=== PATIENT | female | born 1940 | race Caucasian/White ===

== ENCOUNTER 2021-06-05 13:54 | Outpatient (REF) | payer MEDICARE, SELFPAY ==
--- NOTE | ~2021-06-05 | XR_ITS ---
EXAMINATION: XR CHEST CLINICAL INFORMATION: Dyspnea on exertion COMPARISON: Previous chest x-ray most recent November 2014 TECHNIQUE: 2 views of the chest were obtained. FINDINGS: The cardiac and mediastinal contours are stable. The thoracic aorta is tortuous but unchanged. The lungs are clear. There is no pleural effusion or pneumothorax. There are degenerative changes of the spine. XR/XR chest 2V IMPRESSION: No evidence for acute disease in the chest.
== END 2021-06-05 13:55 | disposition home or self-care (01) ==
LOC: HO.XRAY 13:54
PROVIDERS: PCP Internal Medicine; Visit Provider Internal Medicine
DX: R06.00 Dyspnea, unspecified (principal)
CPT/HCPCS: 71046

== ENCOUNTER 2021-08-14 08:29 | Outpatient (REF) | payer MEDICARE, SELFPAY ==
--- NOTE | 2021-08-14 | PFT_ITS ---
Forced vital capacity is 73%, FEV1 93%, FEV1/FVC ratio 94. TNL41-64 215% and MVV is 93%. Patient declined to have bronchodilator challenge. Total lung capacity 76%. Residual volume is 70%. Diffusion capacity 74%. These findings are consistent with mild restrictive pulmonary disorder. No obstructive airway disorder. MD PAULINO Christy/JOSÉ / [id number]
== END 2021-08-14 08:30 | disposition home or self-care (01) ==
LOC: HO.RESP 08:29
PROVIDERS: PCP Internal Medicine; Visit Provider Internal Medicine
DX: R06.00 Dyspnea, unspecified (principal)
CPT/HCPCS: 94010; 94727; 94729

== ENCOUNTER 2021-09-04 13:15 | Outpatient (REF) | payer MEDICARE, SELFPAY ==
--- NOTE | ~2021-09-04 | CT_ITS ---
EXAMINATION: CT CHEST WITHOUT CONTRAST CLINICAL INFORMATION: Dyspnea. COMPARISON: Chest x-ray 11/05/2021. TECHNIQUE: Multidetector volumetric CT imaging of the chest was done. Axial MIP volume rendering provided. Sagittal and coronal reformatted images were obtained. This CT examination was performed using dose optimization techniques as appropriate, variously including the following: *Automated exposure control *Adjustment of mA and/or kV according to patient size (this includes techniques or standardized protocols for targeted exams where dose is matched to indication/reason for exam; i.e. extremities or head) *Use of iterative reconstruction technique DLP: 148 mGy-cm. FINDINGS: DISPLAY MAKER: Unremarkable chest exam. LUNGS: The lungs are well expanded with mild ground-glass attenuation seen throughout both upper lobes and lower lobes. There is peripheral reticular stranding in the left upper lobe, lower lobe and lingular segments. Minimal peripheral reticular stranding is also seen in the right upper lobe anterior segment. There are no pulmonary nodules seen. There is nonspecific linear focal thickening of the right major fissure. Suspect mild loss of left lung volume. MEDIASTINUM: The thyroid lobes are symmetrical and normal. The central trachea and the bronchi are widely patent. The heart size and the great vessels are normal caliber. There are small shotty lymph nodes in the mediastinum. Trace coronary artery calcifications are present. No pericardial effusion seen. PLEURA: There is no pleural effusion. No pleural mass or thickening. AXILLA: No lymphadenopathy. There is mild asymmetric thickening of the right breast parenchyma. UPPER ABDOMEN: Visualized liver, spleen, pancreas and bilateral adrenal glands are unremarkable. OSSEOUS STRUCTURES: There are degenerative disc changes and ventral spondylosis dorsal spine. No aggressive lytic or sclerotic process seen. CT/CT chest wo con IMPRESSION: Diffuse bilateral upper and lower lobe ground-glass attenuation. In addition there is peripheral reticular interstitial thickening in the anterior segments of left upper lobe, lingula and minimal right upper lobe suggestive of inflammatory or infectious process. No consolidation seen. No abnormal pleural effusion, pleural thickening or mediastinal lymphadenopathy. Fleischner guidelines were followed.
== END 2021-09-04 13:16 | disposition home or self-care (01) ==
LOC: HO.CT 13:15
PROVIDERS: Visit Provider Internal Medicine
DX: R06.00 Dyspnea, unspecified (principal)
CPT/HCPCS: 71250

== ENCOUNTER 2021-10-22 13:56 | Outpatient (REF) | payer MEDICARE, SELFPAY ==
[2021-10-22 14:17] LABS: MANUAL DIFF FLAG NO
[2021-10-22 15:09] LABS: Basophils Absolute Auto 0.1 X10*3/uL (0.0-0.2); Basophils Percent Auto 0.7 % (0-2); Eosinophils Absolute Auto 0.4 X10*3/uL (0.0-0.4); Eosinophils Percent Auto 5.6 % (0-4); Hematocrit 44.2 % (37.0-47.0); Hemoglobin 14.7 g/dl (12.0-16.0); Imm Gran Abs Auto 0.02 X10*3/uL (0.00-0.03); Imm Gran Pct Auto 0.3 % (0.0-0.4); Lymphocytes Percent Auto 27.9 % (20-40); Mean Corpuscular HGB Conc 33.3 g/dl (31.0-35.0); Mean Corpuscular Hemoglobin 29.9 pg (27.0-33.0); Mean Platelet Volume 9.9 fL (9.4-12.3); Monocytes Absolute Auto 0.4 X10*3/uL (0.1-1.2); Neutrophils Absolute Auto 4.3 x10*3/uL (2.0-8.3); Neutrophils Percent Auto 59.5 % (45-73); Platelet Count 233 X10*3/uL (160-400); Red Blood Count 4.91 X10*6/uL (4.20-5.50); Red Cell Distribution Width 14.5 % (11.0-16.0); White Blood Count 7.3 X10*3/uL (4.8-10.8)
[2021-10-22 15:53] LABS: Erythrocyte Sedimentation Rate 18 MM/HR (0-20)
[2021-10-27 14:25] LABS: Angiotensin Converting Enzyme 45.8 U/L (9-67)
[2021-10-27 16:07] LABS: Alpha 1 Anti-trypsin 144 mg/dL (83-199)
[2021-10-27 17:26] LABS: Cyclic Citrullinated Peptide <16 UNITS
[2021-10-27 18:46] LABS: ANA Pattern 2 Nuclear, Homogeneous; ANA Titer 2 1:40 titer; Anti Nuclear Antibody Screen POSITIVE (NEGATIVE); Anti Nuclear Antibody Titer 1:40 titer
[2021-10-28 09:17] LABS: Anti DNA DS Antibody <1 IU/mL; Myeloperoxidase Antibody <1.0 AI; Proteinase 3 PR3 Antibodies <1.0 AI
[2021-10-28 14:46] LABS: Asperg fumigatus Precip Abs NEGATIVE (NEGATIVE); Micropoly faeni Abs NEGATIVE (NEGATIVE); Pigeon serum Abs NEGATIVE (NEGATIVE); Saccharo pora viridis Abs NEGATIVE (NEGATIVE); Thermo candidus Abs NEGATIVE (NEGATIVE); Thermoa vulgaris #1 NEGATIVE (NEGATIVE)
== END 2021-10-22 13:57 | disposition home or self-care (01) ==
LOC: HO.LAB 13:56
PROVIDERS: PCP Internal Medicine; Visit Provider Hospitalist
DX: J84.9 Interstitial pulmonary disease, unspecified (principal); R91.8 Other nonspecific abnormal finding of lung field
CPT/HCPCS: 36415; 82103; 82164; 85025; 85652; 86021; 86038; 86039; 86200; 86225; 86331; 86606; 86609; 94618; 99202

== ENCOUNTER → 2021-12-03 12:51 | Outpatient (BNVA) | payer MEDICARE, SELFPAY | PROVIDERS: PCP Internal Medicine; Visit Provider Hospitalist | DX: J84.9 Interstitial pulmonary disease, unspecified (principal); J18.9 Pneumonia, unspecified organism; J96.11 Chronic respiratory failure with hypoxia | CPT/HCPCS: 94618; 99202; 99212 ==

== ENCOUNTER 2021-12-15 10:21 | Outpatient (REF) | payer MEDICARE, SELFPAY ==
--- NOTE | ~2021-12-15 | CT_ITS ---
EXAMINATION: CT CHEST WITHOUT CONTRAST CLINICAL INFORMATION: Pneumonia COMPARISON: Previous chest CT August 2021 and chest x-ray May 2021 TECHNIQUE: Multidetector volumetric CT imaging of the chest was done. Axial MIP volume rendering provided. Sagittal and coronal reformatted images were obtained. This CT examination was performed using dose optimization techniques as appropriate, variously including the following: *Automated exposure control *Adjustment of mA and/or kV according to patient size (this includes techniques or standardized protocols for targeted exams where dose is matched to indication/reason for exam; i.e. extremities or head) *Use of iterative reconstruction technique DLP: 322 mGy-cm FINDINGS: ELECTRONIC TEST TECHNICIAN: Volume loss and increased markings in the left lung LUNGS: There is slight volume loss to the left hemithorax with shift the central mediastinal structures to the left. There is [place] 6 attenuation in the lungs questionable for a mosaic perfusion. There are increased linear markings seen in the left upper and left lower lobes and denser scattered areas of groundglass attenuation. May represent post infectious or inflammatory scarring. Unilateral appearance makes interstitial lung disease unlikely. No suspicious pulmonary nodule. No endobronchial or endotracheal lesion. MEDIASTINUM: The mediastinum is normal. CORONARY ARTERY CALCIFICATION: Mild PLEURA: There is no pleural effusion. No pleural mass or thickening. AXILLA: No lymphadenopathy. UPPER ABDOMEN: Abnormal contour to the upper pole of the right kidney measuring 3 cm. Appearance is questionable for complex cyst or mass. Follow-up renal ultrasound recommended. Post cholecystectomy. Diverticulosis of the colon. OSSEOUS STRUCTURES: Degenerative changes of the spine and left shoulder.. CT/CT chest wo IV con IMPRESSION: Slight volume loss to the left hemithorax with shift of the central mediastinal structures to the left. Increased linear markings and denser areas of groundglass attenuation in the left upper and left lower lobes. May represent post infectious or inflammatory scarring. Unilateral appearance makes interstitial lung disease unlikely. Mosaic attenuation in the lungs questionable for mosaic perfusion. 3 cm irregular contour to the upper pole of the right kidney questionable for complex cyst or mass. Follow-up renal ultrasound recommended. Fleischner guidelines were followed.
[2021-12-16 15:56] LABS: Anti DNA DS Antibody 1 IU/mL; Antibody to SS-A Antigen <1.0 NEG AI (<1.0 NEG); Antibody to SS-B Antigen <1.0 NEG AI (<1.0 NEG); JO 1 Antibody <1.0 NEG AI (<1.0 NEG); Scleroderma 70 Antibody <1.0 NEG AI (<1.0 NEG)
[2021-12-17 10:26] LABS: Complement C3 148 mg/dL (83-193)
== END 2021-12-15 10:22 | disposition home or self-care (01) ==
LOC: HO.CT 10:21
PROVIDERS: PCP Internal Medicine; Visit Provider Hospitalist
DX: J84.9 Interstitial pulmonary disease, unspecified (principal)
CPT/HCPCS: 36415; 71250; 86160; 86225; 86235

== ENCOUNTER → 2022-01-12 13:56 | Outpatient (BNVA) | payer MEDICARE, SELFPAY | PROVIDERS: PCP Internal Medicine; Visit Provider Hospitalist | DX: J18.9 Pneumonia, unspecified organism (principal); J84.9 Interstitial pulmonary disease, unspecified; J96.11 Chronic respiratory failure with hypoxia; Z79.52 Long term (current) use of systemic steroids; Z99.81 Dependence on supplemental oxygen | CPT/HCPCS: 99212 ==

== ENCOUNTER 2022-02-09 11:09 | Outpatient (REF) | payer MEDICARE, SELFPAY ==
--- NOTE | ~2022-02-09 | US_ITS ---
EXAMINATION: US RETROPERITONEAL LIMITED (RENAL ONLY) CLINICAL INFORMATION: Renal mass seen on CT.. COMPARISON: CT chest 12/15/2021 TECHNIQUE: Real-time sonographic evaluation performed. FINDINGS: RIGHT KIDNEY: 12.0 x 4.7 x 6.0 cm (SAG x AP x TRV). There is a solid echogenic mass, lateral mid right kidney, at 33 x 32 x 33 mm. Renal cell carcinoma could have this appearance. This can be biopsied under ultrasound guidance. Right kidney otherwise normal. No calcification or hydronephrosis or perinephric collection. LEFT KIDNEY: 10.1 x 5.2 x 4.8 cm (SAG x AP x TRV). The kidney is normal in size, contour, and echogenicity. Renal cortical thickness is normal. No calculi or focal parenchymal lesions. No hydronephrosis. US/US renal BI IMPRESSION: Solid renal mass suspicious for a small hypernephroma. Recommend tissue sampling..
== END 2022-02-09 11:10 | disposition home or self-care (01) ==
LOC: HO.HMGCX 11:09
PROVIDERS: PCP Internal Medicine; Visit Provider Internal Medicine
DX: N28.1 Cyst of kidney, acquired (principal)
CPT/HCPCS: 76775

== ENCOUNTER → 2022-05-06 09:45 | Outpatient (BNVA) | payer MEDICARE, SELFPAY | PROVIDERS: PCP Internal Medicine; Visit Provider Hospitalist | DX: Z01.811 Encounter for preprocedural respiratory examination (principal); J84.9 Interstitial pulmonary disease, unspecified; J18.9 Pneumonia, unspecified organism; J96.11 Chronic respiratory failure with hypoxia; Z99.81 Dependence on supplemental oxygen | CPT/HCPCS: 94010; 94618; 99212 ==

== ENCOUNTER → 2022-07-30 12:58 | Outpatient (BNVA) | payer MEDICARE, SELFPAY | PROVIDERS: PCP Internal Medicine; Visit Provider Nurse Practitioner Family | DX: J84.9 Interstitial pulmonary disease, unspecified (principal) | CPT/HCPCS: 99212 ==

== ENCOUNTER 2022-09-01 10:03 | Outpatient (REF) | payer MEDICARE, SELFPAY ==
--- NOTE | 2022-09-01 11:30 | PFT_ITS ---
INDICATION: Interstitial lung disease. SPIROMETRY: The FEV1 to FVC of 92% with an FEV1 of 1.37 L which is 86% predicted and FVC of 1.4 L which is 68% predicted. LUNG VOLUMES: Total lung capacity 82% predicted with an expiratory reserve volume of 40% predicted. DIFFUSION CAPACITY: DLCO of 67% predicted. COMPARISONS: Not available at this time. IMPRESSION: No evidence of definitive obstructive nor restrictive ventilatory defects. The patient refused bronchodilators. So post bronchodilator numbers are not available. Lung volumes are low normal consistent with her interstitial lung disease and she does have a decrease in the expiratory reserve volume. The patient has a moderate diffusion impairment. We will need her previous PFTs to compare. Clinical correlation warranted. MD DANNY Eisenberg/JOSÉ / [id number]
== END 2022-09-01 10:04 | disposition home or self-care (01) ==
LOC: HO.RESP 10:03
PROVIDERS: PCP Internal Medicine; Visit Provider Hospitalist
DX: J84.9 Interstitial pulmonary disease, unspecified (principal)
CPT/HCPCS: 94010; 94727; 94729

== ENCOUNTER → 2022-09-01 11:30 | Outpatient (BNV) | payer MEDICARE, SELFPAY | PROVIDERS: PCP Internal Medicine; Visit Provider Hospitalist | DX: J84.9 Interstitial pulmonary disease, unspecified (principal) | CPT/HCPCS: 94060; 94727; 94729 ==

== ENCOUNTER 2022-09-07 12:35 | Outpatient (REF) | payer MEDICARE, SELFPAY ==
--- NOTE | ~2022-09-07 | CT_ITS ---
EXAMINATION: CT CHEST WITHOUT CONTRAST CLINICAL INFORMATION: Interstitial pulmonary disease. COMPARISON: None available. TECHNIQUE: Multidetector volumetric CT imaging of the chest was done. Axial MIP volume rendering provided. Sagittal and coronal reformatted images were obtained. This CT examination was performed using dose optimization techniques as appropriate, variously including the following: *Automated exposure control *Adjustment of mA and/or kV according to patient size (this includes techniques or standardized protocols for targeted exams where dose is matched to indication/reason for exam; i.e. extremities or head) *Use of iterative reconstruction technique DLP: 138 mGy-cm FINDINGS: SMALL ANIMAL CARETAKER: Expanded lungs are clear. LUNGS: There is centrilobular emphysema with increased intralobular interstitial thickening in the left upper lobe and to a lesser extent the right upper lobe. Also visualized is ground-glass attenuation in both upper lobes. Mild interstitial changes and thickening with atelectasis seen in the lingula. There is no bronchiectasis. No pulmonary nodules or mass. MEDIASTINUM: Heart size of the great vessels are normal caliber. Central trachea and the bronchi are widely patent. Thyroid lobes are symmetrical and normal. Small shotty lymph nodes are seen in the pretracheal and precarinal space. Most prominent lymph node measures 8 mm in the pretracheal space on axial image 11/10. CORONARY ARTERY CALCIFICATION: There is mild coronary artery calcifications present. PLEURA: There is no pleural effusion. No pleural mass or thickening. AXILLA: The dilated lymph nodes are present in bilateral axilla. UPPER ABDOMEN: Visualized liver, spleen, pancreas and bilateral adrenal glands are unremarkable. OSSEOUS STRUCTURES: No aggressive lytic or sclerotic process seen. CT/CT chest wo IV con IMPRESSION: 1. Emphysematous lungs with chronic interstitial thickening in left upper lobe, lingula and parenchymal haziness in both upper lobes and lower lobes. Findings are suggestive of chronic interstitial lung disease. 2. No acute pneumonic process or pleural effusion seen. 3. There are reactionary benign-appearing lymph nodes in the mediastinum. Fleischner guidelines were followed.
== END 2022-09-07 12:36 | disposition home or self-care (01) ==
LOC: HO.CT 12:35
PROVIDERS: PCP Internal Medicine; Visit Provider Nurse Practitioner Family
DX: J84.9 Interstitial pulmonary disease, unspecified (principal)
CPT/HCPCS: 71250

== ENCOUNTER 2022-09-21 14:38 | Outpatient (AMB) | payer MEDICARE, SELFPAY ==
[2022-09-21 15:16] VITALS: BP 126/70; PULSE 66; O2SAT 91; BMI 30.3
--- NOTE | 2022-09-21 15:16 | A.OFFVIS_ITS ---
Intake Vital Signs 09/21/22 15:16 Height 5 ft Weight 155 lb BMI 30.3 BP 126/70 Blood Pressure Location Lt brachial Position Sitting Pulse 66 Pulse Source Pulse Oximeter Pulse Oximetry (%) 91 L Oxygen Delivery Method Room Air Intake Visit Reasons: COPD Inventory Control Planner Required: No Allergies latex [LATEX] Allergy (Intermediate, Verified 09/21/22 15:20) RASH seasonal Allergy (Unknown, Uncoded 09/21/22 15:20) Anaphylaxis HPI HPI Comments History of Present Illness Details The patient is a 81 year woman who was referred to Pulmonary to evaluate abnormal CT scan of the chest. The patient states that she has been feeling otherwise well. Denies any significant shortness of breath or cough or any chest discomfort. However, she does state that [facility] and she does not do a lot of walking. She went to see her primary care doctor who checked her pulse oximeter and was noted to be low. Therefore she had additional imaging studies including a CT scan of the chest that was found to be abnormal. I did personally viewed the CT scan demonstrating areas of mosaic pattern is of ground-glass opacities and also some reticular changes primarily in the lingula. The patient denies any significant exposure to any fumes or toxins. Denies any hobbies with any exposures to organic or inorganic dusts. She denies any exposure to any farm animals or farm or hay. She does not have any pets. She denies any mold in the household. The interesting part of the story is that the patient has a identical twin who lives in [place]. At the same time that she was undergoing a CT scan of the chest for further evaluation of underlying interstitial lung disease the patient is identical sister was also going to the same process. She is also going to see a specialist. The details of that evaluation are not available at this time. She denies any significant rashes or joint pains or muscle discomfort or muscle weakness. During the office visit we did go for 6 minute walk test. The patient did desaturate down to 88%. She had a dyspnea score of 3/10 and did go up to 4-10 when she was a little more hypoxic. We did rest for a minute and her oxygen improved to the low 90s. The patient did qualify for oxygen but she does not 1 at this time. 12/03/2021 the patient is here for a pulmonary follow-up visit. She is here with her sister. She did take the prednisone. The prednisone made her feel better although did not really help her breathing symptoms. She really denies any significant dyspnea on exertion. She walks regularly and also uses a recumbent bike and denies any significant shortness of breath. We did review her blood work which was relatively negative except for a positive RD with the very low titer of 01:40. There is no real history of connective tissue conditions in the family. There is a history pulmonary fibrosis. Both her mother and also her sister that is being evaluated at this time. Her last CT scan did demonstrate reticular changes in addition to ground-glass opacities. 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 During the visit the patient did have evidence of bilateral crackles and her 6 minutes walk test she desaturated down to about 86%. Her dyspnea score was 5/10 during. based on that explained to the patient that she needs to start oxygen supplementation with activity. She is a bit reluctant but she is willing to try for now. Will plan to repeat the CT scan and then follow up with a painful to see you if there is no significant progression of the pulmonary fibrosis. With talk about considering all to have a biopsy although patient is at this point reluctant to do so. Would not be unreasonable to keep the patient on small dose of prednisone for that reason. Indeed she has worsening fibrotic changes using wanted fibrotic agent would also be an option. 01/12/2022 the patient is here with her daughter for pulmonary follow-up visit. She has been on the 10 mg of prednisone. She is concerned because of the adverse effects of the medication and affecting her sleep. We did keep her on the prednisone in view of the elevated RD and also the elevation in the eosinophils which may manifest with an interstitial process. Specially since she did have some areas of ground-glass opacities suggesting pneumonitis. The patient however denied a see any significant improvement or difference. She did have a repeat CT scan of the chest and we personally reviewed that together. We also compared to her last CT scan that she had several months back. Appears to be some interval increase in the degree of reticulations and pulmonary fibrosis primarily on the left lung more than the right. She still has areas of ground-glass opacities in addition to mosaic pattern. No clear etiology for the interstitial lung disease based on the blood work. The patient is not interested in pursuing any invasive diagnostic interventions such as biopsies. Clinically the patient is doing well and she denies any respiratory symptoms at all. All this came about because she was noted to have an abnormal CT scan when she was referred to Pulmonary. She did have 2 6 minutes walk test both that were consistent with hypoxia qualify for oxygen. The patient also had an overnight oximetry demonstrating significant hypoxia while sleeping at least for close to 3 hours for she spent below 88%. Therefore the patient needs to continue using the oxygen with activity and also at nighttime while sleeping. She is adamant that she has wants to get an [employer] device portable oxygen concentrator. Will go ahead and fill out some paperwork in order for her to receive that. the patient is wondering if she is going to have to stay on the oxygen. I did recommend that she continue to use it for now and we will retest her once she returns in . Patient is going to be weaning off the prednisone at this time. And the patient is not interested in any antifibrotic therapy at this time. Based on her clinical presentation during the next visit we can discuss further anti fibrotic therapy if she would like. Patient does have a lot of questions about her condition and the fact that she is fairly asymptomatic. The fact that her 20 sister also found to have some interstitial lung changes which she does not require oxygen and she is questioning the whole process. I can only tolerate that we have tested her multiple times and all times have demonstrated evidence of hypoxia even on the day of presentation the patient is stands that using the oxygen will help her with her organ function including heart brain and other end-organ functions. Her her daughter was wondering about a diagnosis next [place] to her for now based on the fact that there is some progression the possibility of idiopathic pulmonary fibrosis needs to be in differential. Explained to the patient and the daughter that with the idiopathic pulmonary fibrosis the fibrosis is progressive. Therefore, will continue to monitor for any progression of disease. 05/06/2022 the patient is here for a pulmonary preoperative evaluation. Overall the patient has been doing about the same from a respiratory status. She continues use the oxygen with activity and sleep. She denies any worsening shortness breath or any new respiratory complaints. She denies any evidence of any active connective tissue disease. She has been off all corticosteroid therapy. She was found to have a renal mass. Concerning for malignancy. Now after being evaluated by Urology see felt that she requires full nephrectomy. Because of her underlying respiratory disease stable also recommending ablation. We did review her spirometry also her PFTs from last year in addition to her 6 minutes walk test. Based on this the patient does have increased risk for perioperative pulmonary complications. However, she is medically optimize any condition is not worsening. Therefore, I do believe that she will tolerate general anesthesia and will tolerate her surgery. She will have increased risks including further hypoxia in addition to risk for pneumonia and atelectasis. Currently she is medically optimized from a pulmonary standpoint. She does not need any bronchodilator therapy. She is using her oxygen effectively. After she recovers from her surgery will reassess her underlying interstitial lung disease with a repeat CT scan and PFTs. At that point we can decide if there is any evidence of any progression to consider small dose steroids versus antifibrotic therapies. 09/21/2022 the patient is here for pulmonary follow-up visit. She recovering well from her surgery. She did have increased shortness of breath after surgery. She did follow-up in the office and was reassuring that everything was okay. The patient has been using the oxygen a little bit more often specially after surgery. she was having issues with high blood pressure she was started on a new blood pressure medication. After the medication she noticed that oxygen actually dropped to 84% which became very concerning for her. Therefore she stopped that medicine which was amlodipine. Seems that her blood pressure is better at this time. The patient also underwent a CT scan of the chest which I personally reviewed with her and her daughter. It appears some slight increase in the reticular changes primarily in the left side. There is also evidence of ground-glass opacities suggestion a component of inflammation or likely subtle scarring. Patient does have a history of slightly elevated connective tissue disease laboratory suggesting the possibility of connective tissue disease related pulmonary fibrosis. She had been on prednisone before and she did tolerated fairly well. She is willing to try smaller dose to see if she can tolerated and try to minimize progression of the scarring. Another option is to consider antifibrotic agent specially with slight worsening of disease. She is going to consider this as well. Will go ahead and start her on therapy with prednisone 10 mg daily and she is going to taper down to the lowest most effective dose which I hope is going to be 10 mg every other day. She is going to monitor closely her oxygen supplementation. Also to note that she does have a twin with very similar condition and she is also now on a small dose of prednisone. She is reassured I am also reassured that the amount of progression appears to be fairly minimal in a year's time. We did talk about pulmonary rehabilitation. The patient would really benefit from rehabilitation at this time specially now that she is recovering from her renal cell cancer surgery. [facility] Medical History (Updated 09/21/22 @ 20:46 by Travis Monge MD) Chronic respiratory failure with hypoxia ILD (interstitial lung disease) Pneumonitis Pre-op chest exam Renal mass Social History (Updated 10/22/21 @ 13:23 by Afshan Huerta Alejandro) Patient Tobacco Use Status: Never used Tobacco Review of Systems Const Denies fever(s) and Denies night sweats Eyes Denies change in vision ENT Denies dizziness Card Denies chest pain, Denies dyspnea and Reports dyspnea on exertion Resp Denies chest congestion, Denies cough, Denies dyspnea, Reports dyspnea on exertion and Denies wheezing GI Reports no additional complaints Reports as per HPI Musc Reports no additional complaints Skin/Breast Denies rash Neuro Reports no additional complaints and Denies dizziness Aller/Immun Denies wheezing Physical Exam Vital Signs: Last Vital Signs Pulse 66 09/21/22 15:16 BP 126/70 09/21/22 15:16 Pulse Ox 91 L 09/21/22 15:16 Oxygen Delivery Method Room Air 09/21/22 15:16 BMI result Body Mass Index 30.3 Const General: comfortable HEENT Head: Yes normal to inspection Neck Neck: Yes supple Chest Chest palpation & inspection: normal inspection of the chest Resp Effort & Inspection: normal respiratory effort Auscultation: rales bilateral in the mid lung sharp, rhonchi and diminished lung sounds Cardio Rate: regular rate Rhythm: regular rhythm Heart sounds: S1 normal heart sound present and S2 normal heart sound present GI Auscultation: normal bowel sounds General: Yes no CVA tenderness Back/Spine/Pelvis Back: no CVA tenderness Skin General skin exam: no rashes or lesions noted Extrem General: Yes no clubbing, cyanosis or edema Assessment & Plan Assessment & Plan (1) Pneumonitis: Code(s): J18.9 - Pneumonia, unspecified organism (2) ILD (interstitial lung disease): Code(s): J84.9 - Interstitial pulmonary disease, unspecified (3) Chronic respiratory failure with hypoxia: Code(s): J96.11 - Chronic respiratory failure with hypoxia Plan Continue oxygen 2L pulse/cont with activity and 2L with sleep. restart Prednisone start pulmonary rehab consider anti fibrotic agents (OFEV) serial CT chest and PFTs F/U 3-4 months Orders: Orders Pulmonary Rehab Today J84.9 - Interstitial pulmonary disease, unspecified, J96.11 - Chronic respiratory failure with hypoxia Medications: New prednisone 10 mg PO DAILY 30 days 30 tabs 4RF Coding Level of Care Code Est Pt Level 4 (14602) Diagnoses Pneumonitis J18.9 ILD (interstitial lung disease) J84.9 Chronic respiratory failure with hypoxia J96.11 Time Spent (min) 20
== END 2022-09-21 15:47 | disposition home or self-care (01) ==
PROVIDERS: PCP Internal Medicine; Visit Provider Hospitalist
DX: J84.9 Interstitial pulmonary disease, unspecified (principal); J96.11 Chronic respiratory failure with hypoxia
CPT/HCPCS: 99214

== ENCOUNTER → 2022-09-21 14:38 | Outpatient (BNVA) | payer MEDICARE, SELFPAY | PROVIDERS: PCP Internal Medicine; Visit Provider Hospitalist | DX: J18.9 Pneumonia, unspecified organism (principal); J84.9 Interstitial pulmonary disease, unspecified; J96.11 Chronic respiratory failure with hypoxia | CPT/HCPCS: 99212 ==

== ENCOUNTER 2022-11-30 10:00 | Outpatient (RCR) | payer MEDICARE, SELFPAY ==
[2022-10-11 10:13] VITALS: BP 165/90; PULSE 68
--- NOTE | 2022-10-11 12:01 | MHC.PR.IN ---
[address] [phone] F: [phone] Pulmonary Rehabilitation Individual Treatment Plan Sudha Meek is a 81 year old (F) who was referred to the Pulmonary Rehabilitation program by Travis Monge. This patient who has a primary diagnosis of ILD will begin pulmonary rehabilitation with monitored exercise and education to optimize both physical and social performance, autonomy, increase strength and endurance, and control dypsnea. The following information was gathered from the patient: Smoking History Current smoking status: Former Smoker Years smoked: 5 Last time smoked: only smoked in dooool Quit Date: 1960 Assistance with quitting needed: Past Medical History Medical History: Hypertension Pneumonia Surgeries: Past Pulmonary Hospitalizations # of hospitalizations in the past year: 0 # of ER vists due to breathing troubles in the past year: 0 Current Pulmonary Medications Prednisone 10mg every other day Atenolol 100mg daily Allergy History Allergies: seasonal Current Oxygen Use Supplemental Oxygen Device Used: Concentrator Cylinders Liter flow: 2lpm How often: With sleep and exercise Pulmonary History Cough: Yes: Pt states her cough is related to allergies Sputum: No: dry Sleep device: No Other pulmonary devices: Peak flow meter: No Nebulizer: No Suction: No Ventilator: Secretion clearance: No PEP: No Influenza vaccine: Yes Pneumonia vaccine: Yes Patient Questionaire Scores MRC Dyspnea Scale (mRC): 2 CAT Score: PHQ-9 Score: 0 Pulmonary Function Test and Vital Signs Pulmonary Function Test Date of PFT 09/01/2022 FVC Actual 1.48% FVC Predicted 2.15% FEV1 Actual 1.37% FEV1 Predicted 1.58% FEV1/FVC Actual 93% FEV1/FVC Predicted 74% DLCO 12.75 Vital Signs Heart Rate 68 Blood Pressure 165/90 SpO2 93% Respiratory Rate 16 rapid shallow Six Minute Walk Test Supplemental Oxygen O2 L/min: 2 FiO2: Resting Vitals SpO2: 90% BP: 165/90mmHg HR: 68 bpm Total Distance 89 Number/ Time of Rests (sec) 0 0 NOELLE 3 METS 1.97 SpO2 89 HR (bpm) 92 MPH 1.27 Meters/Minute 34 Post-walk Vitals SpO2: 90 BP: HR: 85 Performance Observations Pt walked, unassisted, and on 2lpm inogen, without any breaks. Pulmonary Rehabilitation Plan Topic Problem Goal Plan Comment Education Verbalize adequate disease self-management skills Effective control of dyspnea Advanced directives Disease overview Exacerbation prevention and management Home exercise program Intimacy Panic Control Respiratory medication Secretion clearance Travel Initiated and ongoing. Educated pt on interstitial lung disease and oxygen prescription. Hypoxia SpO2 >90 Appropriate portable oxygen system obtained Using oxygen as ordered Monitor oxygen saturation with rest and exercise Recommend appropriate liter flow to patient and physician Educate appropriate use of oxygen at rest and with activity Educate on oxygen safety Educate on oxygen systems Pt performed 6 minute walk on personal inogen, to make sure 2lpm is appropriate. Pt educated on the use of continuous oxygen use during exercise. Ongoing education. Psychosocial Adequate treatment of depression Referral to MD for counseling Verbalizes improved psychosocial coping strategies & mechanisms Review screening results Benefits of exercise Coping techniques Educated initiated and ongoing. Educated on the benefits of exercise and ADL's Activities of Daily Living Impaired ADL management Fear of severe dyspnea ADL management and control of dyspnea ADL performance with pacing and pursed lip breathing Educate on pursed lip breathing and pacing with stairs and activity Education initiated and ongoing. Diaphragmatic and pursed lip breathing covered with lesson and demonstration for teach back. Nutrition & Weight Management N/A Lose weight during program Education classes Education re ongoing weight monitoring Rate my Plate initiated with patient. Pt states she is not on any particular diet at this time. Further education will be ongoing throughout program. Tobacco Managment NA Pt has quit smoking in 1960. Pt states no relapse since quitting. Medication Medication non-adherence Adherence to prescribed medications Importance of medication compliance Medications purpose Medication schedule Medication side-effects Prescribed medications Pt states she uses prescribed medication 100% of the time. Inhaled Medication N/A No inhalers prescribed at this time. Secretion Management N/A, pt able to self manage secretions Educated on montez cough Exercise & Fitness Decreased strength & endurance Knowledge deficit of exercise guidelines & safety No regular exercise Pulmonary Rehab 2-3x/week Weight or resistance training 2-3x/week Aerobic Exercise: 30-60mins x 9 weeks Review benefits & core components of exercise program Review how to measure and monitor dyspnea level Review exercise safety guidelines Review frequency and duration of exercise Review exercise intensity NOELLE RPD 3-4/10 Review home exercise guidelines Recumbent bike L1.0/Mets 1.7/ RPD 3 5minutes UBE L1.0 Mets `1.9/RPD 3 5 minutes Nustep L1.0 Mets 2.4 5 minutes. Diabetes Management Does patient have DM?: Diabetes Type: Current Blood Glucose Level: Current A1C Level: Self Check: Pt is not a diabetic at this time. Patient's Goals and Concerns Pt goal is to feel comfortable in doing things. She would like to feel better using oxygen as needed to continue living a normal life. . Linoleum Tile Floor Layer Review I have reviewed the outcome assessment, treatment plan, goals, and problem list. The treatment plan and goals support the patient's needs and abilities, and thereby recommend that the exercise plan be completed as documented. Special precautions or modifications to the treatment plan include:
[2022-10-19 13:01] VITALS: BP 153/80; BP 95/80
[2022-10-21 12:11] VITALS: BP 128/76; BP 132/84
[2022-10-26 14:35] VITALS: BP 128/78; BP 132/82
[2022-10-28 15:09] VITALS: BP 118/68; BP 120/72
[2022-11-02 11:46] VITALS: BP 122/82; BP 138/66
[2022-11-04 13:33] VITALS: BP 128/62; BP 98/62
[2022-11-09 12:05] VITALS: BP 118/62; BP 118/80
[2022-11-11 11:51] VITALS: BP 118/80; BP 120/72
[2022-11-16 13:53] VITALS: BP 130/70; BP 138/94
--- NOTE | 2022-11-19 07:58 | MHC.PR.RE ---
[address] [phone] F: [phone] Pulmonary Rehabilitation Reassessment Sudha Meek is a 81 year old (F) who was referred to the Pulmonary Rehabilitation program by Travis Monge. This patient who has a primary diagnosis of ILD has completed 9 sessions of the pulmonary rehabilitation program thus far with monitored exercise and education to optimize both physical and social performance, autonomy, increase strength and endurance, and control dypsnea. They were evaluated on . Reassessment Type: 30-day reassessment Topic Education/ Progress Progress Comments Education Demonstrates disease self-management strategies Using medications as directed Mobilizes secretions successfully Demonstrates strategies for anxiety and depression management Education sessions ongoing. Educations sessions completed prior to warmup on pulm rehab specific topics. Hypoxia Current oxygen Use: RA at rest/2lpm with exertion Demonstrates knowledge of O2 prescription at rest & with activity Demonstrates knowledge of O2 safety Pt using per Rx 100% of time The patient is using 2 liters of supplemental oxygen, with exertion/exercise as prescribed and demonstrates proper usage. she has received education on oxygen safety measures, ensuring their safe and effective use of supplemental oxygen at home. Psychosocial PHQ-9 Score: 0 Activities of Daily Living Management of ADL with Control of Dyspnea Progressing The patient is demonstrating encouraging progress in their activities of daily living (ADLs) as a result of their participation in pulmonary rehab. Nutrition & Weight Management Current weight: 158 BMI: Weight change: Weight Stable Progressing Tobacco Stages of Change: Tobacco Use: Cigerettes/Day: Any nicotine replacement: Any cessation medication: Smoking quit date: Smokeless tobacco use and amount: Pt is a non smoker Medication Met, taking 100% of time Prednisone 10mg every other day Atenolol 100mg daily Pt is 100% compliant with prescribed medications. Inhaled Medication Patient verbalizes correct technique of: MDI: Yes DPI: SMI: NEBULIZER: Secretion Management Patient provides adequate return demonstration of: Controlled cough: Yes Hernández cough: Acapella/ PEP Device: CPT: Sputum management: education ongoing on hernández cough and coughing techniques. Exercise & Fitness Aerobic Exercise Frequency: 2-3X weekly Target heart range: 116-126 Heart rate range: SpO2 Range: >90% NOELLE RPD: 3-4 Time (minutes): 69 O2 use with exercise: 2lpm Current HEP: 2-3x weekly warmup with therabands 15 min UBE wats 17 17 nustep L1.3 valdivia 14 17 min recumbent bike L1.4/valdivia 12 mets 1.7 10 mint treadmill 1.6 mets 1.7 The patient has been consistently progressing in their exercise program during pulmonary rehab, consistently achieving higher time or METs [employer] Review I have reviewed the outcome re-assessment and treatment plan. The treatment plan and goals support the patient's needs and abilities, and thereby recommend that the exercise plan be completed as documented. Special precautions or modifications to the treatment plan include:
--- NOTE | 2022-12-15 07:48 | MHC.PR.RE ---
[address] [phone] F: [phone] Pulmonary Rehabilitation Reassessment Sudha Meek is a 82 year old (F) who was referred to the Pulmonary Rehabilitation program by Travis Monge. This patient who has a primary diagnosis of ILD has completed 14 sessions of the pulmonary rehabilitation program thus far with monitored exercise and education to optimize both physical and social performance, autonomy, increase strength and endurance, and control dypsnea. They were evaluated on . Reassessment Type: 30-day reassessment Topic Education/ Progress Progress Comments Education Demonstrates disease self-management strategies Using medications as directed Mobilizes secretions successfully Demonstrates strategies for anxiety and depression management Education sessions ongoing. Educations sessions completed prior to warmup on pulm rehab specific topics. Hypoxia Current oxygen Use: RA at rest/2lpm with exertion Demonstrates knowledge of O2 prescription at rest & with activity Demonstrates knowledge of O2 safety Pt using per Rx 100% of time The patient is using 2 liters of supplemental oxygen, with exertion/exercise as prescribed and demonstrates proper usage. she has received education on oxygen safety measures, ensuring their safe and effective use of supplemental oxygen at home. Psychosocial PHQ-9 Score: 0 Activities of Daily Living Management of ADL with Control of Dyspnea Progressing The patient is demonstrating encouraging progress in their activities of daily living (ADLs) as a result of their participation in pulmonary rehab. Nutrition & Weight Management Current weight: 158 BMI: Weight change: Weight Stable Progressing Tobacco Stages of Change: Tobacco Use: Cigerettes/Day: Any nicotine replacement: Any cessation medication: Smoking quit date: Smokeless tobacco use and amount: Pt is a non smoker Medication Met, taking 100% of time Prednisone 10mg every other day Atenolol 100mg daily Pt is 100% compliant with prescribed medications. Inhaled Medication Patient verbalizes correct technique of: MDI: Yes DPI: SMI: NEBULIZER: Secretion Management Patient provides adequate return demonstration of: Controlled cough: Yes Hernández cough: Acapella/ PEP Device: CPT: Sputum management: education ongoing on hernández cough and coughing techniques. Exercise & Fitness Aerobic Exercise Frequency: 2-3X weekly Target heart range: 116-126 Heart rate range: SpO2 Range: >90% NOELLE RPD: 3-4 Time (minutes): 69 O2 use with exercise: 2lpm Current HEP: 2-3x weekly warmup with therabands 15 min UBE wats 17 17 nustep L1.3 valdivia 14 17 min recumbent bike L1.4/valdivia 12 mets 1.7 10 mint treadmill 1.6 mets 1.7 The patient has been consistently progressing in their exercise program during pulmonary rehab, consistently achieving higher time or METs [employer] Review I have reviewed the outcome re-assessment and treatment plan. The treatment plan and goals support the patient's needs and abilities, and thereby recommend that the exercise plan be completed as documented. Special precautions or modifications to the treatment plan include:
--- NOTE | 2023-01-10 07:19 | MHC.PR.RE ---
[address] [phone] F: [phone] Pulmonary Rehabilitation Reassessment Sudha Meek is a 82 year old (F) who was referred to the Pulmonary Rehabilitation program by Travis Monge. This patient who has a primary diagnosis of ILD has completed 14 sessions of the pulmonary rehabilitation program thus far with monitored exercise and education to optimize both physical and social performance, autonomy, increase strength and endurance, and control dypsnea. They were evaluated on . Reassessment Type: 60-day reassessment Topic Education/ Progress Progress Comments Education Demonstrates disease self-management strategies Using medications as directed Mobilizes secretions successfully Demonstrates strategies for anxiety and depression management Education sessions ongoing. Educations sessions completed prior to warmup on pulm rehab specific topics. Hypoxia Current oxygen Use: RA at rest/2lpm with exertion Demonstrates knowledge of O2 prescription at rest & with activity Demonstrates knowledge of O2 safety Pt using per Rx 100% of time The patient is using 2 liters of supplemental oxygen, with exertion/exercise as prescribed and demonstrates proper usage. she has received education on oxygen safety measures, ensuring their safe and effective use of supplemental oxygen at home. Psychosocial PHQ-9 Score: 0 Activities of Daily Living Management of ADL with Control of Dyspnea Progressing The patient is demonstrating encouraging progress in their activities of daily living (ADLs) as a result of their participation in pulmonary rehab. Nutrition & Weight Management Current weight: 158 BMI: Weight change: Weight Stable Progressing Tobacco Stages of Change: Tobacco Use: Cigerettes/Day: Any nicotine replacement: Any cessation medication: Smoking quit date: Smokeless tobacco use and amount: Pt is a non smoker Medication Met, taking 100% of time Prednisone 10mg every other day Atenolol 100mg daily Pt is 100% compliant with prescribed medications. Inhaled Medication Patient verbalizes correct technique of: MDI: Yes DPI: SMI: NEBULIZER: Secretion Management Patient provides adequate return demonstration of: Controlled cough: Yes Hernández cough: Acapella/ PEP Device: CPT: Sputum management: education ongoing on hernández cough and coughing techniques. Exercise & Fitness Aerobic Exercise Frequency: 2-3X weekly Target heart range: 116-126 Heart rate range: SpO2 Range: >90% NOELLE RPD: 3-4 Time (minutes): 69 O2 use with exercise: 2lpm Current HEP: 2-3x weekly warmup with therabands 15 min UBE wats 17 17 nustep L1.3 valdivia 14 17 min recumbent bike L1.4/valdivia 12 mets 1.7 10 mint treadmill 1.6 mets 1.7 The patient has been consistently progressing in their exercise program during pulmonary rehab, consistently achieving higher time or METs Control Analyst Review I have reviewed the outcome re-assessment and treatment plan. The treatment plan and goals support the patient's needs and abilities, and thereby recommend that the exercise plan be completed as documented. Special precautions or modifications to the treatment plan include:
--- NOTE | 2023-02-04 08:23 | MHC.PR.DC ---
[address] [phone] F: [phone] Pulmonary Rehabilitation Discharge Sudha Meek is a 82 year old (F) who was referred to the Pulmonary Rehabilitation program by Travis Monge. This patient who has a primary diagnosis of ILD has completed 14 sessions of the pulmonary rehabilitation program with monitored exercise and education to optimize both physical and social performance, autonomy, increase strength and endurance, and control dypsnea. They were evaluated on . Discharge summary and tests are below. Initial MRC Score: 2 Discharge MRC Score: Six Minute Walk Test Initial 6MWT Discharge 6MWT Supplemental Oxygen O2 L/min: 2 FiO2: O2 L/min: FiO2: Resting Vitals SpO2: 90% BP: 165/90mmHg HR: 68 bpm SpO2: % BP: mmHg HR: bpm Total Distance (ft) 89 Number/ Time of Rests (sec) 0 0 NOELLE 3 Walk Vitals SpO2: 89 HR: 92 SpO2: HR: Post-Walk Vitals SpO2: 90 BP: HR: 85 SpO2: BP: HR: Performance Observations Pt walked, unassisted, and on 2lpm inogen, without any breaks. Exercise Assessment on : Pre-exercise Post-exercise SpO2 Heart Rate NOELLE METS Exercise Assessment on : Pre-exercise Post-exercise SpO2 Heart Rate NOELLE METS Exercise Assessment on : Pre-exercise Post-exercise SpO2 Heart Rate NOELLE METS Topic Education/Progress Progress Comments Education Demonstrates disease self-management strategies Using medications as directed Mobilizes secretions successfully Demonstrates strategies for anxiety and depression management Education sessions ongoing. Educations sessions completed prior to warmup on pulm rehab specific topics. Hypoxia Current oxygen Use: RA at rest/2lpm with exertion Demonstrates knowledge of O2 prescription at rest & with activity Demonstrates knowledge of O2 safety Pt using per Rx 100% of time The patient is using 2 liters of supplemental oxygen, with exertion/exercise as prescribed and demonstrates proper usage. she has received education on oxygen safety measures, ensuring their safe and effective use of supplemental oxygen at home. Psychosocial PHQ-9 Score: 0 Activities of Daily Living Management of ADL with Control of Dyspnea Progressing The patient is demonstrating encouraging progress in their activities of daily living (ADLs) as a result of their participation in pulmonary rehab. Nutrition and Weight Managment Current weight: 158 BMI: Weight change: Weight Stable Progressing Tobacco Stages of Change: Tobacco Use: Cigerettes/Day: Any nicotine replacement: Any cessation medication: Smoking quit date: Smokeless tobacco use and amount: Pt is a non smoker Medications Met, taking 100% of time Pt is 100% compliant with prescribed medications. Inhaled Medications Patient verbalizes correct technique of: MDI: Yes DPI: SMI: NEBULIZER: Secretion Management Patient provides adequate return demonstration of: Controlled cough: Yes Hernández cough: Acapella/ PEP Device: CPT: Sputum management: education ongoing on hernández cough and coughing techniques. Exercise and Fitness Aerobic Exercise Frequency: 2-3X weekly Target heart range: 116-126 Heart rate range: SpO2 Range: >90% NOELLE RPD: 3-4 Time (minutes): 69 O2 use with exercise: 2lpm Current HEP: 2-3x weekly warmup with therabands 15 min UBE wats 17 17 nustep L1.3 valdivia 14 17 min recumbent bike L1.4/valdivia 12 mets 1.7 10 mint treadmill 1.6 mets 1.7 The patient has been consistently progressing in their exercise program during pulmonary rehab, consistently achieving higher time or METs Discharge Assessment: Pt discharged due to medical issues. pt will return to rehab when able to with a new order. Discharge Reason: Discharge Recommendation: :
== END 2023-02-04 08:23 | disposition home or self-care (01) ==
LOC: HO.PR 10:00
PROVIDERS: PCP Internal Medicine; Visit Provider Hospitalist
DX: J94.8 Other specified pleural conditions (principal); J96.11 Chronic respiratory failure with hypoxia
CPT/HCPCS: 94625

== ENCOUNTER 2022-11-30 11:15 | Inpatient (IN) | payer MEDICARE, SELFPAY ==
[2022-11-30] VITALS (8 sets, daily range): BP systolic 139–191; BP diastolic 89–120; PULSE 87–109; RESP 17–26; TEMP 36.4–36.8; O2SAT 91–96; BMI 30.3
--- NOTE | 2022-11-30 12:41 | ED_ITS ---
HPI - General Adult General Chief complaint: Arrhythmia/Palpitations Stated complaint: sob palpation afib Time Seen by Provider: 11/30/22 12:41 Source: patient Mode of arrival: ambulatory Limitations: no limitations History of Present Illness HPI narrative: 81-year-old female history of chronic respiratory failure with hypoxic, interstitial lung disease, pneumonitis, renal mass presenting to the emergency department complaints of palpitations, intermittent in nature, constant shortness of breath which started earlier today while at pulmonary rehab, since then has been experiencing the symptoms. Reports she does not get symptoms like these frequently. This feels different from her interstitial lung disease. No associated chest pain, headache, vision changes, dizziness, weakness, nausea, vomiting, abdominal pain. Patient comes in by wheelchair. Related Data Home Medications Medication Instructions Recorded Confirmed cholecalciferol (vitamin D3) 25 25 mcg PO DAILY 10/22/21 07/30/22 mcg (1,000 unit) capsule naproxen sodium 220 mg tablet 220 mg PO Q8H 10/22/21 07/30/22 (Aleve) atenolol 25 mg tablet 50 mg PO BID 09/21/22 Previous Rx's Medication Instructions Recorded prednisone 10 mg tablet 10 mg PO DAILY 30 days #30 tabs 09/21/22 Allergies Allergy/AdvReac Type Severity Reaction Status Date / Time latex [LATEX] Allergy Intermediate RASH Verified 09/21/22 15:20 seasonal Allergy Unknown Anaphylaxis Uncoded 09/21/22 15:20 Review of Systems 2 Review of Systems: Constitutional : No Weight loss, No Fever, No Chills, No Fatigue, No Malaise ENT/Mouth : No sore throat, No Rhinorrhea Eyes: No Eye Pain, No Swelling, No Redness Cardiovascular : No Chest Pain, + SOB, No Dyspnea on Exertion, No Orthopnea, No Edema, + Palpitations Respiratory : No Cough, No Sputum, No Wheezing Gastrointestinal : No Nausea, No Vomiting, No Diarrhea, No Constipation, No abdominal Pain, No Hematochezia, No Melena Genitourinary : No Dysuria, No Urinary Frequency, No Hematuria, Musculoskeletal : No joint pain, No Myalgias, No Joint Swelling Skin : No Skin Lesions, No rash Neuro : No Weakness, No Numbness, No Dizziness, No Headache Psych : No Anxiety/Panic, No Depression All other systems reviewed and are negative Yes all other systems are reviewed and are negative [facility] Past Medical History Attestation statement: The following information was validated with the patient. Source: old records reviewed and nursing notes reviewed Medical History Renal mass Pre-op chest exam Chronic respiratory failure with hypoxia Pneumonitis ILD (interstitial lung disease) Social History Social History Household Members: None Patient Tobacco Use Status: Never used Tobacco Years Smoked: 5 Advance Directives: Yes Advance Directives Information Provided: No Advance Directives on File: No Physical Exam ED Vital Signs: Vital Signs - 24 hr 11/30/22 11:55 11/30/22 14:33 11/30/22 14:57 Pulse Rate 106 H 109 H 87 Respiratory Rate 18 20 24 H Blood Pressure 191/120 H 174/115 H 173/103 H Pulse Oximetry 96 94 93 Oxygen Delivery Method Room Air Room Air Nasal Cannula Oxygen Flow Rate 2 BMI result Body Mass Index 30.3 vss Appearance: Alert.? Oriented X3.? No acute distress.? Head: Normocephalic, atraumatic, no step-offs or deformities Eyes: Pupils equal, round and reactive to light.? ENT: Pharynx normal.? Neck: Normal inspection.? Neck supple.? CVS: Irregularly irregular rhythm likely atrial fibrillation, heart rate around 100-110 beats per minutes.? Pulses 2+, irregular equal bilateral..? Respiratory: No respiratory distress.? Breath sounds Diminished bilaterally.? Abdomen: Soft and nontender.? Skin: Skin warm and dry.? Normal skin color.? Normal skin turgor.? Extremities: No lower extremity edema.? No calf ttp. 5/5 strength to bilateral upper and lower extremities Back: No midline tenderness, no C-spine tenderness, full range of motion, no CVA tenderness bilaterally Neuro: Oriented X 3.? No motor deficit.? No sensory deficit. CN 2-12 intact Course Reevaluation(s) Reevaluation #1: Patients CBC unremarkable. Chemistry w/o acute findings requiring intervention. Trop negative EKW w/ new onset afib rate of 95, no hx of this. BNP pending. CXR mild cardiomegaly w/ pulmonary vascular congestion. Dimer + --> CTA pending. Time: 15:00 Reevaluation #2: CTA with bilateral PEs, mild ground-glass attenuation seen in both lungs likely nonspecific. Started heparin standard dose. Patient aware of findings and treatment plan. Plans for hospital admission. Time: 15:51 Reevaluation #3: Chadvasc score- 4 Medications Administered Discontinued Medications Generic Name Dose Route Start Last Admin Trade Name Woodq PRN Reason Stop Dose Admin Atenolol 50 mg 11/30/22 14:38 11/30/22 14:56 Atenolol 50 Mg Tablet PO 11/30/22 14:39 50 mg ONCE ONE Administration Protocol Iohexol 100 ml 11/30/22 14:46 11/30/22 14:47 Iohexol 350 Mg/Ml 100 Ml Infus..Btl IV 11/30/22 14:47 100 ml ONCE ONE Administration Medical Decision Making Medical Decision Making [facility] Narrative: 1243 81-year-old female presents with palpitations, shortness of breath since this morning coming from pulmonary rehab. History of interstitial lung disease. Physical exam significant for Irregularly irregular rhythm likely atrial fibrillation, heart rate around 100-110 beats per minutes.? Pulses 2+, irregular equal bilateral. No respiratory distress.? Breath sounds Diminished bilaterally.? vital signs significant for hypertension, tachycardia. Concerns for possible new onset AFib versus pulmonary embolism versus interstitial lung disease. I do not suspect hypertensive urgency or emergency at this time however will rule out , I do not suspect pheochromocytoma. No signs of acute respiratory distress. Unlikely atypical presentation of ACS or dissection. Will rule out metabolic derangements, anemia. Plan labs, imaging, EKG. Differential Diagnosis Differential Diagnoses: The differential diagnosis associated with the presentation includes Concerns for possible new onset AFib versus pulmonary embolism versus interstitial lung disease. I do not suspect hypertensive urgency or emergency at this time however will rule out , I do not suspect pheochromocytoma. No signs of acute respiratory distress. Unlikely atypical presentation of ACS or dissection. Will rule out metabolic derangements, anemia. Admission/Observation Consideration of admission/observation: Escalation of care including admission/observation considered likely Consult Healthcare Provider Management of the patient was discussed with: Hospitalist and [facility] ([facility] + VTE) Lab Data [facility] Lab Attestation statement: I reviewed the patient's lab results. 11/30/22 13:16 11/30/22 13:16 Labs: Lab Results 11/30/22 Range/Units 13:16 WBC 8.6 (4.8-10.8) X10*3/uL RBC 5.22 (4.20-5.50) X10*6/uL Hgb 15.0 (12.0-16.0) g/dl Hct 46.3 (37.0-47.0) % MCV 88.7 (80.0-98.0) fL MCH 28.7 (27.0-33.0) pg MCHC 32.4 (31.0-35.0) g/dl RDW 14.8 (11.0-16.0) % Plt Count 191 (160-400) X10*3/uL MPV 9.1 L (9.4-12.3) fL Immature Gran % (Auto) 0.3 (0.0-0.4) % Neut % (Auto) 71.5 (45-73) % Lymph % (Auto) 19.1 L (20-40) % [place] % (Auto) 6.0 (2-11) % Eos % (Auto) 2.6 (0-4) % Baso % (Auto) 0.5 (0-2) % Lymph # (Auto) 1.6 (1.2-4.9) X10*3/uL [place] # (Auto) 0.5 (0.1-1.2) X10*3/uL Eos # (Auto) 0.2 (0.0-0.4) X10*3/uL Baso # (Auto) 0.0 (0.0-0.2) X10*3/uL Abs Immat Gran (auto) 0.03 (0.00-0.03) X10*3/uL Absolute Neuts (auto) 6.2 (2.0-8.3) x10*3/uL Absolute Nucleated RBC 0.000 (0.0-0.012) X10*3/uL Nucleated RBC % (auto) 0.0 (0.0-0.2) /100WBC PT 12.2 (11.1-13.3) SEC INR 1.0 (0.9-1.1) D-Dimer High Sensitivty 1036 NG/ML Sodium 143 (135-145) mmol/L Potassium 4.0 (3.3-5.1) mmol/L Chloride 107 (96-108) mmol/L Carbon Dioxide 25 (22-29) mmol/L Anion Gap 15 (12-20) BUN 20 H (9-16) mg/dL Creatinine 0.76 (0.5-1.4) mg/dL Estim Creat Clear Calc 52.4 Estimated GFR > 60 Random Glucose 102 (60-115) mg/dL Calcium 10.3 H (8.4-10.2) mg/dL Magnesium 2.1 (1.6-2.6) mg/dL Total Bilirubin 0.5 (0.0-1.0) mg/dL AST 27 (5-31) U/L ALT 45 H (0-31) U/L Alkaline Phosphatase 73 (39-117) U/L Troponin I High Sens < 2.7 (<3.5-17.0) ng/L B-Natriuretic Peptide 163 H (<100) pg/mL Total Protein 7.5 (6.5-8.0) g/dL Albumin 4.4 (3.5-5.0) g/dL Independent Interpretation I performed an independent interpretation of an: EKG, Plain X-Ray (XR/XR chest 1V IMPRESSION: Mild cardiomegaly with pulmonary vascular congestion.) and CT Scan (VTE + ) Radiology Impression Discussion of test interpretation with radiology: I have reviewed the radiologist's reading. External Record Review External record reviewed: Inpatient record, Office record, Outpatient record, Prior outpatient labs, Prior outpatient radiology and Primary care record Chronic Conditions Patient?s care impacted by: Hypertension and Other (ILD) Critical Care Time Critical Care Time Critical Care Time: Yes Total Critical Care Time: 35 Attestation: I attest to this time spent taking care of the patient, obtaining history, physical, reviewing labs, imaging, speaking to my attending Discharge Plan Discharge Clinical Impression: Atrial fibrillation, Pulmonary vascular congestion, Pulmonary embolism Patient Disposition: Admitted As Inpatient Prescriptions: No Action cholecalciferol (vitamin D3) 25 mcg (1,000 unit) capsule 25 mcg PO DAILY naproxen sodium [Aleve] 220 mg tablet 220 mg PO Q8H atenolol 25 mg tablet 50 mg PO BID prednisone 10 mg tablet 10 mg PO DAILY 30 Days Qty: 30 4RF
--- NOTE | 2022-11-30 16:02 | PHA.MEDREC ---
Pharmacy Consult ? Medication Reconciliation Pharmacy has completed the medication reconciliation. Patient reported medications. Ladonna Gotti, MagdielD
--- NOTE | 2022-11-30 16:24 | PM.IMHP ---
History of Present Illness Date of Service: 11/30/22 Attending physician on admission: Suhas Bowles Chief Complaint: sob, palpitations 81-year-old female with history right-sided renal cell carcinoma s/p ablation 06/13, interstitial lung disease and pneumonitis with chronic hypoxemic respiratory failure on 2 L supplemental O2 with exertion and and at night presented to the ED earlier today from pulmonary rehab for evaluation palpitations and shortness of breath. While at pulmonary rehab, patient was noted to be more hypoxic from baseline and hypertensive. EKG was performed which showed new atrial fibrillation, rate 95 with T-wave inversions noted in V1 and V2. She states symptoms started this morning around 07:00 with palpitations lasting about 20 minutes and dyspnea on exertion. Denies orthopnea or PND. States she had similar symptoms about 6 weeks ago. On arrival to the ED, patient hypertensive to 191/120, tachycardic to 109. Noted to be hypoxic to 88 placed on 2 L supplemental O2. Hematology labs unremarkable. Renal function baseline, electrolyte levels normal. Troponin below detectable limits, BNP 163. D-dimer 1036. Chest x-ray showing mild cardiomegaly and pulmonary vascular congestion. Chest CTA shows bilateral PE in the inferior branch of the right and left pulmonary arteries. There is also mild ground-glass attenuation seen in both lungs but no focal mass or consolidation. In the ED, given 50 mg atenolol. Denies etoh use, illicit drug use, or cigarette smoking. Denies recent travel, estrogen use, or fh clotting disorders. Review of Systems Review of Systems: General: No fevers, malaise, unintentional weight loss Cardiovascular: +palpitations. No chest pain, or leg edema Respiratory: +sob. No wheezing, cough GI: No abdominal pain, nausea, vomiting, diarrhea, constipation, melena, hematochezia : No dysuria, hematuria, increased urinary frequency, decreased urinary output MSK: No myalgia, back pain Neuro: No headaches, weakness, paresthesias Skin: No rashes or lesions [facility] Medical History Renal cell carcinoma of right kidney Chronic respiratory failure with hypoxia Pneumonitis ILD (interstitial lung disease) Social History Household Members: None Patient Tobacco Use Status: Never used Tobacco Years Smoked: 5 Meds Allergies Allergy/AdvReac Type Severity Reaction Status Date / Time latex [LATEX] Allergy Intermediate RASH Verified 09/21/22 15:20 seasonal Allergy Unknown Anaphylaxis Uncoded 09/21/22 15:20 Home Medications Medication Instructions Recorded Confirmed Last Taken Type cholecalciferol (vitamin D3) 25 25 mcg PO DAILY 10/22/21 11/30/22 Unknown History mcg (1,000 unit) capsule naproxen sodium 220 mg tablet 220 mg PO Q8H PRN Pain 10/22/21 11/30/22 Unknown History (Aleve) atenolol 25 mg tablet 50 mg PO BID 09/21/22 11/30/22 11/30/22 History prednisone 10 mg tablet 10 mg PO Q48H 11/30/22 11/30/22 11/29/22 History Physical Exam Vital Signs and Narrative: Vital Signs: Last Vital Signs Pulse 87 11/30/22 14:57 Resp 24 H 11/30/22 14:57 BP 173/103 H 11/30/22 14:57 Pulse Ox 93 11/30/22 14:57 O2 Del Method Nasal Cannula 11/30/22 14:57 O2 Flow Rate 2 11/30/22 14:57 BMI result Body Mass Index 30.3 Constitutional - Awake and Alert, No apparent distress Eyes - PERRLA, EOMI Cardiovascular - S1S2, irregularly irregular, tachycardic, No edema Respiratory - Normal lung expansion, Normal respiratory effort, No respiratory distress, scattered expiratory wheezes and bilateral crackles Gastrointestinal - NT / ND; +BS; No rebound or guarding Extremities - no calf tenderness bilaterally, no swelling Skin - Warm/Dry Neurological - Alert & oriented x3 Psychological - Appropriate affect Results Labs 11/30/22 13:16 11/30/22 13:16 Labs: Laboratory Results - last 24 hr 11/30/22 13:16 MCV 88.7 MCH 28.7 MCHC 32.4 RDW 14.8 Plt Count 191 MPV 9.1 L Immature Gran % (Auto) 0.3 Neut % (Auto) 71.5 Lymph % (Auto) 19.1 L [place] % (Auto) 6.0 Eos % (Auto) 2.6 Baso % (Auto) 0.5 Lymph # (Auto) 1.6 [place] # (Auto) 0.5 Eos # (Auto) 0.2 Baso # (Auto) 0.0 Abs Immat Gran (auto) 0.03 Absolute Neuts (auto) 6.2 Absolute Nucleated RBC 0.000 Nucleated RBC % (auto) 0.0 PT 12.2 INR 1.0 D-Dimer High Sensitivty 1036 Anion Gap 15 Estim Creat Clear Calc 52.4 Estimated GFR > 60 Random Glucose 102 Calcium 10.3 H Magnesium 2.1 Total Bilirubin 0.5 AST 27 ALT 45 H Alkaline Phosphatase 73 B-Natriuretic Peptide 163 H Total Protein 7.5 Albumin 4.4 Imaging Radiologist's Impressions: Impressions Chest X-Ray 11/30/22 13:40 IMPRESSION: Mild cardiomegaly with pulmonary vascular congestion. Chest CTA 11/30/22 14:47 IMPRESSION: Bilateral PE. Mild groundglass attenuation seen in both lungs likely nonspecific inflammatory process or COPD. No focal consolidation, mass or pulmonary nodule. Results were immediately called by phone to referring physician Meet ALTAMIRANO by phone at 3:41 PM. VTE: positive Assessment and Plan (1) Acute hypoxemic respiratory failure: Status: Acute (2) Pulmonary embolism: Status: Acute (3) Atrial fibrillation: Status: Acute Plan 81-year-old female with history right-sided renal cell carcinoma s/p ablation 06/13, interstitial lung disease and pneumonitis with chronic hypoxemic respiratory failure on 2 L supplemental O2 with exertion and and at night admitted for further management of new onset atrial fibrillation with RVR and bilateral pulmonary embolism with acute hypoxemic respiratory failure. # new onset atrial fibrillation with RVR- likely secondary to PE -EKG shows atrial fibrillation, rate 95, T-wave inversions in V1-V2, no ST depressions -rate reasonably controlled 90-100s -Trop normal, BNP minimally elevated -continue atenolol 50mg BID (home dose) -initiate therapeutic Lovenox -echocardiogram ordered -cardiac diet -cardiology consult -monitor on telemetry -Mag normal, TSH pending # bilateral pulmonary embolism with acute on chronic hypoxemic respiratory failure -DDimer >1000, CTA shows bilateral PE inferior branch pulmonary arteries -likely related to malignancy -initiate therapeutic Lovenox -continue supplemental O2 to maintain oximetry 90-92% -echocardiogram -hematology/oncology consult # right renal cell carcinoma -patient reports underwent ablation of the right kidney in 06/13. No chemo or radiation -oncology consult #ILD with pneumonitis -no acute exacerbation -2L supplemetnal at baseline for activity and at bedtime DVT prophylaxis-Lovenox DNR/DNI Patient requires inpatient stay at least 2 midnights for management of new onset atrial fibrillation with RVR and bilateral pulmonary embolism on parental anticoagulation and increased supplemental O2 from baseline requiring close monitoring to prevent cardiopulmonary decompensation as well as expert consultation Time Spent With Patient Time: Total time managing care of this patient today ____ minutes. Quality Stroke Does the patient have a stroke diagnosis?: No VTE Prior VTE?: No VTE Risk Level:: Medical - moderate - high VTE Device Contraindication: Treatment Not Indicated VTE Drug Contraindication: N/A - Med Ordered
[2022-11-30] MEDS: Enoxaparin Sodium 80 MG/0.8 ML SYRINGE 70 MG SUBCUT (16:36)
--- NOTE | 2022-11-30 19:45 | PC.NURSE ---
Assumed care of pt at 1900, pt reporting headache, tylenol given per APR. pt was given dinner tray, vital signs updated, needs met call matthews within reach. Plan of care ongoing
[2022-12-01] VITALS (7 sets, daily range): BP systolic 136–173; BP diastolic 84–104; PULSE 80–101; RESP 18–27; TEMP 36.5–37.6; O2SAT 91–95; BMI 33.7
--- NOTE | 2022-12-01 01:28 | PC.NURSE ---
Pt appears to be sleeping respirations even and unlabored with NC at 2L, resting quietly, with no apparent distress. Vital signs updated, call matthews in place, plan of care ongoing.
[2022-12-01 05:31] LABS: Anion Gap 15 (12-20); Blood Urea Nitrogen 16 mg/dL (9-16); Calcium 9.2 mg/dL (8.4-10.2); Carbon Dioxide 22 mmol/L (22-29); Chloride 107 mmol/L (96-108); Creatinine Clr Calc Pharmacy 61.7; Estimated Glomerular Filt Rate > 60; Glucose Random 90 mg/dL (60-115); Potassium 3.5 mmol/L (3.3-5.1); Sodium 140 mmol/L (135-145)
--- NOTE | 2022-12-01 06:08 | PC.NURSE ---
nurse to nurse report given to imc RN
--- NOTE | 2022-12-01 07:00 | CA_ITS ---
Transthoracic Echocardiogram Patient (Last, First, Middle): Sudha Meek E Gender: Female Date of : 1940 Age: 81 Procedure Date: 12/01/2022 Procedure Type: Transthoracic Echocardiogram Location: [facility] [place] Height: 152.4 cm Weight: 73.03 kg BSA: 1.70 m2 Heart Rate: bpm BP: 173 / 103 mmHg Relay Dispatcher: HANH/ESTUARDO Referring MD: Myah ALTAMIRANO Symptoms: new onset afib Study Quality: Adequate ECG Rhythm: Atrial Fibrillation Conclusions: - Normal left ventricular size and systolic function. There is moderately increased left ventricular wall thickness. The visually estimated ejection fraction is between 60-65%. - Normal right ventricular cavity size and systolic function. - There is mild to moderate mitral valve regurgitation. - There is mild dilatation of the ascending aorta measuring 3.50 cm. Findings Left Ventricle Normal left ventricular size and systolic function. There is moderately increased left ventricular wall thickness. The visually estimated ejection fraction is between 60-65%. There is no evidence of regional wall motion abnormalities. Diastolic function is indeterminate on the basis of available data. Right Ventricle Normal right ventricular cavity size and systolic function. Atria The left atrium is mildly dilated. The right atrium is normal in size. Aortic Valve There is a normal trileaflet aortic valve. There is mild thickening of the aortic valve. There is no aortic valve stenosis. There is trace (trivial) aortic valve regurgitation. Mitral Valve The mitral valve appears normal. There is mild to moderate mitral valve regurgitation. There is no mitral valve stenosis. Pulmonic Valve The pulmonic valve is normal. There is trace pulmonic valve regurgitation. Tricuspid Valve Normal tricuspid valve structure. There is trace tricuspid valve regurgitation. Normal right atrial pressure. There is no evidence of pulmonary hypertension. Great Vessels There is mild dilatation of the ascending aorta measuring 3.50 cm. The visualized portions of the pulmonary artery and branches are normal. Venous The inferior vena cava is normal in size and collapses greater than 50% with inspiration. Pericardium/Pleural There is no evidence of pericardial effusion. Prior Study Comparison No prior study available for comparison. Measurements 2D Linear Measurements IVSd: 1.25 0.6-0.9/0.6-1.0 cm LVIDd: 3.33 3.9-5.3/4.2-5.9 cm LVIDd Index: 1.96 2.4-3.2/2.2-3.1 cm/m2 LVIDs: 2.17 2.0-3.6 cm LVPWd: 1.24 0.7-1.1 cm Ao Root: 3.00 2.1-3.5 cm LA Diam: 4.10 2.7-3.8/3.0-4.0 cm LAIDs Index: 2.41 1.5-2.3 cm/m2 LV Mass: 166.62 67-162/88-224 g LV Mass Index: 98.01 43-95/49-115 g/m2 LVOT Diam: 1.90 3.0+(-)1.3 cm Mitral Valve MV Pk E: 1.17 MV Decel Time: 114.00 E'Lateral: 9.46 E'Medial: 5.66 E/E' Med: 20.70 E/E' Lat: 12.40 PHT: 33.00 MVA PHT: 6.67 Decel [place]: 10.25 Aortic Valve AoV Pk [place]: 1.28 AoV Mn [place]: 0.83 AoV VTI: 0.23 AoV Pk Grad: 7.00 Aov Mn Grad: 3.00 [place] Cont.VTI: 2.14 LVOT LVOT Pk [place]: 0.99 LVOT Mn [place]: 0.66 LVOT VTI: 0.17 LVOT Pk Grad: 4.00 LVOT Mn Grad: 2.00 LVOT Diam: 1.90 LVOT Area: 2.84 Diastolic Function MV Pk E: 1.17 E'Medial: 5.66 E/E' Med: 20.70 E' Laterial: 9.46 E/E' Lat: 12.40 Right Ventricle TAPSE (mm): 23.00 TVS' [place]: 12.00 Tricuspid Valve TR Pk Har[place]: 2.74 TR Pk Grad: 30.00 RA Press: 3.00 RVSP: 33.00 Great Vessels Aorta Ao Root-2D: 3.00 2.0-3.7 cm Ao Asc: 3.50 2.1-3.4 cm Pulmonary Valve PV Pk Harman: 1.02 Peak PV Grad: 4.00 Updated in Other Vendor System with Status of Final Jorge Jara MD electronically signed on 12/01/2022 7:39:49 PM with status of Final
--- NOTE | 2022-12-01 13:23 | MHC.CM.PN ---
IMM 12/01. Pt lives at home alone, self-care, and has home O2 with [employer]. Returning home is the pts goal. Pts family will transport her home. PCP: Dr. Darrell Sutherland
--- NOTE | 2022-12-01 14:01 | PM.CNCAR ---
History of Present Illness History of Present Illness Date of Service: 12/01/22 Requesting physician: Suhas Bowles Chief complaint: new onset atrial fibrillation, bilateral PE Narrative: 81-year-old female presenting for palpitations. She was diagnosed with new onset atrial fibrillation. Also had CT pulmonary angiogram which is showing bilateral PE. She has background of renal cell cancer and underwent cryoablation in May in [place].. She has been started on enoxaparin. She continues to be in atrial fibrillation but is denying any palpitations at rest. She is on atenolol 50 mg twice a day which is her home medication. In atrial fibrillation heart rates are in 90s and fairly well controlled currently. No dizziness or syncope. No chest discomfort. No bleeding concerns in the past. She was due to get repeat MRI of her kidneys in December at [facility] to follow-up on the renal cancer. [facility] Past Medical History Medical History Renal cell carcinoma of right kidney Chronic respiratory failure with hypoxia Pneumonitis ILD (interstitial lung disease) Social History Social History Household Members: None Housing: House Patient Tobacco Use Status: Never used Tobacco Years Smoked: 5 Smoked in Last 30 Days: No Use of substances other than those prescribed or required for medical reasons: No Currently Displaying Signs/Symptoms of Drug Intoxication Withdrawal: No Have you been hit, kicked, punched, or otherwise hurt by someone within the past year? If so, by whom?: No Do you feel safe in your current relationship?: Yes Is there a partner from a previous relationship who is making you feel unsafe now?: No Are you made to feel afraid or neglected: No Advance Directives: Yes Advance Directives Information Provided: No Advance Directives on File: No Advance Directives Date on File: 12/01/22 Do you have thoughts of harming others: None Do you have a plan to hurt others: No Plan Recently lost weight without trying: No Nutrition Risks: No Nutritional Risk Patient : No service: No Meds Allergies Allergy/AdvReac Type Severity Reaction Status Date / Time latex [LATEX] Allergy Intermediate RASH Verified 09/21/22 15:20 seasonal Allergy Unknown Anaphylaxis Uncoded 09/21/22 15:20 Active Medications: Current Medications Acetaminophen (Acetaminophen 325 Mg Tablet) 650 mg PO Q6H PRN PRN Reason: Pain, Mild (Pain Scale 1-3) Last Admin: 11/30/22 19:42 Dose: 650 mg Atenolol (Atenolol 50 Mg Tablet) 50 mg PO BID [facility]; Protocol Last Admin: 12/01/22 07:40 Dose: 50 mg Docusate Sodium (Docusate Sodium 100 Mg Capsule) 100 mg PO DAILY PRN PRN Reason: Constipation Enoxaparin Sodium (Enoxaparin Sodium 80 Mg/0.8 Ml Syringe) 70 mg 1 mg/kg (70 mg) SUBCUT Q12H [facility] Last Admin: 12/01/22 05:56 Dose: 70 mg Ondansetron HCl (Ondansetron Hcl 4 Mg/2 Ml Vial) 4 mg IVPUSH Q8H PRN PRN Reason: Nausea and Vomiting Prednisone (Prednisone 10 Mg Tablet) 10 mg PO Q48H [facility] Last Admin: 12/01/22 07:40 Dose: 10 mg Sodium Chloride (0.9 % Sodium Chloride Flush 3 Ml Syringe) 3 ml IVFLUSH QSHIFT [facility] Last Admin: 12/01/22 07:45 Dose: 3 ml Vitamin D (Cholecalciferol (Vitamin D3) 25 Mcg Tablet) 25 mcg PO DAILY [facility] Last Admin: 12/01/22 07:40 Dose: 25 mcg Home Medications Medication Instructions Recorded Confirmed Last Taken Type cholecalciferol (vitamin D3) 25 25 mcg PO DAILY 10/22/21 11/30/22 Unknown History mcg (1,000 unit) capsule naproxen sodium 220 mg tablet 220 mg PO Q8H PRN Pain 10/22/21 11/30/22 Unknown History (Aleve) atenolol 25 mg tablet 50 mg PO BID 09/21/22 11/30/22 11/30/22 History prednisone 10 mg tablet 10 mg PO Q48H 11/30/22 11/30/22 11/29/22 History Physical Exam Vital Signs: Vital Signs: Last Vital Signs Temp 98.1 F 12/01/22 11:04 Pulse 90 12/01/22 11:04 Resp 20 12/01/22 11:04 BP 142/90 H 12/01/22 11:04 Pulse Ox 93 12/01/22 11:04 O2 Del Method Nasal Cannula 12/01/22 11:04 O2 Flow Rate 2 12/01/22 11:04 BMI result Body Mass Index 33.7 GENERAL APPEARANCE: in no acute distress, pleasant. NECK: no carotid bruit, no jugular venous distention. SKIN: no suspicious lesions, warm and dry. HEART: no murmurs, irregular rate and rhythm. LUNGS: Crackles at bases. ABDOMEN: soft, nontender. EXTREMITIES: no edema. PERIPHERAL PULSES: equal. NEUROLOGIC: No gross deficits, AAO X 3 Objective Labs and Meds 12/01/22 04:22 12/01/22 04:22 Lab results: Laboratory Results - last 24 hr 11/30/22 12/01/22 13:16 04:22 WBC 6.9 RBC 4.57 Hgb 13.1 Hct 41.3 MCV 90.4 MCH 28.7 MCHC 31.7 RDW 14.7 Plt Count 175 MPV 10.0 Immature Gran % (Auto) 0.3 Neut % (Auto) 61.0 Lymph % (Auto) 27.5 [place] % (Auto) 6.1 Eos % (Auto) 4.4 H Baso % (Auto) 0.7 Lymph # (Auto) 1.9 [place] # (Auto) 0.4 Eos # (Auto) 0.3 Baso # (Auto) 0.1 Abs Immat Gran (auto) 0.02 Absolute Neuts (auto) 4.2 Absolute Nucleated RBC 0.000 Nucleated RBC % (auto) 0.0 Sodium 140 Potassium 3.5 Chloride 107 Carbon Dioxide 22 Anion Gap 15 BUN 16 Creatinine 0.66 Estim Creat Clear Calc 61.7 Estimated GFR > 60 Random Glucose 90 Calcium 9.2 D B-Natriuretic Peptide 163 H TSH 0.88 Imaging Radiologist's impression: Impressions Chest X-Ray 11/30/22 13:40 IMPRESSION: Mild cardiomegaly with pulmonary vascular congestion. Chest CTA 11/30/22 14:47 IMPRESSION: Bilateral PE. Mild groundglass attenuation seen in both lungs likely nonspecific inflammatory process or COPD. No focal consolidation, mass or pulmonary nodule. Results were immediately called by phone to referring physician Meet ALTAMIRANO by phone at 3:41 PM. VTE: positive Assessment and Plan (1) Pulmonary embolism: Status: Acute (2) Atrial fibrillation: Status: Acute Plan Pleasant 81 year female with interstitial lung disease and renal cell cancer for which she underwent cryoablation in [place] in May 2022. She is presenting with AFib with RVR and pulmonary embolism. On Lovenox. Can consider changing to Apixaban or leave on Lovenox (can be discussed with heme/onc). She will get MRI of kidneys in [facility] to see if cryoablation was successful. HR well controlled. Not symptomatic from Afib. We will review the echo. If HR poorly controlled then would consider adding digoxin. Would avoid cardizem specially if echo showed RV dysfunction. Thank you for allowing me to participate in the care of your patient. Please feel free to contact me if you have any questions. Time Spent With Patient Time: Total time managing care of this patient today ____ minutes. Procedures Date of Service Date of Service: 12/01/22
--- NOTE | 2022-12-01 14:31 | PM.HEMONCCN ---
Subjective - Subjective Chief complaint: Palpitations Patient: new to practice Consult date: 12/01/22 Primary Care Provider: Darrell Sutherland MD HPI - Consult Narrative Reason for consult: Bilateral pulmonary embolism Narrative: Sudha Meek is a 81 year old woman admitted to hospital with complaints of shortness of breath and palpitations, diagnosed with bilateral PE as well as new onset atrial fibrillation. She has a history of interstitial lung disease and chronic hypoxemic respiratory failure who is oxygen dependent at home. She was diagnosed with a right renal cell carcinoma and underwent evaluation was in May 2022 in [place]. She presented with 1 day history of palpitations and shortness of breath, no significant chest pain, cough, orthopnea or PND. She states she had similar symptoms about 6 weeks ago. On arrival to the ED, patient hypertensive to 191/120, tachycardic to 109. Noted to be hypoxic to 88 placed on 2 L supplemental O2. Troponin below detectable limits, BNP 163. D-dimer 1036. Chest x-ray showing mild cardiomegaly and pulmonary vascular congestion. Chest CTA shows bilateral PE in the inferior branch of the right and left pulmonary arteries. There is also mild ground-glass attenuation seen in both lungs but no focal mass or consolidation. She has been started on Lovenox 1 milligram/kilos b.i.d.. No history of smoking or recent immobilization, surgery or trauma. After ablation for renal cell carcinoma, she had abdominal MRI in summer at [facility] which was reportedly normal. No past history of thromboembolism or family history. She has a twin sister who also has interstitial fibrosis. Review of Systems - Constitutional Reports as per HPI, Denies lack of energy, Denies malaise, Denies night sweats, Denies poor appetite - Cardiovascular Reports no additional cardiovascular complaints - Respiratory Reports no additional respiratory complaints - Gastrointestinal Reports no additional gastrointestinal complaints COUNT INCLUDES THE [facility] Medical History: Medical History (Last Reviewed 12/01/22 @ 06:36 by Jeanine Ortiz RN) Chronic respiratory failure with hypoxia ILD (interstitial lung disease) Pneumonitis Renal cell carcinoma of right kidney Social History: Social History (Last Reviewed 11/30/22 @ 16:36 by EVELIA Olivo) Living Situation History: Household Members: None Housing: House Alcohol History Details: 1. How often do you have a drink containing alcohol?: a. Never AUDIT-C Alcohol total score: 0 Currently Displaying Signs/Symptoms of Alcohol Withdrawal: No Tobacco History: Patient Tobacco Use Status: Never used Tobacco Years Smoked: 5 Smoked in Last 30 Days: No Substance Use History: Use of substances other than those prescribed or required for medical reasons: No Currently Displaying Signs/Symptoms of Drug Intoxication Withdrawal: No Domestic Abuse History: Have you been hit, kicked, punched, or otherwise hurt by someone within the past year? If so, by whom?: No Do you feel safe in your current relationship?: Yes Is there a partner from a previous relationship who is making you feel unsafe now?: No Are you made to feel afraid or neglected: No Advance Directives: Advance Directives: Yes Advance Directives Information Provided: No Advance Directives on File: No Advance Directives Date on File: 12/01/22 Homicidal Assessment: Do you have thoughts of harming others: None Do you have a plan to hurt others: No Plan Nutrition Assessment: Recently lost weight without trying: No Nutrition Risks: No Nutritional Risk Patient : No Occupation Assessmet: service: No Home Medications and Allergies Current Medications: Current Medications Acetaminophen (Acetaminophen 325 Mg Tablet) 650 mg PO Q6H PRN PRN Reason: Pain, Mild (Pain Scale 1-3) Last Admin: 11/30/22 19:42 Dose: 650 mg Atenolol (Atenolol 50 Mg Tablet) 50 mg PO BID [facility]; Protocol Last Admin: 12/01/22 07:40 Dose: 50 mg Docusate Sodium (Docusate Sodium 100 Mg Capsule) 100 mg PO DAILY PRN PRN Reason: Constipation Enoxaparin Sodium (Enoxaparin Sodium 80 Mg/0.8 Ml Syringe) 70 mg 1 mg/kg (70 mg) SUBCUT Q12H [facility] Last Admin: 12/01/22 05:56 Dose: 70 mg Ondansetron HCl (Ondansetron Hcl 4 Mg/2 Ml Vial) 4 mg IVPUSH Q8H PRN PRN Reason: Nausea and Vomiting Prednisone (Prednisone 10 Mg Tablet) 10 mg PO Q48H [facility] Last Admin: 12/01/22 07:40 Dose: 10 mg Sodium Chloride (0.9 % Sodium Chloride Flush 3 Ml Syringe) 3 ml IVFLUSH QSHIFT [facility] Last Admin: 12/01/22 07:45 Dose: 3 ml Vitamin D (Cholecalciferol (Vitamin D3) 25 Mcg Tablet) 25 mcg PO DAILY [facility] Last Admin: 12/01/22 07:40 Dose: 25 mcg Home Medications Medication Instructions Recorded Confirmed Type cholecalciferol (vitamin D3) 25 25 mcg PO DAILY 10/22/21 11/30/22 History mcg (1,000 unit) capsule naproxen sodium 220 mg tablet 220 mg PO Q8H PRN Pain 10/22/21 11/30/22 History (Aleve) atenolol 25 mg tablet 50 mg PO BID 09/21/22 11/30/22 History prednisone 10 mg tablet 10 mg PO Q48H 11/30/22 11/30/22 History Allergies Allergy/AdvReac Type Severity Reaction Status Date / Time latex [LATEX] Allergy Intermediate RASH Verified 09/21/22 15:20 seasonal Allergy Unknown Anaphylaxis Uncoded 09/21/22 15:20 Physical Exam Vital signs: Vital Signs Temp 98.1 F 12/01/22 11:04 Pulse 90 12/01/22 11:04 Resp 20 12/01/22 11:04 BP 142/90 H 12/01/22 11:04 Pulse Ox 93 12/01/22 11:04 O2 Del Method Nasal Cannula 12/01/22 11:04 O2 Flow Rate 2 12/01/22 11:04 Intake & Output 11/30/22 12/01/22 12/01/22 18:59 06:59 18:59 Intake Total 1680 / 1680 Balance 1680 / 1680 Intake: Intake, Oral Amount 1680 / 1680 Other: Breakfast % Eaten 100% Lunch % Eaten 100% Number of Unmeasured Voids 1 4 Number of Bowel Movements 1 Urine Bathroom Urine Color Yellow Weight 73.3 kg 78.2 kg Weight in Grams [id number] Weight 78.2 kg - Constitutional Present: no acute distress - Routine HEENT Exam Head: Present: normal inspection Eye: Present: EOMI, PERRL - Routine Neck Exam Present: supple. Absent: lymphadenopathy - Routine Respiratory Exam Absent: accessory muscle use - Routine Cardiovascular Exam Cardiovascular: Present: S1, S2, irregular rhythm - Routine Abdominal Exam Present: soft - Routine Extremities Exam Absent: pedal edema, tenderness Hem/Onc Consult Result - Labs CBC & Chem 7: 12/01/22 04:22 12/01/22 04:22 Labs: Short CBC 12/01/22 Range/Units 04:22 WBC 6.9 (4.8-10.8) X10*3/uL Hgb 13.1 (12.0-16.0) g/dl Hct 41.3 (37.0-47.0) % Plt Count 175 (160-400) X10*3/uL [facility] 12/01/22 04:22 Sodium 140 Potassium 3.5 Chloride 107 Carbon Dioxide 22 BUN 16 Creatinine 0.66 Calcium 9.2 D Assessment and Plan Patient Active problem list reviewed?: Yes (1) Pulmonary embolism Status: Acute Assessment and plan: 1. This is a pleasant 81-year-old woman diagnosed with bilateral pulmonary emboli. She presented with chest palpitations and shortness of breath, CT angiogram revealed large filling defects in the inferior branch of right and left pulmonary arteries. Rest of imaging was unremarkable. Simultaneously, she has been diagnosed with atrial fibrillation. She has been started on Lovenox 1 milligram/kilos every 12 hours, she reports improvement in her symptoms. This appears to be spontaneous bilateral pulmonary embolism. Lower extremity examination is normal. No history of trauma, surgery or immobilization. No personal or family history of thromboembolism, she is not a smoker. She is up-to-date with mammogram and colonoscopy. She had recent abdominal MRI at [facility] and there was no evidence of recurrent malignancy. She is scheduled to go for another abdominal MRI at [facility] next month. No indication for thrombophilia testing. I discussed long-term anticoagulation as this is an unprovoked bilateral PE. She also needs to be on anticoagulation for atrial fibrillation. She can be transitioned to NAC such as Eliquis. All of the above was discussed with both patient and her daughter who was at the bedside. I thank you for this referral. - Time Spent With Patient Time Spent with Patient (in minutes): 25
--- NOTE | 2022-12-01 14:47 | P.PNIM_ITS ---
Subjective Subjective Date of Service: 12/01/22 Interval History: being followed for palpitations, patient denies chest pain, no palpitations denies shortness of breath, denies lightheadedness, no dizziness, tele monitor shows atrial fibrillation heart rate around 100, no acute events overnight. Review of Systems All other system reviewed and negative. Physical Exam 2 Vital Signs: Vital Signs: Last Vital Signs Temp 98.1 F 12/01/22 11:04 Pulse 90 12/01/22 11:04 Resp 20 12/01/22 11:04 BP 142/90 H 12/01/22 11:04 Pulse Ox 93 12/01/22 11:04 O2 Del Method Nasal Cannula 12/01/22 11:04 O2 Flow Rate 2 12/01/22 11:04 BMI result Body Mass Index 33.7 Const: Other: General awake alert x3, resting comfortably in no acute distress. Neck no JVD. CVS irregular rate rhythm, Respiratory lungs clear to auscultation, no respiratory distress, no wheeze, no rhonchi. Gastrointestinal abdomen soft, nontender, bowel sounds audible Extremities no edema. Neuro nonfocal Skin no rash psych appropriate affect Objective Data Active Medications Acetaminophen (Acetaminophen 325 Mg Tablet) 650 mg PO Q6H PRN PRN Reason: Pain, Mild (Pain Scale 1-3) Last Admin: 11/30/22 19:42 Dose: 650 mg Documented By: KEIRA Atenolol (Atenolol 50 Mg Tablet) 50 mg PO BID [facility]; Protocol Last Admin: 12/01/22 07:40 Dose: 50 mg Documented By: JOSE CRUZ Docusate Sodium (Docusate Sodium 100 Mg Capsule) 100 mg PO DAILY PRN PRN Reason: Constipation Enoxaparin Sodium (Enoxaparin Sodium 80 Mg/0.8 Ml Syringe) 70 mg 1 mg/kg (70 mg) SUBCUT Q12H [facility] Last Admin: 12/01/22 05:56 Dose: 70 mg Documented By: KEIRA Ondansetron HCl (Ondansetron Hcl 4 Mg/2 Ml Vial) 4 mg IVPUSH Q8H PRN PRN Reason: Nausea and Vomiting Prednisone (Prednisone 10 Mg Tablet) 10 mg PO Q48H [facility] Last Admin: 12/01/22 07:40 Dose: 10 mg Documented By: JOSE CRUZ Sodium Chloride (0.9 % Sodium Chloride Flush 3 Ml Syringe) 3 ml IVFLUSH QSHIFT [facility] Last Admin: 12/01/22 07:45 Dose: 3 ml Documented By: JOSE CRUZ Vitamin D (Cholecalciferol (Vitamin D3) 25 Mcg Tablet) 25 mcg PO DAILY [facility] Last Admin: 12/01/22 07:40 Dose: 25 mcg Documented By: JOSE CRUZ Labs 12/01/22 04:22 12/01/22 04:22 Labs: Laboratory Results - last 24 hr 11/30/22 12/01/22 13:16 04:22 MCV 90.4 MCH 28.7 MCHC 31.7 RDW 14.7 Plt Count 175 MPV 10.0 Immature Gran % (Auto) 0.3 Neut % (Auto) 61.0 Lymph % (Auto) 27.5 [place] % (Auto) 6.1 Eos % (Auto) 4.4 H Baso % (Auto) 0.7 Lymph # (Auto) 1.9 [place] # (Auto) 0.4 Eos # (Auto) 0.3 Baso # (Auto) 0.1 Abs Immat Gran (auto) 0.02 Absolute Neuts (auto) 4.2 Absolute Nucleated RBC 0.000 Nucleated RBC % (auto) 0.0 Anion Gap 15 Estim Creat Clear Calc 61.7 Estimated GFR > 60 Random Glucose 90 Calcium 9.2 D B-Natriuretic Peptide 163 H TSH 0.88 Assessment and Plan (1) Acute hypoxemic respiratory failure: Status: Acute (2) Pulmonary embolism: Status: Acute (3) Atrial fibrillation: Status: Acute (4) Chronic respiratory failure with hypoxia: Status: Acute Plan 81 year female with interstitial lung disease and renal cell cancer for which she underwent cryoablation in [place] in May 2022. She is presenting with AFib with RVR a new diagnosis of pulmonary embolism. 81-year-old female with history right-sided renal cell carcinoma s/p ablation 06/13, interstitial lung disease and pneumonitis with chronic hypoxemic respiratory failure on 2 L supplemental O2 with exertion and and at night admitted for further management of new onset atrial fibrillation with RVR and bilateral pulmonary embolism with acute hypoxemic respiratory failure. # new onset atrial fibrillation with RVR - remains in AFib with well controlled heart rate in 90 to 100s -Trop normal, BNP minimally elevated, normal TSH, normal magnesium -continue atenolol 50mg BID (home dose), started on Lovenox -echocardiogram and cardiology consult pending # bilateral pulmonary embolism with acute on chronic hypoxemic respiratory failure -DDimer >1000, CTA shows bilateral PE inferior branch pulmonary arteries -likely related to malignancy -on Lovenox - follow echo in Oncology consult # right renal cell carcinoma -patient reports underwent ablation of the right kidney in 06/13 in [place], being followed at [facility] #ILD with pneumonitis -no acute exacerbation, continue home steroids -2L supplemetnal at baseline for activity and at bedtime DVT prophylaxis-Lovenox DNR/DNI Patient requires inpatient stay for management of new onset atrial fibrillation with RVR and bilateral pulmonary embolism on parental anticoagulation and increased supplemental O2 from baseline requiring close monitoring to prevent cardiopulmonary decompensation as well as expert consultation. Time Spent With Patient Time: Total time managing care of this patient today ____ minutes. Quality Stroke Does the patient have a stroke diagnosis?: No VTE Prior VTE?: No VTE Risk Level:: Medical - moderate - high VTE Device Contraindication: Treatment Not Indicated VTE Drug Contraindication: N/A - Med Ordered
[2022-12-01] MEDS: Enoxaparin Sodium 80 MG/0.8 ML SYRINGE 70 MG SUBCUT (17:06)
[2022-12-01] MEDS: atenoloL 50 MG TABLET PO (19:26)
[2022-12-01] MEDS: Acetaminophen 325 MG TABLET 650 MG PO (19:26)
[2022-12-02 00:41] VITALS: TEMP 36.4
[2022-12-02 04:00] VITALS: BP 147/91; PULSE 86; RESP 16; TEMP 36.6
[2022-12-02] MEDS: Enoxaparin Sodium 80 MG/0.8 ML SYRINGE 70 MG SUBCUT (05:55)
[2022-12-02 07:19] VITALS: BP 143/91; PULSE 94; RESP 20; TEMP 36.6; O2SAT 92
[2022-12-02] MEDS: atenoloL 50 MG TABLET PO (07:56)
[2022-12-02] MEDS: Cholecalciferol (Vitamin D3) 25 MCG TABLET PO (07:56)
[2022-12-02 11:04] VITALS: BP 129/78; PULSE 66; RESP 20; TEMP 36.7; O2SAT 93
--- NOTE | 2022-12-02 11:05 | PM.PNCARD ---
Subjective Subjective Date of Service: 12/02/22 Interval history: Seen examined at bedside. Feeling good. Echocardiography results discussed with the patient. Physical Exam Vital Signs: Last Vital Signs Temp 97.9 F 12/02/22 07:19 Pulse 94 12/02/22 07:19 Resp 20 12/02/22 07:19 BP 143/91 H 12/02/22 07:19 Pulse Ox 92 12/02/22 07:19 O2 Del Method Nasal Cannula 12/02/22 07:19 O2 Flow Rate 2 12/02/22 07:19 BMI result Body Mass Index 33.7 GENERAL APPEARANCE: in no acute distress, pleasant. NECK: no carotid bruit, no jugular venous distention. SKIN: no suspicious lesions, warm and dry. HEART: no murmurs, irregular rate and rhythm. LUNGS: Crackles at bases. ABDOMEN: soft, nontender. EXTREMITIES: no edema. PERIPHERAL PULSES: equal. NEUROLOGIC: No gross deficits, AAO X 3 Objective Labs and Meds 12/01/22 04:22 12/01/22 04:22 Progress Note: A&P Assessment and plan (1) Pulmonary embolism: Status: Acute (2) Atrial fibrillation: Status: Acute Plan 81-year-old female with background of interstitial lung disease and renal cell cancer status post cryoablation in May 2022 who presented with palpitations and was diagnosed with AFib with RVR. She was also diagnosed with bilateral pulmonary emboli. AFib likely triggered by the pulmonary emboli at this stage. She is on anticoagulation and will need anticoagulation long-term. She will be getting a MRI at [facility] in to reassess the renal cell cancer post cryoablation. Heart rates are reasonably controlled. Blood pressure is elevated. I think she can have titration of atenolol 200 mg in the morning and continue the 50 in the afternoon. We will arrange follow-up in our office. Thank you for allowing me to participate in the care of your patient. Please feel free to contact me if you have any questions. Time Spent With Patient Time: Total time managing care of this patient today ____ minutes. Progress Note: Quality Stroke Does the patient have a stroke diagnosis?: No Procedures Date of Service Date of Service: 12/02/22
--- NOTE | 2022-12-02 12:04 | PM.DS ---
DS: Providers Provider Date of Service: 12/02/22 Date of admission: 11/30/22 16:16 Primary care physician: Darrell Sutherland MD Consults: 11/30/22 16:20 Consult to Cardiology Routine Consulting Provider: [facility] Cardi[facility] Reason for consultation: new onset afib with rvr Consult to Hematology / Oncology Routine Consulting Provider: Laurie Barnett Reason for consultation: bilateral PE, renal cell CA DS: Diagnosis Discharge Diagnosis (1) Pulmonary embolism: Status: Acute (2) Atrial fibrillation: Status: Acute DS: Summary Hospital Course Hospital Course: Admission H PI, CC: sob, palpitations 81-year-old female with history right-sided renal cell carcinoma s/p ablation 06/13, interstitial lung disease and pneumonitis with chronic hypoxemic respiratory failure on 2 L supplemental O2 with exertion and and at night presented to the ED earlier today from pulmonary rehab for evaluation palpitations and shortness of breath. While at pulmonary rehab, patient was noted to be more hypoxic from baseline and hypertensive. EKG was performed which showed new atrial fibrillation, rate 95 with T-wave inversions noted in V1 and V2. She states symptoms started this morning around 07:00 with palpitations lasting about 20 minutes and dyspnea on exertion. Denies orthopnea or PND. States she had similar symptoms about 6 weeks ago. On arrival to the ED, patient hypertensive to 191/120, tachycardic to 109. Noted to be hypoxic to 88 placed on 2 L supplemental O2. Hematology labs unremarkable. Renal function baseline, electrolyte levels normal. Troponin below detectable limits, BNP 163. D-dimer 1036. Chest x-ray showing mild cardiomegaly and pulmonary vascular congestion. Chest CTA shows bilateral PE in the inferior branch of the right and left pulmonary arteries. There is also mild ground-glass attenuation seen in both lungs but no focal mass or consolidation. In the ED, given 50 mg atenolol. Denies etoh use, illicit drug use, or cigarette smoking. Denies recent travel, estrogen use, or fh clotting disorders. Hospial course: The patient presented with shortness of breath and palpitaions and work up revealed new onset of AFIB, and unproveked bilateral PE. Atrial fibrilation is controlled with Atenolol. She was startedon lovenox for both AFIB and PE. She was evaluated by cardiology for afib and oncology for PE, she needs no further work up for PE as she uptodate on maligancy screening. Oncology recommends transitioning to Eliquis at this point, as for hypoxia this seems to have improved, she is on oxygen at home which she will continue. Echo showed EF of 60 Time Spent with Patient Time attestation: Total time managing care of this patient today ____ minutes. Discharge coordination time: Greater than 30 minutes Quality: Safe Use of Opioids Does Pt have an Active Cancer Diagnosis on the Problem List?: No Quality: Stroke Does the patient have a stroke diagnosis?: No Physical Exam Vital Signs: Vital Signs: Last Vital Signs Temp 98.1 F 12/02/22 11:04 Pulse 66 12/02/22 11:04 Resp 20 12/02/22 11:04 BP 129/78 12/02/22 11:04 Pulse Ox 93 12/02/22 11:04 O2 Del Method Nasal Cannula 12/02/22 11:04 O2 Flow Rate 2 12/02/22 11:04 BMI result Body Mass Index 33.7 Discharge Plan Discharge Anticipated Discharge Date/Time: 12/02/22 12:04 Patient Disposition: Home, Self-Care Discharge Diagnosis: PE, AFIB Referrals: Darrell Sutherland MD [Primary Care Provider] - 1 Week Discharge Medications: New Eliquis DVT-PE Treat 30D Start 5 mg (74 tabs) tablets,dose pack 5 - 10 mg PO BID Qty: 74 0RF Rx Instructions: Take 2 tabs (10 mg) twice daily for 7 days (14 doses), then 1 tab (5 mg) twice daily after that Continued prednisone 10 mg tablet 10 mg PO Q48H cholecalciferol (vitamin D3) 25 mcg (1,000 unit) capsule 25 mcg PO DAILY naproxen sodium [Aleve] 220 mg tablet 220 mg PO Q8H PRN (Reason: Pain) atenolol 25 mg tablet 50 mg PO BID Discharge Orders: Discharge Order (Routine); Ordered 12/02/22 Ordered By: Silvano Rodriguez Diet: Advance to usual diet Activity on Discharge: As tolerated Stand Alone Forms: Patient Portal Discharge page Care Plan Goals: recovery from blood clot and control of atrial fibrilation Health Concerns: blood clots in lungs Atrial fibrilation Hypoxia Plan of Treatment: Take Eliquis as directed to treat blood clos and to prevent stroke Assessment: as above Discharge Date/Time: 12/02/22 15:16
--- NOTE | 2022-12-02 14:25 | MHC.CM.PN ---
Pt medically cleared for D/C home self-care. Pts daughter to transport her home.
== END 2022-12-02 15:16 | disposition home or self-care (01) | DRG 175 ==
LOC: HO.ED 15:58 → HO.EDOVER 16:33 → HO.IMC 12-01 05:58
PROVIDERS: Admitting Provider Physician Assistant; Emergency Provider Student in an Organized Health Care Education/Training Program; PCP Internal Medicine; Visit Provider Internal Medicine
DX: I26.99 Other pulmonary embolism without acute cor pulmonale (principal); J96.21 Acute and chronic respiratory failure with hypoxia; C64.1 Malignant neoplasm of right kidney, except renal pelvis; Z66 Do not resuscitate; I48.91 Unspecified atrial fibrillation; Z91.040 Latex allergy status; Z79.52 Long term (current) use of systemic steroids; Z79.899 Other long term (current) drug therapy
CPT/HCPCS: 36415; 71045; 71275; 80048; 80053; 83735; 83880; 84443; 84484; 85025; 85379; 85610; 93005; 93306; 99285; J1650; Q9967

== ENCOUNTER 2022-11-30 16:16 | Outpatient (BNV) | payer MEDICARE, SELFPAY | END 2022-12-01 07:00 | PROVIDERS: Admitting Provider Physician Assistant; Emergency Provider Student in an Organized Health Care Education/Training Program; PCP Internal Medicine; Visit Provider Internal Medicine Cardiovascular Disease | DX: I34.0 Nonrheumatic mitral (valve) insufficiency (principal); I48.91 Unspecified atrial fibrillation | CPT/HCPCS: 93306 ==

== ENCOUNTER → 2022-11-30 16:16 | Outpatient (BNV) | payer MEDICARE, SELFPAY | PROVIDERS: Admitting Provider Physician Assistant; Emergency Provider Student in an Organized Health Care Education/Training Program; PCP Internal Medicine; Visit Provider Internal Medicine | DX: I26.99 Other pulmonary embolism without acute cor pulmonale (principal); I48.91 Unspecified atrial fibrillation | CPT/HCPCS: 99222 ==

== ENCOUNTER → 2022-11-30 16:16 | Outpatient (BNV) | payer MEDICARE, SELFPAY | PROVIDERS: Admitting Provider Physician Assistant; Emergency Provider Student in an Organized Health Care Education/Training Program; PCP Internal Medicine; Visit Provider Internal Medicine Cardiovascular Disease | DX: I26.99 Other pulmonary embolism without acute cor pulmonale (principal); I48.91 Unspecified atrial fibrillation | CPT/HCPCS: 99223; 99232 ==

== ENCOUNTER → 2022-11-30 16:16 | Outpatient (BNV) | payer MEDICARE, SELFPAY | PROVIDERS: Admitting Provider Physician Assistant; Emergency Provider Student in an Organized Health Care Education/Training Program; PCP Internal Medicine; Visit Provider Physician Assistant | DX: I26.99 Other pulmonary embolism without acute cor pulmonale (principal); I48.91 Unspecified atrial fibrillation | CPT/HCPCS: 99223; 99233; 99239 ==

== ENCOUNTER 2022-12-23 09:23 | Outpatient (AMB) | payer MEDICARE, SELFPAY ==
[2022-12-23 09:31] VITALS: BP 142/90; PULSE 86; O2SAT 93; BMI 30.9
--- NOTE | 2022-12-23 09:31 | A.OFFVIS_ITS ---
Intake Vital Signs 12/23/22 09:31 Height 5 ft Weight 158 lb BMI 30.9 BP 142/90 H Blood Pressure Location Rt brachial Position Sitting Pulse 86 Pulse Source Doppler Pulse Oximetry (%) 93 Oxygen Delivery Method Room Air Intake Visit Reasons: COPD Allergies latex [LATEX] Allergy (Intermediate, Verified 12/23/22 09:33) RASH seasonal Allergy (Unknown, Uncoded 09/21/22 15:20) Anaphylaxis HPI HPI Comments History of Present Illness Details The patient is a 82 year woman who was referred to Pulmonary to evaluate abnormal CT scan of the chest. The patient states that she has been feeling otherwise well. Denies any significant shortness of breath or cough or any chest discomfort. However, she does state that [facility] and she does not do a lot of walking. She went to see her primary care doctor who checked her pulse oximeter and was noted to be low. Therefore she had additional imaging studies including a CT scan of the chest that was found to be abnormal. I did personally viewed the CT scan demonstrating areas of mosaic pattern is of ground-glass opacities and also some reticular changes primarily in the lingula. The patient denies any significant exposure to any fumes or toxins. Denies any hobbies with any exposures to organic or inorganic dusts. She denies any exposure to any farm animals or farm or hay. She does not have any pets. She denies any mold in the household. The interesting part of the story is that the patient has a identical twin who lives in [place]. At the same time that she was undergoing a CT scan of the chest for further evaluation of underlying interstitial lung disease the patient is identical sister was also going to the same process. She is also going to see a specialist. The details of that evaluation are not available at this time. She denies any significant rashes or joint pains or muscle discomfort or muscle weakness. During the office visit we did go for 6 minute walk test. The patient did desaturate down to 88%. She had a dyspnea score of 3/10 and did go up to 4-10 when she was a little more hypoxic. We did rest for a minute and her oxygen improved to the low 90s. The patient did qualify for oxygen but she does not 1 at this time. 12/03/2021 the patient is here for a pulmonary follow-up visit. She is here with her sister. She did take the prednisone. The prednisone made her feel better although did not really help her breathing symptoms. She really denies any significant dyspnea on exertion. She walks regularly and also uses a recumbent bike and denies any significant shortness of breath. We did review her blood work which was relatively negative except for a positive RD with the very low titer of 01:40. There is no real history of connective tissue conditions in the family. There is a history pulmonary fibrosis. Both her mother and also her sister that is being evaluated at this time. Her last CT scan did demonstrate reticular changes in addition to ground-glass opacities. 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 During the visit the patient did have evidence of bilateral crackles and her 6 minutes walk test she desaturated down to about 86%. Her dyspnea score was 5/10 during. based on that explained to the patient that she needs to start oxygen supplementation with activity. She is a bit reluctant but she is willing to try for now. Will plan to repeat the CT scan and then follow up with a painful to see you if there is no significant progression of the pulmonary fibrosis. With talk about considering all to have a biopsy although patient is at this point reluctant to do so. Would not be unreasonable to keep the patient on small dose of prednisone for that reason. Indeed she has worsening fibrotic changes using wanted fibrotic agent would also be an option. 01/12/2022 the patient is here with her daughter for pulmonary follow-up visit. She has been on the 10 mg of prednisone. She is concerned because of the adverse effects of the medication and affecting her sleep. We did keep her on the prednisone in view of the elevated RD and also the elevation in the eosinophils which may manifest with an interstitial process. Specially since she did have some areas of ground-glass opacities suggesting pneumonitis. The patient however denied a see any significant improvement or difference. She did have a repeat CT scan of the chest and we personally reviewed that together. We also compared to her last CT scan that she had several months back. Appears to be some interval increase in the degree of reticulations and pulmonary fibrosis primarily on the left lung more than the right. She still has areas of ground-glass opacities in addition to mosaic pattern. No clear etiology for the interstitial lung disease based on the blood work. The patient is not interested in pursuing any invasive diagnostic interventions such as biopsies. Clinically the patient is doing well and she denies any respiratory symptoms at all. All this came about because she was noted to have an abnormal CT scan when she was referred to Pulmonary. She did have 2 6 minutes walk test both that were consistent with hypoxia qualify for oxygen. The patient also had an overnight oximetry demonstrating significant hypoxia while sleeping at least for close to 3 hours for she spent below 88%. Therefore the patient needs to continue using the oxygen with activity and also at nighttime while sleeping. She is adamant that she has wants to get an [employer] portable oxygen concentrator. Will go ahead and fill out some paperwork in order for her to receive that. the patient is wondering if she is going to have to stay on the oxygen. I did recommend that she continue to use it for now and we will retest her once she returns in . Patient is going to be weaning off the prednisone at this time. And the patient is not interested in any antifibrotic therapy at this time. Based on her clinical presentation during the next visit we can discuss further anti fibrotic therapy if she would like. Patient does have a lot of questions about her condition and the fact that she is fairly asymptomatic. The fact that her 20 sister also found to have some interstitial lung changes which she does not require oxygen and she is questioning the whole process. I can only tolerate that we have tested her multiple times and all times have demonstrated evidence of hypoxia even on the day of presentation the patient is stands that using the oxygen will help her with her organ function including heart brain and other end-organ functions. Her her daughter was wondering about a diagnosis next [place] to her for now based on the fact that there is some progression the possibility of idiopathic pulmonary fibrosis needs to be in differential. Explained to the patient and the daughter that with the idiopathic pulmonary fibrosis the fibrosis is progressive. Therefore, will continue to monitor for any progression of disease. 05/06/2022 the patient is here for a pulm onary preoperative evaluation. Overall the patient has been doing about the same from a respiratory status. She continues use the oxygen with activity and sleep. She denies any worsening shortness breath or any new respiratory complaints. She denies any evidence of any active connective tissue disease. She has been off all corticosteroid therapy. She was found to have a renal mass. Concerning for malignancy. Now after being evaluated by Urology see felt that she requires full nephrectomy. Because of her underlying respiratory disease stable also recommending ablation. We did review her spirometry also her PFTs from last year in addition to her 6 minutes walk test. Based on this the patient does have increased risk for perioperative pulmonary complications. However, she is medically optimize any condition is not worsening. Therefore, I do believe that she will tolerate general anesthesia and will tolerate her surgery. She will have increased risks including further hypoxia in addition to risk for pneumonia and atelectasis. Currently she is medically optimized from a pulmonary standpoint. She does not need any bronchodilator therapy. She is using her oxygen effectively. After she recovers from her surgery will reassess her underlying interstitial lung disease with a repeat CT scan and PFTs. At that point we can decide if there is any evidence of any progression to consider small dose steroids versus antifibrotic therapies. 09/21/2022 the patient is here for pulmonary follow-up visit. She recovering well from her surgery. She did have increased shortness of breath after surgery. She did follow-up in the office and was reassuring that everything was okay. The patient has been using the oxygen a little bit more often specially after surgery. she was having issues with high blood pressure she was started on a new blood pressure medication. After the medication she noticed that oxygen actually dropped to 84% which became very concerning for her. Therefore she stopped that medicine which was amlodipine. Seems that her blood pressure is better at this time. The patient also underwent a CT scan of the chest which I personally reviewed with her and her daughter. It appears some slight increase in the reticular changes primarily in the left side. There is also evidence of ground-glass opacities suggestion a component of inflammation or likely subtle scarring. Patient does have a history of slightly elevated connective tissue disease laboratory suggesting the possibility of connective tissue disease related pulmonary fibrosis. She had been on prednisone before and she did tolerated fairly well. She is willing to try smaller dose to see if she can tolerated and try to minimize progression of the scarring. Another option is to consider antifibrotic agent specially with slight worsening of disease. She is going to consider this as well. Will go ahead and start her on therapy with prednisone 10 mg daily and she is going to taper down to the lowest most effective dose which I hope is going to be 10 mg every other day. She is going to monitor closely her oxygen supplementation. Also to note that she does have a twin with very similar condition and she is also now on a small dose of prednisone. She is reassured I am also reassured that the amount of progression appears to be fairly minimal in a year's time. We did talk about pulmonary rehabilitation. The patient would really benefit from rehabilitation at this time specially now that she is recovering from her renal cell cancer surgery. 12/23/2022 the patient is here for a pulm onary follow-up visit. Apparently she was hospitalized earlier this month after developing significant tachycardia while at pulmonary rehab. She was referred down to the [facility] ER where she was diagnosed with atrial fibrillation and also had a CTA demonstrating pulmonary emboli. Therefore the patient was admitted to the hospital. She was evaluated by Cardiology. She has been on Eliquis since that hospitalizations. Her oxygen requirements are about the same. I did review her CT scan of the chest. She does have significant mosaic pattern a little bit more than before. In addition to that the pulmonary emboli noted right more than left. The patient also has a nodular density measuring around a cm in the right upper lobe area. The patient is also scheduled to undergo and MRI coming up for history of renal cancer. She continues on the prednisone every other day. At this point will continue with that does specially since she is concerned about the potential adverse effects of prednisone. she continues in atrial fibrillation but she is rate controlled. At this point the patient will continue with the Eliquis and her respiratory therapy. The patient will undergo a repeat CTA in 3 months' time to assess the resolution of the clots in addition to that to follow-up with the 1 cm subsolid nodular density in the right upper lobe. FOR[facility]LY [facility], [facility] Medical History (Updated 12/23/22 @ 18:51 by Travis Monge MD) Pulmonary nodule Renal cell cancer Renal cell carcinoma of right kidney Chronic respiratory failure with hypoxia Pneumonitis ILD (interstitial lung disease) Social History Household Members: None Housing: House Patient Tobacco Use Status: Never used Tobacco Years Smoked: 5 Advance Directives Date on File: 12/01/22 service: No Review of Systems Const Denies fever(s) and Denies night sweats Eyes Denies change in vision ENT Denies dizziness Card Denies chest pain, Reports palpitations, Denies dyspnea and Reports dyspnea on exertion Resp Denies chest congestion, Denies cough, Denies dyspnea, Reports dyspnea on exertion and Denies wheezing GI Reports no additional complaints Reports as per HPI Musc Reports no additional complaints Skin/Breast Denies rash Neuro Reports no additional complaints and Denies dizziness Endo Reports palpitations Aller/Immun Denies wheezing Physical Exam Vital Signs: Last Vital Signs Pulse 86 12/23/22 09:31 BP 142/90 H 12/23/22 09:31 Pulse Ox 93 12/23/22 09:31 Oxygen Delivery Method Room Air 12/23/22 09:31 BMI result Body Mass Index 30.9 Const General: comfortable HEENT Head: Yes normal to inspection Neck Neck: Yes supple Chest Chest palpation & inspection: normal inspection of the chest Resp Effort & Inspection: normal respiratory effort Auscultation: rales bilateral in the mid lung sharp, rhonchi and diminished lung sounds Cardio Rate: regular rate Rhythm: abnormal rhythm Heart sounds: S1 normal heart sound present and S2 normal heart sound present GI Auscultation: normal bowel sounds General: Yes no CVA tenderness Back/Spine/Pelvis Back: no CVA tenderness Skin General skin exam: no rashes or lesions noted Extrem General: Yes no clubbing, cyanosis or edema Results Reviewed Results Reviewed: personally reviewed CTA with ILD, PE and RUL nodule, reviewed ECHO and labs Assessment & Plan Assessment & Plan (1) Pneumonitis: Code(s): J18.9 - Pneumonia, unspecified organism (2) ILD (interstitial lung disease): Code(s): J84.9 - Interstitial pulmonary disease, unspecified (3) Chronic respiratory failure with hypoxia: Code(s): J96.11 - Chronic respiratory failure with hypoxia (4) Pulmonary embolism: Code(s): I26.99 - Other pulmonary embolism without acute cor pulmonale Qualifiers: Pulmonary embolism type: multiple subsegmental (without acute cor pulmonale) Qualified Code(s): I26.94 - Multiple subsegmental pulmonary emboli without acute cor pulmonale (5) Atrial fibrillation: Code(s): I48.91 - Unspecified atrial fibrillation Qualifiers: Atrial fibrillation type: persistent (not longstanding) Qualified Code(s): I48.19 - Other persistent atrial fibrillation (6) Renal cell cancer: Code(s): C64.9 - Malignant neoplasm of unspecified kidney, except renal pelvis Qualifiers: Laterality: unspecified laterality Qualified Code(s): C64.9 - Malignant neoplasm of unspecified kidney, except renal pelvis (7) Pulmonary nodule: Code(s): R91.1 - Solitary pulmonary nodule Plan Continue oxygen 2L pulse/cont with activity and 2L with sleep. continue Prednisone restart pulmonary rehab after Thanksgiving continue Eliquis, likely life long consider anti fibrotic agents (OFEV) Repeat CTA in 3 months F/U 3-4 months Orders: Orders CT angio chest PE protocol 3 Months I26.99 - Other pulmonary embolism without acute cor pulmonale Coding Level of Care Code Est Pt Level 5 (13879) Diagnoses Pneumonitis J18.9 ILD (interstitial lung disease) J84.9 Chronic respiratory failure with hypoxia J96.11 Multiple subsegmental pulmonary emboli without acute cor pulmonale I26.94 Pulmonary embolism type: multiple subsegmental (without acute cor pulmonale) Persistent atrial fibrillation I48.19 Atrial fibrillation type: persistent (not longstanding) Renal cell carcinoma, unspecified laterality C64.9 Laterality: unspecified laterality Pulmonary nodule R91.1 Time Spent (min) 35
== END 2022-12-23 09:55 | disposition home or self-care (01) ==
PROVIDERS: PCP Internal Medicine; Visit Provider Hospitalist
DX: J84.9 Interstitial pulmonary disease, unspecified (principal); J96.11 Chronic respiratory failure with hypoxia; I26.94 Multiple subsegmental thrombotic pulmonary emboli without acute cor pulmonale; R91.1 Solitary pulmonary nodule; I48.19 Other persistent atrial fibrillation; C64.9 Malignant neoplasm of unspecified kidney, except renal pelvis
CPT/HCPCS: 99214

== ENCOUNTER → 2022-12-23 09:23 | Outpatient (BNVA) | payer MEDICARE, SELFPAY | PROVIDERS: PCP Internal Medicine; Visit Provider Hospitalist | DX: I48.19 Other persistent atrial fibrillation (principal); R00.2 Palpitations; I26.99 Other pulmonary embolism without acute cor pulmonale; J96.11 Chronic respiratory failure with hypoxia; J98.4 Other disorders of lung; R91.1 Solitary pulmonary nodule; C64.1 Malignant neoplasm of right kidney, except renal pelvis; Z79.01 Long term (current) use of anticoagulants; Z99.81 Dependence on supplemental oxygen; Z79.52 Long term (current) use of systemic steroids | CPT/HCPCS: 93005; 99212 ==

== ENCOUNTER 2022-12-23 14:17 | Outpatient (AMB) | payer MEDICARE, SELFPAY ==
[2022-12-23 14:36] VITALS: BP 134/78; PULSE 109; BMI 31.0
--- NOTE | 2022-12-23 14:36 | MHC.OFFVIS ---
Intake Vital Signs 12/23/22 14:36 Height 5 ft Weight 158 lb 11.725 oz BMI 31.0 BP 134/78 Blood Pressure Location Lt brachial Position Sitting Pulse 109 H Intake Visit Reasons: [facility] [place] [place] (req Dr. ryan) Intake Note: [facility] follow-up Instructional Technology Specialist Required: No Allergies latex [LATEX] Allergy (Intermediate, Verified 12/23/22 09:33) RASH seasonal Allergy (Unknown, Uncoded 09/21/22 15:20) Anaphylaxis Medication List - Last Reconciled 12/23/22 by Rob Ryan MD apixaban (Eliquis DVT-PE Treat 30D Start) 5 - 10 mg (1 - 2 x 5 mg (74 tabs)) PO BID atenolol 75 mg PO BID cholecalciferol (vitamin D3) 25 mcg PO DAILY prednisone 10 mg PO Q48H HPI HPI Comments History of Present Illness Details Sudha comes for follow-up. Recently admitted to the hospital with palpitation noted to be new onset atrial fibrillation also diagnose bilateral pulmonary embolism. Increase atenolol to 75 mg b.i.d. and started on oral anticoagulation Eliquis which is about 3 and half weeks. She still notices symptoms of palpitation although there are not very significantly affecting her lifestyle. Denies any worsening shortness of breath, orthopnea, PND. Uses oxygen at nighttime for interstitial lung disease. Comes for follow-up. COUNT INCLUDES THE [facility] Medical History Renal cell carcinoma of right kidney Chronic respiratory failure with hypoxia Pneumonitis ILD (interstitial lung disease) Social History Household Members: None Housing: House Patient Tobacco Use Status: Never used Tobacco Years Smoked: 5 Advance Directives Date on File: 12/01/22 service: No Review of Systems Const Denies chills, Denies daytime sleepiness, Denies fatigue, Denies fever(s), Denies frequent falls, Denies poor appetite, Denies snoring, Denies stops breathing during sleep, Denies weakness, Denies weight gain and Denies weight loss Eyes Denies loss of vision ENT Denies dizziness and Denies hearing loss Card Denies chest pain, Denies claudication, Denies leg edema, Denies lightheadedness, Denies palpitations, Denies dyspnea, Denies dyspnea on exertion and Denies orthopnea Resp Denies cough, Denies excessive phlegm production, Denies dyspnea, Denies dyspnea on exertion, Denies snoring and Denies wheezing GI Denies abdominal pain, Denies hematochezia, Denies change in bowel habits, Denies nausea and Denies vomiting Denies urinary frequency and Denies dysuria Musc Denies arthralgias, Denies muscle weakness, Denies numbness and Denies other (frequent falls) Skin/Breast Denies nail changes and Denies rash Neuro Denies Abnormal speech present, Denies dizziness, Denies frequent falls, Denies loss of vision, Denies memory loss, Denies numbness and Denies weakness Psych Denies depression and Denies memory loss Endo Denies fatigue and Denies palpitations Aram/Lymph Reports easy bruising and Reports other (anemia) Aller/Immun Denies wheezing Physical Exam Vital Signs: Last Vital Signs Pulse 109 H 12/23/22 14:36 BP 134/78 12/23/22 14:36 BMI result Body Mass Index 31.0 Const General: cooperative, comfortable, no acute distress, alert, awake and well groomed Nutritional Appearance: overweight Orientation/consciousness: patient oriented x3 Limitations: no limitations Neck Neck: Yes trachea midline, Yes supple and Yes no JVD Resp Effort & Inspection: normal respiratory effort Auscultation: crackles (Coarse) bilateral at the base Cardio Jugular venous distension: no JVD Rate: tachycardic Rhythm: abnormal rhythm irregularly irregular Heart sounds: S1 normal heart sound present, S2 normal heart sound present, no click, no gallops, no murmurs and no rubs GI Auscultation: normal bowel sounds Skin General skin exam: no rashes or lesions noted and ecchymosis Neuro General: patient oriented x3 and no focal motor deficits Speech: No Abnormal speech present Extrem General: Yes no clubbing, cyanosis or edema Office Procedures EKG Details: EKG shows atrial fibrillation slightly rapid ventricular response [address] changes 35013-[id number], Complete Assessment & Plan Assessment & Plan (1) Atrial fibrillation: Code(s): I48.91 - Unspecified atrial fibrillation Plan: Persistent difficulty good rate control atrial fibrillation this elderly woman with underlying pulmonary embolism. Patient's echocardiogram done recently does not show any significant right-sided pathology with preserved LV ejection fraction. She is minimally symptomatic. Her left atrium is mildly dilated. She has no signs or symptoms of heart failure. With a very long discussion about rhythm control versus rate control approach. Most recent data suggest to pursue rhythm control approach as the 1st line approach in new onset atrial fibrillation. We discussed about this. Given her spontaneous onset atrial fibrillation possibly triggered by pulmonary embolism and risk factors of mild left atrial enlargement will most likely require antiarrhythmic drug support. Will start on Multaq 400 mg b.i.d. 2 days prior to proposed synchronized cardioversion. We discussed about the process of synchronized cardioversion in details including risk, benefits, alternatives. She wants to think about and discussed with the family which is appropriate. Once she starts Multaq her atenolol should be reduced to 50 mg b.i.d.. Instructions were provided. Continue full oral anticoagulation with Eliquis 5 mg b.i.d.. Will most likely schedule cardioversion next week after more than 4 weeks of oral anticoagulation therapy. Continue oxygen supplementation therapy at nighttime. Will follow up in the clinic after cardioversion. Medications: New dronedarone (Multaq) must administer with a meal/food. Start 2 days prior to the procedure date of synchronized cardioversion 400 mg PO BID 60 tabs 2RF Changed From atenolol 75 mg PO BID To atenolol 50 mg PO BID Coding Level of Care Code Est Pt Level 4 (51364) Diagnoses Atrial fibrillation I48.91 CPT Codes EKG - CPT: 61160-[id number], Complete ([id number])
== END 2022-12-23 15:17 | disposition home or self-care (01) ==
PROVIDERS: PCP Internal Medicine; Visit Provider Internal Medicine Cardiovascular Disease
DX: I48.91 Unspecified atrial fibrillation (principal)
CPT/HCPCS: 93010; 99214

== ENCOUNTER 2022-12-29 09:22 | Day surgery (SDC) | payer MEDICARE, SELFPAY ==
--- NOTE | 2022-12-29 08:41 | MHC.SHP ---
Pre-Procedural Eval Section A Date of Service: 12/29/22 The patient is an INPATIENT: No Changes since office visit: Yes Patient answered all questions; No Cold of Flu in the past 2 weeks, No New Medical Problems and No Changes in Medication The History & Physical has been completed within 30 days and I have reviewed it.: Yes Section B Chief Complaint: Unspecified atrial fibrillation Allergies: Allergies Allergy/AdvReac Type Severity Reaction Status Date / Time latex [LATEX] Allergy Intermediate RASH Verified 12/23/22 09:33 seasonal Allergy Unknown Anaphylaxis Uncoded 09/21/22 15:20 Plan I have reviewed the history and physical and performed a pertinent physical examination on my patient. No changes have occurred unless specified. Time Spent With Patient Time: Total time managing care of this patient today ____ minutes.
[2022-12-29 10:15] VITALS: BP 177/105; PULSE 90; RESP 18; TEMP 36.3; O2SAT 91
--- NOTE | 2022-12-29 10:35 | P.CONAN_ITS ---
[facility] Active Problems Active Problems: All Active Problems (Updated 12/29/22 @ 10:02 by Trang Rick RN) Pulmonary embolism (Acute) Atrial fibrillation (Acute) Pulmonary nodule (Acute) Renal cell cancer (Acute) Pneumonitis (Acute) ILD (interstitial lung disease) (Acute) Past Medical History Medical History (Updated 12/29/22 @ 10:02 by Trang Rick RN) History of kidney disease Pulmonary nodule Renal cell cancer Renal cell carcinoma of right kidney Chronic respiratory failure with hypoxia Pneumonitis ILD (interstitial lung disease) Family History Family history of problems with anesthesia: No Surgical History Surgical History (Updated 12/29/22 @ 10:02 by Trang Rick RN) History of History of cholecystectomy History of Problems with Anesthesia: No Social History Social History Household Members: None Housing: House Patient Tobacco Use Status: Never used Tobacco Years Smoked: 5 Use of substances other than those prescribed or required for medical reasons: No Are you DNR?: Yes Advance Directives: No Advance Directives Information Provided: Yes Advance Directives Date on File: 12/01/22 service: No Meds Allergies Allergy/AdvReac Type Severity Reaction Status Date / Time latex [LATEX] Allergy Intermediate RASH Verified 12/23/22 09:33 seasonal Allergy Unknown Anaphylaxis Uncoded 09/21/22 15:20 Active Medications: Current Medications Sodium Chloride (0.9 % Sodium Chloride Flush 3 Ml Syringe) 3 ml IVFLUSH [facility] Medications Medication Instructions Recorded Confirmed Last Taken Type cholecalciferol (vitamin D3) 25 25 mcg PO DAILY 10/22/21 12/29/22 Unknown History mcg (1,000 unit) capsule prednisone 10 mg tablet 10 mg PO Q48H 11/30/22 12/29/22 12/27/22 History atenolol 25 mg tablet 50 mg PO BID 12/23/22 12/29/22 12/29/22 History Exam Exam Date and Time: December 29, 2022 1035 Height,Weight and Vital Signs: Height 5 ft 1 in Weight 72 kg Last Vital Signs Temp 97.4 F 12/29/22 10:15 Pulse 90 12/29/22 10:15 Resp 18 12/29/22 10:15 BP 177/105 H 12/29/22 10:15 Pulse Ox 91 L 12/29/22 10:15 O2 Del Method Room Air 12/29/22 10:15 Airway Mallampati Class: II TM Dist: >3cm Neck ROM: Full Heart: rrr Lungs: cta Assessment and Plan Assessment Anesthesia Assessment: Anesthesia Plan Discussed and Chart Reviewed Final Anesthetic Review Family History of Problems with Anesthesia: No History of Problems with Anesthesia: No NPO: Yes ASA Class: III Final Preanesthetic Review: No Changes in Pt Med Stat, Meds/Allgs Chart Reviewed and Consent Obtained/Reviewed Patient Risk: Intermediate Procedure Risk: Intermediate Anesthetic Plan Anesthetic Plan: MAC: Disposition: Standard PACU
--- NOTE | 2022-12-29 10:54 | ECG_ITS ---
Test Reason : S/P CARDIOVERSION Blood Pressure : / mmHG Vent. Rate : 064 BPM Atrial Rate : 064 BPM P-R Int : 214 ms QRS Dur : 082 ms QT Int : 438 ms P-R-T Axes : 061 043 058 degrees QTc Int : 451 ms Sinus rhythm with sinus arrhythmia with 1st degree A-V block Nonspecific T wave abnormality Abnormal ECG When compared with ECG of 30-NOV-2022 12:42, Sinus rhythm has replaced Atrial fibrillation Vent. rate has decreased BY 31 BPM T wave amplitude has decreased in Anterior leads Referred By: Rob Ryan Electronically Signed By:MELANI GREEN MD
[2022-12-29 11:00] VITALS: BP 136/66; PULSE 64; RESP 22; TEMP 36.7; O2SAT 92
[2022-12-29 11:05] VITALS: BP 134/75; PULSE 2; RESP 20; O2SAT 94
--- NOTE | 2022-12-29 11:05 | HO.CARDIVERS ---
Cardioversion Procedure Note Cardioversion Date of Procedure: Today Ordering Provider: Myself Performing Provider: Myself Indication for Procedure: Persistent atrial fibrillation Pre-Op Diagnosis: Same Post-Op Diagnosis: Same Performed with Transesophageal Echo: No Consent: Verbal and Written consent was obtained from the patient before starting the procedure and confirming use of anticoagulation. The patient was made aware of the risk of synchronized cardioversion including benefits and alternatives Procedure: After consent obtained, cardioversion pads were attached in anteroposterior configuration and the patient was sedated by the anesthesia team. Once adequate sedation achieved, patient was delivered 200 joules of biphasic synchronized energy in anteroposterior configuration Complications: None Impression: Successful conversion to sinus rhythm Recommendations: 1. 12 lead EKG 2. Continue Multaq and oral anticoagulation with Eliquis 3. Follow up in the office after Holter monitor
[2022-12-29 11:10] VITALS: BP 143/79; PULSE 65; RESP 20; O2SAT 90
[2022-12-29 11:15] VITALS: BP 138/79; PULSE 73; RESP 22; O2SAT 90
[2022-12-29 11:30] VITALS: BP 146/84; PULSE 67; RESP 19; TEMP 36.6; O2SAT 92
== END 2022-12-29 12:29 | disposition home or self-care (01) ==
PROVIDERS: PCP Internal Medicine; Visit Provider Internal Medicine Cardiovascular Disease
PROC: 5A2204Z Restoration of Cardiac Rhythm, Single (ICD-10-PCS; principal; 2022-12-29 11:00)
DX: I48.19 Other persistent atrial fibrillation (principal); Z79.01 Long term (current) use of anticoagulants; I26.99 Other pulmonary embolism without acute cor pulmonale; J84.9 Interstitial pulmonary disease, unspecified; Z99.81 Dependence on supplemental oxygen; C64.1 Malignant neoplasm of right kidney, except renal pelvis; Z79.52 Long term (current) use of systemic steroids; Z79.899 Other long term (current) drug therapy; Z91.040 Latex allergy status; Z66 Do not resuscitate; Z98.890 Other specified postprocedural states
CPT/HCPCS: 92960; 93005

== ENCOUNTER → 2022-12-29 09:22 | Outpatient (BNV) | payer MEDICARE, SELFPAY | PROVIDERS: PCP Internal Medicine; Visit Provider Internal Medicine Cardiovascular Disease | DX: I48.19 Other persistent atrial fibrillation (principal) | CPT/HCPCS: 92960 ==

== ENCOUNTER 2022-12-30 14:09 | Inpatient (IN) | payer MEDICARE, SELFPAY ==
--- NOTE | 2022-12-30 | ECG_ITS ---
Test Reason : DYSPNEA Blood Pressure : / mmHG Vent. Rate : 075 BPM Atrial Rate : 075 BPM P-R Int : 206 ms QRS Dur : 086 ms QT Int : 424 ms P-R-T Axes : 029 075 062 degrees QTc Int : 473 ms Normal sinus rhythm T wave abnormality, consider anterior ischemia Prolonged QT Abnormal ECG When compared with ECG of 29-DEC-2022 10:55, No significant change was found Referred By: Generic ED Physician Electronically Signed By:MELANI GREEN MD
--- NOTE | ~2022-12-30 | XR_ITS ---
EXAMINATION: XR CHEST CLINICAL INFORMATION: Pulmonary edema. COMPARISON: Chest x-ray November 30, 2022 TECHNIQUE: Frontal portable view of the chest was obtained. 1540 hours FINDINGS: Multifocal patchy airspace opacities in both lungs. This could be due to pulmonary edema versus multifocal infectious or inflammatory disease. This is new since prior chest x-ray November 30, 2022. No significant pleural effusion. Heart size is normal. Cardiac mediastinal contours are normal. XR/XR chest 1V IMPRESSION: Multifocal patchy airspace opacities in both lungs consistent with pulmonary edema versus multifocal infectious or inflammatory disease.
[2022-12-30 14:25] VITALS: BP 167/89; PULSE 82; PULSE 83; RESP 18; O2SAT 83; O2SAT 89; BMI 26.8
--- NOTE | 2022-12-30 14:46 | ED.SOB ---
HPI - SOB/Dyspnea General Chief Complaint: Dyspnea Stated Complaint: CARDIOVERTED T-1,SOB TODAY, 89% RA,94 @4LPM Time Seen by Provider: 12/30/22 14:29 Source: patient Mode of arrival: EMS Limitations: no limitations History of Present Illness HPI Narrative: patient comes to the emergency room complaining of shortness of breath that started yesterday around 20:00. Patient states that yesterday in the morning she had a cardioversion done in the hospital, then discharge home. In the evening, patient started feeling not right, shortness of breath worsen. Patient states that she is already on Eliquis for pulmonary embolisms that were diagnosed last month. Patient states she is compliant with her medications. Patient denies any lower extremity swelling. Patient states that she has oxygen at home. But only uses O2 with exertion as needed and at bedtime. Patient states that this morning at home, her oxygen saturation was in the high 70s on room air without any exertion. Patient called Dr. Ryan who is member certification manager, patient was asked to come to the emergency room for further evaluation and treatment. At this time, patient has no chest pain, mild shortness of breath, complaining of mild headache Related Data Home Medications Medication Instructions Recorded Confirmed cholecalciferol (vitamin D3) 25 25 mcg PO DAILY 10/22/21 12/30/22 mcg (1,000 unit) capsule prednisone 10 mg tablet 10 mg PO Q48H 11/30/22 12/30/22 atenolol 25 mg tablet 50 mg PO BID 12/23/22 12/30/22 apixaban 5 mg (74 tabs) tablets in 5 mg PO BID pulmonary embolism 12/30/22 12/30/22 a dose pack (Eliquis DVT-PE Treat 30D Start) Previous Rx's Medication Instructions Recorded dronedarone 400 mg tablet (Multaq) 400 mg PO BID #60 tabs 12/23/22 Allergies Allergy/AdvReac Type Severity Reaction Status Date / Time latex [LATEX] Allergy Intermediate RASH Verified 12/30/22 14:30 seasonal Allergy Unknown Anaphylaxis Uncoded 09/21/22 15:20 Review of Systems Review of Systems: Constitutional : No Weight loss, No Fever, No Chills, No Night Sweats, No Fatigue, No Malaise ENT/Mouth : No Hearing loss, No Ear Pain, No Nasal Congestion, No Sinus Pain, No Hoarseness, No sore throat, No Rhinorrhea, No Swallowing Difficulty Eyes: No Eye Pain, No Swelling, No Redness, No Foreign Body, No Discharge, No Vision Changes Cardiovascular : No Chest Pain, he is complaining of shortness of breath with exertion and low O2 at rest Respiratory : No Cough, No Sputum, No Wheezing, No Smoke Exposure, complaining of Dyspnea Gastrointestinal : No Nausea, No Vomiting, No Diarrhea, No Constipation, No abdominal Pain, No Hematochezia, No Melena Genitourinary : no irregular bleeding, No Dysuria, No Urinary Frequency, No Hematuria, No Urinary Incontinence, No Urgency, No Flank Pain, No Urinary Flow Changes, No Hesitancy Musculoskeletal : No joint pain, No Myalgias, No Joint Swelling Skin : No Skin Lesions, No rash Neuro : No Weakness, No Numbness, No Paresthesias, No Loss of Consciousness, No Dizziness, No Headache Psych : No Anxiety/Panic, No Depression, No SI/HI/AH/VH, No Social Issues, Heme/Lymph: No Bruising, No Bleeding,No Lymphadenopathy Endocrine : No Polyuria, No Polydipsia, No Temperature Intolerance [facility] Past Medical History Medical History History of kidney disease Pulmonary nodule Renal cell cancer Renal cell carcinoma of right kidney Chronic respiratory failure with hypoxia Pneumonitis ILD (interstitial lung disease) Surgical History History of History of cholecystectomy Social History Social History Household Members: None Housing: House Patient Tobacco Use Status: Never used Tobacco Years Smoked: 5 Advance Directives: Yes Advance Directives Information Provided: No Advance Directives on File: No Advance Directives Date on File: 12/01/22 Nutrition Risks: No Nutritional Risk service: No Physical Exam Vital Signs: Vital Signs: Last Vital Signs Pulse 83 12/30/22 14:25 Resp 18 12/30/22 14:25 BP 167/89 H 12/30/22 14:25 Pulse Ox 89 L 12/30/22 14:25 O2 Del Method Nasal Cannula 12/30/22 14:25 Oxygen Flow Rate 3 12/30/22 14:25 BMI result Body Mass Index 26.8 Const: Other: Appearance: Alert. Oriented X3. No acute distress. Eyes: Pupils equal, round and reactive to light. ENT: Pharynx normal. Neck: Normal inspection. Neck supple. No lymph nodes noted. No crepitus CVS: Normal heart rate and rhythm. Pulses normal. Normal S1 and S2 Respiratory: No respiratory distress. bilateral crackles, very mild wheezing bilaterally Abdomen: Soft and nontender. No rigidity. No distention. Skin: Skin warm and dry. Normal skin color. Normal skin turgor. Extremities: No lower extremity edema. No Lacerations. No Rash Neuro: Oriented X 3. No motor deficit. No sensory deficit. Moving all extremities. No slurred speech. CN 2 through 12 grossly intact Psych: calm, cooperative, normal affect Course Course Course Narrative: - patient's oxygen saturation 90-92% on 3 L nasal cannula - all of patient's labs pending - patient given 1 dose of Tylenol for headache Medications Administered Discontinued Medications Generic Name Dose Route Start Last Admin Trade Name Freq PRN Reason Stop Dose Admin Acetaminophen 975 mg 12/30/22 14:48 12/30/22 16:33 Acetaminophen 325 Mg Tablet PO 12/30/22 14:49 975 mg ONCE ONE Administration Furosemide 60 mg 12/30/22 16:27 12/30/22 16:33 Furosemide 100 Mg/10 Ml Vial IVPUSH 12/30/22 16:28 60 mg ONCE ONE Administration Protocol Medical Decision Making Medical Decision Making [facility] Narrative: my interpretation of EKG: Normal sinus rhythm, heart rate 75, nonspecific T-wave inversion in V3, no ST segment depression or elevation, QTC 473 - my interpretation of chest x-ray: Worsening pulmonary edema when compared to previous chest x-ray - my interpretation of labs: Hematology and chemistry at baseline, BNP 182, not significantly elevated from baseline, troponin negative. D-dimer 227, negative for age adjustment. Patient is on Eliquis and compliant with medication - patient is on 3 L at rest, with minimal exertion in bed without standing, oxygen saturation drops to 86%. - I discussed the patient with Dr. Bowles, patient being admitted. Differential Diagnosis Differential Diagnoses: The differential diagnosis associated with the presentation includes ( Pneumonia, CHF, viral URI) Admission/Observation Consideration of admission/observation: Escalation of care including admission/observation considered Consult Healthcare Provider Management of the patient was discussed with: Hospitalist Lab Data MDM Lab Attestation statement: I reviewed the patient's lab results. 12/30/22 15:03 12/30/22 15:03 Labs: Lab Results 12/30/22 Range/Units 15:03 WBC 11.1 H (4.8-10.8) X10*3/uL RBC 4.58 (4.20-5.50) X10*6/uL Hgb 13.1 (12.0-16.0) g/dl Hct 40.4 (37.0-47.0) % MCV 88.2 (80.0-98.0) fL MCH 28.6 (27.0-33.0) pg MCHC 32.4 (31.0-35.0) g/dl RDW 14.4 (11.0-16.0) % Plt Count 186 (160-400) X10*3/uL MPV 9.4 (9.4-12.3) fL Immature Gran % (Auto) 0.4 (0.0-0.4) % Neut % (Auto) 88.7 H (45-73) % Lymph % (Auto) 7.0 L (20-40) % Otoe % (Auto) 3.1 (2-11) % Eos % (Auto) 0.5 (0-4) % Baso % (Auto) 0.3 (0-2) % Lymph # (Auto) 0.8 L (1.2-4.9) X10*3/uL O[place] # (Auto) 0.3 (0.1-1.2) X10*3/uL Eos # (Auto) 0.1 (0.0-0.4) X10*3/uL Baso # (Auto) 0.0 (0.0-0.2) X10*3/uL Abs Immat Gran (auto) 0.04 H (0.00-0.03) X10*3/uL Absolute Neuts (auto) 9.8 H (2.0-8.3) x10*3/uL Absolute Nucleated RBC 0.000 (0.0-0.012) X10*3/uL Nucleated RBC % (auto) 0.0 (0.0-0.2) /100WBC D-Dimer High Sensitivty 227 NG/ML Sodium 141 (135-145) mmol/L Potassium 3.7 (3.3-5.1) mmol/L Chloride 107 (96-108) mmol/L Carbon Dioxide 26 (22-29) mmol/L Anion Gap 12 (12-20) BUN 14 (9-16) mg/dL Creatinine 0.71 (0.5-1.4) mg/dL Estim Creat Clear Calc 65.5 Estimated GFR > 60 Random Glucose 124 H (60-115) mg/dL Calcium 9.4 (8.4-10.2) mg/dL Troponin I High Sens < 2.7 (<3.5-17.0) ng/L B-Natriuretic Peptide 182 H (<100) pg/mL Independent Interpretation I performed an independent interpretation of an: Plain X-Ray Radiology Impression Discussion of test interpretation with radiology: I have reviewed the radiologist's reading. Radiologist Impression: Multifocal patchy airspace opacities in both lungs. This could be due to pulmonary edema versus multifocal infectious or inflammatory disease. This is new since prior chest x-ray November 30, 2022. No significant pleural effusion. Heart size is normal. Cardiac mediastinal contours are normal. XR/XR chest 1V IMPRESSION: Multifocal patchy airspace opacities in both lungs consistent with pulmonary edema versus multifocal infectious or inflammatory disease. Critical Care Time Critical Care Time Critical Care Time: Yes Total Critical Care Time: 60 Attestation: I have personally provided critical care time. Time includes review of lab data, radiology results, discussion with consultants, and monitoring for potential decompensation. Intervention performed as documented. Discharge Plan Discharge Clinical Impression: CHF exacerbation Patient Disposition: Admitted As Inpatient Prescriptions: No Action prednisone 10 mg tablet 10 mg PO Q48H Eliquis DVT-PE Treat 30D Start 5 mg (74 tabs) tablets,dose pack 5 mg PO BID cholecalciferol (vitamin D3) 25 mcg (1,000 unit) capsule 25 mcg PO DAILY Multaq 400 mg tablet 400 mg PO BID Qty: 60 2RF Rx Instructions: must administer with a meal/food. Start 2 days prior to the procedure date of synchronized cardioversion atenolol 25 mg tablet 50 mg PO BID
[2022-12-30 15:09] LABS: MANUAL DIFF FLAG NO
[2022-12-30 15:14] LABS: Basophils Percent Auto 0.3 % (0-2); Eosinophils Absolute Auto 0.1 X10*3/uL (0.0-0.4); Eosinophils Percent Auto 0.5 % (0-4); Hematocrit 40.4 % (37.0-47.0); Hemoglobin 13.1 g/dl (12.0-16.0); Imm Gran Abs Auto 0.04 X10*3/uL (0.00-0.03); Imm Gran Pct Auto 0.4 % (0.0-0.4); Lymphocytes Absolute Auto 0.8 X10*3/uL (1.2-4.9); Mean Corpuscular HGB Conc 32.4 g/dl (31.0-35.0); Mean Corpuscular Hemoglobin 28.6 pg (27.0-33.0); Mean Corpuscular Volume 88.2 fL (80.0-98.0); Mean Platelet Volume 9.4 fL (9.4-12.3); Monocytes Absolute Auto 0.3 X10*3/uL (0.1-1.2); Monocytes Percent Auto 3.1 % (2-11); Neutrophils Absolute Auto 9.8 x10*3/uL (2.0-8.3); Neutrophils Percent Auto 88.7 % (45-73); Platelet Count 186 X10*3/uL (160-400); Red Blood Count 4.58 X10*6/uL (4.20-5.50); Red Cell Distribution Width 14.4 % (11.0-16.0); White Blood Count 11.1 X10*3/uL (4.8-10.8)
[2022-12-30 15:20] LABS: D Dimer High Sensitivity 227 NG/ML
[2022-12-30 15:24] LABS: Anion Gap 12 (12-20); Blood Urea Nitrogen 14 mg/dL (9-16); Calcium 9.4 mg/dL (8.4-10.2); Carbon Dioxide 26 mmol/L (22-29); Chloride 107 mmol/L (96-108); Creatinine Clr Calc Pharmacy 65.5; Estimated Glomerular Filt Rate > 60; Glucose Random 124 mg/dL (60-115); Potassium 3.7 mmol/L (3.3-5.1); Sodium 141 mmol/L (135-145)
[2022-12-30 15:31] LABS: B Type Natriuretic Peptide 182 pg/mL (<100)
[2022-12-30 15:37] LABS: Troponin-I High Sensitivity < 2.7 ng/L (<3.5-17.0)
[2022-12-30] MEDS: Acetaminophen 325 MG TABLET 975 MG PO (16:33)
[2022-12-30] MEDS: Furosemide 100 MG/10 ML VIAL 60 MG IVPUSH (16:33)
--- NOTE | 2022-12-30 17:13 | PHA.MEDREC ---
Pharmacy Consult ? Medication Reconciliation Pharmacy has completed the medication reconciliation. Patient reported medications. Ladonna Gotti, MagdielD
--- NOTE | 2022-12-30 18:05 | PM.IMHP ---
History of Present Illness Date of Service: 12/30/22 Chief Complaint: Shortness of breath 82-year-old female patient with recently diagnosed new onset atrial fibrillation, and bilateral pulmonary embolism on Eliquis underwent cardioversion by Dr. Hernandez on 12/29, later at night developed shortness of breath worse with exertion, denies PND or orthopnea she denies associated chest pain, no palpitations, noticed mild lower extremity swelling patient on home O2 with exertion as needed and at bedtime but noted to have hypoxia with finger oximetry 70 on room air today without exertion therefore used home O2 called her primary b2b sales consultant and was recommended to come to the emergency room in the ED chest x-ray was consistent with congestive heart failure BNP mildly elevated patient received 1 dose of IV Lasix, and now being admitted for treatment of acute congestive heart failure EKG showed normal sinus rhythm, patient denies fever, no chills, no cough or sputum production, no nausea no vomiting no abdominal pain, no diarrhea and no urinary symptoms.. Review of Systems Review of Systems: General no headache, no dizziness ,no fever chills. CVS no chest pain, no palpitation. Respiratory no cough, no sputum production , Gastrointestinal no nausea ,no vomiting, no abdominal pain no urinary urgency,No frequency Skin no rash All other system reviewed and negative [facility] Medical History History of kidney disease Pulmonary nodule Renal cell cancer Renal cell carcinoma of right kidney Chronic respiratory failure with hypoxia Pneumonitis ILD (interstitial lung disease) Surgical History History of History of cholecystectomy Social History Household Members: None Housing: House Patient Tobacco Use Status: Never used Tobacco Years Smoked: 5 Advance Directives: Yes Advance Directives Information Provided: No Advance Directives on File: No Advance Directives Date on File: 12/01/22 service: No Meds Allergies Allergy/AdvReac Type Severity Reaction Status Date / Time latex [LATEX] Allergy Intermediate RASH Verified 12/30/22 14:30 seasonal Allergy Unknown Anaphylaxis Uncoded 09/21/22 15:20 Active Medications: Current Medications Acetaminophen (Acetaminophen 325 Mg Tablet) 650 mg PO Q6H PRN PRN Reason: Pain, Mild (Pain Scale 1-3) Apixaban (Apixaban 5 Mg Tablet) 5 mg PO BID [facility] Atenolol (Atenolol 50 Mg Tablet) 50 mg PO BID [facility]; Protocol Benzonatate (Benzonatate 100 Mg Capsule) 100 mg PO TID PRN PRN Reason: Cough Melatonin (Melatonin 3 Mg Tablet) 3 mg PO BEDTIME PRN PRN Reason: Insomnia Sodium Chloride (0.9 % Sodium Chloride Flush 3 Ml Syringe) 3 ml IVFLUSH QSHIFT [facility] Vitamin D (Cholecalciferol (Vitamin D3) 25 Mcg Tablet) 25 mcg PO DAILY [facility] Home Medications Medication Instructions Recorded Confirmed Last Taken Type cholecalciferol (vitamin D3) 25 25 mcg PO DAILY 10/22/21 12/30/22 12/30/22 History mcg (1,000 unit) capsule prednisone 10 mg tablet 10 mg PO Q48H 11/30/22 12/30/22 12/30/22 History atenolol 25 mg tablet 50 mg PO BID 12/23/22 12/30/22 12/30/22 History apixaban 5 mg (74 tabs) tablets in 5 mg PO BID pulmonary embolism 12/30/22 12/30/22 12/30/22 History a dose pack (Washio DVT-PE Treat 30D Start) Physical Exam Vital Signs and Narrative: Vital Signs: Last Vital Signs Pulse 83 12/30/22 14:25 Resp 18 12/30/22 14:25 BP 167/89 H 12/30/22 14:25 Pulse Ox 89 L 12/30/22 14:25 O2 Del Method Nasal Cannula 12/30/22 14:25 Oxygen Flow Rate 3 12/30/22 14:25 BMI result Body Mass Index 26.8 Const: Other: General awake alert x3, resting comfortably in no acute distress. Neck no JVD. CVS regular rate rhythm, Respiratory lungs bilateral crackles, no respiratory distress, no wheeze, no rhonchi. Gastrointestinal abdomen soft, non tender, bowel sounds audible Extremities trace ankle edema Neuro nonfocal Skin no rash psych appropriate affect Results Labs 12/30/22 15:03 12/30/22 15:03 Labs: Laboratory Results - last 24 hr 12/30/22 15:03 MCV 88.2 MCH 28.6 MCHC 32.4 RDW 14.4 Plt Count 186 MPV 9.4 Immature Gran % (Auto) 0.4 Neut % (Auto) 88.7 H Lymph % (Auto) 7.0 L Archer % (Auto) 3.1 Eos % (Auto) 0.5 Baso % (Auto) 0.3 Lymph # (Auto) 0.8 L Archer # (Auto) 0.3 Eos # (Auto) 0.1 Baso # (Auto) 0.0 Abs Immat Gran (auto) 0.04 H Absolute Neuts (auto) 9.8 H Absolute Nucleated RBC 0.000 Nucleated RBC % (auto) 0.0 D-Dimer High Sensitivty 227 Anion Gap 12 Estim Creat Clear Calc 65.5 Estimated GFR > 60 Random Glucose 124 H Calcium 9.4 B-Natriuretic Peptide 182 H Imaging Radiologist's Impressions: Impressions Chest X-Ray 12/30/22 15:42 IMPRESSION: Multifocal patchy airspace opacities in both lungs consistent with pulmonary edema versus multifocal infectious or inflammatory disease. Assessment and Plan (1) Pulmonary embolism: Qualifiers: Pulmonary embolism type: multiple subsegmental (without acute cor pulmonale) Qualified Code(s): I26.94 - Multiple subsegmental pulmonary emboli without acute cor pulmonale Status: Acute (2) Atrial fibrillation: Qualifiers: Atrial fibrillation type: persistent (not longstanding) Qualified Code(s): I48.19 - Other persistent atrial fibrillation Status: Acute Plan 81-year-old female with history right-sided renal cell carcinoma s/p ablation 06/13, interstitial lung disease and pneumonitis with chronic hypoxemic respiratory failure on 2 L supplemental O2 with exertion and at night prn, newly diagnosed atrial fibrillation underwent cardioversion yesterday a.m. and developed shortness of breath last night presented to hospital due to worsening shortness of breath and hypoxia. # acute hypoxic respiratory failure due to acute diastolic heart failure Admit to telemetry receive IV Lasix in ED follow clinical course Normal troponin, no EKG changes suggestive of ischemia, DC Multaq Recent echocardiogram December 01 showed EF 60-65% no evidence of regional wall motion abnormality, indeterminate diastolic function, normal right ventricular size and function. Monitor BMP and BNP follow i/os Cardiology consult # new onset atrial fibrillation status post cardioversion 12/29 now in normal sinus rhythm Continue Eliquis 5 mg b.i.d. and beta-blockers for rate control DC Multaq likely cause of acute CHF # Hx of bilateral pulmonary embolism - likely related to malignancy , continue Eliquis # right renal cell carcinoma -patient reports underwent ablation of the right kidney in 06/13 in [place], being followed at [facility] #ILD with pneumonitis -no acute exacerbation, continue home steroids -2L oxygen at baseline for activity and at bedtime DVT prophylaxis-Eliquis Full code Patient requires 2 night inpatient stay for management of acute congestive heart failure and acute hypoxic respiratory failure requiring IV diuretics and expert consultation. Quality Stroke Does the patient have a stroke diagnosis?: No VTE Prior VTE?: No VTE Risk Level:: Medical - moderate - high VTE Device Contraindication: Treatment Not Indicated VTE Drug Contraindication: N/A - Med Ordered
[2022-12-30 19:26] VITALS: BP 134/75; PULSE 82; RESP 18; O2SAT 96
--- NOTE | 2022-12-30 20:32 | PC.NURSE ---
report given to rosibel WATTS
[2022-12-30 21:24] VITALS: BP 162/93; PULSE 83; RESP 16; TEMP 36.6; O2SAT 94
[2022-12-30 21:28] VITALS: BMI 27.1
[2022-12-30] MEDS: Apixaban 5 MG TABLET PO (21:53)
[2022-12-30] MEDS: atenoloL 50 MG TABLET PO (21:53)
[2022-12-30] MEDS: 0.9 % Sodium Chloride Flush 3 ML SYRINGE IVFLUSH (21:54)
[2022-12-30 23:33] VITALS: BP 158/75; PULSE 80; RESP 20; TEMP 36.7; O2SAT 94
--- NOTE | 2022-12-31 | ECG_ITS ---
Test Reason : new afib Blood Pressure : / mmHG Vent. Rate : 108 BPM Atrial Rate : 000 BPM P-R Int : 000 ms QRS Dur : 080 ms QT Int : 380 ms P-R-T Axes : 000 061 058 degrees QTc Int : 509 ms Atrial fibrillation with rapid ventricular response ST & T wave abnormality, consider anterior ischemia Abnormal ECG When compared with ECG of 30-DEC-2022 15:24, Atrial fibrillation has replaced Sinus rhythm Heart rate has increased Referred By: Suhas Bowles Electronically Signed By:MELANI GREEN MD
[2022-12-31 03:35] VITALS: BP 125/71; PULSE 77; RESP 20; TEMP 36.9; O2SAT 93
[2022-12-31 07:41] VITALS: BP 135/73; PULSE 87; RESP 20; TEMP 37.4; O2SAT 93
--- NOTE | 2022-12-31 07:44 | PC.NURSE ---
Patient removed iv acces to both arms overnight
--- NOTE | 2022-12-31 08:13 | MHC.CM.PN ---
CM met with Patient at bedside and addressed IMM with her, providing Patient with the original and placing a copy on the chart. Patient lives alone in a condo and she receives her home O2 from [facility]. Home/self care is the goal and CM has initiated and will follow for dc planning. PCP is Dr. Darrell Sutherland and Patient's Daughter/Skye is the HCP.
[2022-12-31] MEDS: Apixaban 5 MG TABLET PO ×2 (09:32→21:44)
[2022-12-31] MEDS: Cholecalciferol (Vitamin D3) 25 MCG TABLET PO (09:32)
[2022-12-31] MEDS: atenoloL 50 MG TABLET PO ×2 (09:32→21:44)
[2022-12-31] MEDS: 0.9 % Sodium Chloride Flush 3 ML SYRINGE IVFLUSH (09:33)
[2022-12-31] MEDS: Acetaminophen 325 MG TABLET 650 MG PO ×2 (09:36→21:43)
--- NOTE | 2022-12-31 11:08 | P.CONCA_ITS ---
History of Present Illness History of Present Illness Date of Service: 12/31/22 Requesting physician: Suhas Bowles Consult reason: other (Transient CHF post cardioversion) Chief complaint: shortness of breath Narrative: I was consulted to see Sudha in cardiology consultation today as she underwent cardioversion 2 days ago and following that yesterday started having shortness of breath and hypoxemia. She call or office and was advised to come to the emergency room. In the emergency room she was noted to be in heart failure given 1 dose of Lasix 60 mg IV push. BNP was in the upper 100 range. She has responded well and currently feeling very well and her shortness of breath is improved. Her Multaq was held yesterday and today she is back in AFib with rapid ventricular response heart rate going up to 130-140 beats per minute. Hemodynamically stable. She denies any palpitations. No lightheadedness, syncope. Denies any chest pain. Review of Systems 2 Constitutional: Constitutional: Reports no additional constitutional complaints Eyes: Eyes: Reports no additional eye complaints Cardiovascular: Cardiovascular: Denies chest pain, Denies rapid heart rate, Denies leg edema, Denies lightheadedness, Denies palpitations and Reports dyspnea Respiratory: Respiratory: Reports dyspnea Gastrointestinal: Gastrointestinal: Reports no additional gastrointestinal complaints Neurologic: Reports system reviewed and no additional complaints, except as documented Endocrine: Endocrine: Denies palpitations [facility] Past Medical History Medical History History of kidney disease Pulmonary nodule Renal cell cancer Renal cell carcinoma of right kidney Chronic respiratory failure with hypoxia Pneumonitis ILD (interstitial lung disease) Surgical History Surgical History History of History of cholecystectomy Social History Social History Household Members: None Housing: Condominium Do you presently have visiting nurse or other home services: No Patient Tobacco Use Status: Never used Tobacco Years Smoked: 5 Use of substances other than those prescribed or required for medical reasons: No Currently Displaying Signs/Symptoms of Drug Intoxication Withdrawal: No Have you been hit, kicked, punched, or otherwise hurt by someone within the past year? If so, by whom?: No Do you feel safe in your current relationship?: No Current Relationship Is there a partner from a previous relationship who is making you feel unsafe now?: No Are you made to feel afraid or neglected: No Advance Directives: Yes Advance Directives Information Provided: No Advance Directives on File: No Advance Directives Date on File: 12/01/22 Do you have thoughts of harming others: None Do you have a plan to hurt others: No Plan Recently lost weight without trying: No Nutrition Risks: No Nutritional Risk Patient : No : No Poor oral hygiene: No service: No Meds Allergies Allergy/AdvReac Type Severity Reaction Status Date / Time latex [LATEX] Allergy Intermediate RASH Verified 12/30/22 14:30 seasonal Allergy Unknown Anaphylaxis Uncoded 09/21/22 15:20 Active Medications: Current Medications Acetaminophen (Acetaminophen 325 Mg Tablet) 650 mg PO Q6H PRN PRN Reason: Pain, Mild (Pain Scale 1-3) Last Admin: 12/31/22 09:36 Dose: 650 mg Apixaban (Apixaban 5 Mg Tablet) 5 mg PO BID [facility] Last Admin: 12/31/22 09:32 Dose: 5 mg Atenolol (Atenolol 50 Mg Tablet) 50 mg PO BID [facility]; Protocol Last Admin: 12/31/22 09:32 Dose: 50 mg Benzonatate (Benzonatate 100 Mg Capsule) 100 mg PO TID PRN PRN Reason: Cough Melatonin (Melatonin 3 Mg Tablet) 3 mg PO BEDTIME PRN PRN Reason: Insomnia Sodium Chloride (0.9 % Sodium Chloride Flush 3 Ml Syringe) 3 ml IVFLUSH QSHIFT [facility] Last Admin: 12/31/22 09:33 Dose: 3 ml Vitamin D (Cholecalciferol (Vitamin D3) 25 Mcg Tablet) 25 mcg PO DAILY [facility] Last Admin: 12/31/22 09:32 Dose: 25 mcg Home Medications Medication Instructions Recorded Confirmed Last Taken Type cholecalciferol (vitamin D3) 25 25 mcg PO DAILY 10/22/21 12/30/22 12/30/22 History mcg (1,000 unit) capsule prednisone 10 mg tablet 10 mg PO Q48H 11/30/22 12/30/22 12/30/22 History atenolol 25 mg tablet 50 mg PO BID 12/23/22 12/30/22 12/30/22 History apixaban 5 mg (74 tabs) tablets in 5 mg PO BID pulmonary embolism 12/30/22 12/30/22 12/30/22 History a dose pack (EliGunosy DVT-PE Treat 30D Start) Physical Exam 2 Vital Signs: Vital Signs: Last Vital Signs Temp 99.3 F 12/31/22 07:41 Pulse 87 12/31/22 07:41 Resp 20 12/31/22 07:41 BP 135/73 12/31/22 07:41 Pulse Ox 93 12/31/22 07:41 O2 Del Method Nasal Cannula 12/31/22 07:41 O2 Flow Rate 3 12/31/22 07:41 Oxygen Flow Rate 3 12/30/22 14:25 BMI result Body Mass Index 27.1 Const: General: cooperative, comfortable, no acute distress, alert and awake Nutritional Appearance: overweight Orientation/consciousness: patient oriented x3 Limitations: no limitations HEENT: Head: Yes normocephalic and Yes atraumatic Neck: Neck: Yes trachea midline, Yes supple and Yes no JVD Resp: Effort & Inspection: normal respiratory effort Auscultation: clear to auscultation bilaterally Cardio: Jugular venous distension: no JVD Rate: tachycardic Rhythm: a bnormal rhythm irregularly irregular Heart sounds: S1 normal heart sound present, S2 normal heart sound present, no click, no gallops, no murmurs and no rubs GI: Auscultation: normal bowel sounds Skin: General skin exam: no rashes or lesions noted Neuro: General: patient oriented x3 and no focal motor deficits Extrem: General: Yes no clubbing, cyanosis or edema Psych: Appearance: grossly normal Objective Labs and Meds 12/30/22 15:03 12/30/22 15:03 Lab results: Laboratory Results - last 24 hr 12/30/22 15:03 WBC 11.1 H RBC 4.58 Hgb 13.1 Hct 40.4 MCV 88.2 MCH 28.6 MCHC 32.4 RDW 14.4 Plt Count 186 MPV 9.4 Immature Gran % (Auto) 0.4 Neut % (Auto) 88.7 H Lymph % (Auto) 7.0 L [place] % (Auto) 3.1 Eos % (Auto) 0.5 Baso % (Auto) 0.3 Lymph # (Auto) 0.8 L [place] # (Auto) 0.3 Eos # (Auto) 0.1 Baso # (Auto) 0.0 Abs Immat Gran (auto) 0.04 H Absolute Neuts (auto) 9.8 H Absolute Nucleated RBC 0.000 Nucleated RBC % (auto) 0.0 D-Dimer High Sensitivty 227 Sodium 141 Potassium 3.7 Chloride 107 Carbon Dioxide 26 Anion Gap 12 BUN 14 Creatinine 0.71 Estim Creat Clear Calc 65.5 Estimated GFR > 60 Random Glucose 124 H Calcium 9.4 Troponin I High Sens < 2.7 B-Natriuretic Peptide 182 H EKG shows atrial fibrillation rapid ventricular response Imaging Radiologist's impression: Impressions Chest X-Ray 12/30/22 15:42 IMPRESSION: Multifocal patchy airspace opacities in both lungs consistent with pulmonary edema versus multifocal infectious or inflammatory disease. Assessment and Plan (1) CHF exacerbation: Status: Acute Transient acute CHF post cardioversion most likely due to atrial stunning and not related to Multaq therapy. However patient is currently of Multaq. Responded very well to 1 dose of Lasix. Does not need ongoing Lasix therapy. Need to watch for signs and symptoms of heart failure. Will continue rate control approach, see below. Will need ischemia evaluation as outpatient (2) Atrial fibrillation: Qualifiers: Atrial fibrillation type: persistent (not longstanding) Qualified Code(s): I48.19 - Other persistent atrial fibrillation Status: Acute Recurrent atrial fibrillation with rapid ventricular response with recent cardioversion with success. Multaq was discontinued yesterday. Patient developed transient CHF most likely rate of standing. However in the long run I think she would still benefit with rhythm control approach although choices of therapy are limited. If the myocardial perfusion imaging is completely within normal limits could consider class 1 C agents to maintain rhythm. And/or can be a candidate for Tikosyn therapy. I am not sure if she would be a good candidate for amiodarone therapy given her underlying interstitial lung disease. Continue full oral anticoagulation with Eliquis. Given rapid rate right now will pursue rate control with IV digoxin. If rate is adequately controlled by later today can be discharged otherwise watch overnight for better rate control. Will follow with you if patient's inpatient Procedures Date of Service Date of Service: 12/31/22
[2022-12-31 11:20] VITALS: BP 123/71; PULSE 108; RESP 20; TEMP 36.6; O2SAT 91
--- NOTE | 2022-12-31 13:00 | P.DS_ITS ---
DS: Providers Provider Date of Service: 01/01/23 Date of admission: 12/30/22 17:52 Primary care physician: Darrell Sutherland MD Consults: 12/31/22 10:13 Consult to Cardiology Routine Consulting Provider: [facility] [place] [place] Cardiovascular Services Reason for consultation: chf Has provider been notified: No DS: Diagnosis Discharge Diagnosis (1) CHF exacerbation: Status: Acute (2) Atrial fibrillation: Status: Acute DS: Summary Hospital Course Hospital Course: Date of Service: 12/30/22 Chief Complaint: Shortness of breath 82-year-old female patient with recently diagnosed new onset atrial fibrillation, and bilateral pulmonary embolism on Eliquis underwent cardioversion by Dr. Hernandez on 12/29, later at night developed shortness of breath worse with exertion, denies PND or orthopnea she denies associated chest pain, no palpitations, noticed mild lower extremity swelling patient on home O2 with exertion as needed and at bedtime but noted to have hypoxia with finger oximetry 70 on room air today without exertion therefore used home O2 called her primary screen roller and was recommended to come to the emergency room in the ED chest x-ray was consistent with congestive heart failure BNP mildly elevated patient received 1 dose of IV Lasix, and now being admitted for treatment of acute congestive heart failure EKG showed normal sinus rhythm, patient denies fever, no chills, no cough or sputum production, no nausea no vomiting no abdominal pain, no diarrhea and no urinary symptoms.. Hospital course 81-year-old female with history right-sided renal cell carcinoma s/p ablation 06/13, interstitial lung disease and pneumonitis with chronic hypoxemic respiratory failure on 2 L supplemental O2 with exertion and at night prn, newly diagnosed atrial fibrillation underwent cardioversion yesterday a.m. and developed shortness of breath last night presented to hospital due to worsening shortness of breath and hypoxia. # acute hypoxic respiratory failure due to acute diastolic heart failure patient admitted to telemetry unit treated with IV Lasix noted to have normal troponin EKG showed no acute ischemic changes, shortness of breath resolved patient appears euvolemic, seen by screen roller they recommend no further diuretics, as per Cardiology likely CHF due to atrial stunning myocardia post cardioversion,Recent echocardiogram December 01 showed EF 60-65% no evidence of regional wall motion abnormality, indeterminate diastolic function, normal right ventricular size and function. # in regard to new onset atrial fibrillation status post cardioversion 12/29 was not normal sinus rhythm but patient converted into atrial fibrillation with rapid RVR during hospital stay Treated with digoxin with good response continue Eliquis b.i.d. and beta-blockers for rate control , a started on digoxin 0.25 mg daily for rate control, seen by screen roller they recommend rhythm control approach and will follow patient closely as outpatient. Multaq discontinued. # Hx of bilateral pulmonary embolism likely related to malignancy , continue Eliquis # right renal cell carcinoma -patient reports underwent ablation of the right kidney in 06/13 in [place], being followed at [facility] #ILD with pneumonitis -no acute exacerbation, continue home steroids, continue 2L oxygen at baseline for activity and at bedtime. Time Attestation Discharge coordination time: Greater than 30 minutes Quality: Safe Use of Opioids Does Pt have an Active Cancer Diagnosis on the Problem List?: No Quality: Stroke Does the patient have a stroke diagnosis?: No Physical Exam Vital Signs: Vital Signs: Last Vital Signs Temp 97.9 F 12/31/22 11:20 Pulse 108 H 12/31/22 11:20 Resp 20 12/31/22 11:20 BP 123/71 12/31/22 11:20 Pulse Ox 91 L 12/31/22 11:20 O2 Del Method Nasal Cannula 12/31/22 11:20 O2 Flow Rate 3 12/31/22 11:20 Oxygen Flow Rate 3 12/30/22 14:25 BMI result Body Mass Index 27.1 Const: Other: General awake alert x3, resting comfortably in no acute distress. Neck no JVD. CVS irregular rate rhythm, Respiratory lungs clear to auscultation, no respiratory distress, no wheeze, no rhonchi. Gastrointestinal abdomen soft, non tender, bowel sounds audible Extremities no edema Neuro non focal Skin no rash psych appropriate affect DS: Data Data Completed and Pending Labs on day of discharge: Laboratory Results - last 24 hr 12/30/22 15:03 WBC 11.1 H RBC 4.58 Hgb 13.1 Hct 40.4 MCV 88.2 MCH 28.6 MCHC 32.4 RDW 14.4 Plt Count 186 MPV 9.4 Immature Gran % (Auto) 0.4 Neut % (Auto) 88.7 H Lymph % (Auto) 7.0 L [place] % (Auto) 3.1 Eos % (Auto) 0.5 Baso % (Auto) 0.3 Lymph # (Auto) 0.8 L [place] # (Auto) 0.3 Eos # (Auto) 0.1 Baso # (Auto) 0.0 Abs Immat Gran (auto) 0.04 H Absolute Neuts (auto) 9.8 H Absolute Nucleated RBC 0.000 Nucleated RBC % (auto) 0.0 D-Dimer High Sensitivty 227 Sodium 141 Potassium 3.7 Chloride 107 Carbon Dioxide 26 Anion Gap 12 BUN 14 Creatinine 0.71 Estim Creat Clear Calc 65.5 Estimated GFR > 60 Random Glucose 124 H Calcium 9.4 Troponin I High Sens < 2.7 B-Natriuretic Peptide 182 H Discharge Plan Discharge Anticipated Discharge Date/Time: 01/01/23 10:29 Patient Disposition: Home, Self-Care Discharge Diagnosis: Acute diastolic congestive heart failure post cardioversion Atrial fibrillation with RVR Referrals: Darrell Sutherland MD [Primary Care Provider] - 1 Week Discharge Medications: New digoxin 250 mcg (0.25 mg) Tablet 0.25 mg PO DAILY Qty: 30 0RF Continued prednisone 10 mg tablet 10 mg PO Q48H Eliquis DVT-PE Treat 30D Start 5 mg (74 tabs) tablets,dose pack 5 mg PO BID cholecalciferol (vitamin D3) 25 mcg (1,000 unit) capsule 25 mcg PO DAILY atenolol 25 mg tablet 50 mg PO BID Discontinued Multaq 400 mg tablet 400 mg PO BID Qty: 60 2RF Rx Instructions: must administer with a meal/food. Start 2 days prior to the procedure date of synchronized cardioversion Discharge Orders: Discharge Order (Routine); Ordered 01/01/23 Ordered By: Suhas Bowles Diet: Advance to usual diet Activity on Discharge: As tolerated Stand Alone Forms: Patient Portal Discharge page Care Plan Goals: Take digoxin 1 tablet by mouth daily Hold Multaq Continue all medications as prescribed Return to check with recurrent episodes of shortness of breath, chest pain or palpitations. Health Concerns: Interstitial lung disease PE Plan of Treatment: Outpatient follow-up with screen roller Dr. Hernandez call for appointment Assessment: As above
[2022-12-31] MEDS: Digoxin 0.25 MG TABLET 0.5 MG PO (13:03)
--- NOTE | 2022-12-31 15:41 | HO.PM.IMPN ---
Subjective Subjective Date of Service: 12/31/22 Interval History: Feeling better, no shortness of breath, denies chest pain, no palpitation, went into AFib with RVR this morning, no lightheadedness, no dizziness, no other acute events overnight. Review of Systems All other system reviewed and negative Physical Exam Vital Signs: Vital Signs: Last Vital Signs Temp 97.9 F 12/31/22 11:20 Pulse 108 H 12/31/22 11:20 Resp 20 12/31/22 11:20 BP 123/71 12/31/22 11:20 Pulse Ox 91 L 12/31/22 11:20 O2 Del Method Nasal Cannula 12/31/22 11:20 O2 Flow Rate 3 12/31/22 11:20 Oxygen Flow Rate 3 12/30/22 14:25 BMI result Body Mass Index 27.1 Const: Other: General awake alert x3, resting comfortably in no acute distress. Neck no JVD. CVS irregular rate rhythm, Respiratory lungs clear to auscultation, no respiratory distress, no wheeze, no rhonchi. Gastrointestinal abdomen soft, non tender, bowel sounds audible Extremities no edema Neuro nonfocal Skin no rash psych appropriate affect Objective Data Active Medications Acetaminophen (Acetaminophen 325 Mg Tablet) 650 mg PO Q6H PRN PRN Reason: Pain, Mild (Pain Scale 1-3) Last Admin: 12/31/22 09:36 Dose: 650 mg Documented By: EDVIN Apixaban (Apixaban 5 Mg Tablet) 5 mg PO BID [facility] Last Admin: 12/31/22 09:32 Dose: 5 mg Documented By: EDVIN Atenolol (Atenolol 50 Mg Tablet) 50 mg PO BID [facility]; Protocol Last Admin: 12/31/22 09:32 Dose: 50 mg Documented By: EDVIN Benzonatate (Benzonatate 100 Mg Capsule) 100 mg PO TID PRN PRN Reason: Cough Digoxin (Digoxin 0.25 Mg Tablet) 0.25 mg PO ONCE ONE Stop: 12/31/22 16:31 Melatonin (Melatonin 3 Mg Tablet) 3 mg PO BEDTIME PRN PRN Reason: Insomnia Sodium Chloride (0.9 % Sodium Chloride Flush 3 Ml Syringe) [facility] Last Admin: 12/31/22 09:33 Dose: 3 ml Documented By: EDVIN Vitamin D (Cholecalciferol (Vitamin D3) 25 Mcg Tablet) 25 mcg PO DAILY [facility] Last Admin: 12/31/22 09:32 Dose: 25 mcg Documented By: EDVIN Labs 12/30/22 15:03 12/30/22 15:03 Assessment and Plan (1) CHF exacerbation: Status: Acute (2) Pulmonary embolism: Status: Acute (3) Atrial fibrillation: Status: Acute Plan 81-year-old female with history right-sided renal cell carcinoma s/p ablation 06/13, interstitial lung disease and pneumonitis with chronic hypoxemic respiratory failure on 2 L supplemental O2 with exertion and at night prn, newly diagnosed atrial fibrillation underwent cardioversion yesterday a.m. and developed shortness of breath last night presented to hospital due to worsening shortness of breath and hypoxia. # acute hypoxic respiratory failure due to acute diastolic heart failure patient admitted to telemetry unit treated with IV Lasix noted to have normal troponin EKG showed no acute ischemic changes, shortness of breath resolved patient appears euvolemic, seen by boiler tube reamer they recommend no further diuretics, as per Cardiology likely CHF due to atrial stunning post cardioversion,Recent echocardiogram December 01 showed EF 60-65% no evidence of regional wall motion abnormality, indeterminate diastolic function, normal right ventricular size and function. # new onset atrial fibrillation status post cardioversion 12/29 in normal sinus rhythm on admission but patient converted into atrial fibrillation with rapid RVR this a.m. Case discussed with Dr. Hernandez he recommend digoxin load , continue Eliquis b.i.d. and beta-blockers Dr Ryan will follow patient closely for rhythm control. # Hx of bilateral pulmonary embolism likely related to malignancy , continue Eliquis # right renal cell carcinoma -patient reports underwent ablation of the right kidney in 06/13 in [place], being followed at [facility] #ILD with pneumonitis -no acute exacerbation, continue home steroids, continue 2L oxygen at baseline for activity and at bedtime. DVT prophylaxis-Eliquis Full code Patient requires continued inpatient stay for management of atrial fibrillation with RVR requiring rate control and cardiac monitoring. Quality Stroke Does the patient have a stroke diagnosis?: No VTE Prior VTE?: No VTE Risk Level:: Medical - moderate - high VTE Device Contraindication: Treatment Not Indicated VTE Drug Contraindication: N/A - Med Ordered
[2022-12-31 15:47] VITALS: BP 125/85; PULSE 91; RESP 20; TEMP 36.8; O2SAT 93
[2022-12-31] MEDS: Digoxin 0.25 MG TABLET PO (18:03)
--- NOTE | 2022-12-31 18:58 | PC.NURSE ---
Floey Cath placed @1815 due to voiding trial failure, required 3 straight cath for bladder scans over 400 3 times in 24 hours. discussed with Md Rodriguez , hensley cath order in place.
[2022-12-31 19:47] VITALS: BP 152/94; PULSE 120; RESP 21; TEMP 37.3; O2SAT 96
[2022-12-31 23:24] VITALS: BP 123/77; PULSE 87; RESP 20; TEMP 36.5; O2SAT 96
[2023-01-01 03:02] VITALS: BP 138/80; PULSE 84; RESP 20; TEMP 36.5; O2SAT 91
[2023-01-01 08:00] VITALS: BP 145/89; PULSE 88; RESP 16; TEMP 37.1; O2SAT 93
[2023-01-01] MEDS: Apixaban 5 MG TABLET PO (08:45)
[2023-01-01] MEDS: 0.9 % Sodium Chloride Flush 3 ML SYRINGE IVFLUSH (08:45)
[2023-01-01] MEDS: Cholecalciferol (Vitamin D3) 25 MCG TABLET PO (08:45)
[2023-01-01] MEDS: atenoloL 50 MG TABLET PO (08:45)
--- NOTE | 2023-01-01 10:02 | PM.PNCARD ---
Subjective Subjective Date of Service: 01/01/23 Principal diagnosis: Atrial fibrillation, CHF Interval history: Patient feeling well. Back to baseline. Heart rate is not extremely well controlled although she has no symptoms. No palpitations. No lightheadedness, syncope. Oxygen levels are low but acceptable for her. Review of Systems Review of Systems Yes all other systems are reviewed and are negative Physical Exam Vital Signs: Last Vital Signs Temp 98.8 F 01/01/23 08:00 Pulse 88 01/01/23 08:00 Resp 16 01/01/23 08:00 BP 145/89 H 01/01/23 08:00 Pulse Ox 93 01/01/23 08:00 O2 Del Method Room Air 01/01/23 08:00 O2 Flow Rate 92 01/01/23 08:00 Oxygen Flow Rate 3 12/30/22 14:25 BMI result Body Mass Index 27.1 Const General: cooperative, comfortable, no acute distress, alert and awake Nutritional Appearance: overweight Orientation/consciousness: patient oriented x3 Limitations: no limitations HEENT Head: Yes normocephalic and Yes atraumatic Neck Neck: Yes trachea midline, Yes supple and Yes no JVD Resp Effort & Inspection: normal respiratory effort Auscultation: clear to auscultation bilaterally Cardio Jugular venous distension: no JVD Rate: tachycardic Rhythm: abnormal rhythm irregularly irregular Heart sounds: S1 normal heart sound present, S2 normal heart sound present, no click, no gallops, no murmurs and no rubs GI Auscultation: normal bowel sounds Skin General skin exam: no rashes or lesions noted Neuro General: patient oriented x3 and no focal motor deficits Extrem General: Yes no clubbing, cyanosis or edema Psych Appearance: grossly normal Objective Labs and Meds 12/30/22 15:03 12/30/22 15:03 Progress Note: A&P Assessment and plan (1) CHF exacerbation: Status: Acute Assessment and Plan: Patient with acute CHF failure most likely due to atrial stunning after cardioversion. She is doing well with 1 dose of diuretic. Clinically doing well. She has mild hypoxemia related to interstitial lung disease at this point time. Continue oxygen therapy as prescribed. Does not require ongoing treatment with Lasix at this point time. Will also perform an ischemic workup to rule out presence of significant CAD as a cause of her acute CHF. This will be done in near future. (2) Atrial fibrillation: Status: Acute Assessment and Plan: Recurrent atrial fibrillation status post cardioversion of antiarrhythmic drug therapy. Will pursue rate control for now on C-arm she feels. Add digoxin 0.25 mg to her regimen. Follow-up digoxin assay in 1 week. Will follow-up with myocardial perfusion imaging as above to evaluate use of class 1 C agents. Also will obtain Holter monitor next week. Follow up in the clinic in 2-3 weeks. Thank you for allowing me to partake in her care. Patient can be discharged home Time Spent With Patient Time: Total time managing care of this patient today ____ minutes. Progress Note: Quality Stroke Does the patient have a stroke diagnosis?: No Procedures Date of Service Date of Service: 01/01/23
[2023-01-01] MEDS: Digoxin 0.25 MG TABLET PO (10:57)
[2023-01-01 11:29] VITALS: BP 149/79; PULSE 82; RESP 16; TEMP 37.2; O2SAT 94
[2023-01-01 12:00] VITALS: BP 136/72; PULSE 88; RESP 16; TEMP 36.7; O2SAT 90
== END 2023-01-01 12:17 | disposition home or self-care (01) | DRG 175 ==
LOC: HO.ED 19:03 → HO.EDOVER 19:13 → HO.IMC 19:53
PROVIDERS: Admitting Provider Hospitalist; Emergency Provider Emergency Medicine; PCP Internal Medicine; Visit Provider Hospitalist
DX: I26.94 Multiple subsegmental thrombotic pulmonary emboli without acute cor pulmonale (principal); I50.31 Acute diastolic (congestive) heart failure; J96.01 Acute respiratory failure with hypoxia; C64.1 Malignant neoplasm of right kidney, except renal pelvis; I48.19 Other persistent atrial fibrillation; J96.11 Chronic respiratory failure with hypoxia; J84.89 Other specified interstitial pulmonary diseases; Z91.040 Latex allergy status; Z79.01 Long term (current) use of anticoagulants; Z79.52 Long term (current) use of systemic steroids; Z79.899 Other long term (current) drug therapy
CPT/HCPCS: 36415; 71045; 80048; 83880; 84484; 85025; 85379; 93005; 99285; J1940

== ENCOUNTER → 2022-12-30 15:39 | Outpatient (BNV) | payer MEDICARE, SELFPAY | PROVIDERS: Emergency Provider Emergency Medicine; PCP Internal Medicine; Visit Provider Hospitalist | DX: I50.9 Heart failure, unspecified (principal); I26.94 Multiple subsegmental thrombotic pulmonary emboli without acute cor pulmonale; I48.19 Other persistent atrial fibrillation | CPT/HCPCS: 99223; 99233; 99239 ==

== ENCOUNTER → 2022-12-30 17:52 | Outpatient (BNV) | payer MEDICARE, SELFPAY | PROVIDERS: Admitting Provider Hospitalist; Emergency Provider Emergency Medicine; PCP Internal Medicine; Visit Provider Internal Medicine Cardiovascular Disease | DX: I50.9 Heart failure, unspecified (principal); I48.19 Other persistent atrial fibrillation | CPT/HCPCS: 99222; 99233 ==

== ENCOUNTER → 2023-01-20 10:06 | Outpatient (REF) | payer MEDICARE, SELFPAY ==
--- NOTE | ~2023-01-20 | NM_ITS ---
Myocardial perfusion study Indication: Atrial fibrillation with heart failure symptoms to evaluate for myocardial ischemia Technique: The patient was brought in for a Lexiscan perfusion study on 02/08/2023. Patient performed low-level exercise and was injected 0.4 mg of Lexiscan intravenously. Within a minute of injection, 25 mCi of sestamibi was given intravenously. Images were obtained using the SPECT gamma camera interlaced with the gating device. Images were obtained in supine position. Resting perfusion study was performed on 02/09/2023. Patient was administered 25 mCi of sestamibi intravenously at rest. Images were then obtained in supine position. Images obtained with and without CT attenuation. Total DLP 153 mGy-cm Images were processed with the software and compared side to side in short axis, horizontal long axis and vertical long axis views. Findings: Both rest and stress perfusion study was somewhat suboptimal due to arms down position The stress perfusion study showed non attenuated images show mildly reduced uptake in the distal anterior, lateral wall of the LV myocardium. Remainder of the LV myocardium is normally perfused. Attenuation corrected images show normal uptake of radiotracer in all segments of LV myocardium. The gated study shows normal LV systolic function with calculated LVEF of 66%. LV cavity is normal in size. The gated study shows normal systolic wall thickening and contraction of segments. Resting study shows attenuation corrected normal uptake of tracer in all segments of LV myocardium. Gating at rest reveals normal systolic wall motion with ejection fraction at 64%. The findings are consistent with no clear reversible defect noted on attenuated corrected images suggestive wall normal myocardial perfusion. NM/NM cardiolite stress test Impression: 1. Myocardial perfusion imaging study shows likely normal myocardial perfusion 2. Gated LVEF is 66% 3. Transient ischemic dilatation not present EKG is nondiagnostic for ischemia
--- NOTE | 2023-01-20 10:10 | CA_ITS ---
Acquisition Time: 2023-01-20 10:09:28 Total Exercise Time: 00:02:00 Test Indications: HEART FAILURE AFIB Medications: ELIQUIS ATENOLOL PREDNISONE Protocol: LEXISCAN Max HR: 087 BPM 62% of Pred: 140 BPM Max BP: 158/090 mmHG Max Work Load: 1.0 METS Pharmacological stress test with Lexiscan injection, while sitting and kicking her legs, without anginal symptoms, with atrial fibrillation with controlled rate throughout test, with normotensive response to injection, with nondiagnostic EKG for ischemia. Nuclear images pending. Test reviewed with Dr Ryan. Referred By: Rob Ryan Overread By: SALMA NAVARRO
--- NOTE | 2023-01-20 10:10 | HM_ITS ---
* Total monitoring time 3 days. * Underlying rhythm is atrial fibrillation. Average ventricular rate 76/Min. Range 43 to 113/Min. * Rare ventricular ectopy. * No significant pauses or AV blocks. * No patient markers or events in diary. MTDD
== END ==
LOC: HO.CARD 10:06
PROVIDERS: PCP Internal Medicine; Visit Provider Internal Medicine Cardiovascular Disease
DX: I48.19 Other persistent atrial fibrillation (principal); I50.9 Heart failure, unspecified; J84.9 Interstitial pulmonary disease, unspecified
CPT/HCPCS: 78452; 93017; 93242; A9500; J0280; J2785

== ENCOUNTER → 2023-01-20 10:10 | Outpatient (BNV) | payer MEDICARE, SELFPAY | PROVIDERS: PCP Internal Medicine; Visit Provider Nurse Practitioner Family | DX: I48.91 Unspecified atrial fibrillation (principal) | CPT/HCPCS: 78452; 93016; 93018; 93244 ==

== ENCOUNTER 2023-02-09 11:22 | Outpatient (REF) | payer MEDICARE, SELFPAY ==
[2023-02-09 13:39] LABS: Digoxin < 0.2 ng/mL (0.8-2.0)
== END 2023-02-09 11:23 | disposition home or self-care (01) ==
LOC: HO.LAB 11:22
PROVIDERS: PCP Internal Medicine; Visit Provider Internal Medicine Cardiovascular Disease
DX: I48.19 Other persistent atrial fibrillation (principal); Z79.899 Other long term (current) drug therapy
CPT/HCPCS: 36415; 80162

== ENCOUNTER 2023-02-10 09:24 | Outpatient (AMB) | payer MEDICARE, SELFPAY ==
[2023-02-10 09:40] VITALS: BP 140/80; PULSE 88; BMI 25.1
--- NOTE | 2023-02-10 09:40 | MHC.OFFVIS ---
Intake Vital Signs 02/10/23 09:40 Height 5 ft 6 in Weight 155 lb 10.342 oz BMI 25.1 BP 140/80 H Blood Pressure Location Lt brachial Position Sitting Pulse 88 Intake Visit Reasons: 4 week f/u Allergies latex [LATEX] Allergy (Intermediate, Verified 02/10/23 09:42) RASH seasonal Allergy (Unknown, Uncoded 09/21/22 15:20) Anaphylaxis Medication List - Last Reconciled 02/10/23 by Marcy Durbin CELL BIOLOGIST-C apixaban (Eliquis DVT-PE Treat 30D Start) 5 mg PO BID atenolol 50 mg PO BID cholecalciferol (vitamin D3) 25 mcg PO DAILY digoxin 0.25 mg PO DAILY furosemide (Lasix) 20 mg PO DAILY losartan 50 mg PO DAILY HPI 4 week f/u HPI Details Sudha is an 82-year-old female with past medical history of hypertension, interstitial lung disease, newer atrial fibrillation, pulmonary embolism who presents for follow-up. Today she reports she has been feeling well recently. She is not noticing any heart palpitations at rest or with activity. She has only been doing light physical activity but hopes to resume pulmonary rehab in the near future. She does have some issues with shortness of breath on exertion. She wears her oxygen as needed and during the night. No presyncope, syncope, falls. No PND, orthopnea or edema. She has been taking Lasix mostly as needed. She reports frequent urination when she does take the Lasix and fears that she will get dehydrated she takes it daily. On last visit with her PCP losartan was added due to elevated blood pressure readings. She follows closely with PCP, Dr. Sutherland. FORMERLY [facility], [facility] Medical History Pulmonary embolism History of kidney disease Pulmonary nodule Renal cell cancer Renal cell carcinoma of right kidney Chronic respiratory failure with hypoxia Pneumonitis ILD (interstitial lung disease) Surgical History History of History of cholecystectomy Social History Household Members: None Housing: Condominium Do you presently have visiting nurse or other home services: No Patient Tobacco Use Status: Never used Tobacco Years Smoked: 5 Advance Directives Date on File: 12/01/22 service: No Review of Systems Const All systems reviewed & are unremarkable except as noted in HPI and below ENT Denies dizziness Card Denies chest pain, Denies chest pain at rest, Denies chest pain with activity, Denies rapid heart rate, Denies pedal edema, Denies edema, Denies leg edema, Denies lightheadedness, Denies palpitations, Reports dyspnea (wears O2 supplement as needed), Denies dyspnea on exertion and Denies orthopnea Resp Denies cough, Reports dyspnea (wears O2 supplement as needed) and Denies dyspnea on exertion GI Denies hematochezia and Denies change in stool character Musc Denies abnormal gait, Denies limited range of motion, Denies muscle cramps, Denies muscle weakness, Denies numbness, Denies radiating pain into limb, Denies stiffness and Denies tingling Neuro Denies abnormal gait, Denies dizziness, Denies numbness and Denies tingling Endo Denies palpitations Physical Exam Vital Signs: Last Vital Signs Pulse 88 02/10/23 09:40 BP 140/80 H 02/10/23 09:40 BMI result Body Mass Index 25.1 Const General: cooperative, healthy appearing, comfortable and no acute distress Orientation/consciousness: patient oriented x3 Neck Neck: Yes normal visual inspection and Yes no JVD Chest Chest palpation & inspection: normal inspection of the chest Resp Effort & Inspection: normal respiratory effort Auscultation: crackles (each base), no rhonchi and no wheezes Cardio Jugular venous distension: no JVD Rate: regular rate Heart sounds: S1 normal heart sound present, S2 normal heart sound present, no murmurs and no rubs Neuro General: patient oriented x3 Extrem General: Yes normal to inspection and No no pedal edema Psych Appearance: grossly normal Mental Status: mental status grossly normal Speech and movement: Normal speech and movement present Assessment & Plan Assessment & Plan (1) Atrial fibrillation: Code(s): I48.91 - Unspecified atrial fibrillation Qualifiers: Atrial fibrillation type: persistent (not longstanding) Qualified Code(s): I48.19 - Other persistent atrial fibrillation Plan: Newer finding of atrial fibrillation. She was initially treated with rate control then underwent a cardioversion on 12/29/2022 with successful conversion to sinus rhythm. Two days later she was admitted to [facility] with increased shortness of breath and hypoxia. She was treated for congestive heart failure with IV diuretics. She was noted to have recurrent atrial fibrillation. She was taken off Multaq and decision was made to treat her with heart rate control. She was started on digoxin and continued on her usual atenolol. A Holter monitor was done on 01/20/2023 for 3 days showing atrial fibrillation with average heart rate 76, heart rate range 43 to 113. A nuclear stress test was done on 02/09/2023 showing normal myocardial perfusion imaging. Last echo showed normal EF and normal RV. Today she denies having any heart palpitations and breathing is stable. She actually states she feels better now than she had been in a long time. Heart rate seems controlled, heart tones irregular which is consistent with atrial fibrillation. Will have her continue on current med management with atenolol and digoxin. Digoxin level done yesterday was 0.2. She is on Eliquis for anticoagulation. No bleeding issues reported. Continue without change. She hopes to resume pulmonary rehab in the near future. As she increases physical activity instructed to notify this office if she is having issues with heart palpitations or elevated heart rates. Cardiology follow-up in 6 months, sooner if needed (2) Chronic respiratory failure with hypoxia: Code(s): J96.11 - Chronic respiratory failure with hypoxia Plan: History of interstitial lung disease. Wears oxygen as needed during the daytime and during the night. She did have episode of Congestive heart failure as reported above. At this point she does not appear fluid overloaded on examination. She does have some fine rales in her bases which is consistent with interstitial lung disease. She has been taking her Lasix as needed which she can continue. Instructed to take if she develops any leg edema, increasing shortness of breath, PND, orthopnea. (3) ILD (interstitial lung disease): Code(s): J84.9 - Interstitial pulmonary disease, unspecified Plan: Followed by Dr. Monge (4) Hypertension: Code(s): I10 - Essential (primary) hypertension Plan: Initial blood pressure 140/80, recheck done by me 142/88. She tells me home blood pressure is consistently elevated with systolic in the 150s and 160s. On last visit with her PCP losartan 25 mg daily was added. She has labs due at her PCP office and will obtain in the next day or 2. She has follow-up with her PCP in April. Due to persistent elevation in her reading I will increase her losartan up to 50 mg daily. I will for this note to her PCP for his review. Continue periodic home blood pressure monitoring. Follow low-salt diet, ongoing weight control and increase physical activity as tolerated. Plan Time spent on chart review, documentation, interview and assessment Medications: New losartan 50 mg PO DAILY 30 tabs 5RF Coding Level of Care Code Est Pt Level 4 (10514) Diagnoses Persistent atrial fibrillation I48.19 Atrial fibrillation type: persistent (not longstanding) Chronic respiratory failure with hypoxia J96.11 ILD (interstitial lung disease) J84.9 Hypertension I10 Time Spent (min) 28
== END 2023-02-10 10:22 | disposition home or self-care (01) ==
PROVIDERS: PCP Internal Medicine; Visit Provider Nurse Practitioner Family
DX: I48.19 Other persistent atrial fibrillation (principal); J96.11 Chronic respiratory failure with hypoxia; J84.9 Interstitial pulmonary disease, unspecified; I10 Essential (primary) hypertension
CPT/HCPCS: 99214

== ENCOUNTER → 2023-02-10 09:24 | Outpatient (BNVA) | payer MEDICARE, SELFPAY | PROVIDERS: PCP Internal Medicine; Visit Provider Nurse Practitioner Family | DX: I48.19 Other persistent atrial fibrillation (principal); I10 Essential (primary) hypertension; J96.11 Chronic respiratory failure with hypoxia; J84.9 Interstitial pulmonary disease, unspecified | CPT/HCPCS: 99212 ==

== ENCOUNTER 2023-03-16 10:35 | Outpatient (REF) | payer MEDICARE, SELFPAY ==
--- NOTE | ~2023-03-16 | CT_ITS ---
EXAMINATION: CT ANGIOGRAM OF THE CHEST WITH AND WITHOUT CONTRAST (CT PULMONARY ANGIOGRAM FOR PE) CLINICAL INFORMATION: Reason for Exam I26.99 - Other pulmonary embolism without acute cor pulmonale COMPARISON: 11/30/2022 TECHNIQUE: Prior to contrast administration, noncontrast localization images were obtained. Subsequently, multidetector volumetric imaging was performed from the thoracic inlet to below the diaphragms following the administration of 80 mL Omnipaque 350 intravenous contrast. No contrast reaction reported Sagittal, coronal, and MIP oblique sagittal reformatted images were obtained on the CT workstation, uploaded to PACS, and reviewed. This CT examination was performed using dose optimization techniques as appropriate, variously including the following: *Automated exposure control *Adjustment of mA and/or kV according to patient size (this includes techniques or standardized protocols for targeted exams where dose is matched to indication/reason for exam; i.e. extremities or head) *Use of iterative reconstruction technique Total exam dose-length product 143 mGy-cm FINDINGS: WORM PACKER: Mild bibasilar atelectasis. Cholecystectomy clips. QUALITY OF STUDY/CONTRAST BOLUS: Satisfactory. PULMONARY ARTERIES: Nonenlarged main pulmonary arteries. No acute pulmonary thromboembolism. Irregular, narrowed right lower lobe pulmonary artery without homogeneous contrast opacification. This is a region of previous pulmonary embolism on 11/30/2022 study, likely old residual thrombus. Tiny filling defect in a left lower lobe branch, is also likely residual from previous pulmonary embolism. Both findings are seen on 5:22. LUNGS: Trachea and bronchi are patent. Diffuse mosaic attenuation to the lung parenchyma. No consolidations. Scattered atelectasis. No suspicious pulmonary nodules. PLEURA: No pleural effusion or pneumothorax. MEDIASTINUM: Stable thyroid. Nonspecific mediastinal lymph nodes. No pathologic lymphadenopathy. Nonenlarged heart. No pericardial effusion. No ventricular bowing or contrast reflux into the inferior vena cava. Nonaneurysmal aorta with atherosclerotic calcifications. CORONARY ARTERY CALCIFICATION: None visualized on this study. CHEST WALL/AXILLA: No axillary or internal mammary lymphadenopathy. OSSEOUS STRUCTURES: No acute or suspicious osseous abnormality. UPPER ABDOMEN: Unremarkable. No reflux of contrast into the hepatic veins to suggest elevated right heart pressures. CT/CT angio chest PE protocol IMPRESSION: No CT evidence of acute pulmonary thromboembolism. Likely residual/organized bilateral lower lobe thrombus following 11/30/2022 CT demonstrating bilateral acute lower lobe pulmonary emboli. Mosaic attenuation to the lung parenchyma. Unclear if on the basis of small airway disease, vascular disease, parenchymal disease or combination thereof. VTE: Negative for acute pulmonary embolism.
[2023-03-16] MEDS: iohexoL 350 MG/ML 75 ML INFUS..BTL 65 ML IV (11:36)
[2023-03-17 08:41] LABS: Creatinine POC 0.7 mg/dL (0.5-1.4); GFR POC > 60
== END 2023-03-16 10:36 | disposition home or self-care (01) ==
LOC: HO.CT 10:35
PROVIDERS: PCP Internal Medicine; Visit Provider Hospitalist
DX: I26.99 Other pulmonary embolism without acute cor pulmonale (principal)
CPT/HCPCS: 71275; 82565; Q9967

== ENCOUNTER 2023-03-17 07:57 | Outpatient (AMB) | payer MEDICARE, SELFPAY ==
[2023-03-17 08:14] VITALS: BMI 25.0
--- NOTE | 2023-03-17 08:14 | MHC.OFFVIS ---
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 The patient describes her pain as achy in nature. The patient states that several years ago she did have a ?frozen shoulder?. The patient did do [id number] exercises at that time which improved her discomfort. She has had stiffness in her left shoulder for the last few years. The patient states that her left shoulder pain was aggravated when she was in the hospital and underwent an EKG last November. Patient denies any fevers or chills. She wishes to avoid surgery if possible. Allergies latex [LATEX] Allergy (Intermediate, Verified 03/17/23 08:20) RASH seasonal Allergy (Unknown, Uncoded 09/21/22 15:20) Anaphylaxis Medication List - Last Reconciled 03/17/23 by Giovany Abraham MD apixaban (Eliquis) 5 mg PO BID atenolol 50 mg PO BID cholecalciferol (vitamin D3) 25 mcg PO DAILY digoxin 0.25 mg PO DAILY furosemide (Lasix) 20 mg PO DAILY losartan 50 mg PO DAILY [facility] Medical History (Updated 03/17/23 @ 08:49 by Giovany Abraham MD) Pulmonary embolism History of kidney disease Pulmonary nodule Renal cell cancer Renal cell carcinoma of right kidney Chronic respiratory failure with hypoxia Pneumonitis ILD (interstitial lung disease) Surgical History (Updated 03/17/23 @ 08:27 by Nina Neely CMA) History of right knee surgery (~10/2016) History of History of cholecystectomy Social History Household Members: None Housing: Condominium Do you presently have visiting nurse or other home services: No Patient Tobacco Use Status: Never used Tobacco Years Smoked: 5 Advance Directives Date on File: 12/01/22 service: No Physical Exam Vital Signs: BMI result Body Mass Index 25.0 Const Other: Well-nourished well-developed very friendly female awake alert and oriented x3 in no acute distress Extrem Other: Bilateral upper extremity examination shows good capillary refill, no skin lesions noted, normal sensation light touch Left shoulder examination shows decreased active and passive range of motion when compared to her right shoulder, mild crepitus with range of motion, positive impingement signs, 4+ out of 5 strength with supraspinatus testing, no instability Office Procedures Joint Injection/Drain Joint Injection/Drain Primary Site: left shoulder Prep: site was prepped using aseptic technique Injected: 40 mg of, DepoMedrol and 1% plain lidocaine Procedure: The patient tolerated the procedure well Coding - Large joint Procedure code (CPT) selection complete Results Reviewed Results Reviewed: X-rays of the patient's left shoulder show moderate glenohumeral joint degenerative changes, a type 2 acromion, severe acromioclavicular joint narrowing, no acute bony abnormalities Assessment & Plan Assessment & Plan (1) Arthritis of left shoulder region: Code(s): M19.012 - Primary osteoarthritis, left shoulder Plan Ms. Meek presents with left shoulder pain and stiffness due to impingement syndrome, glenohumeral joint arthritis and adhesive capsulitis. I had a lengthy discussion with the patient regarding the treatment options. The patient wishes to hold off on surgery for as long as possible. I agree with this plan. The risks and benefits of a left shoulder cortisone injection were discussed at length with the patient. The patient wished to proceed. She tolerated the injection well. She will begin formal physical therapy as per your instructions over the next week. The do's and don'ts of lifting were discussed at length with the patient. She will contact me prior to her follow-up appointment in 3 months should any questions or concerns arise. Feel free to call me at any time should questions regarding her orthopedic management arise. Thank you very much for asking me to see this very friendly patient. I spent 22 minutes in reviewing the patient's records and imaging studies, seeing the patient and documenting in the medical record. Orders: Orders XR shoulder LT min 2V Today M25.512 - Pain in left shoulder AMB Joint Injection/Aspiration Today M19.012 - Primary osteoarthritis, left shoulder Coding Level of Care Code New Pt Level 2 (42614) Diagnoses Arthritis of left shoulder region M19.012 CPT Codes Coding - 56911 Large joint: 54625 - Large joint ([id number])
== END 2023-03-17 08:48 | disposition home or self-care (01) ==
PROVIDERS: PCP Internal Medicine; Visit Provider Orthopaedic Surgery
DX: M19.012 Primary osteoarthritis, left shoulder (principal)
CPT/HCPCS: 20610; 99202

== ENCOUNTER 2023-03-17 14:52 | Outpatient (REF) | payer MEDICARE, SELFPAY ==
--- NOTE | ~2023-03-17 | XR_ITS ---
EXAMINATION: XR SHOULDER, LEFT CLINICAL INFORMATION: Left shoulder pain COMPARISON: None available. TECHNIQUE: AP external rotation, scapular Y views of the left shoulder. FINDINGS: BONES: Bony structures are intact. Prominent ring osteophyte formation is seen in inferior left humeral head. There is no focal bone destruction or periosteal reaction seen. JOINTS: Alignment of joints is normal. SOFT TISSUE: Soft tissue is normal. No radiopaque foreign body or abnormal air collection is seen. XR/XR shoulder LT min 2V IMPRESSION: 1. Left glenohumeral joint osteoarthritis is present. 2. No fracture or dislocation or signs of osteomyelitis are found.
== END 2023-03-17 14:53 | disposition home or self-care (01) ==
LOC: HO.HOSX 14:52
PROVIDERS: Visit Provider Orthopaedic Surgery
DX: M19.012 Primary osteoarthritis, left shoulder (principal)
CPT/HCPCS: 20610; 73030; 99202; J1020

== ENCOUNTER 2023-04-22 14:14 | Outpatient (AMB) | payer MEDICARE, SELFPAY ==
--- NOTE | 2023-04-22 14:18 | A.OFFVIS_ITS ---
Intake Vital Signs 04/22/23 14:19 Height 5 ft 2 in Weight 155 lb BMI 28.3 BP 118/70 Blood Pressure Location Lt brachial Position Sitting Pulse 89 Pulse Source Pulse Oximeter Pulse Oximetry (%) 94 Oxygen Delivery Method Room Air Intake Visit Reasons: pulm embolism Allergies latex [LATEX] Allergy (Intermediate, Verified 04/22/23 14:21) RASH seasonal Allergy (Unknown, Uncoded 04/22/23 14:21) Anaphylaxis HPI HPI Comments History of Present Illness Details The patient is a 82 year woman who was referred to Pulmonary to evaluate abnormal CT scan of the chest. The patient states that she has been feeling otherwise well. Denies any significant shortness of breath or cough or any chest discomfort. However, she does state that [place] [facility] [facility] and she does not do a lot of walking. She went to see her primary care doctor who checked her pulse oximeter and was noted to be low. Therefore she had additional imaging studies including a CT scan of the chest that was found to be abnormal. I did personally viewed the CT scan demonstrating areas of mosaic pattern is of ground-glass opacities and also some reticular changes primarily in the lingula. The patient denies any significant exposure to any fumes or toxins. Denies any hobbies with any exposures to organic or inorganic dusts. She denies any exposure to any farm animals or farm or hay. She does not have any pets. She denies any mold in the household. The interesting part of the story is that the patient has a identical twin who lives in [place]. At the same time that she was undergoing a CT scan of the chest for further ángela luation of underlying interstitial lung disease the patient is identical sister was also going to the same process. She is also going to see a specialist. The details of that evaluation are not available at this time. She denies any significant rashes or joint pains or muscle discomfort or muscle weakness. During the office visit we did go for 6 minute walk test. The patient did desaturate down to 88%. She had a dyspnea score of 3/10 and did go up to 4-10 when she was a little more hypoxic. We did rest for a minute and her oxygen improved to the low 90s. The patient did qualify for oxygen but she does not 1 at this time. 12/03/2021 the patient is here for a pulmonary follow-up visit. She is here with her sister. She did take the prednisone. The prednisone made her feel better although did not really help her breathing symptoms. She really denies any significant dyspnea on exertion. She walks regularly and also uses a recumbent bike and denies any significant shortness of breath. We did review her blood work which was relatively negative except for a positive RD with the very low titer of 01:40. There is no real history of connective tissue conditions in the family. There is a history pulmonary fibrosis. Both her mother and also her sister that is being evaluated at this time. Her last CT scan did demonstrate reticular changes in addition to ground-glass opacities. 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 During the visit the patient did have evidence of bilateral crackles and her 6 minutes walk test she desaturated down to about 86%. Her dyspnea score was 5/10 during. based on that explained to the patient that she needs to start oxygen supplementation with activity. She is a bit reluctant but she is willing to try for now. Will plan to repeat the CT scan and then follow up with a painful to see you if there is no significant progression of the pulmonary fibrosis. With talk about considering all to have a biopsy although patient is at this point reluctant to do so. Would not be unreasonable to keep the patient on small dose of prednison e for that reason. Indeed she has worsening fibrotic changes using wanted fibrotic agent would also be an option. 01/12/2022 the patient is here with her daughter for pulmonary follow-up visit. She has been on the 10 mg of prednisone. She is concerned because of the adverse effects of the medication and affecting her sleep. We did keep her on the prednisone in view of the elevated RD and also the elevation in the eosinophils which may manifest with an interstitial process. Specially since she did have some areas of ground-glass opacities suggesting pneumonitis. The patient however denied a see any significant improvement or difference. She did have a repeat CT scan of the chest and we personally reviewed that together. We also compared to her last CT scan that she had several months back. Appears to be some interval increase in the degree of reticulations and pulmonary fibrosis primarily on the left lung more than the right. She still has areas of ground-glass opacities in addition to mosaic pattern. No clear etiology for the interstitial lung disease based on the blood work. The patient is not interested in pursuing any invasive diagnostic interventions such as biopsies. Clinically the patient is doing well and she denies any respiratory symptoms at all. All this came about because she was noted to have an abnormal CT scan when she was referred to Pulmonary. She did have 2 6 minutes walk test both that were consistent with hypoxia qualify for oxygen. The patient also had an overnight oximetry demonstrating significant hypoxia while sleeping at least for close to 3 hours for she spent below 88%. Therefore the patient needs to continue using the oxygen with activity and also at nighttime while sleeping. She is adamant that she has wants to get an [employer] device portable oxygen concentrator. Will go ahead and fill out some paperwork in order for her to receive that. the patient is wondering if she is going to have to stay on the oxygen. I did recommend that she continue to use it for now and we will retest her once she returns in . Patient is going to be weaning off the prednisone at this time. And the patient is not interested in any antifibrotic therapy at this time. Based on her clinical presentation during the next visit we can discuss further anti fibrotic therapy if she would like. Patient does have a lot of questions about her condition and the fact that she is fairly asymptomatic. The fact that her 20 sister also found to have some interstitial lung changes which she does not require oxygen and she is questioning the whole process. I can only tolerate that we have tested her multiple times and all times have demonstrated evidence of hypoxia even on the day of presentation the patient is stands that using the oxygen will help her with her organ function including heart brain and other end-organ functions. Her her daughter was wondering about a diagnosis next Plain to her for now based on the fact that there is some progression the possibility of idiopathic pulmonary fibrosis needs to be in differential. Explained to the patient and the daughter that with the idiopathic pulmonary fibrosis the fibrosis is progressive. Therefore, will continue to monitor for any progression of disease. 05/06/2022 the patient is here for a pulm onary preoperative evaluation. Overall the patient has been doing about the same from a respiratory status. She continues use the oxygen with activity and sleep. She denies any worsening shortness breath or any new respiratory complaints. She denies any evidence of any active connective tissue disease. She has been off all corticosteroid therapy. She was found to have a renal mass. Concerning for malignancy. Now after being evaluated by Urology see felt that she requires full nephrectomy. Because of her underlying respiratory disease stable also recommending ablation. We did review her spirometry also her PFTs from last year in addition to her 6 minutes walk test. Based on this the patient does have increased risk for perioperative pulmonary complications. However, she is medically optimize any condition is not worsening. Therefore, I do believe that she will tolerate general anesthesia and will tolerate her surgery. She will have increased risks including further hypoxia in addition to risk for pneumonia and atelectasis. Currently she is medically optimized from a pulmonary standpoint. She does not need any bronchodilator therapy. She is using her oxygen effectively. After she recovers from her surgery will reassess her underlying interstitial lung disease with a repeat CT scan and PFTs. At that point we can decide if there is any evidence of any progression to consider small dose steroids versus antifibrotic therapies. 09/21/2022 the patient is here for pulmonary follow-up visit. She recovering well from her surgery. She did have increased shortness of breath after surgery. She did follow-up in the office and was reassuring that everything was okay. The patient has been using the oxygen a little bit more often specially after surgery. she was having issues with high blood pressure she was started on a new blood pressure medication. After the medication she noticed that oxygen actually dropped to 84% which became very concerning for her. Therefore she stopped that medicine which was amlodipine. Seems that her blood pressure is better at this time. The patient also underwent a CT scan of the chest which I personally reviewed with her and her daughter. It appears some slight increase in the reticular changes primarily in the left side. There is also evidence of ground-glass opacities suggestion a component of inflammation or likely subtle scarring. Patient does have a history of slightly elevated connective tissue disease laboratory suggesting the possibility of connective tissue disease related pulmonary fibrosis. She had been on prednisone before and she did tolerated fairly well. She is willing to try smaller dose to see if she can tolerated and try to minimize progression of the scarring. Another option is to consider antifibrotic agent specially with slight worsening of d isease. She is going to consider this as well. Will go ahead and start her on therapy with prednisone 10 mg daily and she is going to taper down to the lowest most effective dose which I hope is going to be 10 mg every other day. She is going to monitor closely her oxygen supplementation. Also to note that she does have a twin with very similar condition and she is also now on a small dose of prednisone. She is reassured I am also reassured that the amount of progression appears to be fairly minimal in a year's time. We did talk about pulmonary rehabilitation. The patient would really benefit from rehabilitation at this time specially now that she is recovering from her renal cell cancer surgery. 12/23/2022 the patient is here for a pulm onary follow-up visit. Apparently she was hospitalized earlier this month after developing significant tachycardia while at pulmonary rehab. She was referred down to the [facility] ER where she was diagnosed with atrial fibrillation and also had a CTA demonstrating pulmonary emboli. Therefore the patient was admitted to the hospital. She was evaluated by Cardiology. She has been on Eliquis since that hospitalizations. Her oxygen requirements are about the same. I did review her CT scan of the chest. She does have significant mosaic pattern a little bit more than before. In addition to that the pulmonary emboli noted right more than left. The patient also has a nodular density measuring around a cm in the right upper lobe area. The patient is also scheduled to undergo and MRI coming up for history of renal cancer. She continues on the prednisone every other day. At this point will continue with that does specially since she is concerned about the potential adverse effects of prednisone. she continues in a trial fibrillation but she is rate controlled. At this point the patient will continue with the Eliquis and her respiratory therapy. The patient will undergo a repeat CTA in 3 months' time to assess the resolution of the clots in addition to that to follow-up with the 1 cm subsolid nodular density in the right upper lobe. 04/22/2023 the patient is here for a pulmonary follow-up visit. The patient overall has been feeling well. She did stop the prednisone as she was concerned about the adverse effects. Still having dyspnea on exertion [id number] severity. She does use her oxygen with sleep and also with activity. She has a POC. She was participating in the pulmonary rehabilitation but then started developing issues with atrial fibrillation and also shoulder issues. She is c urrently working with orthopedic surgery and Cardiology. At this point though she is doing better and she is able to go back to pulmonary rehabilitation at this time. She is still getting physical therapy at home for her shoulder so therefore she would have to wait until that is completed. The patient did have a CT scan of the chest that I personally reviewed with her. The patient does have evidence of mosaic pattern suggesting air trapping. Appears to have gotten slightly more pronounced. Maybe the fact that she has no longer on prednisone. The interstitial lung disease looks about the same. Therefore we can hold off on the idea of Ofev. The patient is agreeable to starting a inhaled corticosteroid. The patient is going to be having an MRI of the abdomen to re-evaluate her history of renal cancer. We were monitoring 1 pulmonary nodule that was in the right hemithorax. However, it does not appear to be present and her current CT scan which is reassuring. Otherwise the patient is doing well. Will plan to follow-up in 6 months. [facility] Medical History (Updated 04/24/23 @ 21:59 by Travis Monge MD) Pulmonary embolism History of kidney disease Pulmonary nodule Renal cell cancer Renal cell carcinoma of right kidney Chronic respiratory failure with hypoxia Pneumonitis ILD (interstitial lung disease) Surgical History (Updated 03/17/23 @ 08:27 by Nina Neely CMA) History of right knee surgery (~10/2016) History of History of cholecystectomy Social History Household Members: None Housing: Condominium Do you presently have visiting nurse or other home services: No Patient Tobacco Use Status: Never used Tobacco Years Smoked: 5 Advance Directives Date on File: 12/01/22 service: No Review of Systems Const Denies fever(s) and Denies night sweats Eyes Denies change in vision ENT Denies dizziness Card Denies chest pain, Reports palpitations, Denies dyspnea and Reports dyspnea on exertion Resp Denies chest congestion, Denies cough, Denies dyspnea, Reports dyspnea on exertion and Denies wheezing GI Reports no additional complaints Reports as per HPI Musc Reports as per HPI, Reports myalgias, Reports arthralgias and Reports limited range of motion Skin/Breast Denies rash Neuro Reports no additional complaints and Denies dizziness Endo Reports palpitations Aller/Immun Denies wheezing Physical Exam Vital Signs: Last Vital Signs Pulse 89 04/22/23 14:19 BP 118/70 04/22/23 14:19 Pulse Ox 94 04/22/23 14:19 Oxygen Delivery Method Room Air 04/22/23 14:19 BMI result Body Mass Index 28.3 Const General: comfortable HEENT Head: Yes normal to inspection Neck Neck: Yes supple Chest Chest palpation & inspection: normal inspection of the chest Resp Effort & Inspection: normal respiratory effort Auscultation: rales bilateral in the mid lung sharp, no rhonchi and diminished lung sounds Cardio Rate: regular rate and tachycardic Rhythm: abnormal rhythm Heart sounds: S1 normal heart sound present and S2 normal heart sound present GI Auscultation: normal bowel sounds General: Yes no CVA tenderness Back/Spine/Pelvis Back: no CVA tenderness Skin General skin exam: no rashes or lesions noted Extrem General: Yes no clubbing, cyanosis or edema Assessment & Plan Assessment & Plan (1) Pneumonitis: Code(s): J18.9 - Pneumonia, unspecified organism (2) ILD (interstitial lung disease): Code(s): J84.9 - Interstitial pulmonary disease, unspecified (3) Chronic respiratory failure with hypoxia: Code(s): J96.11 - Chronic respiratory failure with hypoxia (4) Pulmonary embolism: Code(s): I26.99 - Other pulmonary embolism without acute cor pulmonale Qualifiers: Pulmonary embolism type: multiple subsegmental (without acute cor pulmonale) Qualified Code(s): I26.94 - Multiple subsegmental pulmonary emboli without acute cor pulmonale (5) Atrial fibrillation: Code(s): I48.91 - Unspecified atrial fibrillation Qualifiers: Atrial fibrillation type: persistent (not longstanding) Qualified Code(s): I48.19 - Other persistent atrial fibrillation (6) Renal cell cancer: Comment: Awaiting MRI, RUL pulmonary nodule resolved Code(s): C64.9 - Malignant neoplasm of unspecified kidney, except renal pelvis Qualifiers: Laterality: unspecified laterality Qualified Code(s): C64.9 - Malignant neoplasm of unspecified kidney, except renal pelvis (7) Pulmonary nodule: Code(s): R91.1 - Solitary pulmonary nodule Plan Continue oxygen 2L pulse/cont with activity and 2L with sleep. stopped Prednisone start Arnuity daily repeat Bloodwork restart pulmonary rehab after completing PT continue Eliquis, likely life long consider anti fibrotic agents (OFEV) F/U 6 months Orders: Orders Complete Blood Count Auto Diff 04/22/23 J18.9 - Pneumonia, unspecified organism, J84.9 - Interstitial pulmonary disease, unspecified Hypersensitive Pneumonitis Prf 04/22/23 J18.9 - Pneumonia, unspecified organism, J84.9 - Interstitial pulmonary disease, unspecified, R91.8 - Other nonspecific abnormal finding of lung field Erythrocyte Sedimentation Rate 04/22/23 J18.9 - Pneumonia, unspecified organism, J84.9 - Interstitial pulmonary disease, unspecified RD Reflex Titer and Pattern 04/22/23 J18.9 - Pneumonia, unspecified organism, J84.9 - Interstitial pulmonary disease, unspecified Immunoglobulin E 04/22/23 J18.9 - Pneumonia, unspecified organism, J84.9 - Interstitial pulmonary disease, unspecified Anti DNA DS Antibody 04/22/23 J18.9 - Pneumonia, unspecified organism, J84.9 - Interstitial pulmonary disease, unspecified Medications: New fluticasone furoate 100 mcg/actuation (Arnuity Ellipta) 1 inh inhalation DAILY 30 days 30 ea 11RF Coding Level of Care Code Est Pt Level 4 (02403) Diagnoses Pneumonitis J18.9 ILD (interstitial lung disease) J84.9 Chronic respiratory failure with hypoxia J96.11 Multiple subsegmental pulmonary emboli without acute cor pulmonale I26.94 Pulmonary embolism type: multiple subsegmental (without acute cor pulmonale) Persistent atrial fibrillation I48.19 Atrial fibrillation type: persistent (not longstanding) Renal cell carcinoma, unspecified laterality C64.9 Laterality: unspecified laterality Pulmonary nodule R91.1 Time Spent (min) 19
[2023-04-22 14:19] VITALS: BP 118/70; PULSE 89; O2SAT 94; BMI 28.3
== END 2023-04-22 14:53 | disposition home or self-care (01) ==
PROVIDERS: PCP Internal Medicine; Visit Provider Hospitalist
DX: I26.94 Multiple subsegmental thrombotic pulmonary emboli without acute cor pulmonale (principal); J84.9 Interstitial pulmonary disease, unspecified; J96.11 Chronic respiratory failure with hypoxia; R91.1 Solitary pulmonary nodule; I48.19 Other persistent atrial fibrillation
CPT/HCPCS: 99214

== ENCOUNTER → 2023-04-22 14:14 | Outpatient (BNVA) | payer MEDICARE, SELFPAY | PROVIDERS: PCP Internal Medicine; Visit Provider Hospitalist | DX: J18.9 Pneumonia, unspecified organism (principal); J84.9 Interstitial pulmonary disease, unspecified; J96.11 Chronic respiratory failure with hypoxia; R91.1 Solitary pulmonary nodule; I26.94 Multiple subsegmental thrombotic pulmonary emboli without acute cor pulmonale; I48.19 Other persistent atrial fibrillation; C64.9 Malignant neoplasm of unspecified kidney, except renal pelvis | CPT/HCPCS: 99212 ==

== ENCOUNTER 2023-05-19 12:39 | Day surgery (SDC) | payer MEDICARE, SELFPAY ==
[2023-05-19 13:13] VITALS: BP 171/96; PULSE 84; RESP 16; TEMP 37.1; O2SAT 92; BMI 31.0
--- NOTE | 2023-05-19 13:50 | P.CONAN_ITS ---
Documented by User: Delphine Dukes NP 05/18/23 10:49 HPI - Anesthesia Eval Consult details Narrative: 82yo F for Colonoscopy ? Eliquis for afib, PE - per surgical H&P, transitioning to coumadin with lovenox ILD with O2 prn New onset afib 2022. Per [facility] cardiology office visit 01/2023, stable for 6 month f/u. s/p cardioversion 12/2022, unsuccessful and transient CHF after PMFSH Active Problems Active Problems: All Active Problems (Updated 04/24/23 @ 21:59 by Travis Monge MD) Arthritis of left shoulder region (Acute) Left shoulder pain (Acute) Hypertension (Acute) Atrial fibrillation (Acute) Pulmonary nodule (Acute) Renal cell cancer (Acute) Pneumonitis (Acute) ILD (interstitial lung disease) (Acute) Past Medical History Medical History (Updated 04/24/23 @ 21:59 by Travis Monge MD) Pulmonary embolism History of kidney disease Pulmonary nodule Renal cell cancer Renal cell carcinoma of right kidney Chronic respiratory failure with hypoxia Pneumonitis ILD (interstitial lung disease) Family History Family history of problems with anesthesia: No Surgical History Surgical History History of right knee surgery (~10/2016) History of History of cholecystectomy History of Problems with Anesthesia: No Social History Social History Household Members: None Housing: [facility] Do you presently have visiting nurse or other home services: No Patient Tobacco Use Status: Former Tobacco user Tobacco use type: Cigarette Years Smoked: 5 Smoked in Last 30 Days: No Use of substances other than those prescribed or required for medical reasons: No Are you DNR?: No Advance Directives: No Advance Directives Information Provided: Yes Advance Directives Date on File: 12/01/22 service: No Meds Allergies Allergy/AdvReac Type Severity Reaction Status Date / Time latex [LATEX] Allergy Intermediate RASH Verified 04/22/23 14:21 seasonal Allergy Intermediate Sneezing Uncoded 05/19/23 13:21 Home Medications Medication Instructions Recorded Confirmed Last Taken Type cholecalciferol (vitamin D3) 25 25 mcg PO DAILY 10/22/21 05/19/23 12/30/22 History mcg (1,000 unit) capsule atenolol 25 mg tablet 50 mg PO BID 12/23/22 05/19/23 05/19/23 History Exam Pertinent Lab Results Pertinent Lab Results: Laboratory Tests 12/30/22 15:03 WBC 11.1 H Hgb 13.1 Hct 40.4 Plt Count 186 Sodium 141 Potassium 3.7 Chloride 107 Carbon Dioxide 26 BUN 14 Creatinine 0.71 Narrative Narrative: EKG 12/2022 Vent. Rate : 108 BPM Atrial Rate : 000 BPM P-R Int : 000 ms QRS Dur : 080 ms QT Int : 380 ms P-R-T Axes : 000 061 058 degrees QTc Int : 509 ms Atrial fibrillation with rapid ventricular response ST & T wave abnormality, consider anterior ischemia Abnormal ECG When compared with ECG of 30-DEC-2022 15:24, Atrial fibrillation has replaced Sinus rhythm Heart rate has increased Holter 12/2022 * Total monitoring time 3 days. * Underlying rhythm is atrial fibrillation. Average ventricular rate 76/Min. Range 43 to 113/Min. * Rare ventricular ectopy. * No significant pauses or AV blocks. * No patient markers or events in diary. ECHO 11/2022 Conclusions: - Normal left ventricular size and systolic function. There is moderately increased left ventricular wall thickness. The visually estimated ejection fraction is between 60-65%. - Normal right ventricular cavity size and systolic function. - There is mild to moderate mitral valve regurgitation. - There is mild dilatation of the ascending aorta measuring 3.50 cm. NM cardiolite stress test 12/2022 Impression: 1. Myocardial perfusion imaging study shows likely normal myocardial perfusion 2. Gated LVEF is 66% 3. Transient ischemic dilatation not present EKG is nondiagnostic for ischemia CT angio chest PE protocol 02/2023 IMPRESSION: No CT evidence of acute pulmonary thromboembolism. Likely residual/organized bilateral lower lobe thrombus following 11/30/2022 CT demonstrating bilateral acute lower lobe pulmonary emboli. Mosaic attenuation to the lung parenchyma. Unclear if on the basis of small airway disease, vascular disease, parenchymal disease or combination thereof. VTE: Negative for acute pulmonary embolism. Assessment and Plan Assessment Anesthesia Assessment: Chart Reviewed Final Anesthetic Review Family History of Problems with Anesthesia: No History of Problems with Anesthesia: No Documented by User: Megan Goodson DO 05/19/23 13:57 [facility] Past Medical History Medical History (Updated 04/24/23 @ 21:59 by Travis Monge MD) Pulmonary embolism History of kidney disease Pulmonary nodule Renal cell cancer Renal cell carcinoma of right kidney Chronic respiratory failure with hypoxia Pneumonitis ILD (interstitial lung disease) Family History Family history of problems with anesthesia: No Surgical History Surgical History History of right knee surgery (~10/2016) History of History of cholecystectomy History of Problems with Anesthesia: No Social History Social History Household Members: None Housing: [facility] Do you presently have visiting nurse or other home services: No Patient Tobacco Use Status: Former Tobacco user Tobacco use type: Cigarette Years Smoked: 5 Smoked in Last 30 Days: No Use of substances other than those prescribed or required for medical reasons: No Are you DNR?: No Advance Directives: No Advance Directives Information Provided: Yes Advance Directives Date on File: 12/01/22 service: No Meds Allergies Allergy/AdvReac Type Severity Reaction Status Date / Time latex [LATEX] Allergy Intermediate RASH Verified 04/22/23 14:21 seasonal Allergy Intermediate Sneezing Uncoded 05/19/23 13:21 Home Medications Medication Instructions Recorded Confirmed Last Taken Type cholecalciferol (vitamin D3) 25 25 mcg PO DAILY 10/22/21 05/19/23 12/30/22 History mcg (1,000 unit) capsule atenolol 25 mg tablet 50 mg PO BID 12/23/22 05/19/23 05/19/23 History Exam Exam Date and Time: May 19, 2023 1355 Height,Weight and Vital Signs: Height 5 ft Weight 71.94 kg Vital Signs Temperature 98.8 F 05/19/23 13:13 Pulse Rate 84 05/19/23 13:13 Respiratory Rate 16 05/19/23 13:13 Blood Pressure 171/96 H 05/19/23 13:13 Pulse Oximetry 92 05/19/23 13:13 Oxygen Delivery Method Room Air 05/19/23 13:13 Temperature 98.8 F 05/19/23 13:13 Pulse Rate 84 05/19/23 13:13 Respiratory Rate 16 05/19/23 13:13 Blood Pressure 171/96 H 05/19/23 13:13 Pulse Oximetry 92 05/19/23 13:13 Oxygen Delivery Method Room Air 05/19/23 13:13 Airway Mallampati Class: II TM Dist: >3cm Neck ROM: Limited Loose/Missing/Broken Teeth: No (patient denies loose or broken teeth) Heart: S1S2 Lungs: CTAB Assessment and Plan Assessment Anesthesia Assessment: Anesthesia Plan Discussed and Chart Reviewed Final Anesthetic Review Family History of Problems with Anesthesia: No History of Problems with Anesthesia: No NPO: Yes ASA Class: III Final Preanesthetic Review: No Changes in Pt Med Stat, Meds/Allgs Chart Reviewed, Consent Obtained/Reviewed and Anes Risks/Benef Reviewed Patient Risk: Intermediate Procedure Risk: Low Anesthetic Plan Anesthetic Plan: MAC: and Agree w/ Assess. and Plan Disposition: Standard PACU
[2023-05-19] MEDS: 0.9 % Sodium Chloride 1,000 ML 100 ML IVCONT (14:04)
[2023-05-19 15:10] VITALS: BP 137/69; PULSE 88; RESP 18; TEMP 36.3; O2SAT 99
--- NOTE | 2023-05-19 15:22 | PM.OP ---
Brief Operative Note Date of Service: 05/19/23 Pre-op diagnosis: Lower GI bleed Post-op diagnosis: other (Colon polyp, Diverticulosis) Procedure: Colonoscopy to the cecum with hot snare polypectomy x 1 Surgeon: Jay Guido MD Anesthesia: MAC Was an Teacher Of Family [employer] Consumer Science used for this Procedure?: No Estimated blood loss (mL): 0 Pathology: other (A. Colon polyp at 20cm) Condition: stable Disposition: PACU
[2023-05-19 15:25] VITALS: BP 161/86; PULSE 82; RESP 16; TEMP 36.1; O2SAT 98
--- NOTE | 2023-05-19 16:29 | OP_ITS ---
DATE OF SERVICE: 05/19/2023 SURGEON: Jay Guido MD INDICATIONS: The patient presents for evaluation of recent lower GI bleeding. Full consent has been obtained from her for this, including risks of bleeding and perforation. PREOPERATIVE DIAGNOSIS: Recent lower gastrointestinal bleeding. POSTOPERATIVE DIAGNOSIS: PROCEDURE PERFORMED: Colonoscopy to the cecum with hot snare polypectomy x1. ESTIMATED BLOOD LOSS: COMPLICATIONS: ANESTHESIA: Monitored anesthesia care. ASSISTANTS: SPECIMENS: POSTOPERATIVE DIAGNOSES: Recent lower gastrointestinal bleeding, colon polyp, diverticulosis, external and internal hemorrhoids. DESCRIPTION OF PROCEDURE: The patient was placed in the left lateral decubitus position. The digital rectal exam revealed some external hemorrhoids. The Olympus video pediatric colonoscope was then entered into the rectum and advanced easily to the cecum. Once in the cecum, I did identify normal-appearing cecal pouch with appendiceal orifice and a normal-appearing ileocecal valve. The entire cecum was well visualized and appeared normal. The ileocecal valve appeared normal. There was transillumination of light deep in the right lower quadrant. The scope was then slowly withdrawn assessing all mucosal surfaces carefully. Preparation was excellent. There was a mild amount of diverticulosis in the ascending colon. There was a [id number] amount of diverticulosis in the sigmoid colon. I did not visualize any sign of colitis nor angiodysplasia. The only polyp I visualized was in the sigmoid colon at 20 cm. This was approximately 10 mm in diameter and was removed by hot snare polypectomy and recovered by suction. The polypectomy site appeared clean, without any sign of residual polyp nor bleeding. I did not visualize any other polyps. In the rectum, the scope was retroflexed, visualizing prominent internal hemorrhoidal tissue, but no other pathology. The rectal mucosa appeared normal. The scope was straightened and withdrawn from the patient. She tolerated the procedure well and was returned to the recovery area in stable condition. IMPRESSION: 1. Colon polyp. 2. Diverticulosis. 3. Internal and external hemorrhoids. PLAN: The results of the pathology will be checked. Given these relatively minimal findings and her age, I do not think she would need any further screening colonoscopies. She was advised not to use any aspirin and NSAIDs for 1 week. She is going to be going on Coumadin in regard to atrial fibrillation and I advised her not to begin that until May 22. She will otherwise see me on a p.r.n. basis. MD ANDRE [place]/JOSÉ / [id number] MTDD
== END 2023-05-19 15:43 | disposition home or self-care (01) ==
PROVIDERS: PCP Internal Medicine; Visit Provider Internal Medicine
PROC: 0DJD8ZZ Inspection of Lower Intestinal Tract, Via Natural or Artificial Opening Endoscopic (ICD-10-PCS; CPT 45378; principal; 2023-05-19 14:00)
DX: K62.5 Hemorrhage of anus and rectum (principal); D64.9 Anemia, unspecified; D12.5 Benign neoplasm of sigmoid colon; K57.30 Diverticulosis of large intestine without perforation or abscess without bleeding; K64.8 Other hemorrhoids; I10 Essential (primary) hypertension; I48.91 Unspecified atrial fibrillation; Z99.81 Dependence on supplemental oxygen; J84.9 Interstitial pulmonary disease, unspecified; Z85.528 Personal history of other malignant neoplasm of kidney; Z87.891 Personal history of nicotine dependence; Z66 Do not resuscitate; Z90.49 Acquired absence of other specified parts of digestive tract; Z79.899 Other long term (current) drug therapy
CPT/HCPCS: 45385; 88305; J2704

== ENCOUNTER 2023-05-30 13:01 | Outpatient (AMB) | payer MEDICARE, SELFPAY ==
[2023-05-30 14:18] LABS: Prothrombin Time Whole Bld POC 24.3 sec (11.1-13.5)
--- NOTE | 2023-05-30 14:33 | MHC.OFFVISCO ---
Intake Vital Signs 05/30/23 14:50 BP 168/92 H Blood Pressure Location Lt brachial Position Sitting Respiration 18 Pulse 75 Pulse Source Auscultation Intake Visit Reasons: Anticoagulation Alpine Patroller Required: No Allergies latex [LATEX] Allergy (Intermediate, Verified 05/30/23 13:09) RASH seasonal Allergy (Intermediate, Uncoded 05/30/23 13:09) Sneezing Medication List - Last Reconciled 05/30/23 by Tricia Tan RN atenolol 50 mg PO BID cholecalciferol (vitamin D3) 25 mcg PO DAILY digoxin 0.25 mg PO DAILY fluticasone furoate 100 mcg/actuation (Arnuity Ellipta) 1 inh inhalation DAILY 30 days losartan 50 mg PO DAILY warfarin 5 mg PO DAILY Is last menstrual period known: No Post menopausal: Yes Patient : No Nursing Note Amb to [facility] for first [facility] visit, feeling overwhelmed relates to many medical issues over the last 6 months, uses O2 2L N/C at noc and if any PIERCE was previous on Eloquis however developed GI bleed ruptured diverticulitis started on warfarin 5mg daily 05/11 (after colonoscopy) and lovenox inj Medications and supplements reviewed- up to date TAKES WARFARIN IN AM Denies any unusual signs and symptoms of bruising, bleeding other than a couple from the Lovenox injections but not too bad Denies any new Chest pain, SOB, or clotting review of medical history, warfarin education completed, review of food lists and educational literature INR:2.0 just in therapeutic range (2.0-3.0) Nutritional guidance given:continue with usual diet, balance greens and reds in diet Dose: continue lovenox BID today and tomorrow, none on Tuesday, take 7.5 mg today and tomorrow (already took 7.5mg today) take 5mg Tuesday am; F/U INR:Tuesday Patient verbalizes understanding of instructions given with accurate read back/ teach back of dosing Anti-Coag Initial Assessment Social Hx Patient Tobacco Use Status: Former Tobacco user Tobacco use type: Cigarette Alcohol intake frequency: does not drink Fall risk assessment: No Falls in past year Cardiovascular Hx: HTN, Arrhythmias and Other (atrial fib) Lung Disease HX: DVT/PE (blood clots in lungs 12/13) and Other (interstitial lung disease) Musculoskeletal Hx: Arthritis (bilateral knee, right total replacement) GI Hx: Bleeding (GI, rectal), Diverticulosis and Hemorrhoids Hx: Other (renal cell CA 12/13) Cancer HX: Yes Psych. Illness/Depression: No Is last menstrual period known: No Post menopausal: Yes Patient : No Surgeries: renal ablation for CA right total knee replacement lap rashi 3 c-sections Anti-Coag. Education Record Teaching Recipient: Patient What is the easiest way to learn: Reading, Listening, Demonstration and Education Packet Alpine Patroller Required: No Readiness To Learn: Excellent Teaching Methods: Demonstration, Discussion, Handout and Teach Back Response to Teaching: Verbalize Understanding Re-Education needs: Reinforce Content Education Intervention/Brief Description of Teaching 1. Able to state reason for taking Warfarin: Yes 2. Able to state Pain Management techniques: Yes 3. Able to state action of Warfarin.: Yes Able to state current dose, pill color, how and when Warfarin to be taken: Yes Able to identify signs of bleeding &/or clotting: Yes 4. Able to identify need to keep diet consistent in regard to vitamin K intake: Yes Able to state restriction on alcohol: Yes 5. Able to state need for compliance with PT/INR testing: Yes Describes rationale for carrying ID and wearing Medic Alert bracelet: Yes Patient instructed to monitor for excess bruising or signs/symptoms of clotting or bleeding: Yes 6. Able to state that there are drugs that interact with Warfin: Yes 7. Able to state the need to seek medical attention when illness/injury occur.: Yes Describes the need to avoid activities with high risk of injury: Yes 8. Able to state duration of treatment: Yes 9. Demonstrates understanding of notifying all providers of pending dental surgical, or other invasive procedures: Yes 10. Able to state Home Care instructions Questionnaires HAS-BLED Does the patient had uncontrolled Hypertension?: Yes Does the patient have renal disease?: No Does the patient have liver disease?: No Does the patient have a history of stroke?: No Has the patient had major bleeding or predisposition to bleeding?: Yes Does the patient have labile INRs?: No Is the patient over 65 years of age?: Yes Is the patient on medications that gives them a predisposition to bleeding?: Yes Does the patient use alcohol?: No HAS-BLED Score: 4 CHADSVASC Age: 75 or over Gender: Female Does the patient have a history of CHF?: No Does the patient have a history of Hypertension?: Yes Does the patient have a history of Stroke/TIA/Thromboembolism?: Yes Does the patient have a history of Vascular Disease (prior OK, PAD or aortic plaque)?: No Does the patient have a history of Diabetes?: No CHADS VACS Score: 6 Rachael Prediction Score Rsk VTE Active Cancer: Yes Previous VTE, excluding superficial vein thrombosis: Yes Reduced mobility: No Already known Thrombophilic Condition: Yes With-in last month Trauma and/or Surgery: No Elderly 70 year or older: Yes Heart and/or Respiratory Failure: No Acute Myocardial infarction and/or Ischemic Stroke: No Acute Infection and/or Rheumatologic Disorder: No Obesity (BMI 30 or greater): No Ongoing Hormonal Treatment: No Score: 10 Rachael Score less than 4; Low Risk of VTE Rachael Score 4 or greater; High Risk of VTE Coding Level of Care Code New Patient Level 2 Diagnoses Current use of anticoagulant therapy Z79.01 Time Spent (min) 60 Assessment & Plan Assessment & Plan (1) Current use of anticoagulant therapy: Code(s): Z79.01 - termite inspector (current) use of anticoagulants Category: Medical Orders: Orders AMB INR Today Z79.01 - penitentiary (current) use of anticoagulants
[2023-05-30 14:50] VITALS: BP 168/92; PULSE 75; RESP 18
== END 2023-05-30 15:42 | disposition home or self-care (01) ==
LOC: HO.ACS 13:01
PROVIDERS: PCP Internal Medicine; Visit Provider Internal Medicine
DX: Z79.01 Long term (current) use of anticoagulants (principal)

== ENCOUNTER → 2023-05-30 13:01 | Outpatient (BNVA) | payer MEDICARE, SELFPAY | PROVIDERS: PCP Internal Medicine; Visit Provider Internal Medicine | DX: I48.19 Other persistent atrial fibrillation (principal); I26.99 Other pulmonary embolism without acute cor pulmonale; Z79.01 Long term (current) use of anticoagulants; Z51.81 Encounter for therapeutic drug level monitoring | CPT/HCPCS: 85610; 99202 ==

== ENCOUNTER 2023-06-01 10:45 | Outpatient (AMB) | payer MEDICARE, SELFPAY ==
[2023-06-01 11:21] LABS: Prothrombin Time Whole Bld POC 30.7 sec (11.1-13.5); ~PT, ~INR - Anti Coag Clinic 2.6 (0.9-1.1)
--- NOTE | 2023-06-01 11:42 | MHC.OFFVISCO ---
Intake Intake Visit Reasons: Anticoagulation Allergies amlodipine Allergy (Intermediate, Verified 06/01/23 11:15) Difficulty Breathing latex [LATEX] Allergy (Intermediate, Verified 06/01/23 11:15) RASH seasonal Allergy (Intermediate, Uncoded 05/30/23 13:09) Sneezing altace Adverse Reaction (Mild, Uncoded 05/30/23 15:41) Cough Medication List - Last Reconciled 06/01/23 by Corinna Raphael RN atenolol 50 mg PO BID cholecalciferol (vitamin D3) 25 mcg PO DAILY digoxin 0.25 mg PO DAILY fluticasone furoate 100 mcg/actuation (Arnuity Ellipta) 1 inh inhalation DAILY 30 days losartan 50 mg PO DAILY warfarin 5 mg See Protocol PO DAILY Nursing Note PT. HAS FINISHED LOVENOX. PT.DENIES ANY CP,SOB OR SX OF BLEEDING. NO MED CHANGES. DIET REVIEWED AND DISCUSSED WITH PT. AND QUESTIONS ANSWERED. SHE WILL START TAKING WARFARIN IN THE PM STARTING TOMORROW. 5MGM TOMORROW(TOOK 5MGM TODAY IN AM)AND RETEST INR ON 06/02. GOOD UNDERSTANDING OF DOSING INSTR.VERB. BY PT. TO CALL [facility] IN MEANTIME IF ANY QUESTIONS/CONCERNS ARISE. Anti-Coag Initial Assessment Social Hx Patient Tobacco Use Status: Former Tobacco user Tobacco use type: Cigarette Alcohol intake frequency: does not drink Cardiovascular Hx: HTN, Arrhythmias and Other (atrial fib) Lung Disease HX: DVT/PE (blood clots in lungs 12/13) and Other (interstitial lung disease) Musculoskeletal Hx: Arthritis (bilateral knee, right total replacement) GI Hx: Bleeding (GI, rectal), Diverticulosis and Hemorrhoids Hx: Other (renal cell CA 12/13) Cancer HX: Yes Psych. Illness/Depression: No Coding Level of Care Code Est Patient Level 1 Diagnoses Current use of anticoagulant therapy Z79.01 Assessment & Plan Assessment & Plan (1) Current use of anticoagulant therapy: Code(s): Z79.01 - remote computer terminal operator (current) use of anticoagulants Category: Medical
== END 2023-06-01 11:52 | disposition home or self-care (01) ==
LOC: HO.ACS 10:45
PROVIDERS: PCP Internal Medicine; Visit Provider Internal Medicine
DX: Z79.01 Long term (current) use of anticoagulants (principal)

== ENCOUNTER → 2023-06-01 10:45 | Outpatient (BNVA) | payer MEDICARE, SELFPAY | PROVIDERS: PCP Internal Medicine; Visit Provider Internal Medicine | DX: I48.19 Other persistent atrial fibrillation (principal); I26.99 Other pulmonary embolism without acute cor pulmonale; Z79.01 Long term (current) use of anticoagulants; Z51.81 Encounter for therapeutic drug level monitoring | CPT/HCPCS: 85610; 99211 ==

== ENCOUNTER 2023-06-03 10:30 | Outpatient (AMB) | payer MEDICARE, SELFPAY ==
[2023-06-03 10:47] LABS: Prothrombin Time Whole Bld POC 26.4 sec (11.1-13.5); ~PT, ~INR - Anti Coag Clinic 2.2 (0.9-1.1)
--- NOTE | 2023-06-03 11:00 | MHC.OFFVISCO ---
Intake Intake Visit Reasons: Anticoagulation Allergies amlodipine Allergy (Intermediate, Verified 06/03/23 10:42) Difficulty Breathing latex [LATEX] Allergy (Intermediate, Verified 06/03/23 10:42) RASH seasonal Allergy (Intermediate, Uncoded 06/03/23 10:42) Sneezing altace Adverse Reaction (Mild, Uncoded 06/03/23 10:42) Cough Medication List - Last Reconciled 06/03/23 by Tricia Kilgore RN atenolol 50 mg PO BID cholecalciferol (vitamin D3) 25 mcg PO DAILY digoxin 0.25 mg PO DAILY fluticasone furoate 100 mcg/actuation (Arnuity Ellipta) 1 inh inhalation DAILY 30 days losartan 50 mg PO DAILY warfarin 5 mg See Protocol PO DAILY Nursing Note INR: 2.2 in therapeutic range of 2-3 Medications and supplements reviewed: no changes No changes in health, diet, medications, or supplements, Denies any signs and symptoms of bleeding or bruising or clotting. Bleeding, bruising, clotting discussed Nutritional guidance given to continue to balance reds and greens. Food list reviewed with pt and questions answered Dose: 5mg X 5 days and 7.5mg X 2 days F/U INR: 06/08/23 Patient verbalizes understanding of instructions given Anti-Coag Initial Assessment Social Hx Patient Tobacco Use Status: Former Tobacco user Tobacco use type: Cigarette Alcohol intake frequency: does not drink Cardiovascular Hx: HTN, Arrhythmias and Other (atrial fib) Lung Disease HX: DVT/PE (blood clots in lungs 12/13) and Other (interstitial lung disease) Musculoskeletal Hx: Arthritis (bilateral knee, right total replacement) GI Hx: Bleeding (GI, rectal), Diverticulosis and Hemorrhoids Hx: Other (renal cell CA 12/13) Cancer HX: Yes Psych. Illness/Depression: No Coding Level of Care Code Est Patient Level 1 Diagnoses Current use of anticoagulant therapy Z79.01 Results AMB INR Fingerstick AMB INR Fingerstick 2.2 Last Edit by Tricia Kilgore RN on 06/03/23 10:53 interface delay Assessment & Plan Assessment & Plan (1) Current use of anticoagulant therapy: Code(s): Z79.01 - FDC (current) use of anticoagulants Category: Medical
== END 2023-06-03 11:09 | disposition home or self-care (01) ==
LOC: HO.ACS 10:30
PROVIDERS: PCP Internal Medicine; Visit Provider Internal Medicine
DX: Z79.01 Long term (current) use of anticoagulants (principal)

== ENCOUNTER → 2023-06-03 10:30 | Outpatient (BNVA) | payer MEDICARE, SELFPAY | PROVIDERS: PCP Internal Medicine; Visit Provider Internal Medicine | DX: I48.19 Other persistent atrial fibrillation (principal); I26.99 Other pulmonary embolism without acute cor pulmonale; Z79.01 Long term (current) use of anticoagulants; Z51.81 Encounter for therapeutic drug level monitoring | CPT/HCPCS: 85610; 99211 ==

== ENCOUNTER 2023-06-08 13:19 | Outpatient (AMB) | payer MEDICARE, SELFPAY ==
--- NOTE | 2023-06-08 13:49 | MHC.OFFVISCO ---
Intake Intake Visit Reasons: Anticoagulation Allergies amlodipine Allergy (Intermediate, Verified 06/08/23 13:38) Difficulty Breathing latex [LATEX] Allergy (Intermediate, Verified 06/08/23 13:38) RASH seasonal Allergy (Intermediate, Uncoded 06/03/23 10:42) Sneezing altace Adverse Reaction (Mild, Uncoded 06/03/23 10:42) Cough Medication List - Last Reconciled 06/08/23 by Corinna Raphael RN atenolol 50 mg PO BID cholecalciferol (vitamin D3) 25 mcg PO DAILY digoxin 0.25 mg PO DAILY fluticasone furoate 100 mcg/actuation (Arnuity Ellipta) 1 inh inhalation DAILY 30 days losartan 50 mg PO DAILY warfarin 5 mg See Protocol PO DAILY Nursing Note NO CP,SOB,DIET/MED CHANGES,FALLS OR SX OF BLEEDING. WILL CONTINUE 7.5MGM X2 AND 5MGM X5 AND RECHECK INR ON 06/13/23 GOOD UNDERSTANDING OF DOSING INSTR.VERB BY PT. Anti-Coag Initial Assessment Social Hx Patient Tobacco Use Status: Former Tobacco user Tobacco use type: Cigarette Alcohol intake frequency: does not drink Cardiovascular Hx: HTN, Arrhythmias and Other (atrial fib) Lung Disease HX: DVT/PE (blood clots in lungs 12/13) and Other (interstitial lung disease) Musculoskeletal Hx: Arthritis (bilateral knee, right total replacement) GI Hx: Bleeding (GI, rectal), Diverticulosis and Hemorrhoids Hx: Other (renal cell CA 12/13) Cancer HX: Yes Psych. Illness/Depression: No Coding Level of Care Code Est Patient Level 1 Diagnoses Current use of anticoagulant therapy Z79.01 Assessment & Plan Assessment & Plan (1) Current use of anticoagulant therapy: Code(s): Z79.01 - terminologist (current) use of anticoagulants Category: Medical
[2023-06-09 08:03] LABS: Prothrombin Time Whole Bld POC 26.4 sec (11.1-13.5); ~PT, ~INR - Anti Coag Clinic 2.2 (0.9-1.1)
== END 2023-06-08 13:50 | disposition home or self-care (01) ==
LOC: HO.ACS 13:19
PROVIDERS: PCP Internal Medicine; Visit Provider Internal Medicine
DX: Z79.01 Long term (current) use of anticoagulants (principal)

== ENCOUNTER → 2023-06-08 13:19 | Outpatient (BNVA) | payer MEDICARE, SELFPAY | PROVIDERS: PCP Internal Medicine; Visit Provider Internal Medicine | DX: I48.19 Other persistent atrial fibrillation (principal); I26.99 Other pulmonary embolism without acute cor pulmonale; Z79.01 Long term (current) use of anticoagulants; Z51.81 Encounter for therapeutic drug level monitoring | CPT/HCPCS: 85610; 99211 ==

== ENCOUNTER 2023-06-13 13:14 | Outpatient (AMB) | payer MEDICARE, SELFPAY ==
[2023-06-13 13:32] LABS: Prothrombin Time Whole Bld POC 25.4 sec (11.1-13.5); ~PT, ~INR - Anti Coag Clinic 2.1 (0.9-1.1)
--- NOTE | 2023-06-13 13:48 | MHC.OFFVISCO ---
Intake Intake Visit Reasons: Anticoagulation Allergies amlodipine Allergy (Intermediate, Verified 06/13/23 13:23) Difficulty Breathing latex [LATEX] Allergy (Intermediate, Verified 06/13/23 13:23) RASH seasonal Allergy (Intermediate, Uncoded 06/13/23 13:23) Sneezing altace Adverse Reaction (Mild, Uncoded 06/13/23 13:23) Cough Medication List - Last Reconciled 06/13/23 by Farheen Pruett RN atenolol 50 mg PO BID cholecalciferol (vitamin D3) 25 mcg PO DAILY digoxin 0.25 mg PO DAILY fluticasone furoate 100 mcg/actuation (Arnuity Ellipta) 1 inh inhalation DAILY 30 days losartan 50 mg PO DAILY warfarin 5 mg See Protocol PO DAILY Nursing Note INR: 2.1 in therapeutic range Medications and supplements reviewed No changes in health, diet, medications, or supplements, Likes greenss Denies any signs and symptoms of bleeding or bruising or clotting. Bleeding, bruising, clotting discussed Nutritional guidance given -eat a mix of fruits and vegetables- would like to be able to eat more greens Dose: increase dose 7.5mg x 3 days/ 5mg x 4 days - goal for INR middle of range F/U INR: 1 week Patient verbalizes understanding of instructions given Anti-Coag Initial Assessment Social Hx Patient Tobacco Use Status: Former Tobacco user Tobacco use type: Cigarette Alcohol intake frequency: does not drink Cardiovascular Hx: HTN, Arrhythmias and Other (atrial fib) Lung Disease HX: DVT/PE (blood clots in lungs 12/13) and Other (interstitial lung disease) Musculoskeletal Hx: Arthritis (bilateral knee, right total replacement) GI Hx: Bleeding (GI, rectal), Diverticulosis and Hemorrhoids Hx: Other (renal cell CA 12/13) Cancer HX: Yes Psych. Illness/Depression: No Coding Level of Care Code Est Patient Level 1 Diagnoses Current use of anticoagulant therapy Z79.01 Results AMB INR Fingerstick AMB INR Fingerstick 2.1 Last Edit by Farheen Pruett RN on 06/13/23 13:33 MANUAL ENTRY Assessment & Plan Assessment & Plan (1) Current use of anticoagulant therapy: Code(s): Z79.01 - watermaster (current) use of anticoagulants Category: Medical
== END 2023-06-13 13:53 | disposition home or self-care (01) ==
LOC: HO.ACS 13:14
PROVIDERS: PCP Internal Medicine; Visit Provider Internal Medicine
DX: Z79.01 Long term (current) use of anticoagulants (principal)

== ENCOUNTER → 2023-06-13 13:14 | Outpatient (BNVA) | payer MEDICARE, SELFPAY | PROVIDERS: PCP Internal Medicine; Visit Provider Internal Medicine | DX: I48.19 Other persistent atrial fibrillation (principal); I26.99 Other pulmonary embolism without acute cor pulmonale; Z51.81 Encounter for therapeutic drug level monitoring; Z79.01 Long term (current) use of anticoagulants | CPT/HCPCS: 85610; 99211 ==

== ENCOUNTER 2023-06-16 08:23 | Outpatient (AMB) | payer MEDICARE, SELFPAY ==
--- NOTE | 2023-06-16 08:25 | MHC.OFFVIS ---
Vital Signs 06/16/23 08:28 Height 5 ft Weight 150 lb BMI 29.3 Intake Visit Reasons: ov- Left shoulder pain last inj 03/17/2023 Intake Note: Sudha is a 82 year old female who presents for a follow up of Left shoulder pain. Patient reports she had an injection in her Left shoulder on 03/17/2023 and it gave her good relief. She would like to repeat the left shoulder injection today. She has tried Tylenol which gives her mild relief. She has also done physical therapy exercises which aggravated her pain. She would like to hold off on surgery for as long as possible. Allergies amlodipine Allergy (Intermediate, Verified 06/16/23 08:29) Difficulty Breathing latex [LATEX] Allergy (Intermediate, Verified 06/16/23 08:29) RASH seasonal Allergy (Intermediate, Uncoded 06/13/23 13:23) Sneezing altace Adverse Reaction (Mild, Uncoded 06/13/23 13:23) Cough Medication List - Last Reconciled 06/16/23 by Giovany Abraham MD atenolol 50 mg PO BID cholecalciferol (vitamin D3) 25 mcg PO DAILY digoxin 0.25 mg PO DAILY fluticasone furoate 100 mcg/actuation (Arnuity Ellipta) 1 inh inhalation DAILY 30 days losartan 50 mg PO DAILY warfarin 5 mg See Protocol PO DAILY [facility] Medical History Pulmonary embolism History of kidney disease Pulmonary nodule Renal cell cancer Renal cell carcinoma of right kidney Chronic respiratory failure with hypoxia Pneumonitis ILD (interstitial lung disease) Surgical History History of right knee surgery (~10/2016) History of History of cholecystectomy Social History Household Members: None Housing: Condominium Do you presently have visiting nurse or other home services: No Patient Tobacco Use Status: Former Tobacco user Tobacco use type: Cigarette Years Smoked: 5 Advance Directives Date on File: 12/01/22 service: No Physical Exam Vital Signs: BMI result Body Mass Index 29.3 Const Other: Well-nourished well-developed very friendly female awake alert and oriented x3 in no acute distress Extrem Other: Bilateral upper extremity examination shows good capillary refill, no skin lesions noted, normal sensation light touch Left shoulder examination shows decreased range of motion when compared to right shoulder, pain with range of motion, crepitus with range of motion, no instability Office Procedures Joint Injection/Drain Joint Injection/Drain Primary Site: left shoulder Prep: site was prepped using aseptic technique Injected: 40 mg of, DepoMedrol and 1% plain lidocaine Procedure: The patient tolerated the procedure well Coding 24158 - Large joint Procedure code (CPT) selection complete Results Reviewed Results Reviewed: X-rays of the patient's left shoulder show moderate glenohumeral joint degenerative changes, a type 2 acromion, no acute bony abnormalities Assessment & Plan Assessment & Plan (1) Arthritis of left shoulder region: Code(s): M19.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 Meek presents with left shoulder pain and stiffness due to glenohumeral joint arthritis and adhesive capsulitis. I had a lengthy discussion with the patient regarding the treatment options. She wishes to hold off on surgery for as long as possible. I agree with this plan. The risks and benefits of a left shoulder cortisone injection were discussed at length with the patient. The patient wished to proceed with the injection. She tolerated the injection well. She will continue with her home stretching program. She will follow up with me on an as-needed basis should her symptoms not plateau at an unacceptable level over the next few months. Feel free to call me at any time should questions regarding her orthopedic management arise. I spent 22 minutes in reviewing the patient's records and imaging studies, seeing the patient and documenting in the medical record. Orders: Orders AMB Joint Injection/Aspiration Today M19.012 - Primary osteoarthritis, left shoulder Coding Level of Care Code Est Pt Level 2 (89648) Diagnoses Arthritis of left shoulder region M19.012 CPT Codes Coding - 33393 Large joint: 37810 - Large joint ([id number])
[2023-06-16 08:28] VITALS: BMI 29.3
== END 2023-06-16 08:42 | disposition home or self-care (01) ==
PROVIDERS: PCP Internal Medicine; Visit Provider Orthopaedic Surgery
DX: M19.012 Primary osteoarthritis, left shoulder (principal)
CPT/HCPCS: 20610; 99213

== ENCOUNTER → 2023-06-16 08:23 | Outpatient (BNVA) | payer MEDICARE, SELFPAY | PROVIDERS: PCP Internal Medicine; Visit Provider Orthopaedic Surgery | DX: M19.012 Primary osteoarthritis, left shoulder (principal) | CPT/HCPCS: 20610; 99212; J1010 ==

== ENCOUNTER 2023-06-20 13:26 | Outpatient (AMB) | payer MEDICARE, SELFPAY ==
[2023-06-20 13:44] LABS: Prothrombin Time Whole Bld POC 21.8 sec (11.1-13.5); ~PT, ~INR - Anti Coag Clinic 1.8 (0.9-1.1)
--- NOTE | 2023-06-20 13:49 | MHC.OFFVISCO ---
Intake Intake Visit Reasons: Anticoagulation Allergies amlodipine Allergy (Intermediate, Verified 06/20/23 13:30) Difficulty Breathing latex [LATEX] Allergy (Intermediate, Verified 06/20/23 13:30) RASH seasonal Allergy (Intermediate, Uncoded 06/20/23 13:30) Sneezing altace Adverse Reaction (Mild, Uncoded 06/20/23 13:30) Cough Medication List - Last Reconciled 06/20/23 by Tricia Kilgore, RN atenolol 50 mg PO BID cholecalciferol (vitamin D3) 25 mcg PO DAILY digoxin 0.25 mg PO DAILY fluticasone furoate 100 mcg/actuation (Arnuity Ellipta) 1 inh inhalation DAILY 30 days losartan 50 mg PO DAILY warfarin 5 mg See Protocol PO DAILY Nursing Note INR: 2.1 in therapeutic of range 2-3 Medications and supplements reviewed: no changes No changes in health, diet, medications, or supplements, Denies any signs and symptoms of bleeding or bruising or clotting. Bleeding, bruising, clotting discussed Nutritional guidance given to continue to balance reds and greens Pt wants to start having more greens Dose: increase today to 7.5 (5mg) then weekly dose increased (see Dose Management) F/U INR: 1 week Patient verbalizes understanding of instructions given Anti-Coag Initial Assessment Social Hx Patient Tobacco Use Status: Former Tobacco user Tobacco use type: Cigarette Alcohol intake frequency: does not drink Cardiovascular Hx: HTN, Arrhythmias and Other (atrial fib) Lung Disease HX: DVT/PE (blood clots in lungs 12/13) and Other (interstitial lung disease) Musculoskeletal Hx: Arthritis (bilateral knee, right total replacement) GI Hx: Bleeding (GI, rectal), Diverticulosis and Hemorrhoids Hx: Other (renal cell CA 12/13) Cancer HX: Yes Psych. Illness/Depression: No Coding Level of Care Code Est Patient Level 1 Diagnoses Current use of anticoagulant therapy Z79.01 Assessment & Plan Assessment & Plan (1) Current use of anticoagulant therapy: Code(s): Z79.01 - longterm (current) use of anticoagulants Category: Medical
== END 2023-06-20 14:48 | disposition home or self-care (01) ==
LOC: HO.ACS 13:26
PROVIDERS: PCP Internal Medicine; Visit Provider Internal Medicine
DX: Z79.01 Long term (current) use of anticoagulants (principal)

== ENCOUNTER → 2023-06-20 13:26 | Outpatient (BNVA) | payer MEDICARE, SELFPAY | PROVIDERS: PCP Internal Medicine; Visit Provider Internal Medicine | DX: I48.19 Other persistent atrial fibrillation (principal); I26.99 Other pulmonary embolism without acute cor pulmonale; Z51.81 Encounter for therapeutic drug level monitoring; Z79.01 Long term (current) use of anticoagulants | CPT/HCPCS: 85610; 99211 ==

== ENCOUNTER → 2023-06-27 13:52 | Outpatient (BNVA) | payer MEDICARE, SELFPAY | PROVIDERS: PCP Internal Medicine; Visit Provider Internal Medicine | DX: I48.19 Other persistent atrial fibrillation (principal); I26.99 Other pulmonary embolism without acute cor pulmonale; Z51.81 Encounter for therapeutic drug level monitoring; Z79.01 Long term (current) use of anticoagulants | CPT/HCPCS: 85610; 99211 ==

== ENCOUNTER 2023-07-05 10:00 | Outpatient (AMB) | payer MEDICARE, SELFPAY ==
[2023-07-05 10:07] LABS: Prothrombin Time Whole Bld POC 45.6 sec (11.1-13.5); ~PT, ~INR - Anti Coag Clinic 3.8 (0.9-1.1)
--- NOTE | 2023-07-05 10:25 | MHC.OFFVISCO ---
Intake Intake Visit Reasons: Anticoagulation Allergies amlodipine Allergy (Intermediate, Verified 07/05/23 10:02) Difficulty Breathing latex [LATEX] Allergy (Intermediate, Verified 07/05/23 10:02) RASH seasonal Allergy (Intermediate, Uncoded 07/05/23 10:02) Sneezing altace Adverse Reaction (Mild, Uncoded 07/05/23 10:02) Cough Medication List - Last Reconciled 07/05/23 by Tricia Kilgore RN atenolol 50 mg PO BID cholecalciferol (vitamin D3) 25 mcg PO DAILY digoxin 0.25 mg PO DAILY fluticasone furoate 100 mcg/actuation (Arnuity Ellipta) 1 inh inhalation DAILY 30 days losartan 50 mg PO DAILY warfarin 5 mg See Protocol PO DAILY Nursing Note INR 3.8?out of therapeutic range of 2-3 Medications and supplements reviewed Patient status: well Medications or supplements: no changes Diet: usual diet per pt Denies any signs and symptoms of bleeding or clotting or unusual bruising Bleeding, bruising, clotting discussed Nutritional guidance given: to have greens today and tomorrow Dose: today's dose decreased to 5mg (7.5mg) then resume usual dose of 5mg X3 days and 7.5mg X 4 days F/U INR Date : 1 week Patient verbalizing understanding of instructions given. Anti-Coag Initial Assessment Social Hx Patient Tobacco Use Status: Former Tobacco user Tobacco use type: Cigarette Alcohol intake frequency: does not drink Cardiovascular Hx: HTN, Arrhythmias and Other (atrial fib) Lung Disease HX: DVT/PE (blood clots in lungs 12/13) and Other (interstitial lung disease) Musculoskeletal Hx: Arthritis (bilateral knee, right total replacement) GI Hx: Bleeding (GI, rectal), Diverticulosis and Hemorrhoids Hx: Other (renal cell CA 12/13) Cancer HX: Yes Psych. Illness/Depression: No Coding Level of Care Code Est Patient Level 1 Diagnoses Current use of anticoagulant therapy Z79.01 Assessment & Plan Assessment & Plan (1) Current use of anticoagulant therapy: Code(s): Z79.01 - detention (current) use of anticoagulants Category: Medical
== END 2023-07-05 13:03 | disposition home or self-care (01) ==
LOC: HO.ACS 10:00
PROVIDERS: PCP Internal Medicine; Visit Provider Internal Medicine
DX: Z79.01 Long term (current) use of anticoagulants (principal)

== ENCOUNTER → 2023-07-05 10:00 | Outpatient (BNVA) | payer MEDICARE, SELFPAY | PROVIDERS: PCP Internal Medicine; Visit Provider Internal Medicine | DX: I48.19 Other persistent atrial fibrillation (principal); I26.99 Other pulmonary embolism without acute cor pulmonale; Z51.81 Encounter for therapeutic drug level monitoring; Z79.01 Long term (current) use of anticoagulants | CPT/HCPCS: 85610; 99211 ==

== ENCOUNTER 2023-07-12 09:47 | Outpatient (AMB) | payer MEDICARE, SELFPAY ==
[2023-07-12 10:06] LABS: Prothrombin Time Whole Bld POC 31.1 sec (11.1-13.5); ~PT, ~INR - Anti Coag Clinic 2.6 (0.9-1.1)
--- NOTE | 2023-07-12 10:19 | MHC.OFFVISCO ---
Intake Intake Visit Reasons: Anticoagulation Allergies amlodipine Allergy (Intermediate, Verified 07/12/23 10:00) Difficulty Breathing latex [LATEX] Allergy (Intermediate, Verified 07/12/23 10:00) RASH seasonal Allergy (Intermediate, Uncoded 07/12/23 10:00) Sneezing altace Adverse Reaction (Mild, Uncoded 07/12/23 10:00) Cough Medication List - Last Reconciled 07/12/23 by Tricia Kilgore RN atenolol 50 mg PO BID cholecalciferol (vitamin D3) 25 mcg PO DAILY digoxin 0.25 mg PO DAILY fluticasone furoate 100 mcg/actuation (Arnuity Ellipta) 1 inh inhalation DAILY 30 days losartan 50 mg PO DAILY warfarin 5 mg See Protocol PO DAILY Nursing Note INR: 2.6 in therapeutic range of 2-3 Medications and supplements reviewed: no changes No changes in health, diet, medications, or supplements, Denies any signs and symptoms of bleeding or bruising or clotting. Bleeding, bruising, clotting discussed Nutritional guidance given to review the food list and balance reds and greens Dose: 7.5mg X4 days and 5mg X 3days F/U INR: 1 week Patient verbalizes understanding of instructions given Anti-Coag Initial Assessment Social Hx Patient Tobacco Use Status: Former Tobacco user Tobacco use type: Cigarette Alcohol intake frequency: does not drink Cardiovascular Hx: HTN, Arrhythmias and Other (atrial fib) Lung Disease HX: DVT/PE (blood clots in lungs 12/13) and Other (interstitial lung disease) Musculoskeletal Hx: Arthritis (bilateral knee, right total replacement) GI Hx: Bleeding (GI, rectal), Diverticulosis and Hemorrhoids Hx: Other (renal cell CA 12/13) Cancer HX: Yes Psych. Illness/Depression: No Coding Level of Care Code Est Patient Level 1 Diagnoses Current use of anticoagulant therapy Z79.01 Results AMB INR Fingerstick AMB INR Fingerstick 2.6 Last Edit by Tricia Kilgore RN on 07/12/23 10:09 interface delay Assessment & Plan Assessment & Plan (1) Current use of anticoagulant therapy: Code(s): Z79.01 - buttermaker (current) use of anticoagulants Category: Medical
== END 2023-07-12 10:21 | disposition home or self-care (01) ==
LOC: HO.ACS 09:47
PROVIDERS: PCP Internal Medicine; Visit Provider Internal Medicine
DX: Z79.01 Long term (current) use of anticoagulants (principal)

== ENCOUNTER → 2023-07-12 09:47 | Outpatient (BNVA) | payer MEDICARE, SELFPAY | PROVIDERS: PCP Internal Medicine; Visit Provider Internal Medicine | DX: I48.19 Other persistent atrial fibrillation (principal); I26.99 Other pulmonary embolism without acute cor pulmonale; Z79.01 Long term (current) use of anticoagulants; Z51.81 Encounter for therapeutic drug level monitoring | CPT/HCPCS: 85610; 99211 ==

== ENCOUNTER 2023-07-20 08:37 | Emergency (ER) | payer MEDICARE, SELFPAY ==
[2023-07-20] VITALS (7 sets, daily range): BP systolic 149–165; BP diastolic 93–101; PULSE 88–100; RESP 16–19; TEMP 36.1–36.6; O2SAT 88–96; BMI 29.3
--- NOTE | ~2023-07-20 | CT_ITS ---
EXAMINATION: CT CHEST WITHOUT CONTRAST CLINICAL INFORMATION: Follow-up spot on lung COMPARISON: Previous chest CT February 2023 and chest x-ray December 2022 TECHNIQUE: Multidetector volumetric CT imaging of the chest was done. Axial MIP volume rendering provided. Sagittal and coronal reformatted images were obtained. This CT examination was performed using dose optimization techniques as appropriate, variously including the following: *Automated exposure control *Adjustment of mA and/or kV according to patient size (this includes techniques or standardized protocols for targeted exams where dose is matched to indication/reason for exam; i.e. extremities or head) *Use of iterative reconstruction technique DLP: 291 mGy-cm FINDINGS: LUNGS: There are multiple new semisolid nodular opacities seen throughout both lungs. Largest measure 2 x 3 cm at the left lung apex axial image 9, 1 cm in the right upper lobe axial image 13, 1 x 1.4 cm in the left lower lobe superior segment axial image 20 and 1.5 x 2.3 cm in the right lower lobe axial image 31 series 3. There are additional areas of solid station and groundglass attenuation with some air bronchograms seen throughout the lungs greatest in the bilateral upper lobes for example in the right upper lobe axial image 27 and in the left upper lobe axial image 20 series 3. These findings are new from prior CT February 2023. There is still diffuse mosaic attenuation to the lung parenchyma and areas of increased linear reticulation or fibrosis. MEDIASTINUM: The right lobe of the thyroid gland is enlarged. No focal nodule is appreciated. There are prominent mediastinal lymph nodes. These appear increased from February 2023 exam. Largest lymph node is a precarinal lymph node measuring 1.7 cm in short axis. Evaluation for hilar adenopathy limited without IV contrast. The pulmonary arteries upper normal in size, main pulmonary artery measuring 3.1 cm. Normal heart size. Tortuous normal caliber thoracic aorta. No pericardial effusion. CORONARY ARTERY CALCIFICATION: Mild PLEURA: There is no pleural effusion. No pleural mass or thickening. AXILLA: No lymphadenopathy. UPPER ABDOMEN: Partially visualized heterogeneous lesion exophytic to the lateral upper pole of the right kidney. This contains low-attenuation and fatty components. Review of prior CT August 2021 demonstrates a 3.3 cm homogeneous lesion similar attenuation to the renal cortex and this may represent a treated lesion. Clinical correlation recommended. Mild diverticulosis of the colon. OSSEOUS STRUCTURES: Degenerative changes of the spine. CT/CT chest wo IV con IMPRESSION: Innumerable new semisolid nodular opacities throughout the lungs and areas of airspace disease and groundglass attenuation. This is seen on a background of heterogeneous mosaic attenuation and increased linear reticular markings or fibrosis. Slightly enlarged mediastinal lymph nodes. Acute alveolitis related to chronic interstitial lung disease and acute alveolitis should be considered, in particular nonspecific interstitial pneumonitis or sarcoidosis. Infection and neoplastic process cannot be excluded. Imaging follow-up recommended. Right renal lesion as described above. Clinical correlation recommended. Fleischner guidelines were followed.
--- NOTE | 2023-07-20 08:48 | ECG_ITS ---
Test Reason : cp Blood Pressure : / mmHG Vent. Rate : 092 BPM Atrial Rate : 000 BPM P-R Int : 000 ms QRS Dur : 074 ms QT Int : 360 ms P-R-T Axes : 000 052 084 degrees QTc Int : 445 ms Atrial fibrillation Nonspecific T wave abnormality Abnormal ECG When compared with ECG of 31-DEC-2022 10:43, No significant changes seen Referred By: Generic ED Physician Electronically Signed By:TONI ESTEBAN
[2023-07-20 09:14] LABS: MANUAL DIFF FLAG NO
[2023-07-20 09:17] LABS: Basophils Absolute Auto 0.1 X10*3/uL (0.0-0.2); Basophils Percent Auto 0.5 % (0-2); Eosinophils Absolute Auto 0.3 X10*3/uL (0.0-0.4); Eosinophils Percent Auto 2.5 % (0-4); Hematocrit 37.7 % (37.0-47.0); Hemoglobin 12.2 g/dl (12.0-16.0); Imm Gran Abs Auto 0.08 X10*3/uL (0.00-0.03); Imm Gran Pct Auto 0.8 % (0.0-0.4); Lymphocytes Absolute Auto 1.5 X10*3/uL (1.2-4.9); Lymphocytes Percent Auto 14.4 % (20-40); Mean Corpuscular HGB Conc 32.4 g/dl (31.0-35.0); Mean Corpuscular Hemoglobin 28.3 pg (27.0-33.0); Mean Corpuscular Volume 87.5 fL (80.0-98.0); Monocytes Absolute Auto 0.7 X10*3/uL (0.1-1.2); Neutrophils Absolute Auto 7.5 x10*3/uL (2.0-8.3); Neutrophils Percent Auto 74.8 % (45-73); Platelet Count 305 X10*3/uL (160-400); Red Blood Count 4.31 X10*6/uL (4.20-5.50); Red Cell Distribution Width 14.4 % (11.0-16.0); White Blood Count 10.1 X10*3/uL (4.8-10.8)
[2023-07-20 09:33] LABS: Anion Gap 13 (12-20); Blood Urea Nitrogen 13 mg/dL (9-16); Calcium 9.6 mg/dL (8.4-10.2); Carbon Dioxide 26 mmol/L (22-29); Chloride 104 mmol/L (96-108); Creatinine Clr Calc Pharmacy 62.2; Estimated Glomerular Filt Rate > 60; Glucose Random 115 mg/dL (60-115); Potassium 3.5 mmol/L (3.3-5.1); Sodium 139 mmol/L (135-145)
[2023-07-20 09:40] LABS: B Type Natriuretic Peptide 212 pg/mL (<100)
[2023-07-20 09:41] LABS: Troponin-I High Sensitivity < 2.7 ng/L (<3.5-17.0)
--- NOTE | 2023-07-20 09:55 | ED.GENADULT ---
HPI - General Adult General Chief complaint: Upper Respiratory Symptoms Stated complaint: Difficulty breathing, resp symptoms Time Seen by Provider: 07/20/23 09:39 Source: patient, RN notes reviewed and old records reviewed Mode of arrival: ambulatory Limitations: no limitations History of Present Illness ED Provider: MICHELLE JASMINE PA-C HPI narrative: 82 year old female with pmhx significant for HTN, uncontrolled afib, recent PE on warfarin, interstitial lung disease, pulmonary nodule, renal cell carcinoma of right kidney presents to the ED today for evaluation of cough x1 day. Reports coughing fit that began while lying down last night lasting about 2 minutes with associated shortness of breath which has since resolved. Denies sputum production. Denies known sick contacts. Denies recent illness. Denies recent travel or long car rides. Denies fever, chills, hemoptysis, sputum production, chest pain, palpitations, calf pain. Hx of chronic afib with unsuccessful cardioversion in the all of 2023. She takes digoxin for this. Related Data Home Medications ?Medication ?Instructions ?Recorded ?Confirmed cholecalciferol (vitamin D3) 25 25 mcg PO DAILY 10/22/21 07/21/23 mcg (1,000 unit) capsule atenolol 25 mg tablet 50 mg PO BID 12/23/22 07/21/23 warfarin 5 mg tablet 5 mg PO DAILY 05/30/23 07/21/23 cefprozil 500 mg tablet 500 mg PO BID 07/21/23 07/21/23 Previous Rx's ?Medication ?Instructions ?Recorded losartan 50 mg tablet 50 mg PO DAILY #30 tabs 02/10/23 fluticasone furoate 100 1 inh inhalation DAILY 30 days #30 04/22/23 mcg/actuation blister powder for ea inhalation (Arnuity Ellipta) digoxin 250 mcg (0.25 mg) tablet 0.25 mg PO DAILY #30 tabs 05/25/23 prednisone 20 mg tablet 20 mg PO DAILY 4 days #4 tabs 07/20/23 Allergies Allergy/AdvReac Type Severity Reaction Status Date / Time amlodipine Allergy Intermediate Difficulty Verified 07/21/23 10:36 Breathing latex [LATEX] Allergy Intermediate RASH Verified 07/21/23 10:36 seasonal Allergy Intermediate Sneezing Uncoded 07/21/23 10:36 altace AdvReac Mild Cough Uncoded 07/21/23 10:36 Review of Systems Review of Systems: Constitutional: No fever, chills, fatigue, night sweats, weight changes ENT/Mouth: No ear pain, hearing loss, nasal congestion, sinus pain, rhinorrhea, sore throat Eyes: No eye pain, swelling, redness, vision changes, discharge Cardio: No chest pain, palpitations, PIERCE, orthopnea, peripheral edema Pulm: No SOB, cough, sputum, wheezing, dyspnea, hemoptysis, +wheezing, +sob, +cough GI: No nausea, vomiting, hematemesis, abdominal pain, diarrhea, constipation, hematochezia, melena : No irregular bleeding, dysuria, frequency, urgency, hesitancy, hematuria, flank pain, urinary flow changes, urinary incontinence or retention MSK: No back pain, neck pain, joint pain, myalgias Skin: No lesions, rashes Neuro: No weakness, numbness, paresthesias, LOC, dizziness, headache Psych: No anxiety/panic, depression, SI/HI, AH/VH All other systems reviewed and are negative. [facility] Past Medical History Attestation statement: The following information was validated with the patient. Source: old records reviewed and nursing notes reviewed Medical History Pulmonary embolism History of kidney disease Pulmonary nodule Renal cell cancer Renal cell carcinoma of right kidney Chronic respiratory failure with hypoxia Pneumonitis ILD (interstitial lung disease) Surgical History History of right knee surgery (~10/2016) History of History of cholecystectomy Social History Social History Household Members: None Housing: Condominium Do you presently have visiting nurse or other home services: No Alcohol intake: former Patient Tobacco Use Status: Former Tobacco user Tobacco use type: Cigarette Years Smoked: 5 Advance Directives Date on File: 12/01/22 service: No Physical Exam ED Vital Signs: Vital Signs - 24 hr 07/20/23 08:41 07/20/23 09:41 07/20/23 09:49 Temperature 98 F Pulse Rate 100 88 Respiratory Rate 19 18 Blood Pressure 161/101 H Pulse Oximetry 95 93 94 Oxygen Delivery Method Room Air Room Air Nasal Cannula Oxygen Flow Rate 2 07/20/23 09:59 07/20/23 10:30 07/20/23 12:21 Temperature 97.0 F 97.6 F Pulse Rate 94 100 Respiratory Rate 16 16 Blood Pressure 149/93 H 165/99 H Pulse Oximetry 88 L 94 96 Oxygen Delivery Method Room Air Nasal Cannula Nasal Cannula Oxygen Flow Rate 2 2 07/20/23 13:57 Temperature 97.6 F Pulse Rate 100 Respiratory Rate 18 Blood Pressure 165/99 H Pulse Oximetry 96 Oxygen Delivery Method Room Air Oxygen Flow Rate BMI result Body Mass Index 29.3 Vital signs stable Const General: cooperative, healthy appearing, comfortable and no acute distress Orientation/consciousness: patient oriented x3 Limitations: no limitations HENMT Head: Yes normal to inspection, Yes No palpable skull fracture present, Yes normocephalic and Yes atraumatic Neck Neck: Yes no meningeal signs Resp Other: + expiratory wheezes throughout. no crackles. Effort & Inspection: normal respiratory effort and able to speak in complete sentences Cardio Other: No peripheral edema Jugular venous distension: no JVD Rate: regular rate Rhythm: regular rhythm GI Inspection: Yes normal to inspection Skin General skin exam: no rashes or lesions noted Neuro General: patient oriented x3, gait normal, no meningeal signs and no focal motor deficits Extrem General: Yes normal to inspection, Yes full ROM and Yes capillary refill normal Course Course Course Narrative: 1103-- CBC without leukocytosis or left shift. No anemia. H&H stable. Chemistry without acute electrolyte abnormality requiring intervention. Troponin undetectable. BNP elevated at 212. EKG showing atrial fibrillation with a rate of 92 beats per minute, QT 368, QTC 445, no acute ischemic changes or ST elevations. Patient in afib on arrival- now normalized. HR between 70-90, NSR. No crackles on exam. No JVD or peripheral edema. Low suspicion for CHF. She is tested negative for COVID, flu, RSV. There is high suspicion for pertussis. Respiratory panel pending. CT chest pending. 1331--respiratory panel negative. > on re-evaluation, patient frustrated with long wait time and expresses that she would like to leave. I discussed all lab work up and serology results with her. I explained that radiology is currently backed up with imaging reads and it could be another hour or two before her CT read results. I expressed to her that if she leaves before this imaging results, I will have no way of contacting her or following up regarding this. She states that she will follow up via her patient portal and will have her PCP and wood drilling machine operator request these results. I have extremely low suspicion for acute PE as patient is currently anticoagulated. She continues to follow up with wood drilling machine operator regularly for lung nodule and has an outpatient CT chest currently scheduled. At this time, patient's vitals are stable. She is saturating 96% on 2 L nasal cannula which is her baseline. Not hypoxic or symptomatic with ambulation. She is well appearing and reports improvement in breathing and cough post decadron and albuterol admin. I feel she is safe for discharge at this time as she verbalizes understanding regarding prompt follow up on imaging reads. prednisone will be sent to pharmacy. I offered to send albuterol as well however she states that she would rather have this prescribed by her wood drilling machine operator. Patient has remained stable throughout ED visit today. Discussed worrisome signs and symptoms and when to return to the ED. All questions answered at this time. Patient is agreeable with disposition and stable for discharge. Medications Administered Discontinued Medications Generic Name Dose Route Start Last Admin Trade Name Freq PRN Reason Stop Dose Admin Albuterol/Ipratropium 3 ml 07/20/23 10:23 07/20/23 10:26 Albuterol/Iprat 2.5/0.5mg 3 Ml Ampul.Neb INHALE 07/20/23 10:24 3 ml ONCE ONE Administration Dexamethasone Sodium Phosphate 10 mg 07/20/23 10:22 07/20/23 10:58 Dexamethasone Sod Phosphate 10 Mg/Ml Vial IVPUSH 07/20/23 10:23 10 mg ONCE ONE Administration Medical Decision Making Medical Decision Making [facility] Narrative: 82 year old female with pmhx significant for HTN, uncontrolled afib, recent PE on warfarin, interstitial lung disease, pulmonary nodule, renal cell carcinoma of right kidney presents to the ED today for evaluation of cough x1 day. Patient is hypertensive to 149/93. Satting 94% on nasal cannula. She is afebrile. She is nontoxic-appearing and in no acute distress. Well-appearing. No acute distress. On exam, no respiratory distress noted. There are diffuse expiratory wheezes. No crackles. Regular rate and rhythm. No murmurs rubs or gallops. No JVD or peripheral edema. Ambulating with steady gait. Differential diagnosis includes viral syndrome, bronchitis, pneumonia, pertussis, anemia, electrolyte abnormality. Low suspicion for PE, CHF, pleural effusion. Unlikely ARDS, ACS, arrhythmia. Plan for labs, viral serology, respiratory panel, CT chest, EKG, re-evaluation. Differential Diagnosis Differential Diagnoses: The differential diagnosis associated with the presentation includes As above Admission/Observation Consideration of admission/observation: Escalation of care including admission/observation considered Admission considered on presentation Lab Data MDM Lab Attestation statement: I reviewed the patient's lab results. As above 07/20/23 09:10 07/20/23 09:09 Labs: Lab Results 07/20/23 07/20/23 07/20/23 Range/Units 09:09 09:10 10:33 WBC 10.1 (4.8-10.8) X10*3/uL RBC 4.31 (4.20-5.50) X10*6/uL Hgb 12.2 (12.0-16.0) g/dl Hct 37.7 (37.0-47.0) % MCV 87.5 (80.0-98.0) fL MCH 28.3 (27.0-33.0) pg MCHC 32.4 (31.0-35.0) g/dl RDW 14.4 (11.0-16.0) % Plt Count 305 D (160-400) X10*3/uL MPV 9.0 L (9.4-12.3) fL Immature Gran % (Auto) 0.8 H (0.0-0.4) % Neut % (Auto) 74.8 H (45-73) % Lymph % (Auto) 14.4 L (20-40) % Osborne % (Auto) 7.0 (2-11) % Eos % (Auto) 2.5 (0-4) % Baso % (Auto) 0.5 (0-2) % Lymph # (Auto) 1.5 (1.2-4.9) X10*3/uL Osborne # (Auto) 0.7 (0.1-1.2) X10*3/uL Eos # (Auto) 0.3 (0.0-0.4) X10*3/uL Baso # (Auto) 0.1 (0.0-0.2) X10*3/uL Abs Immat Gran (auto) 0.08 H (0.00-0.03) X10*3/uL Absolute Neuts (auto) 7.5 (2.0-8.3) x10*3/uL Absolute Nucleated RBC 0.000 (0.0-0.012) X10*3/uL Nucleated RBC % (auto) 0.0 (0.0-0.2) /100WBC PT 49.0 H D (11.1-13.3) SEC INR 4.0 H D (0.9-1.1) Sodium 139 (135-145) mmol/L Potassium 3.5 (3.3-5.1) mmol/L Chloride 104 (96-108) mmol/L Carbon Dioxide 26 (22-29) mmol/L Anion Gap 13 (12-20) BUN 13 (9-16) mg/dL Creatinine 0.62 (0.5-1.4) mg/dL Estim Creat Clear Calc 62.2 Estimated GFR > 60 Random Glucose 115 (60-115) mg/dL Calcium 9.6 (8.4-10.2) mg/dL Troponin I High Sens < 2.7 (<3.5-17.0) ng/L B-Natriuretic Peptide 212 H (<100) pg/mL Respiratory Panel Pena See Note Adenovirus (Rapid PCR) Not Detected (Not Detect.) B.pert (TEM-PCR) Not Detected (Not Detect.) B.parapertussis DNA PCR Not Detected (Not Detect.) C. pneumoniae DNA (PCR) Not Detected (Not Detect.) Coronavirus OC43 (PCR) Not Detected (Not Detect.) Coronavirus HKU1 (PCR) Not Detected (Not Detect.) Coronavirus 229E (PCR) Not Detected (Not Detect.) Coronavirus NL63 (PCR) Not Detected (Not Detect.) Human Metapneumovir PCR Not Detected (Not Detect.) Influenza A (RT-PCR) Not Detected (Not Detect.) Influenza Type A (PCR) NEGATIVE (Negative) Influenza B (RT-PCR) Not Detected (Not Detect.) Influenza Type B (PCR) NEGATIVE (Negative) M. pneumoniae (PCR) Not Detected (Not Detect.) Parainfluenza 1 (PCR) Not Detected (Not Detect.) Parainfluenza 2 (PCR) Not Detected (Not Detect.) Parainfluenza 3 (PCR) Not Detected (Not Detect.) Parainfluenza 4 (PCR) Not Detected (Not Detect.) RSV (PCR) Not Detected (Not Detect.) RSV RNA Qual (PCR) NEGATIVE (Negative) Entero/Rhino (PCR) Not Detected (Not Detect.) SARS-CoV-2 RNA (RT-PCR) NEGATIVE Not Detected (Negative) Independent Interpretation I performed an independent interpretation of an: EKG and CT Scan Interpretation: EKG showing atrial fibrillation with a rate of 92 beats per minute, QT 368, QTC 445, no acute ischemic changes or ST elevations. Radiology Impression Discussion of test interpretation with radiology: I have reviewed the radiologist's reading. Radiologist Impression: EXAMINATION: CT CHEST WITHOUT CONTRAST CLINICAL INFORMATION: Follow-up spot on lung COMPARISON: Previous chest CT February 2023 and chest x-ray December 2022 TECHNIQUE: Multidetector volumetric CT imaging of the chest was done. Axial MIP volume rendering provided. Sagittal and coronal reformatted images were obtained. This CT examination was performed using dose optimization techniques as appropriate, variously including the following: *Automated exposure control *Adjustment of mA and/or kV according to patient size (this includes techniques or standardized protocols for targeted exams where dose is matched to indication/reason for exam; i.e. extremities or head) *Use of iterative reconstruction technique DLP: 291 mGy-cm FINDINGS: LUNGS: There are multiple new semisolid nodular opacities seen throughout both lungs. Largest measure 2 x 3 cm at the left lung apex axial image 9, 1 cm in the right upper lobe axial image 13, 1 x 1.4 cm in the left lower lobe superior segment axial image 20 and 1.5 x 2.3 cm in the right lower lobe axial image 31 series 3. There are additional areas of solid station and groundglass attenuation with some air bronchograms seen throughout the lungs greatest in the bilateral upper lobes for example in the right upper lobe axial image 27 and in the left upper lobe axial image 20 series 3. These findings are new from prior CT February 2023. There is still diffuse mosaic attenuation to the lung parenchyma and areas of increased linear reticulation or fibrosis. MEDIASTINUM: The right lobe of the thyroid gland is enlarged. No focal nodule is appreciated. There are prominent mediastinal lymph nodes. These appear increased from February 2023 exam. Largest lymph node is a precarinal lymph node measuring 1.7 cm in short axis. Evaluation for hilar adenopathy limited without IV contrast. The pulmonary arteries upper normal in size, main pulmonary artery measuring 3.1 cm. Normal heart size. Tortuous normal caliber thoracic aorta. No pericardial effusion. CORONARY ARTERY CALCIFICATION: Mild PLEURA: There is no pleural effusion. No pleural mass or thickening. AXILLA: No lymphadenopathy. UPPER ABDOMEN: Partially visualized heterogeneous lesion exophytic to the lateral upper pole of the right kidney. This contains low-attenuation and fatty components. Review of prior CT August 2021 demonstrates a 3.3 cm homogeneous lesion similar attenuation to the renal cortex and this may represent a treated lesion. Clinical correlation recommended. Mild diverticulosis of the colon. OSSEOUS STRUCTURES: Degenerative changes of the spine. CT/CT chest wo IV con IMPRESSION: Innumerable new semisolid nodular opacities throughout the lungs and areas of airspace disease and groundglass attenuation. This is seen on a background of heterogeneous mosaic attenuation and increased linear reticular markings or fibrosis. Slightly enlarged mediastinal lymph nodes. Acute alveolitis related to chronic interstitial lung disease and acute alveolitis should be considered, in particular nonspecific interstitial pneumonitis or sarcoidosis. Infection and neoplastic process cannot be excluded. Imaging follow-up recommended. Right renal lesion as described above. Clinical correlation recommended. Fleischner guidelines were followed. External Record Review External record reviewed: Inpatient record, Office record, Outpatient record, Prior outpatient labs, Prior outpatient radiology, Primary care record and Outside ED record Prescription Management I considered prescription management with: Other (prednisone) Chronic Conditions Patient?s care impacted by: Other (Interstitial lung disease, atrial fibrillation) Social Determinants Patient?s care significantly limited by Social Determinants of Health including: Other Social Determinant of Health Critical Care Time Critical Care Time Critical Care Time: No Discharge Plan Discharge Clinical Impression: Upper respiratory disease Patient Disposition: Home, Self-Care Additional Instructions: Your labs today are reassuring. Her EKG shows atrial fibrillation. You tested negative for COVID, flu, RSV. The rest of your respiratory panel was negative. You were choosing to leave before the CT scan of your chest is read. As discussed, you can view these results on your patient portal. Your PCP can also request the read of this scan. Please follow up regarding this imaging as I will be unable to follow up once you leave this department. Prednisone as a steroid that has been sent to your pharmacy. Take this over the next 4 days. You were given 1 dose of steroids in the ED today. Start this medication tomorrow. You have also been treated with Duoneb by respiratory therapy. Return with new or worsening symptoms. In the case of an emergency call 911. Prescriptions: New prednisone 20 mg tablet 20 mg PO DAILY 4 Days Qty: 4 0RF No Action digoxin 250 mcg (0.25 mg) tablet 0.25 mg PO DAILY Qty: 30 8RF cholecalciferol (vitamin D3) 25 mcg (1,000 unit) capsule 25 mcg PO DAILY atenolol 25 mg tablet 50 mg PO BID losartan 50 mg tablet 50 mg PO DAILY Qty: 30 5RF warfarin 5 mg tablet 5 mg PO DAILY Protocol: Dose Management Condition: Tuesday (Week One) Dose/Route: 7.5 mg Instruction: 1.5 x 5 mg tablets Condition: Tuesday Dose/Route: 5 mg Instruction: 1 x 5 mg tablet Condition: Tuesday Dose/Route: 7.5 mg Instruction: 1.5 x 5 mg tablets Condition: Tuesday Dose/Route: 5 mg Instruction: 1 x 5 mg tablet Condition: Dose/Route: 0 mg Instruction: 0 tablets Condition: Tuesday Dose/Route: 2.5 mg Instruction: 0.5 x 5 mg tablets Condition: Tuesday Dose/Route: 7.5 mg Instruction: 1.5 x 5 mg tablets Condition: Tuesday (Week Two) Dose/Route: 7.5 mg Instruction: 1.5 x 5 mg tablets Condition: Tuesday Dose/Route: 5 mg Instruction: 1 x 5 mg tablet Condition: Tuesday Dose/Route: 7.5 mg Instruction: 1.5 x 5 mg tablets Condition: Tuesday Dose/Route: 5 mg Instruction: 1 x 5 mg tablet Condition: Dose/Route: 7.5 mg Instruction: 1.5 x 5 mg tablets Condition: Tuesday Dose/Route: 5 mg Instruction: 1 x 5 mg tablet Condition: Tuesday Dose/Route: 7.5 mg Instruction: 1.5 x 5 mg tablets Protocol Text: Adjustment Start Date: 07/21/23 INR Value: 4.4 INR Date: 07/21/23 Recheck Date: 07/25/23 Additional Instructions: REVIEW FOOD LIST WEEKLY, TRY TO EAT A SERVING OF GREENS TODAY IF ABLE, AVOID FOODS THAT RAISE THE INR TODAY AND TOMORROW. CALL WITH ANY UNUSUAL BLEEDING OR BRUISING, OVER THE WEEKEND PLEASE CALL YOUR MD OR GO TO ER cefprozil 500 mg tablet 500 mg PO BID Arnuity Ellipta 100 mcg/actuation blister with device 1 inh inhalation DAILY 30 Days Qty: 30 11RF Referrals: Darrell Sutherland MD [Primary Care Provider] - Interventions: ED Discharge Assessment Last Done: 07/20/23 13:57 Discharge Date/Time: 07/20/23 13:59 Print Language: Malawian
[2023-07-20 09:59] LABS: Influenza A PCR NEGATIVE (Negative); Influenza B PCR NEGATIVE (Negative); Resp Syncy Virus RNA Qual PCR NEGATIVE (Negative); SARS COV2 PCR INHOUSE NEGATIVE (Negative)
[2023-07-20] MEDS: Albuterol/Iprat 2.5/0.5MG 3 ML AMPUL.NEB INHALE (10:26)
[2023-07-20] MEDS: dexAMETHasone sod phosphate 10 MG/ML VIAL IVPUSH (10:58)
[2023-07-20 12:02] LABS: Adenovirus PCR Not Detected (Not Detect.); Bordetella parapertussis PCR Not Detected (Not Detect.); Bordetella pertussis PCR Not Detected (Not Detect.); Chlamydia pneumoniae PCR Not Detected (Not Detect.); Coronavirus 229E PCR Not Detected (Not Detect.); Coronavirus HKU1 PCR Not Detected (Not Detect.); Coronavirus NL63 PCR Not Detected (Not Detect.); Coronavirus OC43 PCR Not Detected (Not Detect.); Human metapneumovirus PCR Not Detected (Not Detect.); Influenza A PCR Not Detected (Not Detect.); Influenza B PCR Not Detected (Not Detect.); Mycoplasma pneumoniae PCR Not Detected (Not Detect.); Parainfluenza 1 PCR Not Detected (Not Detect.); Parainfluenza 2 PCR Not Detected (Not Detect.); Parainfluenza 3 PCR Not Detected (Not Detect.); Parainfluenza 4 PCR Not Detected (Not Detect.); RSV PCR Not Detected (Not Detect.); Rhino/Enterovirus PCR Not Detected (Not Detect.)
[2023-07-20 13:08] LABS: SARS-CoV-2 PCR Not Detected (Not Detect.)
== END 2023-07-20 13:59 | disposition home or self-care (01) ==
PROVIDERS: Physician Assistant Medical; Emergency Provider Emergency Medicine; PCP Internal Medicine
DX: J96.11 Chronic respiratory failure with hypoxia (principal); R07.9 Chest pain, unspecified; R05.9 Cough, unspecified; R06.02 Shortness of breath; R91.8 Other nonspecific abnormal finding of lung field; J84.9 Interstitial pulmonary disease, unspecified; I10 Essential (primary) hypertension; I48.91 Unspecified atrial fibrillation; C64.9 Malignant neoplasm of unspecified kidney, except renal pelvis; Z86.711 Personal history of pulmonary embolism; Z79.01 Long term (current) use of anticoagulants; Z79.899 Other long term (current) drug therapy; Z87.891 Personal history of nicotine dependence; Z03.818 Encounter for observation for suspected exposure to other biological agents ruled out
CPT/HCPCS: 0241U; 71250; 80048; 83880; 84484; 85025; 85610; 87633; 93005; 99285; J1100

== ENCOUNTER → 2023-07-20 08:48 | Outpatient (BNV) | payer MEDICARE, SELFPAY | PROVIDERS: Emergency Provider Emergency Medicine; PCP Internal Medicine; Visit Provider Internal Medicine | DX: I48.91 Unspecified atrial fibrillation (principal); R94.31 Abnormal electrocardiogram [ECG] [EKG] | CPT/HCPCS: 93010 ==

== ENCOUNTER 2023-07-21 10:16 | Outpatient (AMB) | payer MEDICARE, SELFPAY ==
[2023-07-21 10:45] LABS: Prothrombin Time Whole Bld POC 53.3 sec (11.1-13.5); ~PT, ~INR - Anti Coag Clinic 4.4 (0.9-1.1)
--- NOTE | 2023-07-21 11:03 | MHC.OFFVISCO ---
Intake Intake Visit Reasons: Anticoagulation Allergies amlodipine Allergy (Intermediate, Verified 07/21/23 10:36) Difficulty Breathing latex [LATEX] Allergy (Intermediate, Verified 07/21/23 10:36) RASH seasonal Allergy (Intermediate, Uncoded 07/21/23 10:36) Sneezing altace Adverse Reaction (Mild, Uncoded 07/21/23 10:36) Cough Medication List - Last Reconciled 07/21/23 by Farheen Pruett RN atenolol 50 mg PO BID cefprozil 500 mg PO BID cholecalciferol (vitamin D3) 25 mcg PO DAILY digoxin 0.25 mg PO DAILY fluticasone furoate 100 mcg/actuation (Arnuity Ellipta) 1 inh inhalation DAILY 30 days losartan 50 mg PO DAILY prednisone 20 mg PO DAILY 4 days warfarin 5 mg See Protocol PO DAILY Nursing Note INR 4.4? out of therapeutic range Medications and supplements reviewed Patient status: S/P ER VISIT FOR URI - HAS NOT FELT WELL FOR ABOUT 1 WEEK WITH COLD LIKE SYMPTOMS AND DIFFICULTY BREATHING, INR YESTERDAY 4.0 - NO INSTRUCTIONS PER PT TO HOLD WARFARIN Medications or supplements: ON PREDNISONE 20MG DAILY X 5 DAYS STARTED YESTERDAY/COMPLETING AN ANTBX TODAY - CEFPROZIL -NO INTERACTION PER MICROMEDEX - HOWEVER UPTODATE STATES MAY ENHANCE WARFARIN EFFECTS AND TO MONITOR THERAPY Diet: Decreased due to illness Denies any signs and symptoms of bleeding or clotting or unusual bruising Bleeding, bruising, clotting discussed Nutritional guidance given: a serving of greens - to not over compensate with greens, avoid foods that raise the INR today and tomorrow Dose: hold today 2.5mg tomorrow due to elevated INR, antbx, and decreased appetite F/U INR Date : 07/25/23?? Patient verbalizing understanding of instructions given. 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 Illness/Depression: No Coding Level of Care Code Est Patient Level 1 Diagnoses Current use of anticoagulant therapy Z79.01 Assessment & Plan Assessment & Plan (1) Current use of anticoagulant therapy: Code(s): Z79.01 - [facility] (current) use of anticoagulants Category: Medical
== END 2023-07-21 11:17 | disposition home or self-care (01) ==
LOC: HO.ACS 10:16
PROVIDERS: PCP Internal Medicine; Visit Provider Internal Medicine
DX: Z79.01 Long term (current) use of anticoagulants (principal)

== ENCOUNTER → 2023-07-21 10:16 | Outpatient (BNVA) | payer MEDICARE, SELFPAY | PROVIDERS: PCP Internal Medicine; Visit Provider Internal Medicine | DX: I48.19 Other persistent atrial fibrillation (principal); I26.99 Other pulmonary embolism without acute cor pulmonale; Z79.01 Long term (current) use of anticoagulants; Z51.81 Encounter for therapeutic drug level monitoring | CPT/HCPCS: 85610; 99211 ==

== ENCOUNTER → 2023-07-25 09:09 | Outpatient (BNVA) | payer MEDICARE, SELFPAY | PROVIDERS: PCP Internal Medicine; Visit Provider Internal Medicine | DX: I48.19 Other persistent atrial fibrillation (principal); I26.99 Other pulmonary embolism without acute cor pulmonale; Z51.81 Encounter for therapeutic drug level monitoring; Z79.01 Long term (current) use of anticoagulants | CPT/HCPCS: 85610; 99211 ==

== ENCOUNTER 2023-07-26 14:45 | Outpatient (AMB) | payer MEDICARE, SELFPAY ==
[2023-07-26 15:00] VITALS: PULSE 90; O2SAT 94; BMI 30.3
--- NOTE | 2023-07-26 15:00 | A.OFFVIS_ITS ---
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 The patient states that she has been feeling otherwise well. Denies any significant shortness of breath or cough or any chest discomfort. However, she does state that she lives in a very small [facility] and she does not do a lot of walking. She went to see her primary care doctor who checked her pulse oximeter and was noted to be low. Therefore she had additional imaging studies including a CT scan of the chest that was found to be abnormal. I did personally viewed the CT scan demonstrating areas of mosaic pattern is of ground-glass opacities and also some reticular changes primarily in the lingula. The patient denies any significant exposure to any fumes or toxins. Denies any hobbies with any exposures to organic or inorganic dusts. She denies any exposure to any farm animals or farm or hay. She does not have any pets. She denies any mold in the household. The interesting part of the story is that the patient has a identical twin who lives in [place]. At the same time that she was undergoing a CT scan of the chest for further evaluation of underlying interstitial lung disease the patient is identical sister was also going to the same process. She is also going to see a specialist. The details of that evaluation are not available at this time. She denies any significant rashes or joint pains or muscle discomfort or muscle w eakness. During the office visit we did go for 6 minute walk test. The patient did desaturate down to 88%. She had a dyspnea score of 3/10 and did go up to 4-10 when she was a little more hypoxic. We did rest for a minute and her oxygen improved to the low 90s. The patient did qualify for oxygen but she does not 1 at this time. 12/03/2021 the patient is here for a pulmonary follow-up visit. She is here with her sister. She did take the prednisone. The prednisone made her feel better although did not really help her breathing symptoms. She really denies any significant dyspnea on exertion. She walks regularly and also uses a recumbent bike and denies any significant shortness of breath. We did review her blood work which was relatively negative except for a positive RD with the very low titer of 01:40. There is no real history of connective tissue conditions in the family. There is a history pulmonary fibrosis. Both her mother and also her sister that is being evaluated at this time. Her last CT scan did demonstrate reticular changes in addition to ground-glass opacities. 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 During the visit the patient did have evidence of bilateral crackles and her 6 minutes walk test she desaturated down to about 86%. Her dyspnea score was 5/10 during. based on that explained to the patient that she needs to start oxygen supplementation with activity. She is a bit reluctant but she is willing to try for now. Will plan to repeat the CT scan and then follow up with a painful to see you if there is no significant progression of the pulmonary fibrosis. With talk about considering all to have a biopsy although patient is at this point reluctant to do so. Would not be unreasonable to keep the patient on small dose of prednisone for that reason. Indeed she has worsening fibrotic changes using wanted fibrotic agent would also be an option. 01/12/2022 the patient is here with her daughter for pulmonary follow-up visit. She has been on the 10 mg of prednisone. She is concerned because of the adverse effects of the medication and affecting her sleep. We did keep her on the prednisone in view of the elevated RD and also the elevation in the eosinophils which may manifest with an interstitial process. Specially since she did have some areas of ground-glass opacities suggesting pneumonitis. The patient however denied a see any significant improvement or difference. She did have a repeat CT scan of the chest and we personally reviewed that together. We also compared to her last CT scan that she had several months back. Appears to be some interval increase in the degree of reticulations and pulmonary fibrosis primarily on the left lung more than the right. She still has areas of ground-glass opacities in addition to mosaic pattern. No clear etiology for the interstitial lung disease based on the blood work. The patient is not interested in pursuing any invasive diagnostic interventions such as biopsies. Clinically the patient is doing well and she denies any respiratory symptoms at all. All this came about because she was noted to have an abnormal CT scan when she was referred to Pulmonary. She did have 2 6 minutes walk test both that were consistent with hypoxia qualify for oxygen. The patient also had an overnight oximetry demonstrating significant hypoxia while sleeping at least for close to 3 hours for she spent below 88%. Therefore the patient needs to continue using the oxygen with activity and also at nighttime while sleeping. She is adamant that she has wants to get an [employer] portable oxygen concentrator. Will go ahead and fill out some paperwork in order for her to receive that. the patient is wondering if she is going to have to stay on the oxygen. I did recommend that she continue to use it for now and we will retest her once she returns in . Patient is going to be weaning off the prednisone at this time. And the patient is not interested in any antifibrotic therapy at this time. Based on her clinical presentation during the next visit we can discuss further anti fibrotic therapy if she would like. Patient does have a lot of questions about her condition and the fact that she is fairly asymptomatic. The fact that her 20 sister also found to have some interstitial lung changes which she does not require oxygen and she is questioning the whole process. I can only tolerate that we have tested her multiple times and all times have demonstrated evidence of hypoxia even on the day of presentation the patient is stands that using the oxygen will help her with her organ function including heart brain and other end-organ functions. Her her daughter was wondering about a diagnosis next Plain to her for now based on the fact that there is some progression the possibility of idiopathic pulmonary fibrosis needs to be in differential. Explained to the patient and the daughter that with the idiopathic pulmonary fibrosis the fibrosis is progressive. Therefore, will continue to monitor for any progression of disease. 05/06/2022 the patient is here for a pulmonary preoperative evaluation. Overall the patient has been doing about the same from a respiratory status. She continues use the oxygen with activity and sleep. She denies any worsening shortness breath or any new respiratory complaints. She denies any evidence of any active connective tissue disease. She has been off all corticosteroid therapy. She was found to have a renal mass. Concerning for malignancy. Now after being evaluated by Urology see felt that she requires full nephrectomy. Because of her underlying respiratory disease stable also recommending ablation. We did review her spirometry also her PFTs from last year in addition to her 6 minutes walk test. Based on this the patient does have increased risk for perioperative pulmonary complications. However, she is medically optimize any condition is not worsening. Therefore, I do believe that she will tolerate general anesthesia and will tolerate her surgery. She will have increased risks including further hypoxia in addition to risk for pneumonia and atelectasis. Currently she is medically optimized from a pulmonary standpoint. She does not need any bronchodilator therapy. She is using her oxygen effectively. After she recovers from her surgery will reassess her underlying interstitial lung disease with a repeat CT scan and PFTs. At that point we can decide if there is any evidence of any progression to consider small dose steroids versus antifibrotic therapies. 09/21/2022 the patient is here for pulmonary follow-up visit. She recovering well from her surgery. She did have increased shortness of breath after surgery. She did follow-up in the office and was reassuring that everything was okay. The patient has been using the oxygen a little bit more often specially after surgery. she was having issues with high blood pressure she was started on a new blood pressure medication. After the medication she noticed that oxygen actually dropped to 84% which became very concerning for her. Therefore she stopped that medicine which was amlodipine. Seems that her blood pressure is better at this time. The patient also underwent a CT scan of the chest which I personally reviewed with her and her daughter. It appears some slight increase in the reticular changes primarily in the left side. There is also evidence of ground-glass opacities suggestion a component of inflammation or likely subtle scarring. Patient does have a history of slightly elevated connective tissue disease laboratory suggesting the possibility of connective tissue disease related pulmonary fibrosis. She had been on prednisone before and she did tolerated fairly well. She is willing to try smaller dose to see if she can tolerated and try to minimize progression of the scarring. Another option is to consider antifibrotic agent specially with slight worsening of disease. She is going to consider this as well. Will go ahead and start her on therapy with prednisone 10 mg daily and she is going to taper down to the lowest most effective dose which I hope is going to be 10 mg every other day. She is going to monitor closely her oxygen supplementation. Also to note that she does have a twin with very similar condition and she is also now on a small dose of prednisone. She is reassured I am also reassured that the amount of progression appears to be fairly minimal in a year's time. We did talk about pulmonary rehabilitation. The patient would really benefit from rehabilitation at this time specially now that she is recovering from her renal cell cancer surgery. 12/23/2022 the patient is here for a pulmonary follow-up visit. Apparently she was hospitalized earlier this month after developing significant tachycardia while at pulmonary rehab. She was referred down to the [facility] ER where she was diagnosed with atrial fibrillation and also had a CTA demonstrating pulmonary emboli. Therefore the patient was admitted to the hospital. She was evaluated by Cardiology. She has been on Eliquis since that hospitalizations. Her oxygen requirements are about the same. I did review her CT scan of the chest. She does have significant mosaic pattern a little bit more than before. In addition to that the pulmonary emboli noted right more than left. The patient also has a nodular density measuring around a cm in the right upper lobe area. The patient is also scheduled to undergo and MRI coming up for history of renal cancer. She continues on the prednisone every other day. At this point will continue with that does specially since she is concerned about the potential adverse effects of prednisone. she continues in atrial fibrillation but she is rate controlled. At this point the patient will continue with the Eliquis and her respiratory therapy. The patient will undergo a repeat CTA in 3 months' time to assess the resolution of the clots in addition to that to follow-up with the 1 cm subsolid nodular density in the right upper lobe. 04/22/2023 the patient is here for a pulmonary follow-up visit. The patient overall has been feeling well. She did stop the prednisone as she was concerned about the adverse effects. Still having dyspnea on exertion [id number] severity. She does use her oxygen with sleep and also with activity. She has a POC. She was participating in the pulmonary rehabilitation but then started developing issues with atrial fibrillation and also shoulder issues. She is currently working with orthopedic surgery and Cardiology. At this point though she is doing better and she is able to go back to pulmonary rehabilitation at this time. She is still getting physical therapy at home for her shoulder so therefore she would have to wait until that is completed. The patient did have a CT scan of the chest that I personally reviewed with her. The patient does have evidence of mosaic pattern suggesting air trapping. Appears to have gotten slightly more pronounced. Maybe the fact that she has no longer on prednisone. The interstitial lung disease looks about the same. Therefore we can hold off on the idea of Ofev. The patient is agreeable to starting a inhaled corticosteroid. The patient is going to be having an MRI of the abdomen to re-evaluate her history of renal cancer. We were monitoring 1 pulmonary nodule that was in the right hemithorax. However, it does not appear to be present and her current CT scan which is reassuring. Otherwise the patient is doing well. Will plan to follow-up in 6 months. 07/26/2023 the patient is here for sick visit. Apparently she had been having worsening respiratory symptoms cough chest congestion. She had gotten a chest x-ray that was abnormal. She was placed on antibiotics which is cephalosporin. She had a hard time tolerating the medicine. She took it. Affected her Coumadin INR. The patient did have a CT scan of the chest done. I personally reviewed the images. Patient does have masslike consolidation bilaterally. Some areas of ground-glass opacities and airspace disease. Also nodular densities. We did compared to the CT scan she had back in 03/12/2023 where she had the ground-glass opacities and interstitial lung disease but no evidence of any nodular densities. Also the patient did have an MRI the kidney and everything is fine her report. I did review the masslike consolidations with the patient. Appears to be more consistent with an infectious process. Likely walking pneumonia could be a viral syndrome that may have been superimposed on bacterial infection such as staph aureus. The antibiotics did help. Will go ahead and give her a 2nd course of antibiotics with doxycycline. I also send a message to the Coumadin clinic to make sure they monitor her INR. The patient already scheduled to have a repeat CT scan September 14 which I believe is reasonable. We did contemplate a PET scan but at this point based on her respiratory illness the PET scan would also sharp activity in infectious process therefore making it less accurate. Therefore the CT with contrast would be a very good study for follow-up. The patient understands that if she has any residual nodular densities of any concern will order a PET scan at that point. If she develops any worsening symptoms she should also call for an earlier assessment. The patient also will complete the antibiotics and after that she can go back to pulmonary rehabilitation as it is important for her to continue to exercise regularly. [facility] Medical History (Updated 07/26/23 @ 21:47 by Travis Monge MD) Pulmonary nodules Pulmonary embolism History of kidney disease Pulmonary nodule Renal cell cancer Renal cell carcinoma of right kidney Chronic respiratory failure with hypoxia Pneumonitis ILD (interstitial lung disease) Surgical History History of right knee surgery (~10/2016) History of History of cholecystectomy Social History Household Members: None Housing: Condominium Do you presently have visiting nurse or other home services: No Alcohol intake: former Patient Tobacco Use Status: Former Tobacco user Tobacco use type: Cigarette Years Smoked: 5 Advance Directives Date on File: 12/01/22 service: No Review of Systems Const Denies fever(s) and Denies night sweats Eyes Denies change in vision ENT Denies dizziness Card Denies chest pain, Reports palpitations, Denies dyspnea and Reports dyspnea on exertion Resp Denies chest congestion, Reports cough, Denies dyspnea, Reports dyspnea on exertion and Denies wheezing GI Reports no additional complaints Reports as per HPI Musc Reports as per HPI, Reports myalgias, Reports arthralgias and Reports limited range of motion Skin/Breast Denies rash Neuro Reports no additional complaints and Denies dizziness Endo Reports palpitations Aller/Immun Denies wheezing Physical Exam Vital Signs: Last Vital Signs Pulse 90 07/26/23 15:00 Pulse Ox 94 07/26/23 15:00 Oxygen Delivery Method Room Air 07/26/23 15:00 BMI result Body Mass Index 30.3 Const General: comfortable HEENT Head: Yes normal to inspection Neck Neck: Yes supple Chest Chest palpation & inspection: normal inspection of the chest Resp Effort & Inspection: normal respiratory effort Auscultation: no rhonchi and diminished lung sounds Cardio Rate: regular rate and tachycardic Rhythm: abnormal rhythm Heart sounds: S1 normal heart sound present and S2 normal heart sound present GI Auscultation: normal bowel sounds General: Yes no CVA tenderness Back/Spine/Pelvis Back: no CVA tenderness Skin General skin exam: no rashes or lesions noted Extrem General: Yes no clubbing, cyanosis or edema Results Reviewed Results Reviewed: [address] [address] [address] Scan Report Signed Patient: Sudha Meek MR#: [id number] : 1940 Acct:[id number] Age/Sex: 82 / F ADM Date: 07/20/23 Loc: HO.ED Attending Dr: Ordering Physician: Calista Akhtar Date of Service: 07/20/23 Procedure(s): CT chest wo IV con Accession Number(s): [id number] cc: Darrell Sutherland MD; Calista Akhtar~ EXAMINATION: CT CHEST WITHOUT CONTRAST CLINICAL INFORMATION: Follow-up spot on lung COMPARISON: Previous chest CT February 2023 and chest x-ray December 2022 TECHNIQUE: Multidetector volumetric CT imaging of the chest was done. Axial MIP volume rendering provided. Sagittal and coronal reformatted images were obtained. This CT examination was performed using dose optimization techniques as appropriate, variously including the following: *Automated exposure control *Adjustment of mA and/or kV according to patient size (this includes techniques or standardized protocols for targeted exams where dose is matched to indication/reason for exam; i.e. extremities or head) *Use of iterative reconstruction technique DLP: 291 mGy-cm FINDINGS: LUNGS: There are multiple new semisolid nodular opacities seen throughout both lungs. Largest measure 2 x 3 cm at the left lung apex axial image 9, 1 cm in the right upper lobe axial image 13, 1 x 1.4 cm in the left lower lobe superior segment axial image 20 and 1.5 x 2.3 cm in the right lower lobe axial image 31 series 3. There are additional areas of solid station and groundglass attenuation with some air bronchograms seen throughout the lungs greatest in the bilateral upper lobes for example in the right upper lobe axial image 27 and in the left upper lobe axial image 20 series 3. These findings are new from prior CT February 2023. There is still diffuse mosaic attenuation to the lung parenchyma and areas of increased linear reticulation or fibrosis. MEDIASTINUM: The right lobe of the thyroid gland is enlarged. No focal nodule is appreciated. There are prominent mediastinal lymph nodes. These appear increased from February 2023 exam. Largest lymph node is a precarinal lymph node measuring 1.7 cm in short axis. Evaluation for hilar adenopathy limited without IV contrast. The pulmonary arteries upper normal in size, main pulmonary artery measuring 3.1 cm. Normal heart size. Tortuous normal caliber thoracic aorta. No pericardial effusion. CORONARY ARTERY CALCIFICATION: Mild PLEURA: There is no pleural effusion. No pleural mass or thickening. AXILLA: No lymphadenopathy. UPPER ABDOMEN: Partially visualized heterogeneous lesion exophytic to the lateral upper pole of the right kidney. This contains low-attenuation and fatty components. Review of prior CT August 2021 demonstrates a 3.3 cm homogeneous lesion similar attenuation to the renal cortex and this may represent a treated lesion. Clinical correlation recommended. Mild diverticulosis of the colon. OSSEOUS STRUCTURES: Degenerative changes of the spine. CT/CT chest wo IV con IMPRESSION: Innumerable new semisolid nodular opacities throughout the lungs and areas of airspace disease and groundglass attenuation. This is seen on a background of heterogeneous mosaic attenuation and increased linear reticular markings or fibrosis. Slightly enlarged mediastinal lymph nodes. Acute alveolitis related to chronic interstitial lung disease and acute alveolitis should be considered, in particular nonspecific interstitial pneumonitis or sarcoidosis. Infection and neoplastic process cannot be excluded. Imaging follow-up recommended. Right renal lesion as described above. Clinical correlation recommended. Fleischner guidelines were followed. Dictated By: Corinna Mauricio MD Signed By: <Electronically signed by Corinna Mauricio MD in OV> 07/20/23 1702 DD/ 1213 TD/TT: Soap Drier Operator: ANDREW personally reviewd CT chest 06/2023, 02/2023, has worsening areas of GGO, mass like consolidations, pulmonary nodules. Assessment & Plan Assessment & Plan (1) Pneumonitis: Code(s): J18.9 - Pneumonia, unspecified organism Category: Medical (2) ILD (interstitial lung disease): Code(s): J84.9 - Interstitial pulmonary disease, unspecified Category: Medical (3) Chronic respiratory failure with hypoxia: Code(s): J96.11 - Chronic respiratory failure with hypoxia Category: Medical (4) Pulmonary embolism: Code(s): I26.99 - Other pulmonary embolism without acute cor pulmonale Category: Medical Qualifiers: Pulmonary embolism type: multiple subsegmental (without acute cor pulmonale) Qualified Code(s): I26.94 - Multiple subsegmental pulmonary emboli without acute cor pulmonale (5) Atrial fibrillation: Code(s): I48.91 - Unspecified atrial fibrillation Category: Medical Qualifiers: Atrial fibrillation type: persistent (not longstanding) Qualified Code(s): I48.19 - Other persistent atrial fibrillation (6) Renal cell cancer: Comment: Awaiting MRI, RUL pulmonary nodule resolved Code(s): C64.9 - Malignant neoplasm of unspecified kidney, except renal pelvis Category: Medical Qualifiers: Laterality: unspecified laterality Qualified Code(s): C64.9 - Malignant neoplasm of unspecified kidney, except renal pelvis (7) Pulmonary nodules: Code(s): R91.8 - Other nonspecific abnormal finding of lung field Category: Medical (8) Lung consolidation: Code(s): J18.1 - Lobar pneumonia, unspecified organism Category: Medical Plan Continue oxygen 2L pulse/cont with activity and 2L with sleep. complete Prednisone taper start doxycycline x 10 days restart pulmonary rehab once she completes antibiotics continue Eliquis, likely life long Has a scheduled CT chest with IV contrast in 6 weeks. If the nodules are persistent then we will request a PET. F/U 2 months Orders: Orders CT chest wo IV con Today R91.1 - Solitary pulmonary nodule Medications: New doxycycline hyclate 100 mg PO BID 20 caps 0RF 10 days Coding Level of Care Code Est Pt Level 5 (87018) Diagnoses Pneumonitis J18.9 ILD (interstitial lung disease) J84.9 Chronic respiratory failure with hypoxia J96.11 Multiple subsegmental pulmonary emboli without acute cor pulmonale I26.94 Pulmonary embolism type: multiple subsegmental (without acute cor pulmonale) Persistent atrial fibrillation I48.19 Atrial fibrillation type: persistent (not longstanding) Renal cell carcinoma, unspecified laterality C64.9 Laterality: unspecified laterality Pulmonary nodules R91.8 Lung consolidation J18.1 Time Spent (min) 40
== END 2023-07-26 15:30 | disposition home or self-care (01) ==
PROVIDERS: PCP Internal Medicine; Visit Provider Hospitalist
DX: J84.9 Interstitial pulmonary disease, unspecified (principal); J96.11 Chronic respiratory failure with hypoxia; I26.94 Multiple subsegmental thrombotic pulmonary emboli without acute cor pulmonale; R91.8 Other nonspecific abnormal finding of lung field; I48.19 Other persistent atrial fibrillation; C64.9 Malignant neoplasm of unspecified kidney, except renal pelvis; J18.1 Lobar pneumonia, unspecified organism
CPT/HCPCS: 99215

== ENCOUNTER → 2023-07-26 14:45 | Outpatient (BNVA) | payer MEDICARE, SELFPAY | PROVIDERS: PCP Internal Medicine; Visit Provider Hospitalist | DX: J18.1 Lobar pneumonia, unspecified organism (principal); J84.9 Interstitial pulmonary disease, unspecified; J96.11 Chronic respiratory failure with hypoxia; I26.94 Multiple subsegmental thrombotic pulmonary emboli without acute cor pulmonale; I48.19 Other persistent atrial fibrillation; C64.9 Malignant neoplasm of unspecified kidney, except renal pelvis; R91.8 Other nonspecific abnormal finding of lung field; Z79.01 Long term (current) use of anticoagulants | CPT/HCPCS: 99212 ==

== ENCOUNTER 2023-08-04 09:43 | Outpatient (AMB) | payer MEDICARE, SELFPAY ==
[2023-08-04 10:02] LABS: Prothrombin Time Whole Bld POC 51.3 sec (11.1-13.5); ~PT, ~INR - Anti Coag Clinic 4.3 (0.9-1.1)
--- NOTE | 2023-08-04 10:08 | MHC.OFFVISCO ---
Intake Intake Visit Reasons: Anticoagulation Allergies amlodipine Allergy (Intermediate, Verified 07/26/23 15:01) Difficulty Breathing latex [LATEX] Allergy (Intermediate, Verified 07/26/23 15:01) RASH seasonal Allergy (Intermediate, Uncoded 07/26/23 15:01) Sneezing altace Adverse Reaction (Mild, Uncoded 07/26/23 15:01) Cough Medication List - Last Reconciled 08/04/23 by Tricia Tan RN atenolol 50 mg PO BID cholecalciferol (vitamin D3) 25 mcg PO DAILY digoxin 0.25 mg PO DAILY doxycycline hyclate 100 mg PO BID 10 days fluticasone furoate 100 mcg/actuation (Arnuity Ellipta) 1 inh inhalation DAILY 30 days losartan 50 mg PO DAILY warfarin 5 mg See Protocol PO DAILY Nursing Note Amb to ACS feeling well Medications and supplements reviewed, completed prednisone and last dose doxycycline will be tomorrow No other changes in health, diet, medications, or supplements, Denies any signs and symptoms of bleeding or bruising or clotting. INR 4.3 above therapeutic range, somewhat expected secondary to doxycycline, sts also that she had watermelon over 2 days Dose: hold warfarin today, then resume usual dosing tomorrow (7.5mg x 4 days and 5mg x 3 days) Nutritional guidance given- cooked green today, likes spinach, cautioned to have just a serving of cooked spinach and to not have several, can add raw spinach to salads through the week Discussed bleed risk and safety concerns due to increase in INR F/U INR: 1 week Patient verbalizes understanding of instructions given Anti-Coag Initial Assessment Social Hx Patient Tobacco Use Status: Former Tobacco user Tobacco use type: Cigarette alcohol intake: former Alcohol intake frequency: does not drink Cardiovascular Hx: HTN, Arrhythmias and Other (atrial fib) Lung Disease HX: DVT/PE (blood clots in lungs 12/13) and Other (interstitial lung disease) Musculoskeletal Hx: Arthritis (bilateral knee, right total replacement) GI Hx: Bleeding (GI, rectal), Diverticulosis and Hemorrhoids Hx: Other (renal cell CA 12/13) Cancer HX: Yes Psych. Illness/Depression: No Coding Level of Care Code Est Patient Level 1 Diagnoses Current use of anticoagulant therapy Z79.01 Time Spent (min) 15 Assessment & Plan Assessment & Plan (1) Current use of anticoagulant therapy: Code(s): Z79.01 - [facility]PC (current) use of anticoagulants Category: Medical
== END 2023-08-04 10:19 | disposition home or self-care (01) ==
LOC: HO.ACS 09:43
PROVIDERS: PCP Internal Medicine; Visit Provider Internal Medicine
DX: Z79.01 Long term (current) use of anticoagulants (principal)

== ENCOUNTER → 2023-08-04 09:43 | Outpatient (BNVA) | payer MEDICARE, SELFPAY | PROVIDERS: PCP Internal Medicine; Visit Provider Internal Medicine | DX: I48.19 Other persistent atrial fibrillation (principal); I26.99 Other pulmonary embolism without acute cor pulmonale; Z79.01 Long term (current) use of anticoagulants; Z51.81 Encounter for therapeutic drug level monitoring | CPT/HCPCS: 85610; 99211 ==

== ENCOUNTER 2023-08-11 08:57 | Outpatient (AMB) | payer MEDICARE, SELFPAY ==
[2023-08-11 09:05] LABS: Prothrombin Time Whole Bld POC 36.4 sec (11.1-13.5)
--- NOTE | 2023-08-11 09:31 | MHC.OFFVISCO ---
Intake Intake Visit Reasons: Anticoagulation Allergies amlodipine Allergy (Intermediate, Verified 08/11/23 09:00) Difficulty Breathing latex [LATEX] Allergy (Intermediate, Verified 08/11/23 09:00) RASH seasonal Allergy (Intermediate, Uncoded 07/26/23 15:01) Sneezing altace Adverse Reaction (Mild, Uncoded 07/26/23 15:01) Cough Medication List - Last Reconciled 08/11/23 by Corinna Raphael RN atenolol 50 mg PO BID cholecalciferol (vitamin D3) 25 mcg PO DAILY digoxin 0.25 mg PO DAILY doxycycline hyclate 100 mg PO BID 10 days fluticasone furoate 100 mcg/actuation (Arnuity Ellipta) 1 inh inhalation DAILY 30 days losartan 50 mg PO DAILY warfarin 5 mg See Protocol PO DAILY Nursing Note PT.STATES THAT SHE IS FEELING MUCH BETTER AFTER RECENT RX WITH PRED AND ANTIBIOTIC. NO CP,SOB,DIET/MED CHANGES,FALLS OR SX OF BLEEDING. CONTINUE PRESENT DOSE AND FOLLOW-UP IN 2 WEEKS GOOD UNDERSTANDING OF DOSING INSTR. 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
== END 2023-08-11 09:38 | disposition home or self-care (01) ==
LOC: HO.ACS 08:57
PROVIDERS: PCP Internal Medicine; Visit Provider Internal Medicine
DX: Z79.01 Long term (current) use of anticoagulants (principal)

== ENCOUNTER → 2023-08-11 08:57 | Outpatient (BNVA) | payer MEDICARE, SELFPAY | PROVIDERS: PCP Internal Medicine; Visit Provider Internal Medicine | DX: I48.19 Other persistent atrial fibrillation (principal); I26.99 Other pulmonary embolism without acute cor pulmonale; Z79.01 Long term (current) use of anticoagulants; Z51.81 Encounter for therapeutic drug level monitoring | CPT/HCPCS: 85610; 99211 ==

== ENCOUNTER 2023-08-15 12:05 | Outpatient (REF) | payer MEDICARE, SELFPAY ==
[2023-08-15 14:05] LABS: Digoxin 0.5 ng/mL (0.8-2.0)
== END 2023-08-15 12:06 | disposition home or self-care (01) ==
LOC: HO.LAB 12:05
PROVIDERS: PCP Internal Medicine; Visit Provider Internal Medicine Cardiovascular Disease
DX: I48.20 Chronic atrial fibrillation, unspecified (principal); I10 Essential (primary) hypertension; Z79.899 Other long term (current) drug therapy
CPT/HCPCS: 36415; 80162; 99212

== ENCOUNTER 2023-08-15 12:05 | Outpatient (AMB) | payer MEDICARE, SELFPAY ==
[2023-08-15 12:34] VITALS: BP 124/80; PULSE 86; BMI 30.6
--- NOTE | 2023-08-15 12:34 | A.OFFVIS_ITS ---
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 Allergies amlodipine Allergy (Intermediate, Verified 08/11/23 09:00) Difficulty Breathing latex [LATEX] Allergy (Intermediate, Verified 08/11/23 09:00) RASH seasonal Allergy (Intermediate, Uncoded 07/26/23 15:01) Sneezing altace Adverse Reaction (Mild, Uncoded 07/26/23 15:01) Cough Medication List - Last Reconciled 08/15/23 by Rob Ryan MD atenolol 50 mg PO BID cholecalciferol (vitamin D3) 25 mcg PO DAILY digoxin 0.25 mg PO DAILY fluticasone furoate 100 mcg/actuation (Arnuity Ellipta) 1 inh inhalation DAILY 30 days losartan 50 mg PO DAILY warfarin 5 mg See Protocol PO DAILY HPI Comments Details: Sudha comes for follow-up. Overall she has been okay. She remains in atrial fibrillation, last EKG done in June showing atrial fibrillation. However with atrial fibrillation she has no new symptoms. She takes Lasix about once a week when her leg is swollen especially the left leg. She denies any clear orthopnea, PND. Uses oxygen intermittently. She recently a pulmonary infection for which she got treated. She at this point time is wondering as to what the other treatment options for atrial fibrillation or if she is doing well. She is currently on warfarin therapy for anticoagulation for which she has to have her INRs checked almost every 10 days. She said she had diverticular bleeding on Eliquis and does not feel comfortable to go back on direct oral anticoagulant [facility] Medical History Pulmonary nodules Pulmonary embolism History of kidney disease Pulmonary nodule Renal cell cancer Renal cell carcinoma of right kidney Chronic respiratory failure with hypoxia Pneumonitis ILD (interstitial lung disease) Surgical History History of right knee surgery (~10/2016) History of History of cholecystectomy Social History Household Members: None Housing: Condominium Do you presently have visiting nurse or other home services: No Alcohol intake: former Patient Tobacco Use Status: Former Tobacco user Tobacco use type: Cigarette Years Smoked: 5 Advance Directives Date on File: 12/01/22 service: No Review of Systems Const Denies chills, Denies fatigue, Denies fever(s), Denies frequent falls, Denies weakness, Denies weight gain and Denies weight loss ENT Denies dizziness Card Denies chest pain, Denies leg edema, Denies lightheadedness, Denies palpitations, Denies dyspnea, Denies dyspnea on exertion, Denies orthopnea and Denies other (loss of consciousness) Resp Denies cough, Denies dyspnea and Denies dyspnea on exertion GI Denies hematochezia and Denies change in stool character Musc Denies abnormal gait, Denies muscle weakness, Denies numbness, Denies radiating pain into limb and Denies tingling Neuro Denies abnormal gait, Denies dizziness, Denies frequent falls, Denies numbness, Denies tingling and Denies weakness Endo Denies fatigue and Denies palpitations Physical Exam Vital Signs: Last Vital Signs Pulse 86 08/15/23 12:34 BP 124/80 08/15/23 12:34 BMI result Body Mass Index 30.6 Const General: cooperative, healthy appearing, comfortable and no acute distress Orientation/consciousness: patient oriented x3 Neck Neck: Yes normal visual inspection and Yes no JVD Chest Chest palpation & inspection: normal inspection of the chest Resp Effort & Inspection: normal respiratory effort Auscultation: crackles (each base), no rhonchi and no wheezes Cardio Jugular venous distension: no JVD Rate: regular rate Heart sounds: S1 normal heart sound present, S2 normal heart sound present, no murmurs and no rubs Neuro General: patient oriented x3 Extrem General: Yes normal to inspection and No no pedal edema Psych Appearance: grossly normal Mental Status: mental status grossly normal Speech and movement: Normal speech and movement present Assessment & Plan Assessment & Plan (1) Atrial fibrillation: Code(s): I48.91 - Unspecified atrial fibrillation Category: Medical Qualifiers: Atrial fibrillation type: persistent (not longstanding) Qualified Code(s): I48.19 - Other persistent atrial fibrillation Plan: Chronic persistent atrial fibrillation, failed rhythm control approach on Multaq therapy, developed heart failure after cardioversion on Multaq. She is off Multaq and developed atrial fibrillation. With persistent atrial fibrillation rate control she has no worsening symptoms at this point time. She does not have any overt signs of heart failure progressive heart failure symptoms. We discussed about management of chronic persistent atrial fibrillation given relatively asymptomatic nature and high risk of development of heart failure with persistent atrial fibrillation in the long run. Signs and symptoms of heart failure were discussed. She understands. Advised to call me with any new symptoms. We potentially discussed use of alternative antiarrhythmic such as Tikosyn or sotalol to maintain rhythm given her underlying interstitial lung disease, would avoid amiodarone therapy. Currently on warfarin therapy being followed by [facility]. Maintain target INR between 2 and 3. Given that she is on digoxin for rate control and doing well will continue the same but require digoxin assay every 6 months (2) Hypertension: Code(s): I10 - Essential (primary) hypertension Category: Medical Plan: Hypertension which is currently well optimized advised to monitor blood pressure at home maintain a log. Goal blood pressure less than 130/84. Low-salt diet was discussed. Continue current therapy. Advised to maintain activity level as tolerated. Treat underlying pulmonary parenchymal disease as per Pulmonary team. Will follow up in the clinic in 1 year's time, sooner p.r.n.. Thank you for allowing me to partake in her care Orders: Orders Digoxin Today I48.20 - Chronic atrial fibrillation, unspecified Digoxin 6 Months I48.20 - Chronic atrial fibrillation, unspecified Medications: Refilled digoxin 0.25 mg PO DAILY 30 tabs 8RF losartan 50 mg PO DAILY 30 tabs 5RF Coding Level of Care Code Est Pt Level 4 (52503) Diagnoses Persistent atrial fibrillation I48.19 Atrial fibrillation type: persistent (not longstanding) Hypertension I10
== END 2023-08-15 13:04 | disposition home or self-care (01) ==
PROVIDERS: PCP Internal Medicine; Visit Provider Internal Medicine Cardiovascular Disease
DX: I48.19 Other persistent atrial fibrillation (principal); I10 Essential (primary) hypertension
CPT/HCPCS: 99214

== ENCOUNTER 2023-08-23 09:16 | Outpatient (AMB) | payer MEDICARE, SELFPAY ==
--- NOTE | 2023-08-23 09:47 | MHC.OFFVISCO ---
Intake Intake Visit Reasons: Anticoagulation Allergies amlodipine Allergy (Intermediate, Verified 08/23/23 09:42) Difficulty Breathing latex [LATEX] Allergy (Intermediate, Verified 08/23/23 09:42) RASH seasonal Allergy (Intermediate, Uncoded 08/23/23 09:42) Sneezing altace Adverse Reaction (Mild, Uncoded 08/23/23 09:42) Cough Medication List - Last Reconciled 08/23/23 by Sherrell Ya RN atenolol 50 mg PO BID cholecalciferol (vitamin D3) 25 mcg PO DAILY digoxin 0.25 mg PO DAILY fluticasone furoate 100 mcg/actuation (Arnuity Ellipta) 1 inh inhalation DAILY 30 days losartan 50 mg PO DAILY warfarin 5 mg See Protocol PO DAILY Nursing Note INR 3.1-?? out of therapeutic range of 2-3 Medications and supplements reviewed Patient status: no c,o Medications or supplements: no c.o Diet: appetite is good Denies any signs and symptoms of bleeding or clotting or unusual bruising Bleeding, bruising, clotting discussed Nutritional guidance given: eat greens to lower Dose: 5mg x 3, 7.5mg x 4- dates on paper pt states unsure of weekly dosing after week 2 on dosing peper and did every other day F/U INR Date : 2 weeks? Patient verbalizing understanding of instructions given. 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 Illness/Depression: No Coding Level of Care Code Est Patient Level 1 Diagnoses Current use of anticoagulant therapy Z79.01 Assessment & Plan Assessment & Plan (1) Current use of anticoagulant therapy: Code(s): Z79.01 - residential (current) use of anticoagulants Category: Medical
[2023-08-23 09:48] LABS: ~PT, ~INR - Anti Coag Clinic 3.1 (0.9-1.1)
== END 2023-08-23 10:47 | disposition home or self-care (01) ==
LOC: HO.ACS 09:16
PROVIDERS: PCP Internal Medicine; Visit Provider Internal Medicine
DX: Z79.01 Long term (current) use of anticoagulants (principal)

== ENCOUNTER → 2023-08-23 09:16 | Outpatient (BNVA) | payer MEDICARE, SELFPAY | PROVIDERS: PCP Internal Medicine; Visit Provider Internal Medicine | DX: I48.19 Other persistent atrial fibrillation (principal); I26.99 Other pulmonary embolism without acute cor pulmonale; Z79.01 Long term (current) use of anticoagulants; Z51.81 Encounter for therapeutic drug level monitoring | CPT/HCPCS: 85610; 99211 ==

== ENCOUNTER 2023-09-06 09:08 | Outpatient (REF) | payer MEDICARE, SELFPAY ==
[2023-09-06 09:56] LABS: MANUAL DIFF FLAG NO
[2023-09-06 10:35] LABS: Basophils Absolute Auto 0.1 X10*3/uL (0.0-0.2); Basophils Percent Auto 0.7 % (0-2); Eosinophils Absolute Auto 0.2 X10*3/uL (0.0-0.4); Eosinophils Percent Auto 2.5 % (0-4); Hematocrit 42.5 % (37.0-47.0); Hemoglobin 13.6 g/dl (12.0-16.0); Imm Gran Abs Auto 0.04 X10*3/uL (0.00-0.03); Imm Gran Pct Auto 0.6 % (0.0-0.4); Lymphocytes Absolute Auto 1.8 X10*3/uL (1.2-4.9); Lymphocytes Percent Auto 24.3 % (20-40); Mean Corpuscular Hemoglobin 27.9 pg (27.0-33.0); Mean Corpuscular Volume 87.3 fL (80.0-98.0); Mean Platelet Volume 9.5 fL (9.4-12.3); Monocytes Absolute Auto 0.6 X10*3/uL (0.1-1.2); Monocytes Percent Auto 7.6 % (2-11); Neutrophils Absolute Auto 4.7 x10*3/uL (2.0-8.3); Neutrophils Percent Auto 64.3 % (45-73); Platelet Count 210 X10*3/uL (160-400); Red Blood Count 4.87 X10*6/uL (4.20-5.50); Red Cell Distribution Width 16.8 % (11.0-16.0); White Blood Count 7.2 X10*3/uL (4.8-10.8)
[2023-09-06 11:03] LABS: Anion Gap 13 (12-20); Blood Urea Nitrogen 17 mg/dL (9-16); Calcium 9.7 mg/dL (8.4-10.2); Carbon Dioxide 25 mmol/L (22-29); Chloride 108 mmol/L (96-108); Estimated Glomerular Filt Rate > 60; Glucose Random 90 mg/dL (60-115); Potassium 3.7 mmol/L (3.3-5.1); Sodium 142 mmol/L (135-145)
[2023-09-06 11:13] LABS: Erythrocyte Sedimentation Rate 16 MM/HR (0-20)
[2023-09-06 11:25] LABS: Digoxin 0.8 ng/mL (0.8-2.0)
[2023-09-07 21:14] LABS: Anti DNA DS Antibody <1 IU/mL
[2023-09-07 22:48] LABS: Immunoglobulin E 9 kU/L (<OR=114)
[2023-09-14 14:22] LABS: Asperg fumigatus Precip Abs NEGATIVE (NEGATIVE); Micropoly faeni Abs NEGATIVE (NEGATIVE); Pigeon serum Abs NEGATIVE (NEGATIVE); Saccharo pora viridis Abs NEGATIVE (NEGATIVE); Thermo candidus Abs NEGATIVE (NEGATIVE); Thermoa vulgaris #1 NEGATIVE (NEGATIVE)
[2023-09-15 06:19] LABS: Anti Nuclear Antibody Screen NEGATIVE (NEGATIVE)
== END 2023-09-06 09:09 | disposition home or self-care (01) ==
LOC: HO.LAB 09:08
PROVIDERS: Internal Medicine Cardiovascular Disease; PCP Internal Medicine; Visit Provider Hospitalist
DX: R91.1 Solitary pulmonary nodule (principal); C64.9 Malignant neoplasm of unspecified kidney, except renal pelvis; J18.9 Pneumonia, unspecified organism; J84.9 Interstitial pulmonary disease, unspecified; R91.8 Other nonspecific abnormal finding of lung field; I48.19 Other persistent atrial fibrillation; I50.9 Heart failure, unspecified
CPT/HCPCS: 36415; 80048; 80162; 82785; 85025; 85610; 85652; 86038; 86225; 86331; 86606; 86609; 99211

== ENCOUNTER 2023-09-06 09:11 | Outpatient (AMB) | payer MEDICARE, SELFPAY ==
[2023-09-06 09:26] LABS: Prothrombin Time Whole Bld POC 38.8 sec (11.1-13.5); ~PT, ~INR - Anti Coag Clinic 3.2 (0.9-1.1)
--- NOTE | 2023-09-06 09:35 | MHC.OFFVISCO ---
Intake Intake Visit Reasons: Anticoagulation Allergies amlodipine Allergy (Intermediate, Verified 09/06/23 09:17) Difficulty Breathing latex [LATEX] Allergy (Intermediate, Verified 09/06/23 09:17) RASH seasonal Allergy (Intermediate, Uncoded 09/06/23 09:17) Sneezing altace Adverse Reaction (Mild, Uncoded 09/06/23 09:17) Cough Medication List - Last Reconciled 09/06/23 by Farheen Pruett RN atenolol 50 mg PO BID cholecalciferol (vitamin D3) 25 mcg PO DAILY digoxin 0.25 mg PO DAILY fluticasone furoate 100 mcg/actuation (Arnuity Ellipta) 1 inh inhalation DAILY 30 days losartan 50 mg PO DAILY warfarin 5 mg See Protocol PO DAILY Nursing Note INR: 3.2ALMOST therapeutic range- PT NEEDS REMINDERS FOR DOSING AND DATE ON HER PAPER Medications and supplements reviewed No changes in health, diet, medications, or supplements, Denies any signs and symptoms of bleeding or bruising or clotting. Bleeding, bruising, clotting discussed Nutritional guidance given- COOKED GREENS TODAY AND WEEKLY, REMEMBER COOKED GREENS LOWER MORE THAN RAW Dose: KEEP SAME FOR NOW 5MG MWF/ 7.5MG X 4 DAYS F/U INR: 2 WEEKS Patient verbalizes understanding of instructions given Anti-Coag Initial Assessment Social Hx Patient Tobacco Use Status: Former Tobacco user Tobacco use type: Cigarette alcohol intake: former Alcohol intake frequency: does not drink Cardiovascular Hx: HTN, Arrhythmias and Other (atrial fib) Lung Disease HX: DVT/PE (blood clots in lungs 12/13) and Other (interstitial lung disease) Musculoskeletal Hx: Arthritis (bilateral knee, right total replacement) GI Hx: Bleeding (GI, rectal), Diverticulosis and Hemorrhoids Hx: Other (renal cell CA 12/13) Cancer HX: Yes Psych. Illness/Depression: No Coding Level of Care Code Est Patient Level 1 Diagnoses Current use of anticoagulant therapy Z79.01 Assessment & Plan Assessment & Plan (1) Current use of anticoagulant therapy: Code(s): Z79.01 - long-term (current) use of anticoagulants Category: Medical
== END 2023-09-06 09:39 | disposition home or self-care (01) ==
LOC: HO.ACS 09:11
PROVIDERS: PCP Internal Medicine; Visit Provider Internal Medicine
DX: Z79.01 Long term (current) use of anticoagulants (principal)

== ENCOUNTER 2023-09-15 09:07 | Outpatient (REF) | payer MEDICARE, SELFPAY ==
--- NOTE | ~2023-09-15 | CT_ITS ---
EXAMINATION: CT CHEST WITH CONTRAST CLINICAL INFORMATION: Follow up pulmonary nodule COMPARISON: CT scan of chest on 07/20/2023 TECHNIQUE: Multidetector volumetric CT imaging of the chest was obtained after the administration of 65 mL of Omnipaque 350 intravenous contrast without immediate adverse reactions. Axial MIP volume rendering provided. Sagittal and coronal reformatted images were obtained. This CT examination was performed using dose optimization techniques as appropriate, variously including the following: *Automated exposure control *Adjustment of mA and/or kV according to patient size (this includes techniques or standardized protocols for targeted exams where dose is matched to indication/reason for exam; i.e. extremities or head) *Use of iterative reconstruction technique DLP: 189 mGy-cm FINDINGS: LUNGS: Persistent mosaic attenuation in bilateral lungs with scattered areas of air trapping, retinacula densities compatible with interlobular septal thickening and fibrosis are seen. Mixed reticular and groundglass opacities are seen in the left upper lobe and lingular lobe. There is interval complete resolution of multiple patchy irregular alveolar densities with air bronchograms and subsolid nodules. PLEURA: No pleural effusion or pneumothorax is seen. PERICARDIUM: No pericardial effusion is seen. MEDIASTINUM AND EMIGDIO: Persistent precarinal lymph node containing central fatty hilum is seen measuring 1.0 cm in short axis (previously 1.6 cm), series 3 image #17. Smaller shotty multiple left periaortic superior mediastinal lymph nodes are present. TRACHEOBRONCHIAL TREE: Trachea and bilateral mainstem bronchi are patent. THORACIC AORTA: The thoracic aorta is normal in size and smoothly patent. CORONARY ARTERY CALCIFICATIONS: Present PULMONARY ARTERIES: The main pulmonary arteries show normal enhancement. CHEST WALL AND LOWER NECK: The subcutaneous and muscular chest wall are intact with no focal lesion. Bilateral multiple axillary lymph nodes with extensive central fatty hilum are seen, measuring up to 1.1 cm in short axis in the largest right axillary lymph node, series 3 image #21. There is persistent enlargement of the thyroid gland with heterogeneous enhancement and multiple tiny hypoenhancing nodules. BONES: There are exaggerated thoracic kyphosis and multilevel advanced degenerative thoracic disc disease. No fracture or dislocation. No focal bone lesion diagnostic of metastatic disease could be seen in the thorax. VISUALIZED UPPER ABDOMEN: Bilateral adrenal glands are not enlarged. A prominent exophytic hypoenhancing mass lesion with lateral peripheral lipomatous component is partially visualized, protruding from lateral mid right renal cortex, measuring 3.6 cm in AP diameter, 3.8 cm in width in the visualized portion (previously 3.3 cm), series 3 image #46. Liver parenchyma shows relatively low density with mean attenuation of 59 Hounsfield units in spite of intravenous contrast enhancement. CT/CT chest w IV con IMPRESSION: 1. Interval complete resolution of multiple patchy irregular alveolar densities with air bronchograms and subsolid nodules. 2. Persistent mosaic attenuation in bilateral lungs with scattered areas of air trapping, interlobular septal thickening and fibrosis compatible with small airway disease and interstitial lung disease. 3. Persistent enlargement of the thyroid gland with heterogeneous enhancement and multiple tiny hypoenhancing nodules. Further evaluation with ultrasound examination of the thyroid gland is recommended. 4. Interval decrease in size of precarinal lymph node an left periaortic superior mediastinal lymph nodes. 5. Unchanged bilateral benign axillary lymph nodes with extensive central fatty hilum. 6. Persistent Partially visualized exophytic hypoenhancing mass lesion with lateral peripheral lipomatous component protruding from lateral mid right renal cortex, measuring 3.6 cm in AP diameter, 3.8 cm in width in the visualized portion (previously 3.3 cm). 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 7. Unchanged Hepatic steatosis. Fleischner guidelines were followed. Electronically signed by: Laurita Fowler MD 10/13/2023 09:15 AM EDT
[2023-09-15] MEDS: iohexoL 350 MG/ML 100 ML INFUS..BTL 65 ML IV (09:52)
== END 2023-09-15 09:08 | disposition home or self-care (01) ==
LOC: HO.CT 09:07
PROVIDERS: PCP Internal Medicine; Visit Provider Hospitalist
DX: R91.1 Solitary pulmonary nodule (principal)
CPT/HCPCS: 71260; Q9967

== ENCOUNTER 2023-09-19 09:08 | Outpatient (AMB) | payer MEDICARE, SELFPAY ==
[2023-09-19 09:29] LABS: Prothrombin Time Whole Bld POC 35.3 sec (11.1-13.5); ~PT, ~INR - Anti Coag Clinic 2.9 (0.9-1.1)
--- NOTE | 2023-09-19 09:45 | MHC.OFFVISCO ---
Intake Intake Visit Reasons: Anticoagulation Allergies amlodipine Allergy (Intermediate, Verified 09/19/23 09:25) Difficulty Breathing latex [LATEX] Allergy (Intermediate, Verified 09/19/23 09:25) RASH seasonal Allergy (Intermediate, Uncoded 09/06/23 09:17) Sneezing altace Adverse Reaction (Mild, Uncoded 09/06/23 09:17) Cough Medication List - Last Reconciled 09/19/23 by Corinna Raphael RN atenolol 50 mg PO BID cholecalciferol (vitamin D3) 25 mcg PO DAILY digoxin 0.25 mg PO DAILY fluticasone furoate 100 mcg/actuation (Arnuity Ellipta) 1 inh inhalation DAILY 30 days losartan 50 mg PO DAILY warfarin 5 mg See Protocol PO DAILY Nursing Note NO CP,SOB,DIET/MED CHANGES,FALLS OR SX OF BLEEDING. CONTINUE PRESENT DOSSE AND FOLLOW-UP IN 3 WEEKS. GOOD UNDERSTANDING OF DOSING INSTR. 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 Illness/Depression: No Coding Level of Care Code Est Patient Level 1 Diagnoses Current use of anticoagulant therapy Z79.01 Assessment & Plan Assessment & Plan (1) Current use of anticoagulant therapy: Code(s): Z79.01 - emt intermediate (current) use of anticoagulants Category: Medical
== END 2023-09-19 09:46 | disposition home or self-care (01) ==
LOC: HO.ACS 09:08
PROVIDERS: PCP Internal Medicine; Visit Provider Internal Medicine
DX: Z79.01 Long term (current) use of anticoagulants (principal)

== ENCOUNTER → 2023-09-19 09:08 | Outpatient (BNVA) | payer MEDICARE, SELFPAY | PROVIDERS: PCP Internal Medicine; Visit Provider Internal Medicine | DX: J84.9 Interstitial pulmonary disease, unspecified (principal); J18.9 Pneumonia, unspecified organism; J96.11 Chronic respiratory failure with hypoxia; J18.1 Lobar pneumonia, unspecified organism; I26.94 Multiple subsegmental thrombotic pulmonary emboli without acute cor pulmonale; R91.8 Other nonspecific abnormal finding of lung field; C64.9 Malignant neoplasm of unspecified kidney, except renal pelvis; I48.19 Other persistent atrial fibrillation; I26.99 Other pulmonary embolism without acute cor pulmonale; Z79.01 Long term (current) use of anticoagulants; Z51.81 Encounter for therapeutic drug level monitoring | CPT/HCPCS: 85610; 99211; 99212 ==

== ENCOUNTER 2023-09-19 14:25 | Outpatient (AMB) | payer MEDICARE, SELFPAY ==
--- NOTE | 2023-09-19 14:42 | A.OFFVIS_ITS ---
Vital Signs 09/19/23 14:45 Height 5 ft Weight 157 lb 6.561 oz BMI 30.7 Pulse 90 Pulse Source Pulse Oximeter Pulse Oximetry (%) 92 Oxygen Delivery Method Room Air Intake Visit Reasons: ILD Patient Transportation Driver Required: No Allergies amlodipine Allergy (Intermediate, Verified 09/19/23 14:46) Difficulty Breathing latex [LATEX] Allergy (Intermediate, Verified 09/19/23 14:46) RASH seasonal Allergy (Intermediate, Uncoded 09/19/23 14:46) Sneezing altace Adverse Reaction (Mild, Uncoded 09/19/23 14:46) Cough HPI Comments Details: The patient is a 82 year woman who was referred to Pulmonary to evaluate abnormal CT scan of the chest. The patient states that she has been feeling otherwise well. Denies any significant shortness of breath or cough or any chest discomfort. However, she does state that she lives in a very [facility] and she does not do a lot of walking. She went to see her primary care doctor who checked her pulse oximeter and was noted to be low. Therefore she had additional imaging studies including a CT scan of the chest that was found to be abnormal. I did personally viewed the CT scan demonstrating areas of mosaic pattern is of ground-glass opacities and also some reticular changes primarily in the lingula. The patient denies any significant exposure to any fumes or toxins. Denies any hobbies with any exposures to organic or inorganic dusts. She denies any exposure to any farm animals or farm or hay. She does not have any pets. She denies any mold in the household. The interesting part of the story is that the patient has a identical twin who lives in [place]. At the same time that she was undergoing a CT scan of the chest for further evaluation of underlying interstitial lung disease the patient is identical sister was also going to the same process. She is also going to see a specialist. The details of that evaluation are not available at this time. She denies any significant rashes or joint pains or muscle discomfort or muscle weakness. During the office visit we did go for 6 minute walk test. The patient did desaturate down to 88%. She had a dyspnea score of 3/10 and did go up to 4-10 when she was a little more hypoxic. We did rest for a minute and her oxygen improved to the low 90s. The patient did qualify for oxygen but she does not 1 at this time. 12/03/2021 the patient is here for a pulmonary follow-up visit. She is here with her sister. She did take the prednisone. The prednisone made her feel better although did not really help her breathing symptoms. She really denies any significant dyspnea on exertion. She walks regularly and also uses a recumbent bike and denies any significant shortness of breath. We did review her blood work which was relatively negative except for a positive RD with the very low titer of 01:40. There is no real history of connective tissue conditions in the family. There is a history pulmonary fibrosis. Both her mother and also her sister that is being evaluated at this time. Her last CT scan did demonstrate reticular changes in addition to ground-glass opacities. 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 During the visit the patient did have evidence of bilateral crackles and her 6 minutes walk test she desaturated down to about 86%. Her dyspnea score was 5/10 during. based on that explained to the patient that she needs to start oxygen supplementation with activity. She is a bit reluctant but she is willing to try for now. Will plan to repeat the CT scan and then follow up with a painful to see you if there is no significant progression of the pulmonary fibrosis. With talk about considering all to have a biopsy although patient is at this point reluctant to do so. Would not be unreasonable to keep the patient on small dose of prednisone for that reason. Indeed she has worsening fibrotic changes using wanted fibrotic agent would also be an option. 01/12/2022 the patient is here with her daughter for pulmonary follow-up visit. She has been on the 10 mg of prednisone. She is concerned because of the adverse effects of the medication and affecting her sleep. We did keep her on the prednisone in view of the elevated RD and also the elevation in the eosinophils which may manifest with an interstitial process. Specially since she did have some areas of ground-glass opacities suggesting pneumonitis. The patient however denied a see any significant improvement or difference. She did have a repeat CT scan of the chest and we personally reviewed that together. We also compared to her last CT scan that she had several months back. Appears to be some interval increase in the degree of reticulations and pulmonary fibrosis primarily on the left lung more than the right. She still has areas of ground-glass opacities in addition to mosaic pattern. No clear etiology for the interstitial lung disease based on the blood work. The patient is not interested in pursuing any invasive diagnostic interventions such as biopsies. Clinically the patient is doing well and she denies any respiratory symptoms at all. All this came about because she was noted to have an abnormal CT scan when she was referred to Pulmonary. She did have 2 6 minutes walk test both that were consistent with hypoxia qualify for oxygen. The patient also had an overnight oximetry demonstrating significant hypoxia while sleeping at least for close to 3 hours for she spent below 88%. Therefore the patient needs to continue using the oxygen with activity and also at nighttime while sleeping. She is adamant that she has wants to get an [employer] portable oxygen concentrator. Will go ahead and fill out some paperwork in order for her to receive that. the patient is wondering if she is going to have to stay on the oxygen. I did recommend that she continue to use it for now and we will retest her once she returns in . Patient is going to be weaning off the prednisone at this time. And the patient is not interested in any antifibrotic therapy at this time. Based on her clinical presentation during the next visit we can discuss further anti fibrotic therapy if she would like. Patient does have a lot of questions about her condition and the fact that she is fairly asymptomatic. The fact that her 20 sister also found to have some interstitial lung changes which she does not require oxygen and she is questioning the whole process. I can only tolerate that we have tested her multiple times and all times have demonstrated evidence of hypoxia even on the day of presentation the patient is stands that using the oxygen will help her with her organ function including heart brain and other end-organ functions. Her her daughter was wondering about a diagnosis next Plain to her for now based on the fact that there is some progression the possibility of idiopathic pulmonary fibrosis needs to be in differential. Explained to the patient and the daughter that with the idiopathic pulmonary fibrosis the fibrosis is progressive. Therefore, will continue to monitor for any progression of disease. 05/06/2022 the patient is here for a pulmonary preoperative evaluation. Overall the patient has been doing about the same from a respiratory status. She continues use the oxygen with activity and sleep. She denies any worsening shortness breath or any new respiratory complaints. She denies any evidence of any active connective tissue disease. She has been off all corticosteroid therapy. She was found to have a renal mass. Concerning for malignancy. Now after being evaluated by Urology see felt that she requires full nephrectomy. Because of her underlying respiratory disease stable also recommending ablation. We did review her spirometry also her PFTs from last year in addition to her 6 minutes walk test. Based on this the patient does have increased risk for perioperative pulmonary complications. However, she is medically optimize any condition is not worsening. Therefore, I do believe that she will tolerate general anesthesia and will tolerate her surgery. She will have increased risks including further hypoxia in addition to risk for pneumonia and atelectasis. Currently she is medically optimized from a pulmonary standpoint. She does not need any bronchodilator therapy. She is using her oxygen effectively. After she recovers from her surgery will reassess her underlying interstitial lung disease with a repeat CT scan and PFTs. At that point we can decide if there is any evidence of any progression to consider small dose steroids versus antifibrotic therapies. 09/21/2022 the patient is here for pulmonary follow-up visit. She recovering well from her surgery. She did have increased shortness of breath after surgery. She did follow-up in the office and was reassuring that everything was okay. The patient has been using the oxygen a little bit more often specially after surgery. she was having issues with high blood pressure she was started on a new blood pressure medication. After the medication she noticed that oxygen actually dropped to 84% which became very concerning for her. Therefore she stopped that medicine which was amlodipine. Seems that her blood pressure is better at this time. The patient also underwent a CT scan of the chest which I personally reviewed with her and her daughter. It appears some slight increase in the reticular changes primarily in the left side. There is also evidence of ground-glass opacities suggestion a component of inflammation or likely subtle scarring. Patient does have a history of slightly elevated connective tissue disease laboratory suggesting the possibility of connective tissue disease related pulmonary fibrosis. She had been on prednisone before and she did tolerated fairly well. She is willing to try smaller dose to see if she can tolerated and try to minimize progression of the scarring. Another option is to consider antifibrotic agent specially with slight worsening of disease. She is going to consider this as well. Will go ahead and start her on therapy with prednisone 10 mg daily and she is going to taper down to the lowest most effective dose which I hope is going to be 10 mg every other day. She is going to monitor closely her oxygen supplementation. Also to note that she does have a twin with very similar condition and she is also now on a small dose of prednisone. She is reassured I am also reassured that the amount of progression appears to be fairly minimal in a year's time. We did talk about pulmonary rehabilitation. The patient would really benefit from rehabilitation at this time specially now that she is recovering from her renal cell cancer surgery. 12/23/2022 the patient is here for a pulmonary follow-up visit. Apparently she was hospitalized earlier this month after developing significant tachycardia while at pulmonary rehab. She was referred down to the [facility] where she was diagnosed with atrial fibrillation and also had a CTA demonstrating pulmonary emboli. Therefore the patient was admitted to the hospital. She was evaluated by Cardiology. She has been on Eliquis since that hospitalizations. Her oxygen requirements are about the same. I did review her CT scan of the chest. She does have significant mosaic pattern a little bit more than before. In addition to that the pulmonary emboli noted right more than left. The patient also has a nodular density measuring around a cm in the right upper lobe area. The patient is also scheduled to undergo and MRI coming up for history of renal cancer. She continues on the prednisone every other day. At this point will continue with that does specially since she is concerned about the potential adverse effects of prednisone. she continues in atrial fibrillation but she is rate controlled. At this point the patient will continue with the Eliquis and her respiratory therapy. The patient will undergo a repeat CTA in 3 months' time to assess the resolution of the clots in addition to that to follow-up with the 1 cm subsolid nodular density in the right upper lobe. 04/22/2023 the patient is here for a pulmonary follow-up visit. The patient overall has been feeling well. She did stop the prednisone as she was concerned about the adverse effects. Still having dyspnea on exertion [id number] severity. She does use her oxygen with sleep and also with activity. She has a POC. She was participating in the pulmonary rehabilitation but then started developing issues with atrial fibrillation and also shoulder issues. She is currently working with orthopedic surgery and Cardiology. At this point though she is doing better and she is able to go back to pulmonary rehabilitation at this time. She is still getting physical therapy at home for her shoulder so therefore she would have to wait until that is completed. The patient did have a CT scan of the chest that I personally reviewed with her. The patient does have evidence of mosaic pattern suggesting air trapping. Appears to have gotten slightly more pronounced. Maybe the fact that she has no longer on prednisone. The interstitial lung disease looks about the same. Therefore we can hold off on the idea of Ofev. The patient is agreeable to starting a inhaled corticosteroid. The patient is going to be having an MRI of the abdomen to re-evaluate her history of renal cancer. We were monitoring 1 pulmonary nodule that was in the right hemithorax. However, it does not appear to be present and her current CT scan which is reassuring. Otherwise the patient is doing well. Will plan to follow-up in 6 months. 07/26/2023 the patient is here for sick visit. Apparently she had been having worsening respiratory symptoms cough chest congestion. She had gotten a chest x-ray that was abnormal. She was placed on antibiotics which is cephalosporin. She had a hard time tolerating the medicine. She took it. Affected her Coumadin INR. The patient did have a CT scan of the chest done. I personally reviewed the images. Patient does have masslike consolidation bilaterally. Some areas of ground-glass opacities and airspace disease. Also nodular densities. We did compared to the CT scan she had back in 03/12/2023 where she had the ground-glass opacities and interstitial lung disease but no evidence of any nodular densities. Also the patient did have an MRI the kidney and everything is fine her report. I did review the masslike consolidations with the patient. Appears to be more consistent with an infectious process. Likely walking pneumonia could be a viral syndrome that may have been superimposed on bacterial infection such as staph aureus. The antibiotics did help. Will go ahead and give her a 2nd course of antibiotics with doxycycline. I also send a message to the Coumadin clinic to make sure they monitor her INR. The patient already scheduled to have a repeat CT scan September 14 which I believe is reasonable. We did contemplate a PET scan but at this point based on her respiratory illness the PET scan would also sharp activity in infectious process therefore making it less accurate. Therefore the CT with contrast would be a very good study for follow-up. The patient understands that if she has any residual nodular densities of any concern will order a PET scan at that point. If she develops any worsening symptoms she should also call for an earlier assessment. The patient also will complete the antibiotics and after that she can go back to pulmonary rehabilitation as it is important for her to continue to exercise regularly. 09/19/2023 the patient is here for a pulmonary follow-up visit. She is feeling a lot better. Oxygenation is also better. She does have her oxygen although she has been able to be off it for periods of time which is reassuring. She did undergo her CT scan of the chest that has not been officially read. However, we did review the CT scan together and then also compared to her previous CT scans. It appears that the masslike consolidations in airspace disease have s ignificantly subsided. She did complete a course of antibiotics which is reassuring. Indeed no evidence of any recurrence. No evidence of any pulmonary nodules that are concerning. As far as her interstitial lung disease looks about the same although some areas where she had most of the airspace disease it seemed to have scarred up a little bit as far as the organization in the healing process. Therefore, I do not believe that the changes are due to is progression of her interstitial lung disease but more the recent acute illness. No need for PET scan at this time. The patient is going to continue her respiratory therapy as prescribed she is going to continue her oxygen with activity and also sleep. She will follow-up in 6-8 months. If the patient develops any worsening symptoms she will call for an earlier assessment. [facility] Medical History Pulmonary nodules Pulmonary embolism History of kidney disease Pulmonary nodule Renal cell cancer Renal cell carcinoma of right kidney Chronic respiratory failure with hypoxia Pneumonitis ILD (interstitial lung disease) Surgical History History of right knee surgery (~10/2016) History of History of cholecystectomy Social History Household Members: None Housing: Condominium Do you presently have visiting nurse or other home services: No Alcohol intake: former Patient Tobacco Use Status: Former Tobacco user Tobacco use type: Cigarette Years Smoked: 5 Advance Directives Date on File: 12/01/22 service: No Review of Systems Const Denies chills, Denies fatigue, Denies fever(s), Denies frequent falls, Denies weakness, Denies weight gain and Denies weight loss ENT Denies dizziness Card Denies chest pain, Denies leg edema, Denies lightheadedness, Denies palpitations, Denies dyspnea, Denies dyspnea on exertion, Denies orthopnea and Denies other (loss of consciousness) Resp Denies cough, Denies dyspnea and Denies dyspnea on exertion GI Denies hematochezia and Denies change in stool character Musc Denies abnormal gait, Denies muscle weakness, Denies numbness, Denies radiating pain into limb and Denies tingling Neuro Denies abnormal gait, Denies dizziness, Denies frequent falls, Denies numbness, Denies tingling and Denies weakness Endo Denies fatigue and Denies palpitations Physical Exam Vital Signs: Last Vital Signs Pulse 90 09/19/23 14:45 Pulse Ox 92 09/19/23 14:45 Oxygen Delivery Method Room Air 09/19/23 14:45 BMI result Body Mass Index 30.7 Const General: comfortable HEENT Head: Yes normal to inspection Neck Neck: Yes supple Chest Chest palpation & inspection: normal inspection of the chest Resp Effort & Inspection: normal respiratory effort Auscultation: crackles, no rhonchi and diminished lung sounds Cardio Rate: regular rate and tachycardic Rhythm: abnormal rhythm Heart sounds: S1 normal heart sound present and S2 normal heart sound present GI Auscultation: normal bowel sounds General: Yes no CVA tenderness Back/Spine/Pelvis Back: no CVA tenderness Skin General skin exam: no rashes or lesions noted Extrem General: Yes no clubbing, cyanosis or edema Assessment & Plan Assessment & Plan (1) Pneumonitis: Code(s): J18.9 - Pneumonia, unspecified organism Category: Medical (2) ILD (interstitial lung disease): Code(s): J84.9 - Interstitial pulmonary disease, unspecified Category: Medical (3) Chronic respiratory failure with hypoxia: Code(s): J96.11 - Chronic respiratory failure with hypoxia Category: Medical (4) Pulmonary embolism: Code(s): I26.99 - Other pulmonary embolism without acute cor pulmonale Category: Medical Qualifiers: Pulmonary embolism type: multiple subsegmental (without acute cor pulmonale) Qualified Code(s): I26.94 - Multiple subsegmental pulmonary emboli without acute cor pulmonale (5) Atrial fibrillation: Code(s): I48.91 - Unspecified atrial fibrillation Category: Medical Qualifiers: Atrial fibrillation type: persistent (not longstanding) Qualified Code(s): I48.19 - Other persistent atrial fibrillation (6) Renal cell cancer: Comment: RUL pulmonary nodule resolved Code(s): C64.9 - Malignant neoplasm of unspecified kidney, except renal pelvis Category: Medical Qualifiers: Laterality: unspecified laterality Qualified Code(s): C64.9 - Malignant neoplasm of unspecified kidney, except renal pelvis (7) Pulmonary nodules: Code(s): R91.8 - Other nonspecific abnormal finding of lung field Category: Medical (8) Lung consolidation: Comment: resolved Code(s): J18.1 - Lobar pneumonia, unspecified organism Category: Medical Plan Continue oxygen 2L pulse/cont with activity and 2L with sleep. pulmonary rehab continue Eliquis, likely life long F/U 6-8 months Coding Level of Care Code Est Pt Level 4 (13727) Complex EM visit Add On G2211 Diagnoses Pneumonitis J18.9 ILD (interstitial lung disease) J84.9 Chronic respiratory failure with hypoxia J96.11 Multiple subsegmental pulmonary emboli without acute cor pulmonale I26.94 Pulmonary embolism type: multiple subsegmental (without acute cor pulmonale) Persistent atrial fibrillation I48.19 Atrial fibrillation type: persistent (not longstanding) Renal cell carcinoma, unspecified laterality C64.9 Laterality: unspecified laterality Pulmonary nodules R91.8 Lung consolidation J18.1 Time Spent (min) 18
[2023-09-19 14:45] VITALS: PULSE 90; O2SAT 92; BMI 30.7
== END 2023-09-19 15:14 | disposition home or self-care (01) ==
PROVIDERS: PCP Internal Medicine; Visit Provider Hospitalist
DX: J18.9 Pneumonia, unspecified organism (principal); J84.9 Interstitial pulmonary disease, unspecified; J96.11 Chronic respiratory failure with hypoxia; I26.94 Multiple subsegmental thrombotic pulmonary emboli without acute cor pulmonale; I48.19 Other persistent atrial fibrillation; C64.9 Malignant neoplasm of unspecified kidney, except renal pelvis; R91.8 Other nonspecific abnormal finding of lung field; J18.1 Lobar pneumonia, unspecified organism
CPT/HCPCS: 99214; G2211

== ENCOUNTER 2023-10-11 09:13 | Outpatient (AMB) | payer MEDICARE, SELFPAY ==
[2023-10-11 09:42] LABS: Prothrombin Time Whole Bld POC 35.9 sec (11.1-13.5)
--- NOTE | 2023-10-11 09:54 | MHC.OFFVISCO ---
Intake Intake Visit Reasons: Anticoagulation Allergies amlodipine Allergy (Intermediate, Verified 10/11/23 09:35) Difficulty Breathing latex [LATEX] Allergy (Intermediate, Verified 10/11/23 09:35) RASH seasonal Allergy (Intermediate, Uncoded 10/11/23 09:35) Sneezing altace Adverse Reaction (Mild, Uncoded 10/11/23 09:35) Cough Medication List - Last Reconciled 10/11/23 by Tricia Kilgore RN atenolol 50 mg PO BID cholecalciferol (vitamin D3) 25 mcg PO DAILY digoxin 0.25 mg PO DAILY fluticasone furoate 100 mcg/actuation (Arnuity Ellipta) 1 inh inhalation DAILY 30 days losartan 50 mg PO DAILY Oxygen Home Use As directed warfarin 5 mg See Protocol PO DAILY Nursing Note INR: 3.0 in therapeutic range of 2-3 Medications and supplements reviewed No changes in health, diet, medications, or supplements, Denies any signs and symptoms of bleeding or bruising or clotting. Bleeding, bruising, clotting discussed Nutritional guidance given to have a serving of greens today then to balance greens and reds Dose: resume usual dose of 7.5mg X 4 days and 5mg X 3 days F/U INR: 3 weeks Patient verbalizes understanding of instructions given Anti-Coag Initial Assessment Social Hx Patient Tobacco Use Status: Former Tobacco user Tobacco use type: Cigarette alcohol intake: former Alcohol intake frequency: does not drink Cardiovascular Hx: HTN, Arrhythmias and Other (atrial fib) Lung Disease HX: DVT/PE (blood clots in lungs 12/13) and Other (interstitial lung disease) Musculoskeletal Hx: Arthritis (bilateral knee, right total replacement) GI Hx: Bleeding (GI, rectal), Diverticulosis and Hemorrhoids Hx: Other (renal cell CA 12/13) Cancer HX: Yes Psych. Illness/Depression: No Coding Level of Care Code Est Patient Level 1 Diagnoses Current use of anticoagulant therapy Z79.01 Assessment & Plan Assessment & Plan (1) Current use of anticoagulant therapy: Code(s): Z79.01 - terminal block assembler (current) use of anticoagulants Category: Medical
== END 2023-10-11 09:59 | disposition home or self-care (01) ==
LOC: HO.ACS 09:13
PROVIDERS: PCP Internal Medicine; Visit Provider Internal Medicine
DX: Z79.01 Long term (current) use of anticoagulants (principal)

== ENCOUNTER → 2023-10-11 09:13 | Outpatient (BNVA) | payer MEDICARE, SELFPAY | PROVIDERS: PCP Internal Medicine; Visit Provider Internal Medicine | DX: I48.19 Other persistent atrial fibrillation (principal); I26.99 Other pulmonary embolism without acute cor pulmonale; Z79.01 Long term (current) use of anticoagulants; Z51.81 Encounter for therapeutic drug level monitoring | CPT/HCPCS: 85610; 99211 ==

== ENCOUNTER 2023-11-01 09:18 | Outpatient (AMB) | payer MEDICARE, SELFPAY ==
[2023-11-01 09:46] LABS: Prothrombin Time Whole Bld POC 32.1 sec (11.1-13.5); ~PT, ~INR - Anti Coag Clinic 2.7 (0.9-1.1)
--- NOTE | 2023-11-01 09:46 | MHC.OFFVISCO ---
Intake Intake Visit Reasons: Anticoagulation Allergies amlodipine Allergy (Intermediate, Verified 11/01/23 09:39) Difficulty Breathing latex [LATEX] Allergy (Intermediate, Verified 11/01/23 09:39) RASH seasonal Allergy (Intermediate, Uncoded 11/01/23 09:39) Sneezing altace Adverse Reaction (Mild, Uncoded 11/01/23 09:39) Cough Medication List - Last Reconciled 11/01/23 by Sherrell Ya RN atenolol 50 mg PO BID cholecalciferol (vitamin D3) 25 mcg PO DAILY digoxin 0.25 mg PO DAILY fluticasone furoate 100 mcg/actuation (Arnuity Ellipta) 1 inh inhalation DAILY 30 days losartan 50 mg PO DAILY Oxygen Home Use As directed warfarin 5 mg See Protocol PO DAILY Nursing Note INR: 2.7 in therapeutic range of 2-3 Medications and supplements reviewed- no changes No changes in health, diet, medications, or supplements, Denies any signs and symptoms of bleeding or bruising or clotting. 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 Illness/Depression: No Coding Level of Care Code Est Patient Level 1 Diagnoses Current use of anticoagulant therapy Z79.01 Assessment & Plan Assessment & Plan (1) Current use of anticoagulant therapy: Code(s): Z79.01 - [facility] (current) use of anticoagulants Category: Medical
== END 2023-11-01 09:51 | disposition home or self-care (01) ==
LOC: HO.ACS 09:18
PROVIDERS: PCP Internal Medicine; Visit Provider Internal Medicine
DX: Z79.01 Long term (current) use of anticoagulants (principal)

== ENCOUNTER → 2023-11-01 09:18 | Outpatient (BNVA) | payer MEDICARE, SELFPAY | PROVIDERS: PCP Internal Medicine; Visit Provider Internal Medicine | DX: I48.19 Other persistent atrial fibrillation (principal); I26.99 Other pulmonary embolism without acute cor pulmonale; Z79.01 Long term (current) use of anticoagulants; Z51.81 Encounter for therapeutic drug level monitoring | CPT/HCPCS: 85610; 99211 ==

== ENCOUNTER 2023-11-09 09:17 | Outpatient (AMB) | payer MEDICARE, SELFPAY ==
--- NOTE | 2023-11-09 09:31 | MHC.OFFVISCO ---
Intake Intake Visit Reasons: Anticoagulation Allergies amlodipine Allergy (Intermediate, Verified 11/09/23 09:22) Difficulty Breathing latex [LATEX] Allergy (Intermediate, Verified 11/09/23 09:22) RASH seasonal Allergy (Intermediate, Uncoded 11/09/23 09:22) Sneezing altace Adverse Reaction (Mild, Uncoded 11/09/23 09:22) Cough Medication List - Last Reconciled 11/09/23 by Tricia Kilgore RN atenolol 50 mg PO BID cholecalciferol (vitamin D3) 25 mcg PO DAILY digoxin 0.25 mg PO DAILY fluticasone furoate 100 mcg/actuation (Arnuity Ellipta) 1 inh inhalation DAILY 30 days losartan 50 mg PO DAILY Oxygen Home Use As directed warfarin 5 mg See Protocol PO DAILY Nursing Note INR: 2.8 in therapeutic range of 2-3 Pt to [facility] today to check INT after taking Amoxicillan 2 gms on 11/02/23 and then again on 11/07/23 for dental appt. Incidentally the first dental appt was cancelled but pt had already taken the antibiotic. Medications and supplements reviewed No changes in health, diet, medications, or supplements, Denies any signs and symptoms of bleeding or bruising or clotting. 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 Illness/Depression: No Coding Level of Care Code Est Patient Level 1 Diagnoses Current use of anticoagulant therapy Z79.01 Results AMB INR Fingerstick AMB INR Fingerstick 2.8 Last Edit by Tricia Kilgore RN on 11/09/23 09:29 interface delay Assessment & Plan Assessment & Plan (1) Current use of anticoagulant therapy: Code(s): Z79.01 - residential (current) use of anticoagulants Category: Medical
[2023-11-09 09:36] LABS: Prothrombin Time Whole Bld POC 33.5 sec (11.1-13.5); ~PT, ~INR - Anti Coag Clinic 2.8 (0.9-1.1)
== END 2023-11-09 09:34 | disposition home or self-care (01) ==
LOC: HO.ACS 09:17
PROVIDERS: PCP Internal Medicine; Visit Provider Internal Medicine
DX: Z79.01 Long term (current) use of anticoagulants (principal)

== ENCOUNTER → 2023-11-09 09:17 | Outpatient (BNVA) | payer MEDICARE, SELFPAY | PROVIDERS: PCP Internal Medicine; Visit Provider Internal Medicine | DX: I48.19 Other persistent atrial fibrillation (principal); I26.99 Other pulmonary embolism without acute cor pulmonale; Z79.01 Long term (current) use of anticoagulants; Z51.81 Encounter for therapeutic drug level monitoring | CPT/HCPCS: 85610; 99211 ==

== ENCOUNTER 2023-11-22 09:21 | Outpatient (AMB) | payer MEDICARE, SELFPAY ==
--- NOTE | 2023-11-22 09:28 | MHC.OFFVISCO ---
Intake Intake Visit Reasons: Anticoagulation Allergies amlodipine Allergy (Intermediate, Verified 11/22/23 09:22) Difficulty Breathing latex [LATEX] Allergy (Intermediate, Verified 11/22/23 09:22) RASH seasonal Allergy (Intermediate, Uncoded 11/22/23 09:22) Sneezing altace Adverse Reaction (Mild, Uncoded 11/22/23 09:22) Cough Medication List - Last Reconciled 11/22/23 by Sherrell Ya RN atenolol 50 mg PO BID cholecalciferol (vitamin D3) 25 mcg PO DAILY digoxin 0.25 mg PO DAILY fluticasone furoate 100 mcg/actuation (Arnuity Ellipta) 1 inh inhalation DAILY 30 days losartan 50 mg PO DAILY Oxygen Home Use As directed warfarin 5 mg See Protocol PO DAILY Nursing Note INR: 2.9- in therapeutic range of 2-3 Medications and supplements reviewed No changes in health, diet, medications, or supplements, Denies any signs and symptoms of bleeding or bruising or clotting. Bleeding, bruising, clotting discussed Nutritional guidance given Dose: 5mg x 3, 7.5mg x 4 F/U INR: 2 weeks Patient verbalizes understanding of instructions given pt states lower extrem edema- left greater than right- enc to report to md geronimo pt states O2 sat 88-89 today. has prn oxygen at home and sees pulm. 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 Illness/Depression: No Coding Level of Care Code Est Patient Level 1 Diagnoses Current use of anticoagulant therapy Z79.01 Assessment & Plan Assessment & Plan (1) Current use of anticoagulant therapy: Code(s): Z79.01 - half-way (current) use of anticoagulants Category: Medical
[2023-11-22 09:29] LABS: Prothrombin Time Whole Bld POC 35.2 sec (11.1-13.5); ~PT, ~INR - Anti Coag Clinic 2.9 (0.9-1.1)
== END 2023-11-22 09:41 | disposition home or self-care (01) ==
LOC: HO.ACS 09:21
PROVIDERS: PCP Internal Medicine; Visit Provider Internal Medicine
DX: Z79.01 Long term (current) use of anticoagulants (principal)

== ENCOUNTER → 2023-11-22 09:21 | Outpatient (BNVA) | payer MEDICARE, SELFPAY | PROVIDERS: PCP Internal Medicine; Visit Provider Internal Medicine | DX: I48.19 Other persistent atrial fibrillation (principal); I26.99 Other pulmonary embolism without acute cor pulmonale; Z79.01 Long term (current) use of anticoagulants; Z51.81 Encounter for therapeutic drug level monitoring | CPT/HCPCS: 85610; 99211 ==

== ENCOUNTER 2023-12-06 09:17 | Outpatient (AMB) | payer MEDICARE, SELFPAY ==
--- NOTE | 2023-12-06 09:27 | MHC.OFFVISCO ---
Intake Intake Visit Reasons: Anticoagulation Allergies amlodipine Allergy (Intermediate, Verified 12/06/23 09:19) Difficulty Breathing latex [LATEX] Allergy (Intermediate, Verified 12/06/23 09:19) RASH seasonal Allergy (Intermediate, Uncoded 12/06/23 09:19) Sneezing altace Adverse Reaction (Mild, Uncoded 12/06/23 09:19) Cough Medication List - Last Reconciled 12/06/23 by Sherrell Ya RN atenolol 50 mg PO BID cholecalciferol (vitamin D3) 25 mcg PO DAILY digoxin 0.25 mg PO DAILY fluticasone furoate 100 mcg/actuation (Arnuity Ellipta) 1 inh inhalation DAILY 30 days losartan 50 mg PO DAILY Oxygen Home Use As directed warfarin 5 mg See Protocol PO DAILY Nursing Note INR 1.7-?? out of therapeutic range of 2-3 Medications and supplements reviewed Patient status: no c.o, pt states missed a dose Medications or supplements: med list provided, pt states not taking vit d or ellipta- pulm aware per pt Diet: good Denies any signs and symptoms of bleeding or clotting or unusual bruising Bleeding, bruising, clotting discussed Nutritional guidance given: no greens for 2-3 days. eat a red to raise Dose: 7.5mg today and tomm then cont reg dosing, 7.5mg x 6. 5mg x 1 F/U INR Date : 2 weeks?? Patient verbalizing understanding of instructions given. 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 Illness/Depression: No Coding Level of Care Code Est Patient Level 1 Diagnoses Current use of anticoagulant therapy Z79.01 Assessment & Plan Assessment & Plan (1) Current use of anticoagulant therapy: Code(s): Z79.01 - assisted (current) use of anticoagulants Category: Medical
[2023-12-06 09:28] LABS: Prothrombin Time Whole Bld POC 20.7 sec (11.1-13.5); ~PT, ~INR - Anti Coag Clinic 1.7 (0.9-1.1)
== END 2023-12-06 09:36 | disposition home or self-care (01) ==
LOC: HO.ACS 09:17
PROVIDERS: PCP Internal Medicine; Visit Provider Internal Medicine
DX: Z79.01 Long term (current) use of anticoagulants (principal)

== ENCOUNTER → 2023-12-06 09:17 | Outpatient (BNVA) | payer MEDICARE, SELFPAY | PROVIDERS: PCP Internal Medicine; Visit Provider Internal Medicine | DX: I48.19 Other persistent atrial fibrillation (principal); I26.99 Other pulmonary embolism without acute cor pulmonale; Z79.01 Long term (current) use of anticoagulants; Z51.81 Encounter for therapeutic drug level monitoring | CPT/HCPCS: 85610; 99211 ==

== ENCOUNTER 2023-12-08 12:42 | Outpatient (REF) | payer MEDICARE, SELFPAY ==
--- NOTE | ~2023-12-08 | US_ITS ---
EXAMINATION: US THYROID CLINICAL INFORMATION: Goiter. COMPARISON: None available. TECHNIQUE: Linear transducer grayscale and color Doppler examination with attention to the region of the thyroid. FINDINGS: SIZE: Measurements of the thyroid lobes and nodules are given in sagittal, anteroposterior and transverse dimensions respectively. Right Thyroid Lobe: 4.9 x 2.0 x 1.4 cm, volume 7.4 mL. Parenchyma: The gland echotexture is heterogeneous. Thyroid vascularity is normal. Left Thyroid Lobe: 4.7 x 2.6 x 1.5 cm, volume 9.6 mL. Parenchyma: The gland echotexture is heterogeneous. Thyroid vascularity is normal. Isthmus: 1.0 cm in maximum AP dimension. Estimated total number of nodules greater than or equal to 1 cm: 2. Trash Collector nodules are described as follows: 1. Location: Right superior. Size: 1.1 x 0.92 x 1.8 cm, volume 0.95 mL. Nodule characteristics: Composition: Spongiform (0). Echogenicity: Isoechoic (1). Shape: Not taller than wide (0). Margins: Ill-defined (0). Echogenic Foci: None (0). ACR TI-RADS total points: 1 ACR TI-RADS category: 1 2. Location: Left inferior. Size: 0.47 x 0.32 x 0.45 cm, volume 0.04 mL. Nodule characteristics: Composition: Solid (2). Echogenicity: Hyperechoic (1). Shape: Not taller than wide (0). Margins: Smooth (0). Echogenic Foci: None (0). ACR TI-RADS total points: 3 ACR TI-RADS category: 3 3. Location: Left mid. Size: 1.0 x 0.56 x 1.3 cm, volume 0.40 mL. Nodule characteristics: Composition: Spongiform (0). Echogenicity: Hypoechoic 1 Shape: Not taller than wide (0). Margins: Ill-defined (0). Echogenic Foci: None (0). ACR TI-RADS total points: 1 ACR TI-RADS category: 1 NODES: No lymphadenopathy is seen in the tissue surrounding the thyroid gland. US/US thyroid IMPRESSION: Multinodular goiter, heterogeneous thyroid gland. No suspicious nodules ACR TI-RADS RECOMMENDATION REFERENCE: Ultrasound-guided fine-needle aspiration, followup ultrasound, no further follow up. * TR1 (0 point) and TR2 (2 points): No FNA or follow up. * TR3 (3 points): FNA if more than or equal to 2.5 cm in maximum dimension, followup ultrasound in 1, 3 and 5 years if 1.5 to 2.4 cm in maximum dimension. * TR4 (4-6 points): FNA if more than or equal to 1.5 cm in maximum dimension, followup ultrasound in 1, 2, 3 and 5 years if 1 to 1.4 cm in maximum dimension. * TR5 (more than or equal to 7 points): FNA if more than or equal to 1 cm in maximum dimension, followup ultrasound every year for 5 years if 0.5 to 0.9 cm in maximum dimension. * TR3, TR4 or TR5 nodules that are below the size threshold for followup receive no follow up. Electronically signed by: Tonio Gale MD 12/29/2023 02:40 PM [facility]
== END 2023-12-08 12:43 | disposition home or self-care (01) ==
LOC: HO.HMGCX 12:42
PROVIDERS: PCP Internal Medicine; Visit Provider Internal Medicine
DX: E04.2 Nontoxic multinodular goiter (principal)
CPT/HCPCS: 76536

== ENCOUNTER 2023-12-20 09:16 | Outpatient (AMB) | payer MEDICARE, SELFPAY ==
[2023-12-20 09:24] LABS: Prothrombin Time Whole Bld POC 31.9 sec (11.1-13.5); ~PT, ~INR - Anti Coag Clinic 2.7 (0.9-1.1)
--- NOTE | 2023-12-20 09:33 | MHC.OFFVISCO ---
Intake Intake Visit Reasons: Anticoagulation Allergies amlodipine Allergy (Intermediate, Verified 12/20/23 09:19) Difficulty Breathing latex [LATEX] Allergy (Intermediate, Verified 12/20/23 09:19) RASH seasonal Allergy (Intermediate, Uncoded 12/20/23 09:19) Sneezing altace Adverse Reaction (Mild, Uncoded 12/20/23 09:19) Cough Medication List - Last Reconciled 12/20/23 by Tricia Kilgore RN atenolol 50 mg PO BID cholecalciferol (vitamin D3) 25 mcg PO DAILY digoxin 0.25 mg PO DAILY fluticasone furoate 100 mcg/actuation (Arnuity Ellipta) 1 inh inhalation DAILY 30 days losartan 50 mg PO DAILY Oxygen Home Use As directed warfarin 5 mg See Protocol PO DAILY Nursing Note INR: 2.7 in therapeutic range of 2-3 Medications and supplements reviewed No changes in health, diet, medications, or supplements, Denies any signs and symptoms of bleeding or bruising or clotting. 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 Illness/Depression: No Coding Level of Care Code Est Patient Level 1 Diagnoses Current use of anticoagulant therapy Z79.01 Assessment & Plan Assessment & Plan (1) Current use of anticoagulant therapy: Code(s): Z79.01 - senior care (current) use of anticoagulants Category: Medical
== END 2023-12-20 09:35 | disposition home or self-care (01) ==
LOC: HO.ACS 09:16
PROVIDERS: PCP Internal Medicine; Visit Provider Internal Medicine
DX: Z79.01 Long term (current) use of anticoagulants (principal)

== ENCOUNTER → 2023-12-20 09:16 | Outpatient (BNVA) | payer MEDICARE, SELFPAY | PROVIDERS: PCP Internal Medicine; Visit Provider Internal Medicine | DX: I48.19 Other persistent atrial fibrillation (principal); I26.99 Other pulmonary embolism without acute cor pulmonale; Z79.01 Long term (current) use of anticoagulants; Z51.81 Encounter for therapeutic drug level monitoring | CPT/HCPCS: 85610; 99211 ==

== ENCOUNTER 2024-01-04 09:13 | Outpatient (AMB) | payer MEDICARE, SELFPAY ==
[2024-01-04 09:39] LABS: Prothrombin Time Whole Bld POC 30.6 sec (11.1-13.5); ~PT, ~INR - Anti Coag Clinic 2.6 (0.9-1.1)
--- NOTE | 2024-01-04 09:56 | MHC.OFFVISCO ---
Intake Intake Visit Reasons: Anticoagulation Allergies amlodipine Allergy (Intermediate, Verified 01/04/24 09:32) Difficulty Breathing latex [LATEX] Allergy (Intermediate, Verified 01/04/24 09:32) RASH seasonal Allergy (Intermediate, Uncoded 12/20/23 09:19) Sneezing altace Adverse Reaction (Mild, Uncoded 12/20/23 09:19) Cough Medication List - Last Reconciled 01/04/24 by Corinna Raphael RN atenolol 50 mg PO BID cholecalciferol (vitamin D3) 25 mcg PO DAILY digoxin 0.25 mg PO DAILY fluticasone furoate 100 mcg/actuation (Arnuity Ellipta) 1 inh inhalation DAILY 30 days losartan 50 mg PO DAILY Oxygen Home Use As directed warfarin 5 mg See Protocol PO DAILY Nursing Note NO CP,SOB,DIET/MED CHANGES,FALLS OR SX OF BLEEDING. CONTINUE PRESENT DOSING AND FOLLOW-UP IN 3 WEEKS. GOOD UNDERSTANDING OF DOSING INSTR. 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
== END 2024-01-04 09:58 | disposition home or self-care (01) ==
LOC: HO.ACS 09:13
PROVIDERS: PCP Internal Medicine; Visit Provider Internal Medicine
DX: Z79.01 Long term (current) use of anticoagulants (principal)

== ENCOUNTER → 2024-01-04 09:13 | Outpatient (BNVA) | payer MEDICARE, SELFPAY | PROVIDERS: PCP Internal Medicine; Visit Provider Internal Medicine | DX: I48.19 Other persistent atrial fibrillation (principal); I26.99 Other pulmonary embolism without acute cor pulmonale; Z79.01 Long term (current) use of anticoagulants; Z51.81 Encounter for therapeutic drug level monitoring | CPT/HCPCS: 85610; 99211 ==

== ENCOUNTER 2024-01-25 09:27 | Outpatient (AMB) | payer MEDICARE, SELFPAY ==
[2024-01-25 09:34] LABS: Prothrombin Time Whole Bld POC 38.8 sec (11.1-13.5); ~PT, ~INR - Anti Coag Clinic 3.2 (0.9-1.1)
--- NOTE | 2024-01-25 09:38 | MHC.OFFVISCO ---
Intake Intake Visit Reasons: Anticoagulation Allergies amlodipine Allergy (Intermediate, Verified 01/25/24 09:28) Difficulty Breathing latex [LATEX] Allergy (Intermediate, Verified 01/25/24 09:28) RASH seasonal Allergy (Intermediate, Uncoded 12/20/23 09:19) Sneezing altace Adverse Reaction (Mild, Uncoded 12/20/23 09:19) Cough Medication List - Last Reconciled 01/25/24 by Corinna Raphael RN atenolol 50 mg PO BID cholecalciferol (vitamin D3) 25 mcg PO DAILY digoxin 0.25 mg PO DAILY fluticasone furoate 100 mcg/actuation (Arnuity Ellipta) 1 inh inhalation DAILY 30 days losartan 50 mg PO DAILY Oxygen Home Use As directed warfarin 5 mg See Protocol PO DAILY Nursing Note PT.STATES THAT SHE HAS EATEN DIFFERENTLY OVER THE HOLIDAY. NO CP,SOB,MED CHANGES,FALLS OR SX OF BLEEDING. CONTINUE PRESNT DOSE AND FOLLOW-UP ON 02/09. DARK [place]REE[place] TODAY GOOD UNDERSTANDFINGH OF DOSING INSTR. 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
--- OUTSIDE RECORDS SUMMARY | 2024-01-31 17:06 | XMS_ITS ---
Author Organization [facility] Address [address] [place] [id number] Care Team Providers Care Accounts Payable Processor Name Role Phone Darrell Sutherland MD Primary Care Provider UnavailJay Hagen Unavailable [phone] Encounters Encounter Location Date Provider Diagnosis [facility] [address] [place] [address] 05/20/2023 Jay Guido PLAN OF TREATMENT No Information
--- OUTSIDE RECORDS SUMMARY | 2024-01-31 17:07 | XMS_ITS ---
Author Organization [facility] Address [address] [place] [address] Care Team Providers Care Rip Tailer Name Role Phone Darrell Sutherland MD Primary Care Provider Unavaila ble Jay Guido Unavailable [phone] REASON FOR VISIT lower GI bleed PROBLEMS Problem Type ICD Code Onset Dates Problem Status W/U Status Risk SNOMED Code Notes Problem Diverticulosis of large intestine without perforation or abscess without bleeding (K57.30) Active confirmed Diverticul ar disease of colon (944804368) Encounters Encounter Location Date Provider Diagnosis [facility] [place] Outpatient [address] [place] [phone] 05/19/2023 Jay Guido Colon polyps K63.5 ; Lower GI bleeding K92.2 ; Diverticulosis of large intestine without perforation or abscess without bleeding K57.30 and Other hemorrhoids K64.8 ASSESSMENTS Encounter Date Diagnosis Assessment Notes Treatment Notes Treatment Clinical Notes 05/19/2023 Colon polyps (ICD-10 - K63.5) 05/19/2023 Lower GI bleeding (ICD-10 - K92.2) 05/19/2023 Diverticulosis of large intestine without perforation or abscess without bleeding (ICD-10 - K57.30) 05/19/2023 Other hemorrhoids (ICD-10 - K64.8) PLAN OF TREATMENT No Information
--- OUTSIDE RECORDS SUMMARY | 2024-01-31 17:07 | XMS_ITS | Patient Health Record ---
Author Organization [facility] Address [address] [place] [address] Care Team Providers Care House Builder Name Role Phone Darrell Sutherland MD Primary Care Provider Dylon Leary Unavailable [phone] Allergies Allergen (clinical drug ingredient) Drug/Non Drug Allergy documented on EMR Reaction Allergy Type Onset Date Status Latex Latex rash Allergy Active Reason For Referral No Information Medications Medication SIG (Take, Route, Frequency, Duration) Notes Start Date End Date Status Aleve Active Atenolol 25 MG 1 tablet Orally Once a day for 30 day(s) Active Vitamin D Active hydroCHLOROthiazide 25 MG 1 tablet in th e morning Orally Once a day Active Social History Tobacco Use: Social History Observation Description Date Details (start date - stop date) Never Smoker NA - NA Tobacco Use/Smoking Question Answer Notes Are you a: nonsmoker Alcohol Screen Question Answer Notes Did you have a drink containing alcohol in the p ast year? No Points 0 Interpretation Negative Tobacco use other than smoking: Question Answer Notes Are you an other tobacco user? No Problems Problem Type SNOMED Code ICD Code Onset Dates Problem Status W/U Status Risk Notes Problem Acquired hallux valgus (32723673) Hallux valgus (acquired), left foot (M20.12) Active confirmed Problem Acquired hallux valgus (61236591) Hallux valgus (acquired), right foot (M20.11) Active confirmed Problem Acquired hammer toe of right foot ([id number] 105) Other hammer toe(s) (acquired), right foot (M20.41) Active confirmed Problem Acquired hammer toe of left foot ([id number] 103) Other hammer toe(s) (acquired), left foot (M20.42) Active confirmed Plan Of Treatment Pending Test Test Name Order Date X ray : Foot, right 3V 06/05/2020 Insurance Providers Payer Name Payer Address Payer Phone Subscriber Number Group Number Insured Name Patient Relationship to Insured Coverage Start Date Coverage End Date Medicare [employer] [address] [place] [address] [id number] Sudha Meek Self - patient is the insured [employer] [address] [place] [address] [id number] Sudha Meek Self - patient is the insured Medical (General) History Medical History History ICD Code High blood pressure Surgical History Surgery Date(Month/Year) right knee replacement 10/2016
--- OUTSIDE RECORDS SUMMARY | 2024-01-31 17:07 | XMS_ITS | Patient Health Record ---
Author Organization [facility] Address [address] [place] [address] Care Team Providers Care Orthopaedic Physician Assistant Name Role Phone Darrell Sutherland MD Primary Care Provider Jay Talbot [phone] ALLERGIES No Known Allergies RESULTS Component Value Reference Range Notes Pathology Reviewed date:05/23/2023 06:35:18 PM Interpretation: Performing Lab:[facility], [address] [place] [id number] Notes/Report: REASON FOR REFERRAL No Information MEDICATIONS Medication SIG (Take, Route, Frequency, Duration) Notes Start Date End Date Status Digoxin 250 MCG Oral for 30 Ac tive Losartan Potassium 50 MG Oral for 30 Active Atenolol 50 MG 1 tablet Orally Once a day Active Lovenox Active Vitamin D Active SOCIAL HISTORY Sex Assigned At : Social History Observation Description Sex Assigned At Unknown PROBLEMS Problem Type ICD Code Onset Dates Problem Status W/U Status Risk SNOMED Code Notes Problem Diverticulosis of large intestine without perforation or abscess without bleeding (K57.30) Active confirmed Diverticul ar disease of colon (824887406) Problem Lower GI bleed (K92.2) Active confirmed Gastrointestina l hemorrhage (87672703) VITAL SIGNS Temperature 97.7 degrees Fahrenheit 05/12/2023 Blood pressure diastolic 00 mm Hg 05/12/2023 Height 60 in 05/12/2023 Blood pressure systolic 00 mm Hg 05/12/2023 Weight 157 lbs 05/12/2023 BMI 30.66 kg/m2 05/12/2023 Encounters Encounter Location Date Provider Diagnosis [facility] Outpatient [address] [place] [phone] 05/19/2023 Jay Guido Colon polyps K63.5 ; Lower GI bleeding K92.2 ; Diverticulosis of large intestine without perforation or abscess without bleeding K57.30 and Other hemorrhoids K64.8 [facility] [address] [place] [address] 05/12/2023 Jay Lata Lower GI bleed K92.2 [facility] [address] [place] [address] 05/20/2023 Jay Guido ASSESSMENTS Encounter Date Diagnosis Assessment Notes Treatment Notes Treatment Clinical Notes 05/19/2023 Colon polyps (ICD-10 - K63.5) 05/19/2023 Lower GI bleeding (ICD-10 - K92.2) 05/12/2023 Lower GI bleed (ICD-10 - K92.2) You can use Lovenox and take the last dose the evening before the colonoscopy. Go to the ER if you have recurrent bleeding. 05/19/2023 Diverticulosis of large intestine without perforation or abscess without bleeding (ICD-10 - K57.30) 05/19/2023 Other hemorrhoids (ICD-10 - K64.8) PLAN OF TREATMENT Future Test Test Name Order Date COLONOSCOPY 02/27/2013 COLONOSCOPY 05/12/2023 Insurance Providers Payer Name Payer Address Payer Phone Subscriber Number Group Number Insured Name Patient Relationship to Insured Coverage Start Date Coverage End Date MEDICARE OF [place] [address] [place] [address] [id number] ROLAN GEORGE Self - patient is the insured MEDEX ATTN CLAIMS [address] [place] [address] [id number] ROLAN GEORGE Self - patient is the insured MEDICAL (GENERAL) HISTORY Medical History History ICD Code Choledocholithiasis--removed via ERCP in 02/2010 prior to Lap CCY Hypertension Denies [place],DM,CVA,renal disease AFIB - Dr. Ryan--Unsuccessful cardiover shanthi 02/2023 Interstitiail lung disease-Dr. 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
--- OUTSIDE RECORDS SUMMARY | 2024-01-31 17:07 | XMS_ITS ---
Author Organization [facility] Address [address] [place] [address] Care Team Providers Care Day Care Aide Name Role Phone Darrell Sutherland MD Primary Care Provider Jay Talbot Unavailable [phone] ALLERGIES No Known Allergies REASON FOR VISIT Rectal bleeding MEDICATIONS Medication SIG (Take, Route, Frequency, Duration) Notes Start Date End Date Status Digoxin 250 MCG Oral for 30 Ac tive Losartan Potassium 50 MG Oral for 30 Active Atenolol 50 MG 1 tablet Orally Once a day Active Lovenox Active Vitamin D Active SOCIAL HISTORY Tobacco Use: Social History Observation Description Date Details (start date - stop date) Never Smoker NA - NA Sex Assigned At : Social History Observation Description Sex Assigned At Unknown Tobacco Use/Smoking Question Answer Notes Patient is [...] past year? Monthly or less (1 point) PROBLEMS Problem Type ICD Code Onset Dates Problem Status W/U Status Risk SNOMED Code Notes Problem Lower GI bleed (K92.2) Active confirmed Gastrointestina l hemorrhage (41771925) VITAL SIGNS BMI 30.66 kg/m2 05/12/2023 Blood pressure systolic 00 mm Hg 05/12/19 24 Blood pressure diastolic 00 mm Hg 024 Height 60 in 05/12/2023 Temperature 97.7 degrees Fahrenheit 05/12/19 24 Weight 157 lbs 05/12/2023 Encounters Encounter Location Date Provider Diagnosis [facility] [address] [place] [address] 05/12/2023 Jay Guido Lower GI bleed K92.2 ASSESSMENTS Encounter Date Diagnosis Assessment Notes Treatment Notes Treatment Clinical Notes 05/12/2023 Lower GI bleed (ICD-10 - K92.2) You can use Lovenox and take the last dose the evening before the colonoscopy. Go to the ER if you have recurrent bleeding. PLAN OF TREATMENT Treatment Notes Assessment Notes Lower GI bleed You can use Lovenox and take the last dose the evening before the colonoscopy. Go to the ER if you have recurrent bleeding. Future Test Test Name Order Date COLONOSCOPY 05/12/2023 Next Appt Details Follow Up: prn, Reason: Progress Notes * Examination Category Sub-Category Detail Notes General Examination GENERAL APPEARANCE: pleasant , well [...]
== END 2024-01-25 09:40 | disposition home or self-care (01) ==
LOC: HO.ACS 09:27
PROVIDERS: PCP Internal Medicine; Visit Provider Internal Medicine
DX: Z79.01 Long term (current) use of anticoagulants (principal)

== ENCOUNTER → 2024-01-25 09:27 | Outpatient (BNVA) | payer MEDICARE, SELFPAY | PROVIDERS: PCP Internal Medicine; Visit Provider Internal Medicine | DX: I48.19 Other persistent atrial fibrillation (principal); I26.99 Other pulmonary embolism without acute cor pulmonale; Z79.01 Long term (current) use of anticoagulants; Z51.81 Encounter for therapeutic drug level monitoring | CPT/HCPCS: 85610; 99211 ==

== ENCOUNTER 2024-01-30 08:19 | Outpatient (REF) | payer MEDICARE, SELFPAY ==
[2024-01-30 10:48] LABS: Digoxin 0.4 ng/mL (0.8-2.0)
--- OUTSIDE RECORDS SUMMARY | 2024-02-01 12:53 | XMS_ITS ---
Author Organization [facility] Address [address] [place] [address] Care Team Providers Care Polishing Pad Mounter Name Role Phone Darrell Sutherland MD Primary Care Provider UnavailJay Hagen Unavailable [phone] Encounters Encounter Location Date Provider Diagnosis [facility] [address] [place] [address] 05/20/2023 Jay Guido PLAN OF TREATMENT No Information
--- OUTSIDE RECORDS SUMMARY | 2024-02-01 12:53 | XMS_ITS ---
Author Organization [facility] Address [address] [place] [address] Care Team Providers Care Duplex Trimmer Name Role Phone Darrell Sutherland MD Primary Care Provider Jay Talbot Unavailable [phone] ALLERGIES No Known Allergies REASON FOR VISIT [...] bleed (K92.2) Active confirmed Gastrointestina l hemorrhage (92628532) VITAL SIGNS BMI 30.66 kg/m2 05/12/2023 Blood pressure systolic 00 mm Hg 05/12/19 24 Blood pressure diastolic 00 mm Hg 024 Height 60 in 05/12/2023 Temperature 97.7 degrees Fahrenheit 05/12/19 24 Weight 157 lbs 05/12/2023 Encounters Encounter Location Date Provider Diagnosis [facility] [address] [place] [address] 05/12/2023 Jay Guido Lower GI bleed K92.2 [...]
--- OUTSIDE RECORDS SUMMARY | 2024-02-01 12:53 | XMS_ITS ---
Author Organization [facility] Address [address] [place] [address] Care Team Providers Care Statistics Teacher Name Role Phone Darrell Sutherland MD Primary Care Provider Unavaila ble Jay Guido Unavailable [phone] REASON FOR VISIT lower GI bleed PROBLEMS Problem Type ICD Code Onset Dates Problem Status W/U Status Risk SNOMED Code Notes Problem Diverticulosis of large intestine without perforation or abscess without bleeding (K57.30) Active confirmed Diverticul ar disease of colon (956812689) Encounters Encounter Location Date Provider Diagnosis [facility] Outpatient [address] [place] [id number] 05/19/2023 Jay Guido Colon polyps K63.5 ; [...]
--- OUTSIDE RECORDS SUMMARY | 2024-02-01 12:54 | XMS_ITS | Patient Health Record ---
Author Organization [facility] Address [address] [place] [address] Care Team Providers Care Clinic Business Manager Name Role Phone Darrell Sutherland MD Primary Care Provider Jay Talbot [phone] ALLERGIES No Known Allergies RESULTS Component Value Reference Range Notes Pathology Reviewed date:05/23/2023 06:35:18 PM Interpretation: Performing Lab:[facility], [address] [place] [phone] Notes/Report: REASON FOR REFERRAL No Information MEDICATIONS [...] Active confirmed Diverticul ar disease of colon (361676905) Problem Lower GI bleed (K92.2) Active confirmed Gastrointestina l hemorrhage (59224251) VITAL SIGNS Temperature 97.7 degrees Fahrenheit 05/12/2023 Blood pressure diastolic 00 mm Hg 05/12/2023 Height 60 in 05/12/2023 Blood pressure systolic 00 mm Hg 05/12/2023 Weight 157 lbs 05/12/2023 BMI 30.66 kg/m2 05/12/2023 Encounters Encounter Location Date Provider Diagnosis [facility] [address] [place] [id number] 05/19/2023 Jay Guido Colon polyps K63.5 ; Lower GI bleeding K92.2 ; Diverticulosis of large intestine without perforation or abscess without bleeding K57.30 and Other hemorrhoids K64.8 [facility] [address] [place] [address] 05/12/2023 Jay Lata Lower GI bleed K92.2 [facility] [address] [place] [address] 05/20/2023 Jay Guido ASSESSMENTS Encounter Date Diagnosis [...] Date MEDICARE OF [place] [address] [facility] [place] [address] [id number] ROLAN GEORGE Self - patient is the insured MEDEX ATTN CLAIMS [address] [place] [address] [id number] ROLAN GEORGE Self - patient is the insured MEDICAL (GENERAL) HISTORY Medical History History ICD Code Choledocholithiasis--removed via ERCP in 02/2010 prior to Lap [facility] Hypertension Denies [place],DM,CVA,renal disease AFIB - Dr. 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
--- OUTSIDE RECORDS SUMMARY | 2024-02-01 12:54 | XMS_ITS | Patient Health Record ---
Author Organization [facility] Address [address] [place] [address] Care Team Providers Care High Pressure Boiler Operator Name Role Phone Darrell Sutherland MD Primary Care Provider Dylon Leary Unavailable [phone] Allergies Allergen (clinical drug ingredient) Drug/Non Drug [...] Status Risk Notes Problem Acquired hallux valgus (16428277) Hallux valgus (acquired), left foot (M20.12) Active confirmed Problem Acquired hallux valgus (40811630) Hallux valgus (acquired), right foot (M20.11) Active confirmed Problem Acquired hammer toe of right foot (0899158516628 105) Other hammer toe(s) (acquired), right foot (M20.41) Active confirmed Problem Acquired hammer toe of left foot (6322925331380 103) Other hammer toe(s) (acquired), left foot (M20.42) Active confirmed Plan Of Treatment Pending Test Test Name Order Date X ray : Foot, right 3V 06/05/2020 Insurance Providers Payer Name Payer Address Payer Phone Subscriber Number Group Number Insured Name Patient Relationship to Insured Coverage Start Date Coverage End Date Medicare National Govt Svcs Inc [address] [place] [address] [id number] Sudha Meek Self - patient is the insured [employer] Blue Shield [address] [place] [address] [id number] Sudha Meek Self - patient is the insured Medical (General) History Medical History History ICD Code High blood pressure Surgical History Surgery Date(Month/Year) right knee replacement 10/2016
== END 2024-01-30 08:20 | disposition home or self-care (01) ==
LOC: HO.HMGCLDS 08:19
PROVIDERS: PCP Internal Medicine; Visit Provider Internal Medicine Cardiovascular Disease
DX: I48.20 Chronic atrial fibrillation, unspecified (principal); Z79.899 Other long term (current) drug therapy
CPT/HCPCS: 36415; 80162

== ENCOUNTER 2024-02-10 10:30 | Outpatient (AMB) | payer MEDICARE, SELFPAY ==
[2024-02-10 10:43] LABS: Prothrombin Time Whole Bld POC 34.8 sec (11.1-13.5); ~PT, ~INR - Anti Coag Clinic 2.9 (0.9-1.1)
--- NOTE | 2024-02-10 10:50 | MHC.OFFVISCO ---
Intake Intake Visit Reasons: Anticoagulation Allergies amlodipine Allergy (Intermediate, Verified 02/10/24 10:36) Difficulty Breathing latex [LATEX] Allergy (Intermediate, Verified 02/10/24 10:36) RASH seasonal Allergy (Intermediate, Uncoded 12/20/23 09:19) Sneezing altace Adverse Reaction (Mild, Uncoded 12/20/23 09:19) Cough Medication List - Last Reconciled 02/10/24 by Corinna Raphael RN atenolol 50 mg PO BID cholecalciferol (vitamin D3) 25 mcg PO DAILY digoxin 0.25 mg PO DAILY fluticasone furoate 100 mcg/actuation (Arnuity Ellipta) 1 inh inhalation DAILY 30 days losartan 50 mg PO DAILY Oxygen Home Use As directed warfarin 5 mg See Protocol PO DAILY Nursing Note NO CP,SOB,DIET/MED CHANGES,FALLS OR SX OF BLEEDING. CONTINUE PRESENT DOSE AND FOLLOW-UP IN 3 WEEKS. GOOD UNDERSTANDING OF DOSING INSTR. 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 Illness/Depression: No Coding Level of Care Code Est Patient Level 1 Diagnoses Current use of anticoagulant therapy Z79.01 Assessment & Plan Assessment & Plan (1) Current use of anticoagulant therapy: Code(s): Z79.01 - skilled nursing (current) use of anticoagulants Category: Medical
--- OUTSIDE RECORDS SUMMARY | 2024-02-10 10:53 | XMS_ITS | Patient Health Record ---
Author Organization [facility] Address [address] [place] [address] Care Team Providers Care Care Assistant Name Role Phone Darrell Sutherland MD Primary Care Provider Jay Talbot [phone] ALLERGIES No Known Allergies RESULTS Component Value Reference Range Notes Pathology Reviewed date:05/23/2023 06:35:18 PM Interpretation: Performing Lab:[facility], [address] [place] [phone] Notes/Report: REASON FOR REFERRAL No Information MEDICATIONS [...] Active confirmed Diverticul ar disease of colon (066807279) Problem Lower GI bleed (K92.2) Active confirmed Gastrointestina l hemorrhage (99110767) VITAL SIGNS Temperature 97.7 degrees Fahrenheit 05/12/2023 Blood pressure diastolic 00 mm Hg 05/12/2023 Height 60 in 05/12/2023 Blood pressure systolic 00 mm Hg 05/12/2023 Weight 157 lbs 05/12/2023 BMI 30.66 kg/m2 05/12/2023 Encounters Encounter Location Date Provider Diagnosis [facility] [place] [address] [place] [id number] 05/19/2023 Jay Guido Colon polyps K63.5 ; Lower GI bleeding K92.2 ; Diverticulosis of large intestine without perforation or abscess without bleeding K57.30 and Other hemorrhoids K64.8 [facility] [address] [place] [address] 05/12/2023 Jay Lata Lower GI bleed K92.2 [facility] [address] [place] [address] 05/20/2023 Jay Guido ASSESSMENTS Encounter Date Diagnosis [...] Date MEDICARE OF [place] [address] [facility] [place] [address] [id number] ROLAN GEORGE Self - patient is the insured MEDEX ATTN CLAIMS [address] [place] [address] [id number] ROLAN GEORGE Self - patient is the insured MEDICAL (GENERAL) HISTORY Medical History History ICD Code Choledocholithiasis--removed via ERCP in 02/2010 prior to Lap CCY Hypertension Denies [place],DM,CVA,renal disease AFIB - Dr. 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
--- OUTSIDE RECORDS SUMMARY | 2024-02-10 10:53 | XMS_ITS ---
Author Organization [facility] Address [address] [place] [address] Care Team Providers Care Spray Drier Operator Name Role Phone Darrell Sutherland MD Primary Care Provider Unavaila ble Jay Guido Unavailable [phone] REASON FOR VISIT lower GI bleed PROBLEMS Problem Type ICD Code Onset Dates Problem Status W/U Status Risk SNOMED Code Notes Problem Diverticulosis of large intestine without perforation or abscess without bleeding (K57.30) Active confirmed Diverticul ar disease of colon (709038363) Encounters Encounter Location Date Provider Diagnosis [facility] Outpatient [address] [place] [id number] 05/19/2023 Jay Guido Colon polyps K63.5 ; [...]
--- OUTSIDE RECORDS SUMMARY | 2024-02-10 10:53 | XMS_ITS | Patient Health Record ---
Author Organization [facility] Address [address] [place] [address] Care Team Providers Care Warp Hand Name Role Phone Darrell Sutherland MD Primary Care Provider Dylon Leary Unavailable [phone] Allergies Allergen (clinical drug ingredient) Drug/Non Drug [...] Status Risk Notes Problem Acquired hallux valgus (99201391) Hallux valgus (acquired), left foot (M20.12) Active confirmed Problem Acquired hallux valgus (35212879) Hallux valgus (acquired), right foot (M20.11) Active confirmed Problem Acquired hammer toe of right foot (5213560275540 105) Other hammer toe(s) (acquired), right foot (M20.41) Active confirmed Problem Acquired hammer toe of left foot (8346706829031 103) Other hammer toe(s) (acquired), left foot (M20.42) Active confirmed Plan Of Treatment Pending Test Test Name Order Date X ray : Foot, right 3V 06/05/2020 Insurance Providers Payer Name Payer Address Payer Phone Subscriber Number Group Number Insured Name Patient Relationship to Insured Coverage Start Date Coverage End Date Medicare National Govt Svcs Inc [address] [place] [address] [id number] Sudha Meek Self - patient is the insured [employer] Blue Shield [address] [place] [address] [id number] Sudha Meek Self - patient is the insured Medical (General) History Medical History History ICD Code High blood pressure Surgical History Surgery Date(Month/Year) right knee replacement 10/2016
--- OUTSIDE RECORDS SUMMARY | 2024-02-10 10:53 | XMS_ITS ---
Author Organization [facility] Address [address] [place] [address] Care Team Providers Care Program Manager Environmental Planning Name Role Phone Darrell Sutherland MD Primary Care Provider UnavailJay Hagen Unavailable [phone] Encounters Encounter Location Date Provider Diagnosis [facility] [address] [place] [address] 05/20/2023 Jay Guido PLAN OF TREATMENT No Information
--- OUTSIDE RECORDS SUMMARY | 2024-02-10 10:53 | XMS_ITS ---
Author Organization [facility] Address [address] [place] [address] Care Team Providers Care Welding Lead Burner Name Role Phone Darrell Sutherland MD Primary Care Provider Jay Talbot Unavailable [phone] ALLERGIES No Known Allergies REASON FOR VISIT [...] bleed (K92.2) Active confirmed Gastrointestina l hemorrhage (09338658) VITAL SIGNS BMI 30.66 kg/m2 05/12/2023 Blood pressure systolic 00 mm Hg 05/12/19 24 Blood pressure diastolic 00 mm Hg 024 Height 60 in 05/12/2023 Temperature 97.7 degrees Fahrenheit 05/12/19 24 Weight 157 lbs 05/12/2023 Encounters Encounter Location Date Provider Diagnosis [facility] [address] [place] [address] 05/12/2023 Jay Guido Lower GI bleed K92.2 [...]
== END 2024-02-10 10:51 | disposition home or self-care (01) ==
LOC: HO.ACS 10:30
PROVIDERS: PCP Internal Medicine; Visit Provider Internal Medicine
DX: Z79.01 Long term (current) use of anticoagulants (principal)

== ENCOUNTER → 2024-02-10 10:30 | Outpatient (BNVA) | payer MEDICARE, SELFPAY | PROVIDERS: PCP Internal Medicine; Visit Provider Internal Medicine | DX: I48.19 Other persistent atrial fibrillation (principal); I26.99 Other pulmonary embolism without acute cor pulmonale; Z79.01 Long term (current) use of anticoagulants; Z51.81 Encounter for therapeutic drug level monitoring | CPT/HCPCS: 85610; 99211 ==

== ENCOUNTER 2024-03-02 09:15 | Outpatient (AMB) | payer MEDICARE, SELFPAY ==
--- OUTSIDE RECORDS SUMMARY | 2024-03-02 09:19 | XMS_ITS ---
Author Organization [facility] Address [address] [place] [address] Care Team Providers Care Certified Pest Control Technician Name Role Phone Darrell Sutherland MD Primary Care Provider Jay Talbot Unavailable [phone] ALLERGIES No Known Allergies REASON FOR VISIT [...] bleed (K92.2) Active confirmed Gastrointestina l hemorrhage (29085537) VITAL SIGNS BMI 30.66 kg/m2 05/12/2023 Blood pressure systolic 00 mm Hg 05/12/19 24 Blood pressure diastolic 00 mm Hg 024 Height 60 in 05/12/2023 Temperature 97.7 degrees Fahrenheit 05/12/19 24 Weight 157 lbs 05/12/2023 Encounters Encounter Location Date Provider Diagnosis [facility] [address] [place] [address] 05/12/2023 Jay Guido Lower GI bleed K92.2 [...]
--- OUTSIDE RECORDS SUMMARY | 2024-03-02 09:19 | XMS_ITS ---
Author Organization [facility] Address [address] [place] [address] Care Team Providers Care Trolley Coach Driver Name Role Phone Darrell Sutherland MD Primary Care Provider UnavailJay Hagen Unavailable [phone] Encounters Encounter Location Date Provider Diagnosis [facility] [address] [place] [address] 05/20/2023 Jay Guido PLAN OF TREATMENT No Information
--- OUTSIDE RECORDS SUMMARY | 2024-03-02 09:19 | XMS_ITS ---
Author Organization [facility] Address [address] [place] [address] Care Team Providers Care Wearing Apparel Shaker Name Role Phone Darrell Sutherland MD Primary Care Provider Unavaila ble Jay Guido Unavailable [phone] REASON FOR VISIT lower GI bleed PROBLEMS Problem Type ICD Code Onset Dates Problem Status W/U Status Risk SNOMED Code Notes Problem Diverticulosis of large intestine without perforation or abscess without bleeding (K57.30) Active confirmed Diverticul ar disease of colon (153115366) Encounters Encounter Location Date Provider Diagnosis [facility] [place] [address] [place] [phone] 05/19/2023 Jay Guido Colon polyps K63.5 ; [...]
--- OUTSIDE RECORDS SUMMARY | 2024-03-02 09:20 | XMS_ITS | Patient Health Record ---
Author Organization [facility] Address [address] [place] [address] Care Team Providers Care Hotel Valet Attendant Name Role Phone Darrell Sutherland MD Primary Care Provider Dylon Leary Unavailable [phone] Allergies Allergen (clinical drug ingredient) Drug/Non Drug [...] Status Risk Notes Problem Acquired hallux valgus (74387481) Hallux valgus (acquired), left foot (M20.12) Active confirmed Problem Acquired hallux valgus (28033069) Hallux valgus (acquired), right foot (M20.11) Active confirmed Problem Acquired hammer toe of right foot (8655526325570 105) Other hammer toe(s) (acquired), right foot (M20.41) Active confirmed Problem Acquired hammer toe of left foot (0021771429592 103) Other hammer toe(s) (acquired), left foot (M20.42) Active confirmed Plan Of Treatment Pending Test Test Name Order Date X ray : Foot, right 3V 06/05/2020 Insurance Providers Payer Name Payer Address Payer Phone Subscriber Number Group Number Insured Name Patient Relationship to Insured Coverage Start Date Coverage End Date Medicare National Govt Svcs Inc [address] [place] [address] [id number] Sudha Meek Self - patient is the insured [employer] Blue Shield [address] [place] [address] [id number] Sudha Meek Self - patient is the insured Medical (General) History Medical History History ICD Code High blood pressure Surgical History Surgery Date(Month/Year) right knee replacement 10/2016
--- OUTSIDE RECORDS SUMMARY | 2024-03-02 09:20 | XMS_ITS | Patient Health Record ---
Author Organization [facility] Address [address] [place] [address] Care Team Providers Care Time Stamp Assembler Name Role Phone Darrell Sutherland MD Primary Care Provider Jay Talbot [phone] ALLERGIES No Known Allergies RESULTS Component Value Reference Range Notes Pathology Reviewed date:05/23/2023 06:35:18 PM Interpretation: Performing Lab:[facility], [address] [place] [id number] Notes/Report: REASON FOR REFERRAL No Information MEDICATIONS [...] Active confirmed Diverticul ar disease of colon (625337779) Problem Lower GI bleed (K92.2) Active confirmed Gastrointestina l hemorrhage (39401608) VITAL SIGNS Temperature 97.7 degrees Fahrenheit 05/12/2023 Blood pressure diastolic 00 mm Hg 05/12/2023 Height 60 in 05/12/2023 Blood pressure systolic 00 mm Hg 05/12/2023 Weight 157 lbs 05/12/2023 BMI 30.66 kg/m2 05/12/2023 Encounters Encounter Location Date Provider Diagnosis [facility] Outpatient [address] [place] [id number] 05/19/2023 Jay Guido Colon polyps K63.5 ; Lower GI bleeding K92.2 ; Diverticulosis of large intestine without perforation or abscess without bleeding K57.30 and Other hemorrhoids K64.8 [facility] [address] [place] [address] 05/12/2023 Jay Lata Lower GI bleed K92.2 [facility] [address] [place] [address] 05/20/2023 Jay Guido ASSESSMENTS Encounter Date Diagnosis [...] Date MEDICARE OF [place] [address] [place] [address] [id number] ROLAN GEORGE Self - patient is the insured [employer] ATT[employer] CLAIMS [address] [place] [address] [id number] ROLAN GEORGE Self - patient is the insured MEDICAL (GENERAL) HISTORY Medical History History ICD Code Choledocholithiasis--removed via ERCP in 02/2010 prior to Lap [facility] Hypertension Denies [place],DM,CVA,renal disease AFIB - Dr. 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
[2024-03-02 09:42] LABS: ~PT, ~INR - Anti Coag Clinic 2.6 (0.9-1.1)
--- NOTE | 2024-03-02 09:50 | MHC.OFFVISCO ---
Intake Intake Visit Reasons: Anticoagulation Allergies amlodipine Allergy (Intermediate, Verified 02/10/24 10:36) Difficulty Breathing latex [LATEX] Allergy (Intermediate, Verified 02/10/24 10:36) RASH seasonal Allergy (Intermediate, Uncoded 12/20/23 09:19) Sneezing altace Adverse Reaction (Mild, Uncoded 12/20/23 09:19) Cough Nursing Note INR: 2.6 in therapeutic range Medications and supplements reviewed No changes in health, diet, medications, or supplements, Denies any signs and symptoms of bleeding or bruising or clotting. 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 Illness/Depression: No Coding Level of Care Code Est Patient Level 1 Diagnoses Current use of anticoagulant therapy Z79.01 Assessment & Plan Assessment & Plan (1) Current use of anticoagulant therapy: Code(s): Z79.01 - long-term (current) use of anticoagulants Category: Medical
== END 2024-03-02 09:54 | disposition home or self-care (01) ==
LOC: HO.ACS 09:15
PROVIDERS: PCP Internal Medicine; Visit Provider Internal Medicine
DX: Z79.01 Long term (current) use of anticoagulants (principal)

== ENCOUNTER → 2024-03-02 09:15 | Outpatient (BNVA) | payer MEDICARE, SELFPAY | PROVIDERS: PCP Internal Medicine; Visit Provider Internal Medicine | DX: I48.19 Other persistent atrial fibrillation (principal); I26.99 Other pulmonary embolism without acute cor pulmonale; Z79.01 Long term (current) use of anticoagulants; Z51.81 Encounter for therapeutic drug level monitoring | CPT/HCPCS: 85610; 99211 ==

== ENCOUNTER 2024-03-22 09:26 | Outpatient (AMB) | payer MEDICARE, SELFPAY ==
[2024-03-22 09:45] LABS: Prothrombin Time Whole Bld POC 24.9 sec (11.1-13.5); ~PT, ~INR - Anti Coag Clinic 2.1 (0.9-1.1)
--- NOTE | 2024-03-22 09:54 | MHC.OFFVISCO ---
Intake Intake Visit Reasons: Anticoagulation Allergies amlodipine Allergy (Intermediate, Verified 03/22/24 09:40) Difficulty Breathing latex [LATEX] Allergy (Intermediate, Verified 03/22/24 09:40) RASH seasonal Allergy (Intermediate, Uncoded 03/22/24 09:40) Sneezing altace Adverse Reaction (Mild, Uncoded 03/22/24 09:40) Cough Medication List - Last Reconciled 03/22/24 by Tricia Kilgore RN atenolol 50 mg PO BID cholecalciferol (vitamin D3) 25 mcg PO DAILY digoxin 0.25 mg PO DAILY fluticasone furoate 100 mcg/actuation (Arnuity Ellipta) 1 inh inhalation DAILY 30 days losartan 50 mg PO DAILY Oxygen Home Use As directed warfarin 5 mg See Protocol PO DAILY Nursing Note INR: 2.1 in therapeutic range of 2-3 Medications and supplements reviewed No changes in health, diet, medications, or supplements, Denies any signs and symptoms of bleeding or bruising or clotting. 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 Illness/Depression: No Coding Level of Care Code Est Patient Level 1 Diagnoses Current use of anticoagulant therapy Z79.01 Results AMB INR Fingerstick AMB INR Fingerstick 2.1 Last Edit by Tricia Kilgore RN on 03/22/24 09:44 interface delay Assessment & Plan Assessment & Plan (1) Current use of anticoagulant therapy: Code(s): Z79.01 - terminal manager (current) use of anticoagulants Category: Medical
== END 2024-03-22 09:58 | disposition home or self-care (01) ==
LOC: HO.ACS 09:26
PROVIDERS: PCP Internal Medicine; Visit Provider Internal Medicine
DX: Z79.01 Long term (current) use of anticoagulants (principal)

== ENCOUNTER 2024-04-12 09:11 | Outpatient (AMB) | payer MEDICARE, SELFPAY ==
[2024-04-12 09:21] LABS: Prothrombin Time Whole Bld POC 23.6 sec (11.1-13.5)
--- NOTE | 2024-04-12 09:30 | MHC.OFFVISCO ---
Intake Intake Visit Reasons: Anticoagulation Allergies amlodipine Allergy (Intermediate, Verified 04/12/24 09:16) Difficulty Breathing latex [LATEX] Allergy (Intermediate, Verified 04/12/24 09:16) RASH seasonal Allergy (Intermediate, Uncoded 04/12/24 09:16) Sneezing altace Adverse Reaction (Mild, Uncoded 04/12/24 09:16) Cough Medication List - Last Reconciled 04/12/24 by Tricia Kilgore, RN atenolol 50 mg PO BID cholecalciferol (vitamin D3) 25 mcg PO DAILY digoxin 0.25 mg PO DAILY fluticasone furoate 100 mcg/actuation (Arnuity Ellipta) 1 inh inhalation DAILY 30 days losartan 50 mg PO DAILY Oxygen Home Use As directed warfarin 5 mg See Protocol PO DAILY Nursing Note INR: 2.0 in therapeutic range of 2-3 Medications and supplements reviewed No changes in health, diet, medications, or supplements, Denies any signs and symptoms of bleeding or bruising or clotting. Bleeding, bruising, clotting discussed Nutritional guidance given to avoid greens for next 2 days and to focus on foods that can raise the INR like carrots, sweet potatoes and squash. 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 Illness/Depression: No Coding Level of Care Code Est Patient Level 1 Diagnoses Current use of anticoagulant therapy Z79.01 Assessment & Plan Assessment & Plan (1) Current use of anticoagulant therapy: Code(s): Z79.01 - shelter (current) use of anticoagulants Category: Medical
--- OUTSIDE RECORDS SUMMARY | 2024-04-12 09:54 | XMS_ITS ---
Author Organization [facility] Address [address] [place] [address] Care Team Providers Care Cook Fish And Chips Name Role Phone Darrell Sutherland MD Primary Care Provider Jay Talbot Unavailable [phone] ALLERGIES No Known Allergies REASON FOR VISIT [...] bleed (K92.2) Active confirmed Gastrointestina l hemorrhage (96517117) VITAL SIGNS BMI 30.66 kg/m2 05/12/2023 Blood pressure systolic 00 mm Hg 05/12/19 24 Blood pressure diastolic 00 mm Hg 024 Height 60 in 05/12/2023 Temperature 97.7 degrees Fahrenheit 05/12/19 24 Weight 157 lbs 05/12/2023 Encounters Encounter Location Date Provider Diagnosis [facility] [address] [place] [address] 05/12/2023 Jay Guido Lower GI bleed K92.2 [...]
--- OUTSIDE RECORDS SUMMARY | 2024-04-12 09:55 | XMS_ITS | Patient Health Record ---
Author Organization [facility] Address [address] [place] [address] Care Team Providers Care Paper Plate Machine Tender Name Role Phone Darrell Sutherland MD Primary Care Provider Jay Talbot [phone] ALLERGIES No Known Allergies RESULTS Component Value Reference Range Notes Pathology Reviewed date:05/23/2023 06:35:18 PM Interpretation: Performing Lab:[facility], [address] [place] [phone] Notes/Report: REASON FOR REFERRAL No Information MEDICATIONS [...] Active confirmed Diverticul ar disease of colon (574979884) Problem Lower GI bleed (K92.2) Active confirmed Gastrointestina l hemorrhage (28036780) VITAL SIGNS Temperature 97.7 degrees Fahrenheit 05/12/2023 Blood pressure diastolic 00 mm Hg 05/12/2023 Height 60 in 05/12/2023 Blood pressure systolic 00 mm Hg 05/12/2023 Weight 157 lbs 05/12/2023 BMI 30.66 kg/m2 05/12/2023 Encounters Encounter Location Date Provider Diagnosis [facility] [address] [place] [id number] 05/19/2023 Jay Guido Colon polyps K63.5 ; Lower GI bleeding K92.2 ; Diverticulosis of large intestine without perforation or abscess without bleeding K57.30 and Other hemorrhoids K64.8 [facility] [address] [place] [address] 05/12/2023 Jay Lata Lower GI bleed K92.2 [facility] [address] [place] [address] 05/20/2023 Jay Guido ASSESSMENTS Encounter Date Diagnosis [...] Date MEDICARE OF [place] [address] [place] [address] [id number] ROLAN GEORGE Self - patient is the insured [employer] ATTN CLAIMS [address] [place] [address] [id number] ROLAN GEORGE Self - patient is the insured MEDICAL (GENERAL) HISTORY Medical History History ICD Code Choledocholithiasis--removed via ERCP in 02/2010 prior to Lap [facility] Hypertension Denies [place],DM,CVA,renal disease AFIB - Dr. Ryan--Unsuccessful cardiover shanthi 02/2023 Interstitiail lung disease-Dr. 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
--- OUTSIDE RECORDS SUMMARY | 2024-04-12 09:55 | XMS_ITS | Patient Health Record ---
Author Organization [facility] Address [address] [place] [address] Care Team Providers Care Account Manager Education Name Role Phone Darrell Sutherland MD Primary Care Provider Dylon Leary Unavailable [phone] Allergies Allergen (clinical drug ingredient) Drug/Non Drug [...] Status Risk Notes Problem Acquired hallux valgus (87677688) Hallux valgus (acquired), left foot (M20.12) Active confirmed Problem Acquired hallux valgus (36873172) Hallux valgus (acquired), right foot (M20.11) Active confirmed Problem Acquired hammer toe of right foot (9702183863448 105) Other hammer toe(s) (acquired), right foot (M20.41) Active confirmed Problem Acquired hammer toe of left foot (5359780363492 103) Other hammer toe(s) (acquired), left foot (M20.42) Active confirmed Plan Of Treatment Pending Test Test Name Order Date X ray : Foot, right 3V 06/05/2020 Insurance Providers Payer Name Payer Address Payer Phone Subscriber Number Group Number Insured Name Patient Relationship to Insured Coverage Start Date Coverage End Date Medicare National [employer]t S[employer] [address] [place] [address] [id number] Sudha Meek Self - patient is the insured [employer] Blue [employer] [address] [place] [address] [id number] Sudha Meek Self - patient is the insured Medical (General) History Medical History History ICD Code High blood pressure Surgical History Surgery Date(Month/Year) right knee replacement 10/2016
--- OUTSIDE RECORDS SUMMARY | 2024-04-12 09:55 | XMS_ITS ---
Author Organization [facility] Address [address] [place] [address] Care Team Providers Care Conductor Yard Name Role Phone Darrell Sutherland MD Primary Care Provider Unavaila Jay Bailey Unavailable [phone] Encounters Encounter Location Date Provider Diagnosis [facility] [address] [place] [address] 05/20/2023 Jay Guido PLAN OF TREATMENT No Information
--- OUTSIDE RECORDS SUMMARY | 2024-04-12 09:55 | XMS_ITS | Clinical Summary ---
Author Organization [facility] Address [address] [place] [address] Phone Care Team Providers Care Clay Products Machine Operator Name Role Phone Darrell Sutherland MD Primary Care Provider [phone] Encounters Date Type Department Care Team Description 01/16/2024 1:53 PM EST - 01/16/2024 11:59 PM EST Hospital Encounter [facility]ound [address] [place] [phone] Unspecified lump in the right breast, upper outer quadrant Discharge Disposition: Home or Self Care 01/16/2024 1:01 PM EST - 01/16/2024 11:59 PM EST Hospital Encounter [facility] at [address] [phone] Unspecified lump in the right breast, upper outer quadrant Discharge Disposition: Home or Self Care from Last 3 Months Surgical History Surgery Date Site/Laterality Comments US GUIDED BREAST BIOPSY RIGHT 02/21/2014 - 02/20/2015 Ri ght Social History Tobacco Use Types Packs/Day Years Used Date Smoking Tobacco: Never Assessed Comments No Sex and Gender Information Value Date Recorded Sex Assigned at Not on file Legal Sex Female 11:10 PM EST Gender Identity Not on file Sexual Orientation Not on file Obstetrics History Para Term AB IAB SAB Ectopic Multiple Livin g Live Births 3 Last Filed Vital Signs Vital Sign Reading Time Taken Comments Blood Pressure - - Pulse - - Temperature - - Respiratory Rate - - Oxygen Saturation - - Inhaled Oxygen Concentration - - Weight 70.3 kg (155 lb) 01/16/2024 1:16 PM EST Height 152.4 cm (5') 01/16/2024 1:16 PM EST Body Mass Index 30.27 01/16/2024 1:16 PM EST Plan of Treatment Health Maintenance Due Date Last Done Comments Zoster Vaccines (1 of 2) 01/16/2009 11/21/2008 Cholesterol Screening (Lipid Panel) 01/24/2022 Falls Risk Assessment 01/24/2022 Medicare Annual Wellness Visit 01/24/2022 Osteoporosis Screening (Bone Density Screening) 01/24/2022 Social Influencers of Health Screening 01/24/2022 Depression Screening 01/28/2024 01/27/2023 Hypertension/CHF/CAD Annual BMP Blood Test 05/04/2024 05/05/2023, 12/13/2022, 01/28/2022, Additional history exists DTaP,Tdap,and Td Vaccines (2 - Td or Tdap) 01/21/2026 01/22/2016 Pneumococcal Vaccine: 50+ Years Completed 01/25/2022, 01/07/2015, 11/24/2010 RSV Immunization Patients 60+ Years Old Completed 02/22/2023 COVID-19 Vaccine Completed 11/07/2023, , 01/22/2022, Additional history exists Influenza Vaccine Completed 11/23/2023, , 12/07/2021, Additional history exists HIB Vaccines Aged Out No longer eligi ble based on patient's age to complete this topic HPV Vaccines Aged Out No longer eligi ble based on patient's age to complete this topic Hepatitis A Vaccines Aged Out No long er eligible based on patient's age to complete this topic Hepatitis B Vaccines Aged Out No long er eligible based on patient's age to complete this topic IPV Vaccines Aged Out No longer eligi ble based on patient's age to complete this topic MMR Vaccines Aged Out No longer eligi ble based on patient's age to complete this topic Meningococcal ACWY Vaccine Aged Out N o longer eligible based on patient's age to complete this topic Meningococcal B Vacine Aged Out No lo nger eligible based on patient's age to complete this topic RSV Immunization Patients Under 20 months Aged Out No longer eligible based on patient's age to complete this topic Varicella Vaccines Aged Out No longer eligible based on patient's age to complete this topic Procedures Procedure Name Priority Date/Time Associated Diagnosis Comments US BREAST LIMITED RIGHT Routine 01/16/2024 2:48 PM EST Unspecified lump in the right breast, upper outer quadrant MG MAMMO DIGITAL DIAGNOSTIC W YOVANY BILAT Routine 01/16/2024 2:26 PM EST Unspecified lump in the right breast, upper outer quadrant from Last 3 Months Results * US Breast Limited Right (01/16/2024 2:48 PM EST) Anatomical Region Laterality Modality Breast Right Ultrasound 01/16/2024 2:18 PM EST Impressions 01/16/2024 2:21 PM EST 1. Stable mammographic appearance of the breasts. No evidence of malignancy is seen. 2. Incidental simple cyst in the right breast in the area of pain. ? BI-RADS CATEGORY: Mammography: 2 - BENIGN Ultrasound: 2 - BENIGN RECOMMENDATIONS: Screening bilateral mammogram is recommended in 1 year. Clinical management of right breast is recommended. Mammo Location: Mammogram performed at [facility] [place] [address] -------- FINAL REPORT -------- Dictated By: Shaneka Graham Dictated Date: 01/16/2024 14:18 ET Assigned Physician: Shaneka Graham Reviewed and Electronically Signed By: Shaneka Graham Signed Date: 01/16/2024 14:21 ET Workstation ID: [id number] Transcribed By: Self Edit Transcribed Date: 01/16/2024 14:18 ET Narrative 01/16/2024 2:21 PM EST HISTORY: Tender palpable lump right breast approximately one week ago. Patient does not currently feel lump. Residual tenderness lateral breast. COMPARISON: 11/15/22, 11/10/22, 05/20/21, 01/23/20 ?? MAMMOGRAPHY TECHNIQUE: Bilateral digital breast tomosynthesis was performed in the CC and MLO projections. Computer aided detection with My Visual Brief 7.2-H and Easy Pairings 3D 3.1 was employed. Targeted ultrasound of the right breast was also performed, reported separately. BREAST DENSITY: B - There are scattered areas of fibroglandular density. FINDINGS: The parenchymal pattern remains diffusely nodular. No dominant mass is identified. No suspicious microcalcifications or areas of architectural distortion are seen in either breast. A biopsy marker is again seen in the lateral right breast. Vascular calcification is present. The skin is unremarkable. ULTRASOUND Targeted ultrasound of the anterior right breast was performed, in the area of concern expressed by the patient. Aside from a 5 mm simple cyst at 9:00, 4 to 5 cm from the nipple, no sonographic abnormality is identified. us Darrell Sutherland MD IMG US PROCEDURES Final Result * MG Mammo Digital Diagnostic w Yovany bilat (01/16/2024 2:26 PM EST) Anatomical Region Laterality Modality Breast Bilateral Mammography 01/16/2024 2:18 PM EST Impressions 01/16/2024 2:21 PM EST 1. Stable mammographic appearance of the breasts. No evidence of malignancy is seen. 2. Incidental simple cyst in the right breast in the area of pain. ? BI-RADS CATEGORY: Mammography: 2 - BENIGN Ultrasound: 2 - BENIGN RECOMMENDATIONS: Screening bilateral mammogram is recommended in 1 year. Clinical management of right breast is recommended. Mammo Location: Mammogram performed at [facility] [place] [address] -------- FINAL REPORT -------- Dictated By: Shaneka Graham Dictated Date: 01/16/2024 14:18 ET Assigned Physician: Shaneka Graham Reviewed and Electronically Signed By: Shaneka Graham Signed Date: 01/16/2024 14:21 ET Workstation ID: [id number] Transcribed By: Self Edit Transcribed Date: 01/16/2024 14:18 ET Narrative 01/16/2024 2:21 PM EST HISTORY: Tender palpable lump right breast approximately one week ago. Patient does not currently feel lump. Residual tenderness lateral breast. COMPARISON: 11/15/22, 11/10/22, 05/20/21, 01/23/20 ?? MAMMOGRAPHY TECHNIQUE: Bilateral digital breast tomosynthesis was performed in the CC and MLO projections. Computer aided detection with My Visual Brief 7.2-H and Easy Pairings 3D 3.1 was employed. Targeted ultrasound of the right breast was also performed, reported separately. BREAST DENSITY: B - There are scattered areas of fibroglandular density. FINDINGS: The parenchymal pattern remains diffusely nodular. No dominant mass is identified. No suspicious microcalcifications or areas of architectural distortion are seen in either breast. A biopsy marker is again seen in the lateral right breast. Vascular calcification is present. The skin is unremarkable. ULTRASOUND Targeted ultrasound of the anterior right breast was performed, in the area of concern expressed by the patient. Aside from a 5 mm simple cyst at 9:00, 4 to 5 cm from the nipple, no sonographic abnormality is identified. us Darrell Sutherland MD IMG BI PROCEDURES Final Result from Last 3 Months Insurance MEDICARE [facility] Care Teams Clay Products Machine Operator Relationship Specialty Start Date End Date Darrell Sutherland MD [address] [place] [id number] PCP - General Internal Medicine 12/12/23
--- OUTSIDE RECORDS SUMMARY | 2024-04-12 09:55 | XMS_ITS ---
Author Organization [facility] Address [address] [place] [address] Care Team Providers Care Openstack Developer Name Role Phone Darrell Sutherland MD Primary Care Provider Unavaila ble Jay Guido Unavailable [phone] REASON FOR VISIT lower GI bleed PROBLEMS Problem Type ICD Code Onset Dates Problem Status W/U Status Risk SNOMED Code Notes Problem Diverticulosis of large intestine without perforation or abscess without bleeding (K57.30) Active confirmed Diverticul ar disease of colon (543097239) Encounters Encounter Location Date Provider Diagnosis [facility] Outpatient [address] [place] [phone] 05/19/2023 Jay Guido Colon polyps K63.5 ; [...]
== END 2024-04-12 09:32 | disposition home or self-care (01) ==
LOC: HO.ACS 09:11
PROVIDERS: PCP Internal Medicine; Visit Provider Internal Medicine
DX: Z79.01 Long term (current) use of anticoagulants (principal)

== ENCOUNTER → 2024-04-12 09:11 | Outpatient (BNVA) | payer MEDICARE, SELFPAY | PROVIDERS: PCP Internal Medicine; Visit Provider Internal Medicine | DX: I48.19 Other persistent atrial fibrillation (principal); I26.99 Other pulmonary embolism without acute cor pulmonale; Z79.01 Long term (current) use of anticoagulants; Z51.81 Encounter for therapeutic drug level monitoring | CPT/HCPCS: 85610; 99211 ==

== ENCOUNTER 2024-05-03 12:46 | Outpatient (AMB) | payer MEDICARE, SELFPAY ==
[2024-05-03 13:09] VITALS: BP 156/88; PULSE 81; O2SAT 91; BMI 31.0
--- NOTE | 2024-05-03 13:09 | A.OFFVIS_ITS ---
Vital Signs 05/03/24 13:09 Height 5 ft Weight 158 lb 11.725 oz BMI 31.0 BP 156/88 H Blood Pressure Location Rt brachial Position Sitting Pulse 81 Pulse Source Pulse Oximeter Pulse Oximetry (%) 91 L Oxygen Delivery Method Room Air Intake Visit Reasons: ILD Allergies amlodipine Allergy (Intermediate, Verified 05/03/24 13:36) Difficulty Breathing latex [LATEX] Allergy (Intermediate, Verified 05/03/24 13:36) RASH seasonal Allergy (Intermediate, Uncoded 05/03/24 13:36) Sneezing altace Adverse Reaction (Mild, Uncoded 05/03/24 13:36) Cough HPI Comments Details: The patient is a 83 year woman who was referred to Pulmonary to evaluate abnormal CT scan of the chest. The patient states that she has been feeling otherwise well. Denies any significant shortness of breath or cough or any chest discomfort. However, she does state that she lives in a very small [facility] and she does not do a lot of walking. She went to see her primary care doctor who checked her pulse oximeter and was noted to be low. Therefore she had additional imaging studies including a CT scan of the chest that was found to be abnormal. I did personally viewed the CT scan demonstrating areas of mosaic pattern is of ground-glass opacities and also some reticular changes primarily in the lingula. The patient denies any significant exposure to any fumes or toxins. Denies any hobbies with any exposures to organic or inorganic dusts. She denies any exposure to any farm animals or farm or hay. She does not have any pets. She denies any mold in the household. The interesting part of the story is that the patient has a identical twin who lives in [place]. At the same time that she was undergoing a CT scan of the chest for further evaluation of underlying interstitial lung disease the patient is identical sister was also going to the same process. She is also going to see a specialist. The details of that evaluation are not available at this time. She denies any significant rashes or joint pains or muscle discomfort or muscle weakness. During the office visit we did go for 6 minute walk test. The patient did desaturate down to 88%. She had a dyspnea score of 3/10 and did go up to 4-10 when she was a little more hypoxic. We did rest for a minute and her oxygen improved to the low 90s. The patient did qualify for oxygen but she does not 1 at this time. 12/03/2021 the patient is here for a pulmonary follow-up visit. She is here with her sister. She did take the prednisone. The prednisone made her feel better although did not really help her breathing symptoms. She really denies any significant dyspnea on exertion. She walks regularly and also uses a recumbent bike and denies any significant shortness of breath. We did review her blood work which was relatively negative except for a positive RD with the very low titer of 01:40. There is no real history of connective tissue conditions in the family. There is a history pulmonary fibrosis. Both her mother and also her sister that is being evaluated at this time. Her last CT scan did demonstrate reticular changes in addition to ground-glass opacities. 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 During the visit the patient did have evidence of bilateral crackles and her 6 minutes walk test she desaturated down to about 86%. Her dyspnea score was 5/10 during. based on that explained to the patient that she needs to start oxygen supplementation with activity. She is a bit reluctant but she is willing to try for now. Will plan to repeat the CT scan and then follow up with a painful to see you if there is no significant progression of the pulmonary fibrosis. With talk about considering all to have a biopsy although patient is at this point reluctant to do so. Would not be unreasonable to keep the patient on small dose of prednisone for that reason. Indeed she has worsening fibrotic changes using wanted fibrotic agent would also be an option. 01/12/2022 the patient is here with her daughter for pulmonary follow-up visit. She has been on the 10 mg of prednisone. She is concerned because of the adverse effects of the medication and affecting her sleep. We did keep her on the prednisone in view of the elevated RD and also the elevation in the eosinophils which may manifest with an interstitial process. Specially since she did have some areas of ground-glass opacities suggesting pneumonitis. The patient however denied a see any significant improvement or difference. She did have a repeat CT scan of the chest and we personally reviewed that together. We also compared to her last CT scan that she had several months back. Appears to be some interval increase in the degree of reticulations and pulmonary fibrosis primarily on the left lung more than the right. She still has areas of ground-glass opacities in addition to mosaic pattern. No clear etiology for the interstitial lung disease based on the blood work. The patient is not interested in pursuing any invasive diagnostic interventions such as biopsies. Clinically the patient is doing well and she denies any respiratory symptoms at all. All this came about because she was noted to have an abnormal CT scan when she was referred to Pulmonary. She did have 2 6 minutes walk test both that were consistent with hypoxia qualify for oxygen. The patient also had an overnight oximetry demonstrating significant hypoxia while sleeping at least for close to 3 hours for she spent below 88%. Therefore the patient needs to continue using the oxygen with activity and also at nighttime while sleeping. She is adamant that she has wants to get an [employer] device portable oxygen concentrator. Will go ahead and fill out some paperwork in order for her to receive that. the patient is wondering if she is going to have to stay on the oxygen. I did recommend that she continue to use it for now and we will retest her once she returns in . Patient is going to be weaning off the prednisone at this time. And the patient is not interested in any antifibrotic therapy at this time. Based on her clinical presentation during the next visit we can discuss further anti fibrotic therapy if she would like. Patient does have a lot of questions about her condition and the fact that she is fairly asymptomatic. The fact that her 20 sister also found to have some interstitial lung changes which she does not require oxygen and she is questioning the whole process. I can only tolerate that we have tested her multiple times and all times have demonstrated evidence of hypoxia even on the day of presentation the patient is stands that using the oxygen will help her with her organ function including heart brain and other end-organ functions. Her her daughter was wondering about a diagnosis next Plain to her for now based on the fact that there is some progression the possibility of idiopathic pulmonary fibrosis needs to be in differential. Explained to the patient and the daughter that with the idiopathic pulmonary fibrosis the fibrosis is progressive. Therefore, will continue to monitor for any progression of disease. 05/06/2022 the patient is here for a pulmonary preoperative evaluation. Overall the patient has been doing about the same from a respiratory status. She continues use the oxygen with activity and sleep. She denies any worsening shortness breath or any new respiratory complaints. She denies any evidence of any active connective tissue disease. She has been off all corticosteroid therapy. She was found to have a renal mass. Concerning for malignancy. Now after being evaluated by Urology see felt that she requires full nephrectomy. Because of her underlying respiratory disease stable also recommending ablation. We did review her spirometry also her PFTs from last year in addition to her 6 minutes walk test. Based on this the patient does have increased risk for perioperative pulmonary complications. However, she is medically optimize any condition is not worsening. Therefore, I do believe that she will tolerate general anesthesia and will tolerate her surgery. She will have increased risks including further hypoxia in addition to risk for pneumonia and atelectasis. Currently she is medically optimized from a pulmonary standpoint. She does not need any bronchodilator therapy. She is using her oxygen effectively. After she recovers from her surgery will reassess her underlying interstitial lung disease with a repeat CT scan and PFTs. At that point we can decide if there is any evidence of any progression to consider small dose steroids versus antifibrotic therapies. 09/21/2022 the patient is here for pulmonary follow-up visit. She recovering well from her surgery. She did have increased shortness of breath after surgery. She did follow-up in the office and was reassuring that everything was okay. The patient has been using the oxygen a little bit more often specially after surgery. she was having issues with high blood pressure she was started on a new blood pressure medication. After the medication she noticed that oxygen actually dropped to 84% which became very concerning for her. Therefore she stopped that medicine which was amlodipine. Seems that her blood pressure is better at this time. The patient also underwent a CT scan of the chest which I personally reviewed with her and her daughter. It appears some slight increase in the reticular changes primarily in the left side. There is also evidence of ground-glass opacities suggestion a component of inflammation or likely subtle scarring. Patient does have a history of slightly elevated connective tissue disease laboratory suggesting the possibility of connective tissue disease related pulmonary fibrosis. She had been on prednisone before and she did tolerated fairly well. She is willing to try smaller dose to see if she can tolerated and try to minimize progression of the scarring. Another option is to consider antifibrotic agent specially with slight worsening of disease. She is going to consider this as well. Will go ahead and start her on therapy with prednisone 10 mg daily and she is going to taper down to the lowest most effective dose which I hope is going to be 10 mg every other day. She is going to monitor closely her oxygen supplementation. Also to note that she does have a twin with very similar condition and she is also now on a small dose of prednisone. She is reassured I am also reassured that the amount of progression appears to be fairly minimal in a year's time. We did talk about pulmonary rehabilitation. The patient would really benefit from rehabilitation at this time specially now that she is recovering from her renal cell cancer surgery. 12/23/2022 the patient is here for a pulmonary follow-up visit. Apparently she was hospitalized earlier this month after developing significant tachycardia while at pulmonary rehab. She was referred down to the [facility] ER where she was diagnosed with atrial fibrillation and also had a CTA demonstrating pulmonary emboli. Therefore the patient was admitted to the hospital. She was evaluated by Cardiology. She has been on Eliquis since that hospitalizations. Her oxygen requirements are about the same. I did review her CT scan of the chest. She does have significant mosaic pattern a little bit more than before. In addition to that the pulmonary emboli noted right more than left. The patient also has a nodular density measuring around a cm in the right upper lobe area. The patient is also scheduled to undergo and MRI coming up for history of renal cancer. She continues on the prednisone every other day. At this point will continue with that does specially since she is concerned about the potential adverse effects of prednisone. she continues in atrial fibrillation but she is rate controlled. At this point the patient will continue with the Eliquis and her respiratory therapy. The patient will undergo a repeat CTA in 3 months' time to assess the resolution of the clots in addition to that to follow-up with the 1 cm subsolid nodular density in the right upper lobe. 04/22/2023 the patient is here for a pulmonary follow-up visit. The patient overall has been feeling well. She did stop the prednisone as she was concerned about the adverse effects. Still having dyspnea on exertion [id number] severity. She does use her oxygen with sleep and also with activity. She has a POC. She was participating in the pulmonary rehabilitation but then started developing issues with atrial fibrillation and also shoulder issues. She is currently working with orthopedic surgery and Cardiology. At this point though she is doing better and she is able to go back to pulmonary rehabilitation at this time. She is still getting physical therapy at home for her shoulder so therefore she would have to wait until that is completed. The patient did have a CT scan of the chest that I personally reviewed with her. The patient does have evidence of mosaic pattern suggesting air trapping. Appears to have gotten slightly more pronounced. Maybe the fact that she has no longer on prednisone. The interstitial lung disease looks about the same. Therefore we can hold off on the idea of Ofev. The patient is agreeable to starting a inhaled corticosteroid. The patient is going to be having an MRI of the abdomen to re-evaluate her history of renal cancer. We were monitoring 1 pulmonary nodule that was in the right hemithorax. However, it does not appear to be present and her current CT scan which is reassuring. Otherwise the patient is doing well. Will plan to follow-up in 6 months. 07/26/2023 the patient is here for sick visit. Apparently she had been having worsening respiratory symptoms cough chest congestion. She had gotten a chest x-ray that was abnormal. She was placed on antibiotics which is cephalosporin. She had a hard time tolerating the medicine. She took it. Affected her Coumadin INR. The patient did have a CT scan of the chest done. I personally reviewed the images. Patient does have masslike consolidation bilaterally. Some areas of ground-glass opacities and airspace disease. Also nodular densities. We did compared to the CT scan she had back in 03/12/2023 where she had the ground-glass opacities and interstitial lung disease but no evidence of any nodular densities. Also the patient did have an MRI the kidney and everything is fine her report. I did review the masslike consolidations with the patient. Appears to be more consistent with an infectious process. Likely walking pneumonia could be a viral syndrome that may have been superimposed on bacterial infection such as staph aureus. The antibiotics did help. Will go ahead and give her a 2nd course of antibiotics with doxycycline. I also send a message to the Coumadin clinic to make sure they monitor her INR. The patient already scheduled to have a repeat CT scan September 14 which I believe is reasonable. We did contemplate a PET scan but at this point based on her respiratory illness the PET scan would also sharp activity in infectious process therefore making it less accurate. Therefore the CT with contrast would be a very good study for follow-up. The patient understands that if she has any residual nodular densities of any concern will order a PET scan at that point. If she develops any worsening symptoms she should also call for an earlier assessment. The patient also will complete the antibiotics and after that she can go back to pulmonary rehabilitation as it is important for her to continue to exercise regularly. 09/19/2023 the patient is here for a pulmonary follow-up visit. She is feeling a lot better. Oxygenation is also better. She does have her oxygen although she has been able to be off it for periods of time which is reassuring. She did undergo her CT scan of the chest that has not been officially read. However, we did review the CT scan together and then also compared to her previous CT scans. It appears that the masslike consolidations in airspace disease have significantly subsided. She did complete a course of antibiotics which is reassuring. Indeed no evidence of any recurrence. No evidence of any pulmonary nodules that are concerning. As far as her interstitial lung disease looks about the same although some areas where she had most of the airspace disease it seemed to have scarred up a little bit as far as the organization in the healing process. Therefore, I do not believe that the changes are due to is progression of her interstitial lung disease but more the recent acute illness. No need for PET scan at this time. The patient is going to continue her respiratory therapy as prescribed she is going to continue her oxygen with acti vity and also sleep. She will follow-up in 6-8 months. If the patient develops any worsening symptoms she will call for an earlier assessment. 05/03/2024 the patient is here for a pulmonary follow-up visit. Overall the patient is doing well. She continues use the oxygen with activity and sleep with good effect. She has been off the prednisone she has been doing okay. Her twin sister is taking prednisone 5 mg and she is wondering about that. However, after talking to her medical provider she opted on not going on prednisone. Specially with a history of cancer. She does have an MRI scheduled soon to follow-up with the renal cell carcinoma. In the meantime we looked at her old CT scans. We could see the pulmonary fibrosis. Clinically the patient does not appear to have any worsening disease. Although I explained to her that if we see any worsening scarring we can always consider Ofev as an option. I did personally review the CT scan from - and we see some slight prog ression of disease. So we will keep that in mind as we wait for the CAT scan over the summer to see there is any progression. When she returns in the fall also have her undergo pulmonary function studies to see if there is any changes in her pulmonary capacity. Otherwise patient is doing well she continue with the current therapy and will follow-up in the Fall. [facility] Medical History Pulmonary nodules Pulmonary embolism History of kidney disease Pulmonary nodule Renal cell cancer Renal cell carcinoma of right kidney Chronic respiratory failure with hypoxia Pneumonitis ILD (interstitial lung disease) Surgical History History of right knee surgery (~10/2016) History of History of cholecystectomy Social History Household Members: None [facility] Do you presently have visiting nurse or other home services: No Alcohol intake: former Patient Tobacco Use Status: Former Tobacco user Tobacco use type: Cigarette Years Smoked: 5 Advance Directives Date on File: 12/01/22 service: No Review of Systems Const Denies chills, Denies fatigue, Denies fever(s), Denies frequent falls, Denies weakness, Denies weight gain and Denies weight loss ENT Denies dizziness Card Denies chest pain, Denies leg edema, Denies lightheadedness, Denies pa lpitations, Denies dyspnea, Reports dyspnea on exertion, Denies orthopnea and Denies other (loss of consciousness) Resp Denies cough, Denies dyspnea and Reports dyspnea on exertion GI Denies hematochezia and Denies change in stool character Musc Denies abnormal gait, Denies muscle weakness, Denies numbness, Denies radiating pain into limb and Denies tingling Neuro Denies abnormal gait, Denies dizziness, Denies frequent falls, Denies numbness, Denies tingling and Denies weakness Endo Denies fatigue and Denies palpitations Physical Exam Vital Signs: Last Vital Signs Pulse 81 05/03/24 13:09 BP 156/88 H 05/03/24 13:09 Pulse Ox 91 L 05/03/24 13:09 Oxygen Delivery Method Room Air 05/03/24 13:09 BMI result Body Mass Index 31.0 Const General: comfortable HEENT Head: Yes normal to inspection Neck Neck: Yes supple Chest Chest palpation & inspection: normal inspection of the chest Resp Effort & Inspection: normal respiratory effort Auscultation: crackles, no rhonchi and diminished lung sounds Cardio Rate: regular rate and tachycardic Rhythm: abnormal rhythm Heart sounds: S1 normal heart sound present and S2 normal heart sound present GI Auscultation: normal bowel sounds General: Yes no CVA tenderness Back/Spine/Pelvis Back: no CVA tenderness Skin General skin exam: no rashes or lesions noted Extrem General: Yes no clubbing, cyanosis or edema Assessment & Plan Assessment & Plan (1) Pneumonitis: Code(s): J18.9 - Pneumonia, unspecified organism Category: Medical (2) ILD (interstitial lung disease): Code(s): J84.9 - Interstitial pulmonary disease, unspecified Category: Medical (3) Chronic respiratory failure with hypoxia: Code(s): J96.11 - Chronic respiratory failure with hypoxia Category: Medical (4) Pulmonary embolism: Code(s): I26.99 - Other pulmonary embolism without acute cor pulmonale Category: Medical Qualifiers: Pulmonary embolism type: multiple subsegmental (without acute cor pulmonale) Qualified Code(s): I26.94 - Multiple subsegmental pulmonary emboli without acute cor pulmonale (5) Atrial fibrillation: Code(s): I48.91 - Unspecified atrial fibrillation Category: Medical Qualifiers: Atrial fibrillation type: persistent (not longstanding) Qualified Code(s): I48.19 - Other persistent atrial fibrillation (6) Renal cell cancer: Comment: RUL pulmonary nodule resolved Code(s): C64.9 - Malignant neoplasm of unspecified kidney, except renal pelvis Category: Medical Qualifiers: Laterality: unspecified laterality Qualified Code(s): C64.9 - Malignant neoplasm of unspecified kidney, except renal pelvis (7) Pulmonary nodules: Code(s): R91.8 - Other nonspecific abnormal finding of lung field Category: Medical (8) Lung consolidation: Comment: resolved Code(s): J18.1 - Lobar pneumonia, unspecified organism Category: Medical Plan Continue oxygen 2L pulse/cont with activity and 2L with sleep. continue Eliquis, likely life long CT chest 08/2024 PFTs in 6 months consider OFEV if any evidence of progression of the ILD F/U 6-8 months Orders: Orders CT chest wo IV con 08/21/24 R91.8 - Other nonspecific abnormal finding of lung field PFT pulmonary function test 6 Months J84.9 - Interstitial pulmonary disease, unspecified Coding Level of Care Code Est Pt Level 4 (19883) Complex EM visit Add On G2211 Diagnoses Pneumonitis J18.9 ILD (interstitial lung disease) J84.9 Chronic respiratory failure with hypoxia J96.11 Multiple subsegmental pulmonary emboli without acute cor pulmonale I26.94 Pulmonary embolism type: multiple subsegmental (without acute cor pulmonale) Persistent atrial fibrillation I48.19 Atrial fibrillation type: persistent (not longstanding) Renal cell carcinoma, unspecified laterality C64.9 Laterality: unspecified laterality Pulmonary nodules R91.8 Lung consolidation J18.1 Time Spent (min) 17
--- OUTSIDE RECORDS SUMMARY | 2024-05-03 16:05 | XMS_ITS ---
Author Organization [facility] Address [address] [place] [address] Care Team Providers Care Market President Name Role Phone Darrell Sutherland MD Primary Care Provider Jay Talbot [phone] Encounters Encounter Location Date Provider Diagnosis [facility] [address] [place] [address] 05/20/2023 Jay Guido Plan Of Treatment No Information Progress Notes * ROLAN GEORGE EDOB:[birth year] (82 yo F)Acc No.[id number]:05/20/2023 Patient:?ROLAN GEORGE :1940???Age:82 Y???Sex:Female Address:[address] [place] [address] [place] [address] * true * Date:? Generated for Naila arrington/Daniela/eTransmitting on:?05/03/2024 04:05 PM EDT
--- OUTSIDE RECORDS SUMMARY | 2024-05-03 16:05 | XMS_ITS | Patient Health Record ---
Author Organization [facility] Address [address] [place] [address] Care Team Providers Care Director University Name Role Phone Darrell Sutherland MD Primary Care Provider Dylon Leary Unavailable [phone] Allergies Allergen (clinical drug ingredient) Drug/Non Drug [...] Status Risk Notes Problem Acquired hallux valgus (35160820) Hallux valgus (acquired), left foot (M20.12) Active confirmed Problem Acquired hallux valgus (91630613) Hallux valgus (acquired), right foot (M20.11) Active confirmed Problem Acquired hammer toe of right foot (2327719437189 105) Other hammer toe(s) (acquired), right foot (M20.41) Active confirmed Problem Acquired hammer toe of left foot (4706902068421 103) Other hammer toe(s) (acquired), left foot (M20.42) Active confirmed Plan Of Treatment Pending Test Test Name Order Date X ray : Foot, right 3V 06/05/2020 Insurance Providers Payer Name Payer Address Payer Phone Subscriber Number Group Number Insured Name Patient Relationship to Insured Coverage Start Date Coverage End Date Medicare National Govt Svcs Inc [address] [place] [address] [id number] Sudha Meek Self - patient is the insured [employer] Blue Shield [address] [place] [address] [id number] Sudha Meek Self - patient is the insured Medical (General) History Medical History History ICD Code High blood pressure Surgical History Surgery Date(Month/Year) right knee replacement 10/2016
--- OUTSIDE RECORDS SUMMARY | 2024-05-03 16:05 | XMS_ITS ---
Author Organization [facility] Address [address] [place] [address] Care Team Providers Care Band Lining Bander Name Role Phone Darrell Sutherland MD Primary Care Provider Unavaila Jay Bailey Unavailable [phone] REASON FOR VISIT lower GI bleed Problems Problem Type SNOMED Code ICD Code Onset Dates Problem Status W/U Status Risk Notes Problem Diverticular disease of colon (767383008) Diverticulosis of large intestine without perforation or abscess without bleeding (K57.30) Active confirmed Encounters Encounter Location Date Provider Diagnosis [facility] [place] [address] [place] [phone] 05/19/2023 Jay Guido Colon polyps K63.5 ; [...] ROLAN GEORGE EDOB:[birth year] (83 yo F)Acc No.[id number]:05/19/2023 COLON WITH MAC Patient:?ROLAN GEORGE Provider:?Jay Guido MD :1940???Age:82 Y???Sex:Female D ate:05/19/2023 Address:[address] [place] [address] [place] Pcp:Darrell Sutherland MD Subjective: * Chief Complaints: * ???1. lower GI bleed. * Medical History:? Objective: * Vitals:? Assessment: * Assessment: 1.?Colon polyps - K63.5 (Tiffanie wright)???2.?Lower GI bleeding - K92.2???3.?Diverticulosis of large intestine without perforation or abscess without bleeding - K57.30???4.?Other hemorrhoids - K64.8??? Plan: * Treatment: * Procedure Codes:?32997 LESIO N REMOVAL COLONOSCOPY, 0529F INTRVL 3+YRS PTS CLNSCP DOCD, 0528F RCMND FLW-UP 10 YRS DOCD, Modifiers: 1P * * The named appointment provid er may or may not be the originator of this progress note, and it is not deemed complete until electronically signed by the appointment provider. Sign off status: Pending * Provider:?Jay Guido MD Date:? 024 Generated for Naila arrington/Daniela/eTransmitting on:?05/03/2024 04:04 PM EDT
--- OUTSIDE RECORDS SUMMARY | 2024-05-03 16:05 | XMS_ITS | Clinical Summary ---
Author Organization [facility] Address [address] [place] [address] Phone Care Team Providers Care Hand Ii Cutter Name Role Phone Darrell Sutherland MD Primary Care Provider [phone] Surgical History Surgery Date Site/Laterality Comments US GUIDED BREAST BIOPSY RIGHT 02/21/2014 - 02/20/2015 Ri ght Social History Tobacco Use Types Packs/Day Years Used Date Smoking Tobacco: Never Assessed Comments No Sex and Gender Information Value Date Recorded Sex Assigned at Female 04/17/2024 9:36 AM EST Legal Sex Female 11:10 PM EST Gender Identity Female 04/17/2024 9:36 AM EST Sexual Orientation Not on file Obstetrics History [...] 01/16/2024 1:16 PM EST Plan of Treatment Upcoming Encounters Date Type Department Care Team (Late st Contact Info) Description 01/21/2025 1:00 PM EST [facility]ointment [facility] [address] [address] Health Maintenance Due Date Last Done Comments [...] on patient's age to complete this topic Insurance [facility] [place] [address] MEDICARE [facility] Care Teams Hand Ii Cutter Relationship Specialty Start Date End Date Darrell Sutherland MD [address] [place] [address] PCP - General Internal Medicine 12/12/23
--- OUTSIDE RECORDS SUMMARY | 2024-05-03 16:05 | XMS_ITS | Patient Health Record ---
Author Organization [facility] Address [address] [place] [address] Care Team Providers Care Bottle Blowing Machine Tender Name Role Phone Koko ESTRELLA, Darrell Primary Care Provider Jay Talbot Unavailable [phone] Allergies No Known Allergies Results Component Value Reference Range Notes Pathology Reviewed date:05/23/2023 06:35:18 PM Interpretation: Performing Lab:[facility], [address] [place] [phone] Notes/Report: Name: Sudha George Age/Sex: 82/F : 1940 Unit#: [id number] Attend Dr: Jay Guido Re05/19/23 Status : [facility] Location: [facility]AM Disch: SPEC : [id number] RECD : 05/20/23-37 STATUS: SANCHEZ OLVERA NUM: [id number] SANDOVAL: 05/19/23-[address] [facility] [address]: Jay Guido ENTERED: 05/20/23-08 47 SP TYPE: Surgical OTHR DR: Darrell Sutherland MD ORDERED: HE Stain/3, Gross Micro L4 Diagnosis Colon, at 20 cm, ibrahima yp: Tubular adenoma; negative for high-grade dysplasia and carcinoma. Clinical History Pre-Op Dx: Bleed Post-Op Dx: Colon po lyp, diverticulosis, hemorrhoids Microscopic Description Microscopic sections reviewed. Material Received Polyp at 20 Gross Description Received in formalin labeled ?polyp at 20? is a 0.4 cm flores-brown papular tissue fragment, submitted in toto in a cassette labeled A. CEDS Copies To: Darrell Sutherland MD [address] [facility]. [place], [place] [id number] Gu[facility] [address] [place] [address] [address] [place] [address] Signed (si gnature on file) Tricia Sheriff 05/23/23 1151 END OF REPORT Reason For Referral No Information Medications Medication SIG (Take, Route, Frequency, Duration) Notes Start Date End Date Status Digoxin 250 MCG Oral for 30 Ac tive Losartan Potassium 50 MG Oral for 30 Active Atenolol 50 MG 1 tablet Orally Once a day Active Lovenox Active Vitamin D Active Problems Problem Type SNOMED Code ICD Code Onset Dates Problem Status W/U Status Risk Notes Problem Diverticular disease of colon (850116557) Diverticulosis of large intestine without perforation or abscess without bleeding (K57.30) Active confirmed Problem Gastrointestinal hemorrhage (88972808) Lower GI bleed (K92.2) Active confirmed Vital Signs Temperature 97.7 degrees Fahrenheit 05/12/2023 Blood pressure diastolic 00 mm Hg 05/12/2023 Height 60 in 05/12/2023 Blood pressure systolic 00 mm Hg 05/12/2023 Weight 157 lbs 05/12/2023 BMI 30.66 kg/m2 05/12/2023 Encounters Encounter Location Date Provider Diagnosis [facility] [place] Out[place] [address] [place] [phone] 05/19/2023 Jay Guido Colon polyps K63.5 ; Lower GI bleeding K92.2 ; Diverticulosis of large intestine without perforation or abscess without bleeding K57.30 and Other hemorrhoids K64.8 [facility] [address] [place] [address] 05/12/2023 Jay Guido Lower GI bleed K92.2 [facility] [address] [place] [phone] 05/20/2023 Jay Guido Assessments Encounter Date Diagnosis (ICD Code) Assessment [...] hemoglobin, her need to go on chronic anticoagulation , her last colonoscopy being just about 10 [...] to keep you advised of her progress. 05/19/2023 Diverticulosis of large intestine without perforation or abscess without bleeding (ICD-10 - K57.30) 05/19/2023 Other hemorrhoids (ICD-10 - K64.8) Plan Of Treatment Future Test Test Name Order Date COLONOSCOPY 02/27/2013 COLONOSCOPY 05/12/2023 Insurance Providers Payer Name Payer Address Payer Phone Subscriber Number Group Number Insured Name Patient Relationship to Insured Coverage Start Date Coverage End Date MEDICARE OF [place] [address] [place] [address] [phone] [id number] SUDHA GEORGE Self - patient is the insured [employer] ATT[employer] CLAIMS [address] [place] [address] [id number] SUDHA GEORGE Self - patient is the insured Medical (General) History Medical History History ICD Code Choledocholithiasis--removed via ERCP in 02/2010 prior to Lap [facility] Hypertension Denies TN,DM,CVA,renal disease AFIB - Dr. 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
--- OUTSIDE RECORDS SUMMARY | 2024-05-03 16:05 | XMS_ITS ---
Author Organization [facility] Address [address] [place] [address] Care Team Providers Care Propeller Driven Airplane Mechanic Name Role Phone Darrell Sutherland MD Primary Care Provider Jay Talbot Unavailable [phone] Allergies No Known Allergies REASON FOR VISIT [...] W/U Status Risk Notes Problem Gastrointestinal hemorrhage (99143123) Lower GI bleed (K92.2) Active confirmed Vital Signs Temperature 97.7 degrees Fahrenheit 05/12/19 24 Blood pressure systolic 00 mm Hg 05/12/19 24 Blood pressure diastolic 00 mm Hg 024 Height 60 in 05/12/2023 Weight 157 lbs 05/12/2023 BMI 30.66 kg/m2 05/12/2023 Encounters Encounter Location Date Provider Diagnosis [facility] [address] [place] [address] 05/12/2023 Jay Guido Lower GI bleed K92.2 [...] SUDHA GEORGE EDOB:[birth year] (82 yo F)Acc No.[id number]:05/12/2023 Progress Notes Patient:SUDHA LOUISE Provider:?Jay Guido MD :1940???Age:82 Y???Sex:Female D ate:05/12/2023 Address:[address] [place] [address] [place] Pcp:Darrell Sutherland MD Subjective: * Chief Complaints: * ???Rectal bleeding * HPI: ???incontinence:? I saw Sudha in consultation today in regard to further evaluation of her recent rectal bleeding and anemia. ?I last saw Sudha in 2013 at which [...] hemoglobin of 13.9 in December of 2022. ?As you know, she was diagnosed with atrial [...] is not using any aspirin or NSAIDs. ?She otherwise feels well. She enjoys a good appetite, without any significant heartburn or dysphagia. She denies abdominal pain, jaundice, nor unintentional weight loss. She denies any known family history of colon cancer. * ROS:?General/Constitutional:?Change in appetite?denies.?Chills?denies.?Fatigue?denies.?Ophthalmologic:?Patient denies? Negative..?ENT:?Patient denies?Negative..?Respiratory:?Patient denies?No coughing/hemoptysis..?Cardiovascular:?Patient denies? No chest pain/orthopnea..?Gastrointestinal:?Comments?See HPI for details.?Genitourinary:?Patient denies? No dysuria/hematuria..?Musculoskeletal:?Patient denies? No specific arthralgias/myalgias..?Skin:?Patient denies?No rash/pruritus..?Neurologic:?Patient denies? No headaches/seizures..?Psychiatric:?Patient denies?Negative..? * Medical History:? * Surgical History:?Knee surge ry Cholecystectomy 2011 * Hospitalization/Major Diagno stic Procedure:?No Hospitalization History. * Family History:?Father: dece ased, diagnosed with HTN (hypertension), Heart disease.?Mother: , diagnosed with HTN (hypertension).? No colorectal cancer. * Social History:?Tobacco Use:?Tobacco Use/Smoking?Patient is a?nonsmoker.?Drugs/Alcohol:?Alcohol Screen?Did you have a drink containing alcohol in the past year??Yes,?How often did you have 6 or more drinks on one occasion in the past year??Never (0 point),?How many drinks did you have on a typical day when you were drinking in the past year??1 or 2 drinks (0 point),?How often did you have a drink containing alcohol in the past year??Monthly or less (1 point),?Points?1,?Interpretation?Negative.?Miscellaneous:?Marital status: . 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 ???Nonsmoker; no sig alcohol. * Medications:?TakingVitamin D Lovenox Atenolol 50 MG Tablet 1 [...] reviewed and reconciled with the patient * Allergies:?N.K.D.A.yes[Aller gies Verified] Objective: * Vitals:?Wt: 157 lbs, Ht: 60 in, BMI:30.66 Index, BP: 00/00 mm Hg, Temp: 97.7. * Examination: ???General Examination: ?GENERAL APPEARANCE:?pleasant, well nourished, well developed, in no acute distress.?EYES:?sclera non-icteric.?ORAL CAVITY:?mucosa moist.?NECK/THYROID:?no cervical lymphadenopathy, neck supple.?SKIN:?nonjaundiced, no spider angiomata..?HEART:?S1, S2 normal.?LUNGS:?clear to auscultation bilaterally.?ABDOMEN:?normal bowel sounds, no guarding or rigidity, no hepatosplenomegaly, no masses palpable, soft, nontender, nondistended..?EXTREMITIES:?no edema.?NEUROLOGIC:?alert and oriented.? Assessment: * Assessment: 1.?Lower GI bleed - K92.2 (P rimary)? Overall, Sudha appears quite well. She appears [...] if you have recurrent bleeding.?? * Procedure Codes:?1036F TOBAC CO NON-QGOMW9624 BP SCR NOT PRFRM REC REASON NOS * Preventive Medicine:? ??Counseling:?Care goal follow-up plan:?Above Normal BMI Follow-up?Giving encouragement to exercise,?BMI management provided?Yes.? ??Urinary Incontinence:?Urinary Incontinence?Assessment:?Absent,?Plan of care documented:?No, reason not specified.? * Follow Up:?prn * * Sign off status: Completed true * Provider:?Jay Guido MD Date:? 024 Generated for Naila arrington/Daniela/eTransmitting on:?05/03/2024 04:04 PM EDT History and Physical Notes * HPI [...]
== END 2024-05-03 13:32 | disposition home or self-care (01) ==
LOC: HO.HPS 12:46
PROVIDERS: PCP Internal Medicine; Visit Provider Hospitalist
DX: J18.9 Pneumonia, unspecified organism (principal); J96.11 Chronic respiratory failure with hypoxia; I26.94 Multiple subsegmental thrombotic pulmonary emboli without acute cor pulmonale; I48.19 Other persistent atrial fibrillation; C64.9 Malignant neoplasm of unspecified kidney, except renal pelvis; R91.8 Other nonspecific abnormal finding of lung field; J18.1 Lobar pneumonia, unspecified organism
CPT/HCPCS: 99214; G2211

== ENCOUNTER → 2024-05-03 12:46 | Outpatient (BNVA) | payer MEDICARE, SELFPAY | PROVIDERS: PCP Internal Medicine; Visit Provider Hospitalist | DX: J18.1 Lobar pneumonia, unspecified organism (principal); I26.94 Multiple subsegmental thrombotic pulmonary emboli without acute cor pulmonale; I48.19 Other persistent atrial fibrillation; C64.9 Malignant neoplasm of unspecified kidney, except renal pelvis; J96.11 Chronic respiratory failure with hypoxia; R91.8 Other nonspecific abnormal finding of lung field; Z99.81 Dependence on supplemental oxygen; I26.99 Other pulmonary embolism without acute cor pulmonale; Z51.81 Encounter for therapeutic drug level monitoring; Z79.01 Long term (current) use of anticoagulants | CPT/HCPCS: 85610; 99211; 99212 ==

== ENCOUNTER 2024-05-03 13:35 | Outpatient (AMB) | payer MEDICARE, SELFPAY ==
[2024-05-03 13:42] LABS: Prothrombin Time Whole Bld POC 31.3 sec (11.1-13.5); ~PT, ~INR - Anti Coag Clinic 2.6 (0.9-1.1)
--- NOTE | 2024-05-03 13:43 | MHC.OFFVISCO ---
Intake Intake Visit Reasons: Anticoagulation Allergies amlodipine Allergy (Intermediate, Verified 05/03/24 13:36) Difficulty Breathing latex [LATEX] Allergy (Intermediate, Verified 05/03/24 13:36) RASH seasonal Allergy (Intermediate, Uncoded 05/03/24 13:36) Sneezing altace Adverse Reaction (Mild, Uncoded 05/03/24 13:36) Cough Medication List - Last Reconciled 05/03/24 by Tricia Kilgore, RN atenolol 50 mg PO BID cholecalciferol (vitamin D3) 25 mcg PO DAILY digoxin 0.25 mg PO DAILY fluticasone furoate 100 mcg/actuation (Arnuity Ellipta) 1 inh inhalation DAILY 30 days furosemide (Lasix) 20 mg PO DAILY losartan 50 mg PO DAILY Oxygen Home Use As directed warfarin 5 mg See Protocol PO DAILY Nursing Note INR: 2.6 in therapeutic range of 2-3 Medications and supplements reviewed No changes in health, diet, medications, or supplements, Denies any signs and symptoms of bleeding or bruising or clotting. 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
--- OUTSIDE RECORDS SUMMARY | 2024-05-03 17:08 | XMS_ITS | Clinical Summary ---
Author Organization [facility] Address [address] [place] [address] Phone Care Team Providers Care Pigment Pusher Name Role Phone Darrell Sutherland MD Primary Care Provider [phone] Surgical History Surgery Date Site/Laterality Comments US [...] PM EST [facility]ointment [facility] at [address] [address] Health Maintenance Due Date Last [...] patient's age to complete this topic Insurance [facility] [address] MEDICARE [facility] Care Teams Pigment Pusher Relationship Specialty Start Date End Date Darrell Sutherland MD [address] [place] [address] PCP - General Internal Medicine 12/12/23
== END 2024-05-03 13:53 | disposition home or self-care (01) ==
LOC: HO.ACS 13:35
PROVIDERS: PCP Internal Medicine; Visit Provider Internal Medicine
DX: Z79.01 Long term (current) use of anticoagulants (principal)

== ENCOUNTER 2024-05-24 09:07 | Outpatient (AMB) | payer MEDICARE, SELFPAY ==
--- OUTSIDE RECORDS SUMMARY | 2024-05-24 09:24 | XMS_ITS ---
Author Organization [facility] Address [address] [place] [address] Care Team Providers Care Director Staffing Name Role Phone Darrell Sutherland MD Primary Care Provider Jay Talbot Unavailable [phone] Allergies No Known Allergies REASON FOR VISIT [...] W/U Status Risk Notes Problem Gastrointestinal hemorrhage (51405496) Lower GI bleed (K92.2) Active confirmed Vital Signs Temperature 97.7 degrees Fahrenheit 05/12/19 24 Blood pressure systolic 00 mm Hg 05/12/19 24 Blood pressure diastolic 00 mm Hg 024 Height 60 in 05/12/2023 Weight 157 lbs 05/12/2023 BMI 30.66 kg/m2 05/12/2023 Encounters Encounter Location Date Provider Diagnosis [facility] [address] [place] [address] 05/12/2023 Jay Guido Lower GI bleed K92.2 [...] SUDHA GEORGE EDOB:[birth year] (82 yo F)Acc No.[id number]:05/12/2023 Progress Notes Patient:SUDHA LOUISE Provider:?Jay Guido MD :1940???Age:82 Y???Sex:Female D ate:05/12/2023 Address:[address] [place] [address] [id number] Pcp:Darrell Sutherland MD Subjective: * Chief Complaints: [...] less (1 point),?Points?1,?Interpretation?Negative.?Miscellaneous:?Marital status: . 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 ???Nonsmoker; no sig alcohol. * Medications:?TakingVitamin [...] recurrent bleeding.?? * Procedure Codes:?1036F TOBAC CO NON-RKJZF2520 BP SCR NOT PRFRM REC REASON NOS * Preventive Medicine:? ??Counseling:?Care goal follow-up plan:?Above Normal BMI Follow-up?Giving encouragement to exercise,?BMI management provided?Yes.? ??Urinary Incontinence:?Urinary Incontinence?Assessment:?Absent,?Plan of care documented:?No, reason not specified.? * Follow Up:?prn * * Sign off status: Completed true * Provider:?Jay Guido MD Date:? 024 Generated for Naila arrington/Daniela/eTransmitting on:?05/24/2024 09:24 AM EDT History and Physical Notes * [...]
--- OUTSIDE RECORDS SUMMARY | 2024-05-24 09:25 | XMS_ITS ---
Author Organization [facility] Address [address] [place] [address] Care Team Providers Care Relief Captain Name Role Phone Darrell Sutherland MD Primary Care Provider Unavaila Jay Bailey Unavailable [phone] REASON FOR VISIT lower GI bleed Problems Problem Type SNOMED Code ICD Code Onset Dates Problem Status W/U Status Risk Notes Problem Diverticular disease of colon (223232082) Diverticulosis of large intestine without perforation or abscess without bleeding (K57.30) Active confirmed Encounters Encounter Location Date Provider Diagnosis [facility] Outpatient [address] [place] [phone] 05/19/2023 Jay Guido Colon polyps K63.5 ; [...] ROLAN GEORGE EDOB:[birth year] (83 yo F)Acc No.[id number]:05/19/2023 COLON WITH MAC Patient:?ROLAN GEORGE Provider:?Jay Guido MD :1940???Age:82 Y???Sex:Female D ate:05/19/2023 Address:[address] [place] [address] [id number] Pcp:Darrell Sutherland MD Subjective: * Chief Complaints: * ???1. lower GI bleed. * Medical History:? Objective: * Vitals:? Assessment: * Assessment: 1.?Colon polyps - K63.5 (Tiffanie wright)???2.?Lower GI bleeding - K92.2???3.?Diverticulosis of large intestine without perforation or abscess without bleeding - K57.30???4.?Other hemorrhoids - K64.8??? Plan: * Treatment: * Procedure Codes:?51867 LESIO N REMOVAL COLONOSCOPY, 0529F INTRVL 3+YRS [...]
--- OUTSIDE RECORDS SUMMARY | 2024-05-24 09:25 | XMS_ITS | Patient Health Record ---
Author Organization [facility] Address [address] [place] [address] Care Team Providers Care Export Traffic Department Manager Name Role Phone Darrell Sutherland MD Primary Care Provider Dylon Leary Unavailable [phone] Allergies Allergen (clinical drug ingredient) Drug/Non Drug [...] Status Risk Notes Problem Acquired hallux valgus (32869798) Hallux valgus (acquired), left foot (M20.12) Active confirmed Problem Acquired hallux valgus (12347859) Hallux valgus (acquired), right foot (M20.11) Active confirmed Problem Acquired hammer toe of right foot (1193721658595 105) Other hammer toe(s) (acquired), right foot (M20.41) Active confirmed Problem Acquired hammer toe of left foot (4156574020282 103) Other hammer toe(s) (acquired), left foot (M20.42) Active confirmed Plan Of Treatment Pending Test Test Name Order Date X ray : Foot, right 3V 06/05/2020 Insurance Providers Payer Name Payer Address Payer Phone Subscriber Number Group Number Insured Name Patient Relationship to Insured Coverage Start Date Coverage End Date Medicare National Govt Svcs Inc [address] [place] [address] [id number] Sudha Meek Self - patient is the insured [employer] Blue Shield [address] [place] [address] [id number] Sudha Meek Self - patient is the insured Medical (General) History Medical History History ICD Code High blood pressure Surgical History Surgery Date(Month/Year) right knee replacement 10/2016
--- OUTSIDE RECORDS SUMMARY | 2024-05-24 09:25 | XMS_ITS ---
Author Organization [facility] Address [address] [place] [address] Care Team Providers Care Mandarin Tutor Name Role Phone Darrell Sutherland MD Primary Care Provider Jay Talbot [phone] Encounters Encounter Location Date Provider Diagnosis [facility] [address] [place] [address] 05/20/2023 Jay Guido Plan Of Treatment No Information Progress Notes * ROLAN GEORGE EDOB:[birth year] (82 yo F)Acc No.[id number]:05/20/2023 Patient:?ROLAN GEORGE :1940???Age:82 Y???Sex:Female Address:[address] [place] [address] [place] [address] * true * Date:? Generated for Naila arrington/Daniela/eTransmitting on:?05/24/2024 09:24 AM EDT
--- OUTSIDE RECORDS SUMMARY | 2024-05-24 09:25 | XMS_ITS | Clinical Summary ---
Author Organization [facility] Address [address] [place] [address] Phone Care Team Providers Care Culinary Director Name Role Phone Darrell Sutherland MD Primary Care Provider [phone] Surgical History Surgery Date Site/Laterality Comments US [...] PM EST [facility]ment [facility] [address] [address] Health Maintenance Due Date Last [...] Years Completed 01/25/2022, 01/07/2015, 11/24/2010 RSV Immunization Adult Patients Completed 02/22/2023 COVID-19 Vaccine Completed 11/07/2023, , [...] patient's age to complete this topic Insurance MEDICARE [facility] Care Teams Culinary Director Relationship Specialty Start Date End Date Darrell Sutherland MD [address] [place] [address] PCP - General Internal Medicine 12/12/23
--- OUTSIDE RECORDS SUMMARY | 2024-05-24 09:25 | XMS_ITS | Patient Health Record ---
Author Organization [facility] Address [address] [place] [address] Care Team Providers Care Food And Beverage Attendant Name Role Phone Darrell Sutherland MD Primary Care Provider Jay Talbot Unavailable [phone] Allergies No Known Allergies Reason For Referral No Information Medications Medication [...] Risk Notes Problem Diverticular disease of colon (162240397) Diverticulosis of large intestine without perforation or abscess without bleeding (K57.30) Active confirmed Problem Gastrointestinal hemorrhage (84127012) Lower GI bleed (K92.2) Active confirmed Plan Of Treatment Future Test Test Name Order Date COLONOSCOPY 02/27/2013 COLONOSCOPY 05/12/2023 Insurance Providers Payer Name Payer Address Payer Phone Subscriber Number Group Number Insured Name Patient Relationship to Insured Coverage Start Date Coverage End Date MEDICARE OF [place] [address] [place] [address] [id number] ROLAN GEORGE Self - patient is the insured MEDEX ATTN CLAIMS [address] [place] [address] [id number] ROLAN GEORGE Self - patient is the insured Medical (General) History Medical History History ICD Code Choledocholithiasis--removed via ERCP in 02/2010 prior to Lap CCY Hypertension Denies [place],DM,CVA,renal disease AFIB - Dr. 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 Negative colonoscopy in 06/2013 Lower GI bleed 05/04/2023 Surgical History Surgery Date(Month/Year) Knee surgery Cholecystectomy 2010
[2024-05-24 09:30] LABS: Prothrombin Time Whole Bld POC 29.4 sec (11.1-13.5); ~PT, ~INR - Anti Coag Clinic 2.5 (0.9-1.1)
--- NOTE | 2024-05-24 09:41 | MHC.OFFVISCO ---
Intake Intake Visit Reasons: Anticoagulation Allergies amlodipine Allergy (Intermediate, Verified 05/24/24 09:23) Difficulty Breathing latex [LATEX] Allergy (Intermediate, Verified 05/24/24 09:23) RASH seasonal Allergy (Intermediate, Uncoded 05/24/24 09:23) Sneezing altace Adverse Reaction (Mild, Uncoded 05/24/24 09:23) Cough Medication List - Last Reconciled 05/24/24 by Tricia Kilgore, RN atenolol 50 mg PO BID cholecalciferol (vitamin D3) 25 mcg PO DAILY digoxin 0.25 mg PO DAILY fluticasone furoate 100 mcg/actuation (Arnuity Ellipta) 1 inh inhalation DAILY 30 days furosemide (Lasix) 20 mg PO DAILY losartan 50 mg PO DAILY Oxygen Home Use As directed warfarin 5 mg See Protocol PO DAILY Nursing Note INR: 2.5 in therapeutic range of 2-3 Medications and supplements reviewed No changes in health, diet, medications, or supplements, Denies any signs and symptoms of bleeding or bruising or clotting. 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 Illness/Depression: No Coding Level of Care Code Est Patient Level 1 Diagnoses Current use of anticoagulant therapy Z79.01 Assessment & Plan Assessment & Plan (1) Current use of anticoagulant therapy: Code(s): Z79.01 - jail (current) use of anticoagulants Category: Medical
== END 2024-05-24 09:49 | disposition home or self-care (01) ==
LOC: HO.ACS 09:07
PROVIDERS: PCP Internal Medicine; Visit Provider Internal Medicine Medical Oncology
DX: Z79.01 Long term (current) use of anticoagulants (principal)

== ENCOUNTER → 2024-05-24 09:07 | Outpatient (BNVA) | payer MEDICARE, SELFPAY | PROVIDERS: PCP Internal Medicine; Visit Provider Internal Medicine Medical Oncology | DX: I48.19 Other persistent atrial fibrillation (principal); I26.99 Other pulmonary embolism without acute cor pulmonale; Z51.81 Encounter for therapeutic drug level monitoring; Z79.01 Long term (current) use of anticoagulants | CPT/HCPCS: 85610; 99211 ==

== ENCOUNTER 2024-06-14 09:18 | Outpatient (AMB) | payer MEDICARE, SELFPAY ==
[2024-06-14 09:37] LABS: Prothrombin Time Whole Bld POC 28.4 sec (11.1-13.5); ~PT, ~INR - Anti Coag Clinic 2.4 (0.9-1.1)
--- NOTE | 2024-06-14 09:49 | MHC.OFFVISCO ---
Intake Intake Visit Reasons: Anticoagulation Allergies amlodipine Allergy (Intermediate, Verified 06/14/24 09:31) Difficulty Breathing latex [LATEX] Allergy (Intermediate, Verified 06/14/24 09:31) RASH seasonal Allergy (Intermediate, Uncoded 06/14/24 09:31) Sneezing altace Adverse Reaction (Mild, Uncoded 06/14/24 09:31) Cough Medication List - Last Reconciled 06/14/24 by Tricia Kilgore RN atenolol 50 mg PO BID cholecalciferol (vitamin D3) 25 mcg PO DAILY digoxin 0.25 mg PO DAILY fluticasone furoate 100 mcg/actuation (Arnuity Ellipta) 1 inh inhalation DAILY 30 days furosemide (Lasix) 20 mg PO DAILY losartan 50 mg PO DAILY Oxygen Home Use As directed warfarin 5 mg See Protocol PO DAILY Nursing Note INR: 2.4 in therapeutic range of 2-3 Medications and supplements reviewed No changes in health, diet, medications, or supplements, Denies any signs and symptoms of bleeding or bruising or clotting. 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 Illness/Depression: No Coding Level of Care Code Est Patient Level 1 Diagnoses Current use of anticoagulant therapy Z79.01 Results AMB INR Fingerstick AMB INR Fingerstick 2.4 Last Edit by Tricia Kilgore RN on 06/14/24 09:37 interface delay Assessment & Plan Assessment & Plan (1) Current use of anticoagulant therapy: Code(s): Z79.01 - [facility] (current) use of anticoagulants Category: Medical
--- OUTSIDE RECORDS SUMMARY | 2024-06-14 10:07 | XMS_ITS ---
Author Organization [facility] Address [address] [place] [address] Care Team Providers Care Front Tender Name Role Phone Darrell Sutherland MD Primary Care Provider Jay Talbot Unavailable [phone] Allergies No Known Allergies REASON FOR VISIT [...] W/U Status Risk Notes Problem Gastrointestinal hemorrhage (59830959) Lower GI bleed (K92.2) Active confirmed Vital Signs Temperature 97.7 degrees Fahrenheit 05/12/19 24 Blood pressure systolic 00 mm Hg 05/12/19 24 Blood pressure diastolic 00 mm Hg 024 Height 60 in 05/12/2023 Weight 157 lbs 05/12/2023 BMI 30.66 kg/m2 05/12/2023 Encounters Encounter Location Date Provider Diagnosis [facility] [address] [place] [address] 05/12/2023 Jay Guido Lower GI bleed K92.2 [...] SUDHA GEORGE EDOB:[birth year] (82 yo F)Acc No.[id number]:05/12/2023 Progress Notes Patient:SUDHA LOUISE Provider:?Jay Guido MD :1940???Age:82 Y???Sex:Female D ate:05/12/2023 Address:[address] [place] [address] [place] Pcp:Darrell Sutherland MD Subjective: * Chief Complaints: [...] less (1 point),?Points?1,?Interpretation?Negative.?Miscellaneous:?Marital status: . 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 ???Nonsmoker; no sig alcohol. * Medications:?TakingVitamin [...] recurrent bleeding.?? * Procedure Codes:?1036F TOBAC CO NON-[id number] BP SCR NOT PRFRM REC REASON NOS * Preventive Medicine:? ??Counseling:?Care goal follow-up plan:?Above Normal BMI Follow-up?Giving encouragement to exercise,?BMI management provided?Yes.? ??Urinary Incontinence:?Urinary Incontinence?Assessment:?Absent,?Plan of care documented:?No, reason not specified.? * Follow Up:?prn * * Sign off status: Completed true * Provider:?Jay Guido MD Date:? 024 Generated for Naila arrington/Daniela/eTransmitting on:?06/14/2024 10:07 AM EDT History and Physical Notes * [...]
--- OUTSIDE RECORDS SUMMARY | 2024-06-14 10:08 | XMS_ITS | Clinical Summary ---
Author Organization [facility] Address [address] [place] [address] Phone Care Team Providers Care Moto Mix Operator Name Role Phone Darrell Suhterland MD Primary Care Provider [phone] Surgical History Surgery Date Site/Laterality Comments US [...] PM EST [facility]ment [facility] [address] [address] Health Maintenance Due Date Last Done Comments Zoster Vaccines (1 of 2) 01/16/2009 11/21/2008 Cholesterol Screening (Lipid Panel) 01/24/2022 Falls Risk Assessment 01/24/2022 Medicare Annual Wellness Visit 01/24/2022 Osteoporosis Screening (Bone Density Screening) 01/24/2022 Social Influencers of Health Screening 01/24/2022 Depression Screening 01/28/2024 01/27/2023 Hypertension/CHF/CAD Annual BMP Blood Test 05/04/2024 05/05/2023, 12/13/2022, 01/28/2022, Additional history exists COVID-19 Vaccine (7 - Pfizer risk 2023- season) 2024 11/07/2023, 12/16/2022, 01/22/2022, Additional history exists DTaP,Tdap,and Td Vaccines (2 - Td or Tdap) 01/21/2026 01/22/2016 Pneumococcal Vaccine: 50+ Years Completed 01/25/2022, 01/07/2015, 11/24/2010 RSV Immunization Adult Patients Completed 02/22/2023 Influenza Vaccine Completed 11/23/2023, , 12/07/2021, Additional [...] age to complete this topic Meningococcal B Vaccine Aged Out No l onger eligible based on patient's age to complete this topic RSV Immunization Patients Under 20 months Aged Out No longer eligible based on patient's age to complete this topic Varicella Vaccines Aged Out No longer eligible based on patient's age to complete this topic Insurance MEDICARE [facility] Care Teams Moto Mix Operator Relationship Specialty Start Date End Date Darrell Sutherland MD [address] [place] [address] PCP - General Internal Medicine 12/12/23
--- OUTSIDE RECORDS SUMMARY | 2024-06-14 10:08 | XMS_ITS ---
Author Organization [facility] Address [address] [place] [address] Care Team Providers Care Banana Grader Name Role Phone Darrell Sutherland MD Primary Care Provider Jay Talbot [phone] Encounters Encounter Location Date Provider Diagnosis [facility] [address] [place] [address] 05/20/2023 Jay Guido Plan Of Treatment No Information Progress Notes * ROLAN GEORGE EDOB:[birth year] (82 yo F)Acc No.[id number]:05/20/2023 Patient:?ROLAN GEORGE :1940???Age:82 Y???Sex:Female Address:[address] [place] [address] [place] [address] * true * Date:? Generated for Naila arrington/Daniela/eTransmitting on:?06/14/2024 10:07 AM EDT
--- OUTSIDE RECORDS SUMMARY | 2024-06-14 10:08 | XMS_ITS | Patient Health Record ---
Author Organization [facility] Address [address] [place] [address] Care Team Providers Care Helicopter Specialist Name Role Phone Darrell Sutherland MD Primary Care Provider Dylon Leary Unavailable [phone] Allergies Allergen (clinical drug ingredient) Drug/Non Drug [...] Status Risk Notes Problem Acquired hallux valgus (93842045) Hallux valgus (acquired), left foot (M20.12) Active confirmed Problem Acquired hallux valgus (01040675) Hallux valgus (acquired), right foot (M20.11) Active confirmed Problem Acquired hammer toe of right foot (3332766491156 105) Other hammer toe(s) (acquired), right foot (M20.41) Active confirmed Problem Acquired hammer toe of left foot (3965330130463 103) Other hammer toe(s) (acquired), left foot (M20.42) Active confirmed Plan Of Treatment Pending Test Test Name Order Date X ray : Foot, right 3V 06/05/2020 Insurance Providers Payer Name Payer Address Payer Phone Subscriber Number Group Number Insured Name Patient Relationship to Insured Coverage Start Date Coverage End Date Medicare National Govt Svcs Inc [address] [place] [address] [id number] Sudha Meek Self - patient is the insured Med[employer] Blue Shield [address] [place] [address] [id number] Sudha Meek Self - patient is the insured Medical (General) History Medical History History ICD Code High blood pressure Surgical History Surgery Date(Month/Year) right knee replacement 10/2016
--- OUTSIDE RECORDS SUMMARY | 2024-06-14 10:08 | XMS_ITS | Patient Health Record ---
Author Organization [facility] Address [address] [place] [address] Care Team Providers Care Furnace Combustion Tester Name Role Phone Darrell Sutherland MD Primary Care Provider Jay Talbot Unavailable [phone] Allergies No Known Allergies Reason For Referral [...] Risk Notes Problem Diverticular disease of colon (571722330) Diverticulosis of large intestine without perforation or abscess without bleeding (K57.30) Active confirmed Problem Gastrointestinal hemorrhage (75601128) Lower GI bleed (K92.2) Active confirmed Plan Of Treatment Future Test Test Name Order Date COLONOSCOPY 02/27/2013 COLONOSCOPY 05/12/2023 Insurance Providers Payer Name Payer Address Payer Phone Subscriber Number Group Number Insured Name Patient Relationship to Insured Coverage Start Date Coverage End Date MEDICARE OF [place] [address] [place] [address] [id number] ROLAN GEORGE Self - patient is the insured MEDEX ATTN CLAIMS [address] [place] [address] [phone] [id number] ROLAN GEORGE Self - patient is the insured Medical (General) History Medical History History ICD Code Choledocholithiasis--removed via ERCP in 02/2010 prior to Lap CCY Hypertension Denies [place],DM,CVA,renal disease AFIB - Dr. 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
--- OUTSIDE RECORDS SUMMARY | 2024-06-14 10:08 | XMS_ITS ---
Author Organization [facility] Address [address] [place] [address] Care Team Providers Care Auctioneer Automobile Name Role Phone Darrell Sutherland MD Primary Care Provider Unavaila Jay Bailey Unavailable [phone] REASON FOR VISIT lower GI bleed Problems Problem Type SNOMED Code ICD Code Onset Dates Problem Status W/U Status Risk Notes Problem Diverticular disease of colon (856157018) Diverticulosis of large intestine without perforation or abscess without bleeding (K57.30) Active confirmed Encounters Encounter Location Date Provider Diagnosis [facility] [address] [place] [phone] 05/19/2023 Jay Guido Colon polyps K63.5 ; [...] ROLAN GEORGE EDOB:[birth year] (83 yo F)Acc No.[id number]:05/19/2023 COLON WITH MAC Patient:?ROLAN GEORGE Provider:?Jay Guido MD :1940???Age:82 Y???Sex:Female D ate:05/19/2023 Address:[address] [place] [address] [place] Pcp:Darrell Sutherland MD Subjective: * Chief Complaints: * ???1. lower GI bleed. * Medical History:? Objective: * Vitals:? Assessment: * Assessment: 1.?Colon polyps - K63.5 (Tiffanie wright)???2.?Lower GI bleeding - K92.2???3.?Diverticulosis of large intestine without perforation or abscess without bleeding - K57.30???4.?Other hemorrhoids - K64.8??? Plan: * Treatment: * Procedure Codes:?47467 LESIO N REMOVAL COLONOSCOPY, 0529F INTRVL 3+YRS [...]
== END 2024-06-14 09:51 | disposition home or self-care (01) ==
LOC: HO.ACS 09:18
PROVIDERS: PCP Internal Medicine; Visit Provider Internal Medicine Medical Oncology
DX: Z79.01 Long term (current) use of anticoagulants (principal)

== ENCOUNTER → 2024-06-14 09:18 | Outpatient (BNVA) | payer MEDICARE, SELFPAY | PROVIDERS: PCP Internal Medicine; Visit Provider Internal Medicine Medical Oncology | DX: I48.19 Other persistent atrial fibrillation (principal); I26.99 Other pulmonary embolism without acute cor pulmonale; Z79.01 Long term (current) use of anticoagulants; Z51.81 Encounter for therapeutic drug level monitoring | CPT/HCPCS: 85610; 99211 ==

== ENCOUNTER 2024-07-05 09:42 | Outpatient (AMB) | payer MEDICARE, SELFPAY ==
--- NOTE | 2024-07-05 09:49 | MHC.OFFVISCO ---
Intake Intake Visit Reasons: Anticoagulation Allergies amlodipine Allergy (Intermediate, Verified 07/05/24 09:45) Difficulty Breathing latex [LATEX] Allergy (Intermediate, Verified 07/05/24 09:45) RASH seasonal Allergy (Intermediate, Uncoded 07/05/24 09:45) Sneezing altace Adverse Reaction (Mild, Uncoded 07/05/24 09:45) Cough Medication List - Last Reconciled 07/05/24 by Sherrell Ya RN atenolol 50 mg PO BID cholecalciferol (vitamin D3) 25 mcg PO DAILY digoxin 0.25 mg PO DAILY fluticasone furoate 100 mcg/actuation (Arnuity Ellipta) 1 inh inhalation DAILY 30 days furosemide (Lasix) 20 mg PO DAILY losartan 50 mg PO DAILY Oxygen Home Use As directed warfarin 5 mg See Protocol PO DAILY Nursing Note INR: 2.6- in therapeutic range of 2-3 Medications and supplements reviewed- no changes No changes in health, diet, medications, or supplements, Denies any signs and symptoms of bleeding or bruising or clotting. 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 Illness/Depression: No Coding Level of Care Code Est Patient Level 1 Diagnoses Current use of anticoagulant therapy Z79.01 Results AMB INR Fingerstick AMB INR Fingerstick 2.6 Last Edit by Sherrell Ya RN on 07/05/24 09:51 interface delay Assessment & Plan Assessment & Plan (1) Current use of anticoagulant therapy: Code(s): Z79.01 - prison (current) use of anticoagulants Category: Medical
--- OUTSIDE RECORDS SUMMARY | 2024-07-05 10:34 | XMS_ITS ---
Author Organization [facility] Address [address] [place] [address] Care Team Providers Care Secondary English Teacher Name Role Phone Darrell Sutherland MD Primary Care Provider Unavaila Jay Bailey Unavailable [phone] REASON FOR VISIT lower GI bleed Problems Problem Type SNOMED Code ICD Code Onset Dates Problem Status W/U Status Risk Notes Problem Diverticular disease of colon (859187716) Diverticulosis of large intestine without perforation or abscess without bleeding (K57.30) Active confirmed Encounters Encounter Location Date Provider Diagnosis [facility] [address] [place] [phone] 05/19/2023 Jay Guido Colon polyps K63.5 ; [...] ROLAN GEORGE EDOB:[birth year] (83 yo F)Acc No.[id number]:05/19/2023 COLON WITH MAC Patient:?ROLAN GEORGE Provider:?Jya Guido MD :1940???Age:82 Y???Sex:Female D ate:05/19/2023 Address:[address] [place] [address] [place] Pcp:Darrell Sutherland MD Subjective: * Chief Complaints: * ???1. lower GI bleed. * Medical History:? Objective: * Vitals:? Assessment: * Assessment: 1.?Colon polyps - K63.5 (Tiffanie wright)???2.?Lower GI bleeding - K92.2???3.?Diverticulosis of large intestine without perforation or abscess without bleeding - K57.30???4.?Other hemorrhoids - K64.8??? Plan: * Treatment: * Procedure Codes:?02130 LESIO N REMOVAL COLONOSCOPY, 0529F INTRVL 3+YRS PTS CLNSCP DOCD, 0528F RCMND FLW-UP 10 YRS DOCD, Modifiers: 1P * * The named appointment provid er may or may not be the originator of this progress note, and it is not deemed complete until electronically signed by the appointment provider. Sign off status: Pending * Provider:?Jay Guido MD Date:? 024 Generated for Naila arrington/Daniela/eTransmitting on:?07/05/2024 10:33 AM EDT
--- OUTSIDE RECORDS SUMMARY | 2024-07-05 10:34 | XMS_ITS | Patient Health Record ---
Author Organization [facility] Address [address] [place] [address] Care Team Providers Care Pressure Supervisor Name Role Phone Darrell Sutherland MD Primary Care Provider Dylon Leary Unavailable [phone] Allergies Allergen (clinical drug ingredient) Drug/Non Drug [...] Status Risk Notes Problem Acquired hallux valgus (75375831) Hallux valgus (acquired), left foot (M20.12) Active confirmed Problem Acquired hallux valgus (50639418) Hallux valgus (acquired), right foot (M20.11) Active confirmed Problem Acquired hammer toe of right foot (1937493197978 105) Other hammer toe(s) (acquired), right foot (M20.41) Active confirmed Problem Acquired hammer toe of left foot (2255366596021 103) Other hammer toe(s) (acquired), left foot (M20.42) Active confirmed Plan Of Treatment Pending Test Test Name Order Date X ray : Foot, right 3V 06/05/2020 Insurance Providers Payer Name Payer Address Payer Phone Subscriber Number Group Number Insured Name Patient Relationship to Insured Coverage Start Date Coverage End Date Medicare National Govt Svcs Inc [address] [place] [address] [id number] Sudha Meek Self - patient is the insured Med[employer] Blue Shield [address] [place] [address] [id number] Sudha Meek Self - patient is the insured Medical (General) History Medical History History ICD Code High blood pressure Surgical History Surgery Date(Month/Year) right knee replacement 10/2016
--- OUTSIDE RECORDS SUMMARY | 2024-07-05 10:34 | XMS_ITS | Clinical Summary ---
Author Organization [facility] Address [address] [place] [address] Phone Care Team Providers Care Android Ios Developer Name Role Phone Darrell Sutherland MD Primary Care Provider [phone] Surgical History Surgery Date Site/Laterality Comments US [...] PM EST [facility]ment [facility] at [address] [address] Health Maintenance Due Date Last [...] age to complete this topic Insurance MEDICARE [facility] Care Teams Android Ios Developer Relationship Specialty Start Date End Date Darrell Sutherland MD [address] [place] [address] PCP - General Internal Medicine 12/12/23
--- OUTSIDE RECORDS SUMMARY | 2024-07-05 10:34 | XMS_ITS ---
Author Organization [facility] Address [address] [place] [address] Care Team Providers Care Log Clerk Name Role Phone Darrell Sutherland MD Primary Care Provider Jay Talbot [phone] Encounters Encounter Location Date Provider Diagnosis [facility] [address] [place] [address] 05/20/2023 Jay Guido Plan Of Treatment No Information Progress Notes * ROLAN GEORGE EDOB:[birth year] (82 yo F)Acc No.[id number]:05/20/2023 Patient:?ROLAN GEORGE :1940???Age:82 Y???Sex:Female Address:[address] [place] [address] [place] [address] * true * Date:? Generated for Naila arrington/Daniela/eTransmitting on:?07/05/2024 10:34 AM EDT
--- OUTSIDE RECORDS SUMMARY | 2024-07-05 10:34 | XMS_ITS ---
Author Organization [facility] Address [address] [place] [address] Care Team Providers Care Drawing Tracer Name Role Phone Darrell Sutherland MD Primary Care Provider Jay Talbot Unavailable [phone] Allergies No Known Allergies REASON FOR VISIT [...] W/U Status Risk Notes Problem Gastrointestinal hemorrhage (11996669) Lower GI bleed (K92.2) Active confirmed Vital Signs Temperature 97.7 degrees Fahrenheit 05/12/19 24 Blood pressure systolic 00 mm Hg 05/12/19 24 Blood pressure diastolic 00 mm Hg 024 Height 60 in 05/12/2023 Weight 157 lbs 05/12/2023 BMI 30.66 kg/m2 05/12/2023 Encounters Encounter Location Date Provider Diagnosis [facility] [address] [place] [address] 05/12/2023 Jay Guido Lower GI bleed K92.2 [...] SUDHA GEORGE EDOB:[birth year] (82 yo F)Acc No.[id number]:05/12/2023 Progress Notes Patient:SUDHA LOUISE Provider:?Jay Guido MD :1940???Age:82 Y???Sex:Female D ate:05/12/2023 Address:[address] [place] [address] [id number] Pcp:Darrell Sutherland MD Subjective: * Chief Complaints: [...] less (1 point),?Points?1,?Interpretation?Negative.?Miscellaneous:?Marital status: . 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 ???Nonsmoker; no sig alcohol. * Medications:?TakingVitamin D [...] recurrent bleeding.?? * Procedure Codes:?1036F TOBAC CO [id number] BP SCR NOT PRFRM REC REASON NOS * Preventive Medicine:? ??Counseling:?Care goal follow-up plan:?Above Normal BMI Follow-up?Giving encouragement to exercise,?BMI management provided?Yes.? ??Urinary Incontinence:?Urinary Incontinence?Assessment:?Absent,?Plan of care documented:?No, reason not specified.? * Follow Up:?prn * * Sign off status: Completed true * Provider:?Jay Guido MD Date:? 024 Generated for Naila arrington/Daniela/eTransmitting on:?07/05/2024 10:33 AM EDT History and Physical Notes * [...]
--- OUTSIDE RECORDS SUMMARY | 2024-07-05 10:34 | XMS_ITS | Patient Health Record ---
Author Organization [facility] Address [address] [place] [address] Care Team Providers Care Hearth Feeder Name Role Phone Darrell Sutherland MD Primary Care Provider Jay Talbot Unavailable [phone] Allergies No Known Allergies Reason For Referral [...] Risk Notes Problem Diverticular disease of colon (244829800) Diverticulosis of large intestine without perforation or abscess without bleeding (K57.30) Active confirmed Problem Gastrointestinal hemorrhage (68808234) Lower GI bleed (K92.2) Active confirmed Plan Of Treatment Future Test Test Name Order Date COLONOSCOPY 02/27/2013 COLONOSCOPY 05/12/2023 Insurance Providers Payer Name Payer Address Payer Phone Subscriber Number Group Number Insured Name Patient Relationship to Insured Coverage Start Date Coverage End Date MEDICARE OF [place] [address] [place] [address] [id number] ROLAN GEORGE Self - patient is the insured MED[employer] ATT[employer] CLAIMS [address] [place] [address] [id number] ROLAN GEORGE Self - patient is the insured Medical (General) History Medical History History ICD Code Choledocholithiasis--removed via ERCP in 02/2010 prior to Lap [facility] Hypertension Denies HI,DM,CVA,renal disease AFIB - Dr. Ryan--Unsuccessful cardiover shanthi 02/2023 Interstitiail lung disease-Dr. Monge --sleeps with oxygen Ablation of a cancer in the right kidney 05/2022 at [facility] Negative colonoscopy in 06/2013 Lower GI bleed 05/04/2023 Surgical History Surgery Date(Month/Year) Knee surgery Cholecystectomy 2010
[2024-07-06 08:04] LABS: Prothrombin Time Whole Bld POC 30.6 sec (11.1-13.5); ~PT, ~INR - Anti Coag Clinic 2.6 (0.9-1.1)
== END 2024-07-05 10:04 | disposition home or self-care (01) ==
LOC: HO.ACS 09:42
PROVIDERS: PCP Internal Medicine; Visit Provider Internal Medicine Medical Oncology
DX: Z79.01 Long term (current) use of anticoagulants (principal)

== ENCOUNTER → 2024-07-05 09:42 | Outpatient (BNVA) | payer MEDICARE, SELFPAY | PROVIDERS: PCP Internal Medicine; Visit Provider Internal Medicine Medical Oncology | DX: I48.19 Other persistent atrial fibrillation (principal); I26.99 Other pulmonary embolism without acute cor pulmonale; Z79.01 Long term (current) use of anticoagulants; Z51.81 Encounter for therapeutic drug level monitoring | CPT/HCPCS: 85610; 99211 ==

== ENCOUNTER 2024-07-26 09:49 | Outpatient (AMB) | payer MEDICARE, SELFPAY ==
[2024-07-26 10:04] LABS: Prothrombin Time Whole Bld POC 31.1 sec (11.1-13.5); ~PT, ~INR - Anti Coag Clinic 2.6 (0.9-1.1)
--- NOTE | 2024-07-26 10:12 | MHC.OFFVISCO ---
Intake Intake Visit Reasons: Anticoagulation Allergies amlodipine Allergy (Intermediate, Verified 07/26/24 09:56) Difficulty Breathing latex [LATEX] Allergy (Intermediate, Verified 07/26/24 09:56) RASH seasonal Allergy (Intermediate, Uncoded 07/26/24 09:56) Sneezing altace Adverse Reaction (Mild, Uncoded 07/26/24 09:56) Cough Medication List - Last Reconciled 07/26/24 by Farheen Pruett RN atenolol 50 mg PO BID cholecalciferol (vitamin D3) 25 mcg PO DAILY digoxin 0.25 mg PO DAILY fluticasone furoate 100 mcg/actuation (Arnuity Ellipta) 1 inh inhalation DAILY 30 days furosemide (Lasix) 20 mg PO DAILY losartan 50 mg PO DAILY Oxygen Home Use As directed warfarin 5 mg See Protocol PO DAILY Nursing Note INR: 2.6 in therapeutic range Medications and supplements reviewed No changes in health, diet, medications, or supplements, Denies any signs and symptoms of bleeding or bruising or clotting. Bleeding, bruising, clotting discussed Nutritional guidance given Dose: Keep same dosing 5mg mwf/ 7.5mg x 4 days F/U INR: 4 weeks Patient verbalizes understanding of instructions given Anti-Coag Initial Assessment Social Hx Patient Tobacco Use Status: Former Tobacco user Tobacco use type: Cigarette alcohol intake: former Alcohol intake frequency: does not drink Cardiovascular Hx: HTN, Arrhythmias and Other (atrial fib) Lung Disease HX: DVT/PE (blood clots in lungs 12/13) and Other (interstitial lung disease) Musculoskeletal Hx: Arthritis (bilateral knee, right total replacement) GI Hx: Bleeding (GI, rectal), Diverticulosis and Hemorrhoids Hx: Other (renal cell CA 12/13) Cancer HX: Yes Psych. Illness/Depression: No Questionnaires HAS-BLED Does the patient had uncontrolled Hypertension?: Yes Does the patient have renal disease?: Yes (hx of renal cell cancer ) Does the patient have liver disease?: No Does the patient have a history of stroke?: No Has the patient had major bleeding or predisposition to bleeding?: Yes Does the patient have labile INRs?: No Is the patient over 65 years of age?: Yes Is the patient on medications that gives them a predisposition to bleeding?: Yes Does the patient use alcohol?: No HAS-BLED Score: 5 CHADSVASC Age: 75 or over Gender: Female Does the patient have a history of CHF?: No Does the patient have a history of Hypertension?: Yes Does the patient have a history of Stroke/TIA/Thromboembolism?: Yes Does the patient have a history of Vascular Disease (prior NH, PAD or aortic plaque)?: No Does the patient have a history of Diabetes?: No CHADS VACS Score: 6 Rachael Prediction Score Rsk VTE Active Cancer: Yes Previous VTE, excluding superficial vein thrombosis: Yes Reduced mobility: No Already known Thrombophilic Condition: No With-in last month Trauma and/or Surgery: No Elderly 70 year or older: Yes Heart and/or Respiratory Failure: No Acute Myocardial infarction and/or Ischemic Stroke: No Acute Infection and/or Rheumatologic Disorder: No Obesity (BMI 30 or greater): No Ongoing Hormonal Treatment: No Score: 7 Rachael Score less than 4; Low Risk of VTE Rachael Score 4 or greater; High Risk of VTE Coding Level of Care Code Est Patient Level 1 Diagnoses Current use of anticoagulant therapy Z79.01 Assessment & Plan Assessment & Plan (1) Current use of anticoagulant therapy: Code(s): Z79.01 - terminal gauger (current) use of anticoagulants Category: Medical
--- OUTSIDE RECORDS SUMMARY | 2024-07-26 11:05 | XMS_ITS ---
Author Organization [facility] Address [address] [place] [address] Care Team Providers Care Retail Department Supervisor Name Role Phone Darrell Sutherland MD Primary Care Provider Jay Talbot Unavailable [phone] Allergies No Known Allergies REASON FOR VISIT [...] W/U Status Risk Notes Problem Gastrointestinal hemorrhage (38871980) Lower GI bleed (K92.2) Active confirmed Vital Signs Temperature 97.7 degrees Fahrenheit 05/12/19 24 Blood pressure systolic 00 mm Hg 05/12/19 24 Blood pressure diastolic 00 mm Hg 024 Height 60 in 05/12/2023 Weight 157 lbs 05/12/2023 BMI 30.66 kg/m2 05/12/2023 Encounters Encounter Location Date Provider Diagnosis [facility] [address] [place] [address] 05/12/2023 Jay Guido Lower GI bleed K92.2 [...] SUDHA GEORGE EDOB:[birth year] (82 yo F)Acc No.[id number]:05/12/2023 Progress Notes Patient:SUDHA LOUISE Provider:?Jay Guido MD :1940???Age:82 Y???Sex:Female D ate:05/12/2023 Address:[address] [place] [address] [id number] Pcp:Darrell Sutherland MD Subjective: * Chief Complaints: [...] less (1 point),?Points?1,?Interpretation?Negative.?Miscellaneous:?Marital status: . 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 ???Nonsmoker; no sig alcohol. * Medications:?TakingVitamin D [...] recurrent bleeding.?? * Procedure Codes:?1036F TOBAC CO NON-[id number] BP SCR NOT PRFRM REC REASON NOS * Preventive Medicine:? ??Counseling:?Care goal follow-up plan:?Above Normal BMI Follow-up?Giving encouragement to exercise,?BMI management provided?Yes.? ??Urinary Incontinence:?Urinary Incontinence?Assessment:?Absent,?Plan of care documented:?No, reason not specified.? * Follow Up:?prn * * Sign off status: Completed true * Provider:?Jay Guido MD Date:? 024 Generated for Naila arrington/Daniela/eTransmitting on:?07/26/2024 11:05 AM EDT History and Physical Notes * [...]
== END 2024-07-26 10:16 | disposition home or self-care (01) ==
LOC: HO.ACS 09:49
PROVIDERS: PCP Internal Medicine; Visit Provider Internal Medicine Medical Oncology
DX: Z79.01 Long term (current) use of anticoagulants (principal)

== ENCOUNTER → 2024-07-26 09:49 | Outpatient (BNVA) | payer MEDICARE, SELFPAY | PROVIDERS: PCP Internal Medicine; Visit Provider Internal Medicine Medical Oncology | DX: I48.19 Other persistent atrial fibrillation (principal); I26.99 Other pulmonary embolism without acute cor pulmonale; Z79.01 Long term (current) use of anticoagulants; Z51.81 Encounter for therapeutic drug level monitoring | CPT/HCPCS: 85610; 99211 ==

== ENCOUNTER 2024-08-07 10:10 | Outpatient (AMB) | payer MEDICARE, SELFPAY ==
[2024-08-07 10:13] VITALS: BP 122/70; PULSE 72; BMI 31.0
--- NOTE | 2024-08-07 10:13 | MHC.OFFVIS ---
Vital Signs 08/07/24 10:13 Height 5 ft Weight 158 lb 11.725 oz BMI 31.0 BP 122/70 Blood Pressure Location Lt brachial Position Sitting Pulse 72 Intake Visit Reasons: 1 yr follow up Intake Note: 1 year follow-up with ekg feeling good Garnett Feeder Required: No Allergies amlodipine Allergy (Intermediate, Verified 07/26/24 09:56) Difficulty Breathing latex [LATEX] Allergy (Intermediate, Verified 07/26/24 09:56) RASH seasonal Allergy (Intermediate, Uncoded 07/26/24 09:56) Sneezing altace Adverse Reaction (Mild, Uncoded 07/26/24 09:56) Cough Medication List - Last Reconciled 08/07/24 by Rob Ryan MD atenolol 50 mg PO BID cholecalciferol (vitamin D3) 25 mcg PO DAILY digoxin 0.25 mg PO DAILY furosemide (Lasix) 20 mg PO DAILY PRN losartan 50 mg PO DAILY Oxygen Home Use As directed warfarin 5 mg See Protocol PO DAILY HPI Comments Details: Sudha comes for follow-up for atrial fibrillation with heart failure. She says since been started on losartan she is feeling very congested with running sinus. She says the symptoms happen mostly at nighttime and she is very bothered by it. Her blood pressures diuretic at home mostly well controlled but sometimes can be elevated. She has not found any clear pattern to it. Denies any orthopnea, PND, leg edema. Uses oxygen at nighttime for interstitial lung disease. She is also recommended to use oxygen with exertion but she says she only uses when she would really he is doing very heavy exertional work. She has not taken Lasix for awhile. She has not had any other congestive symptoms. Takes all her medications. [facility] Medical History Pulmonary nodules Pulmonary embolism History of kidney disease Pulmonary nodule Renal cell cancer Renal cell carcinoma of right kidney Chronic respiratory failure with hypoxia Pneumonitis ILD (interstitial lung disease) Surgical History History of right knee surgery (~10/2016) History of History of cholecystectomy Social History Household Members: None Housing: Condominium Do you presently have visiting nurse or other home services: No Alcohol intake: former Patient Tobacco Use Status: Former Tobacco user Tobacco use type: Cigarette Years Smoked: 5 Advance Directives Date on File: 12/01/22 service: No Review of Systems Const Denies chills, Denies fatigue, Denies fever(s), Denies frequent falls, Denies weakness, Denies weight gain and Denies weight loss ENT Denies dizziness Card Denies chest pain, Denies leg edema, Denies lightheadedness, Denies palpitations, Denies dyspnea, Denies dyspnea on exertion, Denies orthopnea and Denies other (loss of consciousness) Resp Denies cough, Denies dyspnea and Denies dyspnea on exertion GI Denies hematochezia and Denies change in stool character Musc Denies abnormal gait, Denies muscle weakness, Denies numbness, Denies radiating pain into limb and Denies tingling Neuro Denies abnormal gait, Denies dizziness, Denies frequent falls, Denies numbness, Denies tingling and Denies weakness Endo Denies fatigue and Denies palpitations Physical Exam Vital Signs: Last Vital Signs Pulse 72 08/07/24 10:13 BP 122/70 08/07/24 10:13 BMI result Body Mass Index 31.0 Const General: cooperative, healthy appearing, comfortable and no acute distress Orientation/consciousness: patient oriented x3 Neck Neck: Yes normal visual inspection and Yes no JVD Chest Chest palpation & inspection: normal inspection of the chest Resp Effort & Inspection: normal respiratory effort Auscultation: crackles (each base coarse), no rhonchi and no wheezes Cardio Jugular venous distension: no JVD Rate: regular rate Heart sounds: S1 normal heart sound present, S2 normal heart sound present, no murmurs and no rubs Neuro General: patient oriented x3 Extrem General: Yes normal to inspection and No no pedal edema Psych Appearance: grossly normal Mental Status: mental status grossly normal Speech and movement: Normal speech and movement present Office Procedures EKG Details: EKG shows atrial fibrillation with low-voltage QRS nonspecific STT wave changes 31690-Xvydpmxgrmwwhehsw, Complete Assessment & Plan Assessment & Plan (1) Atrial fibrillation: Code(s): I48.91 - Unspecified atrial fibrillation Category: Medical Qualifiers: Atrial fibrillation type: persistent (not longstanding) Qualified Code(s): I48.19 - Other persistent atrial fibrillation Plan: Chronic atrial fibrillation my longstanding. Limited options of pursuing rhythm control especially given her interstitial lung disease can not use amiodarone. Alternative drugs have going to be less effective. This was discussed with her. Will obtain echocardiogram near future. Continue current rate control therapy with digoxin as well as atenolol. Follow-up digoxin level today. Continue full oral anticoagulation, currently on warfarin therapy. Maintain target INR between 2 and 3 being followed by [facility]. (2) (HFpEF) heart failure with preserved ejection fraction: Code(s): I50.30 - Unspecified diastolic (congestive) heart failure Category: Medical Plan: Heart failure preserved ejection fraction, clinically appears to be euvolemic well compensated. She is on p.r.n. use of Lasix. Heart failure symptoms were discussed. Daily weight monitoring avoidance salt loading was discussed. Continue aggressive blood pressure control, see below. Continue treatment of underlying interstitial lung disease and encouraged to use oxygen when needed. Progressive signs of heart failure were discussed. Will obtain echocardiogram and BNP. (3) Hypertension: Code(s): I10 - Essential (primary) hypertension Category: Medical Plan: Hypertension which appears to be well optimized on current therapy although she is not tolerating side effects from losartan therapy. Advised her to hold losartan therapy for now. If her sinus symptoms do not improve, I have suggested her to restart losartan therapy. Advised to monitor blood pressure closely at home. Will follow up in the clinic in 2 weeks' time for blood pressure check. Clinically will follow with her with me in 6 months time. Orders: Orders B Type Natriuretic Peptide Today I48.19 - Other persistent atrial fibrillation Basic Metabolic Panel Today I48.19 - Other persistent atrial fibrillation CA echo transthoracic complete Today I48.19 - Other persistent atrial fibrillation Digoxin Today I48.19 - Other persistent atrial fibrillation, I48.20 - Chronic atrial fibrillation, unspecified Medications: New digoxin 125 mcg PO DAILY 30 tabs 5RF I48.19 - Other persistent atrial fibrillation Changed From furosemide (Lasix) 20 mg PO DAILY 30 tabs 5RF To furosemide (Lasix) 20 mg PO DAILY PRN On Hold losartan Hold Comment: Doctor's Order 50 mg PO DAILY 90 tabs 3RF Coding Level of Care Code Est Pt Level 4 (29521) Complex EM visit Add On G2211 Diagnoses Persistent atrial fibrillation I48.19 Atrial fibrillation type: persistent (not longstanding) (HFpEF) heart failure with preserved ejection fraction I50.30 Hypertension I10 CPT Codes EKG - CPT: 59879-Fvehlyuwaykdsfsur, Complete ([id number])
--- OUTSIDE RECORDS SUMMARY | 2024-08-07 11:36 | XMS_ITS ---
Author Organization [facility] Address [address] [place] [address] Care Team Providers Care Photographers' Model Name Role Phone Darrell Sutherland MD Primary Care Provider Jay Talbot Unavailable [phone] Allergies No Known Allergies REASON FOR VISIT [...] W/U Status Risk Notes Problem Gastrointestinal hemorrhage (38286907) Lower GI bleed (K92.2) Active confirmed Vital Signs Temperature 97.7 degrees Fahrenheit 05/12/19 24 Blood pressure systolic 00 mm Hg 05/12/19 24 Blood pressure diastolic 00 mm Hg 024 Height 60 in 05/12/2023 Weight 157 lbs 05/12/2023 BMI 30.66 kg/m2 05/12/2023 Encounters Encounter Location Date Provider Diagnosis [facility] [address] [place] [address] 05/12/2023 Jay Guido Lower GI bleed K92.2 [...] SUDHA GEORGE EDOB:[birth year] (82 yo F)Acc No.[id number]:05/12/2023 Progress Notes Patient:SUDHA LOUISE Provider:?Jay Guido MD :1940???Age:82 Y???Sex:Female D ate:05/12/2023 Address:[address] [place] [address] [place], [place] Pcp:Darrell Sutherland MD Subjective: * Chief Complaints: [...] less (1 point),?Points?1,?Interpretation?Negative.?Miscellaneous:?Marital status: . 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 ???Nonsmoker; no sig alcohol. * Medications:?TakingVitamin [...] recurrent bleeding.?? * Procedure Codes:?1036F TOBAC CO [id number] BP SCR NOT PRFRM REC REASON NOS * Preventive Medicine:? ??Counseling:?Care goal follow-up plan:?Above Normal BMI Follow-up?Giving encouragement to exercise,?BMI management provided?Yes.? ??Urinary Incontinence:?Urinary Incontinence?Assessment:?Absent,?Plan of care documented:?No, reason not specified.? * Follow Up:?prn * * Sign off status: Completed true * Provider:?Jay Guido MD Date:? 024 Generated for Naila arrington/Daniela/eTransmitting on:?08/07/2024 11:36 AM EDT History and Physical Notes * [...]
== END 2024-08-07 11:11 | disposition home or self-care (01) ==
LOC: HO.HCS 10:11
PROVIDERS: PCP Internal Medicine; Visit Provider Internal Medicine Cardiovascular Disease
DX: I48.19 Other persistent atrial fibrillation (principal); I50.30 Unspecified diastolic (congestive) heart failure; I10 Essential (primary) hypertension
CPT/HCPCS: 93010; 99214; G2211

== ENCOUNTER 2024-08-07 10:10 | Outpatient (REF) | payer MEDICARE, SELFPAY ==
[2024-08-07 12:35] LABS: Digoxin 0.5 ng/mL (0.8-2.0)
[2024-08-07 12:37] LABS: Anion Gap 10 (12-20); Blood Urea Nitrogen 17 mg/dL (9-16); Calcium 9.5 mg/dL (8.4-10.2); Carbon Dioxide 28 mmol/L (22-29); Chloride 108 mmol/L (96-108); Estimated Glomerular Filt Rate > 60; Glucose Random 98 mg/dL (60-115); Sodium 142 mmol/L (135-145)
[2024-08-07 12:41] LABS: B Type Natriuretic Peptide 125 pg/mL (<100)
== END 2024-08-07 10:11 | disposition home or self-care (01) ==
LOC: HO.LAB 10:10
PROVIDERS: PCP Internal Medicine; Visit Provider Internal Medicine Cardiovascular Disease
DX: I48.20 Chronic atrial fibrillation, unspecified (principal); I11.0 Hypertensive heart disease with heart failure; I50.30 Unspecified diastolic (congestive) heart failure; Z79.899 Other long term (current) drug therapy
CPT/HCPCS: 36415; 80048; 80162; 83880; 93005; 99212

== ENCOUNTER 2024-08-09 09:00 | Outpatient (REF) | payer MEDICARE, SELFPAY ==
--- OUTSIDE RECORDS SUMMARY | 2023-05-12 07:20 | XMS_ITS ---
Author Organization [facility] Address [address] [place] [address] Care Team Providers Care Collating Machine Operator Name Role Phone Darrell Sutherland MD Primary Care Provider Jay Talbot Unavailable [phone] Allergies No Known Allergies REASON FOR VISIT Rectal bleeding Medications Medication SIG (Take, Route, Frequency, Duration) Notes Start Date End Date Status Digoxin 250 MCG Oral for 30 Ac tive Losartan Potassium 50 MG Oral for 30 Active Atenolol 50 MG 1 tablet Orally Once a day Active Lovenox Active Vitamin D Active Social History Tobacco Use: Social History Observation Description Date Details (start date - stop date) Never Smoker NA - NA Tobacco Use/Smoking Question Answer Notes Patient is a nonsmoker Alcohol Screen Question Answer Notes Did you have a drink contain ing alcohol in the past year? Yes Points 1 Interpretation Negative How often did you have 6 or more drinks on one occasion in the past year? Never (0 point) How many drinks did you have on a typical day when you were drinking in the past year? 1 or 2 drinks (0 point) How often did you have a dri nk containing alcohol in the past year? Monthly or less (1 point) Section Notes: Nonsmoker; no sig alcohol Problems Problem Type SNOMED Code ICD Code Onset Dates Problem Status W/U Status Risk Notes Problem Gastrointestinal hemorrhage (97178770) Lower GI bleed (K92.2) Active confirmed Vital Signs Temperature 97.7 degrees Fahrenheit 05/12/19 24 Blood pressure systolic 00 mm Hg 05/12/19 24 Blood pressure diastolic 00 mm Hg 024 Height 60 in 05/12/2023 Weight 157 lbs 05/12/2023 BMI 30.66 kg/m2 05/12/2023 Encounters Encounter Location Date Provider Diagnosis [facility] [address] [place] [address] 05/12/2023 Jay Guido Lower GI bleed K92.2 Assessments Encounter Date Diagnosis (ICD Code) Assessment Notes Treatment Notes Treatment Clinical Notes Section Notes 05/12/2023 Lower GI bleed (ICD-10 - K92.2) You can use Lovenox and take the last dose the evening before the colonoscopy. Go to the ER if you have recurrent bleeding. Overall, Sudha appears quite well. She appears to be very stable since her episode of bleeding last week. Based on the clinical description and the drop in hemoglobin this may have been a self-limited bleed from diverticular disease. An episode of ischemic colitis would be a less likely cause of the bleeding. I doubt this was just bleeding from a hemorrhoid. Given that she had been feeling fine up until the day of her bleeding and has been feeling fine since then would tend to go against any type of significant process such as a neoplasm. However, given her significant bleeding with a drop in hemoglobin, her need to go on chronic anticoagulation, her last colonoscopy being just about 10 years ago, and her a very good clinical appearance despite her age of 82, I did recommend a colonoscopy by next week to fully evaluate things and definitively exclude any worrisome problems such as a significant colon polyp or colon cancer. I think that would be important to do prior to her starting her Coumadin. A colonoscopy will be scheduled for next week. In the meantime, I advised her to hold off on starting Coumadin and just continue her Lovenox up until the evening before the procedure. Full consent is obtained for the colonoscopy, including risks of bleeding and perforation. The procedure will be done with monitored anesthesia care. I did advise her that if she has recurrent significant bleeding in the interim she should go to the ER for evaluation. Sudha was comfortable with this plan. Thank you again for allowing me to participate in Sudha's care. I shall continue to keep you advised of her progress. Plan Of Treatment Treatment Notes Assessment Notes Lower GI bleed You can use Lovenox and take the last dose the evening before the colonoscopy. Go to the ER if you have recurrent bleeding. Future Test Test Name Order Date COLONOSCOPY 05/12/2023 Next Appt Details Follow Up: prn, Reason: Progress Notes * SUDHA GEORGE EDOB:[birth year] (82 yo F)Acc No.[id number]:05/12/2023 Progress Notes Patient: SUDHA BARAJAS Provider: Jeniffer Guido MD :1940 A ge:82 Y S ex:Female Date:05/12/2023 Address:[address] [place] [address] [id number] Pcp:Darrell Sutherland MD Subjective: * Chief Complaints: * R ectal bleeding * HPI: i ncontinence: I saw Sudha in consultation today in regard to further evaluation of her recent rectal bleeding and anemia. I last saw Sudha in 2013 at which time she underwent a negative screening colonoscopy other than the finding of some diverticulosis and hemorrhoids. She had been doing very well from a GI standpoint until just last Tuesday, May 03. At that time she had the sudden urge to have a bowel movement and when she went to the bathroom passed primarily bright red blood. She describes that this lasted off and on for about 2 hours until the bleeding stopped. She denies any associated lightheadedness, syncope, melena, nausea, vomiting, nor abdominal pain. Since that episode she has had no further bleeding and her stools have returned to normal. They have been brown and formed. She did have a CBC the very following day after the bleeding and this was somewhat lower than her baseline with a hemoglobin of 12.1 on May 04 compared to a hemoglobin of 13.9 in December of 2022. A s you know, she was diagnosed with atrial fibrillation toward the end of 2022 and was started on Eliquis in February. She did have an attempted cardioversion for atrial fibrillation but this was not successful. She had been on Eliquis up until the recent episode of bleeding and subsequently has been off of that. She has now been on Lovenox for the past 2 days and tells me the plan is to start eventual Coumadin. She has not had any sign of bleeding since being on Lovenox. She is not using any aspirin or NSAIDs. S he otherwise feels well. She enjoys a good appetite, without any significant heartburn or dysphagia. She denies abdominal pain, jaundice, nor unintentional weight loss. She denies any known family history of colon cancer. * ROS: G eneral/Constitutional: Change in appetite d enies. C hills d enies. F atigue d enies. O phthalmologic: Patient denies Negative.. E NT: Patient denies N egative.. R espiratory: Patient denies N o coughing/hemoptysis.. C ardiovascular: Patient denies No chest pain/orthopnea.. G astrointestinal: Comments S [facility] for details. G enitourinary: Patient denies No dysuria/hematuria.. M usculoskeletal: Patient denies No specific arthralgias/myalgias.. ? S kin: Patient denies N o rash/pruritus.. N eurologic: Patient denies No headaches/seizures.. P sychiatric: Patient denies N egative.. * Medical History: * Surgical History: K nee surgery Cholecystectomy 2010 * Hospitalization/Major Diagno stic Procedure: N o Hospitalization History. * Family History: F ather: , diagnosed with HTN (hypertension), Heart disease. M other: , diagnosed with HTN (hypertension). No colorectal cancer. * Social History: T obacco Use: T obacco Use/Smoking P atient is a n onsmoker. D rugs/Alcohol: A lcohol Screen D id you have a drink containing alcohol in the past year? Y es, H ow often did you have 6 or more drinks on one occasion in the past year? N ever (0 point), H ow many drinks did you have on a typical day when you were drinking in the past year? 1 or 2 drinks (0 point), H ow often did you have a drink containing alcohol in the past year? M onthly or less (1 point), P oints 1 , I nterpretation N egative. M iscellaneous: M arital status: . 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 N onsmoker; no sig alcohol. * Medications: T akingVitamin D Lovenox Atenolol 50 MG Tablet 1 tablet Orally Once a dayLosartan Potassium 50 MG Tablet Oral Digoxin 250 MCG Tablet Oral Taking Vitamin D Taking Lovenox Taking Atenolol 50 MG Tablet 1 tablet Orally Once a dayTaking Losartan Potassium 50 MG Tablet Oral Taking Digoxin 250 MCG Tablet Oral DiscontinuedMoviPrep 100 GM Solution Reconstituted as directed Orally as directedMedication List reviewed and reconciled with the patientDiscontinued MoviPrep 100 GM Solution Reconstituted as directed Orally as directedMedication List reviewed and reconciled with the patient * Allergies: N .K.D.A.yes[Allergies Verified] Objective: * Vitals: W t: 157 lbs, Ht: 60 in, BMI:30.66 Index, BP: 00/00 mm Hg, Temp: 97.7. * Examination: G eneral Examination: GENERAL APPEARANCE: p leasant, well nourished, well developed, in no acute distress. EYES: s clera non-icteric. ORAL CAVITY: m ucosa moist. NECK/THYROID: n o cervical lymphadenopathy, neck supple.? SKIN: n onjaundiced, no spider angiomata.. HEART: S 1, S2 normal. LUNGS: c lear to auscultation bilaterally. ABDOMEN: n ormal bowel sounds, no guarding or rigidity, no hepatosplenomegaly, no masses palpable, soft, nontender, nondistended.. EXTREMITIES: n o edema. NEUROLOGIC: a lert and oriented. Assessment: * Assessment: 1. Michaela cates GI bleed - K92.2 (Primary) Overall, Sudha appears quite well. She appears to be very stable since her episode of bleeding last week. Based on the clinical description and the drop in hemoglobin this may have been a self-limited bleed from diverticular disease. An episode of ischemic colitis would be a less likely cause of the bleeding. I doubt this was just bleeding from a hemorrhoid. Given that she had been feeling fine up until the day of her bleeding and has been feeling fine since then would tend to go against any type of significant process such as a neoplasm. However, given her significant bleeding with a drop in hemoglobin, her need to go on chronic anticoagulation, her last colonoscopy being just about 10 years ago, and her a very good clinical appearance despite her age of 82, I did recommend a colonoscopy by next week to fully evaluate things and definitively exclude any worrisome problems such as a significant colon polyp or colon cancer. I think that would be important to do prior to her starting her Coumadin. A colonoscopy will be scheduled for next week. In the meantime, I advised her to hold off on starting Coumadin and just continue her Lovenox up until the evening before the procedure. Full consent is obtained for the colonoscopy, including risks of bleeding and perforation. The procedure will be done with monitored anesthesia care. I did advise her that if she has recurrent significant bleeding in the interim she should go to the ER for evaluation. Sudha was comfortable with this plan. Thank you again for allowing me to participate in Sudha's care. I shall continue to keep you advised of her progress. Plan: * Treatment: Notes: You can use Lovenox and take the last dose the evening before the colonoscopy. Go to the ER if you have recurrent bleeding.?? * Procedure Codes: 1 036F TOBACCO [id number] BP SCR NOT PRFRM REC REASON NOS * Preventive Medicine: Counseling: C are goal follow-up plan: A lelia Normal BMI Follow-up G iving encouragement to exercise, B IN management provided Y es. Urinary Incontinence: U rinary Incontinence A ssessment: A bsent, P aubrey of care documented: N o, reason not specified. * Follow Up: p rn * * Sign off status: Completed true * Provider: Jeniffer Guido MD Date: 0 05/12/2023 Generated for Naila arrington/Daniela/Toniransmitting on: 0 08/10/2024 09:09 AM EDT History and Physical Notes * HPI (History of Present Illness) Category Sub-Category Detail Notes Category Not es incontinence I saw Sudha in consultation today in regard to further evaluation of her recent rectal bleeding and anemia. I last saw Sudha in 2013 at which time she underwent a negative screening colonoscopy other than the finding of some diverticulosis and hemorrhoids. She had been doing very well from a GI standpoint until just last May 03. At that time she had the sudden urge to have a bowel movement and when she went to the bathroom passed primarily bright red blood. She describes that this lasted off and on for about 2 hours until the bleeding stopped. She denies any associated lightheadedness, syncope, melena, nausea, vomiting, nor abdominal pain. Since that episode she has had no further bleeding and her stools have returned to normal. They have been brown and formed. She did have a CBC the very following day after the bleeding and this was somewhat lower than her baseline with a hemoglobin of 12.1 on May 04 compared to a hemoglobin of 13.9 in December of 2022. As you know, she was diagnosed with atrial fibrillation toward the end of 2022 and was started on Eliquis in February. She did have an attempted cardioversion for atrial fibrillation but this was not successful. She had been on Eliquis up until the recent episode of bleeding and subsequently has been off of that. She has now been on Lovenox for the past 2 days and tells me the plan is to start eventual Coumadin. She has not had any sign of bleeding since being on Lovenox. She is not using any aspirin or NSAIDs. She otherwise feels well. She enjoys a good appetite, without any significant heartburn or dysphagia. She denies abdominal pain, jaundice, nor unintentional weight loss. She denies any known family history of colon cancer. Examination Category Sub-Category Detail Notes Category Not es General Examination GENERAL APPEARANCE: pleasant , well nourished, well developed, in no acute distress EYES: sclera non-icteric NECK/THYROID: no cervical lymphade nopathy, neck supple HEART: S1, S2 normal LUNGS: clear to auscultatio n bilaterally ABDOMEN: normal bowel sounds, no guarding or rigidity, no hepatosplenomegaly, no masses palpable, soft, nontender, nondistended. NEUROLOGIC: alert and oriented SKIN: nonjaundiced, no spi tammie angiomata. EXTREMITIES: no edema ORAL CAVITY: mucosa moist
== END 2024-08-09 09:01 | disposition home or self-care (01) ==
LOC: HO.HOSX 09:00
PROVIDERS: Visit Provider Orthopaedic Surgery
DX: Z13.89 Encounter for screening for other disorder (principal)

== ENCOUNTER 2024-08-23 09:11 | Outpatient (AMB) | payer MEDICARE, SELFPAY ==
--- OUTSIDE RECORDS SUMMARY | 2023-05-19 10:00 | XMS_ITS ---
Author Organization [facility] Address [address] [place] [address] Care Team Providers Care Skilled Labor Name Role Phone Darrell Sutherland MD Primary Care Provider Unavaila Jay Bailey Unavailable [phone] REASON FOR VISIT lower GI bleed Problems Problem Type SNOMED Code ICD Code Onset Dates Problem Status W/U Status Risk Notes Problem Diverticular disease of colon (193396099) Diverticulosis of large intestine without perforation or abscess without bleeding (K57.30) Active confirmed Encounters Encounter Location Date Provider Diagnosis [facility] Outpatient [address] [place] [phone] 05/19/2023 Jay Guido Colon polyps K63.5 ; [...] ROLAN GEORGE EDOB:[birth year] (83 yo F)Acc No.[id number]:05/19/2023 COLON WITH MAC Patient: Judy PALACIOSROLAN INIGUEZ Provider: Jeniffer Guido MD :1940 A ge:82 Y S ex:Female Date:05/19/2023 Address:[address] [place] [address], [id number] Pcp:Darrell Sutherland MD Subjective: * Chief Complaints: [...] 05/19/2023 Generated for Naila arrington/Daniela/Vanceitting on: 0 08/23/2024 09:26 AM EDT
--- OUTSIDE RECORDS SUMMARY | 2024-08-23 09:27 | XMS_ITS | Patient Health Record ---
Author Organization [facility] Address [address] [place] [address] Care Team Providers Care Peanut Butter Maker Name Role Phone Darrell Sutherland MD Primary Care Provider Dylon Leary Unavailable [phone] Allergies Allergen (clinical drug ingredient) Drug/Non Drug Allergy documented on EMR Reaction Allergy Type Onset Date Status Latex Latex rash Allergy Active Reason For Referral No Information Medications Medication SIG (Take, Route, Frequency, Duration) Notes Start Date End Date Status Aleve Active Atenolol 25 MG 1 tablet Orally Once a day; Duration: 30 day(s) Active Vitamin D Active hydroCHLOROthiazide [...] Status Risk Notes Problem Acquired hallux valgus (48051186) Hallux valgus (acquired), left foot (M20.12) Active confirmed Problem Acquired hallux valgus (60415293) Hallux valgus (acquired), right foot (M20.11) Active confirmed Problem Acquired hammer toe of right foot (1263149301945 105) Other hammer toe(s) (acquired), right foot (M20.41) Active confirmed Problem Acquired hammer toe of left foot (6179552929183 103) Other hammer toe(s) (acquired), left foot (M20.42) Active confirmed Plan Of Treatment Pending Test Test Name Order Date X ray : Foot, right 3V 06/05/2020 Insurance Providers Payer Name Payer Address Payer Phone Subscriber Number Group Number Insured Name Patient Relationship to Insured Coverage Start Date Coverage End Date Medicare National Govt [employer] [address] [place] [address] [id number] Sudha Meek Self - patient is the insured [employer] [address] [place] [address] [id number] Sudha Meek Self - patient is the insured Medical (General) History Medical History History ICD Code High blood pressure Surgical History Surgery Date(Month/Year) right knee replacement 10/2016
--- OUTSIDE RECORDS SUMMARY | 2024-08-23 09:27 | XMS_ITS | Clinical Summary ---
Author Organization [facility] Address [address] [place] [address] Phone Care Team Providers Care Property Controller Name Role Phone Darrell Sutherland MD Primary Care Provider [phone] Surgical History Surgery Date Site/Laterality Comments US [...] PM EST [facility]ointment [facility] at [address] [address] Health Maintenance Due Date Last [...] [facility] Care Teams Property Controller Relationship Specialty Start Date End Date Darrell Sutherland MD [address] [place] [id number] PCP - General Internal Medicine 12/12/23
[2024-08-23 09:47] LABS: Prothrombin Time Whole Bld POC 42.7 sec (11.1-13.5); ~PT, ~INR - Anti Coag Clinic 3.6 (0.9-1.1)
--- NOTE | 2024-08-23 09:54 | MHC.OFFVISCO ---
Intake Intake Visit Reasons: Anticoagulation Allergies amlodipine Allergy (Intermediate, Verified 08/23/24 09:37) Difficulty Breathing latex (LATEX) Allergy (Intermediate, Verified 08/23/24 09:37) RASH seasonal Allergy (Intermediate, Uncoded 08/23/24 09:37) Sneezing altace Adverse Reaction (Mild, Uncoded 08/23/24 09:37) Cough Medication List - Last Reconciled 08/23/24 by Tricia Kilgore RN atenolol 50 mg PO BID cholecalciferol (vitamin D3) 25 mcg PO DAILY digoxin 125 mcg PO DAILY furosemide (Lasix) 20 mg PO DAILY PRN losartan 50 mg PO DAILY Held on 08/07/24. Instructions: Doctor's Order Oxygen Home Use As directed warfarin 5 mg See Protocol PO DAILY Nursing Note INR: 3.6 out of therapeutic range of 2-3 Medications and supplements reviewed Patient status: feels well Medications or supplements: no changes Diet: usual diet for pt Denies any signs and symptoms of bleeding or clotting or unusual bruising Bleeding, bruising, clotting discussed Nutritional guidance given: to have a serving of greens today Dose: decrease today's dose to 5mg (7.5mg) then 7.5mg X 4 days and 5mg X 3 days (M/W/F) F/U INR Date: 2 weeks? Patient verbalizing understanding of instructions given. 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 Illness/Depression: No Coding Level of Care Code Est Patient Level 1 Diagnoses Current use of anticoagulant therapy Z79.01 Assessment & Plan Assessment & Plan (1) Current use of anticoagulant therapy: Code(s): Z79.01 - termite exterminator (current) use of anticoagulants Category: Medical
== END 2024-08-23 09:59 | disposition home or self-care (01) ==
LOC: HO.ACS 09:11
PROVIDERS: PCP Internal Medicine; Visit Provider Internal Medicine Medical Oncology
DX: Z79.01 Long term (current) use of anticoagulants (principal)

== ENCOUNTER → 2024-08-23 09:11 | Outpatient (BNVA) | payer MEDICARE, SELFPAY | PROVIDERS: PCP Internal Medicine; Visit Provider Internal Medicine Medical Oncology | DX: I48.19 Other persistent atrial fibrillation (principal); I26.99 Other pulmonary embolism without acute cor pulmonale; Z79.01 Long term (current) use of anticoagulants; Z51.81 Encounter for therapeutic drug level monitoring | CPT/HCPCS: 85610; 99211 ==

== ENCOUNTER 2024-09-05 08:23 | Outpatient (AMB) | payer MEDICARE, SELFPAY ==
--- OUTSIDE RECORDS SUMMARY | 2023-05-19 10:00 | XMS_ITS ---
Author Organization [facility] Address [address] [place] [address] Care Team Providers Care Muffler Installer Name Role Phone Darrell Sutherland MD Primary Care Provider Unavaila Jay Bailey Unavailable [phone] REASON FOR VISIT lower GI bleed Problems Problem Type SNOMED Code ICD Code Onset Dates Problem Status W/U Status Risk Notes Problem Diverticular disease of colon (621308479) Diverticulosis of large intestine without perforation or abscess without bleeding (K57.30) Active confirmed Encounters Encounter Location Date Provider Diagnosis [facility] [place] [address] [place] [phone] 05/19/2023 Jay Guido Colon polyps K63.5 ; [...] ROLAN GEORGE EDOB:[birth year] (83 yo F)Acc No.[id number]:05/19/2023 COLON WITH MAC Patient: Judy ROLAN ROGER Provider: Jeniffer Guido MD :1940 A ge:82 Y S ex:Female Date:05/19/2023 Address:[address] [place] [address], [place] Pcp:Darrell Sutherland MD Subjective: * Chief Complaints: [...] 05/19/2023 Generated for Naila arrington/Daniela/Vanceitting on: 0 09/05/2024 08:27 AM EDT
--- OUTSIDE RECORDS SUMMARY | 2024-09-05 08:28 | XMS_ITS | Clinical Summary ---
Author Organization [facility] Address [address] [place] [address] Phone Care Team Providers Care Shotgun Shell Assembly Machine Adjuster Name Role Phone Darrell Sutherland MD Primary Care Provider [phone] Surgical History Surgery Date Site/Laterality Comments US [...] PM EST [facility]ointment [facility] at [address] [address] Health Maintenance Due Date Last [...] 2024 11/07/2023, 12/16/2022, 01/22/2022, Additional history exists Influenza Vaccine (#1) 2024 , 11/27/2022, 12/07/2021, Additional history exists DTaP,Tdap,and Td Vaccines (2 - Td or Tdap) 01/21/2026 01/22/2016 Pneumococcal Vaccine: 50+ Years Completed 01/25/2022, 01/07/2015, 11/24/2010 RSV Immunization Adult Patients Completed 02/22/2023 HIB Vaccines Aged Out No longer eligi [...] age to complete this topic Insurance MEDICARE [facility] Care Teams Shotgun Shell Assembly Machine Adjuster Relationship Specialty Start Date End Date Darrell Sutherland MD [address] [place] [address] PCP - General Internal Medicine 12/12/23
--- OUTSIDE RECORDS SUMMARY | 2024-09-05 08:28 | XMS_ITS | Patient Health Record ---
Author Organization [facility] Address [address] [place] [address] Care Team Providers Care Internal Medicine Physician Assistant Name Role Phone Darrell Sutherland MD Primary Care Provider Dylon Leary Unavailable [phone] Allergies Allergen (clinical drug ingredient) Drug/Non Drug [...] Status Risk Notes Problem Acquired hallux valgus (13562407) Hallux valgus (acquired), left foot (M20.12) Active confirmed Problem Acquired hallux valgus (26706027) Hallux valgus (acquired), right foot (M20.11) Active confirmed Problem Acquired hammer toe of right foot (6738927809073 105) Other hammer toe(s) (acquired), right foot (M20.41) Active confirmed Problem Acquired hammer toe of left foot (0205746602285 103) Other hammer toe(s) (acquired), left foot (M20.42) Active confirmed Plan Of Treatment Pending Test Test Name Order Date X ray : Foot, right 3V 06/05/2020 Insurance Providers Payer Name Payer Address Payer Phone Subscriber Number Group Number Insured Name Patient Relationship to Insured Coverage Start Date Coverage End Date Medicare National Govt Svcs Inc [address] [place] [address] [id number] Sudha Meek Self - patient is the insured [employer] [address] [place] [address] [id number] Sudha Meek Self - patient is the insured Medical (General) History Medical History History ICD Code High blood pressure Surgical History Surgery Date(Month/Year) right knee replacement 10/2016
[2024-09-05 08:37] VITALS: BMI 30.9
--- NOTE | 2024-09-05 08:37 | A.OFFVIS_ITS ---
Vital Signs 09/05/24 08:37 Height 5 ft Weight 158 lb BMI 30.9 Intake Visit Reasons: New prob LT knee pain Intake Note: Sudha is an 83 year old female who presents with complaints of progressively worsening left knee pain. The patient did undergo right total knee replacement surgery by Dr. Mercer in 2017. She reports minimal discomfort in her right knee. She describes her left knee pain as sharp in nature. Her left knee pain has gotten worse over the last few years spite of continued non operative treatments. She has had cortisone injections in the past. The most recent cortisone injection gave her minimal relief. She has failed the last 3 months of conservative treatment which has included physical therapy exercises, a home exercise program and Tylenol. She is not able to take anti-inflammatory medicines because she is on Eliquis. At this point her left knee pain is interfering with her activities of daily living and her ability to sleep well through the night. Allergies amlodipine Allergy (Intermediate, Verified 09/05/24 08:45) Difficulty Breathing latex (LATEX) Allergy (Intermediate, Verified 09/05/24 08:45) RASH seasonal Allergy (Intermediate, Uncoded 09/05/24 08:45) Sneezing altace Adverse Reaction (Mild, Uncoded 09/05/24 08:45) Cough Medication List - Last Reconciled 09/05/24 by Giovany Abraham MD atenolol 50 mg PO BID cholecalciferol (vitamin D3) 25 mcg PO DAILY digoxin 125 mcg PO DAILY furosemide (Lasix) 20 mg PO DAILY PRN olmesartan 20 mg PO DAILY Oxygen Home Use As directed warfarin 5 mg See Protocol PO DAILY [facility] Medical History Pulmonary nodules Pulmonary embolism History of kidney disease Pulmonary nodule Renal cell cancer Renal cell carcinoma of right kidney Chronic respiratory failure with hypoxia Pneumonitis ILD (interstitial lung disease) Surgical History History of right knee surgery (~10/2016) History of History of cholecystectomy Social History Household Members: None Housing: Condominium Do you presently have visiting nurse or other home services: No Alcohol intake: former Patient Tobacco Use Status: Former Tobacco user Tobacco use type: Cigarette Years Smoked: 5 Advance Directives Date on File: 12/01/22 service: No Physical Exam Vital Signs: BMI result Body Mass Index 30.9 Const Other: Well-nourished well-developed very friendly female awake alert and oriented x3 in no acute distress Extrem Other: Bilateral lower extremity examination shows good capillary refill, no skin lesions noted, normal sensation light touch Left knee examination shows a minimal effusion, palpable crepitus with range of motion, pain with range of motion, no instability Results Reviewed Results Reviewed: X-rays of the patient's left knee taken today show joint space narrowing, subchondral sclerosis, no acute bony abnormalities Assessment & Plan Assessment & Plan (1) Osteoarthritis of left knee: Code(s): M17.12 - Unilateral primary osteoarthritis, left knee Category: Medical Plan Ms. Meek presents with left knee pain due to osteoarthritis. I had a lengthy discussion with the patient regarding the treatment options. She wishes to hold off on total knee replacement surgery for as long as possible. I agree with this plan. She has had cortisone injections in the past which gave her minimal relief. Thus, I will see if the patient's insurance company will cover a viscosupplementation injection such as Durolane. I will see her back once the injection is available. Feel free to call me at any time should questions regarding her orthopedic management arise. I spent 21 minutes in reviewing the patient's records and imaging studies, seeing the patient and documenting in the medical record. Orders: Orders XR knee LT 3V Today M25.562 - Pain in left knee Coding Level of Care Code Est Pt Level 3 (80066) Complex EM visit Add On G2211 Diagnoses Osteoarthritis of left knee M17.12
== END 2024-09-05 09:02 | disposition home or self-care (01) ==
LOC: HO.HOS 08:24
PROVIDERS: PCP Internal Medicine; Visit Provider Orthopaedic Surgery
DX: M17.12 Unilateral primary osteoarthritis, left knee (principal)
CPT/HCPCS: 99213; G2211

== ENCOUNTER → 2024-09-05 08:32 | Outpatient (BNV) | payer MEDICARE, SELFPAY | PROVIDERS: Visit Provider Radiology Diagnostic Radiology | DX: M17.12 Unilateral primary osteoarthritis, left knee (principal) | CPT/HCPCS: 73562 ==

== ENCOUNTER 2024-09-05 08:43 | Outpatient (REF) | payer MEDICARE, SELFPAY ==
--- OUTSIDE RECORDS SUMMARY | 2023-05-19 10:00 | XMS_ITS ---
Author Organization [facility] Address [address] [place] [address] Care Team Providers Care Attraction Attendant Name Role Phone Darrell Sutherland MD Primary Care Provider Unavaila Jay Bailey Unavailable [phone] REASON FOR VISIT lower GI bleed Problems Problem Type SNOMED Code ICD Code Onset Dates Problem Status W/U Status Risk Notes Problem Diverticular disease of colon (722978555) Diverticulosis of large intestine without perforation or abscess without bleeding (K57.30) Active confirmed Encounters Encounter Location Date Provider Diagnosis [facility] [place] [address] [place] [phone] 05/19/2023 Jay Guido Colon polyps K63.5 ; [...] ROLAN GEORGE EDOB:[birth year] (83 yo F)Acc No.[id number]:05/19/2023 COLON WITH MAC Patient: Judy ROLAN ROGER Provider: Jeniffer Guido MD :1940 A ge:82 Y S ex:Female Date:05/19/2023 Address:[address] [place] [address], [id number] Pcp:Darrell Sutherland MD Subjective: * Chief Complaints: [...] 05/19/2023 Generated for Naila arrington/Daniela/Vanceitting on: 0 09/06/2024 08:54 AM EDT
--- NOTE | ~2024-09-05 | XR_ITS ---
EXAMINATION: XR KNEE, LEFT CLINICAL INFORMATION: M25.562 - Pain in left knee COMPARISON: None available. TECHNIQUE: AP lateral and sunrise view of the left knee. FINDINGS: Joint space narrowing with sclerosis along the articular surface and small marginal osteophyte formation involving the medial compartment. There is chondrocalcinosis in the lateral compartment. No suprapatellar bursa joint effusion. No acute cortical disruption or malalignment. Osteopenia versus osteoporosis. Vascular calcifications. No lytic or blastic lesions. XR/XR knee LT 3V IMPRESSION: Tricompartmental osteoarthrosis severe in the medial compartment. Atherosclerosis disease, peripheral. Electronically signed by: Messi Patterson MD 09/05/2024 09:04 AM EDT
--- OUTSIDE RECORDS SUMMARY | 2024-09-06 08:55 | XMS_ITS | Clinical Summary ---
Author Organization [facility] Address [address] [place] [address] Phone Care Team Providers Care Nurse Anesthesia Program Director Name Role Phone Darrell Sutherland MD Primary Care Provider Surgical History Surgery Date Site/Laterality Comments US [...] PM EST [facility]ointment [facility] at [address] [address] Health Maintenance Due Date Last [...] age to complete this topic Insurance MEDICARE [facility] Care Teams Nurse Anesthesia Program Director Relationship Specialty Start Date End Date Darrell Sutherland MD [address] [place] [address] PCP - General Internal Medicine 12/12/23
--- OUTSIDE RECORDS SUMMARY | 2024-09-06 08:55 | XMS_ITS | Patient Health Record ---
Author Organization [facility] Address [address] [place] [address] Care Team Providers Care Special Agent Secret Service Name Role Phone Darrell Sutherland MD Primary Care Provider Dylon Leary Unavailable [phone] Allergies Allergen (clinical drug ingredient) Drug/Non Drug [...] Status Risk Notes Problem Acquired hallux valgus (19288788) Hallux valgus (acquired), left foot (M20.12) Active confirmed Problem Acquired hallux valgus (93834191) Hallux valgus (acquired), right foot (M20.11) Active confirmed Problem Acquired hammer toe of right foot (5677109510580 105) Other hammer toe(s) (acquired), right foot (M20.41) Active confirmed Problem Acquired hammer toe of left foot (2534921423483 103) Other hammer toe(s) (acquired), left foot (M20.42) Active confirmed Plan Of Treatment Pending Test Test Name Order Date X ray : Foot, right 3V 06/05/2020 Insurance Providers Payer Name Payer Address Payer Phone Subscriber Number Group Number Insured Name Patient Relationship to Insured Coverage Start Date Coverage End Date Medicare National Govt Svcs Inc [address] [place] [address] [id number] Sudha Meek Self - patient is the insured Medex Blue Transfer To [address] [place] [address] [id number] Sudha Meek Self - patient is the insured Medical (General) History Medical History History ICD Code High blood pressure Surgical History Surgery Date(Month/Year) right knee replacement 10/2016
== END 2024-09-05 08:44 | disposition home or self-care (01) ==
LOC: HO.HOSX 08:43
PROVIDERS: Visit Provider Orthopaedic Surgery
DX: M17.12 Unilateral primary osteoarthritis, left knee (principal); M25.562 Pain in left knee; Z79.899 Other long term (current) drug therapy; Z96.651 Presence of right artificial knee joint
CPT/HCPCS: 73562; 99212

== ENCOUNTER 2024-09-10 10:21 | Outpatient (AMB) | payer MEDICARE, SELFPAY ==
[2024-09-10 10:43] LABS: Prothrombin Time Whole Bld POC 43.8 sec (11.1-13.5); ~PT, ~INR - Anti Coag Clinic 3.7 (0.9-1.1)
--- NOTE | 2024-09-10 10:46 | MHC.OFFVISCO ---
Intake Intake Visit Reasons: Anticoagulation Allergies amlodipine Allergy (Intermediate, Verified 09/05/24 08:45) Difficulty Breathing latex (LATEX) Allergy (Intermediate, Verified 09/05/24 08:45) RASH seasonal Allergy (Intermediate, Uncoded 09/05/24 08:45) Sneezing altace Adverse Reaction (Mild, Uncoded 09/05/24 08:45) Cough Nursing Note INR 3.7?? out of therapeutic range Medications and supplements reviewed Patient status: has been eating less greens and less over all due to heat did not feel like cooking Medications or supplements: off losartan and now taking olmesartab Diet: eating less overall due to heat and has had less greens Denies any signs and symptoms of bleeding or clotting or unusual bruising Bleeding, bruising, clotting discussed Nutritional guidance given: resume weekly greens Dose: hold today's dose, then resume usual dose 5mg x 3 days / 7.5mg x 4 days F/U INR Date: 2 weeks If still elevated decrease weekly dose for the Summer ?? Patient verbalizing understanding of instructions given. 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 Illness/Depression: No Coding Level of Care Code Est Patient Level 1 Diagnoses Current use of anticoagulant therapy Z79.01 Results AMB INR Fingerstick AMB INR Fingerstick 3.7 Last Edit by Farheen Pruett RN on 09/10/24 10:33 GHAZALA Jennings ENTRY Assessment & Plan Assessment & Plan (1) Current use of anticoagulant therapy: Code(s): Z79.01 - terminal computer operator (current) use of anticoagulants Category: Medical
--- OUTSIDE RECORDS SUMMARY | 2024-09-10 11:19 | XMS_ITS | Encounter Summary ---
Author Organization [facility] Address [address] [employer] [address] [address] Phone Care Team Providers Care Strategy Intern Name Role Phone Darrell Sutherland MD Primary Care Provider Darrell Sutherland MD Unavailable [phone] Travis Monge MD Unavailable Melanie Henson RN Unavailable [phone] Encounter Details Date Type Department Care Team (Late st Contact Info) Description 07/20/2022 Procedure Pass [facility], [address] [address] Social History Tobacco Use Types Packs/Day Years Used Date Smoking Tobacco: Never Smokeless Tobacco: Never Alcohol Use Standard Drinks/Week Comments No 0 (1 standard drink = 0.6 oz pur e alcohol) Education Answer Date Recorded Are you interested in more education? Not on paulette e 06/17/2022 Are you concerned about learning? Not on file 06/17/2022 No 06/17/2022 No 06/17/2022 Digital Access Answer Date Recorded No 07/15/2022 No 07/15/2022 Reliable internet access at home? Not on file 07/15/2022 Device with a working camera? Not on file Comments No Sex and Gender Information Value Date Recorded Sex Assigned at Not on file Legal Sex Female 10:10 PM EDT Gender Identity Not on file Sexual Orientation Not on file documented as of this encounter Plan of Treatment Upcoming Encounters Date Type Department Care Team (Latest Contact Info) Description 07/12/2024 Procedure Pass [address] [address] 09/19/2024 11:30 AM EDT Office Visit [facility] Internal Medicine [address] [place] [address] Darrell Sutherland MD [address] [place] [address] 07/10/2025 11:10 AM EDT Appointment [address] [address] Ciro Kelley MD [address] [place] [address] [email or web address] 07/10/2025 12:00 PM EDT Appointment [facility], X-Ray - [address] [address] Ciro Kelley MD [address] [place] [address] [email or web address] 07/16/2025 3:00 PM EDT Telemedicine - audio only [facility] Radiology [facility] [address] [facility], [address]rd Floor, [place] [address] Ciro Kelley MD [address] [place] [address] [email or web address] documented as of this encounter Visit Diagnoses Not on filedocumented in this encounter Additional Health Concerns Infection Onset Date Last Indicated Resolved Time CoV-Risk 07/13/2023 07/13/2023 07/24/2023 1:22 AM EDT Assessment Noted Time PHQ-2 Depression Total Score: 0 01/26/20 12:55 PM EST documented as of this encounter Care Teams Strategy Intern Relationship Specialty Start Date End Date Darrell Sutherland MD [address] [place] [address] PCP - General Internal Medicine 01/11/17 Darrell Sutherland MD [address] [place] [address] Insurance Assigned Provider 05/28/23 Travis Monge MD [address] [place] [address] Pulmonary Disease 06/01/22 Melanie Henson, RN [address] [place] [address] [phone] [email or web address] Physician Practice Manager 09/19/23 10/24/23 documented as of this encounter Additional Source Comments The information contained in this document represents components of the legal health record. It is not the complete legal health record.[facility]
--- OUTSIDE RECORDS SUMMARY | 2024-09-10 11:19 | XMS_ITS | Patient Health Record ---
Author Organization [facility] Address [address] [place] [address] Care Team Providers Care Mirror Framer Name Role Phone Darrell Sutherland MD Primary Care Provider Dylon Leary Unavailable [phone] Allergies Allergen (clinical drug ingredient) Drug/Non Drug [...] Status Risk Notes Problem Acquired hallux valgus (66212152) Hallux valgus (acquired), left foot (M20.12) Active confirmed Problem Acquired hallux valgus (44075710) Hallux valgus (acquired), right foot (M20.11) Active confirmed Problem Acquired hammer toe of right foot (0368966780701 105) Other hammer toe(s) (acquired), right foot (M20.41) Active confirmed Problem Acquired hammer toe of left foot (9347560462141 103) Other hammer toe(s) (acquired), left foot (M20.42) Active confirmed Plan Of Treatment Pending Test Test Name Order Date X ray : Foot, right 3V 06/05/2020 Insurance Providers Payer Name Payer Address Payer Phone Subscriber Number Group Number Insured Name Patient Relationship to Insured Coverage Start Date Coverage End Date Medicare National Govt Svcs Inc [address] [place] [address] [id number] Sudha Meek Self - patient is the insured [employer] [address] [place] [address] [id number] Sudha Meek Self - patient is the insured Medical (General) History Medical History History ICD Code High blood pressure Surgical History Surgery Date(Month/Year) right knee replacement 10/2016
--- OUTSIDE RECORDS SUMMARY | 2024-09-10 11:20 | XMS_ITS | Patient Health Record ---
Author Organization [facility] Address [address] [place] [address] Care Team Providers Care Applications System Analyst Name Role Phone Darrell Sutherland MD Primary Care Provider Jay Talbot Unavailable [phone] Allergies No Known Allergies Reason For Referral [...] Risk Notes Problem Diverticular disease of colon (112012460) Diverticulosis of large intestine without perforation or abscess without bleeding (K57.30) Active confirmed Problem Gastrointestinal hemorrhage (26336429) Lower GI bleed (K92.2) Active confirmed Plan Of Treatment Future Test Test Name Order Date COLONOSCOPY 02/27/2013 COLONOSCOPY 05/12/2023 Insurance Providers Payer Name Payer Address Payer Phone Subscriber Number Group Number Insured Name Patient Relationship to Insured Coverage Start Date Coverage End Date MEDICARE OF [place] [address] [facility] [place] [address] [phone] [id number] ROLAN GEORGE Self - patient is the insured [employer] [address] [place] [address] [phone] [id number] ROLAN GEORGE Self - patient is the insured Medical (General) History Medical History History ICD Code Choledocholithiasis--removed via ERCP in 02/2010 prior to Lap [facility] Hypertension Denies AR,DM,CVA,renal disease AFIB - Dr. Ryan--Unsuccessful cardiover shanthi 02/2023 Interstitiail lung disease-Dr. Monge --sleeps with oxygen Ablation of a cancer in the right kidney 05/2022 at [facility] Negative colonoscopy in 06/2013 Lower GI bleed 05/04/2023 Surgical History Surgery Date(Month/Year) Knee surgery Cholecystectomy 2010
--- OUTSIDE RECORDS SUMMARY | 2024-09-10 11:20 | XMS_ITS | Clinical Summary ---
Author Organization [facility] Address [address] [place] [address] Phone Care Team Providers Care Relay Assembler Name Role Phone Darrell Sutherland MD Primary Care Provider [phone] Surgical History Surgery Date Site/Laterality Comments US [...] PM EST [facility]ointment [facility] [address] [address] Health Maintenance Due Date Last Done Comments Zoster Vaccines (1 of 2) 01/16/2009 11/21/2008 Cholesterol Screening (Lipid Panel) 01/24/2022 Falls Risk Assessment 01/24/2022 Medicare Annual Wellness Visit 01/24/2022 Osteoporosis Screening (Bone Density Screening) 01/24/2022 Social Influencers of Health Screening 01/24/2022 Depression Screening 02/22/2024 Hypertension/CHF/CAD Annual BMP Blood Test 05/04/2024 05/05/2023, [...] age to complete this topic Insurance MEDICARE [employer] Care Teams Relay Assembler Relationship Specialty Start Date End Date Darrell Sutherland MD [address] [place] [phone] PCP - General Internal Medicine 12/12/23
== END 2024-09-10 10:50 | disposition home or self-care (01) ==
LOC: HO.ACS 10:21
PROVIDERS: PCP Radiology Diagnostic Radiology; Visit Provider Internal Medicine Medical Oncology
DX: Z79.01 Long term (current) use of anticoagulants (principal)

== ENCOUNTER → 2024-09-10 10:21 | Outpatient (BNVA) | payer MEDICARE, SELFPAY | PROVIDERS: PCP Radiology Diagnostic Radiology; Visit Provider Internal Medicine Medical Oncology | DX: I48.19 Other persistent atrial fibrillation (principal); I26.99 Other pulmonary embolism without acute cor pulmonale; Z79.01 Long term (current) use of anticoagulants; Z51.81 Encounter for therapeutic drug level monitoring | CPT/HCPCS: 85610; 99211 ==

== ENCOUNTER 2024-09-11 12:36 | Outpatient (REF) | payer MEDICARE, SELFPAY ==
--- NOTE | ~2024-09-11 | CT_ITS ---
EXAMINATION: CT CHEST WITHOUT CONTRAST CLINICAL INFORMATION: R91.8. Abnormal finding of the lung. COMPARISON: September 15, 2023. TECHNIQUE: Multidetector volumetric CT imaging of the chest was done. Axial MIP volume rendering provided. Sagittal and coronal reformatted images were obtained. This CT examination was performed using dose optimization techniques as appropriate, variously including the following: *Automated exposure control *Adjustment of mA and/or kV according to patient size (this includes techniques or standardized protocols for targeted exams where dose is matched to indication/reason for exam; i.e. extremities or head) *Use of iterative reconstruction technique. DLP: 182 mGy centimeter. FINDINGS: CANE STRIPPER: Patient's large body habitus. No hyperinflation. Upper extremities at the both sides of the chest abdomen. Vascular clips right upper quadrant abdomen. LUNGS: Pulmonary mosaic pattern. Focal saccular bronchiectasis, lingula. Interlobular septal thickening, lingula. No gross pulmonary nodules. No honeycombing. Respiratory airways is patent. No consolidation. MEDIASTINUM: Mediastinal lymphadenopathy with fatty hilum, nonspecific. Calcified plaques in the thoracic aorta wall extending branches without gross aneurysm. Calcified plaques in the coronary arteries. No pericardial effusion. The thyroid gland is not enlarged. No pneumomediastinum. No hemopericardium. CORONARY ARTERY CALCIFICATION: Calcified plaques. PLEURA: No pleural effusion. No pneumothorax. No calcified pleural plaques. AXILLA: No lymphadenopathy. UPPER ABDOMEN: 32 mm mixed solid fatty density in an exophytic lateral upper pole right kidney previously solid density on a CT dated December 15, 2021. Calcified plaques in the splenic artery. Scattered diverticula in the splenic colonic flexure. OSSEOUS STRUCTURES: Multilevel spondylosis with a kyphotic deformity. No acute fracture or gross listhesis. Multilevel Schmorl nodes throughout the endplates of the axial skeleton. No acute fracture. CT/CT chest wo IV con IMPRESSION: Stable morphology of the lung parenchyma suggesting small airway disease versus small point artery disease. Coronary artery disease and atherosclerosis disease. 32 mm exophytic mixed density lesion, upper pole right kidney. Fleischner guidelines were followed. Electronically signed by: Messi Patterson MD 09/11/2024 01:17 PM EDT
--- NOTE | 2024-09-11 13:28 | CA_ITS ---
Transthoracic Echocardiogram Patient (Last, First, Middle): Sudha Meek E Gender: Female Date of : 1940 Age: 83 Procedure Date: 09/11/2024 Procedure Type: Transthoracic Echocardiogram Location: OP Height: 152.4 cm Weight: 71.67 kg BSA: 1.69 m2 Heart Rate: bpm BP: 122 / 70 mmHg Sifting Operator: RENALDO Referring MD: Rob Ryan MD Symptoms: I48.19 - Other persistent atrial fibrillation Study Quality: Adequate ECG Rhythm: Atrial Fibrillation Conclusions: - The left ventricular systolic function is normal. The calculated ejection fraction is 59% by biplane method. - No obvious valvular pathology seen on this study. - The inferior vena cava is mildly dilated and collapses less than 50% with inspiration. Findings Left Ventricle Normal left ventricular cavity size. There is normal left ventricular wall thickness. The left ventricular systolic function is normal. The calculated ejection fraction is 59% by biplane method. There is no evidence of regional wall motion abnormalities. Diastolic function is indeterminate on the basis of available data. Right Ventricle Normal right ventricular cavity size. There is mildly decreased right ventricular systolic function. Atria The left atrium is moderately dilated. The right atrium is normal in size. Aortic Valve There is a normal trileaflet aortic valve. There is mild calcification of the aortic valve. There is no aortic valve stenosis. Trace to mild aortic regurgitation. Mitral Valve There is mild mitral annular calcification. There is trace mitral valve regurgitation. There is no mitral valve stenosis. Pulmonic Valve The pulmonic valve is likely normal. Tricuspid Valve There is mild tricuspid valve regurgitation. Mild pulmonary hypertension is present. Great Vessels The asc aorta is normal in size. Small plaque is seen in the sino tubular ridge. Venous The inferior vena cava is mildly dilated and collapses less than 50% with inspiration. Pericardium/Pleural There is no evidence of pericardial effusion. Recommendations, Care & Conclusions No obvious valvular pathology seen on this study. Measurements 2D Linear Measurements IVSd: 1.05 0.6-0.9/0.6-1.0 cm LVIDd: 4.34 3.9-5.3/4.2-5.9 cm LVIDd Index: 2.57 2.4-3.2/2.2-3.1 cm/m2 LVIDs: 2.71 2.0-3.6 cm LVPWd: 0.93 0.7-1.1 cm LA Diam: 4.10 2.7-3.8/3.0-4.0 cm LAIDs Index: 2.43 1.5-2.3 cm/m2 LV Mass: 177.52 67-162/88-224 g LV Mass Index: 105.04 43-95/49-115 g/m2 LVOT Diam: 1.90 3.0+(-)1.3 cm 2D Systolic Function EF 4C: 58.70 >55% EF 2C: 60.50 >55% EF BiP: 59.10 >55% Mitral Valve MV Pk E: 1.22 MV Decel Time: 160.00 E'Lateral: 9.41 E'Medial: 6.37 E/E' Med: 19.20 E/E' Lat: 13.00 PHT: 47.00 MVA PHT: 4.68 Decel Nassau: 7.67 Aortic Valve AoV Pk Harman: 1.35 AoV Mn Harman: 0.93 AoV VTI: 0.27 AoV Pk Grad: 7.00 Aov Mn Grad: 4.00 FRANKLIN Cont.VTI: 1.67 AI Pk Harman: 3.84 AI Nassau: 1.66 LVOT LVOT Pk Harman: 0.87 LVOT Mn Harman: 0.52 LVOT VTI: 0.16 LVOT Pk Grad: 3.00 LVOT Mn Grad: 1.00 LVOT Diam: 1.90 LVOT Area: 2.84 Diastolic Function MV Pk E: 1.22 E'Medial: 6.37 E/E' Med: 19.20 E' Laterial: 9.41 E/E' Lat: 13.00 Right Ventricle TAPSE (mm): 14.40 TVS' Harman: 8.70 Tricuspid Valve TR Pk Harman: 2.57 TR Pk Grad: 26.00 RA Press: 15.00 RVSP: 41.00 Great Vessels Aorta Sinus of Valsalva: 3.05 2.0-3.5 cm Ao Asc: 3.50 2.1-3.4 cm Updated in Other Vendor System with Status of Final Gareth Garcia MD electronically signed on 09/13/2024 11:18:30 AM with status of Final
--- OUTSIDE RECORDS SUMMARY | 2024-09-11 13:37 | XMS_ITS | Patient Health Record ---
Author Organization [facility] Address [address] [place] [address] Care Team Providers Care Composition Professor Name Role Phone Darrell Sutherland MD Primary Care Provider Dylon Leary Unavailable [phone] Allergies Allergen (clinical drug ingredient) Drug/Non Drug [...] Status Risk Notes Problem Acquired hallux valgus (64641996) Hallux valgus (acquired), left foot (M20.12) Active confirmed Problem Acquired hallux valgus (42627234) Hallux valgus (acquired), right foot (M20.11) Active confirmed Problem Acquired hammer toe of right foot (4153961706046 105) Other hammer toe(s) (acquired), right foot (M20.41) Active confirmed Problem Acquired hammer toe of left foot (0952204441593 103) Other hammer toe(s) (acquired), left foot (M20.42) Active confirmed Plan Of Treatment Pending Test Test Name Order Date X ray : Foot, right 3V 06/05/2020 Insurance Providers Payer Name Payer Address Payer Phone Subscriber Number Group Number Insured Name Patient Relationship to Insured Coverage Start Date Coverage End Date Medicare National Govt Svcs Inc [address] [place] [address] [id number] Sudha Meek Self - patient is the insured [employer] [address] [place] [address] [id number] Sudha Meek Self - patient is the insured Medical (General) History Medical History History ICD Code High blood pressure Surgical History Surgery Date(Month/Year) right knee replacement 10/2016
--- OUTSIDE RECORDS SUMMARY | 2024-09-11 13:37 | XMS_ITS | Clinical Summary ---
Author Organization [facility] Address [address] [place] [address] Phone Care Team Providers Care Dredge Mechanic Name Role Phone Darrell Sutherland MD Primary Care Provider [phone] Surgical History Surgery Date Site/Laterality Comments US [...] PM EST [facility]ointment [facility] [address] [address] Health Maintenance Due Date Last [...] age to complete this topic Insurance MEDICARE [facility] Care Teams Dredge Mechanic Relationship Specialty Start Date End Date Darrell Sutherland MD [address] [place] [id number] PCP - General Internal Medicine 12/12/23
--- OUTSIDE RECORDS SUMMARY | 2024-09-11 13:37 | XMS_ITS | Patient Health Record ---
Author Organization [facility] Address [address] [place] [address] Care Team Providers Care Slag Mixer Name Role Phone Darrell Sutherland MD Primary Care Provider Jay Talbot Unavailable [phone] Allergies No Known Allergies Reason For Referral [...] Risk Notes Problem Diverticular disease of colon (864249095) Diverticulosis of large intestine without perforation or abscess without bleeding (K57.30) Active confirmed Problem Gastrointestinal hemorrhage (96953360) Lower GI bleed (K92.2) Active confirmed Plan Of Treatment Future Test Test Name Order Date COLONOSCOPY 02/27/2013 COLONOSCOPY 05/12/2023 Insurance Providers Payer Name Payer Address Payer Phone Subscriber Number Group Number Insured Name Patient Relationship to Insured Coverage Start Date Coverage End Date MEDICARE OF [place] [address] [place] [address] [id number] ROLAN GEORGE Self - patient is the insured MEDEX ATTN CLAIMS [address] [place] [address] [phone] [id number] ROLAN GEORGE Self - patient is the insured Medical (General) History Medical History History ICD Code Choledocholithiasis--removed via ERCP in 02/2010 prior to Lap [facility] Hypertension Denies AR,DM,CVA,renal disease AFIB - Dr. Ryan--Unsuccessful cardiover shanthi 02/2023 Interstitiail lung disease-Dr. Monge --sleeps with oxygen Ablation of a cancer in the right kidney 05/2022 at [facility] Negative colonoscopy in 06/2013 Lower GI bleed 05/04/2023 Surgical History Surgery Date(Month/Year) Knee surgery Cholecystectomy 2010
--- OUTSIDE RECORDS SUMMARY | 2024-09-11 13:37 | XMS_ITS | Encounter Summary ---
Author Organization [facility] Address [address] [address] Phone Care Team Providers Care Jig Grinder Name Role Phone Darrell Sutherland MD Primary Care Provider [phone] Darrell Sutherland MD Unavailable [phone] Travis Monge MD Unavailable Melanie Henson RN Unavailable [phone] Encounter Details Date Type Department Care Team (Late st Contact Info) Description 07/20/2022 Procedure Pass [facility], [address] [address] Social History Tobacco Use Types Packs/Day Years [...] (Latest Contact Info) Description 07/12/2024 Procedure Pass [address] [address] 09/19/2024 11:30 AM EDT Office Visit [facility] Internal Medicine [address] [place] [address] Darrell Sutherland MD [address] [place] [address] 07/10/2025 11:10 AM EDT Appointment [address] [address] Ciro Kelley MD [address] [place] [address] Avtar [email or web address] 07/10/2025 12:00 PM EDT Appointment [facility], X-Ray - [address] [address] Ciro Kelley MD [address] [place] [address] Avtar [email or web address] 07/16/2025 3:00 PM EDT Telemedicine - audio only [facility] Radiology [facility] [address] [facility], 3rd Floor, [place] [address] Ciro Kelley MD [address] [place] [address] Avtar [email or web address] documented as of this encounter Visit Diagnoses Not on filedocumented in this encounter Additional Health Concerns Infection Onset Date Last Indicated Resolved Time CoV-Risk 07/13/2023 07/13/2023 07/24/2023 1:22 AM EDT Assessment Noted Time PHQ-2 Depression Total Score: 0 01/26/20 12:55 PM EST documented as of this encounter Care Teams Jig Grinder Relationship Specialty Start Date End Date Darrell Sutherland MD [address] [place] [address] [email or web address] PCP - General Internal Medicine 01/11/17 Darrell Sutherland MD [address] [place] [address] Insurance Assigned Provider 05/28/23 Travis Monge MD [address] [place] [address] [place], [place] [id number] Pulmonary Disease 06/01/22 Melanie Henson, RN [address] [place] [address] [id number] [email or web address] iCMP Miller Head Wet Process 09/19/23 10/24/23 documented as of this encounter Additional Source Comments The information contained in this document represents components of the legal health record. It is not the complete legal health record.[facility]
== END 2024-09-11 12:37 | disposition home or self-care (01) ==
LOC: HO.CT 12:36
PROVIDERS: PCP Internal Medicine; Visit Provider Hospitalist
DX: I48.19 Other persistent atrial fibrillation (principal); R91.8 Other nonspecific abnormal finding of lung field
CPT/HCPCS: 71250; 93306

== ENCOUNTER → 2024-09-11 12:38 | Outpatient (BNV) | payer MEDICARE, SELFPAY | PROVIDERS: PCP Internal Medicine; Visit Provider Radiology Diagnostic Radiology | DX: J47.1 Bronchiectasis with (acute) exacerbation (principal) | CPT/HCPCS: 71250 ==

== ENCOUNTER → 2024-09-11 13:28 | Outpatient (BNV) | payer MEDICARE, SELFPAY | PROVIDERS: PCP Internal Medicine; Visit Provider Internal Medicine | DX: I48.19 Other persistent atrial fibrillation (principal) | CPT/HCPCS: 93306 ==

== ENCOUNTER 2024-09-24 09:44 | Outpatient (AMB) | payer MEDICARE, SELFPAY ==
--- NOTE | 2024-09-24 10:04 | MHC.OFFVISCO ---
Intake Intake Visit Reasons: Anticoagulation Allergies amlodipine Allergy (Intermediate, Verified 09/05/24 08:45) Difficulty Breathing latex (LATEX) Allergy (Intermediate, Verified 09/05/24 08:45) RASH seasonal Allergy (Intermediate, Uncoded 09/05/24 08:45) Sneezing altace Adverse Reaction (Mild, Uncoded 09/05/24 08:45) Cough Nursing Note INR: 3.0 in therapeutic range- Pt realized that she was eating more walnuts with her foods that may have raised her previous INR Medications and supplements reviewed No changes in health, diet, medications, or supplements, Denies any signs and symptoms of bleeding or bruising or clotting. Bleeding, bruising, clotting discussed Nutritional guidance given - COOKED GREENS ALLOWS YOU TO ABSORB MORE VIT K AND LOWER YOUR INR Dose: 5MG MWF/ 7.5MG X 4 DAYS F/U INR: 3 WEEKS Patient verbalizes understanding of instructions given Anti-Coag Initial Assessment Social Hx Patient Tobacco Use Status: Former Tobacco user Tobacco use type: Cigarette alcohol intake: former Alcohol intake frequency: does not drink Cardiovascular Hx: HTN, Arrhythmias and Other (atrial fib) Lung Disease HX: DVT/PE (blood clots in lungs 12/13) and Other (interstitial lung disease) Musculoskeletal Hx: Arthritis (bilateral knee, right total replacement) GI Hx: Bleeding (GI, rectal), Diverticulosis and Hemorrhoids Hx: Other (renal cell CA 12/13) Cancer HX: Yes Psych. 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
--- OUTSIDE RECORDS SUMMARY | 2024-09-24 10:17 | XMS_ITS | Encounter Summary ---
Author Organization [facility] Address [address] [address] Phone Care Team Providers Care Graduate Intern Name Role Phone Darrell Sutherland MD Primary Care Provider Darrell Sutherland MD Unavailable [phone] Travis Monge MD Unavailable [phone] Melanie Henson RN Unavailable [phone] Encounter Details Date Type Department Care Team (Late st Contact Info) Description 07/20/2022 Procedure Pass [facility], [address] [address] Social History Tobacco Use Types Packs/Day Years [...] (Latest Contact Info) Description 07/12/2024 Procedure Pass [address] [address] 03/27/2025 1:00 PM EST Office Visit [facility] Internal Medicine [address] [place] [address] Darrell Sutherland MD [address] [place] [address] 07/10/2025 11:10 AM EDT Appointment [address] [address] Ciro Kelley MD [address] [place] [address] Avtar [email or web address] 07/10/2025 12:00 PM EDT Appointment [facility], X-Ray - [address] [address] Ciro Kelley MD [address] [place] [address] Avtar [email or web address] 07/16/2025 3:00 PM EDT Telemedicine - audio only [facility] Radiology Cross [facility]al Clinic [address] [facility], 3rd Floor, [place] [address] Ciro Kelley MD [address] [place] [address] Avtar [email or web address] documented as of this encounter Visit Diagnoses Not on filedocumented in this encounter Additional Health Concerns Infection Onset Date Last Indicated Resolved Time CoV-Risk 07/13/2023 07/13/2023 07/24/2023 1:22 AM EDT Assessment Noted Time PHQ-2 Depression Total Score: 0 01/26/20 12:55 PM EST documented as of this encounter Care Teams Graduate Intern Relationship Specialty Start Date End Date Darrell Sutherland MD [address] [place] [address] [email or web address] PCP - General Internal Medicine 01/11/17 Darrell Sutherland MD [address] [place] [address] Insurance Assigned Provider 05/28/23 Travis Monge MD [address] [place] [address] [place] [address] Pulmonary Disease 06/01/22 Melanie Henson, RN [address] [place] [address] [email or web address] iCMP Career Services Director 09/19/23 10/24/23 documented as of this encounter Additional Source Comments The information contained in this document represents components of the legal health record. It is not the complete legal health record.[facility]
--- OUTSIDE RECORDS SUMMARY | 2024-09-24 10:18 | XMS_ITS | Clinical Summary ---
Author Organization [facility] Address [address] [place] [address] Phone Care Team Providers Care Manager Contracting Name Role Phone Darrell Sutherland MD Primary Care Provider [phone] Surgical History Surgery Date Site/Laterality Comments US [...] PM EST [facility]ointment [facility] [address] [address] Health Maintenance Due Date Last Done Comments Zoster Vaccines (2 of 3) 01/16/2009 11/21/2008 Cholesterol Screening (Lipid Panel) 01/24/2022 Falls Risk Assessment 01/24/2022 Medicare Annual Wellness Visit 01/24/2022 Osteoporosis Screening (Bone Density Screening) 01/24/2022 Social Influencers of Health Screening 01/24/2022 Depression Screening 02/22/2024 Hypertension/CHF/CAD Annual BMP Blood Test 05/04/2024 05/05/2023, 12/13/2022, 01/28/2022, Additional history exists COVID-19 Vaccine (2023- season) 2024 11/07/2023, 12/16/2022, 01/22/2022, Additional history [...] to complete this topic Insurance MEDICARE [facility] Care Teams Manager Contracting Relationship Specialty Start Date End Date Darrell Sutherland MD [address] [place] [phone] PCP - General Internal Medicine 12/12/23
--- OUTSIDE RECORDS SUMMARY | 2024-09-24 10:18 | XMS_ITS | Patient Health Record ---
Author Organization [facility] Address [address] [place] [address] Care Team Providers Care Political Geographer Name Role Phone Darrell Sutherland MD Primary Care Provider Jay Talbot Unavailable [phone] Allergies No Known Allergies Reason For Referral [...] Risk Notes Problem Diverticular disease of colon (396009709) Diverticulosis of large intestine without perforation or abscess without bleeding (K57.30) Active confirmed Problem Gastrointestinal hemorrhage (61489997) Lower GI bleed (K92.2) Active confirmed Plan Of Treatment Future Test Test Name Order Date COLONOSCOPY 02/27/2013 COLONOSCOPY 05/12/2023 Insurance Providers Payer Name Payer Address Payer Phone Subscriber Number Group Number Insured Name Patient Relationship to Insured Coverage Start Date Coverage End Date MEDICARE OF [place] [address] [facility] [place] [address] [id number] ROLAN GEORGE Self - patient is the insured MEDEX ATTN CLAIMS [address] [place] [address] [id number] ROLAN GEORGE Self - patient is the [...]
--- OUTSIDE RECORDS SUMMARY | 2024-09-24 10:18 | XMS_ITS | Patient Health Record ---
Author Organization [facility] Address [address] [place] [address] Care Team Providers Care Clinical Informatics Physician Name Role Phone Darrell Sutherland MD Primary Care Provider Dylon Leary Unavailable [phone] Allergies Allergen (clinical drug ingredient) Drug/Non Drug [...] Status Risk Notes Problem Acquired hallux valgus (43414335) Hallux valgus (acquired), left foot (M20.12) Active confirmed Problem Acquired hallux valgus (72609867) Hallux valgus (acquired), right foot (M20.11) Active confirmed Problem Acquired hammer toe of right foot (1156066581958 105) Other hammer toe(s) (acquired), right foot (M20.41) Active confirmed Problem Acquired hammer toe of left foot (9831358257849 103) Other hammer toe(s) (acquired), left foot (M20.42) Active confirmed Plan Of Treatment Pending Test Test Name Order Date X ray : Foot, right 3V 06/05/2020 Insurance Providers Payer Name Payer Address Payer Phone Subscriber Number Group Number Insured Name Patient Relationship to Insured Coverage Start Date Coverage End Date Medicare National Govt Svcs Inc [address] [place] [address] [id number] Sudha Meek Self - patient is the insured Medex Blue Receptor [address] [place] [address] [id number] Sudha Meek Self - patient is the insured Medical (General) History Medical History History ICD Code High blood pressure Surgical History Surgery Date(Month/Year) right knee replacement 10/2016
[2024-09-24 10:38] LABS: Prothrombin Time Whole Bld POC 35.5 sec (11.1-13.5); ~PT, ~INR - Anti Coag Clinic 3.0 (0.9-1.1)
== END 2024-09-24 10:16 | disposition home or self-care (01) ==
LOC: HO.ACS 09:44
PROVIDERS: PCP Internal Medicine; Visit Provider Internal Medicine Medical Oncology
DX: Z79.01 Long term (current) use of anticoagulants (principal)

== ENCOUNTER → 2024-09-24 09:44 | Outpatient (BNVA) | payer MEDICARE, SELFPAY | PROVIDERS: PCP Internal Medicine; Visit Provider Internal Medicine Medical Oncology | DX: Z51.81 Encounter for therapeutic drug level monitoring (principal); Z79.01 Long term (current) use of anticoagulants | CPT/HCPCS: 85610; 99211 ==

== ENCOUNTER 2024-10-15 09:42 | Outpatient (AMB) | payer MEDICARE, SELFPAY ==
--- OUTSIDE RECORDS SUMMARY | 2023-05-19 10:00 | XMS_ITS ---
Author Organization [facility] Address [address] [place] [address] Care Team Providers Care Power Plant Engineer Name Role Phone Darrell Sutherland MD Primary Care Provider Unavaila Jay Bailey Unavailable [phone] REASON FOR VISIT lower GI bleed Problems Problem Type SNOMED Code ICD Code Onset Dates Problem Status W/U Status Risk Notes Problem Diverticular disease of colon (145407307) Diverticulosis of large intestine without perforation or abscess without bleeding (K57.30) Active confirmed Encounters Encounter Location Date Provider Diagnosis [facility] [place] [address] [place] [phone] 05/19/2023 Jay Guido Colon polyps K63.5 ; [...] ROLAN GEORGE EDOB:[birth year] (83 yo F)Acc No.[id number]:05/19/2023 COLON WITH MAC Patient: Judy ROLAN ROGER Provider: Jeniffer Guido MD :1940 A ge:82 Y S ex:Female Date:05/19/2023 Address:[address] [place] [address], [place] Pcp:Darrell Sutherland MD Subjective: * Chief Complaints: [...] 05/19/2023 Generated for Naila arrington/Daniela/Vanceitting on: 0 10/15/2024 10:32 AM EDT
[2024-10-15 10:06] LABS: Prothrombin Time Whole Bld POC 34.6 sec (11.1-13.5); ~PT, ~INR - Anti Coag Clinic 2.9 (0.9-1.1)
--- NOTE | 2024-10-15 10:11 | MHC.OFFVISCO ---
Intake Intake Visit Reasons: Anticoagulation Allergies amlodipine Allergy (Intermediate, Verified 10/15/24 10:00) Difficulty Breathing latex (LATEX) Allergy (Intermediate, Verified 10/15/24 10:00) RASH seasonal Allergy (Intermediate, Uncoded 10/15/24 10:00) Sneezing altace Adverse Reaction (Mild, Uncoded 10/15/24 10:00) Cough Medication List - Last Reconciled 10/15/24 by Tricia Kilgore RN atenolol 50 mg PO BID cholecalciferol (vitamin D3) 25 mcg PO DAILY digoxin 125 mcg PO DAILY furosemide (Lasix) 20 mg PO DAILY PRN olmesartan 20 mg PO DAILY Oxygen Home Use As directed warfarin 5 mg See Protocol PO DAILY Nursing Note INR: 2.9 in therapeutic range of 2-3 Medications and supplements reviewed No changes in health, diet, medications, or supplements, Denies any signs and symptoms of bleeding or bruising or clotting. Bleeding, bruising, clotting discussed Nutritional guidance given to have a serving of greens today Dose: 7.5mg X 4 days and 5mg X 3 days (M/W/F) F/U INR: 3 weeks Patient verbalizes understanding of instructions given Anti-Coag Initial Assessment Social Hx Patient Tobacco Use Status: Former Tobacco user Tobacco use type: Cigarette alcohol intake: former Alcohol intake frequency: does not drink Cardiovascular Hx: HTN, Arrhythmias and Other (atrial fib) Lung Disease HX: DVT/PE (blood clots in lungs 12/13) and Other (interstitial lung disease) Musculoskeletal Hx: Arthritis (bilateral knee, right total replacement) GI Hx: Bleeding (GI, rectal), Diverticulosis and Hemorrhoids Hx: Other (renal cell CA 12/13) Cancer HX: Yes Psych. 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
--- OUTSIDE RECORDS SUMMARY | 2024-10-15 10:33 | XMS_ITS | Patient Health Record ---
Author Organization [facility] Address [address] [place] [address] Care Team Providers Care Marketing Technologist Name Role Phone Darrell Sutherland MD Primary Care Provider Dylon Leary Unavailable [phone] Allergies Allergen (clinical drug ingredient) Drug/Non Drug [...] Status Risk Notes Problem Acquired hallux valgus (87593840) Hallux valgus (acquired), left foot (M20.12) Active confirmed Problem Acquired hallux valgus (63092299) Hallux valgus (acquired), right foot (M20.11) Active confirmed Problem Acquired hammer toe of right foot (8211943102317 105) Other hammer toe(s) (acquired), right foot (M20.41) Active confirmed Problem Other hammer toe(s) (acquired), left foot (M20.42) Active confirmed Plan Of Treatment Pending Test Test Name Order Date X ray : Foot, right 3V 06/05/2020 Insurance Providers Payer Name Payer Address Payer Phone Subscriber Number Group Number Insured Name Patient Relationship to Insured Coverage Start Date Coverage End Date Medicare National Govt Svcs Inc [address] [place] [address] [id number] Sudha Meek Self - patient is the insured Medex Blue Shield [address] [place] [address] [id number] Sudha Meek Self - patient is the insured Medical (General) History Medical History History ICD Code High blood pressure Surgical History Surgery Date(Month/Year) right knee replacement 10/2016
--- OUTSIDE RECORDS SUMMARY | 2024-10-15 10:33 | XMS_ITS | Clinical Summary ---
Author Organization [facility] Address [address] [place] [address] Phone Care Team Providers Care Sound System Installer Name Role Phone Darrell Sutherland MD Primary Care Provider [phone] Surgical History Surgery Date Site/Laterality Comments US [...] PM EST [facility]ointment [facility] [address] [address] Health Maintenance Due Date Last [...] to complete this topic Insurance MEDICARE [facility] Care Teams Sound System Installer Relationship Specialty Start Date End Date Darrell Sutherland MD [address] [place] [address] PCP - General Internal Medicine 12/12/23
== END 2024-10-15 10:18 | disposition home or self-care (01) ==
LOC: HO.ACS 09:42
PROVIDERS: PCP Internal Medicine; Visit Provider Internal Medicine Medical Oncology
DX: Z79.01 Long term (current) use of anticoagulants (principal)

== ENCOUNTER → 2024-10-15 09:42 | Outpatient (BNVA) | payer MEDICARE, SELFPAY | PROVIDERS: PCP Internal Medicine; Visit Provider Internal Medicine Medical Oncology | DX: Z51.81 Encounter for therapeutic drug level monitoring (principal); Z79.01 Long term (current) use of anticoagulants | CPT/HCPCS: 85610; 99211 ==

== ENCOUNTER 2024-10-30 10:41 | Outpatient (REF) | payer MEDICARE, SELFPAY ==
--- OUTSIDE RECORDS SUMMARY | 2023-05-19 10:00 | XMS_ITS ---
Author Organization [facility] Address [address] [place] [address] Care Team Providers Care Ironworker Apprentice Name Role Phone Darrell Sutherland MD Primary Care Provider Unavaila Jay Bailey Unavailable [phone] REASON FOR VISIT lower GI bleed Problems Problem Type SNOMED Code ICD Code Onset Dates Problem Status W/U Status Risk Notes Problem Diverticular disease of colon (030941711) Diverticulosis of large intestine without perforation or abscess without bleeding (K57.30) Active confirmed Encounters Encounter Location Date Provider Diagnosis [facility] Outpatient [address] [place] [phone] 05/19/2023 Jay Guido Colon polyps K63.5 ; [...] ROLAN GEORGE EDOB:[birth year] (83 yo F)Acc No.[id number]:05/19/2023 COLON WITH MAC Patient: Judy PALACIOSROLAN INIGUEZ Provider: Jeniffer Guido MD :1940 A ge:82 Y S ex:Female Date:05/19/2023 Address:[address] [place] [address], [id number] Pcp:Darrell Sutherland MD Subjective: * Chief Complaints: [...] 05/19/2023 Generated for Naila arrington/Daniela/Vanceitting on: 0 10/30/2024 12:39 PM EDT
--- NOTE | 2024-10-30 10:44 | PFT_ITS ---
Indication: ILD Spirometry FEV1 to FVC 90%; FEV1 1.24 L; FVC 1.3 L. the patient did not receive bronchodilators. Lung Volumes Total lung capacity 71% predicted; residual volume 74% predicted; expiratory reserve volume could not be calculated Diffusion Capacity DLCO 74% predicted Comparisons None Interpretation No obstructive ventilatory defects identified. 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 The patient has a mild diffusion impairment. Clinical correlation warranted. MTDD
--- OUTSIDE RECORDS SUMMARY | 2024-10-30 12:39 | XMS_ITS | Encounter Summary ---
Author Organization [facility] Address [address] [place] [address] Phone Care Team Providers Care Candle Molder Hand Name Role Phone Darrell Sutherland MD Primary Care Provider Darrell Sutherland MD Unavailable [phone] Travis Monge MD Unavailable Melanie Henson RN Unavailable Encounter Details Date Type Department Care Team (Late st Contact Info) Description 06/08/2022 Procedure Pass [facility] Periop [address] [place] [address] Social History Tobacco Use Types Packs/Day Years Used Date Smoking Tobacco: Never Smokeless Tobacco: Never Alcohol Use Standard Drinks/Week Comments No 0 (1 standard drink = 0.6 oz pur e alcohol) Comments No Sex and Gender Information Value Date Recorded Sex Assigned at Not on file Legal Sex Female 10:10 PM EDT Gender Identity Not on file Sexual Orientation Not on file documented as of this encounter Plan of Treatment Upcoming Encounters Date Type Department Care Team (Latest Contact Info) Description 07/12/2024 Procedure Pass [facility], [facility] [address] [place] [address] 03/27/2025 1:00 PM EST Office Visit [facility] Internal Medicine [address] [place] [address] Darrell Sutherland MD [address] [place] [address] [email or web address] 07/10/2025 11:10 AM EDT Appointment [facility] Mri - [address] [address] Ciro Kelley MD [address] [place] [address] Avtar [email or web address] 07/10/2025 12:00 PM EDT Appointment [facility] X-Ray [address] [address] Ciro Kelley MD [address] [place] [address] Avtar [email or web address] 07/16/2025 3:00 PM EDT Telemedicine - audio only [facility] Radiology Cross [facility]al Clinic [address] [facility], 3rd Floor, [place] [address] Ciro Kelley MD [address] [place] [address] Avtar [email or web address] documented as of this encounter Visit Diagnoses Not on filedocumented in this encounter Additional Health Concerns Infection Onset Date Last Indicated Resolved Time CoV-Risk 07/13/2023 07/13/2023 07/24/2023 1:22 AM EDT Assessment Noted Time PHQ-2 Depression Total Score: 0 01/26/20 12:55 PM EST documented as of this encounter Care Teams Candle Molder Hand Relationship Specialty Start Date End Date Darrell Sutherland MD [address] [place] [address] [email or web address] PCP - General Internal Medicine 01/11/17 Darrell Sutherland MD [address] [place] [address] [email or web address] Insurance Assigned Provider 05/28/23 Travis Monge MD [address] [place] [address] [place] [address] Pulmonary Disease 06/01/22 Melanie Henson, RN [address] [place] [address] [email or web address] iCMP Rotary Engraver 09/19/23 10/24/23 documented as of this encounter Additional Source Comments The information contained in this document represents components of the legal health record. It is not the complete legal health record.[facility]
--- OUTSIDE RECORDS SUMMARY | 2024-10-30 12:39 | XMS_ITS | Encounter Summary ---
Author Organization [facility] Address [address] [place] [address] Phone Care Team Providers Care Furnace Operator Name Role Phone Darrell Sutherland MD Primary Care Provider Darrell Sutherland MD Unavailable [phone] Travis Monge MD Unavailable Melanie Henson RN Unavailable [phone] Encounter Details Date Type Department Care Team (Late st Contact Info) Description 06/15/[address] [address] Social History Tobacco Use Types Packs/Day Years Used Date Smoking Tobacco: Never Smokeless Tobacco: Never Alcohol Use Standard Drinks/Week Comments No 0 (1 standard drink = 0.6 oz pur e alcohol) Education Answer Date Recorded Are you interested in more education? Not on paulette e 06/17/2022 Are you concerned about learning? Not on file 06/17/2022 No 06/17/2022 No 06/17/2022 Comments No Sex and Gender Information Value Date Recorded Sex Assigned at Not on file Legal Sex Female 10:10 PM EDT Gender Identity Not on file Sexual Orientation Not on file documented as of this encounter Plan of Treatment Upcoming Encounters Date Type Department Care Team (Latest Contact Info) Description 07/12/[address] [address] 03/27/2025 1:00 PM EST Office Visit [facility] Internal Medicine [address] [place] [address] Darrell Sutherland MD [address] [place] [address] 07/10/2025 11:10 AM EDT Appointment [facility] Mri [address] [address] Ciro Kelley MD [address] [place] [address] Avtar [email or web address] 07/10/2025 12:00 PM EDT Appointment [facility] X-Ray [address] [address] Ciro Kelley MD [address] [place] [address] Avtar [email or web address] 07/16/2025 3:00 PM EDT Telemedicine - audio only [facility] Radiology [facility] [address] [facility], 3rd Floor, [place] [address] Ciro Kelley MD [address] [place] [phone] Avtar [email or web address] documented as of this encounter Visit Diagnoses Not on filedocumented in this encounter Additional Health Concerns Infection Onset Date Last Indicated Resolved Time CoV-Risk 07/13/2023 07/13/2023 07/24/2023 1:22 AM EDT Assessment Noted Time PHQ-2 Depression Total Score: 0 01/26/20 12:55 PM EST documented as of this encounter Care Teams Furnace Operator Relationship Specialty Start Date End Date Darrell Sutherland MD [address] [place] [address] [email or web address] PCP - General Internal Medicine 01/11/17 Darrell Sutherland MD [address] [place] [address] [email or web address] Insurance Assigned Provider 05/28/23 Travis Monge MD [address] [place] [address] [place] [address] Pulmonary Disease 06/01/22 Melanie Henson, RN [address] [place] [address] [phone] [email or web address] [email or web address] Supply Aide 09/19/23 10/24/23 documented as of this encounter Additional Source Comments The information contained in this document represents components of the legal health record. It is not the complete legal health record.[facility]
--- OUTSIDE RECORDS SUMMARY | 2024-10-30 12:39 | XMS_ITS | Encounter Summary ---
Author Organization [facility] Address [address] [address] Phone Care Team Providers Care Crystal Report Developer Name Role Phone Darrell Sutherland MD Primary Care Provider [phone] Darrell Sutherland MD Unavailable [phone] Travis Monge MD Unavailable Melanie Henson RN Unavailable Encounter Details Date Type Department Care Team (Late st Contact Info) Description 06/10/2022 Telephone [facility] PRE/PACU [address] [place] [address] Wanda Trevino, RN [address] [place] [address] [email or web address] Social History Tobacco Use Types Packs/Day Years [...] (Latest Contact Info) Description 07/12/2024 Procedure Pass [facility], [address] [address] 03/27/2025 1:00 PM EST Office Visit [facility] Medical [facility] Internal Medicine [address] [place] [address] Darrell Sutherland MD [address] [place] [address] 07/10/2025 11:10 AM EDT Appointment [facility], Mri - [address] [address] Ciro Kelley MD [address] [place] [address] Avtar [email or web address] 07/10/2025 12:00 PM EDT Appointment [facility] X-Ray - [address] [address] Ciro Kelley MD [address] [place] [address] [email or web address] 07/16/2025 3:00 PM EDT Telemedicine - audio only [facility] Radiology [facility] [address] [place] [address], [address] Floor, [place] [address] Ciro Kelley MD [address] [place] [address] Avtar [email or web address] documented as of this encounter Visit Diagnoses Not on filedocumented in this encounter Additional Health Concerns Infection Onset Date Last Indicated Resolved Time CoV-Risk 07/13/2023 07/13/2023 07/24/2023 1:22 AM EDT Assessment Noted Time PHQ-2 Depression Total Score: 0 01/26/20 12:55 PM EST documented as of this encounter Care Teams Crystal Report Developer Relationship Specialty Start Date End Date Darrell Sutherland MD [address] [place] [address] [email or web address] PCP - General Internal Medicine 01/11/17 Darrell Sutherland MD [address] [place] [address] [email or web address] Insurance Assigned Provider 05/28/23 Travis Monge MD [address] [place] [address] [place] [address] Pulmonary Disease 06/01/22 Melanie Henson, RN [address] [place] [address] [phone] [email or web address] iCMP Jewelry Sorter 09/19/23 10/24/23 documented as of this encounter Additional Source Comments The information contained in this document represents components of the legal health record. It is not the complete legal health record.[facility]
--- OUTSIDE RECORDS SUMMARY | 2024-10-30 12:39 | XMS_ITS | Encounter Summary ---
Author Organization [facility] Address [address] [employer] [address] [address] Phone Care Team Providers Care Fermenter Champagne Name Role Phone Darrell Sutherland MD Primary Care Provider [phone] Darrell Sutherland MD Unavailable [phone] Travis Monge MD Unavailable Melanie Henson RN Unavailable [phone] Encounter Details Date Type Department Care Team (Late st Contact Info) Description 07/20/2022 Procedure Pass [facility], [address] [address] Social History Tobacco Use Types Packs/Day Years [...] (Latest Contact Info) Description 07/12/2024 Procedure Pass [address] [address] 03/27/2025 1:00 PM EST Office Visit [facility] Internal Medicine [address] [place] [address] Darrell Sutherland MD [address] [place] [address] 07/10/2025 11:10 AM EDT Appointment [address] [address] Ciro Kelley MD [address] [place] [address] Avtar [email or web address] 07/10/2025 12:00 PM EDT Appointment [facility], X-Ray - [address] [address] Ciro Kelley MD [address] [place] [address] Avtar [email or web address] 07/16/2025 3:00 PM EDT Telemedicine - audio only [facility] Radiology [facility] [address] [facility], 3rd Floor, [place] [address] Ciro Kelley MD [address] [place] [address] Avtar [email or web address] documented as of this encounter Visit Diagnoses Not on filedocumented in this encounter Additional Health Concerns Infection Onset Date Last Indicated Resolved Time CoV-Risk 07/13/2023 07/13/2023 07/24/2023 1:22 AM EDT Assessment Noted Time PHQ-2 Depression Total Score: 0 01/26/20 12:55 PM EST documented as of this encounter Care Teams Fermenter Champagne Relationship Specialty Start Date End Date Darrell Sutherland MD [address] [place] [address] [email or web address] PCP - General Internal Medicine 01/11/17 Darrell Sutherland MD [address] [place] [address] Insurance Assigned Provider 05/28/23 Travis Monge MD [address] [place] [address] [place] [address] Pulmonary Disease 06/01/22 Melanie Henson, RN [address] [place] [address] [email or web address] iCMP Marketing Consultant 09/19/23 10/24/23 documented as of this encounter Additional Source Comments The information contained in this document represents components of the legal health record. It is not the complete legal health record.[facility]
--- OUTSIDE RECORDS SUMMARY | 2024-10-30 12:39 | XMS_ITS | Patient Health Record ---
Author Organization [facility] Address [address] [place] [address] Care Team Providers Care Veneer Taping Machine Operator Name Role Phone Darrell Sutherland MD Primary Care Provider Dylon Leary Unavailable [phone] Allergies Allergen (clinical drug ingredient) Drug/Non Drug [...] Status Risk Notes Problem Acquired hallux valgus (40811625) Hallux valgus (acquired), left foot (M20.12) Active confirmed Problem Acquired hallux valgus (38322431) Hallux valgus (acquired), right foot (M20.11) Active confirmed Problem Acquired hammer toe of right foot ([id number] 105) Other hammer toe(s) (acquired), right foot (M20.41) Active confirmed Problem Acquired hammer toe of left foot ([id number] 103) Other hammer toe(s) (acquired), left foot (M20.42) Active confirmed Plan Of Treatment Pending Test Test Name Order Date X ray : Foot, right 3V 06/05/2020 Insurance Providers Payer Name Payer Address Payer Phone Subscriber Number Group Number Insured Name Patient Relationship to Insured Coverage Start Date Coverage End Date Medicare National [employer] [address] [place] [address] [id number] Sudha Meek Self - patient is the insured [employer] [address] [place] [address] [id number] Sudha Meek Self - patient is the insured Medical (General) History Medical History History ICD Code High blood pressure Surgical History Surgery Date(Month/Year) right knee replacement 10/2016
--- OUTSIDE RECORDS SUMMARY | 2024-10-30 12:39 | XMS_ITS | Clinical Summary ---
Author Organization [facility] Address [address] [place] [address] Phone Care Team Providers Care Loading Machine Operator Helper Name Role Phone Darrell Sutherland MD Primary Care Provider [phone] Darrell Sutherland MD Unavailable [phone] Travis Monge MD Unavailable Allergies Active Allergy Reactions Criticality Noted Date Comments Ramipril Cough 04/26/2017 Amlodipine Other (See Comments) 08/29/2022 Dyspnea and lower o2 sAT 02 SAT DECREASED FROM 92 TO 88 Latex, Natural Rubber Rash Low 04/26/2017 Medications cholecalciferol (VITAMIN D3) 25 MCG (1,000 unit) tablet Take 2,000 Units by mouth 3 (three) times a week. 05/14/19 17 Active digoxin (LANOXIN) 250 mcg (0.25 mg) tablet Take 125 mcg by mouth every morning. Per pt cardiology said half tablet afib started taking 125 mcg around 12/2022 Active warfarin (COUMADIN) 5 MG tabletIndication s:Persistent atrial fibrillation,Kranthi ateral pulmonary embolism Take 1-1.5 tablets (5-7.5 mg total) by mouth as directed. Alternating 1 tablet qod and 1.5 tablets qod 135 tablet 3 09/15/19 24 Active OXYGEN-AIR DELIVERY SYSTEMS MISC 2 L by Miscellaneous route nightly at bedtime. And with exertion as needed Active atenolol (TENORMIN) 50 mg tabletIndication s:Essential hypertension Take 1 tablet (50 mg total) by mouth 2 (two) times a day. 180 tablet 3 02/10/20 Active furosemide (LASIX) 20 MG tablet Take 20 mg by mouth every other day. Managed by Dr. Ryan [facility] Active olmesartan (BENICAR) 20 mg tablet Take 20 mg by mouth every morning. 08/29/19 Active hydrocortisone 2.5 % cream Apply 1 Application topically as needed (for previous incision site on lower abdomen). 09/14/19 Active Active Problems Problem Noted Date Diagnosed Date Enlarged thyroid gland 11/07/2023 Overview (11/07/2023): Seen on chest Ct done 09/15/23- Acute pharyngitis 07/13/2023 Assessment & Plan (07/13/2023 3:05 PM EDT): Strep was negative. Advised warm herbal tea, like throat coat, gargle with Listerine, warm salt gargle, and can try honey 1 tsp orally q 1 hour, while awake SOB (shortness of breath) 07/13/2023 Assessment & Plan (07/13/2023 3:04 PM EDT): Here for low oxygen level this am, only s/s she has is a sore throat. Strep and resp swabs are negative here. I will get a CXR and labs to eval for infection, PE of HF. Her exam is stable, and she is in no distress. She is not on portal , will call her when we get results. She knows to pre to ED if her breathing becomes difficult. For her throat, she can use warm herbal tea, Listerine gargle, salt gargle and honey Malignant neoplasm of right kidney 07/27/2022 Renal mass, right 06/08/2022 ILD (interstitial lung disease) 04/01/2022 Overview (11/07/2023): Saw melinda Sevilla/ [place], 07[place]26/23 [place] [facility] [place] after abnormal imaging- plan to repeat with second abx course ( doxy) and repeat CT 09/14 CT was done see media scan Assessment & Plan (07/13/2023 3:07 PM EDT): Here today for low oxygen level on pulse ox. Level and HR did have good wave form and correlated with heard heart beat on exam. Cause if unclear, her normal is 92% on room air. She sees pulm next in Sept. Will do blood test and cxr, then f/u. If no cause can be identified, will ref her back to pul for more testing Assessment & Plan (04/01/2022 2:00 PM EST): Interstitial lung disease of unclear etiology. 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 As discussed with patient, recommend follow-up serologies, and close monitoring. If there is any progression, would have low threshold for treatment. Whether that includes antifibrotic therapy versus anti-inflammatory may depend on additional serology results though 1 could consider bronchoscopy with BAL and lieu of surgical lung biopsy. RECOMMENDATIONS: Obtain additional serologies, including ANCA's, anti-Jo1 antibody, SCL 70 antibody and myositis 3 panel Recommend 6-month follow-up Chest CT with repeat PFTs. Patient to follow-up with Dr. Monge for ongoing care. Hypoxia 04/01/2022 Assessment & Plan (07/13/2023 3:03 PM EDT): Here for low oxygen level this am, only s/s she has is a sore throat. Strep and resp swabs are negative here. I will get a CXR and labs to eval for infection, PE of HF. Her exam is stable, and she is in no distress. She is not on portal , will call her when we get results. She knows to pre to ED if her breathing becomes difficult. For her throat, she can use warm herbal tea, Listerine gargle, salt gargle and honey Assessment & Plan (04/01/2022 2:01 PM EST): Encouraged continued use of supplemental oxygen at night and daytime portable oxygen with increased exertion. Essential hypertension 04/29/2017 Osteopenia 04/29/2017 Primary osteoarthritis of both knees 04/29/2017 Pure hypercholesterolemia 04/29/2017 Vitamin D deficiency 04/29/2017 Encounters Date Type Department Care Team Description 09/19/2024 11:30 AM EDT Office Visit [facility] [address] [facility] [place] [address] Darrell Sutherland MD Screening mammogram for breast cancer (Primary Dx); Vitamin D deficiency, unspecified; Pure hypercholesterolemia ; Benign essential hypertension; Impaired fasting glucose 09/19/2024 Orders Only [facility] Internal Medicine [address] [facility] [place] [address] ProviderAmalia MD 09/17/2024 Orders Only [facility] [address] [facility] [place] [address] ProviderAmalia MD 09/07/2024 Documentation [facility] [address] [facility] [place], [place] [address] Darrell Sutherland MD 08/08/2024 Orders Only [facility] [address] [facility] [place], [place] [address] Provider, MD Amalia from Last 3 Months Immunizations Immunization Administration Dates Next Due COVID-19 (Pre-12/13) Pfizer Vaccine, mRNA, PF 04/25/2020,04/04/2020 INFLUENZA, SPLIT VIRUS, TRIVALENT PF 11/12/2015 INFLUENZA, SPLIT VIRUS, TRIV ALENT W/ PRESERVATIVE IM 10/12/2015,11/23/2011 Influenza High-Dose Quadriva lent Preservative Free IM 11/27/2022,12/07/2021,11/24/2020,10/24 Influenza High-Dose Trivalen t Preservative Free IM 11/23/2023,11/06/2018,10/31/2017,12/24,12/11/2013,11/28/2012 Influenza Trivalent Adjuvant ed Preservative free IM 01/27/2017 Influenza, Unspecified Formulation 11/06,11/24/2010,12/10/2009,10/09 /2009 Pneumococcal conjugate PCV13 01/07/2015 Pneumococcal polysaccharide PPSV23 01/25/2022, RSV Vaccine (monovalent, adjuvanted) 02/22/2023 Td (adult) 5 Lf Tetanus Toxo id, PF, Adsorbed 01/22/2016 Zoster live 11/21/2008 Family History Medical History Relation Comments Hypertension Father Hypertension Mother Hypertension Sister 1 Hypertension Sister 2 Hypertension Sister 3 Relation Status Comments Father (Age 84) copd Mother (Age 84) aortic aneurys m 75.copd Sister 1 Alive Sister 2 Sister 3 Social History Tobacco Use Types Packs/Day Years Used Date Smoking Tobacco: Never Smokeless Tobacco: Never Tobacco Cessation:Counseling Given: Not Answered Alcohol Use Standard Drinks/Week Comments No 0 [...] with a working camera? Not on file Intimate Partner Violence Answer Date R ecorded Denied Basic Needs Not on file 02/24/2024 In the past 12 months have y ou been in a relationship with a person who hurts, threatens, or tries to control you? No 02/24/2024 Worried food would run out Not on file 02/23 In the past 12 months have y ou been in a relationship with a person who hurts, threatens, or tries to control you? No 02/24/2024 Comments No Sex and Gender Information Value Date Recorded Sex Assigned at Not on file Legal Sex Female 10:10 PM EDT Gender Identity Not on file Sexual Orientation Not on file Last Filed Vital Signs Vital Sign Reading Time Taken Comments Blood Pressure 124/82 09/19/2024 11:24 AM EDT Pulse 74 09/19/2024 11:24 AM EDT on room air Temperature 36 C (96.8 F) 09/19/2024 11:24 AM EDT Respiratory Rate 20 09/19/2024 11:2 4 AM EDT Oxygen Saturation 95% 09/19/2024 11: 24 AM EDT on room air Inhaled Oxygen Concentration - - Weight 70.5 kg (155 lb 6.4 oz) 09/20/19 11:24 AM EDT Height 154.9 cm (5' 0.98 ) 09/19/2024 1 1:24 AM EDT Body Mass Index 29.38 09/19/2024 11:24 AM EDT Plan of Treatment Upcoming Encounters Date Type Department Care Team (Latest Contact Info) Description 07/12/2024 Procedure Pass [address] [address] 03/27/2025 1:00 PM EST Office Visit [facility] Internal Medicine [address] [place] [address] Darrell Sutherland MD [address] [place] [address] 07/10/2025 11:10 AM EDT Appointment [address] [address] Ciro Kelley MD [address] [place] [address] Avtar [email or web address] 07/10/2025 12:00 PM EDT Appointment [facility], X-Ray - [address] [address] Ciro Kelley MD [address] [place] [address] Avtar [email or web address] 07/16/2025 3:00 PM EDT Telemedicine - audio only [facility] Radiology [facility] [address] [facility], [address]rd Floor, [place] [address] Ciro Kelley MD [address] [place] [address] [email or web address] Health Maintenance Due Date Last Done Comments ZOSTER VACCINES (1 of 2) 01/16/2009 11/21/2008 FOLLOW UP BONE DENSITY TESTING 07/15/2019 07/14/2017 INFLUENZA VACCINE (#1) 2024 , 11/27/2022, 11/27/2022, Additional history exists COVID-19 VACCINE ( season) 2024 11/07/2023, 12/16/2022, 01/22/2022, Additional history exists DEPRESSION SCREENING 02/23/2025 02/24/2024, 01/28/20 23 BLOOD PRESSURE 03/22/2025 09/19/2024 CREATININE LEVEL 08/07/2025 08/07/2024, , 02/24/2024, Additional history exists POTASSIUM LEVEL 08/07/2025 08/07/2024, 07/22, 02/24/2024, Additional history exists Adult Td,Tdap Booster 01/21/2026 01/22/2016 OSTEOPOROSIS SCREENING INITIAL (ONE-TIME) Completed 07/14/2017 PNEUMOCOCCAL VACCINES (50+ years) Completed 01/25/2022, 01/07/2015, 11/24/2010 RSV VACCINE Completed 02/22/2023 HEPATITIS A VACCINES Aged Out No long er eligible based on patient's age to complete this topic HIB VACCINES Aged Out No longer eligi ble based on patient's age to complete this topic MENINGOCOCCAL VACCINES (ACWY) Aged Out No longer eligible based on patient's age to complete this topic MENINGOCOCCAL VACCINES (B) Aged Out N o longer eligible based on patient's age to complete this topic Medical Devices Not on file Procedures Procedure Name Priority Date/Time Associated Diagnosis Comments BI MAMMOGRAM SCREENING (BILATERAL) Routine 09/19/2024 12:20 PM EDT Screening mammogram for breast cancer OUTSIDE ECHO Routine 09/11/2024 2:[address] CHEST REPORT ONLY Routine 09/11/2024 10:01 AM EDT BASIC METABOLIC PANEL Routine 08/07/2024 11:15 AM EDT OUTSIDE POTASSIUM LEVEL Routine 08/07/2024 OUTSIDE SERUM CREATININE LEVEL Routine 08/07/2024 OUTSIDE BONE DENSITY SCREENING Routine 07/14/2017 from Last 3 Months or Most Recently Relevant to Health Maintenance Results * Outside Echo Report Only (09/11/2024 2:15 PM EDT) Result [facility] Provider CV ECHO ORDERABLES Final Result * Outside CT??Chest Report Only (09/11/2024 10:01 AM EDT) Result [facility] Provider IMG CT CHEST Final Res ult * Basic metabolic panel (08/07/2024 11:15 AM EDT) Result [facility] Provider LAB BLOOD ORDERABLES Yuliet l Result * Outside Potassium Level (08/07/2024) Potassium level - External 4.0 3.4 - 5.0 mmol/L EXTERNAL NON-INTERFACED REF LAB Result [facility] Provider LAB BLOOD ORDERABLES Yuliet l Result EXTERNAL NON-INTERFACED REF LAB * (ABNORMAL) Outside Serum Creatinine Level (08/07/2024) Creatinine, serum - External 0.75(A) 0.8 - 1.3 mg/dL EXTERNAL NON-INTERFACED REF LAB Result [facility] Provider LAB BLOOD ORDERABLES Yuliet l Result EXTERNAL NON-INTERFACED REF LAB * OUTSIDE BONE DENSITY SCREENING (07/14/2017) BONE DENSITY SCREENING - EXTERNAL 2 yr recall Result [facility] [employer] Final Result from Last 3 Months or Most Recently Relevant to Health Maintenance Insurance MEDICARE PART A & B [employer] SUPPLEMENT MEDICARE PART A & B [employer] SUPPLEMENT MEDICARE PART A & B [employer] SUPPLEMENT MEDICARE PART A & B [employer] SUPPLEMENT [facility] & B [employer] SUPPLEMENT MEDICARE PART A & B [employer] SUPPLEMENT MEDICARE PART A & B Member Subscriber Plan / Payer (Ef fective 2007-) Name:Sudha George Member ID:[id number] Relation to Subscriber:Self Name:Sudha George Subscriber ID:[id number] Payer ID:[id number] Group ID:Not on file Type:Medicare Address: [employer] [address] [employer] SUPPLEMENT MEDICARE PART A & B [employer] SUPPLEMENT Care Teams Loading Machine Operator Helper Relationship Specialty Start Date End Date Darrell Sutherland MD [address] [place] [address] [email or web address] PCP - General Internal Medicine 01/11/17 Darrell Sutherland MD [address] [place] [address] [email or web address] Insurance Assigned Provider 05/28/23 Travis Monge MD [address] [place] [address] [place] [address] Pulmonary Disease 06/01/22 Additional Source Comments The information contained in this document represents components of the legal health record. It is not the complete legal health record.[facility]
--- OUTSIDE RECORDS SUMMARY | 2024-10-30 12:39 | XMS_ITS | Patient Health Record ---
Author Organization [facility] Address [address] [place] [address] Care Team Providers Care Instructional Designer Name Role Phone Darrell Sutherland MD Primary Care Provider Jay Talbot Unavailable [phone] Allergies No Known Allergies Reason For Referral [...] Risk Notes Problem Diverticular disease of colon (321196445) Diverticulosis of large intestine without perforation or abscess without bleeding (K57.30) Active confirmed Problem Gastrointestinal hemorrhage (69848817) Lower GI bleed (K92.2) Active confirmed Plan Of Treatment Future Test Test Name Order Date COLONOSCOPY 02/27/2013 COLONOSCOPY 05/12/2023 Insurance Providers Payer Name Payer Address Payer Phone Subscriber Number Group Number Insured Name Patient Relationship to Insured Coverage Start Date Coverage End Date MEDICARE OF [place] [address] [facility] [place] [address] [id number] ROLAN GEORGE Self - patient is the insured MEDEX ATTN CLAIMS [address] [place] [address] [id number] ROLAN GEORGE Self - patient is the insured Medical (General) History Medical History History ICD Code Choledocholithiasis--removed via ERCP in 02/2010 prior to Lap [facility]Y Hypertension Denies ND,DM,CVA,renal disease AFIB - Dr. Ryan--Unsuccessful cardiover shanthi 02/2023 Interstitiail lung disease-Dr. Monge --sleeps with oxygen Ablation of a cancer in the right kidney 05/2022 at [facility] Negative colonoscopy in 06/2013 Lower GI bleed 05/04/2023 Surgical History Surgery Date(Month/Year) Knee surgery Cholecystectomy 2010
--- OUTSIDE RECORDS SUMMARY | 2024-10-30 12:40 | XMS_ITS | Encounter Summary ---
Author Organization [facility] Address [address] [place] [address] Phone Care Team Providers Care Compliance Intern Name Role Phone Darrell Sutherland MD Unavailable [phone] Radha Giron PLATFORM BUILDER Unavailable [phone] Kianna Abreu PLATFORM BUILDER Unavailable [phone] Ky Barone MAILROOM CLERK Unavailable Darrell Sutherland MD Primary Care Provider [phone] Darrell Sutherland MD Unavailable Travis Monge MD Unavailable Melanie Henson RN Unavailable Encounter Details Date Type Department Care Team (Latest Contact Info) Description 06/01/2017 Transcribe Orders [facility] Laboratory [address] [place], [place] [phone] Darrell Sutherland MD [address] [place], [place] [phone] [email or web address] Pure hypercholesterolemia (Primary Dx); Essential hypertension, benign; Vitamin D deficiency Social History Tobacco Use Types Packs/Day Years Used Date Smoking Tobacco: Never Smokeless Tobacco: Never Alcohol Use Standard Drinks/Week Comments No 0 (1 standard drink = 0.6 oz pur e alcohol) Comments Unknown Sex and Gender Information Value Date Recorded Sex Assigned at Not on file Legal Sex Female 10:10 PM EDT Gender Identity Not on file Sexual Orientation Not on file documented as of this encounter Plan of Treatment Upcoming Encounters Date Type Department Care Team (Latest Contact Info) Description 07/12/2024 Procedure Pass [address] [address] 03/27/2025 1:00 PM EST Office Visit [facility] Internal Medicine [address] [place] [address] Darrell Sutherland MD [address] [place] [address] 07/10/2025 11:10 AM EDT Appointment [address] [address] Ciro Kelley MD [address] [place] [address] Avtar [email or web address] 07/10/2025 12:00 PM EDT Appointment [facility] X-Ray - [address] [address] Ciro Kelley MD [address] [place] [address] Avtar [email or web address] 07/16/2025 3:00 PM EDT Telemedicine - audio only [facility] Radiology Cross [facility] [address] [facility], 3rd Floor, [place] [address] Ciro Kelley MD [address] [place] [address] Avtar [email or web address] documented as of this encounter Results * (ABNORMAL) 25-OH vitamin D (06/01/2017 8:19 AM EDT) 25 OH VIT D (TOTAL) 24(L) 30 - 1,000 ng/mL [facility] Blood 06/01/2017 8:19 AM EDT 06/01/2017 8:23 AM EDT us Darrell Sutherland MD LAB BLOOD ORDERABLES Final Re sult [address] [address] * Magnesium (06/01/2017 8:19 AM EDT) [facility] MAGNESIUM 2.1 1.6 - 2.6 mg/dL [facility] Blood 06/01/2017 8:19 AM EDT 06/01/2017 8:23 AM EDT us Darrell Sutherland MD LAB BLOOD ORDERABLES Final Re sult [address] [address] * Comprehensive metabolic panel (06/01/2017 8:19 AM EDT) Pathologist [facility] SODIUM 141 133 - 146 mmol/L [facility] POTASSIUM 3.8 3.3 - 5.1 mmol/L [facility] CHLORIDE 101 96 - 108 mmol/L [facility] CO2 27 21 - 35 mmol/L [facility] BUN 18 6 - 19 mg/dL [facility] CREATININE 0.60 0.5 - 1.5 mg/dL [facility] GLUCOSE 92 70 - 99 mg/dL [facility] ALBUMIN 4.1 3.9 - 4.8 g/dL [facility] TOTAL PROTEIN 7.2 6.5 - 8.0 g/dL [facility] CALCIUM 9.3 8.4 - 10.3 mg/dL [facility] ALKALINE PHOSPHATASE 71 39 - 117 U/L [facility] TOTAL BILIRUBIN 0.4 0.0 - 1.2 mg/dL [facility] AST 21 0 - 37 U/L [facility] ALT 20 0 - 40 U/L [facility] GLOBULIN 3.1 1 - 4.8 g/dL [facility] EGFR 90 >59 mL/min/1.7 3m2 [facility] Comment:If patient is black, multiply result by 1.159. The eGFR calculation has changed from the MDRD equation to the CKD-EPI equation as of April 26, 2017. ANION GAP 17 10 - 20 mmol/L [facility] Blood 06/01/2017 8:19 AM EDT 06/01/2017 8:23 AM EDT us Darrell Sutherland MD LAB BLOOD ORDERABLES Final Re sult Performing Organization Address [facility] Co de Phone Number [address] [address] * TSH (06/01/2017 8:19 AM EDT) TSH 1.86 0.27 - 4.20 uIU/mL [facility] Blood 06/01/2017 8:19 AM EDT 06/01/2017 8:23 AM EDT us Darrell Sutherland MD LAB BLOOD ORDERABLES Final Re sult Performing Organization Address [facility] Co de Phone Number [address] [address] * Lipid panel (06/01/2017 8:19 AM EDT) HDL 46 mg/dL [facility] Comment: Interpretation: Risk Level Females Decreased >55mg/dL Average 50-55 mg/dL Increased <50 mg/dL CHOLESTEROL 191 0 - 240 mg/dL [facility] TRIGLYCERIDES 153 30 - 160 mg/dL [facility] LDL 114 50 - 129 mg/dL [facility] Comment: LDL levels in terms of risk for coronary heart disease: <100 mg/dL: Optimal 100-129 mg/dL: Near or above optimal 130-159 mg/dL: Borderline high 160-189 mg/dL: High >190 mg/dL: Very High CARDIAC RISK RATIO 4.2 3.3 - 4.4 C [facility] Blood 06/01/2017 8:19 AM EDT 06/01/2017 8:23 AM EDT us Darrell Sutherland MD LAB BLOOD ORDERABLES Final Re sult Performing Organization Address [facility]/ZIP Co de Phone Number [address] [address] * (ABNORMAL) CBC (06/01/2017 8:19 AM EDT) WBC 6.60 3.40 - 11.20 K/uL [facility] RBC 4.84(H) 3.80 - 4.80 M/uL [facility] HGB 13.8 12.0 - 15.0 g/dL [facility] HCT 42.8 36.0 - 46.0 % [facility] PLT 226 130 - 400 K/uL [facility] MCV 88.4 79.0 - 98.0 fL [facility] MCH 28.5 27.0 - 34.8 pg [facility] MCHC 32.2 31.5 - 36.0 g/dL [facility] RDW 14.2 10.8 - 14.6 % [facility] MPV 10.0 9.4 - 12.4 fl [facility] NRBC 0.00 /100 WBCs [facility] ABSOLUTE NRBC 0.00 K/uL [facility] Blood 06/01/2017 8:19 AM EDT 06/01/2017 8:23 AM EDT us Darrell Sutherland MD LAB BLOOD ORDERABLES Final Re sult Performing Organization Address City/[facility]/ZIP Co de Phone Number [address] [address] documented in this encounter Visit Diagnoses Diagnosis Pure hypercholesterolemia- Primary Essential hypertension, benign Vitamin D deficiency documented in this encounter Additional Health Concerns Infection Onset Date Last Indicated Resolved Time CoV-Risk 07/13/2023 07/13/2023 07/24/2023 1:22 AM EDT Assessment Noted Time PHQ-2 Depression Total Score: 0 04/30/19 18 10:53 AM EST documented as of this encounter Care Teams Compliance Intern Relationship Specialty Start Date End Date Darrell Sutherland MD [address] [place] [address] PCP - General Internal Medicine 01/11/17 Darrell Sutherland MD [address] [place] [address] Historical LMR Provider 12/11/16 07/31/20 Radha Giron, PLATFORM BUILDER [address] [place] [address] [address] [place] [address] Historical LMR Provider 12/11/16 Kianna Abreu NP [address] [place] [address] [address] [place] [address] Historical LMR Provider 12/11/16 07/31/20 Ky Barone CNP [address] [facility] [place] [address] Historical LMR Provider 12/11/[address]/31 Darrell Sutherland MD [address] [place] [address] Insurance Assigned Provider 05/28/23 Travis Monge MD [address] [place] [address] [place] [address] Pulmonary Disease 06/01/22 Melanie Henson, RN [address] [place] [address] [email or web address] Marine Gear Keeper 09/19/23 10/24/23 documented as of this encounter Additional Source Comments The information contained in this document represents components of the legal health record. It is not the complete legal health record.[facility]
--- OUTSIDE RECORDS SUMMARY | 2024-10-30 12:40 | XMS_ITS | Encounter Summary ---
Author Organization [facility] Address [address] [employer] [address] [address] Phone Care Team Providers Care Yardage Estimator Name Role Phone Darrell Sutherland MD Primary Care Provider [phone] Darrell Sutherland MD Unavailable [phone] Travis Monge MD Unavailable Melanie Henson RN Unavailable [phone] Encounter Details Date Type Department Care Team (Late st Contact Info) Description 01/18/2023 Procedure Pass [facility], [address] [address] Social History Tobacco Use Types Packs/Day Years [...] (Latest Contact Info) Description 07/12/2024 Procedure Pass [address] [address] 03/27/2025 1:00 PM EST Office Visit [facility] [address] [place] [address] Darrell Sutherland MD 40 [place] [address] 07/10/2025 11:10 AM EDT Appointment [address] [address] Ciro Kelley MD [address] [place] [address] Avtar [email or web address] 07/10/2025 12:00 PM EDT Appointment [facility], X-Ray - [address] [address] Ciro Kelley MD [address] [place] [address] Avtar [email or web address] 07/16/2025 3:00 PM EDT Telemedicine - audio only [facility] Radiology [facility] 70 [facility], 3rd Floor, [place] [address] Ciro Kelley MD [address] [place] [address] Avtar [email or web address] documented as of this encounter Visit Diagnoses Not on filedocumented in this encounter Additional Health Concerns Infection Onset Date Last Indicated Resolved Time CoV-Risk 07/13/2023 07/13/2023 07/24/2023 1:22 AM EDT Assessment Noted Time PHQ-9 Depression Total Score: 6 01/28/20 23 12:49 PM EST PHQ-2 Depression Total Score: 4 01/28/20 23 12:49 PM EST documented as of this encounter Care Teams Yardage Estimator Relationship Specialty Start Date End Date Darrell Sutherland MD 40 [place] [address] [email or web address] PCP - General Internal Medicine 01/11/17 Darrell Sutherland MD 40 [place] [address] Insurance Assigned Provider 05/28/23 Travis Monge MD [address] [place] [address] [place] [address] Pulmonary Disease 06/01/22 Melanie Henson, RN [address] [place] [address] [id number] [email or web address] iCMP Dials Supervisor 09/19/23 10/24/23 documented as of this encounter Additional Source Comments The information contained in this document represents components of the legal health record. It is not the complete legal health record.[facility]
--- OUTSIDE RECORDS SUMMARY | 2024-10-30 12:40 | XMS_ITS | Encounter Summary ---
Author Organization [facility] Address [address] [employer] [facility] [address] [place] [address] Phone Care Team Providers Care Retort Loader Name Role Phone Darrell Sutherland MD Primary Care Provider Darrell Sutherland MD Unavailable [phone] Travis Monge MD Unavailable Melanie Henson RN Unavailable [phone] Encounter Details Date Type Department Care Team (Late st Contact Info) Description 07/26/2023 Procedure Pass [facility], [address] [address] Social History Tobacco Use Types Packs/Day Years [...] ecorded Denied Basic Needs Not on file 01/27/2023 In the past 12 months have y ou been in a relationship with a person who hurts, threatens, or tries to control you? No 01/27/2023 Worried food would run out Not on file 01/27 In the past 12 months have y ou been in a relationship with a person who hurts, threatens, or tries to control you? No 01/27/2023 Comments No Sex and Gender Information Value Date Recorded Sex Assigned at Not on file Legal Sex Female 10:10 PM EDT Gender Identity Not on file Sexual Orientation Not on file documented as of this encounter Plan of Treatment Upcoming Encounters Date Type Department Care Team (Latest Contact Info) Description 07/12/2024 Procedure Pass [address] [address] 03/27/2025 1:00 PM EST Office Visit [facility] Internal Medicine 40 [place] [address] Darrell Sutherland MD 40 [place] [address] 07/10/2025 11:10 AM EDT Appointment [address] [address] Ciro Kelley MD [address] [place] [address] Avtar [email or web address] 07/10/2025 12:00 PM EDT Appointment [facility], X-Ray - [address] [address] Ciro Kelley MD [address] [place] [address] Avtar [email or web address] 07/16/2025 3:00 PM EDT Telemedicine - audio only [facility] Radiology [facility] [address] [place] [address], 3rd Floor, [place] [address] Ciro Kelley MD [address] [place] [address] Avtar [email or web address] documented as of this encounter Visit Diagnoses Not on filedocumented in this encounter Additional Health Concerns Assessment Noted Time PHQ-9 Depression Total Score: 6 01/28/20 23 12:49 PM EST PHQ-2 Depression Total Score: 0 02/23/19 25 12:42 PM EST documented as of this encounter Care Teams Retort Loader Relationship Specialty Start Date End Date Darrell Sutherland MD [address] [place] [address] PCP - General Internal Medicine 01/11/17 Darrell Sutherland MD 40 [place] [address] Insurance Assigned Provider 05/28/23 Travis Monge MD [address] [place] [address] [place] [address] Pulmonary Disease 06/01/22 Melanie Henson, RN [address] [place] [address] [phone] iCMP Subway Train Driver 09/19/23 10/24/23 documented as of this encounter Additional Source Comments The information contained in this document represents components of the legal health record. It is not the complete legal health record.[facility]
--- OUTSIDE RECORDS SUMMARY | 2024-10-30 12:40 | XMS_ITS | Encounter Summary ---
Author Organization [facility] Address [address] [place] [address] Phone Care Team Providers Care Distribution Analyst Name Role Phone Darrell Sutherland MD Primary Care Provider [phone] Darrell Sutherland MD Unavailable [phone] Travis Monge MD Unavailable [phone] Melanie Henson RN Unavailable [phone] Encounter Details Date Type Department Care Team (Late st Contact Info) Description 06/08/2022 Procedure Pass [facility] Periop [address] [place] [address] Social History Tobacco Use Types Packs/Day Years [...] (Latest Contact Info) Description 07/12/2024 Procedure Pass [facility], [facility] [address] [place] [address] 03/27/2025 1:00 PM EST Office Visit [facility] Internal Medicine [address] [place] [address] Darrell Sutherland MD 40 [place] [address] [email or web address] 07/10/2025 11:10 AM EDT Appointment [facility] Mri - [address] [address] Ciro Kelley MD 55 [place] [address] Avtar [email or web address] 07/10/2025 12:00 PM EDT Appointment [facility] X-Ray [address] [address] Ciro Kelley MD [address] [place] [address] Avtar [email or web address] 07/16/2025 3:00 PM EDT Telemedicine - audio only [facility] Radiology Cross [facility] Clinic 70 [facility], 3rd Floor, [place] [address] Ciro Kelley MD [address] [place] [address] Avtar [email or web address] documented as of this encounter Visit Diagnoses Not on filedocumented in this encounter Additional Health Concerns Infection Onset Date Last Indicated Resolved Time CoV-Risk 07/13/2023 07/13/2023 07/24/2023 1:22 AM EDT Assessment Noted Time PHQ-2 Depression Total Score: 0 01/26/20 12:55 PM EST documented as of this encounter Care Teams Distribution Analyst Relationship Specialty Start Date End Date Darrell Sutherland MD 40 [place] [address] PCP - General Internal Medicine 01/11/17 Darrell Sutherland MD [address] [place] [address] [email or web address] Insurance Assigned Provider 05/28/23 Travis Monge MD [address] [place] [address] [place] [address] Pulmonary Disease 06/01/22 Melanie Henson, RN [address] [place] [address] [email or web address] iCMP Track Superintendent 09/19/23 10/24/23 documented as of this encounter Additional Source Comments The information contained in this document represents components of the legal health record. It is not the complete legal health record.[facility]
--- OUTSIDE RECORDS SUMMARY | 2024-10-30 12:40 | XMS_ITS | Encounter Summary ---
Author Organization [facility] Address [address] [employer] [address] [address] Phone Care Team Providers Care Oracle Manager Name Role Phone Darrell Sutherland MD Primary Care Provider Darrell Sutherland MD Unavailable [phone] Travis Monge MD Unavailable Melanie Henson RN Unavailable [phone] Encounter Details Date Type Department Care Team (Late st Contact Info) Description 03/23/2022 Procedure Pass [facility] Ct Scan [address] [address] Social History Tobacco Use Types Packs/Day Years [...] Team (Latest Contact Info) Description 07/12/[address] [address] 03/27/2025 1:00 PM EST Office Visit [facility] Internal Medicine [address] [place] [address] Darrell Sutherland MD 40 [place] [address] 07/10/2025 11:10 AM EDT Appointment [facility] Mri - [address] [address] Ciro Kelley MD 55 [place] [address] Avtar [email or web address] 07/10/2025 12:00 PM EDT Appointment [facility] X-Ray [address] [address] Ciro Kelley MD 55 [place] [address] Avtar [email or web address] 07/16/2025 3:00 PM EDT Telemedicine - audio only [facility] Radiology Cross Sectional Clinic 70 [facility], 3rd Floor, [place] [address] Ciro Kelley MD [address] [place] [address] Avtar [email or web address] documented as of this encounter Visit Diagnoses Not on filedocumented in this encounter Additional Health Concerns Infection Onset Date Last Indicated Resolved Time CoV-Risk 07/13/2023 07/13/2023 07/24/2023 1:22 AM EDT Assessment Noted Time PHQ-2 Depression Total Score: 0 01/26/20 12:55 PM EST documented as of this encounter Care Teams Oracle Manager Relationship Specialty Start Date End Date Darrell Sutherland MD [address] [place] [address] [email or web address] PCP - General Internal Medicine 01/11/17 Darrell Sutherland MD [address] [place] [address] [email or web address] Insurance Assigned Provider 05/28/23 Travis Monge MD [address] [place] [address] [place] [address] Pulmonary Disease 06/01/22 Melanie Henson, RN [address] [place] [address] [phone] [email or web address] iCMP Music Historian 09/19/23 10/24/23 documented as of this encounter Additional Source Comments The information contained in this document represents components of the legal health record. It is not the complete legal health record.[facility]
--- OUTSIDE RECORDS SUMMARY | 2024-10-30 12:40 | XMS_ITS | Clinical Summary ---
Author Organization [facility] Address [address] [place] [address] Phone Care Team Providers Care Iv Rn Name Role Phone Darrell Sutherland MD Primary [...] PM EST [facility]ointment [facility] [address] [address] Health Maintenance Due Date Last [...] age to complete this topic Insurance MEDICARE [facility] Care Teams Iv Rn Relationship Specialty Start Date End Date Darrell S[place] MD [address] [place] [address] PCP - General Internal Medicine 12/12/23
== END 2024-10-30 10:42 | disposition home or self-care (01) ==
LOC: HO.RESP 10:41
PROVIDERS: PCP Internal Medicine; Visit Provider Hospitalist
DX: J84.9 Interstitial pulmonary disease, unspecified (principal); Z87.891 Personal history of nicotine dependence
CPT/HCPCS: 94010; 94727; 94729

== ENCOUNTER → 2024-10-30 10:44 | Outpatient (BNV) | payer MEDICARE, SELFPAY | PROVIDERS: PCP Internal Medicine; Visit Provider Hospitalist | DX: J84.9 Interstitial pulmonary disease, unspecified (principal) | CPT/HCPCS: 94060; 94727; 94729 ==

== ENCOUNTER 2024-11-02 09:41 | Outpatient (AMB) | payer MEDICARE, SELFPAY ==
[2024-11-02 10:14] LABS: Prothrombin Time Whole Bld POC 35.7 sec (11.1-13.5); ~PT, ~INR - Anti Coag Clinic 3.0 (0.9-1.1)
--- NOTE | 2024-11-02 10:26 | MHC.OFFVISCO ---
Intake Intake Visit Reasons: Anticoagulation Allergies amlodipine Allergy (Intermediate, Verified 11/02/24 10:05) Difficulty Breathing latex (LATEX) Allergy (Intermediate, Verified 11/02/24 10:05) RASH seasonal Allergy (Intermediate, Uncoded 11/02/24 10:05) Sneezing altace Adverse Reaction (Mild, Uncoded 11/02/24 10:05) Cough Medication List - Last Reconciled 11/02/24 by Farheen Pruett RN atenolol 50 mg PO BID cholecalciferol (vitamin D3) 25 mcg PO DAILY digoxin 125 mcg PO DAILY furosemide (Lasix) 20 mg PO DAILY PRN olmesartan 20 mg PO DAILY Oxygen Home Use As directed warfarin 5 mg See Protocol PO DAILY Nursing Note INR: 3.0 in therapeutic range Medications and supplements reviewed Pt has been eating greens weekly along with green tea and INR remains in upper range, pt prefers mid range INR Denies any signs and symptoms of bleeding or bruising or clotting. 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 Illness/Depression: No Coding Level of Care Code Est Patient Level 1 Diagnoses Current use of anticoagulant therapy Z79.01 Results AMB INR Fingerstick AMB INR Fingerstick 3.0 Last Edit by Farheen Pruett RN on 11/02/24 10:23 MANUAL ENTRY Assessment & Plan Assessment & Plan (1) Current use of anticoagulant therapy: Code(s): Z79.01 - terminal block assembler (current) use of anticoagulants Category: Medical
--- OUTSIDE RECORDS SUMMARY | 2024-11-02 10:50 | XMS_ITS | Encounter Summary ---
Author Organization [facility] Address [address] [employer] [address] [address] Phone Care Team Providers Care Embedded Processor Name Role Phone Darrell Sutherland MD Primary Care Provider Darrell Sutherland MD Unavailable [phone] Travis Monge MD Unavailable Melanie Henson RN Unavailable [phone] Encounter Details Date Type Department Care Team (Late st Contact Info) Description 07/20/2022 Procedure Pass [facility], [address] [address] Social History Tobacco Use Types Packs/Day Years [...] (Latest Contact Info) Description 07/12/2024 Procedure Pass [address] [address] 03/27/2025 1:00 PM EST Office Visit [facility] Internal Medicine 40 [place] [address] Darrell Sutherland MD 40 [place] [address] 07/10/2025 11:10 AM EDT Appointment [address] [address] Ciro Kelley MD [address] [place] [address] Avtar [email or web address] 07/10/2025 12:00 PM EDT Appointment [facility], X-Ray - [address] [address] Ciro Kelley MD [address] [place] [address] Avtar [email or web address] 07/16/2025 3:00 PM EDT Telemedicine - audio only [facility] Radiology Cross [facility]al Clinic 70 [facility], 3rd Floor, [place] [address] Ciro Kelley MD [address] [place] [address] Avtar [email or web address] documented as of this encounter Visit Diagnoses Not on filedocumented in this encounter Additional Health Concerns Infection Onset Date Last Indicated Resolved Time CoV-Risk 07/13/2023 07/13/2023 07/24/2023 1:22 AM EDT Assessment Noted Time PHQ-2 Depression Total Score: 0 01/26/20 12:55 PM EST documented as of this encounter Care Teams Embedded Processor Relationship Specialty Start Date End Date Darrell Sutherland MD 40 [place] [address] [email or web address] PCP - General Internal Medicine 01/11/17 Darrell Sutherland MD [address] [place] [address] Insurance Assigned Provider 05/28/23 Travis Monge MD [address] [place] [address] [place] [address] Pulmonary Disease 06/01/22 Melanie Henson, RN [address] [place] [address] [email or web address] iCMP Hand Cloth Folder 09/19/23 10/24/23 documented as of this encounter Additional Source Comments The information contained in this document represents components of the legal health record. It is not the complete legal health record.[facility]
--- OUTSIDE RECORDS SUMMARY | 2024-11-02 10:50 | XMS_ITS | Encounter Summary ---
Author Organization [facility] Address [address] [address] Phone Care Team Providers Care Family Life Counselor Name Role Phone Darrell Sutherland MD Primary Care Provider [phone] Darrell Sutherland MD Unavailable [phone] Travis Monge MD Unavailable Melanie Henson RN Unavailable Encounter Details Date Type Department Care Team (Late st Contact Info) Description 06/10/2022 Telephone [facility] [address] [place] [address] Wanda Trevino, RN [address] [place] [address] [email or web address] Social History Tobacco Use Types Packs/Day Years [...] (Latest Contact Info) Description 07/12/2024 Procedure Pass [facility], [address] [address] 03/27/2025 1:00 PM EST Office Visit [facility] Internal Medicine [address] [place] [address] Darrell Sutherland MD 40 [place] [address] 07/10/2025 11:10 AM EDT Appointment [facility], Mri - [address] [address] Ciro Kelley MD 55 [place] [address] Avtar [email or web address] 07/10/2025 12:00 PM EDT Appointment [facility] X-Ray - [address] [address] Ciro Kelley MD [address] [place] [address] Avtar [email or web address] 07/16/2025 3:00 PM EDT Telemedicine - audio only [facility] Radiology [facility] [address] [place] [address], 3rd Floor, [place] [address] Ciro Kelley MD [address] [place] [address] Avtar [email or web address] documented as of this encounter Visit Diagnoses Not on filedocumented in this encounter Additional Health Concerns Infection Onset Date Last Indicated Resolved Time CoV-Risk 07/13/2023 07/13/2023 07/24/2023 1:22 AM EDT Assessment Noted Time PHQ-2 Depression Total Score: 0 01/26/20 12:55 PM EST documented as of this encounter Care Teams Family Life Counselor Relationship Specialty Start Date End Date Darrell Sutherland MD [address] [place] [address] [email or web address] PCP - General Internal Medicine 01/11/17 Darrell Sutherland MD [address] [place] [address] [email or web address] Insurance Assigned Provider 05/28/23 Travis Monge MD [address] [place] [address] [place] [address] Pulmonary Disease 06/01/22 Melanie Henson, RN [address] [place] [phone] [email or web address] iCMP Manager Human Resources 09/19/23 10/24/23 documented as of this encounter Additional Source Comments The information contained in this document represents components of the legal health record. It is not the complete legal health record.[facility]
--- OUTSIDE RECORDS SUMMARY | 2024-11-02 10:50 | XMS_ITS | Encounter Summary ---
Author Organization [facility] Address [address] [employer] [place]34[address] [place] [address] Phone Care Team Providers Care Office Services Representative Name Role Phone Darrell Sutherland MD Primary Care Provider Darrell Sutherland MD Unavailable [phone] Travis Monge MD Unavailable [phone] Melanie Henson RN Unavailable Encounter Details Date Type Department Care Team (Late st Contact Info) Description 03/23/2022 Procedure Pass [facility] Ct Scan [address] [address] Social History Tobacco Use Types Packs/Day Years [...] Team (Latest Contact Info) Description 07/12/[address] [address] 03/27/2025 1:00 PM EST Office Visit [facility] Internal Medicine [address] [place] [address] Darrell Sutherland MD 40 [place] [address] 07/10/2025 11:10 AM EDT Appointment [facility] Mri - [address] [address] Ciro Kelley MD 55 [place] [address] Avtar [email or web address] 07/10/2025 12:00 PM EDT Appointment [facility] X-Ray [address] [address] Ciro Kelley MD 55 [place] [address] Avtar [email or web address] 07/16/2025 3:00 PM EDT Telemedicine - audio only [facility] Radiology Cross [facility]al Clinic 70 [facility], 3rd Floor, [place] [address] Ciro Kelley MD [address] [place] [address] Avtar [email or web address] documented as of this encounter Visit Diagnoses Not on filedocumented in this encounter Additional Health Concerns Infection Onset Date Last Indicated Resolved Time CoV-Risk 07/13/2023 07/13/2023 07/24/2023 1:22 AM EDT Assessment Noted Time PHQ-2 Depression Total Score: 0 01/26/20 12:55 PM EST documented as of this encounter Care Teams Office Services Representative Relationship Specialty Start Date End Date Darrell Sutherland MD [address] [place] [address] [email or web address] PCP - General Internal Medicine 01/11/17 Darrell Sutherland MD [address] [place] [address] [email or web address] Insurance Assigned Provider 05/28/23 Travis Monge MD [address] [place] [address] [place] [address] Pulmonary Disease 06/01/22 Melanie Henson, RN [address] [place] [address] [phone] [email or web address] iCMP Real Estate Services Coordinator 09/19/23 10/24/23 documented as of this encounter Additional Source Comments The information contained in this document represents components of the legal health record. It is not the complete legal health record.[facility]
--- OUTSIDE RECORDS SUMMARY | 2024-11-02 10:50 | XMS_ITS | Clinical Summary ---
Author Organization [facility] Address [address] [place] [address] Phone Care Team Providers Care Contract Writer Name Role Phone Darrell Sutherland MD Primary Care Provider [phone] Surgical History Surgery Date Site/Laterality Comments US [...] PM EST Appointment [facility] [address] [address] Health Maintenance Due Date Last [...] age to complete this topic Insurance MEDICARE [facility] Care Teams Contract Writer Relationship Specialty Start Date End Date Darrell Sutherland MD [address] [place] [phone] PCP - General Internal Medicine 12/12/23
--- OUTSIDE RECORDS SUMMARY | 2024-11-02 10:50 | XMS_ITS | Encounter Summary ---
Author Organization [facility] Address [address] [place] [address] Phone Care Team Providers Care Director Of Agronomy Name Role Phone Darrell Sutherland MD Primary Care Provider [phone] Darrell Sutherland MD Unavailable [phone] Travis Monge MD Unavailable Melanie Henson RN Unavailable [phone] Encounter Details Date Type Department Care Team (Late st Contact Info) Description 06/15/[address] [address] Social History Tobacco Use Types Packs/Day Years [...] Team (Latest Contact Info) Description 07/12/[address] [address] 03/27/2025 1:00 PM EST Office Visit [facility] Internal Medicine [address] [place] [address] Darrell Sutherland MD 40 [place] [address] 07/10/2025 11:10 AM EDT Appointment [facility] Mri [address] [address] Ciro Kelley MD [address] [place] [address] Avtar [email or web address] 07/10/2025 12:00 PM EDT Appointment [facility] X-Ray [address] [address] Ciro Kelley MD [address] [place] [address] Avtar [email or web address] 07/16/2025 3:00 PM EDT Telemedicine - audio only [facility] Radiology [facility] 70 [facility], 3rd Floor, [place] [address] Ciro Kelley MD [address] [place] [address] Avtar [email or web address] documented as of this encounter Visit Diagnoses Not on filedocumented in this encounter Additional Health Concerns Infection Onset Date Last Indicated Resolved Time CoV-Risk 07/13/2023 07/13/2023 07/24/2023 1:22 AM EDT Assessment Noted Time PHQ-2 Depression Total Score: 0 01/26/20 12:55 PM EST documented as of this encounter Care Teams Director Of Agronomy Relationship Specialty Start Date End Date Darrell Sutherland MD [address] [place] [address] [email or web address] PCP - General Internal Medicine 01/11/17 Darrell Sutherland MD 40 [place] [address] [email or web address] Insurance Assigned Provider 05/28/23 Travis Monge MD [address] [place] [address] [place] [address] Pulmonary Disease 06/01/22 Melanie Henson, RN [address] [place] [address] [id number] [email or web address] iCMP Dictating Machine Typist 09/19/23 10/24/23 documented as of this encounter Additional Source Comments The information contained in this document represents components of the legal health record. It is not the complete legal health record.[facility]
--- OUTSIDE RECORDS SUMMARY | 2024-11-02 10:50 | XMS_ITS | Clinical Summary ---
Author Organization [facility] Address [address] [place] [address] Phone Care Team Providers Care Animal Attendants And Trainers Name Role Phone Darrell Sutherland MD Primary Care Provider [phone] Darrell Sutherland MD Unavailable [phone] Travis Monge MD Unavailable Allergies Active [...] every other day. Managed by Dr. [facility] Active olmesartan (BENICAR) 20 mg tablet [...] (11/07/2023): Saw melinda Sevilla/ Adan, 07/26/23 at [facility] [place] sick visit after abnormal imaging- plan [...] Description 09/19/2024 11:30 AM EDT Office Visit [facility] [address] [facility] [place] [address] Darrell Sutherland MD Screening mammogram for breast cancer (Primary Dx); Vitamin D deficiency, unspecified; Pure hypercholesterolemia ; Benign essential hypertension; Impaired fasting glucose 09/19/2024 Orders Only [facility] Internal Medicine [address] [facility] [place] [address] ProviderAmalia MD 09/17/2024 Orders Only [facility] [address] [facility] [place] [address] ProviderAmalia MD 09/07/2024 Documentation [facility] [address] [facility] [place], [place] [address] Darrell Sutherland MD 08/08/2024 Orders Only [facility] Internal Medicine [address] [facility] [place], [place] [address] Provider, MD Amalia from Last 3 Months [...] (Latest Contact Info) Description 07/12/2024 Procedure Pass [address] [address] 03/27/2025 1:00 PM EST Office Visit [facility] Internal Medicine 40 [place] [address] Darrell Sutherland MD 40 [place] [address] 07/10/2025 11:10 AM EDT Appointment [address] [address] Ciro Kelley MD [address] [place] [address] Avtar [email or web address] 07/10/2025 12:00 PM EDT Appointment [facility], X-Ray - [address] [address] Ciro Kelley MD [address] [place] [address] Avtar [email or web address] 07/16/2025 3:00 PM EDT Telemedicine - audio only [facility] Radiology [facility] 70 [facility], 3rd Floor, [place] [address] Ciro Kelley MD [address] [place] [address] Avtar [email or web address] Health Maintenance Due Date Last Done [...] Report Only (09/11/2024 2:15 PM EDT) Result [facility] Provider CV ECHO ORDERABLES Final Result * Outside CT??Chest Report Only (09/11/2024 10:01 AM EDT) Result [facility] Provider IMG CT CHEST Final Res ult * Basic metabolic panel (08/07/2024 11:15 AM EDT) Result [facility] Provider LAB BLOOD ORDERABLES Yuliet l Result * Outside Potassium Level (08/07/2024) Potassium level - External 4.0 3.4 - 5.0 mmol/L EXTERNAL NON-INTERFACED REF LAB Result [facility] Provider LAB BLOOD ORDERABLES Yuliet l Result EXTERNAL NON-INTERFACED REF LAB * (ABNORMAL) Outside Serum Creatinine Level (08/07/2024) Creatinine, serum - External 0.75(A) 0.8 - 1.3 mg/dL EXTERNAL NON-INTERFACED REF LAB Result [facility] Provider LAB BLOOD ORDERABLES Yuliet l Result EXTERNAL NON-INTERFACED REF LAB * OUTSIDE BONE DENSITY SCREENING (07/14/2017) BONE DENSITY SCREENING - EXTERNAL 2 yr recall Result [facility] Ofelia ESTRELLA HEALTH MAINTENANCE Final Result from Last 3 Months or Most Recently Relevant to Health Maintenance Insurance MEDICARE PART A & B [employer] SUPPLEMENT MEDICARE PART A & B [employer] MED[employer] SUPPLEMENT MEDICARE PART A & B [employer] MED[employer] SUPPLEMENT MEDICARE PART A & B [employer] MEDEX SUPPLEMENT MEDICARE PART A & B [facility] MEDICARE PART A & B [employer] MEDEX SUPPLEMENT MEDICARE PART A & B [employer] CROSS MEDEX SUPPLEMENT MEDICARE PART A & B Member Subscriber Plan / Payer (Ef fective 2007-) Name:Sudha George Member ID:[id number] Relation to Subscriber:Self Name:Sudha George Subscriber ID:[id number] Payer ID:[id number] Group ID:Not on file Type:Medicare Address: [employer] [address] [employer] CROSS MEDEX SUPPLEMENT MEDICARE PART A & B BLUE CROSS MEDEX SUPPLEMENT Care Teams Animal Attendants And Trainers Relationship Specialty Start Date End Date Darrell Sutherland MD [address] [place] [address] [email or web address] PCP - General Internal Medicine 01/11/17 Darrell Sutherland MD [address] [place] [address] [email or web address] Insurance Assigned Provider 05/28/23 Travis Monge MD [address] [place] [address] [place] [address] Pulmonary Disease 06/01/22 Additional Source Comments The information contained in this document represents components of the legal health record. It is not the complete legal health record.[facility]
--- OUTSIDE RECORDS SUMMARY | 2024-11-02 10:50 | XMS_ITS | Encounter Summary ---
Author Organization [facility] Address [address] [place] [address] Phone Care Team Providers Care Willow Worker Name Role Phone Darrell Sutherland MD Primary Care Provider Darrell Sutherland MD Unavailable [phone] Travis Monge MD Unavailable Melanie Henson RN Unavailable Encounter Details Date Type Department Care Team (Late st Contact Info) Description 06/08/[address] [facility] Periop [address] [place] [address] Social History Tobacco Use Types Packs/Day Years [...] (Latest Contact Info) Description 07/12/2024 Procedure Pass [facility] 30 [place] [address] 03/27/2025 1:00 PM EST Office Visit [facility] Internal Medicine [address] [place] [address] Darrell Sutherland MD 40 [place] [address] [email or web address] 07/10/2025 11:10 AM EDT Appointment [facility] Mri - [address] [address] Ciro Kelley MD 55 [place] [address] Avtar [email or web address] 07/10/2025 12:00 PM EDT Appointment [facility] X-Ray [address] [address] Ciro Kelley MD [address] [place] [address] Avtar [email or web address] 07/16/2025 3:00 PM EDT Telemedicine - audio only [facility] Radiology [facility] 70 [facility], 3rd Floor, [place] [address] Ciro Kelley MD [address] [place] [address] Avtar [email or web address] documented as of this encounter Visit Diagnoses Not on filedocumented in this encounter Additional Health Concerns Infection Onset Date Last Indicated Resolved Time CoV-Risk 07/13/2023 07/13/2023 07/24/2023 1:22 AM EDT Assessment Noted Time PHQ-2 Depression Total Score: 0 01/26/20 12:55 PM EST documented as of this encounter Care Teams Willow Worker Relationship Specialty Start Date End Date Darrell Sutherland MD [address] [place] [address] [email or web address] PCP - General Internal Medicine 01/11/17 Darrell Sutherland MD [address] [place] [address] [email or web address] Insurance Assigned Provider 05/28/23 Travis Monge MD [address] [place] [address] [place] [address] Pulmonary Disease 06/01/22 Melanie Henson, RN [address] [place] [address] [email or web address] iCMP Retread Builder 09/19/23 10/24/23 documented as of this encounter Additional Source Comments The information contained in this document represents components of the legal health record. It is not the complete legal health record.[facility]
--- OUTSIDE RECORDS SUMMARY | 2024-11-02 10:50 | XMS_ITS | Encounter Summary ---
Author Organization [facility] Address [address] [facility] [facility] [address] [place] [address] Phone Care Team Providers Care Credit Risk Officer Name Role Phone Darrell Sutherland MD Primary Care Provider Darrell Sutherland MD Unavailable [phone] Travis Monge MD Unavailable Melanie Henson RN Unavailable [phone] Encounter Details Date Type Department Care Team (Late st Contact Info) Description 07/26/2023 Procedure Pass [facility], [address] [address] Social History Tobacco Use Types Packs/Day Years [...] (Latest Contact Info) Description 07/12/2024 Procedure Pass [address] [address] 03/27/2025 1:00 PM EST Office Visit [facility] Internal Medicine 40 [place] [address] Darrell Sutherland MD 40 [place] [address] 07/10/2025 11:10 AM EDT Appointment [address] [address] Ciro Kelley MD [address] [place] [address] Avtar [email or web address] 07/10/2025 12:00 PM EDT Appointment [facility], X-Ray - [address] [address] Ciro Kelley MD [address] [place] [address] Avtar [email or web address] 07/16/2025 3:00 PM EDT Telemedicine - audio only [facility] Radiology Cross [facility] Clinic [address] [place] [address], 3rd Floor, [place] [address] Ciro Kelley MD [address] [place] [address] Avtar [email or web address] documented as of this encounter Visit Diagnoses Not on filedocumented in this encounter Additional Health Concerns Assessment Noted Time PHQ-9 Depression Total Score: 6 01/28/20 23 12:49 PM EST PHQ-2 Depression Total Score: 0 02/23/19 25 12:42 PM EST documented as of this encounter Care Teams Credit Risk Officer Relationship Specialty Start Date End Date Darrell Sutherland MD [address] [place] [address] PCP - General Internal Medicine 01/11/17 Darrell Sutherland MD 40 [place] [address] Insurance Assigned Provider 05/28/23 Travis Monge MD [address] [place] [address] [place] [address] Pulmonary Disease 06/01/22 Melanie Henson, RN [address] [place] [phone] iCMP Slat Basket Maker Helper 09/19/23 10/24/23 documented as of this encounter Additional Source Comments The information contained in this document represents components of the legal health record. It is not the complete legal health record.[facility]
--- OUTSIDE RECORDS SUMMARY | 2024-11-02 10:50 | XMS_ITS | Encounter Summary ---
Author Organization [facility] Address [address] [place], [place] [address] [place] [address] Phone Care Team Providers Care Sample Tester Name Role Phone Darrell Sutherland MD Unavailable [phone] Radha Giron TRUCK ENGINE TECHNICIAN Unavailable Kianna Abreu TRUCK ENGINE TECHNICIAN Unavailable [phone] Ky Barone DIE MOUNTER Unavailable Darrell Sutherland MD Primary Care Provider [phone] Darrell Sutherland MD Unavailable Travis Monge MD Unavailable [phone] Melanie Henson RN Unavailable Encounter Details Date Type Department Care Team (Latest Contact Info) Description 06/01/2017 Transcribe Orders [facility] Laboratory [address] [place], [place] [phone] Darrell Sutherland MD [address] [place], [place] [phone] [email or web address] Pure hypercholesterolemia (Primary Dx); Essential [...] (Latest Contact Info) Description 07/12/2024 Procedure Pass [address] [address] 03/27/2025 1:00 PM EST Office Visit [facility] Internal Medicine 40 [place] [address] Darrell Sutherland MD 40 [place] [address] 07/10/2025 11:10 AM EDT Appointment [address] [address] Ciro Kelley MD [address] [place] [address] Avtar [email or web address] 07/10/2025 12:00 PM EDT Appointment [facility] X-Ray - [address] [address] Ciro Kelley MD [address] [place] [address] Avtar [email or web address] 07/16/2025 3:00 PM EDT Telemedicine - audio only [facility] Radiology Cross [facility]al Clinic 70 [facility], 3rd Floor, [place] [address] Ciro Kelley MD [address] [place] [address] Avtar [email or web address] documented as of this encounter Results * (ABNORMAL) 25-OH vitamin D (06/01/2017 8:19 AM EDT) 25 [place] VIT D (TOTAL) 24(L) 30 - 1,000 ng/mL [facility] Blood 06/01/2017 8:19 AM EDT 06/01/2017 8:23 AM EDT us Darrell Sutherland MD LAB BLOOD ORDERABLES Final Re sult [address] [address] * Magnesium (06/01/2017 8:19 AM EDT) [facility] MAGNESIUM 2.1 1.6 - 2.6 mg/dL [facility] Blood 06/01/2017 8:19 AM EDT 06/01/2017 8:23 AM EDT us Darrell Sutherland MD LAB BLOOD ORDERABLES Final Re sult [address] [address] * Comprehensive metabolic panel (06/01/2017 8:19 AM EDT) Pathologist [facility] SODIUM 141 133 - 146 mmol/L [facility] POTASSIUM 3.8 3.3 - 5.1 mmol/L [facility] CHLORIDE 101 96 - 108 mmol/L [facility] CO2 27 21 - 35 mmol/L [facility] BUN 18 6 - 19 mg/dL [facility] CREATININE 0.60 0.5 - 1.5 mg/dL [facility] GLUCOSE 92 70 - 99 mg/dL [facility] ALBUMIN 4.1 3.9 - 4.8 g/dL [facility] TOTAL PROTEIN 7.2 6.5 - 8.0 g/dL [facility] CALCIUM 9.3 8.4 - 10.3 mg/dL [facility] ALKALINE PHOSPHATASE 71 39 - 117 U/L [facility] TOTAL BILIRUBIN 0.4 0.0 - 1.2 mg/dL [facility] AST 21 0 - 37 U/L [facility] ALT 20 0 - 40 U/L [facility] GLOBULIN 3.1 1 - 4.8 g/dL [facility] EGFR 90 >59 mL/min/1.7 3m2 [facility] Comment:If patient is black, multiply result by 1.159. The eGFR calculation has changed from the MDRD equation to the CKD-EPI equation as of April 26, 2017. ANION GAP 17 10 - 20 mmol/L [facility] Blood 06/01/2017 8:19 AM EDT 06/01/2017 8:23 AM EDT us Darrell Sutherland MD LAB BLOOD ORDERABLES Final Re sult Performing Organization Address [facility] Co de Phone Number [address] [address] * TSH (06/01/2017 8:19 AM EDT) TSH 1.86 0.27 - 4.20 uIU/mL [facility] Blood 06/01/2017 8:19 AM EDT 06/01/2017 8:23 AM EDT us Darrell Sutherland MD LAB BLOOD ORDERABLES Final Re sult Performing Organization Address [facility] Co de Phone Number [address] [address] * Lipid panel (06/01/2017 8:19 AM EDT) HDL 46 mg/dL [facility] Comment: Interpretation: Risk Level Females Decreased >55mg/dL Average 50-55 mg/dL Increased <50 mg/dL CHOLESTEROL 191 0 - 240 mg/dL [facility] TRIGLYCERIDES 153 30 - 160 mg/dL [facility] LDL 114 50 - 129 mg/dL [facility] Comment: LDL levels in terms of risk for coronary heart disease: <100 mg/dL: Optimal 100-129 mg/dL: Near or above optimal 130-159 mg/dL: Borderline high 160-189 mg/dL: High >190 mg/dL: Very High CARDIAC RISK RATIO 4.2 3.3 - 4.4 C [facility] Blood 06/01/2017 8:19 AM EDT 06/01/2017 8:23 AM EDT us Darrell Sutherland MD LAB BLOOD ORDERABLES Final Re sult Performing Organization Address [facility]/ZIP Co de Phone Number [address] [address] * (ABNORMAL) CBC (06/01/2017 8:19 AM EDT) WBC 6.60 3.40 - 11.20 K/uL [facility] RBC 4.84(H) 3.80 - 4.80 M/uL [facility] HGB 13.8 12.0 - 15.0 g/dL [facility] HCT 42.8 36.0 - 46.0 % [facility] PLT 226 130 - 400 K/uL [facility] MCV 88.4 79.0 - 98.0 fL [facility] MCH 28.5 27.0 - 34.8 pg [facility] MCHC 32.2 31.5 - 36.0 g/dL [facility] RDW 14.2 10.8 - 14.6 % [facility] MPV 10.0 9.4 - 12.4 fl [facility] NRBC 0.00 /100 WBCs [facility] ABSOLUTE NRBC 0.00 K/uL [facility] Blood 06/01/2017 8:19 AM EDT 06/01/2017 8:23 AM EDT us Darrell Sutherland MD LAB BLOOD ORDERABLES Final Re sult Performing Organization Address City/[facility] Hospital/ZIP Co de Phone Number [address] [address] documented in this encounter Visit Diagnoses Diagnosis Pure hypercholesterolemia- Primary Essential hypertension, benign Vitamin D deficiency documented in this encounter Additional Health Concerns Infection Onset Date Last Indicated Resolved Time CoV-Risk 07/13/2023 07/13/2023 07/24/2023 1:22 AM EDT Assessment Noted Time PHQ-2 Depression Total Score: 0 04/30/19 18 10:53 AM EST documented as of this encounter Care Teams Sample Tester Relationship Specialty Start Date End Date Darrlel Sutherland MD [address] [place] [address] PCP - General Internal Medicine 01/11/17 Darrell Sutherland MD [address] [place] [address] Historical LMR Provider 12/11/16 07/31/20 Radha Giron, TRUCK ENGINE TECHNICIAN [address] [place] [address] 104 [place] [address] Historical LMR Provider 12/11/16 Kianna Abreu NP [address] [place] [address] 6 [place] [address] Historical LMR Provider 12/11/16 07/31/20 Ky Barone CNP [address] [facility] [place] [address] Historical LMR Provider 12/11/[address]/31 Darrell Sutherland MD [address] [place] [address] Insurance Assigned Provider 05/28/23 Travis Monge MD [address] [place] [address] [place] [address] Pulmonary Disease 06/01/22 Melanie Henson, RN 10 [place] [address] [email or web address] iCMP Leg Breaker 09/19/23 10/24/23 documented as of this encounter Additional Source Comments The information contained in this document represents components of the legal health record. It is not the complete legal health record.[facility]
--- OUTSIDE RECORDS SUMMARY | 2024-11-02 10:50 | XMS_ITS | Patient Health Record ---
Author Organization [facility] Address [address] [place] [address] Care Team Providers Care Glassine Machine Tender Name Role Phone Darrell Sutherland MD Primary Care Provider Dylon Leary Unavailable [phone] Allergies Allergen (clinical drug ingredient) Drug/Non Drug [...] Status Risk Notes Problem Acquired hallux valgus (88928071) Hallux valgus (acquired), left foot (M20.12) Active confirmed Problem Acquired hallux valgus (36696639) Hallux valgus (acquired), right foot (M20.11) Active confirmed Problem Acquired hammer toe of right foot ([id number] 105) Other hammer toe(s) (acquired), right foot (M20.41) Active confirmed Problem Acquired hammer toe of left foot ([id number] 103) Other hammer toe(s) (acquired), left foot (M20.42) Active confirmed Plan Of Treatment Pending Test Test Name Order Date X ray : Foot, right 3V 06/05/2020 Insurance Providers Payer Name Payer Address Payer Phone Subscriber Number Group Number Insured Name Patient Relationship to Insured Coverage Start Date Coverage End Date Medicare National [employer] [address] [place] [address] [id number] Sudha Meek Self - patient is the insured [employer] [address] [place] [address] [id number] Sudha Meek Self - patient is the insured Medical (General) History Medical History History ICD Code High blood pressure Surgical History Surgery Date(Month/Year) right knee replacement 10/2016
--- OUTSIDE RECORDS SUMMARY | 2024-11-02 10:50 | XMS_ITS | Encounter Summary ---
Author Organization Formerly [facility] Address [address] [place] [id number] Phone Care Team Providers Care Veterinary Science Teacher Name Role Phone Darrell Sutherland MD Primary Care Provider [phone] Darrell Sutherland MD Unavailable [phone] Travis Monge MD Unavailable [phone] Melanie Henson RN Unavailable [phone] Encounter Details Date Type Department Care Team (Late st Contact Info) Description 06/08/[address] [facility] Periop [address] [place] [address] Social History Tobacco Use Types Packs/Day Years [...] (Latest Contact Info) Description 07/12/2024 Procedure Pass [facility] [address] [place] [address] 03/27/2025 1:00 PM EST Office Visit [facility] Internal Medicine [address] [place] [address] Darrell Sutherland MD [address] [place] [address] [email or web address] 07/10/2025 11:10 AM EDT Appointment [facility] Mri - [address] [address] Ciro Kelley MD [address] [place] [address] [email or web address] 07/10/2025 12:00 PM EDT Appointment [facility] X-Ray [address] [address] Ciro Kelley MD [address] [place] [phone] [email or web address] 07/16/2025 3:00 PM EDT Telemedicine - audio only [facility] Radiology [facility] [address] [facility], 3rd Floor, [place] [address] Ciro Kelley MD [address] [place] [address] [email or web address] documented as of this encounter Visit Diagnoses Not on filedocumented in this encounter Additional Health Concerns Infection Onset Date Last Indicated Resolved Time CoV-Risk 07/13/2023 07/13/2023 07/24/2023 1:22 AM EDT Assessment Noted Time PHQ-2 Depression Total Score: 0 01/26/20 12:55 PM EST documented as of this encounter Care Teams Veterinary Science Teacher Relationship Specialty Start Date End Date Darrell Sutherland MD [address] [place] [address] [email or web address] PCP - General Internal Medicine 01/11/17 Darrell Sutherland MD [address] [place] [address] [email or web address] Insurance Assigned Provider 05/28/23 Travis Monge MD [address] [place] [address] [place] [address] Pulmonary Disease 06/01/22 Melanie Henson, RN [address] [place] [phone] [email or web address] iC[employer] Fretted Instrument Repairer 09/19/23 10/24/23 documented as of this encounter Additional Source Comments The information contained in this document represents components of the legal health record. It is not the complete legal health record.Formerly [facility]
--- OUTSIDE RECORDS SUMMARY | 2024-11-02 10:50 | XMS_ITS | Encounter Summary ---
Author Organization [facility] Address [address] [address] Phone Care Team Providers Care Seed District Sales Manager Name Role Phone Darrell Sutherland MD Primary Care Provider Darrell Sutherland MD Unavailable [phone] Travis Monge MD Unavailable Melanie Henson RN Unavailable Encounter Details Date Type Department Care Team (Late st Contact Info) Description 01/18/2023 Procedure Pass [facility], [address] [address] Social History Tobacco Use Types Packs/Day Years [...] (Latest Contact Info) Description 07/12/2024 Procedure Pass [address] [address] 03/27/2025 1:00 PM EST Office Visit [facility] Internal Medicine [address] [place] [address] Darrell Sutherland MD [address] [place] [address] 07/10/2025 11:10 AM EDT Appointment [address] [address] Ciro Kelley MD [address] [place] [phone] Avtar [email or web address] 07/10/2025 12:00 PM EDT Appointment [facility], X-Ray - [address] [address] Ciro Kelley MD [address] [place] [phone] Avtar [email or web address] 07/16/2025 3:00 PM EDT Telemedicine - audio only [facility] Radiology [facility] [address] [facility], 3rd Floor, [place] [address] Ciro Kelley MD [address] [place] [phone] Avtar [email or web address] documented as of this encounter Visit Diagnoses Not on filedocumented in this encounter Additional Health Concerns Infection Onset Date Last Indicated Resolved Time CoV-Risk 07/13/2023 07/13/2023 07/24/2023 1:22 AM EDT Assessment Noted Time PHQ-9 Depression Total Score: 6 01/28/20 23 12:49 PM EST PHQ-2 Depression Total Score: 4 01/28/20 23 12:49 PM EST documented as of this encounter Care Teams Seed District Sales Manager Relationship Specialty Start Date End Date Darrell Sutherland MD [address] [place] [address] [email or web address] PCP - General Internal Medicine 01/11/17 Darrell Sutherland MD [address] [place] [address] Insurance Assigned Provider 05/28/23 Travis Monge MD [address] [place] [address] [place] [address] Pulmonary Disease 06/01/22 Melanie Henson, RN [address] [place] [phone] [email or web address] iCMP Specialty Person 09/19/23 10/24/23 documented as of this encounter Additional Source Comments The information contained in this document represents components of the legal health record. It is not the complete legal health record.[facility]
== END 2024-11-02 10:30 | disposition home or self-care (01) ==
LOC: HO.ACS 09:41
PROVIDERS: PCP Internal Medicine; Visit Provider Internal Medicine Medical Oncology
DX: Z79.01 Long term (current) use of anticoagulants (principal)

== ENCOUNTER → 2024-11-02 09:41 | Outpatient (BNVA) | payer MEDICARE, SELFPAY | PROVIDERS: PCP Internal Medicine; Visit Provider Internal Medicine Medical Oncology | DX: Z51.81 Encounter for therapeutic drug level monitoring (principal); Z79.01 Long term (current) use of anticoagulants | CPT/HCPCS: 85610; 99211 ==

== ENCOUNTER 2024-11-06 12:57 | Outpatient (AMB) | payer MEDICARE, SELFPAY ==
--- OUTSIDE RECORDS SUMMARY | 2023-05-19 10:00 | XMS_ITS ---
Author Organization [facility] Address [address] [place] [address] Care Team Providers Care Promotion Producer Name Role Phone Darrell Sutherland MD Primary Care Provider Unavaila Jay Bailey Unavailable [phone] REASON FOR VISIT lower GI bleed Problems Problem Type SNOMED Code ICD Code Onset Dates Problem Status W/U Status Risk Notes Problem Diverticular disease of colon (579696714) Diverticulosis of large intestine without perforation or abscess without bleeding (K57.30) Active confirmed Encounters Encounter Location Date Provider Diagnosis [facility] [place] [address] [place] [phone] 05/19/2023 Jay Guido Colon polyps K63.5 ; [...] ROLAN GEORGE EDOB:[birth year] (83 yo F)Acc No.[id number]:05/19/2023 COLON WITH MAC Patient: Judy ROLAN ROGER Provider: Jeniffer Guido MD :1940 A ge:82 Y S ex:Female Date:05/19/2023 Address:[address] [place] [address], [place] Pcp:Darrell Sutherland MD Subjective: * Chief Complaints: [...] 05/19/2023 Generated for Naila arrington/Daniela/Vanceitting on: 0 11/06/2024 04:55 PM EDT
--- NOTE | 2024-11-06 13:04 | MHC.OFFVIS ---
Vital Signs 11/06/24 13:05 Height 5 ft Weight 160 lb 14.999 oz BMI 31.4 BP 142/84 H Blood Pressure Location Lt brachial Position Sitting Pulse 73 Pulse Source Pulse Oximeter Pulse Oximetry (%) 93 Oxygen Delivery Method Room Air Intake Visit Reasons: ILD Hospital Account Liaison Required: No Accompanied by: Self / Same As Patient Allergies amlodipine Allergy (Intermediate, Verified 11/06/24 13:07) Difficulty Breathing latex (LATEX) Allergy (Intermediate, Verified 11/06/24 13:07) RASH seasonal Allergy (Intermediate, Uncoded 11/02/24 10:05) Sneezing altace Adverse Reaction (Mild, Uncoded 11/02/24 10:05) Cough HPI Comments Details: The patient is a 83 year woman who was referred to Pulmonary to evaluate abnormal CT scan of the chest. The patient states that she has been feeling otherwise well. Denies any significant shortness of breath or cough or any chest discomfort. However, she does state that she lives in a very [place] [facility] and she does not do a lot of walking. She went to see her primary care doctor who checked her pulse oximeter and was noted to be low. Therefore she had additional imaging studies including a CT scan of the chest that was found to be abnormal. I did personally viewed the CT scan demonstrating areas of mosaic pattern is of ground-glass opacities and also some reticular changes primarily in the lingula. The patient denies any significant exposure to any fumes or toxins. Denies any hobbies with any exposures to organic or inorganic dusts. She denies any exposure to any farm animals or farm or hay. She does not have any pets. She denies any mold in the household. The interesting part of the story is that the patient has a identical twin who lives in [place]. At the same time that she was undergoing a CT scan of the chest for further evaluation of underlying interstitial lung disease the patient is identical sister was also going to the same process. She is also going to see a specialist. The details of that evaluation are not available at this time. She denies any significant rashes or joint pains or muscle discomfort or muscle weakness. During the office visit we did go for 6 minute walk test. The patient did desaturate down to 88%. She had a dyspnea score of 3/10 and did go up to 4-10 when she was a little more hypoxic. We did rest for a minute and her oxygen improved to the low 90s. The patient did qualify for oxygen but she does not 1 at this time. 12/03/2021 the patient is here for a pulmonary follow-up visit. She is here with her sister. She did take the prednisone. The prednisone made her feel better although did not really help her breathing symptoms. She really denies any significant dyspnea on exertion. She walks regularly and also uses a recumbent bike and denies any significant shortness of breath. We did review her blood work which was relatively negative except for a positive RD with the very low titer of 01:40. There is no real history of connective tissue conditions in the family. There is a history pulmonary fibrosis. Both her mother and also her sister that is being evaluated at this time. Her last CT scan did demonstrate reticular changes in addition to ground-glass opacities. 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 During the visit the patient did have evidence of bilateral crackles and her 6 minutes walk test she desaturated down to about 86%. Her dyspnea score was 5/10 during. based on that explained to the patient that she needs to start oxygen supplementation with activity. She is a bit reluctant but she is willing to try for now. Will plan to repeat the CT scan and then follow up with a painful to see you if there is no significant progression of the pulmonary fibrosis. With talk about considering all to have a biopsy although patient is at this point reluctant to do so. Would not be unreasonable to keep the patient on small dose of prednisone for that reason. Indeed she has worsening fibrotic changes using wanted fibrotic agent would also be an option. 01/12/2022 the patient is here with her daughter for pulmonary follow-up visit. She has been on the 10 mg of prednisone. She is concerned because of the adverse effects of the medication and affecting her sleep. We did keep her on the prednisone in view of the elevated RD and also the elevation in the eosinophils which may manifest with an interstitial process. Specially since she did have some areas of ground-glass opacities suggesting pneumonitis. The patient however denied a see any significant improvement or difference. She did have a repeat CT scan of the chest and we personally reviewed that together. We also compared to her last CT scan that she had several months back. Appears to be some interval increase in the degree of reticulations and pulmonary fibrosis primarily on the left lung more than the right. She still has areas of ground-glass opacities in addition to mosaic pattern. No clear etiology for the interstitial lung disease based on the blood work. The patient is not interested in pursuing any invasive diagnostic interventions such as biopsies. Clinically the patient is doing well and she denies any respiratory symptoms at all. All this came about because she was noted to have an abnormal CT scan when she was referred to Pulmonary. She did have 2 6 minutes walk test both that were consistent with hypoxia qualify for oxygen. The patient also had an overnight oximetry demonstrating significant hypoxia while sleeping at least for close to 3 hours for she spent below 88%. Therefore the patient needs to continue using the oxygen with activity and also at nighttime while sleeping. She is adamant that she has wants to get an [employer] portable oxygen concentrator. Will go ahead and fill out some paperwork in order for her to receive that. the patient is wondering if she is going to have to stay on the oxygen. I did recommend that she continue to use it for now and we will retest her once she returns in . Patient is going to be weaning off the prednisone at this time. And the patient is not interested in any antifibrotic therapy at this time. Based on her clinical presentation during the next visit we can discuss further anti fibrotic therapy if she would like. Patient does have a lot of questions about her condition and the fact that she is fairly asymptomatic. The fact that her 20 sister also found to have some interstitial lung changes which she does not require oxygen and she is questioning the whole process. I can only tolerate that we have tested her multiple times and all times have demonstrated evidence of hypoxia even on the day of presentation the patient is stands that using the oxygen will help her with her organ function including heart brain and other end-organ functions. Her her daughter was wondering about a diagnosis next Plain to her for now based on the fact that there is some progression the possibility of idiopathic pulmonary fibrosis needs to be in differential. Explained to the patient and the daughter that with the idiopathic pulmonary fibrosis the fibrosis is progressive. Therefore, will continue to monitor for any progression of disease. 05/06/2022 the patient is here for a pulmonary preoperative evaluation. Overall the patient has been doing about the same from a respiratory status. She continues use the oxygen with activity and sleep. She denies any worsening shortness breath or any new respiratory complaints. She denies any evidence of any active connective tissue disease. She has been off all corticosteroid therapy. She was found to have a renal mass. Concerning for malignancy. Now after being evaluated by Urology see felt that she requires full nephrectomy. Because of her underlying respiratory disease stable also recommending ablation. We did review her spirometry also her PFTs from last year in addition to her 6 minutes walk test. Based on this the patient does have increased risk for perioperative pulmonary complications. However, she is medically optimize any condition is not worsening. Therefore, I do believe that she will tolerate general anesthesia and will tolerate her surgery. She will have increased risks including further hypoxia in addition to risk for pneumonia and atelectasis. Currently she is medically optimized from a pulmonary standpoint. She does not need any bronchodilator therapy. She is using her oxygen effectively. After she recovers from her surgery will reassess her underlying interstitial lung disease with a repeat CT scan and PFTs. At that point we can decide if there is any evidence of any progression to consider small dose steroids versus antifibrotic therapies. 09/21/2022 the patient is here for pulmonary follow-up visit. She recovering well from her surgery. She did have increased shortness of breath after surgery. She did follow-up in the office and was reassuring that everything was okay. The patient has been using the oxygen a little bit more often specially after surgery. she was having issues with high blood pressure she was started on a new blood pressure medication. After the medication she noticed that oxygen actually dropped to 84% which became very concerning for her. Therefore she stopped that medicine which was amlodipine. Seems that her blood pressure is better at this time. The patient also underwent a CT scan of the chest which I personally reviewed with her and her daughter. It appears some slight increase in the reticular changes primarily in the left side. There is also evidence of ground-glass opacities suggestion a component of inflammation or likely subtle scarring. Patient does have a history of slightly elevated connective tissue disease laboratory suggesting the possibility of connective tissue disease related pulmonary fibrosis. She had been on prednisone before and she did tolerated fairly well. She is willing to try smaller dose to see if she can tolerated and try to minimize progression of the scarring. Another option is to consider antifibrotic agent specially with slight worsening of disease. She is going to consider this as well. Will go ahead and start her on therapy with prednisone 10 mg daily and she is going to taper down to the lowest most effective dose which I hope is going to be 10 mg every other day. She is going to monitor closely her oxygen supplementation. Also to note that she does have a twin with very similar condition and she is also now on a small dose of prednisone. She is reassured I am also reassured that the amount of progression appears to be fairly minimal in a year's time. We did talk about pulmonary rehabilitation. The patient would really benefit from rehabilitation at this time specially now that she is recovering from her renal cell cancer surgery. 12/23/2022 the patient is here for a pulmonary follow-up visit. Apparently she was hospitalized earlier this month after developing significant tachycardia while at pulmonary rehab. She was referred down to the [facility] ER where she was diagnosed with atrial fibrillation and also had a CTA demonstrating pulmonary emboli. Therefore the patient was admitted to the hospital. She was evaluated by Cardiology. She has been on Eliquis since that hospitalizations. Her oxygen requirements are about the same. I did review her CT scan of the chest. She does have significant mosaic pattern a little bit more than before. In addition to that the pulmonary emboli noted right more than left. The patient also has a nodular density measuring around a cm in the right upper lobe area. The patient is also scheduled to undergo and MRI coming up for history of renal cancer. She continues on the prednisone every other day. At this point will continue with that does specially since she is concerned about the potential adverse effects of prednisone. she continues in atrial fibrillation but she is rate controlled. At this point the patient will continue with the Eliquis and her respiratory therapy. The patient will undergo a repeat CTA in 3 months' time to assess the resolution of the clots in addition to that to follow-up with the 1 cm subsolid nodular density in the right upper lobe. 04/22/2023 the patient is here for a pulmonary follow-up visit. The patient overall has been feeling well. She did stop the prednisone as she was concerned about the adverse effects. Still having dyspnea on exertion [id number] severity. She does use her oxygen with sleep and also with activity. She has a POC. She was participating in the pulmonary rehabilitation but then started developing issues with atrial fibrillation and also shoulder issues. She is currently working with orthopedic surgery and Cardiology. At this point though she is doing better and she is able to go back to pulmonary rehabilitation at this time. She is still getting physical therapy at home for her shoulder so therefore she would have to wait until that is completed. The patient did have a CT scan of the chest that I personally reviewed with her. The patient does have evidence of mosaic pattern suggesting air trapping. Appears to have gotten slightly more pronounced. Maybe the fact that she has no longer on prednisone. The interstitial lung disease looks about the same. Therefore we can hold off on the idea of Ofev. The patient is agreeable to starting a inhaled corticosteroid. The patient is going to be having an MRI of the abdomen to re-evaluate her history of renal cancer. We were monitoring 1 pulmonary nodule that was in the right hemithorax. However, it does not appear to be present and her current CT scan which is reassuring. Otherwise the patient is doing well. Will plan to follow-up in 6 months. 07/26/2023 the patient is here for sick visit. Apparently she had been having worsening respiratory symptoms cough chest congestion. She had gotten a chest x-ray that was abnormal. She was placed on antibiotics which is cephalosporin. She had a hard time tolerating the medicine. She took it. Affected her Coumadin INR. The patient did have a CT scan of the chest done. I personally reviewed the images. Patient does have masslike consolidation bilaterally. Some areas of ground-glass opacities and airspace disease. Also nodular densities. We did compared to the CT scan she had back in 03/12/2023 where she had the ground-glass opacities and interstitial lung disease but no evidence of any nodular densities. Also the patient did have an MRI the kidney and everything is fine her report. I did review the masslike consolidations with the patient. Appears to be more consistent with an infectious process. Likely walking pneumonia could be a viral syndrome that may have been superimposed on bacterial infection such as staph aureus. The antibiotics did help. Will go ahead and give her a 2nd course of antibiotics with doxycycline. I also send a message to the Coumadin clinic to make sure they monitor her INR. The patient already scheduled to have a repeat CT scan September 14 which I believe is reasonable. We did contemplate a PET scan but at this point based on her respiratory illness the PET scan would also sharp activity in infectious process therefore making it less accurate. Therefore the CT with contrast would be a very good study for follow-up. The patient understands that if she has any residual nodular densities of any concern will order a PET scan at that point. If she develops any worsening symptoms she should also call for an earlier assessment. The patient also will complete the antibiotics and after that she can go back to pulmonary rehabilitation as it is important for her to continue to exercise regularly. 09/19/2023 the patient is here for a pulmonary follow-up visit. She is feeling a lot better. Oxygenation is also better. She does have her oxygen although she has been able to be off it for periods of time which is reassuring. She did undergo her CT scan of the chest that has not been officially read. However, we did review the CT scan together and then also compared to her previous CT scans. It appears that the masslike consolidations in airspace disease have significantly subsided. She did complete a course of antibiotics which is reassuring. Indeed no evidence of any recurrence. No evidence of any pulmonary nodules that are concerning. As far as her interstitial lung disease looks about the same although some areas where she had most of the airspace disease it seemed to have scarred up a little bit as far as the organization in the healing process. Therefore, I do not believe that the changes are due to is progression of her interstitial lung disease but more the recent acute illness. No need for PET scan at this time. The patient is going to continue her respiratory therapy as prescribed she is going to continue her oxygen with activity and also sleep. She will follow-up in 6-8 months. If the patient develops any worsening symptoms she will call for an earlier assessment. 05/03/2024 the patient is here for a pulmonary follow-up visit. Overall the patient is doing well. She continues use the oxygen with activity and sleep with good effect. She has been off the prednisone she has been doing okay. Her twin sister is taking prednisone 5 mg and she is wondering about that. However, after talking to her medical provider she opted on not going on prednisone. Specially with a history of cancer. She does have an MRI scheduled soon to follow-up with the renal cell carcinoma. In the meantime we looked at her old CT scans. We could see the pulmonary fibrosis. Clinically the patient does not appear to have any worsening disease. Although I explained to her that if we see any worsening scarring we can always consider Ofev as an option. I did personally review the CT scan from - and we see some slight progression of disease. So we will keep that in mind as we wait for the CAT scan over the summer to see there is any progression. When she returns in the fall also have her undergo pulmonary function studies to see if there is any changes in her pulmonary capacity. Otherwise patient is doing well she continue with the current therapy and will follow-up in the Fall. 11/06/2024 the patient is here for pulmonary follow-up visit. Overall she is doing okay. Still has dyspnea on exertion. She is sedentary. Does not typically exercise. She also has significant knee issues was hard for her to walk. In the meantime she has not seen any significant worsening or respiratory capacity. She did undergo a CT scan of the chest that I personally reviewed with her. She does have the mosaic pattern in addition to the interstitial lung disease that appears to be stable when compared to a year ago but when we look back to 2021 there is some degree of progression. In addition to that she did undergo pulmonary function studies demonstrating a decrease in the total lung capacity when compared to PFTs from 2022. Therefore, we can see a very slow progression of her interstitial lung disease. She is not on any therapy right now. We did talk about considering antifibrotic agents. I do believe that the progression of disease is very slow for her especially since she is not feeling any significant worsening. Will plan to repeat some breathing studies when she comes back in June and she is also going to have an x-ray at [facility]. And will decide at that point if her condition is worsening enough to consider antifibrotic agents. In the meantime if she notices any worsening disease or any worsening respiratory symptoms she can always call for further recommendations. Doing well from the renal cell carcinoma. She is following closely with her doctors with MRIs and she is also going to have an x-ray done in that visit in June. [facility] Medical History Pulmonary nodules Pulmonary embolism History of kidney disease Pulmonary nodule Renal cell cancer Renal cell carcinoma of right kidney Chronic respiratory failure with hypoxia Pneumonitis ILD (interstitial lung disease) Surgical History History of right knee surgery (~10/2016) History of History of cholecystectomy Social History Household Members: None Housing: Condominium Do you presently have visiting nurse or other home services: No Alcohol intake: former Patient Tobacco Use Status: Former Tobacco user Tobacco use type: Cigarette Years Smoked: 5 Advance Directives Date on File: 12/01/22 service: No Review of Systems Const Denies chills, Denies fatigue, Denies fever(s), Denies frequent falls, Denies weakness, Denies weight gain and Denies weight loss ENT Denies dizziness Card Denies chest pain, Denies leg edema, Denies lightheadedness, Denies palpitations, Denies dyspnea, Reports dyspnea on exertion, Denies orthopnea and Denies other (loss of consciousness) Resp Denies cough, Denies dyspnea and Reports dyspnea on exertion GI Denies hematochezia and Denies change in stool character Musc Denies abnormal gait, Reports myalgias, Reports arthralgias, Denies muscle weakness, Denies numbness, Denies radiating pain into limb and Denies tingling Neuro Denies abnormal gait, Denies dizziness, Denies frequent falls, Denies numbness, Denies tingling and Denies weakness Endo Denies fatigue and Denies palpitations Physical Exam Vital Signs: Last Vital Signs Pulse 73 11/06/24 13:05 BP 142/84 H 11/06/24 13:05 Pulse Ox 93 11/06/24 13:05 Oxygen Delivery Method Room Air 11/06/24 13:05 BMI result Body Mass Index 31.4 Const General: comfortable HEENT Head: Yes normal to inspection Neck Neck: Yes supple Chest Chest palpation & inspection: normal inspection of the chest Resp Effort & Inspection: normal respiratory effort Auscultation: crackles, no rhonchi and diminished lung sounds Cardio Rate: regular rate and tachycardic Rhythm: abnormal rhythm Heart sounds: S1 normal heart sound present and S2 normal heart sound present GI Auscultation: normal bowel sounds General: Yes no CVA tenderness Back/Spine/Pelvis Back: no CVA tenderness Skin General skin exam: no rashes or lesions noted Extrem General: Yes no clubbing, cyanosis or edema Assessment & Plan Assessment & Plan (1) Pneumonitis: Code(s): J18.9 - Pneumonia, unspecified organism Category: Medical (2) ILD (interstitial lung disease): Code(s): J84.9 - Interstitial pulmonary disease, unspecified Category: Medical (3) Chronic respiratory failure with hypoxia: Code(s): J96.11 - Chronic respiratory failure with hypoxia Category: Medical (4) Pulmonary embolism: Code(s): I26.99 - Other pulmonary embolism without acute cor pulmonale Category: Medical Qualifiers: Pulmonary embolism type: multiple subsegmental (without acute cor pulmonale) Qualified Code(s): I26.94 - Multiple subsegmental pulmonary emboli without acute cor pulmonale (5) Atrial fibrillation: Code(s): I48.91 - Unspecified atrial fibrillation Category: Medical Qualifiers: Atrial fibrillation type: persistent (not longstanding) Qualified Code(s): I48.19 - Other persistent atrial fibrillation (6) Renal cell cancer: Comment: RUL pulmonary nodule resolved Code(s): C64.9 - Malignant neoplasm of unspecified kidney, except renal pelvis Category: Medical Qualifiers: Laterality: unspecified laterality Qualified Code(s): C64.9 - Malignant neoplasm of unspecified kidney, except renal pelvis (7) Pulmonary nodules: Code(s): R91.8 - Other nonspecific abnormal finding of lung field Category: Medical Plan Continue oxygen 2L pulse/cont with activity and 2L with sleep. continue Eliquis, likely life long consider OFEV if any evidence of progression of the ILD Spirometry with next visit CXR at [facility] prior to next visit F/U 6-8 months Coding Level of Care Code Est Pt Level 4 (30889) Complex EM visit Add On G2211 Diagnoses Pneumonitis J18.9 ILD (interstitial lung disease) J84.9 Chronic respiratory failure with hypoxia J96.11 Multiple subsegmental pulmonary emboli without acute cor pulmonale I26.94 Pulmonary embolism type: multiple subsegmental (without acute cor pulmonale) Persistent atrial fibrillation I48.19 Atrial fibrillation type: persistent (not longstanding) Renal cell carcinoma, unspecified laterality C64.9 Laterality: unspecified laterality Pulmonary nodules R91.8 Time Spent (min) 17
[2024-11-06 13:05] VITALS: BP 142/84; PULSE 73; O2SAT 93; BMI 31.4
--- OUTSIDE RECORDS SUMMARY | 2024-11-06 16:55 | XMS_ITS | Encounter Summary ---
Author Organization [facility] Address [address] [email or web address] [address] [address] Phone Care Team Providers Care Floor Assembler Name Role Phone Darrell Sutherland MD Primary Care Provider Darrell Sutherland MD Unavailable [phone] Travis Monge MD Unavailable Melanie Henson RN Unavailable Encounter Details Date Type Department Care Team (Late st Contact Info) Description 07/20/2022 Procedure Pass [facility], [address] [address] Social History Tobacco Use Types Packs/Day Years [...] (Latest Contact Info) Description 07/12/2024 Procedure Pass [address] [address] 03/27/2025 1:00 PM EST Office Visit [facility] Internal Medicine [address] [place] [address] Darrell Sutherland MD [address] [place] [address] 07/10/2025 11:10 AM EDT Appointment [address] [address] Ciro Kelley MD [address] [place] [address] Avtar [email or web address] 07/10/2025 12:00 PM EDT Appointment [facility], X-Ray - [address] [address] Ciro Kelley MD [address] [place] [address] Avtar [email or web address] 07/16/2025 3:00 PM EDT Telemedicine - audio only [facility] Radiology [facility] 70 [facility], 3rd Floor, [place] [address] Ciro Kelley MD [address] [place] [address] Avtar [email or web address] documented as of this encounter Visit Diagnoses Not on filedocumented in this encounter Additional Health Concerns Infection Onset Date Last Indicated Resolved Time CoV-Risk 07/13/2023 07/13/2023 07/24/2023 1:22 AM EDT Assessment Noted Time PHQ-2 Depression Total Score: 0 01/26/20 12:55 PM EST documented as of this encounter Care Teams Floor Assembler Relationship Specialty Start Date End Date Darrell Sutherland MD [address] [place] [address] [email or web address] PCP - General Internal Medicine 01/11/17 Darrell Sutherland MD [address] [place] [address] Insurance Assigned Provider 05/28/23 Travis Monge MD [address] [place] [address] [place] [address] Pulmonary Disease 06/01/22 Melanie Henson, RN [address] [place] [address] [email or web address] iCMP Blue Leather Sorter 09/19/23 10/24/23 documented as of this encounter Additional Source Comments The information contained in this document represents components of the legal health record. It is not the complete legal health record.[facility]
--- OUTSIDE RECORDS SUMMARY | 2024-11-06 16:55 | XMS_ITS | Patient Health Record ---
Author Organization [facility] Address [address] [place] [address] Care Team Providers Care Automation Application Engineer Name Role Phone Darrell Sutherland MD Primary Care Provider Jay Talbot Unavailable [phone] Allergies No Known Allergies Reason For Referral [...] Risk Notes Problem Diverticular disease of colon (409571730) Diverticulosis of large intestine without perforation or abscess without bleeding (K57.30) Active confirmed Problem Gastrointestinal hemorrhage (40948238) Lower GI bleed (K92.2) Active confirmed Plan Of Treatment Future Test Test Name Order Date COLONOSCOPY 02/27/2013 COLONOSCOPY 05/12/2023 Insurance Providers Payer Name Payer Address Payer Phone Subscriber Number Group Number Insured Name Patient Relationship to Insured Coverage Start Date Coverage End Date MEDICARE OF [place] [address] [place] [address] [id number] ROLAN GEORGE Self - patient is the insured MEDEX ATTN CLAIMS [address] [place] [address] [id number] ROLAN GEORGE Self - patient is the insured Medical (General) History Medical History History ICD Code Choledocholithiasis--removed via ERCP in 02/2010 prior to Lap [facility] Hypertension Denies [place],DM,CVA,renal disease AFIB - Dr. 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
--- OUTSIDE RECORDS SUMMARY | 2024-11-06 16:55 | XMS_ITS | Patient Health Record ---
Author Organization [facility] Address [address] [place] [address] Care Team Providers Care Dipper Operator Name Role Phone Darrell Sutherland MD Primary Care Provider Dylon Leary Unavailable [phone] Allergies Allergen (clinical drug ingredient) Drug/Non Drug [...] Status Risk Notes Problem Acquired hallux valgus (87576746) Hallux valgus (acquired), left foot (M20.12) Active confirmed Problem Acquired hallux valgus (42227718) Hallux valgus (acquired), right foot (M20.11) Active confirmed Problem Acquired hammer toe of right foot (8804935531333 105) Other hammer toe(s) (acquired), right foot (M20.41) Active confirmed Problem Acquired hammer toe of left foot (8079801312008 103) Other hammer toe(s) (acquired), left foot (M20.42) Active confirmed Plan Of Treatment Pending Test Test Name Order Date X ray : Foot, right 3V 06/05/2020 Insurance Providers Payer Name Payer Address Payer Phone Subscriber Number Group Number Insured Name Patient Relationship to Insured Coverage Start Date Coverage End Date Medicare National Govt Svcs Inc [address] [place] [address] [id number] Sudha Meek Self - patient is the insured [employer] [address] [place] [address] [id number] Sudha Meek Self - patient is the insured Medical (General) History Medical History History ICD Code High blood pressure Surgical History Surgery Date(Month/Year) right knee replacement 10/2016
--- OUTSIDE RECORDS SUMMARY | 2024-11-06 16:56 | XMS_ITS | Encounter Summary ---
Author Organization [facility] Address [address] [address] Phone Care Team Providers Care Heddle Machine Operator Name Role Phone Darrell Sutherland MD Primary Care Provider [phone] Darrell Sutherland MD Unavailable Travis Monge MD Unavailable Melanie Henson RN Unavailable Encounter Details Date Type Department Care Team (Late st Contact Info) Description 06/10/2022 Telephone [facility] PRE/PACU [address] [place] [address] Wanda Trevino, RN [address] [place] [address] [email or web address] Social History Tobacco Use Types Packs/Day Years [...] (Latest Contact Info) Description 07/12/2024 Procedure Pass [facility], [address] [address] 03/27/2025 1:00 PM EST Office Visit [facility] Internal Medicine [address] [place] [address] Darrell Sutherland MD 40 [place] [address] 07/10/2025 11:10 AM EDT Appointment [facility], Mri - [address] [address] Ciro Kelley MD 55 [place] [address] Avtar [email or web address] 07/10/2025 12:00 PM EDT Appointment [facility] X-Ray - [address] [address] Ciro Kelley MD [address] [place] [address] Avtar [email or web address] 07/16/2025 3:00 PM EDT Telemedicine - audio only [facility] Radiology [facility] [address] [place] [address], 3rd Floor, [place] [address] Ciro Kelley MD [address] [place] [address] Avtar [email or web address] documented as of this encounter Visit Diagnoses Not on filedocumented in this encounter Additional Health Concerns Infection Onset Date Last Indicated Resolved Time CoV-Risk 07/13/2023 07/13/2023 07/24/2023 1:22 AM EDT Assessment Noted Time PHQ-2 Depression Total Score: 0 01/26/20 12:55 PM EST documented as of this encounter Care Teams Heddle Machine Operator Relationship Specialty Start Date End Date Darrell Sutherland MD [address] [place] [address] [email or web address] PCP - General Internal Medicine 01/11/17 Darrell Sutherland MD [address] [place] [address] [email or web address] Insurance Assigned Provider 05/28/23 Travis Monge MD [address] [place] [address] [place] [address] Pulmonary Disease 06/01/22 Melanie Henson, RN [address] [place] [id number] [email or web address] iCMP Plywood Patcher 09/19/23 10/24/23 documented as of this encounter Additional Source Comments The information contained in this document represents components of the legal health record. It is not the complete legal health record.[facility]
--- OUTSIDE RECORDS SUMMARY | 2024-11-06 16:56 | XMS_ITS | Clinical Summary ---
Author Organization [facility] Address [address] [place] [address] Phone Care Team Providers Care Jewelry Maker Name Role Phone Darrell Sutherland MD Primary Care Provider Darrell Sutherland MD Unavailable [phone] Travis Monge MD Unavailable Allergies Active [...] every other day. Managed by Dr. Ryan [facility] Cardiology Active olmesartan (BENICAR) 20 mg tablet [...] (11/07/2023): Saw melinda Sevilla/ Adan, 07/26/23 at [facility]- for sick visit after abnormal imaging- plan [...] Description 09/19/2024 11:30 AM EDT Office Visit [facility] Internal [facility] 40 [facility] [place] [address] Darrell Sutherland MD Screening mammogram for breast cancer (Primary Dx); Vitamin D deficiency, unspecified; Pure hypercholesterolemia ; Benign essential hypertension; Impaired fasting glucose 09/19/2024 Orders Only [facility] Internal Medicine 40 [facility] [place] [address] ProviderAmalia MD 09/17/2024 Orders Only [facility] Internal [facility] 40 [facility] [place] [address] ProviderAmalia MD 09/07/2024 Documentation [facility] Internal [facility] 40 [facility] [place], [place] [address] Darrell Sutherland MD 08/08/2024 Orders Only [facility] Internal Medicine 40 [facility] [place], [place] [address] Provider, MD Amalia from Last 3 Months [...] (Latest Contact Info) Description 07/12/2024 Procedure Pass [address] [address] 03/27/2025 1:00 PM EST Office Visit [facility] Internal Medicine 40 [place] [address] Darrell Sutherland MD 40 [place] [address] 07/10/2025 11:10 AM EDT Appointment [address] [address] Ciro Kelley MD [address] [place] [address] Avtar [email or web address] 07/10/2025 12:00 PM EDT Appointment [facility], X-Ray - [address] [address] Ciro Kelley MD [address] [place] [address] Avtar [email or web address] 07/16/2025 3:00 PM EDT Telemedicine - audio only [facility] Radiology [facility] 70 [place] [facility], 3rd Floor, [place] [address] Ciro Kelley MD [address] [place] [address] Avtar [email or web address] Health Maintenance Due Date Last Done [...] Report Only (09/11/2024 2:15 PM EDT) Result [facility] Provider CV ECHO ORDERABLES Final Result * Outside CT??Chest Report Only (09/11/2024 10:01 AM EDT) Result [facility] Provider IMG CT CHEST Final Res ult * Basic metabolic panel (08/07/2024 11:15 AM EDT) Result [facility] Provider LAB BLOOD ORDERABLES Yuliet l Result * Outside Potassium Level (08/07/2024) Potassium level - External 4.0 3.4 - 5.0 mmol/L EXTERNAL NON-INTERFACED REF LAB Result [facility] Provider LAB BLOOD ORDERABLES Yuliet l Result EXTERNAL NON-INTERFACED REF LAB * (ABNORMAL) Outside Serum Creatinine Level (08/07/2024) Creatinine, serum - External 0.75(A) 0.8 - 1.3 mg/dL EXTERNAL NON-INTERFACED REF LAB Result [facility] Provider LAB BLOOD ORDERABLES Yuliet l Result EXTERNAL NON-INTERFACED REF LAB * OUTSIDE BONE DENSITY SCREENING (07/14/2017) BONE DENSITY SCREENING - EXTERNAL 2 yr recall Result [facility] Ofelia ESTRELLA HEALTH MAINTENANCE Final Result from Last 3 Months or Most Recently Relevant to Health Maintenance Insurance MEDICARE PART A & B [employer] MEDEX SUPPLEMENT MEDICARE PART A & B [employer] MEDEX SUPPLEMENT MEDICARE PART A & B [employer] MEDEX SUPPLEMENT MEDICARE PART A & B [employer] MEDEX SUPPLEMENT MEDICARE PART A & B [facility] PART A & B [employer]EX SUPPLEMENT MEDICARE PART A & B [email or web address] MEDEX SUPPLEMENT MEDICARE PART A & B Member Subscriber Plan / Payer (Ef fective 2007-) Name:Sudha George Member ID:[id number] Relation to Subscriber:Self Name:Sudha George Subscriber ID:[id number] Payer ID:[id number] Group ID:Not on file Type:Medicare Address: [employer] [address] [email or web address] CROSS MEDEX SUPPLEMENT MEDICARE PART A & B [employer] MEDEX SUPPLEMENT Care Teams Jewelry Maker Relationship Specialty Start Date End Date Darrell Sutherland MD [address] [place] [address] [email or web address] PCP - General Internal Medicine 01/11/17 Darrell Sutherland MD [address] [place] [address] [email or web address] Insurance Assigned Provider 05/28/23 Travis Monge MD [address] [place] [address] [place] [address] Pulmonary Disease 06/01/22 Additional Source Comments The information contained in this document represents components of the legal health record. It is not the complete legal health record.[facility]
--- OUTSIDE RECORDS SUMMARY | 2024-11-06 16:56 | XMS_ITS | Encounter Summary ---
Author Organization [facility] Address [facility] [employer] [address] [address] Phone Care Team Providers Care Supervisor Newspaper Deliveries Name Role Phone Darrell Sutherland MD Primary Care Provider Darrell Sutherland MD Unavailable [phone] Travis Monge MD Unavailable [phone] Melanie Henson RN Unavailable Encounter Details Date Type Department Care Team (Late st Contact Info) Description 03/23/2022 [facility] Scan [address] [address] Social History Tobacco Use Types Packs/Day Years [...] Team (Latest Contact Info) Description 07/12/[address] [address] 03/27/2025 1:00 PM EST Office Visit [facility] Internal Medicine [address] [place] [address] Darrell Sutherland MD 40 [place] [address] 07/10/2025 11:10 AM EDT Appointment [facility] Mri - [address] [address] Ciro Kelley MD [address] [place] [address] Avtar [email or web address] 07/10/2025 12:00 PM EDT Appointment [facility] X-Ray [address] [address] Ciro Kelley MD [address] [place] [address] Avtar [email or web address] 07/16/2025 3:00 PM EDT Telemedicine - audio only [facility] Radiology [facility] Clinic [address] [facility], 3rd Floor, [place] [address] Ciro Kelley MD [address] [place] [address] Avtar [email or web address] documented as of this encounter Visit Diagnoses Not on filedocumented in this encounter Additional Health Concerns Infection Onset Date Last Indicated Resolved Time CoV-Risk 07/13/2023 07/13/2023 07/24/2023 1:22 AM EDT Assessment Noted Time PHQ-2 Depression Total Score: 0 01/26/20 12:55 PM EST documented as of this encounter Care Teams Supervisor Newspaper Deliveries Relationship Specialty Start Date End Date Darrell Sutherland MD [address] [place] [address] [email or web address] PCP - General Internal Medicine 01/11/17 Darrell Sutherland MD [address] [place] [address] [email or web address] Insurance Assigned Provider 05/28/23 Travis Monge MD [address] [place] [address] [place] [address] Pulmonary Disease 06/01/22 Melanie Henson, RN [address] [place] [phone] [email or web address] iCMP Rn Lpn Lvn 09/19/23 10/24/23 documented as of this encounter Additional Source Comments The information contained in this document represents components of the legal health record. It is not the complete legal health record.[facility]
--- OUTSIDE RECORDS SUMMARY | 2024-11-06 16:56 | XMS_ITS | Encounter Summary ---
Author Organization [facility] Address [address] [place] [address] Phone Care Team Providers Care Demolition Worker Name Role Phone Darrell Sutherland MD Primary Care Provider Darrell Sutherland MD Unavailable [phone] Travis Monge MD Unavailable Melanie Henson RN Unavailable Encounter Details Date Type Department Care Team (Late st Contact Info) Description 06/08/[address] [facility] Periop [address] [place] [address] Social History Tobacco Use Types Packs/Day Years [...] (Latest Contact Info) Description 07/12/2024 Procedure Pass [facility], [facility] [address] [place] [address] 03/27/2025 1:00 PM EST Office Visit [facility] Internal Medicine [address] [place] [address] Darrell Sutherland MD [address] [place] [address] [email or web address] 07/10/2025 11:10 AM EDT Appointment [facility] Mri - [address] [address] Ciro Kelley MD 55 [place] [address] Avtar [email or web address] 07/10/2025 12:00 PM EDT Appointment [facility] X-Ray [address] [address] Ciro Kelley MD [address] [place] [address] Avtar [email or web address] 07/16/2025 3:00 PM EDT Telemedicine - audio only [facility] Radiology [facility] 70 [facility], 3rd Floor, [place] [address] Ciro Kelley MD [address] [place] [address] Avtar [email or web address] documented as of this encounter Visit Diagnoses Not on filedocumented in this encounter Additional Health Concerns Infection Onset Date Last Indicated Resolved Time CoV-Risk 07/13/2023 07/13/2023 07/24/2023 1:22 AM EDT Assessment Noted Time PHQ-2 Depression Total Score: 0 01/26/20 12:55 PM EST documented as of this encounter Care Teams Demolition Worker Relationship Specialty Start Date End Date Darrell Sutherland MD [address] [place] [address] [email or web address] PCP - General Internal Medicine 01/11/17 Darrell Sutherland MD [address] [place] [address] [email or web address] Insurance Assigned Provider 05/28/23 Travis Monge MD [address] [place] [address] [place] [address] Pulmonary Disease 06/01/22 Melanie Henson, RN [address] [place] [address] [email or web address] iCMP System Development Engineer 09/19/23 10/24/23 documented as of this encounter Additional Source Comments The information contained in this document represents components of the legal health record. It is not the complete legal health record.[facility]
--- OUTSIDE RECORDS SUMMARY | 2024-11-06 16:56 | XMS_ITS | Clinical Summary ---
Author Organization [facility] Address [address] [place] [address] Phone Care Team Providers Care Vault Cashier Name Role Phone Darrell Sutherland MD Primary Care Provider [phone] Surgical History Surgery Date Site/Laterality Comments US [...] PM EST Appointment [facility] [address] [address] Health Maintenance Due Date Last [...] age to complete this topic Insurance MEDICARE [facility] Care Teams Vault Cashier Relationship Specialty Start Date End Date Darrell Sutherland MD [address] [place] [address] PCP - General Internal Medicine 12/12/23
--- OUTSIDE RECORDS SUMMARY | 2024-11-06 16:56 | XMS_ITS | Encounter Summary ---
Author Organization [facility] Address [address] [employer] [facility] [address] [place] [address] Phone Care Team Providers Care Patrol Supervisor Name Role Phone Darrell Sutherland MD Primary Care Provider Darrell Sutherland MD Unavailable [phone] Travis Monge MD Unavailable Melanie Henson RN Unavailable [phone] Encounter Details Date Type Department Care Team (Late st Contact Info) Description 07/26/2023 Procedure Pass [facility], [address] [address] Social History Tobacco Use Types Packs/Day Years [...] (Latest Contact Info) Description 07/12/2024 Procedure Pass [address] [address] 03/27/2025 1:00 PM EST Office Visit [facility] Internal Medicine [address] [place] [address] Darrell Sutherland MD 40 [place] [address] 07/10/2025 11:10 AM EDT Appointment [address] [address] Ciro Kelley MD [address] [place] [address] Avtar [email or web address] 07/10/2025 12:00 PM EDT Appointment [facility], X-Ray - [address] [address] Ciro Kelley MD [address] [place] [address] Avtar [email or web address] 07/16/2025 3:00 PM EDT Telemedicine - audio only [facility] Radiology Cross [facility]al Clinic [address] [place] [address], 3rd Floor, [place] [address] Ciro Kelley MD [address] [place] [address] Avtar [email or web address] documented as of this encounter Visit Diagnoses Not on filedocumented in this encounter Additional Health Concerns Assessment Noted Time PHQ-9 Depression Total Score: 6 01/28/20 23 12:49 PM EST PHQ-2 Depression Total Score: 0 02/23/19 25 12:42 PM EST documented as of this encounter Care Teams Patrol Supervisor Relationship Specialty Start Date End Date Darrell Sutherland MD [address] [place] [address] PCP - General Internal Medicine 01/11/17 Darrell Sutherland MD [address] [place] [address] Insurance Assigned Provider 05/28/23 Travis Monge MD [address] [place] [address] [place] [address] Pulmonary Disease 06/01/22 Melanie Henson, RN [address] [place] [phone] iCMP Draftsperson 09/19/23 10/24/23 documented as of this encounter Additional Source Comments The information contained in this document represents components of the legal health record. It is not the complete legal health record.[facility]
--- OUTSIDE RECORDS SUMMARY | 2024-11-06 16:56 | XMS_ITS | Encounter Summary ---
Author Organization [facility] Address [address] [place] [address] Phone Care Team Providers Care Hand Shoe Cutter Name Role Phone Darrell Sutherland MD Primary Care Provider Darrell Sutherland MD Unavailable [phone] Travis Monge MD Unavailable Melanie Henson RN Unavailable [phone] Encounter Details Date Type Department Care Team (Late st Contact Info) Description 06/15/[address] [address] Social History Tobacco Use Types Packs/Day Years [...] Team (Latest Contact Info) Description 07/12/[address] [address] 03/27/2025 1:00 PM EST Office Visit [facility] Internal Medicine [address] [place] [address] Darrell Sutherland MD [address] [place] [address] 07/10/2025 11:10 AM EDT Appointment [facility] Mri [address] [address] Ciro Kelley MD [address] [place] [address] Avtar [email or web address] 07/10/2025 12:00 PM EDT Appointment [facility] X-Ray [address] [address] Ciro Kelley MD [address] [place] [address] Avtar [email or web address] 07/16/2025 3:00 PM EDT Telemedicine - audio only [facility] Radiology [facility] 70 [facility], 3rd Floor, [place] [address] Ciro Kelley MD [address] [place] [address] Avtar [email or web address] documented as of this encounter Visit Diagnoses Not on filedocumented in this encounter Additional Health Concerns Infection Onset Date Last Indicated Resolved Time CoV-Risk 07/13/2023 07/13/2023 07/24/2023 1:22 AM EDT Assessment Noted Time PHQ-2 Depression Total Score: 0 01/26/20 12:55 PM EST documented as of this encounter Care Teams Hand Shoe Cutter Relationship Specialty Start Date End Date Darrell Sutherland MD [address] [place] [address] [email or web address] PCP - General Internal Medicine 01/11/17 Darrell Sutherland MD [address] [place] [address] [email or web address] Insurance Assigned Provider 05/28/23 Travis Monge MD [address] [place] [address] [place] [address] Pulmonary Disease 06/01/22 Melanie Henson, RN [address] [place] [address] [phone] [email or web address] iCMP Gauge And Weigh Machine Operator 09/19/23 10/24/23 documented as of this encounter Additional Source Comments The information contained in this document represents components of the legal health record. It is not the complete legal health record.[facility]
--- OUTSIDE RECORDS SUMMARY | 2024-11-06 16:56 | XMS_ITS | Encounter Summary ---
Author Organization [facility] Address [address] [place] [address] Phone Care Team Providers Care Memorial Counselor Name Role Phone Darrell Sutherland MD Primary Care Provider Darrell Sutherland MD Unavailable [phone] Travis Monge MD Unavailable [phone] Melanie Henson RN Unavailable [phone] Encounter Details Date Type Department Care Team (Late st Contact Info) Description 06/08/2022 Procedure Pass [facility] Periop [address] [place] [address] Social History Tobacco Use Types Packs/Day Years [...] (Latest Contact Info) Description 07/12/2024 Procedure Pass [facility] [address] [place] [address] 03/27/2025 1:00 PM EST Office Visit [facility] Internal Medicine [address] [place] [address] Darrell Sutherland MD 40 [place] [address] [email or web address] 07/10/2025 11:10 AM EDT Appointment [facility] Mri - [address] [address] Ciro Kelley MD [address] [place] [address] Avtar [email or web address] 07/10/2025 12:00 PM EDT Appointment [facility] X-Ray [address] [address] Ciro Kelley MD [address] [place] [address] Avtar [email or web address] 07/16/2025 3:00 PM EDT Telemedicine - audio only [facility] Radiology [facility] 70 [facility], 3rd Floor, [place] [address] Ciro Kelley MD [address] [place] [address] Avtar [email or web address] documented as of this encounter Visit Diagnoses Not on filedocumented in this encounter Additional Health Concerns Infection Onset Date Last Indicated Resolved Time CoV-Risk 07/13/2023 07/13/2023 07/24/2023 1:22 AM EDT Assessment Noted Time PHQ-2 Depression Total Score: 0 01/26/20 12:55 PM EST documented as of this encounter Care Teams Memorial Counselor Relationship Specialty Start Date End Date Darrell Sutherland MD [address] [place] [address] [email or web address] PCP - General Internal Medicine 01/11/17 Darrell Sutherland MD [address] [place] [address] [email or web address] Insurance Assigned Provider 05/28/23 Travis Monge MD [address] [place] [address] [place] [address] Pulmonary Disease 06/01/22 Melanie Henson, RN [address] [place] [address] [email or web address] iCMP Blog Writer 09/19/23 10/24/23 documented as of this encounter Additional Source Comments The information contained in this document represents components of the legal health record. It is not the complete legal health record.[facility]
--- OUTSIDE RECORDS SUMMARY | 2024-11-06 16:56 | XMS_ITS | Encounter Summary ---
Author Organization [facility] Address [address] [employer] [address] [address] Phone Care Team Providers Care Civilian Technician Name Role Phone Darrell Sutherland MD Primary Care Provider [phone] Darrell Sutherland MD Unavailable [phone] Travis Monge MD Unavailable Melanie Henson RN Unavailable Encounter Details Date Type Department Care Team (Late st Contact Info) Description 01/18/2023 Procedure Pass [facility], [address] [address] Social History Tobacco Use Types Packs/Day Years [...] (Latest Contact Info) Description 07/12/2024 Procedure Pass [address] [address] 03/27/2025 1:00 PM EST Office Visit [facility] Internal Medicine 40 [place] [address] Darrell Sutherland MD 40 [place] [address] 07/10/2025 11:10 AM EDT Appointment [address] [address] Ciro Kelley MD [address] [place] [address] Avtar [email or web address] 07/10/2025 12:00 PM EDT Appointment [facility], X-Ray - [address] [address] Ciro Kelley MD [address] [place] [address] Avtar [email or web address] 07/16/2025 3:00 PM EDT Telemedicine - audio only [facility] Radiology Cross [facility]al Clinic 70 [facility], 3rd Floor, [place] [address] Ciro Kelley MD [address] [place] [address] Avtar [email or web address] documented as of this encounter Visit Diagnoses Not on filedocumented in this encounter Additional Health Concerns Infection Onset Date Last Indicated Resolved Time CoV-Risk 07/13/2023 07/13/2023 07/24/2023 1:22 AM EDT Assessment Noted Time PHQ-9 Depression Total Score: 6 01/28/20 23 12:49 PM EST PHQ-2 Depression Total Score: 4 01/28/20 23 12:49 PM EST documented as of this encounter Care Teams Civilian Technician Relationship Specialty Start Date End Date Darrell Sutherland MD 40 [place] [address] [email or web address] PCP - General Internal Medicine 01/11/17 Darrell Sutherland MD 40 [place] [address] Insurance Assigned Provider 05/28/23 Travis Monge MD [address] [place] [address] [place] [address] Pulmonary Disease 06/01/22 Melanie Henson, RN [address] [place] [address] [phone] [email or web address] iCMP Roving Inspector 09/19/23 10/24/23 documented as of this encounter Additional Source Comments The information contained in this document represents components of the legal health record. It is not the complete legal health record.[facility]
--- OUTSIDE RECORDS SUMMARY | 2024-11-06 16:56 | XMS_ITS | Encounter Summary ---
Author Organization [facility] Address [address] [place] [address] Phone Care Team Providers Care Lion Tamer Name Role Phone Darrell Sutherland MD Unavailable Radha Giron HAY BALER Unavailable Kianna Abreu HAY BALER Unavailable [phone] Ky Barone BLADE BONER Unavailable Darrell Sutherland MD Primary Care Provider Darrell Sutherland MD Unavailable [phone] Travis Monge MD Unavailable [phone] Melanie Henson RN Unavailable Encounter Details Date Type Department Care Team (Latest Contact Info) Description 06/01/2017 Transcribe Orders [facility] Laboratory [address] [place], [place] [phone] Darrell Sutherland MD [address] [place], [place] [phone] [email or web address] Pure hypercholesterolemia (Primary Dx); Essential [...] (Latest Contact Info) Description 07/12/2024 Procedure Pass [address] [address] 03/27/2025 1:00 PM EST Office Visit [facility] Internal Medicine [address] [place] [address] Darrell Sutherland MD [address] [place] [address] 07/10/2025 11:10 AM EDT Appointment [address] [address] Ciro Kelley MD [address] [place] [address] [email or web address] [email or web address] 07/10/2025 12:00 PM EDT Appointment [facility] X-Ray - [address] [address] Ciro Kelley MD [address] [place] [address] [email or web address] 07/16/2025 3:00 PM EDT Telemedicine - audio only [facility] Radiology Cross [facility]al Clinic 70 [facility], 3rd Floor, [place] [address] Ciro Kelley MD [address] [place] [address] Avtar [email or web address] documented as of this encounter Results * (ABNORMAL) 25-OH vitamin D (06/01/2017 8:19 AM EDT) 25 [place] VIT D (TOTAL) 24(L) 30 - 1,000 ng/mL [facility] Blood 06/01/2017 8:19 AM EDT 06/01/2017 8:23 AM EDT us Darrell Sutherland MD LAB BLOOD ORDERABLES Final Re sult [address] [address] * Magnesium (06/01/2017 8:19 AM EDT) [facility] MAGNESIUM 2.1 1.6 - 2.6 mg/dL [facility] Blood 06/01/2017 8:19 AM EDT 06/01/2017 8:23 AM EDT us Darrell Sutherland MD LAB BLOOD ORDERABLES Final Re sult [address] [address] * Comprehensive metabolic panel (06/01/2017 8:19 AM EDT) Pathologist [facility] SODIUM 141 133 - 146 mmol/L [facility] POTASSIUM 3.8 3.3 - 5.1 mmol/L [facility] CHLORIDE 101 96 - 108 mmol/L [facility] CO2 27 21 - 35 mmol/L [facility] BUN 18 6 - 19 mg/dL [facility] CREATININE 0.60 0.5 - 1.5 mg/dL [facility] GLUCOSE 92 70 - 99 mg/dL [facility] ALBUMIN 4.1 3.9 - 4.8 g/dL [facility] TOTAL PROTEIN 7.2 6.5 - 8.0 g/dL [facility] CALCIUM 9.3 8.4 - 10.3 mg/dL [facility] ALKALINE PHOSPHATASE 71 39 - 117 U/L [facility] TOTAL BILIRUBIN 0.4 0.0 - 1.2 mg/dL [facility] AST 21 0 - 37 U/L [facility] ALT 20 0 - 40 U/L [facility] GLOBULIN 3.1 1 - 4.8 g/dL [facility] EGFR 90 >59 mL/min/1.7 3m2 [facility] Comment:If patient is black, multiply result by 1.159. The eGFR calculation has changed from the MDRD equation to the CKD-EPI equation as of April 26, 2017. ANION GAP 17 10 - 20 mmol/L [facility] Blood 06/01/2017 8:19 AM EDT 06/01/2017 8:23 AM EDT us Darrell Sutherland MD LAB BLOOD ORDERABLES Final Re sult Performing Organization Address [facility] Co de Phone Number [address] [address] * TSH (06/01/2017 8:19 AM EDT) TSH 1.86 0.27 - 4.20 uIU/mL [facility] Blood 06/01/2017 8:19 AM EDT 06/01/2017 8:23 AM EDT us Darrell Sutherland MD LAB BLOOD ORDERABLES Final Re sult Performing Organization Address [facility] Co de Phone Number [address] [address] * Lipid panel (06/01/2017 8:19 AM EDT) HDL 46 mg/dL [facility] Comment: Interpretation: Risk Level Females Decreased >55mg/dL Average 50-55 mg/dL Increased <50 mg/dL CHOLESTEROL 191 0 - 240 mg/dL [facility] TRIGLYCERIDES 153 30 - 160 mg/dL [facility] LDL 114 50 - 129 mg/dL [facility] Comment: LDL levels in terms of risk for coronary heart disease: <100 mg/dL: Optimal 100-129 mg/dL: Near or above optimal 130-159 mg/dL: Borderline high 160-189 mg/dL: High >190 mg/dL: Very High CARDIAC RISK RATIO 4.2 3.3 - 4.4 C [facility] Blood 06/01/2017 8:19 AM EDT 06/01/2017 8:23 AM EDT us Darrell Sutherland MD LAB BLOOD ORDERABLES Final Re sult Performing Organization Address [facility]/ZIP Co de Phone Number [address] [address] * (ABNORMAL) CBC (06/01/2017 8:19 AM EDT) WBC 6.60 3.40 - 11.20 K/uL [facility] RBC 4.84(H) 3.80 - 4.80 M/uL [facility] HGB 13.8 12.0 - 15.0 g/dL [facility] HCT 42.8 36.0 - 46.0 % [facility] PLT 226 130 - 400 K/uL [facility] MCV 88.4 79.0 - 98.0 fL [facility] MCH 28.5 27.0 - 34.8 pg [facility] MCHC 32.2 31.5 - 36.0 g/dL [facility] RDW 14.2 10.8 - 14.6 % [facility] MPV 10.0 9.4 - 12.4 fl [facility] NRBC 0.00 /100 WBCs [facility] ABSOLUTE NRBC 0.00 K/uL [facility] Blood 06/01/2017 8:19 AM EDT 06/01/2017 8:23 AM EDT us Darrell Sutherland MD LAB BLOOD ORDERABLES Final Re sult Performing Organization Address City/[facility]/ZIP Co de Phone Number [address] [address] documented in this encounter Visit Diagnoses Diagnosis Pure hypercholesterolemia- Primary Essential hypertension, benign Vitamin D deficiency documented in this encounter Additional Health Concerns Infection Onset Date Last Indicated Resolved Time CoV-Risk 07/13/2023 07/13/2023 07/24/2023 1:22 AM EDT Assessment Noted Time PHQ-2 Depression Total Score: 0 04/30/19 18 10:53 AM EST documented as of this encounter Care Teams Lion Tamer Relationship Specialty Start Date End Date Darrell Sutherland MD [address] [place] [address] PCP - General Internal Medicine 01/11/17 Darrell Sutherland MD [address] [place] [address] Historical LMR Provider 12/11/16 07/31/20 Radha Giron, HAY BALER [address] [place] [address] [address] [place] [address] Historical LMR Provider 12/11/16 Kianna Abreu NP [address] [place] [address] 6 [place] [address] Historical LMR Provider 12/11/16 07/31/20 Ky Barone CNP [address] [facility] [address] [place] [address] Historical LMR Provider 12/11/1607/31 Darrell Sutherland MD [address] [place] [address] Insurance Assigned Provider 05/28/23 Travis Monge MD [address] [place] [address] [place] [address] Pulmonary Disease 06/01/22 Melanie Henson, RN [address] [place] [address] [email or web address] iCMP Director Case 09/19/23 10/24/23 documented as of this encounter Additional Source Comments The information contained in this document represents components of the legal health record. It is not the complete legal health record.[facility]
== END 2024-11-06 13:41 | disposition home or self-care (01) ==
LOC: HO.HPS 12:58
PROVIDERS: PCP Internal Medicine; Visit Provider Hospitalist
DX: J18.9 Pneumonia, unspecified organism (principal); J84.9 Interstitial pulmonary disease, unspecified; J96.11 Chronic respiratory failure with hypoxia; I26.94 Multiple subsegmental thrombotic pulmonary emboli without acute cor pulmonale; I48.19 Other persistent atrial fibrillation; C64.9 Malignant neoplasm of unspecified kidney, except renal pelvis; R91.8 Other nonspecific abnormal finding of lung field
CPT/HCPCS: 99214; G2211

== ENCOUNTER → 2024-11-06 12:57 | Outpatient (BNVA) | payer MEDICARE, SELFPAY | PROVIDERS: PCP Internal Medicine; Visit Provider Hospitalist | DX: J84.9 Interstitial pulmonary disease, unspecified (principal); J96.11 Chronic respiratory failure with hypoxia; I26.94 Multiple subsegmental thrombotic pulmonary emboli without acute cor pulmonale; R91.8 Other nonspecific abnormal finding of lung field; C64.9 Malignant neoplasm of unspecified kidney, except renal pelvis; Z99.81 Dependence on supplemental oxygen | CPT/HCPCS: 99212 ==

== ENCOUNTER 2024-11-16 09:42 | Outpatient (AMB) | payer MEDICARE, SELFPAY ==
--- OUTSIDE RECORDS SUMMARY | 2023-05-19 10:00 | XMS_ITS ---
Author Organization [facility] Address [address] [place] [address] Care Team Providers Care Innovation Manager Name Role Phone Darrell Sutherland MD Primary Care Provider Unavaila Jay Bailey Unavailable [phone] REASON FOR VISIT lower GI bleed Problems Problem Type SNOMED Code ICD Code Onset Dates Problem Status W/U Status Risk Notes Problem Diverticular disease of colon (002720314) Diverticulosis of large intestine without perforation or abscess without bleeding (K57.30) Active confirmed Encounters Encounter Location Date Provider Diagnosis [facility] Outpatient [address] [place] [phone] 05/19/2023 Jay Guido Colon polyps K63.5 ; Lower GI bleeding K92.2 ; Diverticulosis of large intestine without perforation or abscess without bleeding K57.30 and Other hemorrhoids K64.8 Assessments Encounter Date Diagnosis (ICD Code) Assessment Notes Treatment Notes Treatment Clinical Notes Section Notes 05/19/2023 Colon polyps (ICD-10 - K63.5) 05/19/2023 Lower GI bleeding (ICD-10 - K92.2) 05/19/2023 Diverticulosis of large intestine without perforation or abscess without bleeding (ICD-10 - K57.30) 05/19/2023 Other hemorrhoids (ICD-10 - K64.8) Plan Of Treatment No Information Progress Notes * ROLAN GEORGE EDOB:[birth year] (83 yo F)Acc No.[id number]:05/19/2023 COLON WITH MAC Patient: Judy ROLAN ROGER Provider: Jeniffer Guido MD :1940 A ge:82 Y S ex:Female Date:05/19/2023 Address:[address] [place] [address], [id number] Pcp:Darrell Sutherland MD Subjective: * Chief Complaints: * 1 . lower GI bleed. * Medical History: Objective: * Vitals: Assessment: * Assessment: 1. C olon polyps - K63.5 (Primary) 2 . L ower GI bleeding - K92.2 ? 3 . D iverticulosis of large intestine without perforation or abscess without bleeding - K57.30 4 . O ther hemorrhoids - K64.8 Plan: * Treatment: * Procedure Codes: 4 5385 LESION REMOVAL COLONOSCOPY, 0529F INTRVL 3+YRS PTS CLNSCP DOCD, 0528F RCMND FLW-UP 10 YRS DOCD, Modifiers: 1P * * The named appointment provid er may or may not be the originator of this progress note, and it is not deemed complete until electronically signed by the appointment provider. Sign off status: Pending * Provider: Jeniffer Guido MD Date: 0 05/19/2023 Generated for Naila arrington/Daniela/Vanceitting on: 0 11/16/2024 10:42 AM EDT
[2024-11-16 10:07] LABS: Prothrombin Time Whole Bld POC 27.9 sec (11.1-13.5); ~PT, ~INR - Anti Coag Clinic 2.3 (0.9-1.1)
--- NOTE | 2024-11-16 10:16 | MHC.OFFVISCO ---
Intake Intake Visit Reasons: Anticoagulation Allergies amlodipine Allergy (Intermediate, Verified 11/16/24 10:01) Difficulty Breathing latex (LATEX) Allergy (Intermediate, Verified 11/16/24 10:01) RASH seasonal Allergy (Intermediate, Uncoded 11/16/24 10:01) Sneezing altace Adverse Reaction (Mild, Uncoded 11/16/24 10:01) Cough Medication List - Last Reconciled 11/16/24 by Farheen Pruett RN atenolol 50 mg PO BID cholecalciferol (vitamin D3) 25 mcg PO DAILY digoxin 125 mcg PO DAILY furosemide (Lasix) 20 mg PO DAILY PRN olmesartan 20 mg PO DAILY Oxygen Home Use As directed warfarin 5 mg See Protocol PO DAILY Nursing Note INR: 2.3 in therapeutic range Medications and supplements reviewed No changes in health, diet, medications, or supplements, Denies any signs and symptoms of bleeding or bruising or clotting. 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 Illness/Depression: No Coding Level of Care Code Est Patient Level 1 Diagnoses Current use of anticoagulant therapy Z79.01 Results AMB INR Fingerstick AMB INR Fingerstick 2.3 Last Edit by Farheen Pruett RN on 11/16/24 10:09 MANUAL ENTRY Assessment & Plan Assessment & Plan (1) Current use of anticoagulant therapy: Code(s): Z79.01 - [facility] (current) use of anticoagulants Category: Medical
--- OUTSIDE RECORDS SUMMARY | 2024-11-16 10:42 | XMS_ITS | Patient Health Record ---
Author Organization [facility] Address [address] [place] [address] Care Team Providers Care Flue Dust Laborer Name Role Phone Darrell Sutherland MD Primary Care Provider Dylon Leary Unavailable [phone] Allergies Allergen (clinical drug ingredient) Drug/Non Drug [...] Status Risk Notes Problem Acquired hallux valgus (88701956) Hallux valgus (acquired), left foot (M20.12) Active confirmed Problem Acquired hallux valgus (30550009) Hallux valgus (acquired), right foot (M20.11) Active confirmed Problem Acquired hammer toe of right foot (1953416317921 105) Other hammer toe(s) (acquired), right foot (M20.41) Active confirmed Problem Acquired hammer toe of left foot (4518930676213 103) Other hammer toe(s) (acquired), left foot (M20.42) Active confirmed Plan Of Treatment Pending Test Test Name Order Date X ray : Foot, right 3V 06/05/2020 Insurance Providers Payer Name Payer Address Payer Phone Subscriber Number Group Number Insured Name Patient Relationship to Insured Coverage Start Date Coverage End Date Medicare National Govt Svcs Inc [address] [place] [address] [id number] Sudha Meek Self - patient is the insured [employer] [address] [place] [address] [id number] Sudha Meek Self - patient is the insured Medical (General) History Medical History History ICD Code High blood pressure Surgical History Surgery Date(Month/Year) right knee replacement 10/2016
--- OUTSIDE RECORDS SUMMARY | 2024-11-16 10:42 | XMS_ITS | Encounter Summary ---
Author Organization [facility] Address [address] [employer] [address] [address] Phone Care Team Providers Care Food Crops Farm Hand Name Role Phone Darrell Sutherland MD Primary Care Provider [phone] Darerll Sutherland MD Unavailable [phone] Travis Monge MD Unavailable Melanie Henson RN Unavailable [phone] Encounter Details Date Type Department Care Team (Late st Contact Info) Description 07/20/[address] [facility], [address] [address] Social History Tobacco Use Types Packs/Day Years [...] Contact Info) Description 07/12/2024 Procedure Pass [address] [address] 03/27/2025 1:00 PM EST Office Visit [facility] Internal Medicine [address] [place] [address] Darrell Sutherland MD 40 [place] [address] 07/10/2025 11:10 AM EDT Appointment [address] [address] Ciro Kelley MD [address] [place] [address] Avtar [email or web address] 07/10/2025 12:00 PM EDT Appointment [facility], X-Ray - [address] [address] Ciro Kelley MD [address] [place] [address] Avtar [email or web address] 07/16/2025 3:00 PM EDT Telemedicine - audio only [facility] Radiology Cross Sectional Clinic 70 [facility], 3rd Floor, [place] [address] Ciro Kelley MD [address] [place] [address] Avtar [email or web address] documented as of this encounter Visit Diagnoses Not on filedocumented in this encounter Additional Health Concerns Infection Onset Date Last Indicated Resolved Time CoV-Risk 07/13/2023 07/13/2023 07/24/2023 1:22 AM EDT Assessment Noted Time PHQ-2 Depression Total Score: 0 01/26/20 12:55 PM EST documented as of this encounter Care Teams Food Crops Farm Hand Relationship Specialty Start Date End Date Darrell Sutherland MD [address] [place] [address] [email or web address] PCP - General Internal Medicine 01/11/17 Darrell Sutherland MD [address] [place] [address] Insurance Assigned Provider 05/28/23 Travis Monge MD [address] [place] [address] [place] [address] Pulmonary Disease 06/01/22 Melanie Henson, RN [address] [place] [address] [email or web address] iCMP Unscrambler 09/19/23 10/24/23 documented as of this encounter Additional Source Comments The information contained in this document represents components of the legal health record. It is not the complete legal health record.[facility]
--- OUTSIDE RECORDS SUMMARY | 2024-11-16 10:43 | XMS_ITS | Patient Health Record ---
Author Organization [facility] Address [address] [place] [address] Care Team Providers Care Nurse Tech Name Role Phone Darrell Sutherland MD Primary Care Provider Jay Talbot Unavailable [phone] Allergies No Known Allergies Reason For Referral [...] Risk Notes Problem Diverticular disease of colon (662974896) Diverticulosis of large intestine without perforation or abscess without bleeding (K57.30) Active confirmed Problem Gastrointestinal hemorrhage (79103237) Lower GI bleed (K92.2) Active confirmed Plan Of Treatment Future Test Test Name Order Date COLONOSCOPY 02/27/2013 COLONOSCOPY 05/12/2023 Insurance Providers Payer Name Payer Address Payer Phone Subscriber Number Group Number Insured Name Patient Relationship to Insured Coverage Start Date Coverage End Date MEDICARE OF [place] [address] [facility] [place] [address] [phone] [id number] ROLAN GEORGE Self - patient is the insured MED[employer] ATTN CLAIMS [address] [place] [address] [id number] ROLAN GEORGE Self - patient is the insured Medical (General) History Medical History History ICD Code Choledocholithiasis--removed via ERCP in 02/2010 prior to Lap [facility] Hypertension Denies MA,DM,CVA,renal disease AFIB - Dr. Ryan--Unsuccessful cardiover shanthi 02/2023 Interstitiail lung disease-Dr. 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
--- OUTSIDE RECORDS SUMMARY | 2024-11-16 10:43 | XMS_ITS | Encounter Summary ---
Author Organization [facility] Address [address] [place] [address] Phone Care Team Providers Care Marketing Specialist Name Role Phone Darrell Sutherland MD Unavailable Radha Giron RETAIL ACCOUNT SPECIALIST Unavailable [phone] Kianna Abreu RETAIL ACCOUNT SPECIALIST Unavailable [phone] Ky Barone FROZEN FOOD SELECTOR Unavailable Darrell Sutherland MD Primary Care Provider [phone] Darrell Sutherland MD Unavailable Travis Monge MD Unavailable Melanie Henson RN Unavailable Encounter Details Date Type Department Care Team (Latest Contact Info) Description 06/01/2017 Transcribe Orders [facility] Laboratory [address] [place], [place] [phone] Darrell Sutherland MD [address] [place], [place] [phone] [email or web address] Pure hypercholesterolemia (Primary Dx); Essential [...] (Latest Contact Info) Description 07/12/2024 Procedure Pass [address] [address] 03/27/2025 1:00 PM EST Office Visit [facility] Internal Medicine [address] [place] [address] Darrell Sutherland MD [address] [place] [address] 07/10/2025 11:10 AM EDT Appointment [address] [address] Ciro Kelley MD [address] [place] [address] Avtar [email or web address] 07/10/2025 12:00 PM EDT Appointment [facility] X-Ray - [address] [address] Ciro Kelley MD [address] [place] [address] Avtar [email or web address] 07/16/2025 3:00 PM EDT Telemedicine - audio only [facility] Radiology Cross [facility] [address] [facility], 3rd Floor, [place] [address] Ciro Kelley MD [address] [place] [address] Avtar [email or web address] documented as of this encounter Results * (ABNORMAL) 25-OH vitamin D (06/01/2017 8:19 AM EDT) 25 OH VIT D (TOTAL) 24(L) 30 - 1,000 ng/mL [facility] Blood 06/01/2017 8:19 AM EDT 06/01/2017 8:23 AM EDT us Darrell Sutherland MD LAB BLOOD ORDERABLES Final Re sult [address] [address] * Magnesium (06/01/2017 8:19 AM EDT) [facility] MAGNESIUM 2.1 1.6 - 2.6 mg/dL [facility] Blood 06/01/2017 8:19 AM EDT 06/01/2017 8:23 AM EDT us Darrell Sutherland MD LAB BLOOD ORDERABLES Final Re sult [address] [address] * Comprehensive metabolic panel (06/01/2017 8:19 AM EDT) Pathologist [facility] SODIUM 141 133 - 146 mmol/L [facility] POTASSIUM 3.8 3.3 - 5.1 mmol/L [facility] CHLORIDE 101 96 - 108 mmol/L [facility] CO2 27 21 - 35 mmol/L [facility] BUN 18 6 - 19 mg/dL [facility] CREATININE 0.60 0.5 - 1.5 mg/dL [facility] GLUCOSE 92 70 - 99 mg/dL [facility] ALBUMIN 4.1 3.9 - 4.8 g/dL [facility] TOTAL PROTEIN 7.2 6.5 - 8.0 g/dL [facility] CALCIUM 9.3 8.4 - 10.3 mg/dL [facility] ALKALINE PHOSPHATASE 71 39 - 117 U/L [facility] TOTAL BILIRUBIN 0.4 0.0 - 1.2 mg/dL [facility] AST 21 0 - 37 U/L [facility] ALT 20 0 - 40 U/L [facility] GLOBULIN 3.1 1 - 4.8 g/dL [facility] EGFR 90 >59 mL/min/1.7 3m2 [facility] Comment:If patient is black, multiply result by 1.159. The eGFR calculation has changed from the MDRD equation to the CKD-EPI equation as of April 26, 2017. ANION GAP 17 10 - 20 mmol/L [facility] Blood 06/01/2017 8:19 AM EDT 06/01/2017 8:23 AM EDT us Darrell Sutherland MD LAB BLOOD ORDERABLES Final Re sult Performing Organization Address [facility] Co de Phone Number [address] [address] * TSH (06/01/2017 8:19 AM EDT) TSH 1.86 0.27 - 4.20 uIU/mL [facility] Blood 06/01/2017 8:19 AM EDT 06/01/2017 8:23 AM EDT us Darrell Sutherland MD LAB BLOOD ORDERABLES Final Re sult Performing Organization Address [facility] Co de Phone Number [address] [address] * Lipid panel (06/01/2017 8:19 AM EDT) HDL 46 mg/dL [facility] Comment: Interpretation: Risk Level Females Decreased >55mg/dL Average 50-55 mg/dL Increased <50 mg/dL CHOLESTEROL 191 0 - 240 mg/dL [facility] TRIGLYCERIDES 153 30 - 160 mg/dL [facility] LDL 114 50 - 129 mg/dL [facility] Comment: LDL levels in terms of risk for coronary heart disease: <100 mg/dL: Optimal 100-129 mg/dL: Near or above optimal 130-159 mg/dL: Borderline high 160-189 mg/dL: High >190 mg/dL: Very High CARDIAC RISK RATIO 4.2 3.3 - 4.4 C [facility] Blood 06/01/2017 8:19 AM EDT 06/01/2017 8:23 AM EDT us Darrell Sutherland MD LAB BLOOD ORDERABLES Final Re sult Performing Organization Address [facility]/ZIP Co de Phone Number [address] [address] * (ABNORMAL) CBC (06/01/2017 8:19 AM EDT) WBC 6.60 3.40 - 11.20 K/uL [facility] RBC 4.84(H) 3.80 - 4.80 M/uL [facility] HGB 13.8 12.0 - 15.0 g/dL [facility] HCT 42.8 36.0 - 46.0 % [facility] PLT 226 130 - 400 K/uL [facility] MCV 88.4 79.0 - 98.0 fL [facility] MCH 28.5 27.0 - 34.8 pg [facility] MCHC 32.2 31.5 - 36.0 g/dL [facility] RDW 14.2 10.8 - 14.6 % [facility] MPV 10.0 9.4 - 12.4 fl [facility] NRBC 0.00 /100 WBCs [facility] ABSOLUTE NRBC 0.00 K/uL [facility] Blood 06/01/2017 8:19 AM EDT 06/01/2017 8:23 AM EDT us Darrell Sutherland MD LAB BLOOD ORDERABLES Final Re sult Performing Organization Address City/[facility]/ZIP Co de Phone Number [address] [address] documented in this encounter Visit Diagnoses Diagnosis Pure hypercholesterolemia- Primary Essential hypertension, benign Vitamin D deficiency documented in this encounter Additional Health Concerns Infection Onset Date Last Indicated Resolved Time CoV-Risk 07/13/2023 07/13/2023 07/24/2023 1:22 AM EDT Assessment Noted Time PHQ-2 Depression Total Score: 0 04/30/19 18 10:53 AM EST documented as of this encounter Care Teams Marketing Specialist Relationship Specialty Start Date End Date Darrell Sutherland MD [address] [place] [address] PCP - General Internal Medicine 01/11/17 Darrell Sutherland MD [address] [place] [address] Historical LMR Provider 12/11/16 07/31/20 Radha Giron, RETAIL ACCOUNT SPECIALIST [address] [place] [address] 104 [place] [address] Historical LMR Provider 12/11/16 Kianna Abreu NP [address] [place] [address] 6 [place] [address] Historical LMR Provider 12/11/16 07/31/20 Ky Barone CNP 22 [facility] [place] [address] Historical LMR Provider 12/11/1607/31 Darrell Sutherland MD [address] [place] [address] Insurance Assigned Provider 05/28/23 Travis Monge MD [address] [place] [address] [place] [address] Pulmonary Disease 06/01/22 Melanie Henson, RN 10 [place] [address] [email or web address] iCMP Him Manager 09/19/23 10/24/23 documented as of this encounter Additional Source Comments The information contained in this document represents components of the legal health record. It is not the complete legal health record.[facility]
--- OUTSIDE RECORDS SUMMARY | 2024-11-16 10:43 | XMS_ITS | Encounter Summary ---
Author Organization [facility] Address [address] [employer] [facility] ([place], [place]) [address] [place] [address] Phone Care Team Providers Care Postal Worker Name Role Phone Darrell Sutherland MD Primary Care Provider Darrell Sutherland MD Unavailable [phone] Travis Monge MD Unavailable Melanie Henson RN Unavailable [phone] Encounter Details Date Type Department Care Team (Late st Contact Info) Description 07/26/2023 Procedure Pass [facility], [address] [address] Social History Tobacco Use Types Packs/Day Years [...] (Latest Contact Info) Description 07/12/2024 Procedure Pass [address] [address] 03/27/2025 1:00 PM EST Office Visit [facility] Internal Medicine [address] [place] [address] Darrell Sutherland MD [address] [place] [address] 07/10/2025 11:10 AM EDT Appointment [address] [address] Ciro Kelley MD [address] [place] [address] Avtar [email or web address] 07/10/2025 12:00 PM EDT Appointment [facility], X-Ray - [address] [address] Ciro Kelley MD [address] [place] [address] Avtar [email or web address] 07/16/2025 3:00 PM EDT Telemedicine - audio only [facility] Radiology Cross [facility] [address] [facility], 3rd Floor, [place] [address] Ciro Kelley MD [address] [place] [address] Avtra [email or web address] documented as of this encounter Visit Diagnoses Not on filedocumented in this encounter Additional Health Concerns Assessment Noted Time PHQ-9 Depression Total Score: 6 01/28/20 23 12:49 PM EST PHQ-2 Depression Total Score: 0 02/23/19 25 12:42 PM EST documented as of this encounter Care Teams Postal Worker Relationship Specialty Start Date End Date Darrell Sutherland MD 40 [place] [address] PCP - General Internal Medicine 01/11/17 Darrell Sutherland MD [address] [place] [address] Insurance Assigned Provider 05/28/23 Travis Monge MD [address] [place] [address] [place] [address] Pulmonary Disease 06/01/22 Melanie Henson, RN [address] [place] [address] [id number] iCMP Polisher Eyeglass Frames 09/19/23 10/24/23 documented as of this encounter Additional Source Comments The information contained in this document represents components of the legal health record. It is not the complete legal health record.[facility]
--- OUTSIDE RECORDS SUMMARY | 2024-11-16 10:43 | XMS_ITS | Encounter Summary ---
Author Organization [facility] Address [address] [address]95[address] [place] [address] Phone Care Team Providers Care Electroencephalographic Technologist Name Role Phone Darrell Sutherland MD Primary Care Provider [phone] Darrell Sutherland MD Unavailable [phone] Travis Monge MD Unavailable Melanie Henson RN Unavailable [phone] Encounter Details Date Type Department Care Team (Late st Contact Info) Description 06/15/[address] [address] Social History Tobacco Use Types Packs/Day Years [...] Team (Latest Contact Info) Description 07/12/[address] [address] 03/27/2025 1:00 PM EST Office Visit [facility] Internal Medicine 40 [place] [address] Darrell Sutherland MD 40 [place] [address] 07/10/2025 11:10 AM EDT Appointment [address] [address] Ciro Kelley MD [address] [place] [address] Avtar [email or web address] 07/10/2025 12:00 PM EDT Appointment [facility] X-Ray [address] [address] Ciro Kelley MD [address] [place] [address] Avtar [email or web address] 07/16/2025 3:00 PM EDT Telemedicine - audio only [facility] Radiology Cross Sectional Clinic 70 [facility], 3rd Floor, [place] [address] Ciro Kelley MD [address] [place] [address] Avtar [email or web address] documented as of this encounter Visit Diagnoses Not on filedocumented in this encounter Additional Health Concerns Infection Onset Date Last Indicated Resolved Time CoV-Risk 07/13/2023 07/13/2023 07/24/2023 1:22 AM EDT Assessment Noted Time PHQ-2 Depression Total Score: 0 01/26/20 12:55 PM EST documented as of this encounter Care Teams Electroencephalographic Technologist Relationship Specialty Start Date End Date Darrell Sutherland MD [address] [place] [address] [email or web address] PCP - General Internal Medicine 01/11/17 Darrell Sutherland MD [address] [place] [address] [email or web address] Insurance Assigned Provider 05/28/23 Travis Monge MD [address] [place] [address] [place] [address] Pulmonary Disease 06/01/22 Melanie Henson, RN [address] [place] [phone] [email or web address] iCMP Carry Out Clerk 09/19/23 10/24/23 documented as of this encounter Additional Source Comments The information contained in this document represents components of the legal health record. It is not the complete legal health record.[facility]
--- OUTSIDE RECORDS SUMMARY | 2024-11-16 10:43 | XMS_ITS | Clinical Summary ---
Author Organization [facility] Address [address] [place] [address] Phone Care Team Providers Care Binder And Wrapper Packer Name Role Phone Darrell Sutherland MD Primary Care Provider [phone] Surgical History Surgery Date Site/Laterality Comments US [...] PM EST Appointment [facility] [address] [address] Health Maintenance Due Date Last [...] age to complete this topic Insurance MEDICARE [facility] Care Teams Binder And Wrapper Packer Relationship Specialty Start Date End Date Darrell Sutherland MD [address] [place] [id number] PCP - General Internal Medicine 12/12/23
--- OUTSIDE RECORDS SUMMARY | 2024-11-16 10:43 | XMS_ITS | Encounter Summary ---
Author Organization [facility] Address [address] [address] Phone Care Team Providers Care Casino Floor Walker Name Role Phone Darrell Sutherland MD Primary Care Provider [phone] Darrell Sutherland MD Unavailable [phone] Travis Monge MD Unavailable Melanie Henson RN Unavailable Encounter Details Date Type Department Care Team (Late st Contact Info) Description 06/10/2022 Telephone [facility] PRE/PACU [address] [place] [address] Wanda Trevino, RN [address] [place] [address] [email or web address] Social History Tobacco Use Types Packs/Day [...] (Latest Contact Info) Description 07/12/2024 Procedure Pass [facility], [address] [address] 03/27/2025 1:00 PM EST Office Visit [facility] Internal Medicine 40 [place] [address] Darrell Sutherland MD 40 [place] [address] 07/10/2025 11:10 AM EDT Appointment [facility], Mri - [address] [address] Ciro Kelley MD [address] [place] [address] Avtar [email or web address] 07/10/2025 12:00 PM EDT Appointment [facility] X-Ray - [address] [address] Ciro Kelley MD [address] [place] [address] Avtar [email or web address] 07/16/2025 3:00 PM EDT Telemedicine - audio only [facility] Radiology Cross [facility]al Clinic [address] [place] [address], 3rd Floor, [place] [address] Ciro Kelley MD [address] [place] [address] Avtar [email or web address] documented as of this encounter Visit Diagnoses Not on filedocumented in this encounter Additional Health Concerns Infection Onset Date Last Indicated Resolved Time CoV-Risk 07/13/2023 07/13/2023 07/24/2023 1:22 AM EDT Assessment Noted Time PHQ-2 Depression Total Score: 0 01/26/20 12:55 PM EST documented as of this encounter Care Teams Casino Floor Walker Relationship Specialty Start Date End Date Darrell Sutherland MD [address] [place] [address] [email or web address] PCP - General Internal Medicine 01/11/17 Darrell Sutherland MD 40 [place] [address] [email or web address] Insurance Assigned Provider 05/28/23 Travis Monge MD [address] [place] [address] [place] [address] Pulmonary Disease 06/01/22 Melanie Henson, RN [address] [place] [address] [id number] [email or web address] Department Specialist 09/19/23 10/24/23 documented as of this encounter Additional Source Comments The information contained in this document represents components of the legal health record. It is not the complete legal health record.[facility]
--- OUTSIDE RECORDS SUMMARY | 2024-11-16 10:43 | XMS_ITS | Clinical Summary ---
Author Organization [facility] Address [address] [place] [address] Phone Care Team Providers Care Relief Worker Name Role Phone Darrell Sutherland MD Primary Care Provider Darrell Sutherland MD Unavailable [phone] Travis Monge MD Unavailable Allergies Active [...] other day. Managed by Dr. [place] [facility] Active olmesartan (BENICAR) 20 mg [...] Saw melinda Sevilla/ Adan, 07/26/23 [place] [facility] after abnormal imaging- [...] Description 09/19/2024 11:30 AM EDT Office Visit [facility] Internal Medicine [address] [place] [address] Darrell Sutherland MD Screening mammogram for breast cancer (Primary Dx); Vitamin D deficiency, unspecified; Pure hypercholesterolemia ; Benign essential hypertension; Impaired fasting glucose 09/19/2024 Orders Only [facility] Internal Medicine [address] [facility] [address] ProviderAmalia MD 09/17/2024 Orders Only [facility] Internal [facility] [address] [facility] [address] Provider, MD Amalia 09/07/2024 Documentation [facility] Internal [facility] [address] [facility] [place], [place] [address] Darrell Sutherland MD from Last 3 Months Immunizations Immunization Administration Dates Next Due COVID-19 (Pre-12/13) Pfizer Vaccine, mRNA, PF 04/25/2020,04/04/2020 INFLUENZA, SPLIT VIRUS, TRIVALENT PF 11/12/2015 INFLUENZA, SPLIT VIRUS, TRIV ALENT W/ PRESERVATIVE IM 10/12/2015,11/23/2011 Influenza High-Dose Quadriva lent Preservative Free IM 11/27/2022,12/07/2021,11/24/2020,10/24 Influenza High-Dose Trivalen t Preservative Free IM 11/23/2023,11/06/2018,10/31/2017,12/24,12/11/2013,11/28/2012 Influenza Trivalent Adjuvant ed Preservative free IM 01/27/2017 Influenza, Unspecified Formulation 11/06,11/24/2010,12/10/2009,11/29 Pneumococcal conjugate PCV13 01/07/2015 Pneumococcal polysaccharide PPSV23 [...] (Latest Contact Info) Description 07/12/2024 Procedure Pass [address] [address] 03/27/2025 1:00 PM EST Office Visit [facility] Internal Medicine [address] [place] [address] Darrell Sutherland MD [address] [place] [address] 07/10/2025 11:10 AM EDT Appointment [address] [address] Ciro Kelley MD [address] [place] [address] Avtar [email or web address] 07/10/2025 12:00 PM EDT Appointment [facility] X-Ray - [address] [address] Ciro Kelley MD [address] [place] [address] Avtar [email or web address] 07/16/2025 3:00 PM EDT Telemedicine - audio only [facility] Radiology Cross [facility]al Clinic 70 [facility], 3rd Floor, [place] [address] Ciro Kelley MD [address] [place] [address] Avtar [email or web address] Health Maintenance Due Date Last Done [...] PANEL Routine 08/07/2024 11:15 AM EDT OUTSIDE BONE DENSITY SCREENING Routine 07/14/2017 from Last 3 Months or Most Recently Relevant to Health Maintenance Results * Outside Echo Report Only (09/11/2024 2:15 PM EDT) Historical Provider CV ECHO ORDERABLES Final Result * Outside CT??Chest Report Only (09/11/2024 10:01 AM EDT) Historical Provider IMG CT CHEST Final Res ult * Basic metabolic panel (08/07/2024 11:15 AM EDT) Historical Provider LAB BLOOD ORDERABLES Yuliet l Result * OUTSIDE BONE DENSITY SCREENING (07/14/2017) [facility] BONE DENSITY SCREENING - EXTERNAL 2 yr recall Historical Provider HEALTH MAINTENANCE Final Result from Last 3 Months or Most Recently Relevant to Health Maintenance Insurance MEDICARE PART A & B [employer] MEDEX SUPPLEMENT MEDICARE PART A & B [employer] MEDEX SUPPLEMENT MEDICARE PART A & B [employer] MEDEX SUPPLEMENT MEDICARE PART A & B [employer] MEDEX SUPPLEMENT MEDICARE PART A & B [employer] MEDEX SUPPLEMENT MEDICARE PART A & B [employer] MEDEX SUPPLEMENT MEDICARE PART A & B [employer] MEDEX SUPPLEMENT MEDICARE PART A & B [employer] MEDEX SUPPLEMENT MEDICARE PART A & B [employer] MEDEX SUPPLEMENT Care Teams Relief Worker Relationship Specialty Start Date End Date Darrell Sutherland MD [address] [place] [address] PCP - General Internal Medicine 01/11/17 Darrell Sutherland MD [address] [place] [address] Insurance Assigned Provider 05/28/23 Travis Monge MD [address] [place] [address] [place] [address] Pulmonary Disease 06/01/22 Additional Source Comments The information contained in this document represents components of the legal health record. It is not the complete legal health record.[facility]
--- OUTSIDE RECORDS SUMMARY | 2024-11-16 10:43 | XMS_ITS | Encounter Summary ---
Author Organization [facility] Address [facility] [employer] [address] [address] Phone Care Team Providers Care Physical Therapy Professor Name Role Phone Darrell Sutherland MD Primary Care Provider Darrell Sutherland MD Unavailable [phone] Travis Monge MD Unavailable [phone] Melanie Henson RN Unavailable [phone] Encounter Details Date Type Department Care Team (Late st Contact Info) Description 03/23/2022 Procedure Pass [facility] Ct Scan [address] [address] Social History Tobacco Use Types Packs/Day Years [...] Team (Latest Contact Info) Description 07/12/[address] [address] 03/27/2025 1:00 PM EST Office Visit [facility] Internal Medicine [address] [place] [address] Darrell Sutherland MD [address] [place] [address] 07/10/2025 11:10 AM EDT Appointment [facility], Mri - [address] [address] Ciro Kelley MD [address] [place] [address] Avtar [email or web address] 07/10/2025 12:00 PM EDT Appointment [facility] X-Ray - [address] [address] Ciro Kelley MD [address] [place] [address] Avtar [email or web address] 07/16/2025 3:00 PM EDT Telemedicine - audio only [facility] Radiology Cross Sectional Clinic [address] [facility] [employer] [facility], 3rd Floor, [place] [address] Ciro Kelley MD [address] [place] [address] Avtar [email or web address] documented as of this encounter Visit Diagnoses Not on filedocumented in this encounter Additional Health Concerns Infection Onset Date Last Indicated Resolved Time CoV-Risk 07/13/2023 07/13/2023 07/24/2023 1:22 AM EDT Assessment Noted Time PHQ-2 Depression Total Score: 0 01/26/20 12:55 PM EST documented as of this encounter Care Teams Physical Therapy Professor Relationship Specialty Start Date End Date Darrell Sutherland MD [address] [place] [address] [email or web address] PCP - General Internal Medicine 01/11/17 Darrell Sutherland MD [address] [place] [address] [email or web address] Insurance Assigned Provider 05/28/23 Travis Monge MD [address] [place] [address] [place] [address] Pulmonary Disease 06/01/22 Melanie Henson, RN [address] [place] [address] [phone] [email or web address] iCMP Manager Corporate 09/19/23 10/24/23 documented as of this encounter Additional Source Comments The information contained in this document represents components of the legal health record. It is not the complete legal health record.[facility]
--- OUTSIDE RECORDS SUMMARY | 2024-11-16 10:43 | XMS_ITS | Encounter Summary ---
Author Organization [facility] Address [address] [place] [address] Phone Care Team Providers Care Shaker Tender Name Role Phone Darrell Sutherland MD Primary Care Provider [phone] Darrell Sutherland MD Unavailable [phone] Travis Monge MD Unavailable Melanie Henson RN Unavailable Encounter Details Date Type Department Care Team (Late st Contact Info) Description 06/08/2022 Procedure Pass [facility] Periop [address] [place] [address] Social History Tobacco Use Types Packs/Day Years [...] (Latest Contact Info) Description 07/12/2024 Procedure Pass [facility], [facility] [address] [place] [address] 03/27/2025 1:00 PM EST Office Visit [facility] Internal Medicine [address] [place] [address] Darrell Sutherland MD [address] [place] [address] [email or web address] 07/10/2025 11:10 AM EDT Appointment [facility], Mri - [address] [address] Ciro Kelley MD [address] [place] [address] [email or web address] 07/10/2025 12:00 PM EDT Appointment [facility] X-Ray [address] [address] Ciro Kelley MD [address] [place] [address] Avtar [email or web address] 07/16/2025 3:00 PM EDT Telemedicine - audio only [facility] Radiology [facility] 70 [facility], 3rd Floor, [place] [address] Ciro Kelley MD [address] [place] [address] [email or web address] [email or web address] documented as of this encounter Visit Diagnoses Not on filedocumented in this encounter Additional Health Concerns Infection Onset Date Last Indicated Resolved Time CoV-Risk 07/13/2023 07/13/2023 07/24/2023 1:22 AM EDT Assessment Noted Time PHQ-2 Depression Total Score: 0 01/26/20 12:55 PM EST documented as of this encounter Care Teams Shaker Tender Relationship Specialty Start Date End Date Darrell Sutherland MD [address] [place] [address] PCP - General Internal Medicine 01/11/17 Darrell Sutherland MD [address] [place] [address] [email or web address] Insurance Assigned Provider 05/28/23 Travis Monge MD [address] [place] [address] [place] [address] Pulmonary Disease 06/01/22 Melanie Henson, RN [address] [place] [address] [email or web address] iCMP Wire Spring Relay Adjuster 09/19/23 10/24/23 documented as of this encounter Additional Source Comments The information contained in this document represents components of the legal health record. It is not the complete legal health record.[facility]
--- OUTSIDE RECORDS SUMMARY | 2024-11-16 10:43 | XMS_ITS | Encounter Summary ---
Author Organization [facility] Address [address] [place] [address] Phone Care Team Providers Care Project Controls Scheduler Name Role Phone Darrell Sutherland MD Primary Care Provider Darrell Sutherland MD Unavailable [phone] Travis Monge MD Unavailable Melanie Henson RN Unavailable Encounter Details Date Type Department Care Team (Late st Contact Info) Description 06/08/2022 Procedure Pass [facility] Periop [address] [place] [address] Social History Tobacco Use Types Packs/Day Years [...] (Latest Contact Info) Description 07/12/2024 Procedure Pass [facility], [facility] 30 [place] [address] 03/27/2025 1:00 PM EST Office Visit [facility] Internal Medicine [address] [place] [address] Darrell Sutherland MD [address] [place] [address] [email or web address] 07/10/2025 11:10 AM EDT Appointment [facility], Mri - [address] [address] Ciro Kelley MD [address] [place] [address] [email or web address] 07/10/2025 12:00 PM EDT Appointment [facility] X-Ray [address] [address] Ciro Kelley MD [address] [place] [address] [email or web address] 07/16/2025 3:00 PM EDT Telemedicine - audio only [facility] Radiology [facility] 70 [facility], 3rd Floor, [place] [address] Ciro Kelley MD [address] [place] [address] [email or web address] documented as of this encounter Visit Diagnoses Not on filedocumented in this encounter Additional Health Concerns Infection Onset Date Last Indicated Resolved Time CoV-Risk 07/13/2023 07/13/2023 07/24/2023 1:22 AM EDT Assessment Noted Time PHQ-2 Depression Total Score: 0 01/26/20 12:55 PM EST documented as of this encounter Care Teams Project Controls Scheduler Relationship Specialty Start Date End Date Darrell Sutherland MD [address] [place] [address] [email or web address] PCP - General Internal Medicine 01/11/17 Darrell Sutherland MD [address] [place] [address] [email or web address] Insurance Assigned Provider 05/28/23 Travis Monge MD [address] [place] [address] [place] [address] Pulmonary Disease 06/01/22 Melanie Henson, RN [address] [place] [address] [email or web address] iCMP Staff Reporter 09/19/23 10/24/23 documented as of this encounter Additional Source Comments The information contained in this document represents components of the legal health record. It is not the complete legal health record.[facility]
--- OUTSIDE RECORDS SUMMARY | 2024-11-16 10:43 | XMS_ITS | Encounter Summary ---
Author Organization [facility] Address [address] [address] Phone Care Team Providers Care Paint Sprayer Sandblaster Name Role Phone Darrell Sutherland MD Primary Care Provider Darrell Sutherland MD Unavailable [phone] Travis Monge MD Unavailable Melanie Henson RN Unavailable Encounter Details Date Type Department Care Team (Late st Contact Info) Description 01/18/2023 Procedure Pass [facility], [address] [address] Social History Tobacco Use Types Packs/Day Years [...] Contact Info) Description 07/12/2024 Procedure Pass [address] [address] 03/27/2025 1:00 PM EST Office Visit [facility] Internal Medicine 40 [place] [address] Darrell Sutherland MD 40 [place] [address] 07/10/2025 11:10 AM EDT Appointment [address] [address] Ciro Kelley MD [address] [place] [address] Avtar [email or web address] 07/10/2025 12:00 PM EDT Appointment [facility], X-Ray - [address] [address] Ciro Kelley MD [address] [place] [address] Avtar [email or web address] 07/16/2025 3:00 PM EDT Telemedicine - audio only [facility] Radiology Cross [facility]al Clinic 70 [facility], 3rd Floor, [place] [address] Ciro Kelley MD [address] [place] [address] Avtar [email or web address] documented as of this encounter Visit Diagnoses Not on filedocumented in this encounter Additional Health Concerns Infection Onset Date Last Indicated Resolved Time CoV-Risk 07/13/2023 07/13/2023 07/24/2023 1:22 AM EDT Assessment Noted Time PHQ-9 Depression Total Score: 6 01/28/20 23 12:49 PM EST PHQ-2 Depression Total Score: 4 01/28/20 23 12:49 PM EST documented as of this encounter Care Teams Paint Sprayer Sandblaster Relationship Specialty Start Date End Date Darrell Sutherland MD [address] [place] [address] [email or web address] PCP - General Internal Medicine 01/11/17 Darrell Sutherland MD [address] [place] [address] Insurance Assigned Provider 05/28/23 Travis Monge MD [address] [place] [address] [place] [address] Pulmonary Disease 06/01/22 Melanie Henson, RN [address] [place] [phone] [email or web address] iCMP Driver Salesman 09/19/23 10/24/23 documented as of this encounter Additional Source Comments The information contained in this document represents components of the legal health record. It is not the complete legal health record.[facility]
== END 2024-11-16 10:18 | disposition home or self-care (01) ==
LOC: HO.ACS 09:42
PROVIDERS: PCP Internal Medicine; Visit Provider Internal Medicine Medical Oncology
DX: Z79.01 Long term (current) use of anticoagulants (principal)

== ENCOUNTER → 2024-11-16 09:42 | Outpatient (BNVA) | payer MEDICARE, SELFPAY | PROVIDERS: PCP Internal Medicine; Visit Provider Internal Medicine Medical Oncology | DX: Z51.81 Encounter for therapeutic drug level monitoring (principal); Z79.01 Long term (current) use of anticoagulants | CPT/HCPCS: 85610; 99211 ==

== ENCOUNTER 2024-12-06 09:43 | Outpatient (AMB) | payer MEDICARE, SELFPAY ==
[2024-12-06 10:04] LABS: Prothrombin Time Whole Bld POC 25.1 sec (11.1-13.5); ~PT, ~INR - Anti Coag Clinic 2.1 (0.9-1.1)
--- NOTE | 2024-12-06 10:09 | MHC.OFFVISCO ---
Intake Intake Visit Reasons: Anticoagulation Allergies amlodipine Allergy (Intermediate, Verified 12/06/24 09:58) Difficulty Breathing latex (LATEX) Allergy (Intermediate, Verified 12/06/24 09:58) RASH seasonal Allergy (Intermediate, Uncoded 12/06/24 09:58) Sneezing altace Adverse Reaction (Mild, Uncoded 12/06/24 09:58) Cough Medication List - Last Reconciled 12/06/24 by Tricia Kilgore RN atenolol 50 mg PO BID cholecalciferol (vitamin D3) 25 mcg PO DAILY digoxin 125 mcg PO DAILY furosemide (Lasix) 20 mg PO DAILY PRN olmesartan 20 mg PO DAILY Oxygen Home Use As directed warfarin 5 mg See Protocol PO DAILY Nursing Note INR: 2.1 in therapeutic range 2-3 Medications and supplements reviewed No changes in health, diet, medications, or supplements, Denies any signs and symptoms of bleeding or bruising or clotting. 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 Illness/Depression: No Coding Level of Care Code Est Patient Level 1 Diagnoses Current use of anticoagulant therapy Z79.01 Results AMB INR Fingerstick AMB INR Fingerstick 2.1 Last Edit by Tricia Kilgore RN on 12/06/24 10:04 Assessment & Plan Assessment & Plan (1) Current use of anticoagulant therapy: Code(s): Z79.01 - terminal computer operator (current) use of anticoagulants Category: Medical
--- OUTSIDE RECORDS SUMMARY | 2024-12-06 11:16 | XMS_ITS | Encounter Summary ---
Author Organization [facility] Address [address] [place] [address] Phone Care Team Providers Care Commercial Attorney Name Role Phone Darrell Sutherland MD Primary Care Provider Darrell Sutherland MD Unavailable [phone] Travis Monge MD Unavailable Melanie Henson RN Unavailable [phone] Encounter Details Date Type Department Care Team (Late st Contact Info) Description 06/15/[address] [address] Social History Tobacco Use Types Packs/Day Years [...] Team (Latest Contact Info) Description 07/12/[address] [address] 03/27/2025 1:00 PM EST Office Visit [facility] Internal Medicine 40 [place] [address] Darrell Sutherland MD 40 [place] [address] 07/10/2025 11:10 AM EDT Appointment [address] [address] Ciro Kelley MD [address] [place] [address] Avtar [email or web address] 07/10/2025 12:00 PM EDT Appointment [facility] X-Ray [address] [address] Ciro Kelley MD [address] [place] [address] Avtar [email or web address] 07/16/2025 3:00 PM EDT Telemedicine - audio only [facility] Radiology Cross Sectional Clinic 70 [facility], 3rd Floor, [place] [address] Ciro Kelley MD [address] [place] [address] Avtar [email or web address] documented as of this encounter Visit Diagnoses Not on filedocumented in this encounter Additional Health Concerns Infection Onset Date Last Indicated Resolved Time CoV-Risk 07/13/2023 07/13/2023 07/24/2023 1:22 AM EDT Assessment Noted Time PHQ-2 Depression Total Score: 0 01/26/20 12:55 PM EST documented as of this encounter Care Teams Commercial Attorney Relationship Specialty Start Date End Date Darrell Sutherland MD [address] [place] [address] [email or web address] PCP - General Internal Medicine 01/11/17 Darrell Sutherland MD [address] [place] [address] Insurance Assigned Provider 05/28/23 Travis Monge MD [address] [place] [address] [place] [address] Pulmonary Disease 06/01/22 Melanie Henson, RN [address] [place] [phone] [email or web address] PHCM Scale Mechanic 09/19/23 10/24/23 documented as of this encounter Additional Source Comments The information contained in this document represents components of the legal health record. It is not the complete legal health record.[facility]
--- OUTSIDE RECORDS SUMMARY | 2024-12-06 11:16 | XMS_ITS | Encounter Summary ---
Author Organization [facility] Address [address] [place] [address] Phone Care Team Providers Care Manager Msw Name Role Phone Darrell Sutherland MD Unavailable [phone] Radha Giron [employer]BON CAPTURE POWER PLANT MANAGER Unavailable [phone] Kianna Abreu [employer] CAPTURE POWER PLANT MANAGER Unavailable [phone] Ky Barone EXPELLER WORKER Unavailable Darrell Sutherland MD Primary Care Provider Darrell Sutherland MD Unavailable Travis Monge MD Unavailable Melanie Henson RN Unavailable Encounter Details Date Type Department Care Team (Latest Contact Info) Description 06/01/2017 Transcribe Orders [facility] Laboratory [address] [place], [place] [phone] Darrell Sutherland MD [address] [place], [place] [phone] [email or web address] Pure hypercholesterolemia (Primary Dx); Essential [...] Contact Info) Description 07/12/2024 Procedure Pass [address] [address] 03/27/2025 1:00 PM EST Office Visit [facility] Internal Medicine 40 [place] [address] Darrell Sutherland MD 40 [place] [address] 07/10/2025 11:10 AM EDT Appointment [address] [address] Ciro Kelley MD [address] [place] [address] Avtar [email or web address] 07/10/2025 12:00 PM EDT Appointment [facility] X-Ray - [address] [address] Ciro Kelley MD [address] [place] [address] Avtar [email or web address] 07/16/2025 3:00 PM EDT Telemedicine - audio only [facility] Radiology Cross Sectional Clinic 70 [facility], 3rd Floor, [place] [address] Ciro Kelley MD [address] [place] [address] Avtar [email or web address] documented as of this encounter Results * (ABNORMAL) 25-OH vitamin D (06/01/2017 8:19 AM EDT) 25 OH VIT D (TOTAL) 24(L) 30 - 1,000 ng/mL [facility] Blood 06/01/2017 8:19 AM EDT 06/01/2017 8:23 AM EDT us Darrell Sutherland MD LAB BLOOD ORDERABLES Final Re sult [address] [address] * Magnesium (06/01/2017 8:19 AM EDT) [facility] MAGNESIUM 2.1 1.6 - 2.6 mg/dL [facility] Blood 06/01/2017 8:19 AM EDT 06/01/2017 8:23 AM EDT us Darrell Sutherland MD LAB BLOOD ORDERABLES Final Re sult [address] [address] * Comprehensive metabolic panel (06/01/2017 8:19 AM EDT) Pathologist [facility] SODIUM 141 133 - 146 mmol/L [facility] POTASSIUM 3.8 3.3 - 5.1 mmol/L [facility] CHLORIDE 101 96 - 108 mmol/L [facility] CO2 27 21 - 35 mmol/L [facility] BUN 18 6 - 19 mg/dL [facility] CREATININE 0.60 0.5 - 1.5 mg/dL [facility] GLUCOSE 92 70 - 99 mg/dL [facility] ALBUMIN 4.1 3.9 - 4.8 g/dL [facility] TOTAL PROTEIN 7.2 6.5 - 8.0 g/dL [facility] CALCIUM 9.3 8.4 - 10.3 mg/dL [facility] ALKALINE PHOSPHATASE 71 39 - 117 U/L [facility] TOTAL BILIRUBIN 0.4 0.0 - 1.2 mg/dL [facility] AST 21 0 - 37 U/L [facility] ALT 20 0 - 40 U/L [facility] GLOBULIN 3.1 1 - 4.8 g/dL [facility] EGFR 90 >59 mL/min/1.7 3m2 [facility] Comment:If patient is black, multiply result by 1.159. The eGFR calculation has changed from the MDRD equation to the CKD-EPI equation as of April 26, 2017. ANION GAP 17 10 - 20 mmol/L [facility] Blood 06/01/2017 8:19 AM EDT 06/01/2017 8:23 AM EDT us Darrell Sutherland MD LAB BLOOD ORDERABLES Final Re sult Performing Organization Address [facility] Co de Phone Number [address] [address] * TSH (06/01/2017 8:19 AM EDT) TSH 1.86 0.27 - 4.20 uIU/mL [facility] Blood 06/01/2017 8:19 AM EDT 06/01/2017 8:23 AM EDT us Drarell Sutherland MD LAB BLOOD ORDERABLES Final Re sult Performing Organization Address [facility] Co de Phone Number [address] [address] * Lipid panel (06/01/2017 8:19 AM EDT) HDL 46 mg/dL [facility] Comment: Interpretation: Risk Level Females Decreased >55mg/dL Average 50-55 mg/dL Increased <50 mg/dL CHOLESTEROL 191 0 - 240 mg/dL [facility] TRIGLYCERIDES 153 30 - 160 mg/dL [facility] LDL 114 50 - 129 mg/dL [facility] Comment: LDL levels in terms of risk for coronary heart disease: <100 mg/dL: Optimal 100-129 mg/dL: Near or above optimal 130-159 mg/dL: Borderline high 160-189 mg/dL: High >190 mg/dL: Very High CARDIAC RISK RATIO 4.2 3.3 - 4.4 C [facility] Blood 06/01/2017 8:19 AM EDT 06/01/2017 8:23 AM EDT us Darrell Sutherland MD LAB BLOOD ORDERABLES Final Re sult Performing Organization Address [facility]/ZIP Co de Phone Number [address] [address] * (ABNORMAL) CBC (06/01/2017 8:19 AM EDT) WBC 6.60 3.40 - 11.20 K/uL [facility] RBC 4.84(H) 3.80 - 4.80 M/uL [facility] HGB 13.8 12.0 - 15.0 g/dL [facility] HCT 42.8 36.0 - 46.0 % [facility] PLT 226 130 - 400 K/uL [facility] MCV 88.4 79.0 - 98.0 fL [facility] MCH 28.5 27.0 - 34.8 pg [facility] MCHC 32.2 31.5 - 36.0 g/dL [facility] RDW 14.2 10.8 - 14.6 % [facility] MPV 10.0 9.4 - 12.4 fl [facility] NRBC 0.00 /100 WBCs [facility] ABSOLUTE NRBC 0.00 K/uL [facility] Blood 06/01/2017 8:19 AM EDT 06/01/2017 8:23 AM EDT us Darrell Sutherland MD LAB BLOOD ORDERABLES Final Re sult Performing Organization Address City/[facility]/ZIP Co de Phone Number [address] [address] documented in this encounter Visit Diagnoses Diagnosis Pure hypercholesterolemia- Primary Essential hypertension, benign Vitamin D deficiency documented in this encounter Additional Health Concerns Infection Onset Date Last Indicated Resolved Time CoV-Risk 07/13/2023 07/13/2023 07/24/2023 1:22 AM EDT Assessment Noted Time PHQ-2 Depression Total Score: 0 04/30/19 18 10:53 AM EST documented as of this encounter Care Teams Manager Msw Relationship Specialty Start Date End Date Darrell Sutherland MD [address] [place] [address] PCP - General Internal Medicine 01/11/17 Darrell Sutherland MD [address] [place] [address] Historical LMR Provider 12/11/16 07/31/20 Radha Giron, [employer] POWER PLANT MANAGER [address] [place] [address] [address] [place] [address] Historical LMR Provider 12/11/16 Kianna Abreu NP [address] [place] [address] 6 [place] [address] Historical LMR Provider 12/11/16 07/31/20 Ky Barone CNP [address] [facility] [place] [address] Historical LMR Provider 12/11/1607/31 Darrell Sutherland MD [address] [place] [address] Insurance Assigned Provider 05/28/23 Travis Monge MD [address] [place] [address] [place] [address] Pulmonary Disease 06/01/22 Melanie Henson, RN [address] [place] [address] [email or web address] [facility] Cake Icer 09/19/23 10/24/23 documented as of this encounter Additional Source Comments The information contained in this document represents components of the legal health record. It is not the complete legal health record.[facility]
--- OUTSIDE RECORDS SUMMARY | 2024-12-06 11:16 | XMS_ITS | Patient Health Record ---
Author Organization [facility] Address [address] [place] [address] Care Team Providers Care Obiee Consultant Name Role Phone Darrell Sutherland MD Primary Care Provider Jay Talbot Unavailable [phone] Allergies No Known Allergies Reason For Referral No Information Medications Medication SIG (Take, Route, Frequency, Duration) Notes Start Date End Date Status Digoxin 250 MCG Oral; Duration: 30 Active Losartan Potassium 50 MG Oral; Duration: 30 Active Atenolol 50 MG 1 tablet Orally Once a day Active Lovenox Active Vitamin D Active Problems Problem Type SNOMED Code ICD Code Onset Dates Problem Status W/U Status Risk Notes Problem Diverticular disease of colon (562994199) Diverticulosis of large intestine without perforation or abscess without bleeding (K57.30) Active confirmed Problem Gastrointestinal hemorrhage (88012852) Lower GI bleed (K92.2) Active confirmed Plan Of Treatment Future Test Test Name Order Date COLONOSCOPY 02/27/2013 COLONOSCOPY 05/12/2023 Insurance Providers Payer Name Payer Address Payer Phone Subscriber Number Group Number Insured Name Patient Relationship to Insured Coverage Start Date Coverage End Date MEDICARE OF [place] [address] [place] [address] [id number] ROLAN GEORGE Self - patient is the insured [employer] ATTN CLAIMS [address] [place] [address] [id number] ROLAN GEORGE Self - patient is the insured Medical (General) History Medical History History ICD Code Choledocholithiasis--removed via ERCP in 02/2010 prior to Lap [facility] Hypertension Denies MT,DM,CVA,renal disease AFIB - Dr. Ryan--Unsuccessful cardiover shanthi 02/2023 Interstitiail lung disease-Dr. 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 Negative colonoscopy in 06/2013 Lower GI bleed 05/04/2023 Surgical History Surgery Date(Month/Year) Knee surgery Cholecystectomy 2010
--- OUTSIDE RECORDS SUMMARY | 2024-12-06 11:16 | XMS_ITS | Encounter Summary ---
Author Organization [facility] Address [address] [employer] [address] [address] Phone Care Team Providers Care Patient Relations Liaison Name Role Phone Darrell Sutherland MD Primary Care Provider [phone] Darrell Sutherland MD Unavailable [phone] Travis Monge MD Unavailable Melanie Henson RN Unavailable [phone] Encounter Details Date Type Department Care Team (Late st Contact Info) Description 07/20/2022 Procedure Pass [facility], [address] [address] Social History Tobacco Use Types Packs/Day Years [...] Contact Info) Description 07/12/2024 Procedure Pass [address] [address] 03/27/2025 1:00 PM EST Office Visit [facility] Internal Medicine [address] [place] [address] Darrell Sutherland MD [address] [place] [address] 07/10/2025 11:10 AM EDT Appointment [address] [address] Ciro Kelley MD [address] [place] [address] Avtar [email or web address] 07/10/2025 12:00 PM EDT Appointment [facility], X-Ray - [address] [address] Ciro Kelley MD [address] [place] [address] Avtar [email or web address] 07/16/2025 3:00 PM EDT Telemedicine - audio only [facility] Radiology [facility] 70 [facility], 3rd Floor, [place] [address] Ciro Kelley MD [address] [place] [address] Avtar [email or web address] documented as of this encounter Visit Diagnoses Not on filedocumented in this encounter Additional Health Concerns Infection Onset Date Last Indicated Resolved Time CoV-Risk 07/13/2023 07/13/2023 07/24/2023 1:22 AM EDT Assessment Noted Time PHQ-2 Depression Total Score: 0 01/26/20 12:55 PM EST documented as of this encounter Care Teams Patient Relations Liaison Relationship Specialty Start Date End Date Darrell Sutherland MD [address] [place] [address] [email or web address] PCP - General Internal Medicine 01/11/17 Darrell Sutherland MD [address] [place] [address] Insurance Assigned Provider 05/28/23 Travis Monge MD [address] [place] [address] [place] [address] Pulmonary Disease 06/01/22 Melanie Henson, RN [address] [place] [address] [email or web address] PHCM Forest Aide 09/19/23 10/24/23 documented as of this encounter Additional Source Comments The information contained in this document represents components of the legal health record. It is not the complete legal health record.[facility]
--- OUTSIDE RECORDS SUMMARY | 2024-12-06 11:16 | XMS_ITS | Patient Health Record ---
Author Organization [facility] Address [address] [place] [address] Care Team Providers Care Commercial Interior Designer Name Role Phone Darrell Sutherland MD Primary Care Provider Dylon Morton Unavailable [phone] Allergies Allergen (clinical drug ingredient) Drug/Non Drug [...] Active hydroCHLOROthiazide 25 MG 1 tablet in morning Orally Once a day Active Social [...] Status Risk Notes Problem Acquired hallux valgus (26761406) Hallux valgus (acquired), left foot (M20.12) Active confirmed Problem Acquired hallux valgus (08338456) Hallux valgus (acquired), right foot (M20.11) Active confirmed Problem Acquired hammer toe of right foot (7952032964631 105) Other hammer toe(s) (acquired), right foot (M20.41) Active confirmed Problem Acquired hammer toe of left foot (8799841132263 103) Other hammer toe(s) (acquired), left foot (M20.42) Active confirmed Plan Of Treatment Pending Test Test Name Order Date X ray : Foot, right 3V 06/05/2020 Insurance Providers Payer Name Payer Address Payer Phone Subscriber Number Group Number Insured Name Patient Relationship to Insured Coverage Start Date Coverage End Date Medicare National Govt Svcs Inc [address] [place] [address] [id number] Sudha Meek Self - patient is the insured [employer] [address] [place] [address] [id number] Sudha Meek Self - patient is the insured Medical (General) History Medical History History ICD Code High blood pressure Surgical History Surgery Date(Month/Year) right knee replacement 10/2016
--- OUTSIDE RECORDS SUMMARY | 2024-12-06 11:16 | XMS_ITS | Clinical Summary ---
Author Organization [facility] Address [address] [place] [address] Phone Care Team Providers Care Research Pharmacist Name Role Phone Darrell Sutherland MD Primary Care Provider [phone] Surgical History Surgery Date Site/Laterality Comments US [...] PM EST Appointment [facility] [address] [address] Health Maintenance Due Date Last [...] [facility] Care Teams Research Pharmacist Relationship Specialty Start Date End Date Darrell Sutherland MD [address] [place] [address] PCP - General Internal Medicine 12/12/23
--- OUTSIDE RECORDS SUMMARY | 2024-12-06 11:16 | XMS_ITS | Encounter Summary ---
Author Organization [facility] Address [address] [employer] [facility] [address] [place] [address] Phone Care Team Providers Care Gas Main Fitter Name Role Phone Darrell Sutherland MD Primary Care Provider Darrell Sutherland MD Unavailable [phone] Travis Monge MD Unavailable [phone] Melanie Henson RN Unavailable [phone] Encounter Details Date Type Department Care Team (Late st Contact Info) Description 07/26/2023 Procedure Pass [facility], [address] [address] Social History Tobacco Use Types Packs/Day Years [...] Contact Info) Description 07/12/2024 Procedure Pass [address] [address] 03/27/2025 1:00 PM EST Office Visit [facility] Internal Medicine [address] [place] [address] Darrell Sutherland MD 40 [place] [address] 07/10/2025 11:10 AM EDT Appointment [address] [address] Ciro Kelley MD [address] [place] [address] Avtar [email or web address] 07/10/2025 12:00 PM EDT Appointment [facility], X-Ray - [address] [address] Ciro Kelley MD [address] [place] [address] Avtar [email or web address] 07/16/2025 3:00 PM EDT Telemedicine - audio only [facility] Radiology Cross Sectional Clinic 70 [facility], 3rd Floor, [place] [address] Ciro Kelley MD [address] [place] [address] Avtar [email or web address] documented as of this encounter Visit Diagnoses Not on filedocumented in this encounter Additional Health Concerns Assessment Noted Time PHQ-9 Depression Total Score: 6 01/28/20 23 12:49 PM EST PHQ-2 Depression Total Score: 0 02/23/19 25 12:42 PM EST documented as of this encounter Care Teams Gas Main Fitter Relationship Specialty Start Date End Date Darrell Sutherland MD 40 [place] [address] PCP - General Internal Medicine 01/11/17 Darrell Sutherland MD 40 [place] [address] Insurance Assigned Provider 05/28/23 Travis Monge MD [address] [place] [address] [place] [address] Pulmonary Disease 06/01/22 Melanie Henson, RN [address] [place] [phone] PHCM Leach Cell Operator 09/19/23 10/24/23 documented as of this encounter Additional Source Comments The information contained in this document represents components of the legal health record. It is not the complete legal health record.[facility]
--- OUTSIDE RECORDS SUMMARY | 2024-12-06 11:16 | XMS_ITS | Clinical Summary ---
Author Organization [facility] Address [address] [address] Phone Care Team Providers Care Windows Server Engineer Name Role Phone Darrell Sutherland MD Primary Care Provider Darrell Sutherland MD Unavailable [phone] Travis Monge MD Unavailable Allergies Active [...] started taking 125 mcg around 12/2022 Active OXYGEN-AIR DELIVERY SYSTEMS MISC 2 L by Miscellaneous route nightly at bedtime. And with exertion as needed Active atenolol (TENORMIN) 50 mg tabletIndication s:Essential hypertension Take 1 tablet (50 mg total) by mouth 2 (two) times a day. 180 tablet 3 02/10/20 24 Active furosemide (LASIX) 20 MG tablet Take 20 mg by mouth every other day. Managed by Dr. [facility] Active olmesartan (BENICAR) 20 mg tablet Take 20 mg by mouth every morning. 08/29/19 Active hydrocortisone 2.5 % cream Apply 1 Application topically as needed (for previous incision site on lower abdomen). 09/14/19 25 Active warfarin (COUMADIN) 5 MG tabletIndication s:Persistent atrial fibrillation,Kranthi ateral pulmonary embolism Take 1-1.5 tablets (5-7.5 mg total) by mouth as directed. Alternating 1 tablet qod and 1.5 tablets qod 135 tablet 3 11/29/19 25 Active warfarin (COUMADIN) 5 MG tabletIndication s:Persistent atrial fibrillation,Kranthi ateral pulmonary embolism Take 1-1.5 tablets (5-7.5 mg total) by mouth as directed. Alternating 1 tablet qod and 1.5 tablets qod 135 tablet 3 09/15/19 025 Discontin ued(Reord er) Active Problems Problem Noted Date Diagnosed Date [...] (interstitial lung disease) 04/01/2022 Overview (11/07/2023): [place] [facility]- plan [...] be identified, will ref her back to pulm for more testing Assessment & Plan (04/01/2022 [...] Encounters Date Type Department Care Team Description 11/27/2024 Refill [facility] Internal Medicine [address] [place] [address] Darrell Sutherland MD Medication Refill 09/19/2024 11:30 AM EDT Office Visit [facility] Internal Medicine [address] [place] [address] Darrell Sutherland MD Screening mammogram for breast cancer (Primary Dx); Vitamin D deficiency, unspecified; Pure hypercholesterolemia ; Benign essential hypertension; Impaired fasting glucose 09/19/2024 Orders Only [facility] Internal Medicine [address] [place] [address] ProviderAmalia MD 09/17/2024 Orders Only [facility] Internal Medicine [address] [place] [address] Amalia Gilbert MD 09/07/2024 Documentation [facility] Internal Medicine [address] [place] [address] Darrell Sutherland MD from Last 3 Months [...] 70.5 kg (155 lb 6.4 oz) 09/20/19 25 11:24 AM EDT Height 154.9 cm (5' 0.98 ) 09/19/2024 1 1:24 AM EDT Body Mass Index 29.38 09/19/2024 11:24 AM EDT Plan of Treatment Upcoming Encounters Date Type Department Care Team (Latest Contact Info) Description 07/12/2024 Procedure Pass [address] [address] 03/27/2025 1:00 PM EST Office Visit [facility] Internal Medicine [address] [place] [address] Darrell Sutherland MD [address] [place] [address] 07/10/2025 11:10 AM EDT Appointment [address] [address] Ciro Kelley MD [address] [place] [address] Avtar [email or web address] 07/10/2025 12:00 PM EDT Appointment [facility]-[address] [address] Ciro Kelley MD [address] [place] [address] Avtar [email or web address] 07/16/2025 3:00 PM EDT Telemedicine - audio only [facility] Radiology Cross [facility]al Clinic 70 [facility], 3rd Floor, [place] [address] Ciro Kelley MD [address] [place] [address] Avtar [email or web address] Health Maintenance Due Date Last Done [...] CT??Chest Report Only (09/11/2024 10:01 AM EDT) [facility] Provider IMG CT CHEST Final Res ult * Basic metabolic panel (08/07/2024 11:15 AM EDT) Historical Provider LAB BLOOD ORDERABLES Yuliet l Result * OUTSIDE BONE DENSITY SCREENING (07/14/2017) [facility] Signature BONE DENSITY SCREENING - EXTERNAL 2 yr recall Historical Provider HEALTH MAINTENANCE Final Result from Last 3 Months or Most Recently Relevant to Health Maintenance Insurance MEDICARE PART A & B [employer] [employer] SUPPLEMENT MEDICARE PART A & B [employer] MEDEX SUPPLEMENT MEDICARE PART A & B [employer] MEDEX SUPPLEMENT MEDICARE PART A & B [employer] MEDEX SUPPLEMENT MEDICARE PART A & B [employer] MEDEX SUPPLEMENT MEDICARE PART A & B [employer] MEDEX SUPPLEMENT MEDICARE PART A & B [employer] MEDEX SUPPLEMENT MEDICARE PART A & B [employer] MEDEX SUPPLEMENT MEDICARE PART A & B [employer] MEDEX SUPPLEMENT Care Teams Windows Server Engineer Relationship Specialty Start Date End Date Darrell Sutherland MD [address] [place] [address] [email or web address] PCP - General Internal Medicine 01/11/17 Darrell Sutherland MD [address] [place] [address] [email or web address] Insurance Assigned Provider 05/28/23 Travis Monge MD [address] [place] [address] [place] [address] Pulmonary Disease 06/01/22 Additional Source Comments The information contained in this document represents components of the legal health record. It is not the complete legal health record.[facility]
--- OUTSIDE RECORDS SUMMARY | 2024-12-06 11:16 | XMS_ITS | Encounter Summary ---
Author Organization [facility] Address [facility] [employer] [address] [address] Phone Care Team Providers Care Account Underwriter Name Role Phone Darrell Sutherland MD Primary Care Provider Darrell Sutherland MD Unavailable [phone] Travis Monge MD Unavailable Melanie Henson RN Unavailable Encounter Details Date Type Department Care Team (Late st Contact Info) Description 03/23/2022 Procedure Pass [facility] Ct Scan [address] [address] Social History Tobacco Use Types Packs/Day Years [...] Team (Latest Contact Info) Description 07/12/[address] [address] 03/27/2025 1:00 PM EST Office Visit [facility] Internal Medicine [address] [place] [address] Darrell Sutherland MD [address] [place] [address] 07/10/2025 11:10 AM EDT Appointment [facility], Mri - [address] [address] Ciro Kelley MD [address] [place] [address] Avtar [email or web address] 07/10/2025 12:00 PM EDT Appointment [facility] X-Ray - [address] [address] Ciro Kelley MD [address] [place] [address] Avtar [email or web address] 07/16/2025 3:00 PM EDT Telemedicine - audio only [facility] Radiology Cross Sectional Clinic 70 [facility], 3rd Floor, [place] [address] Ciro Kelley MD [address] [place] [address] Avtar [email or web address] documented as of this encounter Visit Diagnoses Not on filedocumented in this encounter Additional Health Concerns Infection Onset Date Last Indicated Resolved Time CoV-Risk 07/13/2023 07/13/2023 07/24/2023 1:22 AM EDT Assessment Noted Time PHQ-2 Depression Total Score: 0 01/26/20 12:55 PM EST documented as of this encounter Care Teams Account Underwriter Relationship Specialty Start Date End Date Darrell Sutherland MD [address] [place] [address] [email or web address] PCP - General Internal Medicine 01/11/17 Darrell Sutherland MD [address] [place] [address] Insurance Assigned Provider 05/28/23 Travis Monge MD [address] [place] [address] [place] [address] Pulmonary Disease 06/01/22 Melanie Henson, RN [address] [place] [address] [email or web address] PHCM Driver Supervisor 09/19/23 10/24/23 documented as of this encounter Additional Source Comments The information contained in this document represents components of the legal health record. It is not the complete legal health record.[facility]
--- OUTSIDE RECORDS SUMMARY | 2024-12-06 11:16 | XMS_ITS | Encounter Summary ---
Author Organization [facility] Address [address] [place] [address] Phone Care Team Providers Care Lan Support Specialist Name Role Phone Darrell Sutherland MD Primary Care Provider [phone] Darrell Sutherland MD Unavailable [phone] Travis Monge MD Unavailable [phone] Melanie Henson RN Unavailable Encounter Details Date Type Department Care Team (Late st Contact Info) Description 06/08/2022 Procedure Pass [facility] Periop [address] [place] [address] Social History Tobacco Use Types Packs/Day Years [...] (Latest Contact Info) Description 07/12/2024 Procedure Pass [facility] [address] [place] [address] 03/27/2025 1:00 PM EST Office Visit [facility] Internal Medicine [address] [place] [address] Darrell Sutherland MD [address] [place] [address] [email or web address] 07/10/2025 11:10 AM EDT Appointment [facility], Mri - [address] [address] Ciro Kelley MD [address] [place] [address] Avtar [email or web address] 07/10/2025 12:00 PM EDT Appointment [facility] X-Ray [address] [address] Ciro Kelley MD [address] [place] [address] Avtar [email or web address] 07/16/2025 3:00 PM EDT Telemedicine - audio only [facility] Radiology Cross Sectional Clinic 70 [facility], 3rd Floor, [place] [address] Ciro Kelley MD [address] [place] [address] Avtar [email or web address] documented as of this encounter Visit Diagnoses Not on filedocumented in this encounter Additional Health Concerns Infection Onset Date Last Indicated Resolved Time CoV-Risk 07/13/2023 07/13/2023 07/24/2023 1:22 AM EDT Assessment Noted Time PHQ-2 Depression Total Score: 0 01/26/20 12:55 PM EST documented as of this encounter Care Teams Lan Support Specialist Relationship Specialty Start Date End Date Darrell Sutherland MD [address] [place] [address] [email or web address] PCP - General Internal Medicine 01/11/17 Darrell Sutherland MD [address] [place] [address] [email or web address] Insurance Assigned Provider 05/28/23 Travis Monge MD [address] [place] [address] [place] [address] Pulmonary Disease 06/01/22 Melanie Henson, RN [address] [place] [address] [email or web address] PHCM Retail Inventory Control Clerk 09/19/23 10/24/23 documented as of this encounter Additional Source Comments The information contained in this document represents components of the legal health record. It is not the complete legal health record.[facility]
--- OUTSIDE RECORDS SUMMARY | 2024-12-06 11:16 | XMS_ITS | Encounter Summary ---
Author Organization [facility] Address [address] [place] [address] Phone Care Team Providers Care Spring Assembler Supervisor Name Role Phone Darrell Sutherland MD Primary Care Provider Darrell Sutherland MD Unavailable [phone] Travis Monge MD Unavailable Melanie Henson RN Unavailable Encounter Details Date Type Department Care Team (Late st Contact Info) Description 06/08/2022 Procedure Pass [facility] Periop [address] [place] [address] Social History Tobacco Use Types Packs/Day Years [...] (Latest Contact Info) Description 07/12/2024 Procedure Pass [facility], [facility] [address] [place] [address] 03/27/2025 1:00 PM EST Office Visit [facility] Internal Medicine [address] [place] [address] Darrell Sutherland MD [address] [place] [address] [email or web address] 07/10/2025 11:10 AM EDT Appointment [facility], Mri - [address] [address] Ciro Kelley MD [address] [place] [address] Avtar [email or web address] 07/10/2025 12:00 PM EDT Appointment [facility] X-Ray [address] [address] Ciro Kelley MD [address] [place] [address] Avtar [email or web address] 07/16/2025 3:00 PM EDT Telemedicine - audio only [facility] Radiology Cross Sectional Clinic 70 [facility], 3rd Floor, [place] [address] Ciro Kelley MD [address] [place] [address] Avtar [email or web address] documented as of this encounter Visit Diagnoses Not on filedocumented in this encounter Additional Health Concerns Infection Onset Date Last Indicated Resolved Time CoV-Risk 07/13/2023 07/13/2023 07/24/2023 1:22 AM EDT Assessment Noted Time PHQ-2 Depression Total Score: 0 01/26/20 12:55 PM EST documented as of this encounter Care Teams Spring Assembler Supervisor Relationship Specialty Start Date End Date Darrell Sutherland MD [address] [place] [address] PCP - General Internal Medicine 01/11/17 Darrell Sutherland MD [address] [place] [address] [email or web address] Insurance Assigned Provider 05/28/23 Travis Monge MD [address] [place] [address] [place] [address] Pulmonary Disease 06/01/22 Melanie Henson, RN [address] [place] [address] [email or web address] PHCM Landscape Gardener 09/19/23 10/24/23 documented as of this encounter Additional Source Comments The information contained in this document represents components of the legal health record. It is not the complete legal health record.[facility]
--- OUTSIDE RECORDS SUMMARY | 2024-12-06 11:16 | XMS_ITS | Encounter Summary ---
Author Organization [facility] Address [address] [address] Phone Care Team Providers Care Tool Sharpener Name Role Phone Darrell Sutherland MD Primary Care Provider [phone] Darrell Sutherland MD Unavailable [phone] Travis Monge MD Unavailable Melanie Henson RN Unavailable [phone] Encounter Details Date Type Department Care Team (Late st Contact Info) Description 06/10/2022 Telephone [facility] PRE/PACU [address] [place] [address] Wanda Trevino, RN [address] [place] [address] [email or web address] Social History Tobacco Use Types [...] Contact Info) Description 07/12/2024 Procedure Pass [facility], [address] [address] 03/27/2025 1:00 PM EST Office Visit [facility] Medical [facility] Internal Medicine [address] [place] [address] Darrell Sutherland MD 40 [place] [address] 07/10/2025 11:10 AM EDT Appointment [facility], Mri - [address] [address] Ciro Kelley MD [address] [place] [address] Avtar [email or web address] 07/10/2025 12:00 PM EDT Appointment [facility] X-Ray - [address] [address] Ciro Kelley MD [address] [place] [address] Avtar [email or web address] 07/16/2025 3:00 PM EDT Telemedicine - audio only [facility] Radiology [facility] [address] [place] [address], 3rd Floor, [place] [address] Ciro Kelley MD [address] [place] [address] Avtar [email or web address] documented as of this encounter Visit Diagnoses Not on filedocumented in this encounter Additional Health Concerns Infection Onset Date Last Indicated Resolved Time CoV-Risk 07/13/2023 07/13/2023 07/24/2023 1:22 AM EDT Assessment Noted Time PHQ-2 Depression Total Score: 0 01/26/20 12:55 PM EST documented as of this encounter Care Teams Tool Sharpener Relationship Specialty Start Date End Date Darrell Sutherland MD [address] [place] [address] [email or web address] PCP - General Internal Medicine 01/11/17 Darrell Sutherland MD [address] [place] [address] [email or web address] Insurance Assigned Provider 05/28/23 Travis Monge MD [address] [place] [address] [place] [address] Pulmonary Disease 06/01/22 Melanie Henson, RN [address] [place] [address] [phone] [email or web address] Insurance Writer 09/19/23 10/24/23 documented as of this encounter Additional Source Comments The information contained in this document represents components of the legal health record. It is not the complete legal health record.[facility]
--- OUTSIDE RECORDS SUMMARY | 2024-12-06 11:16 | XMS_ITS | Encounter Summary ---
Author Organization [facility] Address [address] [employer] [address] [address] Phone Care Team Providers Care Table Inspector Name Role Phone Darrell Sutherland MD Primary Care Provider Darrell Sutherland MD Unavailable [phone] Travis Monge MD Unavailable Melanie Henson RN Unavailable Encounter Details Date Type Department Care Team (Late st Contact Info) Description 01/18/2023 Procedure Pass [facility], [address] [address] Social History Tobacco Use Types Packs/Day Years [...] Contact Info) Description 07/12/2024 Procedure Pass [address] [address] 03/27/2025 1:00 PM EST Office Visit [facility] Internal Medicine 40 [place] [address] Darrell Sutherland MD 40 [place] [address] 07/10/2025 11:10 AM EDT Appointment [address] [address] Ciro Kelley MD [address] [place] [address] Avtar [email or web address] 07/10/2025 12:00 PM EDT Appointment [facility], X-Ray - [address] [address] Ciro Kelley MD [address] [place] [address] Avtar [email or web address] 07/16/2025 3:00 PM EDT Telemedicine - audio only [facility] Radiology [facility] [address] [facility], 3rd Floor, [place] [address] Ciro Kelley MD [address] [place] [address] Avtar [email or web address] documented as of this encounter Visit Diagnoses Not on filedocumented in this encounter Additional Health Concerns Infection Onset Date Last Indicated Resolved Time CoV-Risk 07/13/2023 07/13/2023 07/24/2023 1:22 AM EDT Assessment Noted Time PHQ-9 Depression Total Score: 6 01/28/20 23 12:49 PM EST PHQ-2 Depression Total Score: 4 01/28/20 23 12:49 PM EST documented as of this encounter Care Teams Table Inspector Relationship Specialty Start Date End Date Darrell Sutherland MD 40 [place] [address] [email or web address] PCP - General Internal Medicine 01/11/17 Darrell Sutherland MD 40 [place] [address] Insurance Assigned Provider 05/28/23 Travis Monge MD [address] [place] [address] [place] [address] Pulmonary Disease 06/01/22 Melanie Henson, RN [address] [place] [address] [phone] [email or web address] PHCM Assistant Branch Manager 09/19/23 10/24/23 documented as of this encounter Additional Source Comments The information contained in this document represents components of the legal health record. It is not the complete legal health record.[facility]
== END 2024-12-06 10:11 | disposition home or self-care (01) ==
LOC: HO.ACS 09:43
PROVIDERS: PCP Internal Medicine; Visit Provider Internal Medicine Medical Oncology
DX: Z79.01 Long term (current) use of anticoagulants (principal)

== ENCOUNTER → 2024-12-06 09:43 | Outpatient (BNVA) | payer MEDICARE, SELFPAY | PROVIDERS: PCP Internal Medicine; Visit Provider Internal Medicine Medical Oncology | DX: I48.19 Other persistent atrial fibrillation (principal); I26.99 Other pulmonary embolism without acute cor pulmonale; Z51.81 Encounter for therapeutic drug level monitoring; Z79.01 Long term (current) use of anticoagulants | CPT/HCPCS: 85610; 99211 ==

== ENCOUNTER 2024-12-27 09:44 | Outpatient (AMB) | payer MEDICARE, SELFPAY ==
[2024-12-27 10:11] LABS: Prothrombin Time Whole Bld POC 31.3 sec (11.1-13.5); ~PT, ~INR - Anti Coag Clinic 2.6 (0.9-1.1)
--- NOTE | 2024-12-27 10:16 | MHC.OFFVISCO ---
Intake Intake Visit Reasons: Anticoagulation Allergies amlodipine Allergy (Intermediate, Verified 12/27/24 10:06) Difficulty Breathing latex (LATEX) Allergy (Intermediate, Verified 12/27/24 10:06) RASH seasonal Allergy (Intermediate, Uncoded 12/27/24 10:06) Sneezing altace Adverse Reaction (Mild, Uncoded 12/27/24 10:06) Cough Medication List - Last Reconciled 12/27/24 by Tricia Kilgore RN atenolol 50 mg PO BID cholecalciferol (vitamin D3) 25 mcg PO DAILY digoxin 125 mcg PO DAILY furosemide (Lasix) 20 mg PO DAILY PRN olmesartan 20 mg PO DAILY Oxygen Home Use As directed warfarin 5 mg See Protocol PO DAILY Nursing Note INR: 2.6 in therapeutic range of 2-3 Medications and supplements reviewed No changes in health, diet, medications, or supplements, Denies any signs and symptoms of bleeding or bruising or clotting. Bleeding, bruising, clotting discussed Nutritional guidance given to continue to balance foods that raise with foods that lower the INR Dose: 5mg X 4 days and 7.5mg X 3 days (M/W/F) F/U INR: 01/24/25 Patient verbalizes understanding of instructions with read back given Anti-Coag Initial Assessment Social Hx Patient Tobacco Use Status: Former Tobacco user Tobacco use type: Cigarette alcohol intake: former Alcohol intake frequency: does not drink Cardiovascular Hx: HTN, Arrhythmias and Other (atrial fib) Lung Disease HX: DVT/PE (blood clots in lungs 12/13) and Other (interstitial lung disease) Musculoskeletal Hx: Arthritis (bilateral knee, right total replacement) GI Hx: Bleeding (GI, rectal), Diverticulosis and Hemorrhoids Hx: Other (renal cell CA 12/13) Cancer HX: Yes Psych. Illness/Depression: No Coding Level of Care Code Est Patient Level 1 Diagnoses Current use of anticoagulant therapy Z79.01 Assessment & Plan Assessment & Plan (1) Current use of anticoagulant therapy: Code(s): Z79.01 - long term care phlebotomist (current) use of anticoagulants Category: Medical
--- OUTSIDE RECORDS SUMMARY | 2024-12-27 10:59 | XMS_ITS | Encounter Summary ---
Author Organization [facility] Address [address] [address] Phone Care Team Providers Care Set Builder Name Role Phone Darrell Sutherland MD Primary Care Provider Darrell Sutherland MD Unavailable [phone] Travis Monge MD Unavailable Melanie Henson RN Unavailable [phone] Encounter Details Date Type Department Care Team (Late st Contact Info) Description 07/20/2022 Procedure Pass [facility], [address] [address] Social History Tobacco Use Types Packs/Day Years [...] (Latest Contact Info) Description 07/12/2024 Procedure Pass [address] [address] 03/27/2025 1:00 PM EST Office Visit [facility] Internal Medicine 40 [place] [address] Darrell Sutherland MD 40 [place] [address] 07/10/2025 11:10 AM EDT Appointment [address] [address] Ciro Kelley MD [address] [place] [address] Avtar [email or web address] 07/10/2025 12:00 PM EDT Appointment [facility], X-Ray - [address] [address] Ciro Kelley MD [address] [place] [address] Avtar [email or web address] 07/16/2025 3:00 PM EDT Telemedicine - audio only [facility] Radiology [facility] Clinic 70 [facility], 3rd Floor, [place] [address] Ciro Kelley MD [address] [place] [address] Avtar [email or web address] documented as of this encounter Visit Diagnoses Not on filedocumented in this encounter Additional Health Concerns Infection Onset Date Last Indicated Resolved Time CoV-Risk 07/13/2023 07/13/2023 07/24/2023 1:22 AM EDT Assessment Noted Time PHQ-2 Depression Total Score: 0 01/26/20 12:55 PM EST documented as of this encounter Care Teams Set Builder Relationship Specialty Start Date End Date Darrell Sutherland MD 40 [place] [address] [email or web address] PCP - General Internal Medicine 01/11/17 Darrell Sutherland MD 40 [place] [address] Insurance Assigned Provider 05/28/23 Travis Monge MD [address] [place] [address] [place] [address] Pulmonary Disease 06/01/22 Melanie Henson, RN [address] [place] [address] [email or web address] PHCM Compliance Review Specialist 09/19/23 10/24/23 documented as of this encounter Additional Source Comments The information contained in this document represents components of the legal health record. It is not the complete legal health record.[facility]
--- OUTSIDE RECORDS SUMMARY | 2024-12-27 10:59 | XMS_ITS | Patient Health Record ---
Author Organization [facility] Shawanda joshua GalindoRamo Address [address] [place] [address] Care Team Providers Care Assistant Professor Of Theater Name Role Phone Darrell Sutherland MD Primary Care Provider Dylon Morton Unavailable [phone] Allergies Allergen (clinical drug ingredient) Drug/Non Drug [...] Status Risk Notes Problem Acquired hallux valgus (31028818) Hallux valgus (acquired), left foot (M20.12) Active confirmed Problem Acquired hallux valgus (14702981) Hallux valgus (acquired), right foot (M20.11) Active confirmed Problem Acquired hammer toe of right foot (1124038483425 105) Other hammer toe(s) (acquired), right foot (M20.41) Active confirmed Problem Acquired hammer toe of left foot ([id number] 103) Other hammer toe(s) (acquired), left foot (M20.42) Active confirmed Plan Of Treatment Pending Test Test Name Order Date X ray : Foot, right 3V 06/05/2020 Insurance Providers Payer Name Payer Address Payer Phone Subscriber Number Group Number Insured Name Patient Relationship to Insured Coverage Start Date Coverage End Date Medicare National Govt Svcs Inc [address] [place] [address] [id number] Sudha Meek Self - patient is the insured [employer] [address] [place] [address] [id number] Sudha Meek Self - patient is the insured Medical (General) History Medical History History ICD Code High blood pressure Surgical History Surgery Date(Month/Year) right knee replacement 10/2016
--- OUTSIDE RECORDS SUMMARY | 2024-12-27 11:00 | XMS_ITS | Encounter Summary ---
Author Organization [facility] Address 399 [facility] [address] [place] [address] Phone Care Team Providers Care Dinkey Motor Operator Name Role Phone Darrell Sutherland MD Unavailable Radha Giron RETORT LOAD EXPEDITER Unavailable Kianna Abreu RETORT LOAD EXPEDITER Unavailable [phone] Ky Barone SPUN PASTE MACHINE OPERATOR Unavailable Darrell Sutherland MD Primary Care Provider [phone] Darrell Sutherland MD Unavailable Travis Monge MD Unavailable Melanie Henson RN Unavailable [phone] Encounter Details Date Type Department Care Team (Latest Contact Info) Description 06/01/2017 Transcribe Orders [facility] [place] [address] [place], [place] [phone] Darrell Sutherland MD 40 [place], [place] [phone] [email or web address] Pure hypercholesterolemia (Primary Dx); Essential hypertension, [...] (Latest Contact Info) Description 07/12/2024 Procedure Pass [address] [address] 03/27/2025 1:00 PM EST Office Visit [facility] Internal Medicine [address] [place] [address] Darrell Sutherland MD 40 [place] [address] 07/10/2025 11:10 AM EDT Appointment [address] [address] Ciro Kelley MD [address] [place] [address] Avtar [email or web address] 07/10/2025 12:00 PM EDT Appointment [facility], X-Ray - [address] [address] Ciro Kelley MD [address] [place] [address] Avtar [email or web address] 07/16/2025 3:00 PM EDT Telemedicine - audio only [facility] Radiology [facility] [address] [facility], 3rd Floor, [place] [address] Ciro Kelley MD [address] [place] [address] Avtar [email or web address] documented as of this encounter Results * (ABNORMAL) 25-OH vitamin D (06/01/2017 8:19 AM EDT) 25 OH VIT D (TOTAL) 24(L) 30 - 1,000 ng/mL [facility] Blood 06/01/2017 8:19 AM EDT 06/01/2017 8:23 AM EDT us Darrell Sutherland MD LAB BLOOD BKR ORDERABLES Yuliet l Result [address] [address] * Magnesium (06/01/2017 8:19 AM EDT) [facility] MAGNESIUM 2.1 1.6 - 2.6 mg/dL [facility] Blood 06/01/2017 8:19 AM EDT 06/01/2017 8:23 AM EDT us Darrell Sutherland MD LAB BLOOD BKR ORDERABLES Yuliet l Result [address] [address] * Comprehensive metabolic panel (06/01/2017 8:19 AM EDT) Pathologist [facility] SODIUM 141 133 - 146 mmol/L [facility] POTASSIUM 3.8 3.3 - 5.1 mmol/L [facility] CHLORIDE 101 96 - 108 mmol/L [facility] CO2 27 21 - 35 mmol/L [facility] BUN 18 6 - 19 mg/dL [facility] CREATININE 0.60 0.5 - 1.5 mg/dL [facility] GLUCOSE 92 70 - 99 mg/dL [facility] ALBUMIN 4.1 3.9 - 4.8 g/dL [facility] TOTAL PROTEIN 7.2 6.5 - 8.0 g/dL [facility] CALCIUM 9.3 8.4 - 10.3 mg/dL [facility] ALKALINE PHOSPHATASE 71 39 - 117 U/L [facility] TOTAL BILIRUBIN 0.4 0.0 - 1.2 mg/dL [facility] AST 21 0 - 37 U/L [facility] ALT 20 0 - 40 U/L [facility] GLOBULIN 3.1 1 - 4.8 g/dL [facility] EGFR 90 >59 mL/min/1.7 3m2 [facility] Comment:If patient is black, multiply result by 1.159. The eGFR calculation has changed from the MDRD equation to the CKD-EPI equation as of April 26, 2017. ANION GAP 17 10 - 20 mmol/L [facility] Blood 06/01/2017 8:19 AM EDT 06/01/2017 8:23 AM EDT us Darrell Sutherland MD LAB BLOOD BKR ORDERABLES Yuliet l Result Performing Organization Address [facility] de Phone Number [address] [address] * TSH (06/01/2017 8:19 AM EDT) TSH 1.86 0.27 - 4.20 uIU/mL [facility] Blood 06/01/2017 8:19 AM EDT 06/01/2017 8:23 AM EDT us Darrell Sutherland MD LAB BLOOD BKR ORDERABLES Yuliet l Result Performing Organization Address [facility] Co de Phone Number [address] [address] * Lipid panel (06/01/2017 8:19 AM EDT) HDL 46 mg/dL [facility] Comment: Interpretation: Risk Level Females Decreased >55mg/dL Average 50-55 mg/dL Increased <50 mg/dL CHOLESTEROL 191 0 - 240 mg/dL [facility] TRIGLYCERIDES 153 30 - 160 mg/dL [facility] LDL 114 50 - 129 mg/dL [facility] Comment: LDL levels in terms of risk for coronary heart disease: <100 mg/dL: Optimal 100-129 mg/dL: Near or above optimal 130-159 mg/dL: Borderline high 160-189 mg/dL: High >190 mg/dL: Very High CARDIAC RISK RATIO 4.2 3.3 - 4.4 C [facility] Blood 06/01/2017 8:19 AM EDT 06/01/2017 8:23 AM EDT us Darrell Sutherland MD LAB BLOOD BKR ORDERABLES Yuliet l Result Performing Organization Address City/[facility]/ZIP Co de Phone Number [address] [address] * (ABNORMAL) CBC (06/01/2017 8:19 AM EDT) WBC 6.60 3.40 - 11.20 K/uL [facility] RBC 4.84(H) 3.80 - 4.80 M/uL [facility] HGB 13.8 12.0 - 15.0 g/dL [facility] HCT 42.8 36.0 - 46.0 % [facility] PLT 226 130 - 400 K/uL [facility] MCV 88.4 79.0 - 98.0 fL [facility] MCH 28.5 27.0 - 34.8 pg [facility] MCHC 32.2 31.5 - 36.0 g/dL [facility] RDW 14.2 10.8 - 14.6 % [facility] MPV 10.0 9.4 - 12.4 fl [facility] NRBC 0.00 /100 WBCs [facility] ABSOLUTE NRBC 0.00 K/uL [facility] Blood 06/01/2017 8:19 AM EDT 06/01/2017 8:23 AM EDT Darrell Sutherland MD LAB BLOOD BKR ORDERABLES Yuliet l Result Performing Organization Address [facility]/ZIP Co de Phone Number [address] [address] documented in this encounter Visit Diagnoses Diagnosis Pure hypercholesterolemia- Primary Essential hypertension, benign Vitamin D deficiency documented in this encounter Additional Health Concerns Infection Onset Date Last Indicated Resolved Time CoV-Risk 07/13/2023 07/13/2023 07/24/2023 1:22 AM EDT Assessment Noted Time PHQ-2 Depression Total Score: 0 04/30/19 18 10:53 AM EST documented as of this encounter Care Teams Dinkey Motor Operator Relationship Specialty Start Date End Date Darrell uStherland MD [address] [place] [address] PCP - General Internal Medicine 01/11/17 Darrell Sutherland MD [address] [place] [address] Historical LMR Provider 12/11/16 07/31/20 Radha Giron, JONNATHAN [address] [place] [address] [place] [address] Historical LMR Provider 12/11/16 Kianna Abreu NP [address] [place] [address] 6 [place] [address] Historical LMR Provider 12/11/16 07/31/20 Ky Barone CNP [address] [place] [address], [address] [place] [address] Historical LMR Provider 12/11/1607/31 Darrell Sutherland MD [address] [place] [address] Insurance Assigned Provider 05/28/23 Travis Monge MD [address] [place] [address] [place] [address] Pulmonary Disease 06/01/22 Melanie Henson, RN [address] [place] [address] [phone] [email or web address] PHC Branding Machine Operator 09/19/23 10/24/23 documented as of this encounter Additional Source Comments The information contained in this document represents components of the legal health record. It is not the complete legal health record.[facility]
--- OUTSIDE RECORDS SUMMARY | 2024-12-27 11:00 | XMS_ITS | Clinical Summary ---
Author Organization [facility] Address [address] [place] [address] Phone Care Team Providers Care Electronics Specialist Name Role Phone Darrell Sutherland MD Primary Care Provider [phone] Surgical History Surgery Date Site/Laterality Comments US [...] PM EST Appointment [facility] [address] [address] Health Maintenance Due Date Last [...] age to complete this topic Insurance MEDICARE [facility] Care Teams Electronics Specialist Relationship Specialty Start Date End Date Darrell Sutherland MD [address] [place] [address] PCP - General Internal Medicine 12/12/23
--- OUTSIDE RECORDS SUMMARY | 2024-12-27 11:00 | XMS_ITS | Encounter Summary ---
Author Organization [facility] Address 399 [employer] [address] [address] Phone Care Team Providers Care Wave Guide Assembler Name Role Phone Darerll Sutherland MD Primary Care Provider Darrell Sutherland MD Unavailable [phone] Travis Monge MD Unavailable Melanie Henson RN Unavailable [phone] Encounter Details Date Type Department Care Team (Late st Contact Info) Description 01/18/2023 Procedure Pass [facility], [address] [address] Social History Tobacco Use Types Packs/Day Years [...] (Latest Contact Info) Description 07/12/2024 Procedure Pass [address] [address] 03/27/2025 1:00 PM EST Office Visit [facility] Internal Medicine 40 [place] [address] Darrell Sutherland MD [address] [place] [address] 07/10/2025 11:10 AM EDT Appointment [address] [address] Ciro Kelley MD [address] [place] [address] Avtar [email or web address] 07/10/2025 12:00 PM EDT Appointment [facility], X-Ray - [address] [address] Ciro Kelley MD [address] [place] [address] Avtar [email or web address] 07/16/2025 3:00 PM EDT Telemedicine - audio only [facility] Radiology Cross [facility] Clinic 70 [facility], 3rd Floor, [place] [address] Ciro Kelley MD [address] [place] [address] Avtar [email or web address] documented as of this encounter Visit Diagnoses Not on filedocumented in this encounter Additional Health Concerns Infection Onset Date Last Indicated Resolved Time CoV-Risk 07/13/2023 07/13/2023 07/24/2023 1:22 AM EDT Assessment Noted Time PHQ-9 Depression Total Score: 6 01/28/20 23 12:49 PM EST PHQ-2 Depression Total Score: 4 01/28/20 23 12:49 PM EST documented as of this encounter Care Teams Wave Guide Assembler Relationship Specialty Start Date End Date Darrell Sutherland MD [address] [place] [address] [email or web address] PCP - General Internal Medicine 01/11/17 Darrell Sutherland MD [address] [place] [address] Insurance Assigned Provider 05/28/23 Travis Monge MD [address] [place] [address] [place] [address] Pulmonary Disease 06/01/22 Melanie Henson, RN [address] [place] [address] [phone] [email or web address] PHCM Thermometer Production Worker 09/19/23 10/24/23 documented as of this encounter Additional Source Comments The information contained in this document represents components of the legal health record. It is not the complete legal health record.[facility]
--- OUTSIDE RECORDS SUMMARY | 2024-12-27 11:00 | XMS_ITS | Encounter Summary ---
Author Organization [facility] Address [address] [place] [address] Phone Care Team Providers Care Lung Splitter Name Role Phone Darrell Sutherland MD Primary Care Provider Darrell Sutherland MD Unavailable [phone] Travis Monge MD Unavailable Melanie Henson RN Unavailable [phone] Encounter Details Date Type Department Care Team (Late st Contact Info) Description 06/08/2022 Procedure Pass [facility] Periop 75 [place] [address] Social History Tobacco Use Types Packs/Day Years [...] (Latest Contact Info) Description 07/12/2024 Procedure Pass [facility] 30 [place] [address] 03/27/2025 1:00 PM EST Office Visit [facility] Internal Medicine [address] [address] Darrell Sutherland MD 40 [place] [address] [email or web address] 07/10/2025 11:10 AM EDT Appointment [facility], Mri - [address] [address] Ciro Kelley MD [address] [place] [address] Avtar [email or web address] 07/10/2025 12:00 PM EDT Appointment [facility] X-Ray [address] [address] Ciro Kelley MD [address] [place] [address] Avtar [email or web address] 07/16/2025 3:00 PM EDT Telemedicine - audio only [facility] Radiology Cross [facility]al Clinic 70 [facility], 3rd Floor, [place] [address] Ciro Kelley MD [address] [place] [address] Avtar [email or web address] documented as of this encounter Visit Diagnoses Not on filedocumented in this encounter Additional Health Concerns Infection Onset Date Last Indicated Resolved Time CoV-Risk 07/13/2023 07/13/2023 07/24/2023 1:22 AM EDT Assessment Noted Time PHQ-2 Depression Total Score: 0 01/26/20 12:55 PM EST documented as of this encounter Care Teams Lung Splitter Relationship Specialty Start Date End Date Darrell Sutherland MD [address] [place] [address] PCP - General Internal Medicine 01/11/17 Darrell Sutherland MD [address] [place] [address] [email or web address] Insurance Assigned Provider 05/28/23 Travis Monge MD [address] [place] [address] [place] [address] Pulmonary Disease 06/01/22 Melanie Henson, RN [address] [place] [address] [email or web address] PHCM Therapist Respiratory 09/19/23 10/24/23 documented as of this encounter Additional Source Comments The information contained in this document represents components of the legal health record. It is not the complete legal health record.[facility]
--- OUTSIDE RECORDS SUMMARY | 2024-12-27 11:00 | XMS_ITS | Encounter Summary ---
Author Organization [facility] Address [address] [place] [address] Phone Care Team Providers Care Manager Talent Management Name Role Phone Darrell Sutherland MD Primary Care Provider Darrell Sutherland MD Unavailable [phone] Travis Monge MD Unavailable Melanie Henson RN Unavailable [phone] Encounter Details Date Type Department Care Team (Late st Contact Info) Description 06/08/2022 Procedure Pass [facility] Periop 75 [place] [address] Social History Tobacco Use Types Packs/Day Years [...] (Latest Contact Info) Description 07/12/2024 Procedure Pass [facility], [facility] 30 [place] [address] 03/27/2025 1:00 PM EST Office Visit [facility] Internal Medicine [address] [place] [address] Darrell Sutherland MD 40 [place] [address] [email or web address] 07/10/2025 11:10 AM EDT Appointment [facility], Mri - [address] [address] Ciro Kelley MD [address] [place] [address] Avtar [email or web address] 07/10/2025 12:00 PM EDT Appointment [facility] X-Ray [address] [address] Ciro Kelley MD [address] [place] [address] Avtar [email or web address] 07/16/2025 3:00 PM EDT Telemedicine - audio only [facility] Radiology [facility] 70 [facility], 3rd Floor, [place] [address] Ciro Kelley MD [address] [place] [address] Avtar [email or web address] documented as of this encounter Visit Diagnoses Not on filedocumented in this encounter Additional Health Concerns Infection Onset Date Last Indicated Resolved Time CoV-Risk 07/13/2023 07/13/2023 07/24/2023 1:22 AM EDT Assessment Noted Time PHQ-2 Depression Total Score: 0 01/26/20 12:55 PM EST documented as of this encounter Care Teams Manager Talent Management Relationship Specialty Start Date End Date Darrell Sutherland MD 40 [place] [address] PCP - General Internal Medicine 01/11/17 Darrell Sutherland MD [address] [place] [address] [email or web address] Insurance Assigned Provider 05/28/23 Travis Monge MD [address] [place] [address] [place] [address] Pulmonary Disease 06/01/22 Melanie Henson, RN [address] [place] [address] [email or web address] PHCM Cigar Maker 09/19/23 10/24/23 documented as of this encounter Additional Source Comments The information contained in this document represents components of the legal health record. It is not the complete legal health record.[facility]
--- OUTSIDE RECORDS SUMMARY | 2024-12-27 11:00 | XMS_ITS | Encounter Summary ---
Author Organization [facility] Address [address] [place] [address] Phone Care Team Providers Care Manager Regulatory Name Role Phone Darrell Sutherland MD Primary Care Provider Darrell Sutherland MD Unavailable [phone] Travis Monge MD Unavailable Melanie Henson RN Unavailable [phone] Encounter Details Date Type Department Care Team (Late st Contact Info) Description 06/15/[address] [address] Social History Tobacco Use Types Packs/Day Years [...] Team (Latest Contact Info) Description 07/12/[address] [address] 03/27/2025 1:00 PM EST Office Visit [facility] Internal Medicine 40 [place] [address] Darrell Sutherland MD 40 [place] [address] 07/10/2025 11:10 AM EDT Appointment [address] [address] Ciro Kelley MD [address] [place] [address] Avtar [email or web address] 07/10/2025 12:00 PM EDT Appointment [facility] X-Ray [address] [address] Ciro Kelley MD [address] [place] [address] Avtar [email or web address] 07/16/2025 3:00 PM EDT Telemedicine - audio only [facility] Radiology Cross Sectional Clinic 70 [facility], 3rd Floor, [place] [address] Ciro Kelley MD [address] [place] [address] Avtar [email or web address] documented as of this encounter Visit Diagnoses Not on filedocumented in this encounter Additional Health Concerns Infection Onset Date Last Indicated Resolved Time CoV-Risk 07/13/2023 07/13/2023 07/24/2023 1:22 AM EDT Assessment Noted Time PHQ-2 Depression Total Score: 0 01/26/20 12:55 PM EST documented as of this encounter Care Teams Manager Regulatory Relationship Specialty Start Date End Date Darrell Sutherland MD [address] [place] [address] [email or web address] PCP - General Internal Medicine 01/11/17 Darrell Sutherland MD [address] [place] [address] Insurance Assigned Provider 05/28/23 Travis Monge MD [address] [place] [address] [place] [address] Pulmonary Disease 06/01/22 Melanie Henson, RN [address] [place] [id number] [email or web address] PHCM Sheep Sticker 09/19/23 10/24/23 documented as of this encounter Additional Source Comments The information contained in this document represents components of the legal health record. It is not the complete legal health record.[facility]
--- OUTSIDE RECORDS SUMMARY | 2024-12-27 11:00 | XMS_ITS | Patient Health Record ---
Author Organization [facility] Address [address] [place] [address] Care Team Providers Care Brand Sales Consultant Name Role Phone Darrell Sutherland MD Primary Care Provider Jay Talbot Unavailable [phone] Allergies No Known Allergies Reason For Referral [...] Risk Notes Problem Diverticular disease of colon (389738972) Diverticulosis of large intestine without perforation or abscess without bleeding (K57.30) Active confirmed Problem Gastrointestinal hemorrhage (75606880) Lower GI bleed (K92.2) Active confirmed Plan Of Treatment Future Test Test Name Order Date COLONOSCOPY 02/27/2013 COLONOSCOPY 05/12/2023 Insurance Providers Payer Name Payer Address Payer Phone Subscriber Number Group Number Insured Name Patient Relationship to Insured Coverage Start Date Coverage End Date MEDICARE OF [place] [address] [place] [address] [id number] ROLAN GEORGE Self - patient is the insured [employer] ATTN CLAIMS [address] [place] [phone] [id number] ROLAN GEORGE Self - patient is the insured Medical (General) History Medical History History ICD Code Choledocholithiasis--removed via ERCP in 02/2010 prior to Lap [facility]Y Hypertension Denies NC,DM,CVA,renal disease AFIB - Dr. 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
--- OUTSIDE RECORDS SUMMARY | 2024-12-27 11:00 | XMS_ITS | Encounter Summary ---
Author Organization [facility] Address [address] [place] [address] Phone Care Team Providers Care Supervisor In Charge Name Role Phone Darrell Sutherland MD Primary Care Provider Darrell Sutherland MD Unavailable [phone] Travis Monge MD Unavailable [phone] Melanie Henson RN Unavailable Encounter Details Date Type Department Care Team (Late st Contact Info) Description 03/23/2022 Procedure Pass [facility] Ct Scan [address] [address] Social History Tobacco Use Types Packs/Day Years [...] Team (Latest Contact Info) Description 07/12/[address] [address] 03/27/2025 1:00 PM EST Office Visit [facility] Internal Medicine [address] [place] [address] Darrell Sutherland MD 40 [place] [address] 07/10/2025 11:10 AM EDT Appointment [facility], Mri - [address] [address] Ciro Kelley MD [address] [place] [address] Avtar [email or web address] 07/10/2025 12:00 PM EDT Appointment [facility] X-Ray - [address] [address] Ciro Kelley MD [address] [place] [address] Avtar [email or web address] 07/16/2025 3:00 PM EDT Telemedicine - audio only [facility] Radiology Cross Sectional Clinic 70 [facility], 3rd Floor, [place] [address] Ciro Kelley MD [address] [place] [address] Avtar [email or web address] documented as of this encounter Visit Diagnoses Not on filedocumented in this encounter Additional Health Concerns Infection Onset Date Last Indicated Resolved Time CoV-Risk 07/13/2023 07/13/2023 07/24/2023 1:22 AM EDT Assessment Noted Time PHQ-2 Depression Total Score: 0 01/26/20 12:55 PM EST documented as of this encounter Care Teams Supervisor In Charge Relationship Specialty Start Date End Date Darrell Sutherland MD [address] [place] [address] [email or web address] PCP - General Internal Medicine 01/11/17 Darrell Sutherland MD [address] [place] [address] Insurance Assigned Provider 05/28/23 Travis Monge MD [address] [place] [address] [place] [address] Pulmonary Disease 06/01/22 Melanie Henson, RN [address] [place] [address] [email or web address] PHCM Benefits Sales Consultant 09/19/23 10/24/23 documented as of this encounter Additional Source Comments The information contained in this document represents components of the legal health record. It is not the complete legal health record.[facility]
--- OUTSIDE RECORDS SUMMARY | 2024-12-27 11:00 | XMS_ITS | Clinical Summary ---
Author Organization [facility] Address [address] [address] Phone Care Team Providers Care Curb Supervisor Name Role Phone Darrell Sutherland MD Primary Care Provider [phone] Darrell Sutherland MD Unavailable [phone] Travis Monge MD Unavailable Allergies Active [...] every other day. Managed by Dr. Ryan [facility] Cardiology Active olmesartan (BENICAR) 20 mg tablet Take 20 mg by mouth every morning. 08/29/19 Active hydrocortisone 2.5 % cream Apply 1 Application topically as needed (for previous incision site on lower abdomen). 09/14/19 Active warfarin (COUMADIN) 5 MG tabletIndication s:Persistent atrial fibrillation,Kranthi ateral pulmonary embolism Take 1-1.5 tablets (5-7.5 mg total) by mouth as directed. Alternating 1 tablet qod and 1.5 tablets qod 135 tablet 3 11/29/19 Active Active Problems Problem Noted Date Diagnosed [...] lung disease) 04/01/2022 Overview (11/07/2023): Saw melinda Sveilla/ Adan, 07/26/23 at [facility]- for sick visit after abnormal imaging- plan [...] Type Department Care Team Description 11/27/2024 Refill [facility] Internal Medicine 40 [facility] [place] [address] Darrell Sutherland MD Medication Refill from Last 3 Months Immunizations Immunization Administration [...] (Latest Contact Info) Description 07/12/2024 Procedure Pass [facility], [facility] 30 [place] [address] 03/27/2025 1:00 PM EST Office Visit [facility] Internal Medicine 40 [place] [address] Darrell Sutherland MD 40 [place] [address] 07/10/2025 11:10 AM EDT Appointment [facility], Mri - [address] [address] Ciro Kelley MD [address] [place] [address] Avtar [email or web address] 07/10/2025 12:00 PM EDT Appointment [facility], X-Ray - [address] [address] Ciro Kelley MD [address] [place] [address] Avtar [email or web address] 07/16/2025 3:00 PM EDT Telemedicine - audio only [facility] Radiology Cross Sectional Clinic 70 [facility], 3rd Floor, [place] [address] Ciro Kelley MD [address] [place] [address] Avtar [email or web address] Health Maintenance Due Date Last Done Comments [...] Procedure Name Priority Date/Time Associated Diagnosis Comments BASIC METABOLIC PANEL (BMP) Routine 08/07/2024 11:15 AM EDT OUTSIDE BONE DENSITY SCREENING Routine 07/14/2017 from Last 3 Months or Most Recently Relevant to Health Maintenance Results * Basic metabolic panel (08/07/2024 11:15 AM EDT) Historical Provider LAB BLOOD BKR ORDERABLES Final Result * OUTSIDE BONE DENSITY SCREENING (07/14/2017) [facility] BONE DENSITY SCREENING - EXTERNAL 2 yr recall us Historical Provider HEALTH MAINTENANCE Final Result from Last 3 Months or Most Recently Relevant to Health Maintenance Insurance MEDICARE PART A & B [employer] SUPPLEMENT MEDICARE PART A & B [employer] SUPPLEMENT MEDICARE PART A & B [employer] SUPPLEMENT MEDICARE PART A & B [employer] SUPPLEMENT MEDICARE PART A & B [employer] MEDEX SUPPLEMENT MEDICARE PART A & B [employer] MEDEX SUPPLEMENT MEDICARE PART A & B [employer] MED[employer] SUPPLEMENT MEDICARE PART A & B [employer] SUPPLEMENT MEDICARE PART A & B [employer] SUPPLEMENT Care Teams Curb Supervisor Relationship Specialty Start Date End Date Darrell Sutherland MD [address] [place] [address] [email or web address] PCP - General Internal Medicine 01/11/17 Darrell Sutherland MD 40 [facility] [place] [address] [email or web address] Insurance Assigned Provider 05/28/23 Travis Monge MD [address] [place] [address] [place] [address] Pulmonary Disease 06/01/22 Additional Source Comments The information contained in this document represents components of the legal health record. It is not the complete legal health record.[facility]
--- OUTSIDE RECORDS SUMMARY | 2024-12-27 11:00 | XMS_ITS | Encounter Summary ---
Author Organization [facility] Address [address] [facility] [address] [place] [address] Phone Care Team Providers Care Senior Sales Operations Analyst Name Role Phone Darrell Sutherland MD Primary Care Provider Darrell Sutherland MD Unavailable [phone] Travis Monge MD Unavailable Melanie Henson RN Unavailable [phone] Encounter Details Date Type Department Care Team (Late st Contact Info) Description 07/26/2023 Procedure Pass [facility], [address] [address] Social History Tobacco Use Types Packs/Day Years [...] Contact Info) Description 07/12/2024 Procedure Pass [address] [address] 03/27/2025 1:00 PM EST Office Visit [facility] Internal Medicine 40 [place] [address] Darrell Sutherland MD 40 [place] [address] 07/10/2025 11:10 AM EDT Appointment [address] [address] Ciro Kelley MD [address] [place] [address] Avtar [email or web address] 07/10/2025 12:00 PM EDT Appointment [facility], X-Ray - [address] [address] Ciro Kelley MD [address] [place] [address] Avtar [email or web address] 07/16/2025 3:00 PM EDT Telemedicine - audio only [facility] Radiology Cross Sectional Clinic 70 [facility], 3rd Floor, [place] [address] Ciro Kelley MD [address] [place] [address] Avtar [email or web address] documented as of this encounter Visit Diagnoses Not on filedocumented in this encounter Additional Health Concerns Assessment Noted Time PHQ-9 Depression Total Score: 6 01/28/20 23 12:49 PM EST PHQ-2 Depression Total Score: 0 02/23/19 25 12:42 PM EST documented as of this encounter Care Teams Senior Sales Operations Analyst Relationship Specialty Start Date End Date Darrell Sutherland MD 40 [place] [address] PCP - General Internal Medicine 01/11/17 Darrell Sutherland MD 40 [place] [address] Insurance Assigned Provider 05/28/23 Travis Monge MD [address] [place] [address] [place] [address] Pulmonary Disease 06/01/22 Melanie Henson, RN [address] [place] [id number] PHCM Chaser Helper 09/19/23 10/24/23 documented as of this encounter Additional Source Comments The information contained in this document represents components of the legal health record. It is not the complete legal health record.[facility]
--- OUTSIDE RECORDS SUMMARY | 2024-12-27 11:00 | XMS_ITS | Encounter Summary ---
Author Organization [facility] Address [address] [address] Phone Care Team Providers Care Armhole Sewer Name Role Phone Darrell Sutherland MD Primary Care Provider [phone] Darrell Stuherland MD Unavailable [phone] Travis Monge MD Unavailable Melanie Henson RN Unavailable [phone] Encounter Details Date Type Department Care Team (Late st Contact Info) Description 06/10/2022 Telephone [facility] PRE/PACU 75 [place] [address] Wanda Trevino, RN [address] [place] [address] [email or web address] Social History Tobacco Use Types Packs/Day [...] Description 07/12/2024 Procedure Pass [facility], [address] [address] 03/27/2025 1:00 PM EST Office Visit [facility] Internal Medicine 40 [place] [address] Darrell Sutherland MD 40 [place] [address] 07/10/2025 11:10 AM EDT Appointment [facility], Mri - [address] [address] Ciro Kelley MD [address] [place] [address] Avtar [email or web address] 07/10/2025 12:00 PM EDT Appointment [facility] X-Ray - [address] [address] Ciro Kelley MD [address] [place] [address] Avtar [email or web address] 07/16/2025 3:00 PM EDT Telemedicine - audio only [facility] Radiology Cross Sectional Clinic [address] [place] [address], 3rd Floor, [place] [address] Ciro Kelley MD [address] [place] [address] Avtar [email or web address] documented as of this encounter Visit Diagnoses Not on filedocumented in this encounter Additional Health Concerns Infection Onset Date Last Indicated Resolved Time CoV-Risk 07/13/2023 07/13/2023 07/24/2023 1:22 AM EDT Assessment Noted Time PHQ-2 Depression Total Score: 0 01/26/20 12:55 PM EST documented as of this encounter Care Teams Armhole Sewer Relationship Specialty Start Date End Date Darrell Sutherland MD [address] [place] [address] [email or web address] PCP - General Internal Medicine 01/11/17 Darrell Sutherland MD 40 [place] [address] [email or web address] Insurance Assigned Provider 05/28/23 Travis Monge MD [address] [place] [address] [place] [address] Pulmonary Disease 06/01/22 Melanie Henson, RN [address] [place] [phone] [email or web address] PHCM Electronic Prepress Operator 09/19/23 10/24/23 documented as of this encounter Additional Source Comments The information contained in this document represents components of the legal health record. It is not the complete legal health record.[facility]
== END 2024-12-27 10:17 | disposition home or self-care (01) ==
LOC: HO.ACS 09:44
PROVIDERS: PCP Internal Medicine; Visit Provider Internal Medicine Medical Oncology
DX: Z79.01 Long term (current) use of anticoagulants (principal)

== ENCOUNTER → 2024-12-27 09:44 | Outpatient (BNVA) | payer MEDICARE, SELFPAY | PROVIDERS: PCP Internal Medicine; Visit Provider Internal Medicine Medical Oncology | DX: I48.19 Other persistent atrial fibrillation (principal); Z51.81 Encounter for therapeutic drug level monitoring; Z79.01 Long term (current) use of anticoagulants | CPT/HCPCS: 85610; 99211 ==

== ENCOUNTER 2025-01-24 09:50 | Outpatient (AMB) | payer MEDICARE, SELFPAY ==
[2025-01-24 09:58] LABS: Prothrombin Time Whole Bld POC 34.8 sec (11.1-13.5); ~PT, ~INR - Anti Coag Clinic 2.9 (0.9-1.1)
--- NOTE | 2025-01-24 10:03 | MHC.OFFVISCO ---
Intake Intake Visit Reasons: Anticoagulation Allergies amlodipine Allergy (Intermediate, Verified 01/24/25 09:51) Difficulty Breathing latex (LATEX) Allergy (Intermediate, Verified 01/24/25 09:51) RASH seasonal Allergy (Intermediate, Uncoded 01/24/25 09:51) Sneezing altace Adverse Reaction (Mild, Uncoded 01/24/25 09:51) Cough Medication List - Last Reconciled 01/24/25 by Tricia Kilgore RN atenolol 50 mg PO BID cholecalciferol (vitamin D3) 25 mcg PO DAILY digoxin 125 mcg PO DAILY furosemide (Lasix) 20 mg PO DAILY PRN olmesartan 20 mg PO DAILY Oxygen Home Use As directed warfarin 5 mg See Protocol PO DAILY Nursing Note INR: 2.9 in therapeutic range of 2-3 Medications and supplements reviewed No changes in health, diet, medications, or supplements, Denies any signs and symptoms of bleeding or bruising or clotting. 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 Illness/Depression: No Coding Level of Care Code Est Patient Level 1 Diagnoses Current use of anticoagulant therapy Z79.01 Assessment & Plan Assessment & Plan (1) Current use of anticoagulant therapy: Code(s): Z79.01 - rn long term care (current) use of anticoagulants Category: Medical
--- OUTSIDE RECORDS SUMMARY | 2025-01-24 11:25 | XMS_ITS | Encounter Summary ---
Author Organization [facility] Address [address] [address] Phone Care Team Providers Care Motor Inspection Mechanic Name Role Phone Darrell Sutherland MD Primary Care Provider [phone] Darrell Sutherland MD Unavailable [phone] Travis Monge MD Unavailable Melanie Henson RN Unavailable [phone] Encounter Details Date Type Department Care Team (Late st Contact Info) Description 06/10/2022 Telephone [facility] PRE/PACU [address] [place] [address] Wanda Trevino, RN 75 [place] [address] [email or web address] Social History Tobacco Use Types [...] (Latest Contact Info) Description 07/12/2024 Procedure Pass [facility], [address] [address] 03/27/2025 1:00 PM EST Office Visit [facility] Medical [facility] Internal Medicine 40 [place] [address] Darrell Sutherland MD 40 [place] [address] 07/10/2025 11:10 AM EDT Appointment [facility], Mri - [address] [address] Ciro Kelley MD [address] [place] [address] Avtar [email or web address] 07/10/2025 12:00 PM EDT Appointment [facility] X-Ray - [address] [address] Ciro Kelley MD [address] [place] [address] Avtar [email or web address] 07/16/2025 3:00 PM EDT Telemedicine - audio only [facility] Radiology [facility] [address] [place] [address], 3rd Floor, [place] [address] Ciro Kelley MD [address] [place] [address] Avtar [email or web address] documented as of this encounter Visit Diagnoses Not on filedocumented in this encounter Additional Health Concerns Infection Onset Date Last Indicated Resolved Time CoV-Risk 07/13/2023 07/13/2023 07/24/2023 1:22 AM EDT Assessment Noted Time PHQ-2 Depression Total Score: 0 01/26/20 12:55 PM EST documented as of this encounter Care Teams Motor Inspection Mechanic Relationship Specialty Start Date End Date Darrell Sutherland MD [address] [place] [address] [email or web address] PCP - General Internal Medicine 01/11/17 Darrell Sutherland MD [address] [place] [address] [email or web address] Insurance Assigned Provider 05/28/23 Travis Monge MD [address] [place] [address] [place] [address] Pulmonary Disease 06/01/22 Melanie Henson, RN [address] [place] [address] [phone] [email or web address] PHCM Media/Instructional Designer 09/19/23 10/24/23 documented as of this encounter Additional Source Comments The information contained in this document represents components of the legal health record. It is not the complete legal health record.[facility]
--- OUTSIDE RECORDS SUMMARY | 2025-01-24 11:25 | XMS_ITS | Clinical Summary ---
Author Organization [facility] Address [address] [place] [address] Phone Care Team Providers Care Deputy District Customs Director Name Role Phone Darrell Sutherland MD Primary Care Provider [phone] Surgical History Surgery Date Site/Laterality Comments US [...] Care Team (Late st Contact Info) Description 04/17/2025 1:00 PM EST Appointment [facility] [address] [address] Health Maintenance Due Date Last Done Comments Zoster Vaccines (2 of 3) 01/16/2009 11/21/2008 Cholesterol Screening (Lipid Panel) 01/24/2022 Falls Risk Assessment 01/24/2022 Medicare Annual Wellness Visit 01/24/2022 Osteoporosis Screening (Bone Density Screening) 01/24/2022 Social Influencers of Health Screening 01/24/2022 Depression Screening 02/22/2024 Hypertension/CHF/CAD Annual BMP Blood Test 05/04/2024 05/05/2023, 12/13/2022, 01/28/2022, Additional history exists COVID-19 Vaccine ( - 2024- season) 2024 11/07/2023, 12/16/2022, 01/22/2022, Additional history [...] age to complete this topic Insurance MEDICARE [facility] Care Teams Deputy District Customs Director Relationship Specialty Start Date End Date Darrell Sutherland MD [address] [place] [phone] PCP - General Internal Medicine 12/12/23
--- OUTSIDE RECORDS SUMMARY | 2025-01-24 11:25 | XMS_ITS | Encounter Summary ---
Author Organization [facility] Address [address] [employer] [address] [place] [address] Phone Care Team Providers Care Drilling Machine Operator Name Role Phone Darrell Sutherland MD Primary Care Provider Darrell Sutherland MD Unavailable [phone] Travis Monge MD Unavailable Melanie Henson RN Unavailable [phone] Encounter Details Date Type Department Care Team (Late st Contact Info) Description 03/23/2022 Procedure Pass [facility] Ct Scan [address] [address] Social History Tobacco Use Types Packs/Day Years [...] Team (Latest Contact Info) Description 07/12/[address] [address] 03/27/2025 1:00 PM EST Office Visit [facility] Internal Medicine [address] [place] [address] Darrell Sutherland MD 40 [place] [address] 07/10/2025 11:10 AM EDT Appointment [facility], Mri - [address] [address] Ciro Kelley MD [address] [place] [address] Avtar [email or web address] 07/10/2025 12:00 PM EDT Appointment [facility] X-Ray - [address] [address] Ciro Kelley MD [address] [place] [address] Avtar [email or web address] 07/16/2025 3:00 PM EDT Telemedicine - audio only [facility] Radiology [facility] 70 [facility], 3rd Floor, [place] [address] Ciro Kelley MD [address] [place] [address] Avtar [email or web address] documented as of this encounter Visit Diagnoses Not on filedocumented in this encounter Additional Health Concerns Infection Onset Date Last Indicated Resolved Time CoV-Risk 07/13/2023 07/13/2023 07/24/2023 1:22 AM EDT Assessment Noted Time PHQ-2 Depression Total Score: 0 01/26/20 12:55 PM EST documented as of this encounter Care Teams Drilling Machine Operator Relationship Specialty Start Date End Date Darrell Sutherland MD [address] [place] [address] [email or web address] PCP - General Internal Medicine 01/11/17 Darrell Sutherland MD [address] [place] [address] Insurance Assigned Provider 05/28/23 Travis Monge MD [address] [place] [address] [place] [address] Pulmonary Disease 06/01/22 Melanie Henson, RN [address] [place] [address] [email or web address] PHCM Leaf Sucker Operator 09/19/23 10/24/23 documented as of this encounter Additional Source Comments The information contained in this document represents components of the legal health record. It is not the complete legal health record.[facility]
--- OUTSIDE RECORDS SUMMARY | 2025-01-24 11:25 | XMS_ITS | Encounter Summary ---
Author Organization [facility] Address [address] [place] [address] Phone Care Team Providers Care Syrup Maker Name Role Phone Darrell Sutherland MD Primary Care Provider Darrell Sutherland MD Unavailable [phone] Travis Monge MD Unavailable Melanie Henson RN Unavailable Encounter Details Date Type Department Care Team (Late st Contact Info) Description 06/08/2022 Procedure Pass [facility] Periop 75 [place] [address] Social History Tobacco Use Types Packs/Day Years [...] (Latest Contact Info) Description 07/12/2024 Procedure Pass [facility], [facility] [address] [place] [address] 03/27/2025 1:00 PM EST Office Visit [facility] Internal Medicine [address] [place] [address] Darrell Sutherland MD 40 [place] [address] [email or web address] 07/10/2025 11:10 AM EDT Appointment [facility], Mri - [address] [address] Ciro Kelley MD [address] [place] [address] Avtar [email or web address] 07/10/2025 12:00 PM EDT Appointment [facility] X-Ray [address] [address] Ciro Kelley MD [address] [place] [address] Avtar [email or web address] 07/16/2025 3:00 PM EDT Telemedicine - audio only [facility] Radiology [facility] 70 [facility], 3rd Floor, [place] [address] Ciro Kelley MD [address] [place] [address] Avtar [email or web address] documented as of this encounter Visit Diagnoses Not on filedocumented in this encounter Additional Health Concerns Infection Onset Date Last Indicated Resolved Time CoV-Risk 07/13/2023 07/13/2023 07/24/2023 1:22 AM EDT Assessment Noted Time PHQ-2 Depression Total Score: 0 01/26/20 12:55 PM EST documented as of this encounter Care Teams Syrup Maker Relationship Specialty Start Date End Date Darrell Sutherland MD 40 [place] [address] [email or web address] PCP - General Internal Medicine 01/11/17 Darrell Sutherland MD [address] [place] [address] [email or web address] Insurance Assigned Provider 05/28/23 Travis Monge MD [address] [place] [address] [place] [address] Pulmonary Disease 06/01/22 Melanie Henson, RN [address] [place] [address] [email or web address] PHCM Operations And Maintenance Manager 09/19/23 10/24/23 documented as of this encounter Additional Source Comments The information contained in this document represents components of the legal health record. It is not the complete legal health record.[facility]
--- OUTSIDE RECORDS SUMMARY | 2025-01-24 11:25 | XMS_ITS | Encounter Summary ---
Author Organization [facility] Address [address] [place] [address] Phone Care Team Providers Care Dough Mixer Helper Name Role Phone Darrell Sutherland MD Primary Care Provider [phone] Darrell Sutherland MD Unavailable [phone] Travis Monge MD Unavailable [phone] Melanie Henson RN Unavailable [phone] Encounter Details Date Type Department Care Team (Late st Contact Info) Description 06/15/[address] [address] Social History Tobacco Use Types Packs/Day Years [...] Team (Latest Contact Info) Description 07/12/[address] [address] 03/27/2025 1:00 PM EST Office Visit [facility] Internal Medicine [address] [place] [address] Darrell Sutherland MD 40 [place] [address] 07/10/2025 11:10 AM EDT Appointment [address] [address] Ciro Kelley MD [address] [place] [address] Avtar [email or web address] 07/10/2025 12:00 PM EDT Appointment [facility] X-Ray [address] [address] Ciro Kelley MD [address] [place] [address] Avtar [email or web address] 07/16/2025 3:00 PM EDT Telemedicine - audio only [facility] Radiology [facility] 70 [facility], 3rd Floor, [place] [address] Ciro Kelley MD [address] [place] [address] Avtar [email or web address] documented as of this encounter Visit Diagnoses Not on filedocumented in this encounter Additional Health Concerns Infection Onset Date Last Indicated Resolved Time CoV-Risk 07/13/2023 07/13/2023 07/24/2023 1:22 AM EDT Assessment Noted Time PHQ-2 Depression Total Score: 0 01/26/20 12:55 PM EST documented as of this encounter Care Teams Dough Mixer Helper Relationship Specialty Start Date End Date Darrell Sutherland MD 40 [place] [address] [email or web address] PCP - General Internal Medicine 01/11/17 Darrell Sutherland MD 40 [place] [address] Insurance Assigned Provider 05/28/23 Travis Monge MD [address] [place] [address] [place] [address] Pulmonary Disease 06/01/22 Melanie Henson, RN [address] [place] [address] [phone] [email or web address] PHCM Sound Engineer Audio Control 09/19/23 10/24/23 documented as of this encounter Additional Source Comments The information contained in this document represents components of the legal health record. It is not the complete legal health record.[facility]
--- OUTSIDE RECORDS SUMMARY | 2025-01-24 11:25 | XMS_ITS | Clinical Summary ---
Author Organization [facility] Address [address] [address] Phone Care Team Providers Care Information Receptionist Name Role Phone Darrell Sutherland MD Primary Care Provider Darrell Sutherland MD Unavailable [phone] Travis Monge MD Unavailable Allergies Active [...] every other day. Managed by Dr. Ryan [facility] Active olmesartan (BENICAR) 20 mg tablet [...] (11/07/2023): Saw melinda Sevilla/ Adan, 07[place]26/23 at [facility] after abnormal imaging- plan [...] Department Care Team Description 11/27/2024 Refill [facility] Internal Medicine 40 [facility] [place] [address] Darrell Sutherland MD Medication Refill from Last [...] (Latest Contact Info) Description 07/12/2024 Procedure Pass [facility], [facility] [address] [place] [address] 03/27/2025 1:00 PM EST Office Visit [facility] Internal Medicine 40 [place] [address] Darrell Sutherland MD 40 [place] [address] 07/10/2025 11:10 AM EDT Appointment [facility], Mri - [address] [address] Ciro Kelley MD [address] [place] [address] Avtar [email or web address] 07/10/2025 12:00 PM EDT Appointment [facility], X-Ray - [address] [address] Ciro Kelley MD [address] [place] [address] Avtar [email or web address] 07/16/2025 3:00 PM EDT Telemedicine - audio only [facility] Radiology Cross [facility]al Clinic 70 [facility], 3rd Floor, [place] [address] Ciro Kelley MD [address] [place] [address] Avtar [email or web address] Health Maintenance Due Date Last Done [...] Result * OUTSIDE BONE DENSITY SCREENING (07/14/2017) [facility] BONE DENSITY SCREENING - EXTERNAL 2 yr recall us Historical Provider HEALTH MAINTENANCE Final Result from Last 3 Months or Most Recently Relevant to Health Maintenance Insurance MEDICARE PART A & B [employer] MEDEX SUPPLEMENT MEDICARE PART A & B [employer] MEDEX SUPPLEMENT MEDICARE PART A & B [employer] MEDEX SUPPLEMENT MEDICARE PART A & B [employer] MEDEX SUPPLEMENT MEDICARE PART A & B [employer] MEDEX SUPPLEMENT MEDICARE PART A & B [employer] MEDEX SUPPLEMENT MEDICARE PART A & B [employer] MEDEX SUPPLEMENT MEDICARE PART A & B [employer] MEDEX SUPPLEMENT MEDICARE PART A & B [employer] MEDEX SUPPLEMENT Care Teams Information Receptionist Relationship Specialty Start Date End Date Darrell Sutherland MD [address] [place] [address] [email or web address] PCP - General Internal Medicine 01/11/17 Darrell Sutherland MD 40 [facility] [place] [address] [email or web address] Insurance Assigned Provider 05/28/23 Travis Monge MD [address] [place] [address] [place] [address] Pulmonary Disease 06/01/22 Additional Source Comments The information contained in this document represents components of the legal health record. It is not the complete legal health record.[facility]
--- OUTSIDE RECORDS SUMMARY | 2025-01-24 11:25 | XMS_ITS | Encounter Summary ---
Author Organization [facility] Address [address] [address] Phone Care Team Providers Care Secondary School Teacher Name Role Phone Darrell Sutherland MD Primary Care Provider [phone] Darrell Sutherland MD Unavailable [phone] Travis oMnge MD Unavailable Melanie Henson RN Unavailable [phone] Encounter Details Date Type Department Care Team (Late st Contact Info) Description 07/20/2022 Procedure Pass [facility], [address] [address] Social History Tobacco Use Types Packs/Day Years [...] Contact Info) Description 07/12/2024 Procedure Pass [address] [address] 03/27/2025 1:00 PM EST Office Visit [facility] Internal Medicine 40 [place] [address] Darrell Sutherland MD 40 [place] [address] 07/10/2025 11:10 AM EDT Appointment [address] [address] Ciro Kelley MD [address] [place] [address] Avtar [email or web address] 07/10/2025 12:00 PM EDT Appointment [facility], X-Ray - [address] [address] Ciro Kelley MD [address] [place] [address] Avtar [email or web address] 07/16/2025 3:00 PM EDT Telemedicine - audio only [facility] Radiology Cross Sectional Clinic 70 [facility], 3rd Floor, [place] [address] Ciro Kelley MD [address] [place] [address] Avtar [email or web address] documented as of this encounter Visit Diagnoses Not on filedocumented in this encounter Additional Health Concerns Infection Onset Date Last Indicated Resolved Time CoV-Risk 07/13/2023 07/13/2023 07/24/2023 1:22 AM EDT Assessment Noted Time PHQ-2 Depression Total Score: 0 01/26/20 12:55 PM EST documented as of this encounter Care Teams Secondary School Teacher Relationship Specialty Start Date End Date Darrell Sutherland MD 40 [place] [address] [email or web address] PCP - General Internal Medicine 01/11/17 Darrell Sutherland MD [address] [place] [address] Insurance Assigned Provider 05/28/23 Travis Monge MD [address] [place] [address] [place] [address] Pulmonary Disease 06/01/22 Melanie Henson, RN [address] [place] [address] [email or web address] PHCM Conflicts Analyst 09/19/23 10/24/23 documented as of this encounter Additional Source Comments The information contained in this document represents components of the legal health record. It is not the complete legal health record.[facility]
--- OUTSIDE RECORDS SUMMARY | 2025-01-24 11:25 | XMS_ITS | Encounter Summary ---
Author Organization [facility] Address [address] [place] [address] Phone Care Team Providers Care Line Production Cook Name Role Phone Darrell Sutherland MD Primary Care Provider Darrell Sutherland MD Unavailable [phone] Travis Monge MD Unavailable Melanie Henson RN Unavailable Encounter Details Date Type Department Care Team (Late st Contact Info) Description 06/08/[address] [facility] Periop [address] [place] [address] Social History Tobacco Use Types Packs/Day Years [...] (Latest Contact Info) Description 07/12/2024 Procedure Pass [facility] 30 [place] [address] 03/27/2025 1:00 PM EST Office Visit [facility] Internal Medicine [address] [place] [address] Darrell Sutherland MD 40 [place] [address] [email or web address] 07/10/2025 11:10 AM EDT Appointment [facility], Mri - [address] [address] Ciro Kelley MD [address] [place] [address] Avtar [email or web address] 07/10/2025 12:00 PM EDT Appointment [facility] X-Ray [address] [address] Ciro Kelley MD [address] [place] [address] Avtar [email or web address] 07/16/2025 3:00 PM EDT Telemedicine - audio only [facility] Radiology Cross [facility]al Clinic 70 [facility], 3rd Floor, [place] [address] Ciro Kelley MD [address] [place] [address] Avtar [email or web address] documented as of this encounter Visit Diagnoses Not on filedocumented in this encounter Additional Health Concerns Infection Onset Date Last Indicated Resolved Time CoV-Risk 07/13/2023 07/13/2023 07/24/2023 1:22 AM EDT Assessment Noted Time PHQ-2 Depression Total Score: 0 01/26/20 12:55 PM EST documented as of this encounter Care Teams Line Production Cook Relationship Specialty Start Date End Date Darrell Sutherland MD [address] [place] [address] [email or web address] PCP - General Internal Medicine 01/11/17 Darrell Sutherland MD [address] [place] [address] [email or web address] Insurance Assigned Provider 05/28/23 Travis Monge MD [address] [place] [address] [place] [address] Pulmonary Disease 06/01/22 Melanie Henson, RN [address] [place] [address] [email or web address] PHCM Guest Services Representative 09/19/23 10/24/23 documented as of this encounter Additional Source Comments The information contained in this document represents components of the legal health record. It is not the complete legal health record.[facility]
--- OUTSIDE RECORDS SUMMARY | 2025-01-24 11:26 | XMS_ITS | Encounter Summary ---
Author Organization [facility] Address [address] [employer] [address] [address] Phone Care Team Providers Care Brass Molder Helper Name Role Phone Darrell Sutherland MD Primary Care Provider Darrell Sutherland MD Unavailable [phone] Travis Monge MD Unavailable Melanie Henson RN Unavailable [phone] Encounter Details Date Type Department Care Team (Late st Contact Info) Description 01/18/2023 Procedure Pass [facility], [address] [address] Social History Tobacco Use Types Packs/Day Years [...] (Latest Contact Info) Description 07/12/2024 Procedure Pass [address] [address] 03/27/2025 1:00 PM EST Office Visit [facility] Internal Medicine [address] [place] [address] Darrell Sutherland MD [address] [place] [address] 07/10/2025 11:10 AM EDT Appointment [address] [address] Ciro Kelley MD [address] [place] [address] Avtar [email or web address] 07/10/2025 12:00 PM EDT Appointment [facility], X-Ray - [address] [address] Ciro Kelley MD [address] [place] [address] Avtar [email or web address] 07/16/2025 3:00 PM EDT Telemedicine - audio only [facility] Radiology [facility] 70 [facility], 3rd Floor, [place] [address] Ciro Kelley MD [address] [place] [address] Avtar [email or web address] documented as of this encounter Visit Diagnoses Not on filedocumented in this encounter Additional Health Concerns Infection Onset Date Last Indicated Resolved Time CoV-Risk 07/13/2023 07/13/2023 07/24/2023 1:22 AM EDT Assessment Noted Time PHQ-9 Depression Total Score: 6 01/28/20 23 12:49 PM EST PHQ-2 Depression Total Score: 4 01/28/20 23 12:49 PM EST documented as of this encounter Care Teams Brass Molder Helper Relationship Specialty Start Date End Date Darrell Sutherland MD [address] [place] [address] [email or web address] PCP - General Internal Medicine 01/11/17 Darrell Sutherland MD [address] [place] [address] Insurance Assigned Provider 05/28/23 Travis Monge MD [address] [place] [address] [place] [address] Pulmonary Disease 06/01/22 Melanie Henson, RN [address] [place] [address] [phone] [email or web address] Vending Attendant 09/19/23 10/24/23 documented as of this encounter Additional Source Comments The information contained in this document represents components of the legal health record. It is not the complete legal health record.[facility]
--- OUTSIDE RECORDS SUMMARY | 2025-01-24 11:26 | XMS_ITS | Encounter Summary ---
Author Organization [facility] Address 399 [facility] [address] [place] [address] Phone Care Team Providers Care Bowling Teacher Name Role Phone Darrell Sutherland MD Unavailable [phone] Radha Giron GOLD LEAF PRINTER Unavailable [phone] Kianna Abreu GOLD LEAF PRINTER Unavailable [phone] Ky Barone BICYCLE MECHANIC Unavailable Darrell Sutherland MD Primary Care Provider Darrell Sutherland MD Unavailable [phone] Travis Monge MD Unavailable [phone] Melanie Henson RN Unavailable Encounter Details Date Type Department Care Team (Latest Contact Info) Description 06/01/2017 Transcribe Orders [facility] [place] [address] [place], [place] [phone] Darrell Sutherland MD [address] [place], [place] [phone] [email or web address] Pure hypercholesterolemia (Primary Dx); Essential [...] Contact Info) Description 07/12/2024 Procedure Pass [address] [address] 03/27/2025 1:00 PM EST Office Visit [facility] Internal Medicine [address] [place] [address] Darrell Sutherland MD [address] [place] [address] 07/10/2025 11:10 AM EDT Appointment [address] [address] Ciro Kelley MD [address] [place] [address] Avtar [email or web address] 07/10/2025 12:00 PM EDT Appointment [facility], X-Ray - [address] [address] Ciro Kelley MD [address] [place] [address] Avtar [email or web address] 07/16/2025 3:00 PM EDT Telemedicine - audio only [facility] Radiology [facility] 70 [facility], 3rd Floor, [place] [address] Ciro Kelley MD [address] [place] [address] Avtar [email or web address] documented as of this encounter Results * (ABNORMAL) 25-OH vitamin D (06/01/2017 8:19 AM EDT) 25 OH VIT D (TOTAL) 24(L) 30 - 1,000 ng/mL [facility] Blood 06/01/2017 8:19 AM EDT 06/01/2017 8:23 AM EDT us Darrell Sutherland MD LAB BLOOD BKR ORDERABLES Yuliet l Result [address] [address] * Magnesium (06/01/2017 8:19 AM EDT) [facility] MAGNESIUM 2.1 1.6 - 2.6 mg/dL [facility] Blood 06/01/2017 8:19 AM EDT 06/01/2017 8:23 AM EDT us Darrell Sutherland MD LAB BLOOD BKR ORDERABLES Yuliet l Result [address] [address] * Comprehensive metabolic panel (06/01/2017 8:19 AM EDT) Pathologist [facility] SODIUM 141 133 - 146 mmol/L [facility] POTASSIUM 3.8 3.3 - 5.1 mmol/L [facility] CHLORIDE 101 96 - 108 mmol/L [facility] CO2 27 21 - 35 mmol/L [facility] BUN 18 6 - 19 mg/dL [facility] CREATININE 0.60 0.5 - 1.5 mg/dL [facility] GLUCOSE 92 70 - 99 mg/dL [facility] ALBUMIN 4.1 3.9 - 4.8 g/dL [facility] TOTAL PROTEIN 7.2 6.5 - 8.0 g/dL [facility] CALCIUM 9.3 8.4 - 10.3 mg/dL [facility] ALKALINE PHOSPHATASE 71 39 - 117 U/L [facility] TOTAL BILIRUBIN 0.4 0.0 - 1.2 mg/dL [facility] AST 21 0 - 37 U/L [facility] ALT 20 0 - 40 U/L [facility] GLOBULIN 3.1 1 - 4.8 g/dL [facility] EGFR 90 >59 mL/min/1.7 3m2 [facility] Comment:If patient is black, multiply result by 1.159. The eGFR calculation has changed from the MDRD equation to the CKD-EPI equation as of April 26, 2017. ANION GAP 17 10 - 20 mmol/L [facility] Blood 06/01/2017 8:19 AM EDT 06/01/2017 8:23 AM EDT us Darrell Sutherland MD LAB BLOOD BKR ORDERABLES Yuliet l Result Performing Organization Address [facility] de Phone Number [address] [address] * TSH (06/01/2017 8:19 AM EDT) TSH 1.86 0.27 - 4.20 uIU/mL [facility] Blood 06/01/2017 8:19 AM EDT 06/01/2017 8:23 AM EDT us Darrell Sutherland MD LAB BLOOD BKR ORDERABLES Yuliet l Result Performing Organization Address [facility] Co de Phone Number [address] [address] * Lipid panel (06/01/2017 8:19 AM EDT) HDL 46 mg/dL [facility] Comment: Interpretation: Risk Level Females Decreased >55mg/dL Average 50-55 mg/dL Increased <50 mg/dL CHOLESTEROL 191 0 - 240 mg/dL [facility] TRIGLYCERIDES 153 30 - 160 mg/dL [facility] LDL 114 50 - 129 mg/dL [facility] Comment: LDL levels in terms of risk for coronary heart disease: <100 mg/dL: Optimal 100-129 mg/dL: Near or above optimal 130-159 mg/dL: Borderline high 160-189 mg/dL: High >190 mg/dL: Very High CARDIAC RISK RATIO 4.2 3.3 - 4.4 C [facility] Blood 06/01/2017 8:19 AM EDT 06/01/2017 8:23 AM EDT us Darrell Sutherland MD LAB BLOOD BKR ORDERABLES Yuliet l Result Performing Organization Address City/[facility]/ZIP Co de Phone Number [address] [address] * (ABNORMAL) CBC (06/01/2017 8:19 AM EDT) WBC 6.60 3.40 - 11.20 K/uL [facility] RBC 4.84(H) 3.80 - 4.80 M/uL [facility] HGB 13.8 12.0 - 15.0 g/dL [facility] HCT 42.8 36.0 - 46.0 % [facility] PLT 226 130 - 400 K/uL [facility] MCV 88.4 79.0 - 98.0 fL [facility] MCH 28.5 27.0 - 34.8 pg [facility] MCHC 32.2 31.5 - 36.0 g/dL [facility] RDW 14.2 10.8 - 14.6 % [facility] MPV 10.0 9.4 - 12.4 fl [facility] NRBC 0.00 /100 WBCs [facility] ABSOLUTE NRBC 0.00 K/uL [facility] Blood 06/01/2017 8:19 AM EDT 06/01/2017 8:23 AM EDT Darrell Sutherland MD LAB BLOOD BKR ORDERABLES Yuliet l Result Performing Organization Address [facility]/ZIP Co de Phone Number [address] [address] documented in this encounter Visit Diagnoses Diagnosis Pure hypercholesterolemia- Primary Essential hypertension, benign Vitamin D deficiency documented in this encounter Additional Health Concerns Infection Onset Date Last Indicated Resolved Time CoV-Risk 07/13/2023 07/13/2023 07/24/2023 1:22 AM EDT Assessment Noted Time PHQ-2 Depression Total Score: 0 04/30/19 18 10:53 AM EST documented as of this encounter Care Teams Bowling Teacher Relationship Specialty Start Date End Date Darrell Sutherland MD [address] [place] [address] PCP - General Internal Medicine 01/11/17 Darrell Sutherland MD [address] [place] [address] Historical LMR Provider 12/11/16 07/31/20 Radha Giron, JONNATHAN [address] [place] [address] [place] [address] Historical LMR Provider 12/11/16 Kianna Abreu NP [address] [place] [address] [address] [place] [address] Historical LMR Provider 12/11/16 07/31/20 Ky Barone CNP [address] [place] [address], [address] [place] [address] Historical LMR Provider 12/11/1607/31 Darrell Sutherland MD [address] [place] [address] Insurance Assigned Provider 05/28/23 Travis Monge MD [address] [place] [address] [place] [address] Pulmonary Disease 06/01/22 Melanie Henson, RN [address] [place] [phone] [email or web address] PHC Fuel Efficient Aircraft Designer 09/19/23 10/24/23 documented as of this encounter Additional Source Comments The information contained in this document represents components of the legal health record. It is not the complete legal health record.[facility]
--- OUTSIDE RECORDS SUMMARY | 2025-01-24 11:26 | XMS_ITS | Encounter Summary ---
Author Organization [facility] Address [address] [employer] [facility] [address] [place] [address] Phone Care Team Providers Care Director Clinical Information Services Name Role Phone Darrell Sutherland MD Primary Care Provider [phone] Darrell Sutherland MD Unavailable [phone] Travis Monge MD Unavailable Melanie Henson RN Unavailable [phone] Encounter Details Date Type Department Care Team (Late st Contact Info) Description 07/26/2023 Procedure Pass [facility], [address] [address] Social History Tobacco Use Types Packs/Day Years [...] (Latest Contact Info) Description 07/12/2024 Procedure Pass [address] [address] 03/27/2025 1:00 PM EST Office Visit [facility] Internal Medicine [address] [place] [address] Darrell Sutherland MD [address] [place] [address] 07/10/2025 11:10 AM EDT Appointment [address] [address] Ciro Kelley MD [address] [place] [address] Avtar [email or web address] 07/10/2025 12:00 PM EDT Appointment [facility], X-Ray - [address] [address] Ciro Kelley MD [address] [place] [address] Avtar [email or web address] 07/16/2025 3:00 PM EDT Telemedicine - audio only [facility] Radiology Cross Sectional Clinic 70 [facility], 3rd Floor, [place] [address] Ciro Kelley MD [address] [place] [address] Avtar [email or web address] documented as of this encounter Visit Diagnoses Not on filedocumented in this encounter Additional Health Concerns Assessment Noted Time PHQ-9 Depression Total Score: 6 01/28/20 23 12:49 PM EST PHQ-2 Depression Total Score: 0 02/23/19 25 12:42 PM EST documented as of this encounter Care Teams Director Clinical Information Services Relationship Specialty Start Date End Date Darrell Sutherland MD [address] [place] [address] PCP - General Internal Medicine 01/11/17 Darrell Sutherland MD [address] [place] [address] Insurance Assigned Provider 05/28/23 Travis Monge MD [address] [place] [address] [place] [address] Pulmonary Disease 06/01/22 Melanie Henson, RN [address] [place] [address] [phone] PHCM Circulation Man 09/19/23 10/24/23 documented as of this encounter Additional Source Comments The information contained in this document represents components of the legal health record. It is not the complete legal health record.[facility]
== END 2025-01-24 10:05 | disposition home or self-care (01) ==
LOC: HO.ACS 09:50
PROVIDERS: PCP Internal Medicine; Visit Provider Internal Medicine Medical Oncology
DX: Z79.01 Long term (current) use of anticoagulants (principal)

== ENCOUNTER → 2025-01-24 09:50 | Outpatient (BNVA) | payer MEDICARE, SELFPAY | PROVIDERS: PCP Internal Medicine; Visit Provider Internal Medicine Medical Oncology | DX: I48.19 Other persistent atrial fibrillation (principal); I26.99 Other pulmonary embolism without acute cor pulmonale; Z51.81 Encounter for therapeutic drug level monitoring; Z79.01 Long term (current) use of anticoagulants | CPT/HCPCS: 85610; 99211 ==

== ENCOUNTER 2025-02-07 09:56 | Outpatient (AMB) | payer MEDICARE, SELFPAY ==
--- NOTE | 2025-02-07 10:00 | MHC.OFFVIS ---
Vital Signs 02/07/25 10:01 Height 5 ft Weight 154 lb 5.177 oz BMI 30.1 BP 120/60 Blood Pressure Location Lt brachial Position Sitting Pulse 70 Pulse Source Monitor Intake Visit Reasons: 6 mth f/up echo Allergies amlodipine Allergy (Intermediate, Verified 01/24/25 09:51) Difficulty Breathing latex (LATEX) Allergy (Intermediate, Verified 01/24/25 09:51) RASH seasonal Allergy (Intermediate, Uncoded 01/24/25 09:51) Sneezing altace Adverse Reaction (Mild, Uncoded 01/24/25 09:51) Cough Medication List - Last Reconciled 02/07/25 by Rob Ryan MD atenolol 50 mg PO BID cholecalciferol (vitamin D3) 25 mcg PO DAILY digoxin 125 mcg PO DAILY furosemide (Lasix) 20 mg PO DAILY PRN olmesartan 20 mg PO DAILY Oxygen Home Use As directed warfarin 5 mg See Protocol PO DAILY HPI Comments Details: Sudha comes for follow-up. She has been doing very well from cardiac perspective. She has no worsening symptoms of heart failure. Denies any significant weight gain or leg edema or orthopnea or PND. She uses oxygen at nighttime from pulmonary perspective. She uses Lasix as need be. Overall otherwise doing well. No exertional chest pain. No lightheadedness, syncope. No prolonged palpitation irregular heartbeat. [facility] Medical History Pulmonary nodules Pulmonary embolism History of kidney disease Pulmonary nodule Renal cell cancer Renal cell carcinoma of right kidney Chronic respiratory failure with hypoxia Pneumonitis ILD (interstitial lung disease) Surgical History History of right knee surgery (~10/2016) History of History of cholecystectomy Social History Household Members: None Housing: Condominium Do you presently have visiting nurse or other home services: No Alcohol intake: former Patient Tobacco Use Status: Former Tobacco user Tobacco use type: Cigarette Years Smoked: 5 Advance Directives Date on File: 12/01/22 service: No Review of Systems Const Denies weakness Eyes Reports no additional complaints ENT Denies dizziness Card Reports no additional complaints, Denies chest pain, Denies chest pain with activity, Denies syncope, Denies rapid heart rate, Denies pedal edema, Denies edema, Denies leg edema, Denies lightheadedness, Denies palpitations, Denies dyspnea, Denies dyspnea on exertion and Denies orthopnea Resp Reports no additional complaints, Denies cough, Denies dyspnea and Denies dyspnea on exertion GI Denies hematochezia and Denies change in stool character Musc Denies abnormal gait, Denies muscle cramps, Denies muscle weakness, Denies numbness, Denies radiating pain into limb and Denies tingling Neuro Denies abnormal gait, Denies dizziness, Denies syncope, Denies numbness, Denies tingling and Denies weakness Endo Denies palpitations Physical Exam Vital Signs: Last Vital Signs Pulse 70 02/07/25 10:01 BP 120/60 02/07/25 10:01 BMI result Body Mass Index 30.1 Const General: cooperative, healthy appearing, comfortable and no acute distress Orientation/consciousness: patient oriented x3 Neck Neck: Yes normal visual inspection and Yes no JVD Chest Chest palpation & inspection: normal inspection of the chest Resp Effort & Inspection: normal respiratory effort Auscultation: crackles (each base coarse), no rhonchi and no wheezes Cardio Jugular venous distension: no JVD Rhythm: abnormal rhythm irregularly irregular Heart sounds: S1 normal heart sound present, S2 normal heart sound present, no murmurs and no rubs Neuro General: patient oriented x3 Extrem General: Yes normal to inspection and No no pedal edema Psych Appearance: grossly normal Mental Status: mental status grossly normal Speech and movement: Normal speech and movement present Office Procedures EKG Details: EKGs shows atrial fibrillation with rightward axis at 70 beats per minute with nonspecific ST-T changes 45610-[id number], Complete Assessment & Plan Assessment & Plan (1) Atrial fibrillation: Code(s): I48.91 - Unspecified atrial fibrillation Category: Medical Qualifiers: Atrial fibrillation type: persistent (not longstanding) Qualified Code(s): I48.19 - Other persistent atrial fibrillation Plan: Chronic rate control atrial fibrillation and has failed rhythm control approach in this elderly woman currently rate controlled with digoxin and atenolol. She has done extremely well from that perspective. Continue full oral anticoagulation, currently on warfarin being followed by [facility]. Maintain target INR between 2 and 3. Semi annual digoxin assay and renal function should be pursued. (2) (HFpEF) heart failure with preserved ejection fraction: Code(s): I50.30 - Unspecified diastolic (congestive) heart failure Category: Medical Plan: Heart failure preserved ejection fraction, clinically euvolemic and well compensated off any diuretic regimen today. Clinically understands management of heart failure. We discussed this in details. Use Lasix as need be. Daily weight monitoring avoidance salt loading was discussed. Advised to call me with worsening symptoms. Continue aggressive rate control as above. Will follow up in the clinic in 6 months time, sooner PRN. Thank you for allowing me to partake in her care Orders: Orders Digoxin Today I48.20 - Chronic atrial fibrillation, unspecified, I50.30 - Unspecified diastolic (congestive) heart failure Basic Metabolic Panel Today I50.30 - Unspecified diastolic (congestive) heart failure Coding Level of Care Code Est Pt Level 4 (14241) Diagnoses Persistent atrial fibrillation I48.19 Atrial fibrillation type: persistent (not longstanding) (HFpEF) heart failure with preserved ejection fraction I50.30 CPT Codes EKG - CPT: 39202-[id number], Complete ([id number])
[2025-02-07 10:01] VITALS: BP 120/60; PULSE 70; BMI 30.1
--- OUTSIDE RECORDS SUMMARY | 2025-02-07 12:15 | XMS_ITS | Patient Health Record ---
Author Organization [facility] Address [address] [place] [phone] Care Team Providers Care Retread Builder Name Role Phone Darrell Sutherland MD Primary Care Provider Jay Talbot [phone] Allergies No Known Allergies Reason For Referral No Information Medications Medication SIG (Take, Route, Frequency, Duration) Notes Start Date End Date Status Digoxin 250 MCG Tablet Oral; Duration: 30 Active Losartan Potassium 50 MG Tablet Oral; Duration: 30 Active Atenolol 50 MG Tablet 1 tablet Orally Once a day Active Lovenox Active Vitamin D Active Social History Social History Additional Details Category Social Info Options Details Miscellaneous: Marital status: 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 [employer] Section Notes: Nonsmoker; no sig alcohol Nonsmoker; no sig alcohol Problems Problem Type SNOMED Code ICD Code Onset Dates Problem Status W/U Status Risk Notes Problem Diverticular disease of colon (022120849) Diverticulosis of large intestine without perforation or abscess without bleeding (K57.30) Active confirmed Problem Gastrointestinal hemorrhage (22292648) Lower GI bleed (K92.2) Active confirmed Plan Of Treatment Future Test Test Name Order Date COLONOSCOPY 02/27/2013 COLONOSCOPY 05/12/2023 Insurance Providers Payer Name Payer Address Payer Phone Subscriber Number Group Number Insured Name Patient Relationship to Insured Coverage Start Date Coverage End Date MEDICARE OF [place] [address] [place] [address] [phone] [id number] ROLAN GEORGE Self - patient is the insured [employer] ATT[employer] CLAIMS [address] [place] [phone] [id number] ROLAN GEORGE Self - patient is the insured Medical (General) History Medical History History ICD Code Choledocholithiasis--removed via ERCP in 02/2010 prior to Lap [facility] Hypertension Denies [place],DM,CVA,renal disease AFIB - Dr. Ryan--Unsuccessful cardiover shanthi 02/2023 Interstitiail lung disease-Dr. 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 Negative colonoscopy in 06/2013 Lower GI bleed 05/04/2023 Surgical History Surgery Date(Month/Year) Knee surgery Cholecystectomy 2010
--- OUTSIDE RECORDS SUMMARY | 2025-02-07 12:15 | XMS_ITS | Clinical Summary ---
Author Organization [facility] Address [address] [address] Phone Care Team Providers Care Warp Clamper Name Role Phone Darrell Sutherland MD Primary Care Provider [phone] Darrell Sutherland MD Unavailable [phone] Travis Monge MD Unavailable Allergies Active Allergy [...] bedtime. And with exertion as needed Active furosemide (LASIX) 20 MG tablet Take 20 mg by mouth every other day. Managed by Dr. Ryan [facility] Card[facility] Active olmesartan (BENICAR) 20 mg tablet Take 20 mg by mouth every morning. 08/29/19 25 Active hydrocortisone 2.5 % cream Apply 1 Application topically as needed (for previous incision site on lower abdomen). 09/14/19 25 Active warfarin (COUMADIN) 5 MG tabletIndication s:Persistent atrial fibrillation,Kranthi ateral pulmonary embolism Take 1-1.5 tablets (5-7.5 mg total) by mouth as directed. Alternating 1 tablet qod and 1.5 tablets qod 135 tablet 3 11/29/19 25 Active atenolol (TENORMIN) 50 mg tabletIndication s:Essential hypertension Take 1 tablet (50 mg total) by mouth 2 (two) times a day. 180 tablet 3 02/07/20 25 Active atenolol (TENORMIN) 50 mg tabletIndication s:Essential hypertension Take 1 tablet (50 mg total) by mouth 2 (two) times a day. 180 tablet 3 02/10/20 24 025 Discontin ued(Reord er) Active Problems Problem [...] lung disease) 04/01/2022 Overview (11/07/2023): Saw pulm Filiberto Arellano, 07/26/23 at [facility]- for sick visit after abnormal imaging- plan [...] Encounters Date Type Department Care Team Description 02/06/2025 Refill [facility] Primary [facility] 40 [facility] Darell ValenciajosetteDIANE [address] Darrell Sutherland MD Medication Refill 11/27/2024 Refill [facility] 40 [facility] Darell Valenciajosette DIANE [address] Darrell Sutherland MD Medication Refill from Last [...] (Latest Contact Info) Description 07/12/2024 Procedure Pass [address] [address] 03/27/2025 1:00 PM EST Office Visit [facility] 40 [place] [address] Darrell Sutherland MD [address] [place] [address] [email or web address] 07/10/2025 11:10 AM EDT Appointment [address] [address] Ciro Kelley MD [address] [place] [address] [email or web address] [email or web address] 07/10/2025 12:00 PM EDT Appointment [facility] X-Ray - [address] [address] Ciro Kelley MD [address] [place] [address] Avtar [email or web address] 07/16/2025 3:00 PM EDT Telemedicine - audio only [facility] 70 [facility], 3rd Floor, [place] [address] Ciro Kelley MD [address] [place] [address] [email or web address] Health Maintenance Due Date Last Done Comments ZOSTER VACCINES (1 of 2) 01/16/2009 11/21/2008 FOLLOW UP BONE DENSITY TESTING 07/15/2019 07/14/2017 INFLUENZA VACCINE (#1) 2024 4, 11/27/2022, 11/27/2022, Additional history exists COVID-19 VACCINE [...] Basic metabolic panel (08/07/2024 11:15 AM EDT) us Historical Provider LAB BLOOD BKR ORDERABLES Final Result * OUTSIDE BONE DENSITY SCREENING (07/14/2017) [facility] BONE DENSITY SCREENING - EXTERNAL 2 yr recall us Historical Provider HEALTH MAINTENANCE Final Result from Last 3 Months or Most Recently Relevant to Health Maintenance Insurance MEDICARE PART A & B [employer] SUPPLEMENT MEDICARE PART A & B [employer] SUPPLEMENT MEDICARE PART A & B [employer] SUPPLEMENT MEDICARE PART A & B [employer] SUPPLEMENT MEDICARE PART A & B [facility] MEDEX SUPPLEMENT MEDICARE PART A & B [employer] MEDEX SUPPLEMENT MEDICARE PART A & B [employer] MEDEX SUPPLEMENT MEDICARE PART A & B [employer] MEDEX SUPPLEMENT MEDICARE PART A & B [employer] MEDEX SUPPLEMENT Care Teams Warp Clamper Relationship Specialty Start Date End Date Darrell Sutherland MD [address] [place] [address] [email or web address] PCP - General Internal Medicine 01/11/17 Darrell Sutherland MD [address] [place] [address] [email or web address] Insurance Assigned Provider 05/28/23 Travis Monge MD [address] [place] [address] [place] [address] Pulmonary Disease 06/01/22 Additional Source Comments The information contained in this document represents components of the legal health record. It is not the complete legal health record.[facility]
--- OUTSIDE RECORDS SUMMARY | 2025-02-07 12:15 | XMS_ITS | Encounter Summary ---
Author Organization [facility] Address [address] [address] Phone Care Team Providers Care Book Editor Name Role Phone Darrell Sutherland MD Primary Care Provider Darrell Sutherland MD Unavailable Travis Monge MD Unavailable Melanie Henson RN Unavailable Encounter Details Date Type Department Care Team (Late st Contact Info) Description 06/10/[address] [facility] PRE/PACU [address] [place] [address] Wanda Trevino, RN [address] [place] [address] [email or web address] Social History Tobacco Use Types [...] (Latest Contact Info) Description 07/12/2024 Procedure Pass [facility], [address] [address] 03/27/2025 1:00 PM EST Office Visit [facility] 40 [place] [address] Darrell Sutherland MD [address] [place] [address] [email or web address] 07/10/2025 11:10 AM EDT Appointment [facility], Mri - [address] [address] Ciro Kelley MD [address] [place] [address] Avtar [email or web address] 07/10/2025 12:00 PM EDT Appointment [facility] X-Ray - [address] [address] Ciro Kelley MD [address] [place] [address] Avtar [email or web address] 07/16/2025 3:00 PM EDT Telemedicine - audio only [facility] 70 [facility], 3rd Floor, [place] [address] Ciro Kelley MD [address] [place] [address] Avtar [email or web address] documented as of this encounter Visit Diagnoses Not on filedocumented in this encounter Additional Health Concerns Infection Onset Date Last Indicated Resolved Time CoV-Risk 07/13/2023 07/13/2023 07/24/2023 1:22 AM EDT Assessment Noted Time PHQ-2 Depression Total Score: 0 01/26/20 12:55 PM EST documented as of this encounter Care Teams Book Editor Relationship Specialty Start Date End Date Darrell Sutherland MD 40 [place] [address] [email or web address] PCP - General Internal Medicine 01/11/17 Darrell Sutherland MD 40 [place] [address] [email or web address] Insurance Assigned Provider 05/28/23 Travis Monge MD [address] [place] [address] [place] [address] Pulmonary Disease 06/01/22 Melanie Henson, RN [address] [place] [phone] [email or web address] PHCM Haz Tech 09/19/23 10/24/23 documented as of this encounter Additional Source Comments The information contained in this document represents components of the legal health record. It is not the complete legal health record.[facility]
--- OUTSIDE RECORDS SUMMARY | 2025-02-07 12:15 | XMS_ITS | Patient Health Record ---
Author Organization [facility] Shawanda joshua GalindoRamo Address [address] [place] [address] Care Team Providers Care Transformer Repairer Name Role Phone Darrell Sutherland MD Primary Care Provider Dylon Morton Unavailable [phone] Allergies Allergen (clinical drug ingredient) Drug/Non Drug [...] Status Risk Notes Problem Acquired hallux valgus (04330945) Hallux valgus (acquired), left foot (M20.12) Active confirmed Problem Acquired hallux valgus (66778790) Hallux valgus (acquired), right foot (M20.11) Active confirmed Problem Acquired hammer toe of right foot (7444976692270 105) Other hammer toe(s) (acquired), right foot (M20.41) Active confirmed Problem Acquired hammer toe of left foot (2915623650048 103) Other hammer toe(s) (acquired), left foot (M20.42) Active confirmed Plan Of Treatment Pending Test Test Name Order Date X ray : Foot, right 3V 06/05/2020 Insurance Providers Payer Name Payer Address Payer Phone Subscriber Number Group Number Insured Name Patient Relationship to Insured Coverage Start Date Coverage End Date Medicare National Govt Sv[employer] [address] [place] [address] [id number] Sudha Meek Self - patient is the insured [employer] [address] [place] [address] [id number] Sudha Meek Self - patient is the insured Medical (General) History Medical History History ICD Code High blood pressure Surgical History Surgery Date(Month/Year) right knee replacement 10/2016
--- OUTSIDE RECORDS SUMMARY | 2025-02-07 12:15 | XMS_ITS | Encounter Summary ---
Author Organization [facility] Address 399 [employer] [facility] [address] [place] [address] Phone Care Team Providers Care Residential Advisor Name Role Phone Darrell Sutherland MD Primary Care Provider [phone] Darrell Sutherland MD Unavailable [phone] Travis Monge MD Unavailable Melanie Henson RN Unavailable [phone] Encounter Details Date Type Department Care Team (Late st Contact Info) Description 06/08/2022 Procedure Pass [facility] Periop [address] [place] [address] Social History Tobacco Use Types Packs/Day Years [...] (Latest Contact Info) Description 07/12/2024 Procedure Pass [facility], [address] [address] 03/27/2025 1:00 PM EST Office Visit [facility] [address] [place] [address] Darrell Sutherland MD 40 [place] [address] 07/10/2025 11:10 AM EDT Appointment [facility], Mri - [address] [address] Ciro Kelley MD [address] [place] [address] Avtar [email or web address] 07/10/2025 12:00 PM EDT Appointment [facility], X-Ray [address] [address] Ciro Kelley MD [address] [place] [address] Avtar [email or web address] 07/16/2025 3:00 PM EDT Telemedicine - audio only [facility] 70 [facility], 3rd Floor, [place] [address] Ciro Kelley MD [address] [place] [address] Avtar [email or web address] documented as of this encounter Visit Diagnoses Not on filedocumented in this encounter Additional Health Concerns Infection Onset Date Last Indicated Resolved Time CoV-Risk 07/13/2023 07/13/2023 07/24/2023 1:22 AM EDT Assessment Noted Time PHQ-2 Depression Total Score: 0 01/26/20 12:55 PM EST documented as of this encounter Care Teams Residential Advisor Relationship Specialty Start Date End Date Darrell Sutherland MD 40 [place] [address] [email or web address] PCP - General Internal Medicine 01/11/17 Darrell Sutherland MD [address] [place] [address] [email or web address] Insurance Assigned Provider 05/28/23 Travis Monge MD [address] [place] [address] Dr [place], [place] [phone] Pulmonary Disease 06/01/22 Melanie Henson, RN [address] [place] [phone] [email or web address] PHC Coil Strapper 09/19/23 10/24/23 documented as of this encounter Additional Source Comments The information contained in this document represents components of the legal health record. It is not the complete legal health record.[facility]
--- OUTSIDE RECORDS SUMMARY | 2025-02-07 12:15 | XMS_ITS | Encounter Summary ---
Author Organization [facility] Address [address] [employer] [address] [address] Phone Care Team Providers Care Compugraph Operator Name Role Phone Darrell Sutherland MD Primary Care Provider Darrell Sutherland MD Unavailable [phone] Travis Monge MD Unavailable Melanie Henson RN Unavailable Encounter Details Date Type Department Care Team (Late st Contact Info) Description 07/20/2022 Procedure Pass [facility], [address] [address] Social History Tobacco Use Types Packs/Day Years [...] (Latest Contact Info) Description 07/12/2024 Procedure Pass [facility], [address] [address] 03/27/2025 1:00 PM EST Office Visit [facility] 40 [place] [address] Darrell Sutherland MD 40 [place] [address] 07/10/2025 11:10 AM EDT Appointment [address] [address] Ciro Kelley MD [address] [place] [address] Avtar [email or web address] 07/10/2025 12:00 PM EDT Appointment [facility] X-Ray - [address] [address] Ciro Kelley MD [address] [place] [address] Avtar [email or web address] 07/16/2025 3:00 PM EDT Telemedicine - audio only [facility] 70 [facility], 3rd Floor, [place] [address] Ciro Kelley MD [address] [place] [address] Avtar [email or web address] documented as of this encounter Visit Diagnoses Not on filedocumented in this encounter Additional Health Concerns Infection Onset Date Last Indicated Resolved Time CoV-Risk 07/13/2023 07/13/2023 07/24/2023 1:22 AM EDT Assessment Noted Time PHQ-2 Depression Total Score: 0 01/26/20 12:55 PM EST documented as of this encounter Care Teams Compugraph Operator Relationship Specialty Start Date End Date Darrell Sutherland MD 40 [place] [address] [email or web address] PCP - General Internal Medicine 01/11/17 Darrell Sutherland MD 40 [place] [address] Insurance Assigned Provider 05/28/23 Travis Monge MD [address] [place] [address] [place] [address] Pulmonary Disease 06/01/22 Melanie Henson, RN [address] [place] [address] [email or web address] PHCM Quality Improvement Analyst 09/19/23 10/24/23 documented as of this encounter Additional Source Comments The information contained in this document represents components of the legal health record. It is not the complete legal health record.[facility]
--- OUTSIDE RECORDS SUMMARY | 2025-02-07 12:15 | XMS_ITS | Encounter Summary ---
Author Organization [facility] Address [address] [place] [address] Phone Care Team Providers Care Telephone Triage Nurse Name Role Phone Darrell Sutherland MD Primary Care Provider [phone] Darrell Sutherland MD Unavailable [phone] Travis Monge MD Unavailable Melanie Henson RN Unavailable [phone] Encounter Details Date Type Department Care Team (Late st Contact Info) Description 06/15/[address] [address] Social History Tobacco Use Types Packs/Day Years [...] Team (Latest Contact Info) Description 07/12/[address] [address] 03/27/2025 1:00 PM EST Office [facility] 40 [place] [address] Darrell Sutherland MD 40 [place] [address] 07/10/2025 11:10 AM EDT Appointment [facility] Mri - [address] [address] Ciro Kelley MD [address] [place] [address] Avtar [email or web address] 07/10/2025 12:00 PM EDT Appointment [facility] X-Ray - [address] [address] Ciro Kelley MD [address] [place] [address] Avtar [email or web address] 07/16/2025 3:00 PM EDT Telemedicine - audio only [facility] Inter[facility] 70 [facility], 3rd Floor, [place] [address] Ciro Kelley MD [address] [place] [address] Avtar [email or web address] documented as of this encounter Visit Diagnoses Not on filedocumented in this encounter Additional Health Concerns Infection Onset Date Last Indicated Resolved Time CoV-Risk 07/13/2023 07/13/2023 07/24/2023 1:22 AM EDT Assessment Noted Time PHQ-2 Depression Total Score: 0 01/26/20 12:55 PM EST documented as of this encounter Care Teams Telephone Triage Nurse Relationship Specialty Start Date End Date Darrell Sutherland MD [address] [place] [address] [email or web address] PCP - General Internal Medicine 01/11/17 Darrell Sutherland MD 40 [place] [address] [email or web address] Insurance Assigned Provider 05/28/23 Travis Monge MD [address] [place] [address] [place] [address] Pulmonary Disease 06/01/22 Melanie Henson, RN [address] [place] [address] [email or web address] PHCM Textile Knitter 09/19/23 10/24/23 documented as of this encounter Additional Source Comments The information contained in this document represents components of the legal health record. It is not the complete legal health record.[facility]
--- OUTSIDE RECORDS SUMMARY | 2025-02-07 12:16 | XMS_ITS | Encounter Summary ---
Author Organization [facility] Address 399 [employer] [facility] [address] [place] [address] Phone Care Team Providers Care Cook Helper Preserves Name Role Phone Darrell Sutherland MD Primary Care Provider Darrell Sutherland MD Unavailable [phone] Travis Monge MD Unavailable Melanie Henson RN Unavailable Encounter Details Date Type Department Care Team (Late st Contact Info) Description 06/08/2022 Procedure Pass [facility] Periop [address] [place] [address] Social History Tobacco Use Types Packs/Day Years [...] (Latest Contact Info) Description 07/12/2024 Procedure Pass [facility], [address] [address] 03/27/2025 1:00 PM EST Office Visit [facility] [address] [place] [address] Darrell Sutherland MD 40 [place] [address] 07/10/2025 11:10 AM EDT Appointment [facility], Mri - [address] [address] Ciro Kelley MD [address] [place] [address] Avtar [email or web address] 07/10/2025 12:00 PM EDT Appointment [facility], X-Ray [address] [address] Ciro Kelley MD [address] [place] [address] Avtar [email or web address] 07/16/2025 3:00 PM EDT Telemedicine - audio only [facility] 70 [facility], 3rd Floor, [place] [address] Ciro Kelley MD [address] [place] [address] Avtar [email or web address] documented as of this encounter Visit Diagnoses Not on filedocumented in this encounter Additional Health Concerns Infection Onset Date Last Indicated Resolved Time CoV-Risk 07/13/2023 07/13/2023 07/24/2023 1:22 AM EDT Assessment Noted Time PHQ-2 Depression Total Score: 0 01/26/20 12:55 PM EST documented as of this encounter Care Teams Cook Helper Preserves Relationship Specialty Start Date End Date Darrell Sutherland MD 40 [place] [address] PCP - General Internal Medicine 01/11/17 Darrell Sutherland MD [address] [place] [address] [email or web address] Insurance Assigned Provider 05/28/23 Travis Monge MD [address] [place] [address] Dr [place], [place] [phone] Pulmonary Disease 06/01/22 Melanie Henson, RN [address] [place] [phone] [email or web address] PHC Utility Mechanic 09/19/23 10/24/23 documented as of this encounter Additional Source Comments The information contained in this document represents components of the legal health record. It is not the complete legal health record.[facility]
--- OUTSIDE RECORDS SUMMARY | 2025-02-07 12:16 | XMS_ITS | Encounter Summary ---
Author Organization [facility] Address 399 [employer] [facility] [address] [place] [address] Phone Care Team Providers Care Kiln Stoker Name Role Phone Darrell Sutherland MD Primary Care Provider [phone] Darrell Sutherland MD Unavailable [phone] Travis Monge MD Unavailable Melanie Henson RN Unavailable [phone] Encounter Details Date Type Department Care Team (Late st Contact Info) Description 03/23/[address] [facility] [address] Scan [address] [address] Social History Tobacco Use Types Packs/Day Years [...] Team (Latest Contact Info) Description 07/12/[address] [address] 03/27/2025 1:00 PM EST Office Visit [facility] 40 [place] [address] Darrell Sutherland MD 40 [place] [address] 07/10/2025 11:10 AM EDT Appointment [facility], Mri - [address] [address] Ciro Kelley MD [address] [place] [address] Avtar [email or web address] 07/10/2025 12:00 PM EDT Appointment [facility], X-Ray [address] [address] Ciro Kelley MD [address] [place] [address] Avtar [email or web address] 07/16/2025 3:00 PM EDT Telemedicine - audio only [facility] 70 [facility], 3rd Floor, [place] [address] Ciro Kelley MD [address] [place] [address] Avtar [email or web address] documented as of this encounter Visit Diagnoses Not on filedocumented in this encounter Additional Health Concerns Infection Onset Date Last Indicated Resolved Time CoV-Risk 07/13/2023 07/13/2023 07/24/2023 1:22 AM EDT Assessment Noted Time PHQ-2 Depression Total Score: 0 01/26/20 12:55 PM EST documented as of this encounter Care Teams Kiln Stoker Relationship Specialty Start Date End Date Darrell Sutherland MD 40 [place] [address] [email or web address] PCP - General Internal Medicine 01/11/17 Darrell Sutherland MD [address] [place] [address] [email or web address] Insurance Assigned Provider 05/28/23 Travis Monge MD [address] [place] [address] [place] [address] Pulmonary Disease 06/01/22 Melanie Henson, RN [address] [place] [phone] [email or web address] PHC Chin Strap Sewer 09/19/23 10/24/23 documented as of this encounter Additional Source Comments The information contained in this document represents components of the legal health record. It is not the complete legal health record.[facility]
--- OUTSIDE RECORDS SUMMARY | 2025-02-07 12:16 | XMS_ITS | Encounter Summary ---
Author Organization [facility] Address [address] [facility] [address] [place] [address] Phone Care Team Providers Care Control Panel Assembler Name Role Phone Darrell Sutherland MD Unavailable Radha Giron CLEANING MANAGER Unavailable [phone] Kainna Abreu CLEANING MANAGER Unavailable [phone] Ky Barone CABLE SPLICER Unavailable Darrell Sutherland MD Primary Care Provider Darrell Sutherland MD Unavailable Travis Monge MD Unavailable Melanie Henson RN Unavailable [phone] Encounter Details Date Type Department Care Team (Latest Contact Info) Description 06/01/2017 Transcribe Orders [facility] [place] [address] [place], [place] [phone] Darrell Sutherland MD [address] [place], [place] [phone] [email or web address] Pure hypercholesterolemia (Primary Dx); Essential [...] (Latest Contact Info) Description 07/12/2024 Procedure Pass [address] [address] 03/27/2025 1:00 PM EST Office Visit [facility] [address] [place] [address] Darrell Sutherland MD [address] [place] [address] 07/10/2025 11:10 AM EDT Appointment [address] [address] Ciro Kelley MD [address] [place] [address] Avtar [email or web address] 07/10/2025 12:00 PM EDT Appointment [facility], X-Ray - [address] [address] Ciro Kelley MD [address] [place] [address] Avtar [email or web address] 07/16/2025 3:00 PM EDT Telemedicine - audio only [facility] [address] [facility], 3rd Floor, [place] [address] Ciro Kelley MD [address] [place] [address] Avtar [email or web address] documented as of this encounter Results * (ABNORMAL) 25-OH vitamin D (06/01/2017 8:19 AM EDT) Pathologist [facility] 25 [place] VIT D (TOTAL) 24(L) 30 - 1,000 ng/mL [facility] Blood 06/01/2017 8:19 AM EDT 06/01/2017 8:23 AM EDT us Darrell Sutherland MD LAB BLOOD BKR ORDERABLES Yuliet l Result [address] [address] * Magnesium (06/01/2017 8:19 AM EDT) [facility] MAGNESIUM 2.1 1.6 - 2.6 mg/dL [facility] Blood 06/01/2017 8:19 AM EDT 06/01/2017 8:23 AM EDT Darrell Sutherland MD LAB BLOOD BKR ORDERABLES Yuliet l Result [address] [address] * Comprehensive metabolic panel (06/01/2017 8:19 AM EDT) [facility] SODIUM 141 133 - 146 mmol/L [facility] POTASSIUM 3.8 3.3 - 5.1 mmol/L [facility] CHLORIDE 101 96 - 108 mmol/L [facility] CO2 27 21 - 35 mmol/L [facility] BUN 18 6 - 19 mg/dL [facility] CREATININE 0.60 0.5 - 1.5 mg/dL [facility] GLUCOSE 92 70 - 99 mg/dL [facility] ALBUMIN 4.1 3.9 - 4.8 g/dL [facility] TOTAL PROTEIN 7.2 6.5 - 8.0 g/dL [facility] CALCIUM 9.3 8.4 - 10.3 mg/dL [facility] ALKALINE PHOSPHATASE 71 39 - 117 U/L [facility] TOTAL BILIRUBIN 0.4 0.0 - 1.2 mg/dL [facility] AST 21 0 - 37 U/L [facility] ALT 20 0 - 40 U/L [facility] GLOBULIN 3.1 1 - 4.8 g/dL [facility] EGFR 90 >59 mL/min/1.7 3m2 [facility] Comment:If patient is black, multiply result by 1.159. The eGFR calculation has changed from the MDRD equation to the CKD-EPI equation as of April 26, 2017. ANION GAP 17 10 - 20 mmol/L [facility] Blood 06/01/2017 8:19 AM EDT 06/01/2017 8:23 AM EDT Darrell Sutherland MD LAB BLOOD BKR ORDERABLES Yuliet l Result Performing Organization Address [facility] Co de Phone Number [address] [address] * TSH (06/01/2017 8:19 AM EDT) TSH 1.86 0.27 - 4.20 uIU/mL [facility] Blood 06/01/2017 8:19 AM EDT 06/01/2017 8:23 AM EDT Darrell Sutherland MD LAB BLOOD BKR ORDERABLES Yuliet l Result Performing Organization Address [facility] Co de Phone Number [address] [address] * Lipid panel (06/01/2017 8:19 AM EDT) HDL 46 mg/dL [facility] Comment: Interpretation: Risk Level Females Decreased >55mg/dL Average 50-55 mg/dL Increased <50 mg/dL CHOLESTEROL 191 0 - 240 mg/dL [facility] TRIGLYCERIDES 153 30 - 160 mg/dL [facility] LDL 114 50 - 129 mg/dL [facility] Comment: LDL levels in terms of risk for coronary heart disease: <100 mg/dL: Optimal 100-129 mg/dL: Near or above optimal 130-159 mg/dL: Borderline high 160-189 mg/dL: High >190 mg/dL: Very High CARDIAC RISK RATIO 4.2 3.3 - 4.4 C [facility] Blood 06/01/2017 8:19 AM EDT 06/01/2017 8:23 AM EDT us Darrell Sutherland MD LAB BLOOD BKR ORDERABLES Yuliet l Result Performing Organization Address City/[facility] Co de Phone Number [address] [address] * (ABNORMAL) CBC (06/01/2017 8:19 AM EDT) WBC 6.60 3.40 - 11.20 K/uL [facility] RBC 4.84(H) 3.80 - 4.80 M/uL [facility] HGB 13.8 12.0 - 15.0 g/dL [facility] HCT 42.8 36.0 - 46.0 % [facility] PLT 226 130 - 400 K/uL [facility] MCV 88.4 79.0 - 98.0 fL [facility] MCH 28.5 27.0 - 34.8 pg [facility] MCHC 32.2 31.5 - 36.0 g/dL [facility] RDW 14.2 10.8 - 14.6 % [facility] MPV 10.0 9.4 - 12.4 fl [facility] NRBC 0.00 /100 WBCs [facility] ABSOLUTE NRBC 0.00 K/uL [facility] Blood 06/01/2017 8:19 AM EDT 06/01/2017 8:23 AM EDT Darrell Sutherland MD LAB BLOOD BKR ORDERABLES Yuliet l Result Performing Organization Address City/[facility]/ZIP Co de Phone Number [address] [address] documented in this encounter Visit Diagnoses Diagnosis Pure hypercholesterolemia- Primary Essential hypertension, benign Vitamin D deficiency documented in this encounter Additional Health Concerns Infection Onset Date Last Indicated Resolved Time CoV-Risk 07/13/2023 07/13/2023 07/24/2023 1:22 AM EDT Assessment Noted Time PHQ-2 Depression Total Score: 0 04/30/19 18 10:53 AM EST documented as of this encounter Care Teams Control Panel Assembler Relationship Specialty Start Date End Date Darrell Sutherland MD [address] [place] [address] PCP - General Internal Medicine 01/11/17 Darrell Sutherland MD [address] [place] [address] Historical LMR Provider 12/11/16 07/31/20 Radha Giron, JONNATHAN [address] [place] [address] [address] [place] [address] Historical LMR Provider 12/11/16 Kianna Abreu NP [address] [place] [address] 6 [place] [address] Historical LMR Provider 12/11/16 07/31/20 Ky Barone CNP [address] [place] [address], [address] [place] [address] Historical LMR Provider 12/11/1607/31 Darrell Sutherland MD [address] [place] [address] Insurance Assigned Provider 05/28/23 Travis Mogne MD [address] [place] [address] [place] [address] Pulmonary Disease 06/01/22 Melanie Henson, RN [address] [place] [address] [email or web address] [facility] Casing Grader 09/19/23 10/24/23 documented as of this encounter Additional Source Comments The information contained in this document represents components of the legal health record. It is not the complete legal health record.[facility]
--- OUTSIDE RECORDS SUMMARY | 2025-02-07 12:16 | XMS_ITS | Encounter Summary ---
Author Organization [facility] Address [address] [facility] [address] [place] [address] Phone Care Team Providers Care Letter Of Credit Clerk Name Role Phone Darrell Sutherland MD Primary Care Provider [phone] Darrell Sutherland MD Unavailable [phone] Travis Monge MD Unavailable Melanie Henson RN Unavailable [phone] Encounter Details Date Type Department Care Team (Late st Contact Info) Description 07/26/2023 Procedure Pass [facility], [address] [address] Social History Tobacco Use Types Packs/Day Years [...] Contact Info) Description 07/12/2024 Procedure Pass [address] [address] 03/27/2025 1:00 PM EST Office Visit [facility] [address] [place] [address] Darrell Sutherland MD [address] [place] [address] 07/10/2025 11:10 AM EDT Appointment [address] [address] Ciro Kelley MD [address] [place] [address] Avtar [email or web address] 07/10/2025 12:00 PM EDT Appointment [facility] X-Ray - [address] [address] Ciro Kelley MD [address] [place] [address] Avtar [email or web address] 07/16/2025 3:00 PM EDT Telemedicine - audio only [facility] [address] [facility], 3rd Floor, [place] [address] Ciro Kelley MD [address] [place] [address] Avtar [email or web address] documented as of this encounter Visit Diagnoses Not on filedocumented in this encounter Additional Health Concerns Assessment Noted Time PHQ-9 Depression Total Score: 6 01/28/20 23 12:49 PM EST PHQ-2 Depression Total Score: 0 02/23/19 25 12:42 PM EST documented as of this encounter Care Teams Letter Of Credit Clerk Relationship Specialty Start Date End Date Darrell Sutherland MD [address] [place] [address] PCP - General Internal Medicine 01/11/17 Darrell Sutherland MD [address] [place] [address] Insurance Assigned Provider 05/28/23 Travis Monge MD [address] [place] [address] [place] [address] Pulmonary Disease 06/01/22 Melanie Henson, RN [address] [place] [phone] PHCM Stone Trimmer 09/19/23 10/24/23 documented as of this encounter Additional Source Comments The information contained in this document represents components of the legal health record. It is not the complete legal health record.[facility]
--- OUTSIDE RECORDS SUMMARY | 2025-02-07 12:16 | XMS_ITS | Encounter Summary ---
Author Organization [facility] Address [address] [employer] [address] [address] Phone Care Team Providers Care Mystery Shopper Name Role Phone Darrell Sutherland MD Primary Care Provider [phone] Darrell Sutherland MD Unavailable [phone] Travis Monge MD Unavailable [phone] Melanie Henson RN Unavailable [phone] Encounter Details Date Type Department Care Team (Late st Contact Info) Description 01/18/2023 Procedure Pass [facility], [address] [address] Social History Tobacco Use Types Packs/Day Years [...] Procedure Pass [facility], [address] [address] 03/27/2025 1:00 PM EST Office Visit [facility] [address] [place] [address] Darrell Sutherland MD [address] [place] [address] 07/10/2025 11:10 AM EDT Appointment [address] [address] Ciro Kelley MD [address] [place] [address] Avtar [email or web address] 07/10/2025 12:00 PM EDT Appointment [facility] X-Ray - [address] [address] Ciro Kelley MD [address] [place] [address] Avtar [email or web address] 07/16/2025 3:00 PM EDT Telemedicine - audio only [facility] [address] [facility], 3rd Floor, [place] [address] Ciro Kelley MD [address] [place] [address] Avtar [email or web address] documented as of this encounter Visit Diagnoses Not on filedocumented in this encounter Additional Health Concerns Infection Onset Date Last Indicated Resolved Time CoV-Risk 07/13/2023 07/13/2023 07/24/2023 1:22 AM EDT Assessment Noted Time PHQ-9 Depression Total Score: 6 01/28/20 23 12:49 PM EST PHQ-2 Depression Total Score: 4 01/28/20 23 12:49 PM EST documented as of this encounter Care Teams Mystery Shopper Relationship Specialty Start Date End Date Darrell Sutherland MD [address] [place] [address] [email or web address] PCP - General Internal Medicine 01/11/17 Darrell Sutherland MD [address] [place] [address] Insurance Assigned Provider 05/28/23 Travis Monge MD [address] [place] [address] [place] [address] Pulmonary Disease 06/01/22 Melanie Henson, RN [address] [place] [phone] [email or web address] Director Fundraising 09/19/23 10/24/23 documented as of this encounter Additional Source Comments The information contained in this document represents components of the legal health record. It is not the complete legal health record.[facility]
--- OUTSIDE RECORDS SUMMARY | 2025-02-07 12:16 | XMS_ITS | Clinical Summary ---
Author Organization [facility] Address [address] [place] [address] Phone Care Team Providers Care Interactive Art Director Name Role Phone Darrell Sutherland MD Primary Care Provider [phone] Surgical History Surgery Date Site/Laterality Comments US [...] PM EST Appointment [facility] [address] [address] Health Maintenance Due Date Last [...] MEDICARE [facility] Care Teams Interactive Art Director Relationship Specialty Start Date End Date Darrell Sutherland MD [address] [place] [address] PCP - General Internal Medicine 12/12/23
== END 2025-02-07 10:16 | disposition home or self-care (01) ==
LOC: HO.HCS 09:57
PROVIDERS: PCP Internal Medicine; Visit Provider Internal Medicine Cardiovascular Disease
DX: I48.19 Other persistent atrial fibrillation (principal); I50.30 Unspecified diastolic (congestive) heart failure
CPT/HCPCS: 93010; 99214

== ENCOUNTER 2025-02-07 09:56 | Outpatient (REF) | payer MEDICARE, SELFPAY ==
[2025-02-07 12:48] LABS: Digoxin 0.5 ng/mL (0.8-2.0)
[2025-02-07 13:37] LABS: Anion Gap 13 (12-20); Blood Urea Nitrogen 16 mg/dL (9-16); Calcium 9.5 mg/dL (8.4-10.2); Carbon Dioxide 26 mmol/L (22-29); Chloride 105 mmol/L (96-108); Estimated Glomerular Filt Rate > 60; Potassium 4.0 mmol/L (3.3-5.1); Sodium 140 mmol/L (135-145)
== END 2025-02-07 09:57 | disposition home or self-care (01) ==
LOC: HO.LAB 09:56
PROVIDERS: PCP Internal Medicine; Visit Provider Internal Medicine Cardiovascular Disease
DX: I48.19 Other persistent atrial fibrillation (principal); I50.30 Unspecified diastolic (congestive) heart failure; Z87.891 Personal history of nicotine dependence; Z79.01 Long term (current) use of anticoagulants
CPT/HCPCS: 36415; 80048; 80162; 93005; 99212